=== PATIENT | female | born 1950 | race Caucasian/White ===

== ENCOUNTER 2020-08-29 13:30 | Outpatient (REF) | payer MEDICARE, OTHER, SELFPAY | END 2020-08-29 13:31 | disposition home or self-care (01) | LOC: HO.LNP 13:30 | PROVIDERS: PCP Internal Medicine; Referring Provider Internal Medicine; Visit Provider Internal Medicine Endocrinology, Diabetes & Metabolism | DX: E11.65 Type 2 diabetes mellitus with hyperglycemia (principal); E03.9 Hypothyroidism, unspecified; E78.5 Hyperlipidemia, unspecified; Z79.4 Long term (current) use of insulin | CPT/HCPCS: 99214 ==

== ENCOUNTER 2020-12-02 14:30 | Outpatient (REF) | payer MEDICARE, OTHER, SELFPAY | END 2020-12-02 14:31 | disposition home or self-care (01) | LOC: HO.HOSX 14:30 | PROVIDERS: Visit Provider Orthopaedic Surgery | DX: Z13.89 Encounter for screening for other disorder (principal) ==

== ENCOUNTER 2020-12-03 13:03 | Outpatient (REF) | payer MEDICARE, OTHER, SELFPAY ==
--- NOTE | 2020-12-03 13:09 | XR_ITS ---
EXAMINATION: BILATERAL KNEE X-RAY CLINICAL INFORMATION: Bilateral knee pain COMPARISON: Previous x-rays from 2011 TECHNIQUE: 3 views of each knee FINDINGS: Right: There is mild medial subluxation of the distal femur with respect to the proximal tibia. Bone alignment is normal. There is arthritis at the patellofemoral and femoral tibial joints with joint space narrowing and osteophyte formation. There is a moderate to large joint effusion. There may be ossified intra-articular loose bodies or complex joint effusion. Left: Bone alignment is normal. No fracture or dislocation is seen. There is mild arthritis at the patellofemoral and femoral tibial joints with joint space narrowing and osteophyte formation. There is a moderate to large joint effusion. XR/XR knee LT 2V IMPRESSION: Bilateral arthritis, right greater than left and large joint effusions. The right joint effusion appears heterogeneous in attenuation questionable for complex joint effusion versus possible ossified intra-articular loose bodies.
--- NOTE | 2020-12-03 13:09 | XR_ITS ---
EXAMINATION: BILATERAL KNEE X-RAY CLINICAL INFORMATION: Bilateral knee pain COMPARISON: Previous x-rays from 2011 TECHNIQUE: 3 views of each knee FINDINGS: Right: There is mild medial subluxation of the distal femur with respect to the proximal tibia. Bone alignment is normal. There is arthritis at the patellofemoral and femoral tibial joints with joint space narrowing and osteophyte formation. There is a moderate to large joint effusion. There may be ossified intra-articular loose bodies or complex joint effusion. Left: Bone alignment is normal. No fracture or dislocation is seen. There is mild arthritis at the patellofemoral and femoral tibial joints with joint space narrowing and osteophyte formation. There is a moderate to large joint effusion. XR/XR knee standing BI IMPRESSION: Bilateral arthritis, right greater than left and large joint effusions. The right joint effusion appears heterogeneous in attenuation questionable for complex joint effusion versus possible ossified intra-articular loose bodies.
--- NOTE | 2020-12-03 13:09 | XR_ITS ---
EXAMINATION: BILATERAL KNEE X-RAY CLINICAL INFORMATION: Bilateral knee pain COMPARISON: Previous x-rays from 2011 TECHNIQUE: 3 views of each knee FINDINGS: Right: There is mild medial subluxation of the distal femur with respect to the proximal tibia. Bone alignment is normal. There is arthritis at the patellofemoral and femoral tibial joints with joint space narrowing and osteophyte formation. There is a moderate to large joint effusion. There may be ossified intra-articular loose bodies or complex joint effusion. Left: Bone alignment is normal. No fracture or dislocation is seen. There is mild arthritis at the patellofemoral and femoral tibial joints with joint space narrowing and osteophyte formation. There is a moderate to large joint effusion. XR/XR knee RT 2V IMPRESSION: Bilateral arthritis, right greater than left and large joint effusions. The right joint effusion appears heterogeneous in attenuation questionable for complex joint effusion versus possible ossified intra-articular loose bodies.
== END 2020-12-03 13:04 | disposition home or self-care (01) ==
LOC: HO.HOSX 13:03
PROVIDERS: Visit Provider Orthopaedic Surgery
DX: M25.562 Pain in left knee (principal); M25.561 Pain in right knee
CPT/HCPCS: 73560; 73565; 99202

== ENCOUNTER 2020-12-29 10:13 | Outpatient (REF) | payer MEDICARE, OTHER, SELFPAY ==
[2020-12-29 11:50] LABS: Hematocrit 46.4 % (37-47); Hemoglobin 14.8 g/dl (12.0-16.0); Mean Corpuscular HGB Conc 31.9 g/dl (31.0-35.0); Mean Corpuscular Volume 90.8 fL (80-98); Mean Platelet Volume 10.4 fL (9.4-12.3); Platelet Count 215 X10*3/uL (160-400); Red Blood Count 5.11 X10*6/uL (4.20-5.50); Red Cell Distribution Width 12.1 % (11.0-16.0); White Blood Count 6.6 X10*3/uL (4.8-10.8)
[2020-12-29 12:18] LABS: Alanine Aminotransferase 19 U/L (0-31); Albumin Level 4.2 g/dL (3.5-5.0); Alkaline Phosphatase 49 U/L (39-117); Anion Gap 14 (12-20); Aspartate Amino Transferase 24 U/L (5-31); Bilirubin Total 0.7 mg/dL (0.0-1.0); Blood Urea Nitrogen 16 mg/dL (9-16); Calcium 9.4 mg/dL (8.4-10.2); Carbon Dioxide 32 mmol/L (22-29); Chloride 99 mmol/L (96-108); Cholesterol 149 mg/dL; Estimated Glomerular Filt Rate 52; Glucose Random 117 mg/dL (60-115); HDL Cholesterol 51 mg/dL; LDL Cholesterol Calculated 62 mg/dl; Potassium 4.8 mmol/L (3.3-5.1); Sodium 140 mmol/L (135-145); Total Protein 7.2 g/dL (6.5-8.0); Triglycerides 183 mg/dL
[2020-12-29 12:26] LABS: Thyroid Stimulating Hormone 3.27 uIU/mL (0.32-4.0)
[2020-12-29 12:33] LABS: Creatinine Urine 154.46 mg/dL; Microalbum/Creatinine Ratio Ur 18.7 ug/mg cr
[2020-12-29 18:45] LABS: Vitamin B12 497 pg/mL (200-900)
[2020-12-30 12:02] LABS: LDL Cholesterol Direct 75 mg/dL (<100)
== END 2020-12-29 10:14 | disposition home or self-care (01) ==
LOC: HO.LAB 10:13
PROVIDERS: Absent Provider Internal Medicine Endocrinology, Diabetes & Metabolism; PCP Internal Medicine; Visit Provider Internal Medicine
DX: Z01.810 Encounter for preprocedural cardiovascular examination (principal); I10 Essential (primary) hypertension; E78.5 Hyperlipidemia, unspecified; E11.65 Type 2 diabetes mellitus with hyperglycemia
CPT/HCPCS: 36415; 80053; 80061; 82043; 82607; 83721; 84439; 84443; 85027; 93005; 99202

== ENCOUNTER → 2020-12-30 08:22 | Outpatient (BNVA) | payer MEDICARE, OTHER, SELFPAY | PROVIDERS: PCP Internal Medicine; Visit Provider Internal Medicine Endocrinology, Diabetes & Metabolism | DX: E11.65 Type 2 diabetes mellitus with hyperglycemia (principal); E03.9 Hypothyroidism, unspecified; E66.9 Obesity, unspecified; E11.42 Type 2 diabetes mellitus with diabetic polyneuropathy; Z79.4 Long term (current) use of insulin | CPT/HCPCS: Q3014 ==

== ENCOUNTER → 2021-01-20 13:43 | Outpatient (BNVA) | payer MEDICARE, OTHER, SELFPAY | PROVIDERS: PCP Internal Medicine; Visit Provider Internal Medicine | DX: Z01.810 Encounter for preprocedural cardiovascular examination (principal); E11.8 Type 2 diabetes mellitus with unspecified complications; I10 Essential (primary) hypertension; E78.5 Hyperlipidemia, unspecified | CPT/HCPCS: 99212 ==

== ENCOUNTER → 2021-01-29 07:27 | Outpatient (REF) | payer MEDICARE, OTHER, SELFPAY ==
--- NOTE | 2021-01-29 07:33 | CA_ITS ---
Transthoracic Echocardiogram Patient (Last, First, Middle): Miriam Nogueira J Gender: Female Date of : 1950 Age: 70 Procedure Date: 01/29/2021 Procedure Type: Transthoracic Echocardiogram Location: OP Height: 162.56 cm Weight: 97.98 kg BSA: 2.02 m2 Heart Rate: bpm BP: 145 / 65 mmHg Rotary Cutter Operator: BETH Referring MD: Carson Bender MD Symptoms: Z01.810 - Encounter for preprocedural cardiovascular examination Study Quality: Fair ECG Rhythm: Sinus Conclusions: - The left ventricular systolic function is normal. The visually estimated ejection fraction is between 65-70%. - No obvious valvular pathology seen on this study. Findings Left Ventricle Normal left ventricular cavity size. There is normal left ventricular wall thickness. The left ventricular systolic function is normal. The visually estimated ejection fraction is between 65-70%. E/E prime ratio is >15, consistent with elevated filling pressures. Evidence suggests grade I (mild) diastolic dysfunction. Right Ventricle Normal right ventricular cavity size and systolic function. Atria The left atrium is normal in size. The right atrium is normal in size. Aortic Valve The aortic valve was not well visualized. There is no aortic valve stenosis. There is no aortic valve regurgitation. Mitral Valve The mitral valve appears normal. There is trace mitral valve regurgitation. There is no mitral valve stenosis. Pulmonic Valve The pulmonic valve was not well visualized. Tricuspid Valve The tricuspid valve was not well visualized. There is trace tricuspid valve regurgitation. The pulmonary artery systolic pressure is normal. Great Vessels The aortic annulus, sinuses of valsalva, and asc aorta are normal in size. Venous The inferior vena cava is normal in size and collapses greater than 50% with inspiration. Pericardium/Pleural There is no evidence of pericardial effusion. Prior Study Comparison No prior study available for comparison. Recommendations, Care & Conclusions No obvious valvular pathology seen on this study. Measurements M-Mode Liner Measurements Normals - Women/Men AOV Cusps: 2.10 1.5-2.6 cm/m2 2D Linear Measurements IVSd: 0.75 0.6-0.9/0.6-1.0 cm LVIDd: 3.52 3.9-5.3/4.2-5.9 cm LVIDd Index: 1.74 2.4-3.2/2.2-3.1 cm/m2 LVIDs: 2.32 2.0-3.6 cm LVPWd: 0.86 0.7-1.1 cm Ao Root: 2.40 2.1-3.5 cm LA Diam: 2.40 2.7-3.8/3.0-4.0 cm LAIDs Index: 1.19 1.5-2.3 cm/m2 LV Mass: 95.21 67-162/88-224 g LV Mass Index: 47.13 43-95/49-115 g/m2 LVOT Diam: 1.80 3.0+(-)1.3 cm 2D Systolic Function EF 4C: 75.00 >55% EF 2C: 76.10 >55% EF BiP: 75.20 >55% Mitral Valve MV Pk E: 1.16 MV PK A: 1.08 MV Decel Time: 239.00 E/A: 1.10 E'Lateral: 5.66 E'Medial: 7.83 E/E' Med: 14.80 E/E' Lat: 20.50 PHT: 70.00 MVA PHT: 3.14 Decel Childress: 4.84 Aortic Valve AoV Pk Jose: 1.36 AoV Pk Grad: 7.00 LVOT LVOT Pk Jose: 0.76 LVOT Mn Jose: 0.55 LVOT VTI: 0.18 LVOT Pk Grad: 2.00 LVOT Mn Grad: 1.00 LVOT Diam: 1.80 LVOT Area: 2.54 Diastolic Function MV Pk E: 1.16 MV Pk A: 1.08 E/A: 1.10 E'Medial: 7.83 E/E' Med: 14.80 E' Laterial: 5.66 E/E' Lat: 20.50 Tricuspid Valve RA Press: 3.00 Great Vessels Aorta Ao Root-2D: 2.40 2.0-3.7 cm Ao Asc: 2.90 2.1-3.4 cm Pulmonary Valve PV Pk Jose: 1.17 Peak PV Grad: 5.00 Updated in Other Vendor System with Status of Final Carson Bender MD electronically signed on 01/31/2021 12:17:06 PM with status of Final
== END ==
LOC: HO.CARD 07:27
PROVIDERS: Visit Provider Internal Medicine
DX: Z01.810 Encounter for preprocedural cardiovascular examination (principal); R06.02 Shortness of breath
CPT/HCPCS: 93306

== ENCOUNTER → 2021-02-26 12:50 | Outpatient (BNVA) | payer MEDICARE, OTHER, SELFPAY | PROVIDERS: PCP Internal Medicine; Visit Provider Orthopaedic Surgery ==

== ENCOUNTER 2021-02-27 07:47 | Inpatient (IN) | payer MEDICARE, OTHER, SELFPAY ==
[2021-02-27] VITALS (9 sets, daily range): BP systolic 115–170; BP diastolic 41–117; PULSE 78–95; RESP 16–20; TEMP 36.4–37.1; O2SAT 92–97; BMI 37.8
--- NOTE | ~2021-02-27 | CT_ITS ---
EXAMINATION: CT CHEST WITH CONTRAST CLINICAL INFORMATION: Abnormal chest x-ray COMPARISON: Previous chest x-rays most recent from earlier the same day and chest MRI December 2008 TECHNIQUE: Multidetector volumetric CT imaging of the chest was obtained after the administration of 60 mL of Omnipaque 350 intravenous contrast without immediate adverse reactions. Axial MIP volume rendering provided. Sagittal and coronal reformatted images were obtained. This CT examination was performed using dose optimization techniques as appropriate, variously including the following: *Automated exposure control *Adjustment of mA and/or kV according to patient size (this includes techniques or standardized protocols for targeted exams where dose is matched to indication/reason for exam; i.e. extremities or head) *Use of iterative reconstruction technique DLP: 444 mGy-cm FINDINGS: LUNGS: There is a subsegmental atelectasis in both lower lobes adjacent to the stomach. MEDIASTINUM: There is a large esophageal hernia or intrathoracic stomach. The stomach is dilated and filled with air and small amount of fluid. It does not appear to be evidence of a gastric volvulus. No gastric wall thickening or air in the wall of the stomach or surrounding fluid is seen. The heart does not appear enlarged. There is mild coronary artery calcification. There is no pericardial effusion. The thoracic aorta is normal in caliber. There are small mediastinal lymph nodes. PLEURA: There is no pleural effusion. No pleural mass or thickening. AXILLA: There are small bilateral axillary lymph nodes. UPPER ABDOMEN: There is diverticulosis of the colon. OSSEOUS STRUCTURES: There are degenerative changes of the spine. CT/CT chest w con IMPRESSION: Large esophageal hernia or intrathoracic stomach. The stomach is dilated and filled with air and small amount of fluid. There is no evidence of a gastric volvulus.
--- NOTE | ~2021-02-27 | XR_ITS ---
EXAMINATION: XR CHEST CLINICAL INFORMATION: Shortness of breath COMPARISON: Previous chest x-ray most recent October 2018 and MR of the chest December 2008 TECHNIQUE: Frontal view of the chest was obtained. FINDINGS: There is a large air-fluid level over the heart and lower bilateral chest suggestive of a large esophageal hernia or intrathoracic stomach. Clinical correlation to exclude gastric outlet obstruction/gastric volvulus is recommended. Hilar and mediastinal contours are otherwise normal. The lungs are clear. There is no pleural effusion or pneumothorax. There are degenerative changes of the spine. XR/XR chest 1V IMPRESSION: Large air-containing structure over the lower chest and mediastinum are suggestive of a large esophageal hernia or intrathoracic stomach. Clinical correlation to exclude left gastric outlet obstruction/volvulus recommended.
--- NOTE | 2021-02-27 07:58 | ED.GENADULT ---
HPI - General Adult General Chief complaint: General Medical Stated complaint: diff breathing Time Seen by Provider: 02/27/21 07:58 History of Present Illness HPI narrative: This is a 70 years old female brought here by ambulance with chief complaint of shortness of breath. Also complaining of nausea. The: Denies any chest pain, fever. She has history of diabetes, high blood pressure, she was catheterization December 15 within noncritical coronary artery disease, she had a recent normal echo Onset (ago): hour(s) (3) Severity: moderate Relieving factors: none Exacerbating factors: none Related Data Home Medications Medication Instructions Recorded Confirmed aspirin 81 mg tablet,delayed 81 mg PO DAILY 08/29/20 02/26/21 release cholecalciferol (vitamin D3) 25 25 mcg PO DAILY 08/29/20 02/26/21 mcg (1,000 unit) capsule cinnamon bark 500 mg capsule 1,000 mg PO DAILY 08/29/20 02/26/21 multivitamin 1 tab PO DAILY 08/29/20 02/26/21 omega-3 fatty acids 1,000 mg 1,000 mg PO DAILY 08/29/20 02/26/21 capsule niacin 500 mg tablet 500 mg PO DAILY 12/29/20 02/26/21 acetaminophen 650 mg 650 mg PO Q12H PRN 01/20/21 02/26/21 tablet,extended release Previous Rx's Medication Instructions Recorded blood sugar diagnostic #200 ea 12/05/20 exenatide microspheres 2 mg/0.85 2 mg SUBCUT QWEEK 90 Days #11.05 ml 12/05/20 mL subcutaneous auto-injector insulin glargine 100 unit/mL 20 unit SUBCUT QPM 90 Days #30 ml 12/30/20 subcutaneous solution levothyroxine 137 mcg tablet 137 mcg PO DAILY 90 Days #90 tab 12/30/20 lisinopril 20 mg tablet 20 mg PO DAILY 90 Days #90 tab 12/30/20 metformin 500 mg tablet,extended 2,000 mg PO DAILY 90 Days #360 tab 12/30/20 release 24 hr simvastatin 40 mg tablet 40 mg PO DAILY 90 Days #90 tab 12/30/20 amitriptyline 25 mg tablet 25 mg PO DAILY #90 tab 01/15/21 gabapentin 600 mg tablet 600 mg PO TID #270 tab 01/15/21 metoprolol succinate 100 mg 100 mg PO DAILY 90 Days #90 tab 02/18/21 tablet,extended release 24 hr lorazepam [Ativan] 0.5 mg PO DAILY PRN #5 tab 02/27/21 ondansetron HCl [Zofran] 4 mg PO Q8H PRN #14 tab 02/27/21 Allergies Allergy/AdvReac Type Severity Reaction Status Date / Time hydrocodone [From VICODIN] Allergy Unknown HEADACHE Verified 01/20/21 14:10 oxycodone [OXYCODONE] Allergy Unknown HIVES Verified 01/20/21 14:10 procaine [From NOVOCAIN] Allergy Unknown FAINTED Verified 01/20/21 14:10 Review of Systems Review of Systems: Yes all other systems are reviewed and are negative Cardiovascular: Cardiovascular: Reports dyspnea Respiratory: Respiratory: Reports dyspnea Gastrointestinal: Gastrointestinal: Reports no additional gastrointestinal complaints and Denies abdominal pain Psychiatric: Psychiatric: Reports no additional psychiatric complaints PMFSH Past Medical History Medical History Diabetes type 2, uncontrolled Diabetic polyneuropathy associated with type 2 diabetes mellitus 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 Hypertension Hypothyroidism 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 (insulin dependent diabetes mellitus) 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 Obesity (BMI 30-39.9) Surgical History History of cardiac catheterization Hx laparoscopic cholecystectomy Hx of appendectomy Hx of hammer toe correction Hx of shoulder surgery Hx of tonsillectomy Family History Family History Brother Diabetes Father Lung cancer Mother HTN (hypertension) Social History Social History Household Members: Children Smoking Status: Former smoker Tobacco Type: Cigarette Years Smoked: 20 Advance Directives: No Advance Directives Information Provided: No Physical Exam Vital Signs: Vital Signs: Last Vital Signs Temp 98 F 02/27/21 07:50 Pulse 86 02/27/21 11:46 Resp 18 02/27/21 11:46 BP 155/80 H 02/27/21 11:46 Pulse Ox 97 02/27/21 11:46 Body Mass Index 37.8 Const: General: cooperative, no acute distress and alert Orientation/consciousness: patient oriented x3 Limitations: no limitations HENMT: Head: Yes normal to inspection and Yes No palpable skull fracture present Eyes: General: appearance normal, both eyes and all related structures Neck: Neck: Yes normal visual inspection, Yes full ROM and Yes no lymphadenopathy Chest: Chest palpation & inspection: normal inspection of the chest Resp: Auscultation: clear to auscultation bilaterally Cardio: Jugular venous distension: no JVD Rate: regular rate Rhythm: regular rhythm GI: Inspection: Yes normal to inspection Palpation (GI): Soft to palpation, nontender and no guarding Skin: General skin exam: no rashes or lesions noted and elasticity normal Neuro: General: patient oriented x3 Course Reevaluation(s) Reevaluation #1: She is feeling better d-dimer is negative, no PE, non obsytructive coronary artery by cath, CT chest shows large esophageal hernia. I think part of the symptoms are related to the hernia. At this point I think the patient can be discharged home clinically improved Time: 12:37 Reevaluation #2: I spoke with the thoracic surgery service JESSE Kat after consulting with the thoracic attending Dr Brown , she recommend admission to the hospital with the NG tube. Time: 13:01 Reevaluation #3: I spoke with Medicine Dr Pelletier he will do consult in the pt Medical Decision Making MDM Narrative Medical decision making narrative: We are going to get an EKG, chest x-ray, labs. I do not think this patient has congestive heart failure she has a normal echo , I do think his anginal equivalent she had a noncritical coronary artery disease by cardiac catheterization Lab Data Result diagrams: 02/27/21 08:30 02/27/21 08:30 Labs: Lab Results 02/27/21 02/27/21 02/27/21 Range/Units 08:30 08:30 08:30 WBC 10.9 H (4.8-10.8) X10*3/uL RBC 5.22 (4.20-5.50) X10*6/uL Hgb 15.2 (12.0-16.0) g/dl Hct 47.7 H (37-47) % MCV 91.4 (80-98) fL MCH 29.1 (27.0-33.0) pg MCHC 31.9 (31.0-35.0) g/dl RDW 12.4 (11.0-16.0) % Plt Count 256 (160-400) X10*3/uL MPV 10.4 (9.4-12.3) fL Immature Gran % (Auto) 0.3 (0.0-0.4) % Neut % (Auto) 81.7 H (45-73) % Lymph % (Auto) 13.1 L (20-40) % Hinds % (Auto) 4.3 (2-11) % Eos % (Auto) 0.2 (0-4) % Baso % (Auto) 0.4 (0-2) % Lymph # (Auto) 1.4 (1.2-4.9) X10*3/uL Hinds # (Auto) 0.5 (0.1-1.2) X10*3/uL Eos # (Auto) 0.0 (0.0-0.4) X10*3/uL Baso # (Auto) 0.0 (0.0-0.2) X10*3/uL Abs Immat Gran (auto) 0.03 (0.00-0.03) X10*3/uL Absolute Neuts (auto) 8.9 H (2.0-8.3) X10*3/uL Absolute Nucleated RBC 0.000 (0.0-0.012) X10*3/uL Nucleated RBC % (auto) 0.0 (0.0-0.2) /100WBC PT (10.8-13.0) SEC INR (0.9-1.1) D-Dimer NG/ML Sodium 144 (135-145) mmol/L Potassium 4.2 (3.3-5.1) mmol/L Chloride 108 (96-108) mmol/L Carbon Dioxide 26 (22-29) mmol/L Anion Gap 14 (12-20) BUN 8 L (9-16) mg/dL Creatinine 0.80 (0.5-1.4) mg/dL Estim Creat Clear Calc 73.0 Estimated GFR > 60 Random Glucose 202 H D (60-115) mg/dL Calcium 8.4 D (8.4-10.2) mg/dL Total Bilirubin 0.4 (0.0-1.0) mg/dL AST 28 (5-31) U/L ALT 32 H (0-31) U/L Alkaline Phosphatase 51 (39-117) U/L Troponin I High Sens < 3.5 (<3.5-17.0) ng/L B-Natriuretic Peptide (<100) pg/mL Total Protein 7.0 (6.5-8.0) g/dL Albumin 3.9 (3.5-5.0) g/dL Coronavirus (PCR) (Negative) Influenza Type A (PCR) (Negative) Influenza Type B (PCR) (Negative) RSV RNA Qual (PCR) (Negative) 02/27/21 02/27/21 02/27/21 Range/Units 08:30 08:30 08:33 WBC (4.8-10.8) X10*3/uL RBC (4.20-5.50) X10*6/uL Hgb (12.0-16.0) g/dl Hct (37-47) % MCV (80-98) fL MCH (27.0-33.0) pg MCHC (31.0-35.0) g/dl RDW (11.0-16.0) % Plt Count (160-400) X10*3/uL MPV (9.4-12.3) fL Immature Gran % (Auto) (0.0-0.4) % Neut % (Auto) (45-73) % Lymph % (Auto) (20-40) % Hinds % (Auto) (2-11) % Eos % (Auto) (0-4) % Baso % (Auto) (0-2) % Lymph # (Auto) (1.2-4.9) X10*3/uL Hinds # (Auto) (0.1-1.2) X10*3/uL Eos # (Auto) (0.0-0.4) X10*3/uL Baso # (Auto) (0.0-0.2) X10*3/uL Abs Immat Gran (auto) (0.00-0.03) X10*3/uL Absolute Neuts (auto) (2.0-8.3) X10*3/uL Absolute Nucleated RBC (0.0-0.012) X10*3/uL Nucleated RBC % (auto) (0.0-0.2) /100WBC PT 12.1 (10.8-13.0) SEC INR 1.0 (0.9-1.1) D-Dimer < 200 NG/ML Sodium (135-145) mmol/L Potassium (3.3-5.1) mmol/L Chloride (96-108) mmol/L Carbon Dioxide (22-29) mmol/L Anion Gap (12-20) BUN (9-16) mg/dL Creatinine (0.5-1.4) mg/dL Estim Creat Clear Calc Estimated GFR Random Glucose (60-115) mg/dL Calcium (8.4-10.2) mg/dL Total Bilirubin (0.0-1.0) mg/dL AST (5-31) U/L ALT (0-31) U/L Alkaline Phosphatase (39-117) U/L Troponin I High Sens (<3.5-17.0) ng/L B-Natriuretic Peptide 61 (<100) pg/mL Total Protein (6.5-8.0) g/dL Albumin (3.5-5.0) g/dL Coronavirus (PCR) NEGATIVE (Negative) Influenza Type A (PCR) NEGATIVE (Negative) Influenza Type B (PCR) NEGATIVE (Negative) RSV RNA Qual (PCR) NEGATIVE (Negative) ECG Data Attestation: I personally reviewed and interpreted this ECG as follows: Pacemaker model: Normal sinus rhythm rate 86 poor R-wave progression V2 to V3 Discharge Plan Discharge Clinical Impression: Esophageal hiatal hernia Patient Disposition: Admitted As Inpatient
--- NOTE | 2021-02-27 08:06 | ECG_ITS ---
Test Reason : SOB Blood Pressure : / mmHG Vent. Rate : 086 BPM Atrial Rate : 086 BPM P-R Int : 218 ms QRS Dur : 076 ms QT Int : 368 ms P-R-T Axes : 069 062 074 degrees QTc Int : 440 ms Sinus rhythm with 1st degree A-V block Possible \ Anterior infarct , age undetermined Abnormal ECG When compared with ECG of 26-APR-2019 07:10, No significant change was found Referred By: James Zapata Electronically Signed By:MIKHAIL AGOSTO MD
[2021-02-27] MEDS: ondansetron HCL 4 MG/2 ML VIAL IVPUSH (08:25)
[2021-02-27] MEDS: LORazepam 2 MG/ML VIAL 0.5 MG IVPUSH (08:26)
[2021-02-27 08:41] LABS: MANUAL DIFF FLAG NO
[2021-02-27 08:44] LABS: Basophils Percent Auto 0.4 % (0-2); Eosinophils Percent Auto 0.2 % (0-4); Hematocrit 47.7 % (37-47); Hemoglobin 15.2 g/dl (12.0-16.0); Imm Gran Abs Auto 0.03 X10*3/uL (0.00-0.03); Imm Gran Pct Auto 0.3 % (0.0-0.4); Lymphocytes Absolute Auto 1.4 X10*3/uL (1.2-4.9); Lymphocytes Percent Auto 13.1 % (20-40); Mean Corpuscular HGB Conc 31.9 g/dl (31.0-35.0); Mean Corpuscular Hemoglobin 29.1 pg (27.0-33.0); Mean Corpuscular Volume 91.4 fL (80-98); Mean Platelet Volume 10.4 fL (9.4-12.3); Monocytes Absolute Auto 0.5 X10*3/uL (0.1-1.2); Monocytes Percent Auto 4.3 % (2-11); Neutrophils Absolute Auto 8.9 X10*3/uL (2.0-8.3); Neutrophils Percent Auto 81.7 % (45-73); Platelet Count 256 X10*3/uL (160-400); Red Blood Count 5.22 X10*6/uL (4.20-5.50); Red Cell Distribution Width 12.4 % (11.0-16.0); White Blood Count 10.9 X10*3/uL (4.8-10.8)
[2021-02-27 08:50] LABS: Prothrombin Time 12.1 SEC (10.8-13.0)
[2021-02-27 09:10] LABS: Alanine Aminotransferase 32 U/L (0-31); Albumin Level 3.9 g/dL (3.5-5.0); Alkaline Phosphatase 51 U/L (39-117); Anion Gap 14 (12-20); Aspartate Amino Transferase 28 U/L (5-31); Bilirubin Total 0.4 mg/dL (0.0-1.0); Blood Urea Nitrogen 8 mg/dL (9-16); Calcium 8.4 mg/dL (8.4-10.2); Carbon Dioxide 26 mmol/L (22-29); Chloride 108 mmol/L (96-108); Estimated Glomerular Filt Rate > 60; Glucose Random 202 mg/dL (60-115); Potassium 4.2 mmol/L (3.3-5.1); Sodium 144 mmol/L (135-145)
[2021-02-27 09:14] LABS: B Type Natriuretic Peptide 61 pg/mL (<100); Troponin-I High Sensitivity < 3.5 ng/L (<3.5-17.0)
[2021-02-27 09:15] LABS: D Dimer < 200 NG/ML
[2021-02-27 09:40] LABS: Influenza A PCR NEGATIVE (Negative); Influenza B PCR NEGATIVE (Negative); Resp Syncy Virus RNA Qual PCR NEGATIVE (Negative); SARS COV2 PCR INHOUSE NEGATIVE (Negative)
[2021-02-27] MEDS: iohexoL 350 MG/ML 75 ML INFUS..BTL IV (10:42)
[2021-02-27] MEDS: diphenhydrAMINE HCL 50 MG/ML VIAL 25 MG IVPUSH (14:27)
[2021-02-27] MEDS: Metoclopramide HCl 10 MG/2 ML VIAL IVPUSH (14:27)
--- NOTE | 2021-02-27 14:32 | PC.NURSE ---
medicated for nausea
--- NOTE | 2021-02-27 16:20 | P.HPGS_ITS ---
History of Present Illness History of Present Illness Date of Service: 02/27/21 Chief complaint: Hiatal Hernia Narrative: Miriam Nogueira is a 70 year old female with a past medical history of diabetes for which she takes metforminLantus and Bydureon, hypertension, hyperlipidemia, hypothyroidism, CHF cardiovascular disease with recent normal echocardiogram, neuropathy as well as a 50 year plus history of hiatal hernia. Patient presented today to the emergency department with com plaints of nausea, shortness of breath and some fullness in her chest. A chest CT was performed which shows a very large hiatal hernia. The stomach is dilated and filled with air and small amount of fluid. There does not appear to be evidence of gastric volvulus. No gastric wall thickening or air in the wall of the stomach or surrounding fluid is seen. Patient informs me that she has been dealing with symptoms of her hiatal hernia for many years. She states the last time she presented to the emergency department was 2 years ago at [facility] at which point in time she was discharged with recommendations to seek out a thoracic surgeon for possible surgical intervention. She states she never bothered following through because she only become symptomatic when she ?excessively eats which happens probably once a year?. Patient informs me that she had many large meals yesterday and woke up with her shortness of breath and chest fullness. Patient states she has not eaten anything today and that her shortness of breath has improved since coming to the hospital. While in the ED she is currently hemodynamically stable, hematocrit 48 with mild leukocytosis of 10.8 BP 120/58, heart rate 81, oxygen saturations 97% on room air and does not appear to be in any distress. She denies any chest pain, vomiting, fever, chills, abdominal pain, difficulty urinating. She does admit to some nausea which has improved with Zofran. Patient was made NPO with plans for placement of NG tube set to wall suction for decompression of stomach. 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 Functional capacity: independent ambulation Patient : No Family History Family History Brother Diabetes Father Lung cancer Mother HTN (hypertension) Family history: reviewed and not pertinent Surgical History Surgical History History of cardiac catheterization Hx laparoscopic cholecystectomy Hx of appendectomy Hx of hammer toe correction Hx of shoulder surgery Hx of tonsillectomy Social History Social History Household Members: Children Smoking Status: Former smoker Tobacco Type: Cigarette Years Smoked: 20 Advance Directives: No Advance Directives Information Provided: No Meds Allergies Allergy/AdvReac Type Severity Reaction Status Date / Time hydrocodone [From VICODIN] Allergy Unknown HEADACHE Verified 01/20/21 14:10 oxycodone [OXYCODONE] Allergy Unknown HIVES Verified 01/20/21 14:10 procaine [From NOVOCAIN] Allergy Unknown FAINTED Verified 01/20/21 14:10 Active Medications: Current Medications Generic Name Dose Route Start Last Admin Trade Name Freq PRN Reason Stop Dose Admin Sodium Chloride 1,000 mls @ 100 mls/hr 02/27/21 16:09 Ns IVCONT .Q10H [facility] Consult 1 each 02/27/21 15:49 Consult Rx Perform Med Rec MISCELLANE ONCE PRN Consult order Home Medications Medication Instructions Recorded Confirmed Last Taken Type amitriptyline 25 mg PO DAILY 02/27/21 02/27/21 Unknown History aspirin 81 mg PO DAILY 02/27/21 02/27/21 Unknown History cholecalciferol (vitamin D3) 25 mcg PO DAILY 02/27/21 02/27/21 Unknown History exenatide microspheres 2 mg SUBCUT Q7D 02/27/21 02/27/21 Unknown History gabapentin 600 mg PO TID 02/27/21 02/27/21 Unknown History insulin glargine [Lantus Solostar 20 unit SUBCUT QPM 02/27/21 02/27/21 Unknown History U-100 Insulin] levothyroxine 137 mcg PO DAILY 02/27/21 02/27/21 Unknown History lisinopril 20 mg PO DAILY 02/27/21 02/27/21 Unknown History metformin 2,000 mg PO DAILY 02/27/21 02/27/21 Unknown History metoprolol succinate 100 mg PO DAILY 02/27/21 02/27/21 Unknown History multivitamin 1 tab PO DAILY 02/27/21 02/27/21 Unknown History simvastatin 40 mg PO BEDTIME 02/27/21 02/27/21 Unknown History Physical Exam Vital Signs: Vital Signs: Last Vital Signs Temp 98 F 02/27/21 07:50 Pulse 81 02/27/21 14:20 Resp 16 02/27/21 14:20 BP 120/58 L 02/27/21 14:20 Pulse Ox 97 02/27/21 11:46 Body Mass Index 37.8 Const: General: cooperative, comfortable and no acute distress Nutritional Appearance: obese Orientation/consciousness: patient oriented x3 HENMT: Head: Yes normal to inspection, Yes normocephalic and Yes atraumatic Mouth: Normal oral and palatal mucosa present Eyes: General: appearance normal, both eyes and all related structures Sclerae: sclerae normal Pupils: Equal, round and reactive pupils present EOM: EOMs intact bilaterally Neck: Neck: Yes normal visual inspection, Yes trachea midline and Yes supple Chest: Chest palpation & inspection: normal inspection of the chest Resp: Other: Breath sounds are clear to auscultation bilaterally in upper lung peter with diminished breath sounds bilaterally in lower posterior lung peter. Effort & Inspection: normal respiratory effort and able to speak in complete sentences Cardio: Jugular venous distension: no JVD Rate: regular rate Rhythm: regular rhythm Heart sounds: S1 normal heart sound present, S2 normal heart sound present, no gallops and no murmurs GI: Inspection: Yes obesity Palpation (GI): Soft to palpation and nontender Auscultation: Hyperactive bowel sounds present Skin: General skin exam: turgor normal, no jaundice and no mottling Neuro: General: patient oriented x3 Cranial nerves: Yes Equal, round and reactive pupils present Results Results Labs: Short CBC 02/27/21 Range/Units 08:30 WBC 10.9 H (4.8-10.8) X10*3/uL Hgb 15.2 (12.0-16.0) g/dl Hct 47.7 H (37-47) % Plt Count 256 (160-400) X10*3/uL [facility] 02/27/21 08:30 Sodium 144 Potassium 4.2 Chloride 108 Carbon Dioxide 26 BUN 8 L Creatinine 0.80 Calcium 8.4 D Liver Function 02/27/21 Range/Units 08:30 Total Bilirubin 0.4 (0.0-1.0) mg/dL AST 28 (5-31) U/L ALT 32 H (0-31) U/L Alkaline Phosphatase 51 (39-117) U/L Albumin 3.9 (3.5-5.0) g/dL Assessment and Plan (1) Hiatal hernia: Status: Acute Patient is a 70-year-old female with past medical history of diabetes for which she takes metformin, Lantus and Bydureon, hypertension, hyperlipidemia, hypothyroidism, CHF, cardiovascular disease with recent normal echocardiogram November 2020, neuropathy as well as a 50+ year history of hiatal hernia. Presents to the emergency department with complaints of nausea and shortness of breath with some fullness in her chest found to have a very large hiatal hernia. -admitted to [facility] [place] for overnight observation and stomach decompression -patient made NPO with NG tube set to wall suction for decompression of stomach. -DVT prophylaxis with sequentials and subcu heparin 5000 units sc q12 -medicine Team consulted who informed me that they will be managing patient's diabetes and other medical issues while admitted. -patient will be reassessed tomorrow to determine if surgical intervention is required.
[2021-02-27] MEDS: 0.9 % Sodium Chloride 1,000 ML 100 ML IVCONT (17:05)
--- NOTE | 2021-02-27 17:08 | ED.GENADULT ---
HPI - General Adult General Chief complaint: General Medical Stated complaint: diff breathing Time Seen by Provider: 02/27/21 07:58 History of Present Illness Relieving factors: none Exacerbating factors: none Related Data Home Medications Medication Instructions Recorded Confirmed amitriptyline 25 mg PO DAILY 02/27/21 03/31/21 aspirin 81 mg PO DAILY 02/27/21 03/31/21 cholecalciferol (vitamin D3) 25 mcg PO DAILY 02/27/21 03/31/21 exenatide microspheres 2 mg SUBCUT Q7D 02/27/21 03/31/21 gabapentin 600 mg PO TID 02/27/21 03/31/21 levothyroxine 137 mcg PO DAILY 02/27/21 03/31/21 lisinopril 20 mg PO DAILY 02/27/21 03/31/21 metformin 2,000 mg PO DAILY 02/27/21 03/31/21 metoprolol succinate 100 mg PO DAILY 02/27/21 03/31/21 multivitamin 1 tab PO DAILY 02/27/21 03/31/21 simvastatin 40 mg PO BEDTIME 02/27/21 03/31/21 Previous Rx's Medication Instructions Recorded Lantus Solostar U-100 Insulin 10 unit SUBCUT QPM #0 ml 03/01/21 Allergies Allergy/AdvReac Type Severity Reaction Status Date / Time hydrocodone [From VICODIN] Allergy Unknown HEADACHE Verified 03/31/21 14:31 oxycodone [OXYCODONE] Allergy Unknown HIVES Verified 03/31/21 14:31 procaine [From NOVOCAIN] Allergy Unknown FAINTED Verified 03/31/21 14:31 [facility] Past Medical History Medical History Diabetes type 2, uncontrolled Diabetic polyneuropathy associated with type 2 diabetes mellitus 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 Hypertension Hypothyroidism IDDM (insulin dependent diabetes mellitus) USP (current) use of insulin Obesity (BMI 30-39.9) Surgical History History of cardiac catheterization Hx laparoscopic cholecystectomy Hx of appendectomy Hx of hammer toe correction Hx of shoulder surgery Hx of tonsillectomy Family History Family History Brother Diabetes Father Lung cancer Mother HTN (hypertension) Social History Social History Household Members: Family Housing: Condominium Smoking Status: Never smoker Tobacco Type: Cigarette Years Smoked: 20 Second Hand Smoke Exposure: No service: No Current occupational status: retired Physical Exam Vital Signs: Vital Signs: Last Vital Signs Temp 97.6 F 03/01/21 08:00 Pulse 60 03/01/21 11:37 Resp 20 03/01/21 11:37 BP 135/58 L 03/01/21 11:37 Pulse Ox 93 03/01/21 11:37 Body Mass Index 37.8 Medical Decision Making Lab Data Result diagrams: 02/28/21 05:44 03/01/21 05:59 Labs: Lab Results 02/27/21 02/27/21 02/27/21 Range/Units 08:30 08:30 08:30 WBC 10.9 H (4.8-10.8) X10*3/uL RBC 5.22 (4.20-5.50) X10*6/uL Hgb 15.2 (12.0-16.0) g/dl Hct 47.7 H (37-47) % MCV 91.4 (80-98) fL MCH 29.1 (27.0-33.0) pg MCHC 31.9 (31.0-35.0) g/dl RDW 12.4 (11.0-16.0) % Plt Count 256 (160-400) X10*3/uL MPV 10.4 (9.4-12.3) fL Immature Gran % (Auto) 0.3 (0.0-0.4) % Neut % (Auto) 81.7 H (45-73) % Lymph % (Auto) 13.1 L (20-40) % [place] % (Auto) 4.3 (2-11) % Eos % (Auto) 0.2 (0-4) % Baso % (Auto) 0.4 (0-2) % Lymph # (Auto) 1.4 (1.2-4.9) X10*3/uL [place] # (Auto) 0.5 (0.1-1.2) X10*3/uL Eos # (Auto) 0.0 (0.0-0.4) X10*3/uL Baso # (Auto) 0.0 (0.0-0.2) X10*3/uL Abs Immat Gran (auto) 0.03 (0.00-0.03) X10*3/uL Absolute Neuts (auto) 8.9 H (2.0-8.3) X10*3/uL Absolute Nucleated RBC 0.000 (0.0-0.012) X10*3/uL Nucleated RBC % (auto) 0.0 (0.0-0.2) /100WBC PT (10.8-13.0) SEC INR (0.9-1.1) D-Dimer NG/ML Sodium 144 (135-145) mmol/L Potassium 4.2 (3.3-5.1) mmol/L Chloride 108 (96-108) mmol/L Carbon Dioxide 26 (22-29) mmol/L Anion Gap 14 (12-20) BUN 8 L (9-16) mg/dL Creatinine 0.80 (0.5-1.4) mg/dL Estim Creat Clear Calc 73.0 Estimated GFR > 60 Random Glucose 202 H D (60-115) mg/dL Calcium 8.4 D (8.4-10.2) mg/dL Total Bilirubin 0.4 (0.0-1.0) mg/dL AST 28 (5-31) U/L ALT 32 H (0-31) U/L Alkaline Phosphatase 51 (39-117) U/L Troponin I High Sens < 3.5 (<3.5-17.0) ng/L B-Natriuretic Peptide (<100) pg/mL Total Protein 7.0 (6.5-8.0) g/dL Albumin 3.9 (3.5-5.0) g/dL Coronavirus (PCR) (Negative) Influenza Type A (PCR) (Negative) Influenza Type B (PCR) (Negative) RSV RNA Qual (PCR) (Negative) 02/27/21 02/27/21 02/27/21 Range/Units 08:30 08:30 08:33 WBC (4.8-10.8) X10*3/uL RBC (4.20-5.50) X10*6/uL Hgb (12.0-16.0) g/dl Hct (37-47) % MCV (80-98) fL MCH (27.0-33.0) pg MCHC (31.0-35.0) g/dl RDW (11.0-16.0) % Plt Count (160-400) X10*3/uL MPV (9.4-12.3) fL Immature Gran % (Auto) (0.0-0.4) % Neut % (Auto) (45-73) % Lymph % (Auto) (20-40) % [place] % (Auto) (2-11) % Eos % (Auto) (0-4) % Baso % (Auto) (0-2) % Lymph # (Auto) (1.2-4.9) X10*3/uL [place] # (Auto) (0.1-1.2) X10*3/uL Eos # (Auto) (0.0-0.4) X10*3/uL Baso # (Auto) (0.0-0.2) X10*3/uL Abs Immat Gran (auto) (0.00-0.03) X10*3/uL Absolute Neuts (auto) (2.0-8.3) X10*3/uL Absolute Nucleated RBC (0.0-0.012) X10*3/uL Nucleated RBC % (auto) (0.0-0.2) /100WBC PT 12.1 (10.8-13.0) SEC INR 1.0 (0.9-1.1) D-Dimer < 200 NG/ML Sodium (135-145) mmol/L Potassium (3.3-5.1) mmol/L Chloride (96-108) mmol/L Carbon Dioxide (22-29) mmol/L Anion Gap (12-20) BUN (9-16) mg/dL Creatinine (0.5-1.4) mg/dL Estim Creat Clear Calc Estimated GFR Random Glucose (60-115) mg/dL Calcium (8.4-10.2) mg/dL Total Bilirubin (0.0-1.0) mg/dL AST (5-31) U/L ALT (0-31) U/L Alkaline Phosphatase (39-117) U/L Troponin I High Sens (<3.5-17.0) ng/L B-Natriuretic Peptide 61 (<100) pg/mL Total Protein (6.5-8.0) g/dL Albumin (3.5-5.0) g/dL Coronavirus (PCR) NEGATIVE (Negative) Influenza Type A (PCR) NEGATIVE (Negative) Influenza Type B (PCR) NEGATIVE (Negative) RSV RNA Qual (PCR) NEGATIVE (Negative) Discharge Plan Discharge Clinical Impression: Esophageal hiatal hernia Patient Disposition: Admitted As Inpatient Interventions: Admission Worksheet (ED) Last Done: 02/28/21 01:02 Discharge Date/Time: 02/27/21 23:30
[2021-02-27] MEDS: Lidocaine HCl 4 % Laryng-O-Jet 4 ML 1 APPL TOPICAL (18:00)
--- NOTE | 2021-02-27 18:04 | PC.NURSE ---
NUMEROUS FAILED ATTEMPTS WITH MULTIPLE RNS TO PLACE NGT. ATTEMPTED WITH LIDOJET WELL, WITH NO RESULT. JESSE GONZALEZ AWARE, PT TO BE GIVEN ATIVAN PRIOR TO NEXT ATTEMPT BY HER.
[2021-02-27 18:19] LABS: Glucose, Whole Blood 137 mg/dL (60-115)
[2021-02-27] MEDS: Heparin Sodium,Porcine 5,000 UNIT/ML VIAL 5000 UNIT SUBCUT (18:31)
[2021-02-27] MEDS: LORazepam 2 MG/ML VIAL 1 MG IVPUSH (18:31)
[2021-02-27] MEDS: 0.9 % Sodium Chloride Flush 3 ML SYRINGE IVFLUSH (18:32)
--- NOTE | 2021-02-27 19:35 | PC.NURSE ---
DAUGHTER KALIN UPDATED WITH CONSENT [phone]
--- NOTE | 2021-02-27 20:28 | PC.NURSE ---
CALLED UP TO [facility] TO GIVE REPORT, EXPECTING CALL BACK. CONTACTED MD ZUNIGA AND JESSE POLLACK RE: INABILITY TO PLACE NGT. PT IS CURRENTLY NOT NAUSEOUS, OR ACTIVELY VOMITING. SHE MAINTAINED NPO STATUS SINCE HER ARRIVAL TO THE ED. PER MD ZUNIGA, SHOULD THERE BE ISSUES TOMORROW WITH PLACEMENT, IR COULD BE CALLED UP TO PLACE TUBE.
--- NOTE | 2021-02-27 21:57 | PC.NURSE ---
REPORT GIVEN TO RN
[2021-02-27 23:44] LABS: Glucose, Whole Blood 133 mg/dL (60-115)
[2021-02-28] VITALS (7 sets, daily range): BP systolic 130–150; BP diastolic 60–70; PULSE 74–82; RESP 18–20; TEMP 36.2–37.1; O2SAT 90–94
--- NOTE | 2021-02-28 03:03 | CONS_ITS ---
DATE OF SERVICE: 02/27/2021 CHIEF COMPLAINT: Shortness of breath and nausea. HISTORY OF PRESENTING ILLNESS: This is a 70-year-old female patient with known history of esophageal hernia as well as history of diabetes mellitus with polyneuropathy, history of hypertension, hyperlipidemia, who presented to [facility] due to symptoms of dry heaving associated with shortness of breath and mid chest pressure and discomfort. As per patient, she ate a lot yesterday. She went crazy with food and around 10:30 p.m., her above symptoms started. Therefore, she came to the emergency room. In the ER, a chest CT was obtained that showed the patient has large esophageal hernia/intrathoracic stomach. The stomach was dilated and filled with air and a small amount of fluid. There was no evidence of gastric volvulus. An EKG shows first-degree AV block with no acute ischemic changes. Laboratory data showed near normal WBC count, stable hematocrit, platelets and electrolytes. Normal renal function. Blood sugar of 202 and a troponin of less than 3.5. The patient in the emergency room was treated with IV Ativan, IV Zofran, Reglan, and subsequently, Thoracic Surgery was consulted and they recommend the patient to be admitted to the service and they obtained a medical consult for management of the patient's blood sugar, hypothyroidism and as well as hypertension. The patient will be kept n.p.o. today and will be reassessed by Thoracic Surgery. She will have an NG tube placed for decompression. PAST MEDICAL HISTORY: Significant for: 1. Type 2 diabetes mellitus on insulin for last several years. 2. History of diabetic neuropathy. 3. History of hypertension. 4. History of hyperlipidemia. 5. History of hypothyroidism. 6. History of osteoarthritis of both knees. 7. History of known esophageal hiatal hernia. SOCIAL HISTORY: The patient's son lives with her. She is a former smoker. She rarely drinks alcohol. She ambulates without assistive device and rarely uses a cane. FAMILY HISTORY: 1. Mother of cancer, the patient is not aware of source. 2. Father of metastatic lung cancer. REVIEW OF SYSTEMS: EDUCATION GENERAL MANAGER: The patient denies any headache, lightheadedness, or dizziness. CVS: No chest pain other than chest pressure mid chest associated with dry heaving and nausea. : No urinary symptoms of urgency or frequency. SKIN: She denies any rashes. MUSCULOSKELETAL: She denies any flare of her osteoarthritis. Rest of all other systems are reviewed and are negative. ALLERGIES: THE PATIENT IS ALLERGIC TO OXYCODONE, HYDROCODONE, AND PROCAINE THAT CAUSES FAINTING. MEDICATIONS ON ADMISSION: Metoprolol 100 mg by mouth daily, lisinopril 20 mg daily, levothyroxine 137 mcg daily, Lantus insulin 20 units at bedtime, vitamin D3 25 mcg daily, gabapentin 600 t.i.d., metformin 2000 mg daily, multivitamin 1 p.o. daily, and Zocor 40 mg at bedtime, PHYSICAL EXAMINATION: GENERAL: The patient is awake, alert. Does not appear to be in acute distress, resting comfortably. VITAL SIGNS: Blood pressure 123/62, pulse of 91, respiratory rate 20, temp 98.7, and room air finger oximetry of 93%. HEENT: Pupils equal, round, and reactive to light and accommodation. Extraocular muscles intact. Anicteric sclerae. NECK: Supple. LUNGS: Clear to auscultation. Diminished breath sound at bases. HEART: Regular rate and rhythm. ABDOMEN: Soft, nontender. Bowel sounds are audible. No rebound, rigidity, or palpable masses. EXTREMITIES: Without clubbing, cyanosis, or edema. NEURO: Nonfocal. Speech is clear. SKIN: Without any rashes. LABORATORY DATA: WBC 10.9, hemoglobin 15.2, hematocrit 47, and platelet of 256. Sodium 144, potassium 4.2, chloride 108, BUN 8, and a creatinine of 0.8, blood sugar 202, albumin 3.9. ASSESSMENT AND PLAN: This is a 70-year-old female patient with multiple medical issues including history of diabetes mellitus, diabetic neuropathy. Osteoarthritis, hypertension, hyperlipidemia, known history of esophageal hernia for last several years, presented to [facility] due to symptoms of shortness of breath, nausea, and dry heaving after eating food yesterday. The patient has been admitted under thoracic surgery and being followed by medical team for management of diabetes, hypertension and other medical issues. PROBLEM LIST: 1. Large hiatal hernia with intrathoracic stomach. The patient will be kept n.p.o. Will have an NG tube for decompression. 2. Diabetes mellitus, on insulin. We will hold Lantus and metformin. The patient will be placed on insulin sliding scale and point of care blood sugar monitoring every 6 hours. 3. History of hypertension. The patient will be placed on lisinopril and metoprolol. We will follow blood pressure closely. If the patient develops any nausea, vomiting, or diarrhea, we will give intravenous medications. 4. History of hypothyroidism. We will give intravenous levothyroxine. 5. History of hyperlipidemia. We will hold statins. 6. History of question coronary artery disease. We will hold aspirin. We will hold anticoagulation. Continue patient on beta-blockers. 7. Deep vein thrombosis prophylaxis with compression boots. 8. Code status. The patient wishes to be a full code. Thank you for allowing us to participate in the care of this patient. MD SHAYNA Woodall/CATALINA / [phone]
[2021-02-28 05:52] LABS: Glucose, Whole Blood 122 mg/dL (60-115)
[2021-02-28 06:12] LABS: MANUAL DIFF FLAG NO
[2021-02-28 06:18] LABS: Basophils Percent Auto 0.4 % (0-2); Eosinophils Absolute Auto 0.2 X10*3/uL (0.0-0.4); Eosinophils Percent Auto 2.1 % (0-4); Hematocrit 38.1 % (37-47); Hemoglobin 12.1 g/dl (12.0-16.0); Imm Gran Abs Auto 0.02 X10*3/uL (0.00-0.03); Imm Gran Pct Auto 0.3 % (0.0-0.4); Lymphocytes Percent Auto 28.9 % (20-40); Mean Corpuscular HGB Conc 31.8 g/dl (31.0-35.0); Mean Corpuscular Hemoglobin 29.4 pg (27.0-33.0); Mean Corpuscular Volume 92.5 fL (80-98); Mean Platelet Volume 10.2 fL (9.4-12.3); Monocytes Absolute Auto 0.7 X10*3/uL (0.1-1.2); Monocytes Percent Auto 9.9 % (2-11); Neutrophils Absolute Auto 4.1 X10*3/uL (2.0-8.3); Neutrophils Percent Auto 58.4 % (45-73); Platelet Count 207 X10*3/uL (160-400); Red Blood Count 4.12 X10*6/uL (4.20-5.50); Red Cell Distribution Width 12.6 % (11.0-16.0); White Blood Count 7.1 X10*3/uL (4.8-10.8)
[2021-02-28] MEDS: 0.9 % Sodium Chloride 1,000 ML 100 ML IVCONT (06:34)
[2021-02-28] MEDS: Heparin Sodium,Porcine 5,000 UNIT/ML VIAL 5000 UNIT SUBCUT ×2 (06:34→16:59)
[2021-02-28 06:38] LABS: Anion Gap 11 (12-20); Blood Urea Nitrogen 9 mg/dL (9-16); Calcium 8.5 mg/dL (8.4-10.2); Carbon Dioxide 31 mmol/L (22-29); Chloride 107 mmol/L (96-108); Creatinine Clr Calc Pharmacy 70.4; Estimated Glomerular Filt Rate > 60; Glucose Random 126 mg/dL (60-115); Potassium 3.9 mmol/L (3.3-5.1); Sodium 145 mmol/L (135-145)
[2021-02-28 07:03] LABS: Glucose, Whole Blood 126 mg/dL (60-115)
[2021-02-28 11:17] LABS: Glucose, Whole Blood 134 mg/dL (60-115)
[2021-02-28] MEDS: Levothyroxine Sodium 100 MCG VIAL 75 MCG IVPUSH (11:25)
--- NOTE | 2021-02-28 13:27 | P.PNIM_ITS ---
Subjective Subjective Date of Service: 02/28/21 Interval History: Patient resting comfortably had a stable night no nausea no vomiting no chest discomfort remains NPO NG tube was not placed due to difficulty in insertion. ROS General no headache, no dizziness ,no fever chills. CVS no chest pain, no palpitation. Respiratory no cough, no sob Gastrointestinal no nausea, no vomiting, no abdominal pain Physical Exam Vital Signs: Vital Signs: Last Vital Signs Temp 97.4 F 02/28/21 11:19 Pulse 81 02/28/21 11:19 Resp 20 02/28/21 11:19 BP 150/68 H 02/28/21 11:19 Pulse Ox 91 L 02/28/21 11:19 Body Mass Index 37.8 General patient resting comfortably,no acute distress. Neck supple no JVD. CVS regular rate rhythm, Respiratory lungs clear to auscultation, diminished at bases, no respiratory distress. Gastrointestinal abdomen soft, nontender, bowel sounds audible, no guarding , no rigidity. Extremities no edema. Neuro nonfocal , speech clear. Skin no rash Objective Data Current Medications Generic Name Dose Route Start Last Admin Trade Name Freq PRN Reason Stop Dose Admin Heparin Sodium (Porcine) 5,000 unit 02/27/21 18:00 02/28/21 06:34 Heparin Sodium,Porcine 5,000 Unit/Ml Vial SUBCUT 5,000 unit Q12H KAYLA Administration Sodium Chloride 1,000 mls @ 100 mls/hr 02/27/21 16:09 02/28/21 12:57 Ns IVCONT Not Given .Q10H [facility] Insulin Human Lispro 0 unit 02/27/21 17:00 02/28/21 11:26 Insulin Lispro 100 Unit/Ml 3 Ml Vial SUBCUT Not Given Q6H [facility] Protocol Levothyroxine Sodium 112 mcg 02/28/21 06:00 Levothyroxine Sodium 112 Mcg Tablet PO DAILY@0600 [facility] Levothyroxine Sodium 25 mcg 02/28/21 06:00 Levothyroxine Sodium 25 Mcg Tablet PO DAILY@0600 [facility] Levothyroxine Sodium 75 mcg 02/28/21 10:00 02/28/21 11:25 Levothyroxine Sodium 100 Mcg Vial IVPUSH 75 mcg DAILY@0600 KAYLA Administration Ondansetron HCl 4 mg 02/27/21 17:19 Ondansetron Hcl 4 Mg/2 Ml Vial IVPUSH Q8H PRN Nausea and Vomiting Pharmacy Consult 1 each 02/27/21 15:49 Consult Rx Perform Med Rec MISCELLANE ONCE PRN Consult order Sodium Chloride 3 ml 02/27/21 17:19 02/28/21 10:01 0.9 % Sodium Chloride Flush 3 Ml Syringe IVFLUSH Not Given QSHIFT KAYLA Labs CBC & Chem 7: 02/28/21 05:44 02/28/21 05:44 Assessment and Plan (1) Nausea: Status: Acute (2) Esophageal hiatal hernia: Status: Acute (3) Essential hypertension: Status: Acute (4) Diabetes type 2, uncontrolled: Status: Acute (5) Obesity (BMI 30-39.9): Status: Acute (6) Hypertension: Status: Acute (7) Hypothyroidism: Status: Acute (8) 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: Status: Acute (9) roasterman (current) use of insulin: Status: Acute Assessment and Plan: 1. nausea/Large hiatal hernia with intrathoracic stomach, no acute issues overnight, no nausea , no vomiting, is n.p.o. unable to place NG tube despite multiple attempts, await thoracic surgery input Will place on IV Pepcid for GI prophylaxis. Stable electrolytes and renal function. Continue IV fluid and follow clinical course. 2. Diabetes mellitus, on insulin. Since NPO will continue to hold Lantus and metformin and continue insulin sliding scale q.i.d. and check point of care insulin 3. History of hypertension. Home medications lisinopril and metoprolol on hold since patient is NPO will place patient on IV Lopressor to avoid reflex tachycardia 4. History of hypothyroidism. Placed on intravenous levothyroxine. 5. History of hyperlipidemia. hold statins. 6. History of question coronary artery disease. No chest pain, no shortness of breath will hold aspirin on iv beta-blockers. 7. Deep vein thrombosis prophylaxis with compression boots. 8. Code status. full code.
--- NOTE | 2021-02-28 14:08 | P.PNTS_ITS ---
Subjective Subjective Date of Service: 02/28/21 Interval history: NGT unable to placed yesterday after multiple attempts. Patient feeling well this morning. No issues overnight. States her breathing has returned to normal and denies any specific complaints currently. Denies any chest pain, SOB, abdominal pain/distention, constipation/diarrhea, belching, hiccups, reflux, nausea, or vomiting. Physical Exam Vital Signs: Vital Signs: Last Vital Signs Temp 97.4 F 02/28/21 11:19 Pulse 81 02/28/21 11:19 Resp 20 02/28/21 11:19 BP 150/68 H 02/28/21 11:19 Pulse Ox 91 L 02/28/21 11:19 Body Mass Index 37.8 General: No acute distress, resting comfortably in recliner, well developed Head: Normocephalic, atraumatic, symmetric Eyes: Sclera anicteric, eyelids *without edema or erythema, +EOMS intact ENT: Oral mucosa and tongue are moist without lesions or exudates Neck: Soft, supple, symmetric, trachea midline, no crepitus, no mass visualized or palpated Cardiovascular: Regular rate and rhythm, no murmur/rubs/gallops, BUE and BLE without edema, no calf tenderness bilaterally Respiratory: Lungs CTA B, breathing nonlabored, speaking in full sentences, on room air. No use of accessory muscles. Gastrointestinal: Soft, non-tender, non-distended, +normoactive bowel sounds. Skin: Warm and dry throughout, no rashes Lymphatic: no cervical, supraclavicular, infraclavicular lymphadenopathy noted Neurological: Alert and oriented x 3, no focal neurological deficit noted Psychiatric: No agitation, appropriate affect Progress Note: A&P Assessment and plan (1) Hiatal hernia: Status: Acute Assessment and Plan: 70 year old female with known giant hiatal hernia who presented with complaints of shortness of breath and nausea. No events overnight despite inability to place NGT. Asymptomatic currently. * Will trial patient on clear liquid diet today. No carbonation or straws. * If tolerates this will likely advance to fulls tomorrow and plan for discharge on fulls for another couple days. * No s/sx strangulation at this time. * No indication for urgent surgical intervention, however patient would likely benefit from elective hernia repair as outpatient. * IVF d/c'd. * Monitor for any s/sx obstruction with clears trial. Fall Risk Details Current Medications: Current Medications Generic Name Dose Route Start Last Admin Trade Name Freq PRN Reason Stop Dose Admin Famotidine 20 mg 02/28/21 13:40 Famotidine/Pf 20 Mg/2 Ml Vial IVPUSH DAILY [facility] Heparin Sodium (Porcine) 5,000 unit 02/27/21 18:00 02/28/21 06:34 Heparin Sodium,Porcine 5,000 Unit/Ml Vial SUBCUT 5,000 unit Q12H [facility]AYLA Administration Sodium Chloride 1,000 mls @ 100 mls/hr 02/27/21 16:09 02/28/21 12:57 Ns IVCONT Not Given .Q10H [facility] Insulin Human Lispro 0 unit 02/27/21 17:00 02/28/21 11:26 Insulin Lispro 100 Unit/Ml 3 Ml Vial SUBCUT Not Given Q6H [facility] Protocol Levothyroxine Sodium 112 mcg 02/28/21 06:00 Levothyroxine Sodium 112 Mcg Tablet PO DAILY@0600 [facility] Levothyroxine Sodium 25 mcg 02/28/21 06:00 Levothyroxine Sodium 25 Mcg Tablet PO DAILY@0600 [facility] Levothyroxine Sodium 75 mcg 02/28/21 10:00 02/28/21 11:25 Levothyroxine Sodium 100 Mcg Vial IVPUSH 75 mcg DAILY@0600 [facility] Administration Metoprolol Tartrate 2.5 mg 02/28/21 14:00 Metoprolol Tartrate 5 Mg/5 Ml Vial IVPUSH Q6H [facility] Ondansetron HCl 4 mg 02/27/21 17:19 Ondansetron Hcl 4 Mg/2 Ml Vial IVPUSH Q8H PRN Nausea and Vomiting Pharmacy Consult 1 each 02/27/21 15:49 Consult Rx Perform Med Rec MISCELLANE ONCE PRN Consult order Sodium Chloride 3 ml 02/27/21 17:19 02/28/21 10:01 0.9 % Sodium Chloride Flush 3 Ml Syringe IVFLUSH Not Given QSHIFT [facility] Time Spent With Patient Time: Total time spent is greater than 50% in coordination of care (as documented) at patient's floor/unit and/or counseling patient: Time with patient: 15 - 24 minutes
[2021-02-28] MEDS: Famotidine/PF 20 MG/2 ML VIAL IVPUSH (14:22)
[2021-02-28] MEDS: Metoprolol Tartrate 5 MG/5 ML VIAL 2.5 MG IVPUSH ×2 (14:24→20:58)
--- NOTE | 2021-02-28 15:38 | MHC.CM.PN ---
CM MET WITH PT WHO REPORTS SHE LIVES AT HOME WITH HER ADULT SON. PT REPORTS SHE IS INDEPENDENT WITH CARE AND USES A CANE FOR MOBILITY. PT DOES NOT HAVE A HCP BUT IS INTERESTED IN COMPLETING ONE DURING HER ADMISSION. SHE REPORTS SHE WILL NAME HER DAUGHTER, KALIN PALACIOS ([phone]) HER AGENT. PT CONFIRMS HER PCP IS STILL ANIL HERNANDEZ. IMM REVIEWED, PT INDICATES UNDERSTANDING CURRENT DC PLAN IS HOME WITH NO SERVICES FAMILY TO TRANSPORT
[2021-02-28 16:33] LABS: Glucose, Whole Blood 110 mg/dL (60-115)
[2021-02-28] MEDS: 0.9 % Sodium Chloride Flush 3 ML SYRINGE IVFLUSH (16:37)
[2021-02-28] MEDS: Acetaminophen 325 MG TABLET 650 MG PO (16:59)
[2021-03-01] VITALS (7 sets, daily range): BP systolic 117–141; BP diastolic 57–63; PULSE 60–71; RESP 18–20; TEMP 36.4–36.6; O2SAT 91–94
[2021-03-01 00:09] LABS: Glucose, Whole Blood 138 mg/dL (60-115)
[2021-03-01] MEDS: 0.9 % Sodium Chloride Flush 3 ML SYRINGE IVFLUSH ×2 (00:15→08:41)
[2021-03-01] MEDS: Metoprolol Tartrate 5 MG/5 ML VIAL 2.5 MG IVPUSH ×2 (01:27→08:43)
[2021-03-01 06:01] LABS: Glucose, Whole Blood 116 mg/dL (60-115)
[2021-03-01] MEDS: Levothyroxine Sodium 100 MCG VIAL 75 MCG IVPUSH (06:03)
[2021-03-01] MEDS: Heparin Sodium,Porcine 5,000 UNIT/ML VIAL 5000 UNIT SUBCUT (06:04)
[2021-03-01 06:54] LABS: Anion Gap 10 (12-20); Blood Urea Nitrogen 8 mg/dL (9-16); Calcium 8.4 mg/dL (8.4-10.2); Carbon Dioxide 32 mmol/L (22-29); Chloride 104 mmol/L (96-108); Estimated Glomerular Filt Rate > 60; Glucose Random 106 mg/dL (60-115); Potassium 3.9 mmol/L (3.3-5.1); Sodium 142 mmol/L (135-145)
[2021-03-01] MEDS: Famotidine/PF 20 MG/2 ML VIAL IVPUSH (08:41)
[2021-03-01 12:30] LABS: Glucose, Whole Blood 132 mg/dL (60-115)
--- NOTE | 2021-03-01 12:49 | HO.PM.IMPN ---
Subjective Subjective Date of Service: 03/01/21 Interval History: Patient resting comfortably in bed offers no acute complaints of chest pain shortness of breath nausea vomiting had an uneventful night, tolerating clears. ROS General no headache, no dizziness ,no fever chills. CVS no chest pain, no palpitation. Respiratory no cough, no sob Gastrointestinal no nausea, no vomiting, no abdominal pain Physical Exam Vital Signs: Vital Signs: Last Vital Signs Temp 97.6 F 03/01/21 08:00 Pulse 60 03/01/21 11:37 Resp 20 03/01/21 11:37 BP 135/58 L 03/01/21 11:37 Pulse Ox 93 03/01/21 11:37 Body Mass Index 37.8 General patient resting comfortably,no acute distress. Neck supple no JVD. CVS regular rate rhythm, Respiratory lungs clear to auscultation, diminished at bases, no respiratory distress. Gastrointestinal abdomen soft, nontender, bowel sounds audible, no guarding , no rigidity. Extremities no edema. Neuro nonfocal , speech clear. Skin no rash Objective Data Current Medications Generic Name Dose Route Start Last Admin Trade Name Freq PRN Reason Stop Dose Admin Acetaminophen 650 mg 02/28/21 16:52 02/28/21 16:59 Acetaminophen 325 Mg Tablet PO 650 mg Q6H PRN Administration Pain, Mild (Pain Scale 1-3) Famotidine 20 mg 02/28/21 13:40 03/01/21 08:41 Famotidine/Pf 20 Mg/2 Ml Vial IVPUSH 20 mg DAILY KAYLA Administration Heparin Sodium (Porcine) 5,000 unit 02/27/21 18:00 03/01/21 06:04 Heparin Sodium,Porcine 5,000 Unit/Ml Vial SUBCUT 5,000 unit Q12H KAYLA Administration Insulin Human Lispro 0 unit 02/27/21 17:00 03/01/21 12:31 Insulin Lispro 100 Unit/Ml 3 Ml Vial SUBCUT Not Given Q6H [facility] Protocol Levothyroxine Sodium 112 mcg 02/28/21 06:00 Levothyroxine Sodium 112 Mcg Tablet PO DAILY@0600 [facility] Levothyroxine Sodium 25 mcg 02/28/21 06:00 Levothyroxine Sodium 25 Mcg Tablet PO DAILY@0600 [facility] Levothyroxine Sodium 75 mcg 02/28/21 10:00 03/01/21 06:03 Levothyroxine Sodium 100 Mcg Vial IVPUSH 75 mcg DAILY@0600 KAYLA Administration Metoprolol Tartrate 2.5 mg 02/28/21 14:00 03/01/21 08:43 Metoprolol Tartrate 5 Mg/5 Ml Vial IVPUSH 2.5 mg Q6H KAYLA Administration Ondansetron HCl 4 mg 02/27/21 17:19 Ondansetron Hcl 4 Mg/2 Ml Vial IVPUSH Q8H PRN Nausea and Vomiting Pharmacy Consult 1 each 02/27/21 15:49 Consult Rx Perform Med Rec MISCELLANE ONCE PRN Consult order Sodium Chloride 3 ml 02/27/21 17:19 03/01/21 08:41 0.9 % Sodium Chloride Flush 3 Ml Syringe IVFLUSH 3 ml QSHIFT KAYLA Administration Labs CBC & Chem 7: 02/28/21 05:44 03/01/21 05:59 Assessment and Plan (1) Nausea: Status: Acute (2) Hiatal hernia: Status: Acute (3) Essential hypertension: Status: Acute (4) Type 2 diabetes mellitus with unspecified complications: Status: Acute (5) Obesity (BMI 30-39.9): Status: Acute (6) Hypothyroidism: Status: Acute (7) 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: Status: Acute Assessment and Plan: 1. nausea/Large hiatal hernia with intrathoracic stomach, patient asymptomatic with no acute issues overnight, further bouts of nausea , no vomiting, tolerating clear patient being followed by thoracic surgery they recommended full liquid diet for 3 days followed by mechanical soft for 3 days and outpatient follow-up with for possible surgery Stable electrolytes and renal function, recommend to resume all home medications as before except to discontinue metformin and to reduce dose of Lantus by 50% from Lantus 20 units at bedtime to 10 units at bedtime. 2. Diabetes mellitus, continue diabetic diet hold metformin and resume Lantus 10 units at bedtime 3. History of hypertension. Start lisinopril and metoprolol as before 4. History of hypothyroidism. Resume levothyroxine. 5. History of hyperlipidemia. Resume statins. 6. History of question coronary artery disease. No chest pain, no shortness of breath resume beta-shannon and aspirin if okay with surgery. 7. Deep vein thrombosis prophylaxis with compression boots. 8. Code status. full code.
--- NOTE | 2021-03-01 13:09 | P.DS_ITS ---
DS: Providers Provider Date of Service: 03/01/21 Date of admission: 02/27/21 16:09 Primary care physician: Unknown Physician Consults: 02/27/21 17:19 Consult to Hospitalist Routine Consulting Provider: Joselyn Hernandez Reason For Exam: medicine management DS: Diagnosis Discharge Diagnosis (1) Nausea: Status: Acute (2) Hiatal hernia: Status: Acute (3) Essential hypertension: Status: Acute (4) Type 2 diabetes mellitus with unspecified complications: Status: Acute (5) Obesity (BMI 30-39.9): Status: Acute (6) Hypothyroidism: Status: Acute (7) 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: Status: Acute DS: Medications Discharge Medications Home Medications: Home Medications Medication Instructions Recorded Confirmed amitriptyline 25 mg PO DAILY 02/27/21 02/27/21 aspirin 81 mg PO DAILY 02/27/21 02/27/21 cholecalciferol (vitamin D3) 25 mcg PO DAILY 02/27/21 02/27/21 exenatide microspheres 2 mg SUBCUT Q7D 02/27/21 02/27/21 gabapentin 600 mg PO TID 02/27/21 02/27/21 levothyroxine 137 mcg PO DAILY 02/27/21 02/27/21 lisinopril 20 mg PO DAILY 02/27/21 02/27/21 metformin 2,000 mg PO DAILY 02/27/21 02/27/21 metoprolol succinate 100 mg PO DAILY 02/27/21 02/27/21 multivitamin 1 tab PO DAILY 02/27/21 02/27/21 simvastatin 40 mg PO BEDTIME 02/27/21 02/27/21 Previous Rx's Medication Instructions Recorded Lantus Solostar U-100 Insulin 10 unit SUBCUT QPM #0 ml 03/01/21 DS: Summary Hospital Course Hospital Course: Per H&P: Miriam Nogueira is a 70 year old female with a past medical history of diabetes for which she takes metforminLantus and Bydureon, hypertension, hyperlipidemia, hypothyroidism, CHF cardiovascular disease with recent normal echocardiogram, neuropathy as well as a 50 year plus history of hiatal hernia. Patient presented today to the emergency department with complaints of nausea, shortness of breath and some fullness in her chest. A chest CT was performed which shows a very large hiatal hernia. The stomach is dilated and filled with air and small amount of fluid. There does not appear to be evidence of gastric volvulus. No gastric wall thickening or air in the wall of the stomach or surrounding fluid is seen. Patient informs me that she has been dealing with symptoms of her hiatal hernia for many years. She states the last time she presented to the emergency department was 2 years ago at [facility] at which point in time she was discharged with recommendations to seek out a thoracic surgeon for possible surgical intervention. She states she never bothered following through because she only become symptomatic when she ?excessively eats which happens probably once a year?. Patient informs me that she had many large meals yesterday and woke up with her shortness of breath and chest fullness. Patient states she has not eaten anything today and that her shortness of breath has improved since coming to the hospital. While in the ED she is currently hemodynamically stable, hematocrit 48 with mild leukocytosis of 10.8 BP 120/58, heart rate 81, oxygen saturations 97% on room air and does not appear to be in any distress. She denies any chest pain, vomiting, fever, chills, abdominal pain, difficulty urinating. She does admit to some nausea which has improved with Zofran. Patient was made NPO with plans for placement of NG tube set to wall suction for decompression of stomach. The patient was admitted to the hospital under the Thoracic Surgery service for ongoing monitoring and management of her giant hiatal hernia. She was kept NPO and NGT was attempted without success by several RNs and providers. Ultimately, the patient's symptoms resolved without need for invasive procedure or surgery. She was trialed on clear liquid diet which she tolerated well without issue. However, the patient was educated that given the size of her hernia and the likelihood of it causing significant problems in the future we recommend she followup with us an outpatient to further discuss surgical correction of this issue. For now, given that the patient has no symptoms and is tolerating a liquid diet we will discharge her home with close outpatient followup. During her admission there were no significant issues and she remained hemodynamically stable. She has been voiding without difficulty and ambulating independently. Given that her diet with be modified until she is at least seen by Dr. Lopez as an outpatient we will decrease her Lantus dose to 10units daily and hold her metformin for now. Status at Discharge Functional status at discharge: independent ambulation Overall status at discharge: patient is back to baseline Time Spent with Patient Time attestation: Total time spent providing and/or coordinating discharge services: Discharge coordination time: Greater than 30 minutes Physical Exam Vital Signs: Vital Signs: Last Vital Signs Temp 97.6 F 03/01/21 08:00 Pulse 60 03/01/21 11:37 Resp 20 03/01/21 11:37 BP 135/58 L 03/01/21 11:37 Pulse Ox 93 03/01/21 11:37 Body Mass Index 37.8 General: No acute distress, resting comfortably in bed, * developed Head: Normocephalic, atraumatic, symmetric Eyes: Sclera anicteric, eyelids without edema or erythema, +EOMS intact ENT: Oral mucosa and tongue are moist without lesions or exudates Neck: Soft, supple, *symmetric, trachea midline, no crepitus, no mass visualized or palpated Cardiovascular: Regular rate and rhythm, no murmur/rubs/gallops, BUE and BLE without edema, no calf tenderness bilaterally Respiratory: Lungs CTA B, breathing nonlabored, speaking in full sentences, on room air. No use of accessory muscles. Gastrointestinal: Soft, non-tender, non-distended, +normoactive bowel sounds. Skin: Warm and dry throughout, no rashes Lymphatic: no cervical, supraclavicular, infraclavicular, or axillary lymphadenopathy noted Neurological: Alert and oriented x 3, no focal neurological deficit noted Psychiatric: no agitation, appropriate affect DS: Data Data Completed and Pending Labs on day of discharge: Laboratory Results - last 24 hr 02/28/21 03/01/21 03/01/21 16:21 00:02 05:56 Sodium Potassium Chloride Carbon Dioxide Anion Gap BUN Creatinine Estim Creat Clear Calc Estimated GFR POC Glucose 110 138 H 116 H Random Glucose Calcium 03/01/21 03/01/21 05:59 12:26 Sodium 142 Potassium 3.9 Chloride 104 Carbon Dioxide 32 H Anion Gap 10 L BUN 8 L Creatinine 0.80 Estim Creat Clear Calc 73.0 Estimated GFR > 60 POC Glucose 132 H Random Glucose 106 Calcium 8.4 EXAMINATION: CT CHEST WITH CONTRAST 02/27/2021 CLINICAL INFORMATION: Abnormal chest x-ray COMPARISON: Previous chest x-rays most recent from earlier the same day and chest MRI December 2008 TECHNIQUE: Multidetector volumetric CT imaging of the chest was obtained after the administration of 60 mL of Omnipaque 350 intravenous contrast without immediate adverse reactions. Axial MIP volume rendering provided. Sagittal and coronal reformatted images were obtained. This CT examination was performed using dose optimization techniques as appropriate, variously including the following: *Automated exposure control *Adjustment of mA and/or kV according to patient size (this includes techniques or standardized protocols for targeted exams where dose is matched to indication/reason for exam; i.e. extremities or head) *Use of iterative reconstruction technique DLP: 444 mGy-cm FINDINGS: LUNGS: There is a subsegmental atelectasis in both lower lobes adjacent to the stomach. MEDIASTINUM: There is a large esophageal hernia or intrathoracic stomach. The stomach is dilated and filled with air and small amount of fluid. It does not appear to be evidence of a gastric volvulus. No gastric wall thickening or air in the wall of the stomach or surrounding fluid is seen. The heart does not appear enlarged. There is mild coronary artery calcification. There is no pericardial effusion. The thoracic aorta is normal in caliber. There are small mediastinal lymph nodes. PLEURA: There is no pleural effusion. No pleural mass or thickening. AXILLA: There are small bilateral axillary lymph nodes. UPPER ABDOMEN: There is diverticulosis of the colon. OSSEOUS STRUCTURES: There are degenerative changes of the spine. CT/CT chest w con IMPRESSION: Large esophageal hernia or intrathoracic stomach. The stomach is dilated and filled with air and small amount of fluid. There is no evidence of a gastric volvulus. Discharge Plan Discharge Anticipated Discharge Date/Time: 03/01/21 12:56 Patient Disposition: Home, Self-Care Referrals: Nancy Lopez MD [Physician] - 1 Week Physician,Unknown [Primary Care Provider] - 2 Weeks Discharge Medications: Continued multivitamin Tablet 1 tab PO DAILY RF: 0 levothyroxine 137 mcg Tablet 137 mcg PO DAILY RF: 0 gabapentin 600 mg Tablet 600 mg PO TID RF: 0 lisinopril 20 mg Tablet 20 mg PO DAILY RF: 0 metoprolol succinate 100 mg Tablet Extended Release 24 Hr 100 mg PO DAILY RF: 0 aspirin 81 mg Tablet,Delayed Release (Dr/Ec) 81 mg PO DAILY RF: 0 simvastatin 40 mg Tablet 40 mg PO BEDTIME RF: 0 amitriptyline 25 mg Tablet 25 mg PO DAILY RF: 0 cholecalciferol (vitamin D3) 25 mcg (1,000 unit) Capsule 25 mcg PO DAILY RF: 0 exenatide microspheres 2 mg/0.85 mL Auto-Injector 2 mg SUBCUT Q7D RF: 0 Changed Lantus Solostar U-100 Insulin 100 unit/mL (3 mL) Insulin Pen 10 unit SUBCUT QPM Qty: 0 RF: 0 Held metformin 500 mg Tablet Extended Release 24 Hr 2,000 mg PO DAILY RF: 0 Hold Instructions: Resume on 03/20/21. hold metformin until seen in followup with Dr. Lopez, thoracic surgeon, due to possible need for surgical procedure as well as being on a modified diet Discharge Orders: Discharge Order (Routine); Ordered 03/01/21 Ordered By: lAejandra Kat Diet: other Activity on Discharge: As tolerated Stand Alone Forms: Patient Portal Discharge page Print Language: Wolof Activity Restrictions/Additional Instructions: You were admitted to the hospital due to complications from a giant hiatal hernia (where your stomach is now in the chest cavity instead of in the abdominal cavity). DIET: * You will be on a FULL LIQUID diet for the next 3 days, then you may advance to a mechanical soft diet. DO NOT advance your diet further until you are seen by Dr. Lopez, Thoracic Surgeon. * Eat frequent small meals throughout the day. Avoid large meals. * No straws or carbonated beverages. * You should avoid laying flat for 2-3 hours after eating. ACTIVITY: * You should be out of bed and walking at least 3x per day. MEDICATION: * You may resume your home medications and take pills whole or crushed (your choosing). * Because you are not going to be on a normal diet you should only take 10units of Lantus each night and do not take your metformin to avoid dangerously low blood sugar levels. * Make sure you are checking your blood sugar levels 3-4 times a day. Write down your numbers with the date/time to keep track. WHAT TO WATCH FOR: * Monitor for any severe abdominal or chest pain, significant nausea or vomiting, fevers, chills. SMOKING CESSATION: * Smoking is hazardous to your health and those around you. * Continuing to smoke or use tobacco products can increase your chance of postoperative complications, including delayed wound healing, wound infection, stroke, and heart attack. * If you currently use tobacco products (cigarettes, dip, cigars, electronic/vapor cigarettes, etc) talk with your provider about options that are available to help you quit. * You can call the [facility] Smokers' Helpline at 9-880-QUIT NOW ( ). For Citizen Of [place], call 3-511-8-MARIN ( ). You can also visit the website at [email or web address]. FOLLOWUP APPOINTMENTS: * You will be contacted by Dr. Lopez's office to set up a followup appointment for either this coming week or the next week to further discuss your condition and potential surgery. [facility], 1st floor * Call the thoracic surgery office @ if you have any questions or concerns. Care Plan Goals: Modified diet until followup with Thoracic Surgery Health Concerns: Giant hiatal hernia Plan of Treatment: Modified diet until followup with Thoracic Surgery as outpatient to further discuss treatment/surgical options Patient Instructions: Hiatal Hernia (ED), Full Liquid Diet (DC), GI (Gastroi ntestinal) Soft Diet (DC)
--- NOTE | 2021-03-01 13:32 | MHC.CM.PN ---
PT BEING DISCHARGED HOME WITH NO SERVICES. PT WILL SELF ARRANGE TRANSPORT.
== END 2021-03-01 14:15 | disposition home or self-care (01) | DRG 392 ==
LOC: HO.ED 13:08 → HO.EDOVER 16:19 → HO.IMC 19:32
PROVIDERS: Hospitalist; Physician Assistant; Admitting Provider Surgery; Emergency Provider Emergency Medicine; Visit Provider Surgery
DX: K44.9 Diaphragmatic hernia without obstruction or gangrene (principal); E03.9 Hypothyroidism, unspecified; I25.10 Atherosclerotic heart disease of native coronary artery without angina pectoris; E78.5 Hyperlipidemia, unspecified; E11.42 Type 2 diabetes mellitus with diabetic polyneuropathy; Z20.822 Contact with and (suspected) exposure to COVID-19; Z87.891 Personal history of nicotine dependence; Z79.4 Long term (current) use of insulin; Z79.82 Long term (current) use of aspirin; Z79.890 Hormone replacement therapy; Z79.899 Other long term (current) drug therapy
CPT/HCPCS: 0241U; 36415; 71045; 71260; 80048; 80053; 82947; 83880; 84484; 85025; 85379; 85610; 93005; 96374; 96375; 99284; 99285; J1200; J2060; J2405; J2765; Q9967

== ENCOUNTER → 2021-03-06 10:40 | Outpatient (BNVA) | payer MEDICARE, OTHER, SELFPAY | PROVIDERS: PCP Internal Medicine; Visit Provider Surgery | DX: K44.0 Diaphragmatic hernia with obstruction, without gangrene (principal); Z79.899 Other long term (current) drug therapy; Z79.82 Long term (current) use of aspirin; Z79.84 Long term (current) use of oral hypoglycemic drugs | CPT/HCPCS: 99212 ==

== ENCOUNTER 2021-03-31 13:16 | Outpatient (REF) | payer MEDICARE, OTHER, SELFPAY ==
[2021-03-31 13:45] LABS: MANUAL DIFF FLAG NO
[2021-03-31 13:54] LABS: Basophils Absolute Auto 0.1 X10*3/uL (0.0-0.2); Basophils Percent Auto 0.8 % (0-2); Eosinophils Absolute Auto 0.1 X10*3/uL (0.0-0.4); Eosinophils Percent Auto 2.1 % (0-4); Hematocrit 45.5 % (37-47); Hemoglobin 14.6 g/dl (12.0-16.0); Imm Gran Abs Auto 0.02 X10*3/uL (0.00-0.03); Imm Gran Pct Auto 0.3 % (0.0-0.4); Lymphocytes Percent Auto 29.5 % (20-40); Mean Corpuscular HGB Conc 32.1 g/dl (31.0-35.0); Mean Corpuscular Hemoglobin 29.1 pg (27.0-33.0); Mean Corpuscular Volume 90.8 fL (80-98); Mean Platelet Volume 10.1 fL (9.4-12.3); Monocytes Absolute Auto 0.5 X10*3/uL (0.1-1.2); Monocytes Percent Auto 8.2 % (2-11); Neutrophils Absolute Auto 3.9 X10*3/uL (2.0-8.3); Neutrophils Percent Auto 59.1 % (45-73); Platelet Count 244 X10*3/uL (160-400); Red Blood Count 5.01 X10*6/uL (4.20-5.50); Red Cell Distribution Width 12.1 % (11.0-16.0); White Blood Count 6.6 X10*3/uL (4.8-10.8)
[2021-03-31 14:06] LABS: Estimated Average Glucose 128 mg/dL; Hemoglobin A1c % 6.1 %
[2021-03-31 14:24] LABS: Anion Gap 18 (12-20); Blood Urea Nitrogen 7 mg/dL (9-16); Calcium 9.5 mg/dL (8.4-10.2); Carbon Dioxide 23 mmol/L (22-29); Chloride 105 mmol/L (96-108); Estimated Glomerular Filt Rate > 60; Glucose Random 99 mg/dL (60-115); Potassium 4.4 mmol/L (3.3-5.1); Sodium 142 mmol/L (135-145)
== END 2021-03-31 13:17 | disposition home or self-care (01) ==
LOC: HO.LAB 13:16
PROVIDERS: PCP Internal Medicine; Visit Provider Internal Medicine
DX: Z00.00 Encounter for general adult medical examination without abnormal findings (principal); R51.9 Headache, unspecified; E11.9 Type 2 diabetes mellitus without complications
CPT/HCPCS: 36415; 80048; 83036; 85025

== ENCOUNTER → 2021-05-13 10:21 | Outpatient (BNVA) | payer MEDICARE, OTHER, SELFPAY | PROVIDERS: PCP Internal Medicine; Visit Provider Internal Medicine Endocrinology, Diabetes & Metabolism | DX: E11.65 Type 2 diabetes mellitus with hyperglycemia (principal); E11.42 Type 2 diabetes mellitus with diabetic polyneuropathy; E03.9 Hypothyroidism, unspecified; E78.5 Hyperlipidemia, unspecified; E66.9 Obesity, unspecified; I10 Essential (primary) hypertension; Z79.4 Long term (current) use of insulin | CPT/HCPCS: 82947; 99212 ==

== ENCOUNTER → 2021-08-13 14:00 | Outpatient (BNVA) | payer MEDICARE, OTHER, SELFPAY | PROVIDERS: PCP Internal Medicine; Visit Provider Internal Medicine | DX: I25.10 Atherosclerotic heart disease of native coronary artery without angina pectoris (principal); I44.0 Atrioventricular block, first degree; I10 Essential (primary) hypertension; E78.5 Hyperlipidemia, unspecified; E11.8 Type 2 diabetes mellitus with unspecified complications | CPT/HCPCS: Q3014 ==

== ENCOUNTER 2021-08-24 10:33 | Outpatient (REF) | payer MEDICARE, OTHER, SELFPAY ==
[2021-08-24 12:50] LABS: Cholesterol 118 mg/dL; HDL Cholesterol 43 mg/dL; LDL Cholesterol Calculated 52 mg/dl; Triglycerides 117 mg/dL
[2021-08-24 12:55] LABS: Thyroid Stimulating Hormone 0.03 uIU/mL (0.32-4.0)
== END 2021-08-24 10:34 | disposition home or self-care (01) ==
LOC: HO.LAB 10:33
PROVIDERS: PCP Internal Medicine; Visit Provider Internal Medicine Endocrinology, Diabetes & Metabolism
DX: E11.9 Type 2 diabetes mellitus without complications (principal); E03.9 Hypothyroidism, unspecified
CPT/HCPCS: 36415; 80061; 84439; 84443

== ENCOUNTER → 2021-08-25 13:02 | Outpatient (BNVA) | payer MEDICARE, OTHER, SELFPAY | PROVIDERS: PCP Internal Medicine; Visit Provider Nurse Practitioner Gerontology | DX: E11.65 Type 2 diabetes mellitus with hyperglycemia (principal); E11.42 Type 2 diabetes mellitus with diabetic polyneuropathy; E03.9 Hypothyroidism, unspecified; E78.5 Hyperlipidemia, unspecified; E66.9 Obesity, unspecified; I10 Essential (primary) hypertension; Z79.4 Long term (current) use of insulin | CPT/HCPCS: 82947; 99212 ==

== ENCOUNTER 2021-08-26 10:07 | Outpatient (REF) | payer MEDICARE, OTHER, SELFPAY ==
--- NOTE | ~2021-08-26 | MM_ITS ---
EXAMINATION: BONE DENSITOMETRY CLINICAL INDICATION: Asymptomatic menopausal state. COMPARISON: Baseline BD dated 03/14/2018. TECHNIQUE: Using a [employer] DXA System (software version: 13.1) manufactured by [employer], dual-energy x-ray absorptiometry was performed of the spine and left hip. The images are of good technical quality. Summary results are attached. FINDINGS: AP SPINE L1-L4: Current: BMD 1.302 g/cm2, Z-score 2.0, T-score 1.0, normal, 2.4% increase from baseline (<5% change is not significant). Baseline: BMD 1.271 g/cm2. LEFT FEMUR, NECK: Current: BMD 1.001 g/cm2, Z-score 1.1, T-score -0.3, normal. Baseline: BMD 1.031 g/cm2. LEFT FEMUR, TOTAL: Current: BMD 1.067 g/cm2, Z-score 1.5, T-score 0.5, normal, 3.0% decrease from baseline (<5% change is not significant). Baseline: BMD 1.100 g/cm2. IDENTIFIED RISK FACTORS: Height loss, low calcium intake, menopause. HISTORY OF FRACTURE: None listed. MEDICATIONS: Calcium supplements or multivitamin, vitamin D. MM/XR DEXA axial skeleton IMPRESSION: 1. DIAGNOSIS: Normal bone density based on the lowest T-score value of -0.3 in the femoral neck applying World Health Organization criteria. 2. 10-YEAR FRACTURE RISK PREDICTION, FRAX: Major osteoporotic fracture (clinical spine, forearm, hip or shoulder) 7.5%. Hip fracture 0.6%. 3. Treatment Recommendations: NOF guidelines recommend consideration for treatment in postmenopausal women and men age 50 and older presenting with the following: -A hip or vertebral (clinical or morphometric) fracture. -T-score less than or equal to -2.5 at the femoral neck or spine after appropriate evaluation to exclude secondary causes. -Low bone mass at the hip or spine and a 10-year fracture probability by FRAX of greater than or equal to 3% for hip fracture or greater than or equal to 20% for major osteoporotic fracture based on the [place] adapted WHO algorithm. 4. Other Recommendations: All treatment decisions require clinical judgment and consideration of individual patient factors, including patient preferences, comorbidities, previous drug use, risk factors not captured in the FRAX model (e.g. frailty, falls, vitamin D deficiency, increased bone turnover, interval significant decline in bone density) and possible under or overestimation of fracture risk by FRAX. FUTURE SCAN RECOMMENDATION: People with diagnosed cases of osteoporosis or at high risk for fracture should have regular bone mineral density tests. For patients eligible for Medicare, routine testing is allowed once every 2 years. The testing frequency can be increased to one year for patients who have rapidly progressing disease, those who are receiving or discontinuing medical therapy to restore bone mass, or have additional risk factors.
--- NOTE | ~2021-08-26 | MM_ITS ---
EXAMINATION: MM SCREENING DIGITAL BREAST TOMOSYNTHESIS, BILATERAL CLINICAL INFORMATION: Screening. Asymptomatic. The lifetime risk of breast cancer based on the Tyrer-Cuzick Model is 3%. COMPARISON: Mammography: 07/17/2018, 04/18/2017, 04/14/2016 TECHNIQUE: Digital breast tomosynthesis is performed in both the craniocaudal and mediolateral oblique views along with computer-aided detection (CAD). Synthesized 2D images are generated from the tomosynthesis. Additional left MLO view is provided. FINDINGS: There are scattered areas of fibroglandular density (ACR BI-RADS breast composition Category b). There are no significant masses, abnormal calcifications, or other abnormalities. Parenchymal pattern is similar to prior exams. No significant changes. MM/MM tomosynthesis screening BI IMPRESSION: No mammographic evidence of malignancy. ASSESSMENT: BI-RADS 1: Negative RECOMMENDATION: Routine annual mammography screening. This patient's information was entered into a reminder system with a target due date for their next mammogram.
== END 2021-08-26 10:08 | disposition home or self-care (01) ==
LOC: HO.MAMMO 10:07
PROVIDERS: Visit Provider Nurse Practitioner Family
DX: Z13.820 Encounter for screening for osteoporosis (principal); Z78.0 Asymptomatic menopausal state; Z12.31 Encounter for screening mammogram for malignant neoplasm of breast
CPT/HCPCS: 77063; 77067; 77080

== ENCOUNTER → 2021-09-09 08:38 | Outpatient (BNVA) | payer MEDICARE, OTHER, SELFPAY | PROVIDERS: PCP Internal Medicine; Visit Provider Nurse Practitioner Gerontology | DX: E11.65 Type 2 diabetes mellitus with hyperglycemia (principal); E11.649 Type 2 diabetes mellitus with hypoglycemia without coma; E11.42 Type 2 diabetes mellitus with diabetic polyneuropathy; E03.9 Hypothyroidism, unspecified; E78.5 Hyperlipidemia, unspecified; E66.9 Obesity, unspecified; I10 Essential (primary) hypertension | CPT/HCPCS: 82947; 99212 ==

== ENCOUNTER 2021-10-07 10:21 | Outpatient (REF) | payer MEDICARE, OTHER, SELFPAY ==
[2021-10-07 12:04] LABS: Estimated Average Glucose 123 mg/dL; Hemoglobin A1c % 5.9 %
[2021-10-07 12:31] LABS: Alanine Aminotransferase 27 U/L (0-31); Albumin Level 3.7 g/dL (3.5-5.0); Alkaline Phosphatase 50 U/L (39-117); Anion Gap 14 (12-20); Aspartate Amino Transferase 32 U/L (5-31); Bilirubin Total 0.5 mg/dL (0.0-1.0); Blood Urea Nitrogen 8 mg/dL (9-16); Calcium 9.4 mg/dL (8.4-10.2); Carbon Dioxide 30 mmol/L (22-29); Chloride 101 mmol/L (96-108); Estimated Glomerular Filt Rate > 60; Glucose Fasting 123 mg/dL (60-99); Potassium 4.4 mmol/L (3.3-5.1); Sodium 141 mmol/L (135-145); Total Protein 6.7 g/dL (6.5-8.0)
[2021-10-07 12:36] LABS: Creatinine Urine 91.53 mg/dL
[2021-10-07 12:43] LABS: Microalbum/Creatinine Ratio Ur 13.1 ug/mg cr
[2021-10-07 12:43] LABS: Free T4 (Free Thyroxine) 0.99 ng/dL (0.71-1.85); Thyroid Stimulating Hormone 1.03 uIU/mL (0.32-4.0)
== END 2021-10-07 10:22 | disposition home or self-care (01) ==
LOC: HO.LAB 10:21
PROVIDERS: Internal Medicine Endocrinology, Diabetes & Metabolism; Visit Provider Nurse Practitioner Gerontology
DX: E11.42 Type 2 diabetes mellitus with diabetic polyneuropathy (principal); E11.65 Type 2 diabetes mellitus with hyperglycemia; E03.9 Hypothyroidism, unspecified
CPT/HCPCS: 36415; 80053; 82043; 83036; 84439; 84443

== ENCOUNTER → 2021-12-29 13:56 | Outpatient (BNVA) | payer MEDICARE, OTHER, SELFPAY | PROVIDERS: PCP Internal Medicine; Visit Provider Nurse Practitioner Gerontology | DX: E11.65 Type 2 diabetes mellitus with hyperglycemia (principal); E11.649 Type 2 diabetes mellitus with hypoglycemia without coma; E11.42 Type 2 diabetes mellitus with diabetic polyneuropathy; I10 Essential (primary) hypertension; E03.9 Hypothyroidism, unspecified; E78.5 Hyperlipidemia, unspecified; E66.9 Obesity, unspecified; Z68.28 Body mass index [BMI] 28.0-28.9, adult | CPT/HCPCS: 82947; 83036; 99212 ==

== ENCOUNTER 2022-08-06 10:16 | Outpatient (REF) | payer MEDICARE, OTHER, SELFPAY ==
[2022-08-06 10:30] LABS: MANUAL DIFF FLAG NO
[2022-08-06 11:47] LABS: Basophils Absolute Auto 0.1 X10*3/uL (0.0-0.2); Basophils Percent Auto 0.8 % (0-2); Eosinophils Absolute Auto 0.2 X10*3/uL (0.0-0.4); Eosinophils Percent Auto 2.9 % (0-4); Hematocrit 41.3 % (37.0-47.0); Hemoglobin 13.7 g/dl (12.0-16.0); Imm Gran Abs Auto 0.02 X10*3/uL (0.00-0.03); Imm Gran Pct Auto 0.3 % (0.0-0.4); Lymphocytes Absolute Auto 2.5 X10*3/uL (1.2-4.9); Lymphocytes Percent Auto 37.2 % (20-40); Mean Corpuscular HGB Conc 33.2 g/dl (31.0-35.0); Mean Corpuscular Hemoglobin 28.8 pg (27.0-33.0); Mean Corpuscular Volume 86.8 fL (80.0-98.0); Mean Platelet Volume 10.7 fL (9.4-12.3); Monocytes Absolute Auto 0.5 X10*3/uL (0.1-1.2); Monocytes Percent Auto 7.1 % (2-11); Neutrophils Absolute Auto 3.4 x10*3/uL (2.0-8.3); Neutrophils Percent Auto 51.7 % (45-73); Platelet Count 230 X10*3/uL (160-400); Red Blood Count 4.76 X10*6/uL (4.20-5.50); Red Cell Distribution Width 12.2 % (11.0-16.0); White Blood Count 6.6 X10*3/uL (4.8-10.8)
[2022-08-06 12:18] LABS: Alanine Aminotransferase 23 U/L (0-31); Albumin Level 3.8 g/dL (3.5-5.0); Alkaline Phosphatase 58 U/L (39-117); Anion Gap 16 (12-20); Aspartate Amino Transferase 28 U/L (5-31); Bilirubin Total 0.7 mg/dL (0.0-1.0); Blood Urea Nitrogen 8 mg/dL (9-16); Calcium 9.2 mg/dL (8.4-10.2); Carbon Dioxide 27 mmol/L (22-29); Chloride 104 mmol/L (96-108); Cholesterol 152 mg/dL; Estimated Glomerular Filt Rate > 60; Glucose Fasting 122 mg/dL (60-99); HDL Cholesterol 45 mg/dL; LDL Cholesterol Calculated 72 mg/dl; Potassium 4.1 mmol/L (3.3-5.1); Sodium 143 mmol/L (135-145); Total Protein 6.9 g/dL (6.5-8.0); Triglycerides 178 mg/dL
[2022-08-06 12:20] LABS: Thyroid Stimulating Hormone 1.27 uIU/mL (0.32-4.0)
[2022-08-06 13:16] LABS: Estimated Average Glucose 140 mg/dL; Hemoglobin A1C 168.8183 umol/L; Hemoglobin A1c % 6.5 %
== END 2022-08-06 10:17 | disposition home or self-care (01) ==
LOC: HO.LAB 10:16
PROVIDERS: PCP Internal Medicine; Visit Provider Internal Medicine
DX: Z00.00 Encounter for general adult medical examination without abnormal findings (principal); Z13.0 Encounter for screening for diseases of the blood and blood-forming organs and certain disorders involving the immune mechanism; E11.9 Type 2 diabetes mellitus without complications
CPT/HCPCS: 36415; 80053; 80061; 83036; 84443; 85025

== ENCOUNTER → 2022-08-17 13:23 | Outpatient (BNVA) | payer MEDICARE, OTHER, SELFPAY | PROVIDERS: PCP Internal Medicine; Referring Provider Internal Medicine; Visit Provider Internal Medicine | DX: I25.10 Atherosclerotic heart disease of native coronary artery without angina pectoris (principal); I10 Essential (primary) hypertension; E11.8 Type 2 diabetes mellitus with unspecified complications; E78.5 Hyperlipidemia, unspecified; I44.0 Atrioventricular block, first degree; Z79.82 Long term (current) use of aspirin; Z79.84 Long term (current) use of oral hypoglycemic drugs; Z79.899 Other long term (current) drug therapy | CPT/HCPCS: 93005; 99212 ==

== ENCOUNTER 2022-09-04 10:21 | Outpatient (REF) | payer MEDICARE, OTHER, SELFPAY ==
--- NOTE | ~2022-09-04 | MM_ITS ---
EXAMINATION: MM SCREENING DIGITAL BREAST TOMOSYNTHESIS, BILATERAL CLINICAL INFORMATION: Screening. Asymptomatic. The lifetime risk of breast cancer based on the Tyrer-Cuzick Model is 3%. COMPARISON: Mammography: 08/26/2021, 07/17/2018, 04/18/2017 TECHNIQUE: Digital breast tomosynthesis is performed in both the craniocaudal and mediolateral oblique views along with computer-aided detection (CAD). Synthesized 2D images are generated from the tomosynthesis. FINDINGS: There are scattered areas of fibroglandular density (ACR BI-RADS breast composition Category b). There are no significant masses, abnormal calcifications, or other abnormalities. Parenchymal pattern is similar to prior studies. There is no developing density or architectural abnormality. The axilla and skin contours are unremarkable. No significant changes. MM/MM tomosynthesis screening BI IMPRESSION: No mammographic evidence of malignancy. ASSESSMENT: BI-RADS 1: Negative RECOMMENDATION: Routine annual mammography screening. This patient's information was entered into a reminder system with a target due date for their next mammogram.
== END 2022-09-04 10:22 | disposition home or self-care (01) ==
LOC: HO.MAMMO 10:21
PROVIDERS: Visit Provider Internal Medicine
DX: Z12.31 Encounter for screening mammogram for malignant neoplasm of breast (principal)
CPT/HCPCS: 77063; 77067

== ENCOUNTER 2023-02-07 10:22 | Outpatient (REF) | payer MEDICARE, OTHER, SELFPAY ==
[2023-02-07 11:21] LABS: Estimated Average Glucose 157 mg/dL; Hemoglobin A1c % 7.1 %
[2023-02-07 11:37] LABS: Cholesterol 131 mg/dL; Glucose Fasting 112 mg/dL (60-99); HDL Cholesterol 43 mg/dL; LDL Cholesterol Calculated 63 mg/dl; Triglycerides 125 mg/dL
== END 2023-02-07 10:23 | disposition home or self-care (01) ==
LOC: HO.LAB 10:22
PROVIDERS: PCP Internal Medicine; Visit Provider Internal Medicine
DX: E78.5 Hyperlipidemia, unspecified (principal); E11.65 Type 2 diabetes mellitus with hyperglycemia
CPT/HCPCS: 36415; 80061; 82947; 83036

== ENCOUNTER 2023-04-12 10:03 | Outpatient (REF) | payer MEDICARE, OTHER, SELFPAY ==
--- NOTE | ~2023-04-12 | XR_ITS ---
EXAMINATION: XR WRIST, LEFT CLINICAL INFORMATION: Pain COMPARISON: None available. TECHNIQUE: PA, lateral, and oblique views of the left wrist. FINDINGS: No fracture or dislocation. Arthritis of the first SKILLED NURSING joint with joint space narrowing, osteophyte formation and periarticular soft tissue ossification. Joint spaces are otherwise normal. Soft tissues are otherwise normal. 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
== END 2023-04-12 10:04 | disposition home or self-care (01) ==
LOC: HO.HOSX 10:03
PROVIDERS: PCP Internal Medicine; Visit Provider Physician Assistant
DX: M18.12 Unilateral primary osteoarthritis of first carpometacarpal joint, left hand (principal)
CPT/HCPCS: 73110; 99202

== ENCOUNTER 2023-05-10 10:19 | Outpatient (REF) | payer MEDICARE, OTHER, SELFPAY ==
[2023-05-10 10:56] LABS: Estimated Average Glucose 143 mg/dL; Hemoglobin A1c % 6.6 %
[2023-05-10 11:47] LABS: Cholesterol 111 mg/dL; Glucose Fasting 115 mg/dL (60-99); HDL Cholesterol 40 mg/dL; LDL Cholesterol Calculated 47 mg/dl; Triglycerides 123 mg/dL
[2023-05-10 11:49] LABS: Thyroid Stimulating Hormone 0.31 uIU/mL (0.32-4.0)
== END 2023-05-10 10:20 | disposition home or self-care (01) ==
LOC: HO.LAB 10:19
PROVIDERS: PCP Internal Medicine; Visit Provider Internal Medicine
DX: E78.5 Hyperlipidemia, unspecified (principal); R73.9 Hyperglycemia, unspecified; E03.9 Hypothyroidism, unspecified
CPT/HCPCS: 36415; 80061; 82947; 83036; 84443

== ENCOUNTER 2023-08-12 15:49 | Outpatient (AMB) | payer MEDICARE, OTHER, SELFPAY ==
[2023-08-12 15:51] VITALS: BP 132/80; PULSE 59; O2SAT 98; BMI 32.1
--- NOTE | 2023-08-12 15:51 | A.OFFVIS_ITS ---
Intake Vital Signs 08/12/23 15:51 Height 5 ft 4 in Weight 187 lb BMI 32.1 BP 132/80 Blood Pressure Location Rt brachial Position Sitting Pulse 59 Pulse Source Pulse Oximeter Temp Source Skin Pulse Oximetry (%) 98 Oxygen Delivery Method Room Air Intake Visit Reasons: SAWV Intake Note: Patient is here for an Annual Wellness Visit. 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 Required: No Allergies hydrocodone [From VICODIN] Allergy (Unknown, Verified 08/18/23 13:42) HEADACHE oxycodone [OXYCODONE] Allergy (Unknown, Verified 08/18/23 13:42) HIVES procaine [From NOVOCAIN] Allergy (Unknown, Verified 08/18/23 13:42) FAINTED Medication List - Last Reconciled 08/12/23 by AZALIA Dunlap amitriptyline 25 mg PO DAILY aspirin 81 mg PO DAILY blood sugar diagnostic (Accu-Chek SmartView Test Strips) As directed blood sugar diagnostic (FreeStyle Precision Hilton Strips) As directed blood sugar diagnostic (Accu-Chek Francoise Plus test strips) As directed twice a day cholecalciferol (vitamin D3) 25 mcg PO DAILY exenatide microspheres ER 2 mg (0.85 mL) subcut QWEEK 90 days gabapentin 600 mg PO TID levothyroxine 125 mcg PO DAILY metformin 1,000 mg (2 x 500 mg) PO DAILY metoprolol succinate ER (Toprol XL) 50 mg PO DAILY multivitamin 1 tab PO DAILY omeprazole 20 mg PO DAILY simvastatin 40 mg PO BEDTIME 90 days HPI SAWV HPI Details Patient is a 72-year-old female presents today for subsequent wellness visit. Patient of Dr. Morrow. Today we discussed patient's need for colon cancer screening, bone density screening, and tetanus vaccine. Patient has declined tetanus vaccine. Mammogram normal 08/2022. [place] of care was reviewed with the patient and she was provided with a screening schedule. Patient has a healthcare proxy in place and she was provided with a MOLST form. 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 Diabetes type 2, uncontrolled Surgical History History of colonoscopy History of repair of hiatal hernia History of cardiac catheterization Hx of hammer toe correction Hx of shoulder surgery Hx of tonsillectomy Hx laparoscopic cholecystectomy Hx of appendectomy Family History Brother Diabetes Father Lung cancer Mother HTN (hypertension) Social History Household Members: Family Housing: House Do you presently have visiting nurse or other home services: No Alcohol intake: current Alcohol intake frequency: holidays/special occasions only Patient Tobacco Use Status: Former Tobacco user Tobacco use type: Cigarette Years Smoked: 20 e-Cigarette/Vaping Use: Never Used Second Hand Smoke Exposure: No service: No Current occupational status: retired Cognitive needs: No Hearing needs: No Vision needs: Yes (Glasses) Questionnaire Medicare Wellness Checkup [age] What gender do you identify with?: female During the past 4 weeks, how much have you been bothered by emotional problems such as feeling anxious, depressed, irritable, sad or downhearted, and blue?: not at all During the past 4 weeks, has your physical & emotional health limited your social activities with family, friends, neighbors, or groups?: not at all During the past 4 weeks, how much bodily pain have you generally had?: no pain During the past 4 weeks, was someone available to help you if you needed & wanted help?: yes, as much as I wanted During the past 4 weeks, what was the hardest physical activity you could do for at least 2 minutes?: moderate Can you get to places out of walking distance without help? (For eg., can you travel alone on buses, taxis or drive your car?): Yes Can you go shopping for groceries or clothes without someone's help?: Yes Can you prepare your own meals?: Yes Can you do your housework without help?: Yes Because of any health problems, do you need the help of another person with your personal care needs such as eating, bathing, dressing or getting around the house?: No Can you handle your own money without help?: Yes During the past 4 weeks, how would you rate your health in general?: very good During the past 4 weeks how have things been going for you?: pretty well Are you having difficulties driving your car?: not applicable, I don't use a car Do you always fasten your seat belt when you are in a car?: yes, usually During past 4 weeks, have you been bothered by the following: never: Problems using the telephone?, seldom: Falling or dizzy when standing up and Trouble eating well?, sometimes: Tiredness or fatigue? and always: Teeth or denture problems? Have you fallen 2 or more times in the past year?: No Are you afraid of falling?: No Are you a smoker?: no During the past 4 weeks, how many drinks of wine, beer, or other alcoholic beverages did you have?: no alcohol at all Do you exercise for about 20 minutes 3 or more times a week?: yes, most of the time Have you been given information to help with the following?: no: Hazards in your house that might hurt you? and no: Keeping track of your medications? How often do you have trouble taking medicines the way you have been told to take them?: sometimes I take medicine as prescribed How confident are you that you can control & manage most of your health problems?: very confident What is your race?: White Mini Mental State Exam (MMSE) Orientation What is the (year) (season) (date) (day) (month)?: year, season, date, day and month Score Score: 5 Activity of Daily Living Bathing - sponge bath, tub bath or shower: receives no assistance (gets in/out by self, if usual bathing means Dressing - getting clothes from closets & drawers, including inner/outer garments & fasteners.: gets clothes & gets completely dressed without help Toileting - going to the 'toilet room' for urine/bowel elimination & cleaning self/arranging clothes: goes to toilet room, cleans self, arranges clothes without help Transfer: moves in & out of bed and chair without help (may use support object) Continence: controls urination/bowel movements completely by self Feeding: feeds self without help Total Score: 0 Information obtained from: patient Using telephone: independent Traveling: dependent Shopping: independent Preparing meals: independent Housework: independent Taking medicine: independent Managing money: independent PHQ-9 Over the last 2 weeks, how often have you been bothered by any of the following problems? 1. Little interest or pleasure in doing things: several days 2. Feeling down, depressed, or hopeless: not at all 3. Trouble falling or staying asleep, or sleeping too much: more than half the d ays 4. Feeling tired or having little energy: several days 5. Poor appetite or overeating: more than half the days 6. Feeling bad about yourself - or that you are a failure or have let yourself or your family down: not at all 7. Trouble concentrating on things, such as reading the newspaper or watching television: not at all 8. Moving or speaking so slowly that other people could have noticed. Or the opposite - being so fidgety or restless that you have been moving around a lot more than usual: not at all 9. Thoughts that you would be better off or of hurting yourself in some way: not at all Total score: 6 Depression Screening Interpretation: Negative [id number] - PHQ-9 Billing: Yes Source: Developed by Drs. Hugh Sanon, Kajal Fuentes, Sam mcmanus nd colleagues, with an educational melissa from [employer]. Physical Exam Vital Signs: Last Vital Signs Pulse 59 08/12/23 15:51 BP 132/80 08/12/23 15:51 Pulse Ox 98 08/12/23 15:51 Oxygen Delivery Method Room Air 08/12/23 15:51 BMI result Body Mass Index 32.1 Const General: cooperative and no acute distress Orientation/consciousness: patient oriented x3 HEENT Other: Whisper test: pass Neuro Other: Balance: Normal Get up and walk: able to Romberg: negative Tandem gait: unable to General: patient oriented x3 Results AMB Hemoglobin A1c AMB Hemoglobin A1c 7.1 % Last Edit by CHULA Lucia on 08/12/23 16:13 Results Reviewed Results Reviewed: Laboratory Last Values Hgb A1c (Clinic) 7.1 % (4.0-6.0) H 08/12/23 16:01 Assessment & Plan Assessment & Plan (1) Adult general medical exam: Code(s): Z00.00 - Encounter for general adult medical examination without abnormal findings (2) Type 2 diabetes mellitus with unspecified complications: Code(s): E11.8 - Type 2 diabetes mellitus with unspecified complications Plan: A1c 7.1 today Continue current treatment Low-carbohydrate diet (3) Essential hypertension: Code(s): I10 - Essential (primary) hypertension Plan: Continue current treatment. Reinforced low-sodium diet and exercise as tolerated. (4) Hypothyroidism: Code(s): E03.9 - Hypothyroidism, unspecified Qualifiers: Hypothyroidism type: acquired Qualified Code(s): E03.9 - Hypothyroidism, unspecified Plan: Continue current treatment (5) Atherosclerotic cardiovascular disease: Code(s): I25.10 - Atherosclerotic heart disease of [place] coronary artery without angina pectoris Plan: Continue current treatment Continue to follow-up with cardiology (6) Hyperlipidemia associated with type 2 diabetes mellitus: Code(s): E11.69 - Type 2 diabetes mellitus with other specified complication; E78.5 - Hyperlipidemia, unspecified Plan: Continue current treatment Low-cholesterol diet (7) Screening for colon cancer: Code(s): Z12.11 - Encounter for screening for malignant neoplasm of colon (8) Post-menopausal: Code(s): Z78.0 - Asymptomatic menopausal state Orders: Orders AMB Hemoglobin A1c 08/12/23 E11.8 - Type 2 diabetes mellitus with unspecified complications XR DEXA axial skeleton 08/12/23 Z78.0 - Asymptomatic menopausal state Referrals Gastroenterology Referral Z12.11 - Encounter for screening for malignant neoplasm of colon Quality Reporting (2019) Depression/Bipolar (159/160/161/177) PHQ-9: Total score: 6 Coding Level of Care Code Medicare Subsequent (G0439) Diagnoses Adult general medical exam Z00.00 Type 2 diabetes mellitus with unspecified complications E11.8 Essential hypertension I10 Acquired hypothyroidism E03.9 Hypothyroidism type: acquired Atherosclerotic cardiovascular disease I25.10 Hyperlipidemia associated with type 2 diabetes mellitus E11.69; E78.5 Screening for colon cancer Z12.11 Post-menopausal Z78.0 CPT Codes Advance Care Planning - Advance Care Planning discussion: On file, no changes ([id number]) Advance Care Planning - Time spent: 1-15 minutes, on File ([id number]) Advance Care Planning Advance Care Planning discussion: On file, no changes Date of discussion: 08/12/23 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
== END 2023-08-12 16:25 | disposition home or self-care (01) ==
PROVIDERS: Visit Provider Nurse Practitioner Family
DX: Z00.00 Encounter for general adult medical examination without abnormal findings (principal); E11.8 Type 2 diabetes mellitus with unspecified complications; E11.69 Type 2 diabetes mellitus with other specified complication; I10 Essential (primary) hypertension; E03.9 Hypothyroidism, unspecified; I25.10 Atherosclerotic heart disease of native coronary artery without angina pectoris; E78.5 Hyperlipidemia, unspecified; Z12.11 Encounter for screening for malignant neoplasm of colon; Z78.0 Asymptomatic menopausal state
CPT/HCPCS: 1123F; 83036; G0439

== ENCOUNTER 2023-08-18 13:29 | Outpatient (AMB) | payer MEDICARE, OTHER, SELFPAY ==
[2023-08-18 13:39] VITALS: BP 102/70; PULSE 81; BMI 31.3
--- NOTE | 2023-08-18 13:39 | A.OFFVIS_ITS ---
Intake Vital Signs 08/18/23 13:39 Height 5 ft 4 in Weight 182 lb 8.684 oz BMI 31.3 BP 102/70 Blood Pressure Location Lt brachial Position Sitting Pulse 81 Intake Visit Reasons: 1 year follow up Intake Note: 1 year follow up w/ EKG Ux Research Associate Required: No Accompanied by: Self / Same As Patient Allergies hydrocodone [From VICODIN] Allergy (Unknown, Verified 08/18/23 13:42) HEADACHE oxycodone [OXYCODONE] Allergy (Unknown, Verified 08/18/23 13:42) HIVES procaine [From NOVOCAIN] Allergy (Unknown, Verified 08/18/23 13:42) FAINTED Medication List - Last Reconciled 08/18/23 by Carson Bender MD amitriptyline 25 mg PO DAILY aspirin 81 mg PO DAILY blood sugar diagnostic (Accu-Chek SmartView Test Strips) As directed blood sugar diagnostic (FreeStyle Precision Hilton Strips) As directed blood sugar diagnostic (Accu-Chek Francoise Plus test strips) As directed twice a day cholecalciferol (vitamin D3) 25 mcg PO DAILY exenatide microspheres ER 2 mg (0.85 mL) subcut QWEEK 90 days gabapentin 600 mg PO TID levothyroxine 125 mcg PO DAILY metformin 1,000 mg (2 x 500 mg) PO DAILY metoprolol succinate ER (Toprol XL) 50 mg PO DAILY multivitamin 1 tab PO DAILY omeprazole 20 mg PO DAILY simvastatin 40 mg PO BEDTIME 90 days HPI HPI Comments History of Present Illness Details Miriam returns for follow-up regarding coronary disease. She used to see [facility] in the past. She has been having symptoms of shortness of breath and apparently that led to cardiac workup. She has had cardiac catheterization few years ago. Overall, she states she generally doing fine. No symptoms like chest pains or shortness of breath. Sometimes she can get dizzy. [facility] Medical History Hypoglycemia unawareness associated with type 2 diabetes mellitus Hyperlipidemia associated with type 2 diabetes mellitus Obesity Post-menopausal Screening for breast cancer Dizziness Pre-op exam IDDM (insulin dependent diabetes mellitus) Pre-op exam Diabetic polyneuropathy associated with type 2 diabetes mellitus Obesity (BMI 30-39.9) Hypertension Hypothyroidism 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 half-way (current) use of insulin Diabetes type 2, uncontrolled Surgical History History of colonoscopy History of repair of hiatal hernia History of cardiac catheterization Hx of hammer toe correction Hx of shoulder surgery Hx of tonsillectomy Hx laparoscopic cholecystectomy Hx of appendectomy Family History Brother Diabetes Father Lung cancer Mother HTN (hypertension) Social History Household Members: Family Housing: House Do you presently have visiting nurse or other home services: No Alcohol intake: current Alcohol intake frequency: holidays/special occasions only Patient Tobacco Use Status: Former Tobacco user Tobacco use type: Cigarette Years Smoked: 20 e-Cigarette/Vaping Use: Never Used Second Hand Smoke Exposure: No service: No Current occupational status: retired Cognitive needs: No Hearing needs: No Vision needs: Yes (Glasses) Review of Systems Const Denies weakness ENT Denies dizziness Card Denies chest pain, Denies chest pain with activity, Denies syncope, Denies rapid heart rate, Denies pedal edema, Denies edema, Denies leg edema, Denies lightheadedness, Denies palpitations, Denies dyspnea, Denies dyspnea on exertion and Denies orthopnea Resp Denies cough, Denies dyspnea and Denies dyspnea on exertion GI Denies hematochezia and Denies change in stool character Musc Denies abnormal gait, Denies muscle cramps, Denies muscle weakness, Denies numbness, Denies radiating pain into limb and Denies tingling Neuro Denies abnormal gait, Denies dizziness, Denies syncope, Denies numbness, Denies tingling and Denies weakness Endo Denies palpitations Physical Exam Vital Signs: Last Vital Signs Pulse 81 08/18/23 13:39 BP 102/70 08/18/23 13:39 BMI result Body Mass Index 31.3 Const General: comfortable and no acute distress Orientation/consciousness: patient oriented x3 HEENT Other: Unremarkable Head: Yes normal to inspection Neck Neck: Yes normal visual inspection Chest Chest palpation & inspection: normal inspection of the chest Resp Auscultation: clear to auscultation bilaterally Cardio Palpation: normal PMI Heart sounds: S1 normal heart sound present, S2 normal heart sound present, no gallops, no murmurs and no rubs GI Palpation (GI): Soft to palpation Back/Spine/Pelvis Other: unremarkable Skin General skin exam: no rashes or lesions noted Neuro General: patient oriented x3 Extrem General: Yes normal to inspection Psych Mental Status: mental status grossly normal Office Procedures EKG Details: EKG with sinus rhythm at 81/Min; cannot exclude old anterior infarct; slight DC prolongation to 220 milliseconds; [place]. [id number], Complete Assessment & Plan Assessment & Plan (1) Atherosclerotic cardiovascular disease: Code(s): I25.10 - Atherosclerotic heart disease of [place] coronary artery without angina pectoris Plan: Cardiac catheterization from 2018 with 60% stenosis in the ostial PLV branch, but otherwise unremarkable. Echocardiogram with LVEF of 65-70% with mild diastolic dysfunction. Clinically, no angina. Continue aspirin, beta-blockers and statins. Due to dizzy episodes, can decrease metoprolol dose from 50 mg to 25 mg daily. (2) Type 2 diabetes mellitus with unspecified complications: Code(s): E11.8 - Type 2 diabetes mellitus with unspecified complications Plan: On metformin. Hemoglobin A1c is 7.1%. Reasonable. (3) Essential hypertension: Code(s): I10 - Essential (primary) hypertension Plan: Stable. No changes. (4) Other and unspecified hyperlipidemia: Code(s): E78.5 - Hyperlipidemia, unspecified Plan: On statins. Last LDL 47 mg/dL. (5) First degree heart block: Code(s): I44.0 - Atrioventricular block, first degree Plan: Decrease beta-shannon dosing as above. Medications: New metoprolol succinate ER (Toprol XL) 25 mg PO DAILY 90 tabs 3RF Discontinued metoprolol succinate ER (Toprol XL) Discontinued Reason: Doctor's Order 50 mg PO DAILY 90 tabs 3RF Coding Level of Care Code Est Pt Level 4 (04125) Diagnoses Atherosclerotic cardiovascular disease I25.10 Type 2 diabetes mellitus with unspecified complications E11.8 Essential hypertension I10 Other and unspecified hyperlipidemia E78.5 First degree heart block I44.0 CPT Codes EKG - CPT: 26987-[id number], Complete ([id number])
== END 2023-08-18 14:10 | disposition home or self-care (01) ==
PROVIDERS: PCP Internal Medicine; Visit Provider Internal Medicine
DX: I25.10 Atherosclerotic heart disease of native coronary artery without angina pectoris (principal); E11.8 Type 2 diabetes mellitus with unspecified complications; I10 Essential (primary) hypertension; E78.5 Hyperlipidemia, unspecified; I44.0 Atrioventricular block, first degree
CPT/HCPCS: 93010; 99214

== ENCOUNTER → 2023-08-18 13:29 | Outpatient (BNVA) | payer MEDICARE, OTHER, SELFPAY | PROVIDERS: PCP Internal Medicine; Visit Provider Internal Medicine | DX: I25.10 Atherosclerotic heart disease of native coronary artery without angina pectoris (principal); I10 Essential (primary) hypertension; I44.0 Atrioventricular block, first degree; E78.5 Hyperlipidemia, unspecified; E11.8 Type 2 diabetes mellitus with unspecified complications | CPT/HCPCS: 93005; 99212 ==

== ENCOUNTER 2023-09-16 13:01 | Outpatient (REF) | payer MEDICARE, OTHER, SELFPAY ==
--- NOTE | ~2023-09-16 | MM_ITS ---
EXAMINATION: MM SCREENING DIGITAL BREAST TOMOSYNTHESIS, BILATERAL CLINICAL INFORMATION: Screening. Asymptomatic. COMPARISON: Mammography: This study is compared with prior exams dating back to 2017. TECHNIQUE: Digital breast tomosynthesis is performed in both the craniocaudal and mediolateral oblique views along with computer-aided detection (CAD). Synthesized 2D images are generated from the tomosynthesis. FINDINGS: The breasts are almost entirely fatty (ACR BI-RADS breast composition Category a). There are no significant masses, abnormal calcifications, or other abnormalities. MM/MM tomosynthesis screening BI IMPRESSION: No mammographic evidence of malignancy. ASSESSMENT: BI-RADS BI-RADS 1 - Negative RECOMMENDATION: Routine annual mammography screening. 1 year F/U This examination should not preclude the clinical evaluation of a suspicious palpable abnormality. This patient's information was entered into a reminder system with a target due date for their next mammogram.
--- NOTE | ~2023-09-16 | MM_ITS ---
EXAMINATION: BONE DENSITOMETRY CLINICAL INDICATION: Asymptomatic menopausal state. COMPARISON: Previous BD dated 08/26/2021 and baseline BD dated 03/14/2018. TECHNIQUE: Using a [employer] DXA System (software version: 13.1) manufactured by [employer], dual-energy x-ray absorptiometry was performed of the lumbar spine and left hip. The images are of good technical quality. Summary results are attached. FINDINGS: LEFT FEMUR, NECK: Current: BMD 0.924 g/cm2, Z-score 0.6, T-score -0.8, normal. Prior: BMD 1.001 g/cm2. Baseline: BMD 1.031 g/cm2. LEFT FEMUR, TOTAL: Current: BMD 1.026 g/cm2, Z-score 1.3, T-score 0.1, normal, 3.8% decrease from previous, 6.7% decrease from baseline (<5% change is not significant). Prior: BMD 1.067 g/cm2. Baseline: BMD 1.100 g/cm2. AP SPINE L1-L4: Current: BMD 1.242 g/cm2, Z-score 1.5, T-score 0.5, normal, 4.6% decrease from previous, 2.3% decrease from baseline (<5% change is not significant). Prior: BMD 1.302 g/cm2. Baseline: BMD 1.271 g/cm2. IDENTIFIED RISK FACTORS: Height loss, menopause. HISTORY OF FRACTURE: None listed. MEDICATIONS: Calcium supplements or multivitamin, vitamin D. MM/XR DEXA axial skeleton IMPRESSION: 1. DIAGNOSIS: Normal bone density based on the lowest T-score value of -0.8 in the femoral neck applying World Health Organization criteria. 2. 10-YEAR FRACTURE RISK PREDICTION, FRAX: According to the guidelines, FRAX calculation should only be performed on patients in the osteopenia bone density category. Therefore, FRAX was not performed on this patient. 3. Treatment Recommendations: NOF guidelines recommend consideration for treatment in postmenopausal women and men age 50 and older presenting with the following: -A hip or vertebral (clinical or morphometric) fracture. -T-score less than or equal to -2.5 at the femoral neck or spine after appropriate evaluation to exclude secondary causes. -Low bone mass at the hip or spine and a 10-year fracture probability by FRAX of greater than or equal to 3% for hip fracture or greater than or equal to 20% for major osteoporotic fracture based on the [place] adapted WHO algorithm. 4. Other Recommendations: All treatment decisions require clinical judgment and consideration of individual patient factors, including patient preferences, comorbidities, previous drug use, risk factors not captured in the FRAX model (e.g. frailty, falls, vitamin D deficiency, increased bone turnover, interval significant decline in bone density) and possible under or overestimation of fracture risk by FRAX. FUTURE SCAN RECOMMENDATION: People with diagnosed cases of osteoporosis or at high risk for fracture should have regular bone mineral density tests. For patients eligible for Medicare, routine testing is allowed once every 2 years. The testing frequency can be increased to one year for patients who have rapidly progressing disease, those who are receiving or discontinuing medical therapy to restore bone mass, or have additional risk factors.
== END 2023-09-16 13:02 | disposition home or self-care (01) ==
LOC: HO.MAMMO 13:01
PROVIDERS: PCP Internal Medicine; Visit Provider Nurse Practitioner Family
DX: Z12.31 Encounter for screening mammogram for malignant neoplasm of breast (principal); Z13.820 Encounter for screening for osteoporosis; Z78.0 Asymptomatic menopausal state
CPT/HCPCS: 77063; 77067; 77080

== ENCOUNTER → 2023-09-16 13:15 | Outpatient (BNV) | payer MEDICARE, OTHER, SELFPAY | PROVIDERS: PCP Internal Medicine; Visit Provider Radiology Diagnostic Radiology | DX: Z12.31 Encounter for screening mammogram for malignant neoplasm of breast (principal) | CPT/HCPCS: 77063; 77067 ==

== ENCOUNTER 2023-09-19 14:03 | Outpatient (REF) | payer MEDICARE, OTHER, SELFPAY ==
[2023-09-19 14:56] LABS: Estimated Average Glucose 151 mg/dL; Hemoglobin A1c % 6.9 % (<6.0)
[2023-09-19 15:06] LABS: Glucose Fasting 141 mg/dL (60-99)
== END 2023-09-19 14:04 | disposition home or self-care (01) ==
LOC: HO.LAB 14:03
PROVIDERS: PCP Internal Medicine; Visit Provider Internal Medicine
DX: Z01.818 Encounter for other preprocedural examination (principal); R10.13 Epigastric pain; K21.9 Gastro-esophageal reflux disease without esophagitis; K58.1 Irritable bowel syndrome with constipation; R73.9 Hyperglycemia, unspecified
CPT/HCPCS: 36415; 82947; 83036; 99202

== ENCOUNTER 2023-09-20 13:09 | Outpatient (AMB) | payer MEDICARE, OTHER, SELFPAY ==
--- NOTE | 2023-09-20 13:14 | MHC.PC.OV ---
Vital Signs 09/20/23 13:15 Height 5 ft 4 in Weight 186 lb BMI 31.9 BP 124/68 Blood Pressure Location Lt brachial Position Sitting Pulse 67 Pulse Source Pulse Oximeter Pulse Oximetry (%) 98 Oxygen Delivery Method Room Air Intake Visit Reasons: 4mth f/u Allergies hydrocodone [From VICODIN] Allergy (Unknown, Verified 09/20/23 13:15) HEADACHE oxycodone [OXYCODONE] Allergy (Unknown, Verified 09/20/23 13:15) HIVES procaine [From NOVOCAIN] Allergy (Unknown, Verified 09/20/23 13:15) FAINTED Medication List - Last Reconciled 09/20/23 by Buddy Morrow MD amitriptyline 25 mg PO DAILY aspirin 81 mg PO DAILY blood sugar diagnostic (Accu-Chek SmartView Test Strips) As directed blood sugar diagnostic (FreeStyle Precision [place] Strips) As directed blood sugar diagnostic (Accu-Chek Francoise Plus test strips) As directed twice a day cholecalciferol (vitamin D3) 25 mcg PO DAILY exenatide microspheres ER 2 mg (0.85 mL) subcut QWEEK 90 days gabapentin 600 mg PO TID levothyroxine 125 mcg PO DAILY metformin 1,000 mg (2 x 500 mg) PO DAILY metformin 1,000 mg PO DAILY metoprolol succinate ER (Toprol XL) 25 mg PO DAILY metoprolol tartrate 25 mg PO DAILY multivitamin 1 tab PO DAILY pantoprazole 40 mg PO DAILY sennosides (Natural Senna Laxative) 17.2 mg (2 x 8.6 mg) PO BEDTIME simvastatin 40 mg PO BEDTIME 90 days Tobacco use date assessed: 02/07/23 Fall risk assessment: 1 Fall in past year Last assessed Fall Risk: 09/20/23 Dental Screening Dental Screen Date: 09/20/23 Did you have a dental visit in the last 12 months?: No Did you have a dental problem in the last 6 months where you did not have access to dental care?: No Was dental information given to patient?: Patient has dentist HPI 4mth f/u HPI Details DM on Rx; doing well and compliant [facility] Medical History Hypoglycemia unawareness associated with type 2 diabetes mellitus Hyperlipidemia associated with type 2 diabetes mellitus Obesity Post-menopausal Screening for breast cancer Dizziness Pre-op exam IDDM (insulin dependent diabetes mellitus) Pre-op exam Diabetic polyneuropathy associated with type 2 diabetes mellitus Obesity (BMI 30-39.9) Hypertension Hypothyroidism 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 assisted (current) use of insulin Diabetes type 2, uncontrolled Surgical History History of colonoscopy History of repair of hiatal hernia History of cardiac catheterization Hx of hammer toe correction Hx of shoulder surgery Hx of tonsillectomy Hx laparoscopic cholecystectomy Hx of appendectomy Family History Brother Diabetes Father Lung cancer Mother HTN (hypertension) Social History Household Members: Family Housing: House Do you presently have visiting nurse or other home services: No Alcohol intake: current Alcohol intake frequency: holidays/special occasions only Patient Tobacco Use Status: Former Tobacco user Tobacco use type: Cigarette Years Smoked: 20 e-Cigarette/Vaping Use: Never Used Second Hand Smoke Exposure: No service: No Current occupational status: retired Cognitive needs: No Hearing needs: No Vision needs: Yes (Glasses) Questionnaire PHQ-9 Over the last 2 weeks, how often have you been bothered by any of the following problems? 1. Little interest or pleasure in doing things: several days 2. Feeling down, depressed, or hopeless: not at all 3. Trouble falling or staying asleep, or sleeping too much: more than half the days 4. Feeling tired or having little energy: several days 5. Poor appetite or overeating: more than half the days 6. Feeling bad about yourself - or that you are a failure or have let yourself or your family down: not at all 7. Trouble concentrating on things, such as reading the newspaper or watching television: not at all 8. Moving or speaking so slowly that other people could have noticed. Or the opposite - being so fidgety or restless that you have been moving around a lot more than usual: not at all 9. Thoughts that you would be better off or of hurting yourself in some way: not at all Total score: 6 Depression Screening Interpretation: Negative Depression Screening Done: Yes 81210 - PHQ-9 Billing: Yes Source: Developed by Drs. Hugh Sanon, Sam Mckeon and colleagues, with an educational melissa from [employer]. Thrive Questionnaire Date Thrive assessed: 02/07/23 AUDIT C Alcohol Use Questionnaire (AUDIT-C) 1. How often do you have a drink containing alcohol?: Monthly or less 2. How many drinks containing alcohol do you have on a typical day when you are drinking?: 1 or 2 3. How often do you have six or more drinks on one occasion?: Never Total Score: 1 Score Reviewed/Action Taken: No GHAZAL-7 AMB Questionnaire GHAZAL-7 Date GHAZAL - 7 assessed: 02/07/23 Source: Developed by Drs. Hugh Sanon, Kajal Fuentes, Sam Padgett and colleagues, with an educational melissa from [employer]. Review of Systems Const Denies chills, Denies headache(s) and Denies weight loss ENT Denies headache(s) Card Denies chest pain, Denies syncope, Denies irregular heart rhythm and Denies dyspnea Resp Denies chest congestion, Denies cough and Denies dyspnea GI Denies abdominal pain, Denies change in stool character, Denies nausea and Denies vomiting Musc Denies deformity and Denies joint swelling Neuro Denies syncope and Denies headache(s) Physical exam (Primary Care) Vital Signs: Last Vital Signs Pulse 67 09/20/23 13:15 BP 124/68 09/20/23 13:15 Pulse Ox 98 09/20/23 13:15 Oxygen Delivery Method Room Air 09/20/23 13:15 BMI result Body Mass Index 31.9 Tobacco/Smoking Status: Tobacco use Status Tobacco use date assessed 02/07/23 09/20/23 13:20 Patient Tobacco Use Status Former Tobacco user 09/20/23 13:20 Tobacco use type Cigarette 09/20/23 13:20 e-Cigarette/Vaping Use Never Used 09/20/23 13:20 PHQ-9: PHQ-9 Score PHQ-9: Total score 6 09/20/23 13:40 Depression Screening Interpretation: Negative Thrive Assessment: Date of Thrive Assessment Date Thrive assessed 02/07/23 09/20/23 13:20 Const General: cooperative, comfortable, no acute distress and alert Neck Neck: Yes no lymphadenopathy Thyroid: Thyroid normal Resp Effort & Inspection: normal respiratory effort Auscultation: clear to auscultation bilaterally Percussion: percussion normal Cardio Jugular venous distension: no JVD Palpation: normal PMI Rate: regular rate Rhythm: regular rhythm Heart sounds: S1 normal heart sound present and S2 normal heart sound present GI Inspection: Yes normal to inspection Palpation (GI): No hepatosplenomegaly present Skin General skin exam: no rashes or lesions noted Extrem General: Yes no clubbing, cyanosis or edema Office Procedures Flu Questionnaire Does the patient have a severe egg allergy?: No Does the patient have severe life threatening allergies?: No Does the patient have a fever or illness today?: No Has the patient ever had Guillain-[place] Syndrome?: No Has the patient ever had any past reaction to a flu shot?: No Immunizations flu vacc [id number] 6mos up(PF) 60 mcg(15 mcgx4)/0.5 mL IM syringe Performing Provider: Buddy Morrow MD Performing Location: [facility] Administered by: CHULA Rey on 09/20/23 13:40 Dose Route Admin Location Dispensed Lot Number Expiration Date [employer] 0.5 mL IM Left Deltoid 0.5 mL [id number] 05/27/24 69112-102-41 Campus Sponsorship VIS Given Date VIS Provided VIS Publication Date 09/20/23 Single Vaccine 21 Eligibility Eligibility Date Funding Source Not [facility] Eligible 09/20/23 Private Assessment and Plan Assessment & Plan (1) Type 2 diabetes mellitus with unspecified complications: Code(s): E11.8 - Type 2 diabetes mellitus with unspecified complications Plan: stable; same rx Orders: Orders Thyroid Stimulating Hormone Today E03.9 - Hypothyroidism, unspecified Complete Blood Count Auto Diff Today D64.9 - Anemia, unspecified Comprehensive [place]. Panel Fast Today N28.9 - Disorder of kidney and ureter, unspecified Influenza [id number] Immunization Today Z23 - Encounter for immunization Lipid Panel Today E78.5 - Hyperlipidemia, unspecified Hemoglobin A1c Today R73.9 - Hyperglycemia, unspecified Medications: New metformin 1,000 mg PO DAILY 90 tabs 8RF metoprolol tartrate 25 mg PO DAILY 90 tabs 0RF Refilled levothyroxine 125 mcg PO DAILY 90 tabs 11RF E03.9 - Hypothyroidism, unspecified Coding Level of Care Code Est Pt Level 3 (22025) Diagnoses Type 2 diabetes mellitus with unspecified complications E11.8
[2023-09-20 13:15] VITALS: BP 124/68; PULSE 67; O2SAT 98; BMI 31.9
== END 2023-09-20 13:41 | disposition home or self-care (01) ==
PROVIDERS: PCP Internal Medicine; Visit Provider Internal Medicine
DX: Z23 Encounter for immunization (principal); E11.8 Type 2 diabetes mellitus with unspecified complications
CPT/HCPCS: 90471; 90686; 99213

== ENCOUNTER 2023-10-24 11:30 | Outpatient (REF) | payer MEDICARE, OTHER, SELFPAY ==
[2023-10-24 12:23] LABS: Alanine Aminotransferase 25 U/L (0-31); Albumin Level 3.9 g/dL (3.5-5.0); Alkaline Phosphatase 59 U/L (39-117); Aspartate Amino Transferase 27 U/L (5-31); Bilirubin Direct 0.2 mg/dL (0.0-0.5); Bilirubin Total 0.6 mg/dL (0.0-1.0); Lipase 39 U/L (8-78)
[2023-10-24 12:54] LABS: Folate 14.5 ng/mL (> or = 4.0); Vitamin B12 869 pg/mL (200-900)
[2023-10-25 13:19] LABS: Transglutaminase Ab IgG <1.0 U/mL; Transglutaminase IgA <1.0 U/mL
[2023-10-28 15:54] LABS: Vitamin D 25-OH, D2 <4 ng/mL; Vitamin D 25-OH, D3 84 ng/mL; Vitamin D 25-OH, Total 84 ng/mL (30-100)
== END 2023-10-24 11:31 | disposition home or self-care (01) ==
LOC: HO.LAB 11:30
PROVIDERS: PCP Internal Medicine; Visit Provider Nurse Practitioner Family
DX: R10.9 Unspecified abdominal pain (principal); R19.7 Diarrhea, unspecified; E55.9 Vitamin D deficiency, unspecified
CPT/HCPCS: 36415; 80076; 82306; 82607; 82746; 83690; 86364

== ENCOUNTER 2023-10-26 13:24 | Outpatient (REF) | payer MEDICARE, OTHER, SELFPAY | END 2023-10-26 13:25 | disposition home or self-care (01) | LOC: CF 13:24 | PROVIDERS: PCP Internal Medicine; Visit Provider Nurse Practitioner Family | DX: R10.13 Epigastric pain (principal); K21.9 Gastro-esophageal reflux disease without esophagitis; K58.1 Irritable bowel syndrome with constipation; R13.19 Other dysphagia | CPT/HCPCS: 87338; 99212 ==

== ENCOUNTER 2023-10-26 13:24 | Outpatient (AMB) | payer MEDICARE, OTHER, SELFPAY ==
--- NOTE | 2023-10-26 13:26 | MHC.OFFVIS ---
Intake Vital Signs 10/26/23 13:33 Height 5 ft 4 in Weight 185 lb 3.013 oz BMI 31.8 BP 131/68 Blood Pressure Location Lt brachial Position Sitting Pulse 69 Pulse Oximetry (%) 97 Oxygen Delivery Method Room Air Intake Visit Reasons: discuss EGD and Colonoscopy. Intake Note: Sarah presents in the office to discuss having procedures. CC: No concerns today she did have blood work that she would like results to that. [employer] Required: No Allergies hydrocodone [From VICODIN] Allergy (Unknown, Verified 10/26/23 13:33) HEADACHE oxycodone [OXYCODONE] Allergy (Unknown, Verified 10/26/23 13:33) HIVES procaine [From NOVOCAIN] Allergy (Unknown, Verified 10/26/23 13:33) FAINTED HPI discuss EGD and Colonoscopy. HPI Details LAST VISIT: Screening for colon cancer Postprandial epigastric pain GERD (gastroesophageal reflux disease) IBS (irritable bowel syndrome) Plan Patient denies any cardiac or respiratory symptoms.? Denies any issues with anesthesia in the past.? Denies any history of sleep apnea.? Patient had colonoscopy in November of 2018. Tubular adenoma found in sigmoid colon. Recommendation was made to repeat in 3-5 years. No history infectious diseases in the past or present.? Not on any anticoagulation therapy.? Patient reports to have epigastric discomfort, dyspepsia and dysphagia without odynophagia. I will send patient for barium swallow. Will check for H pylori and treat empirically if positive. Will also check transglutaminase, vitamin B12, folate, vitamin-D level. Will check lipase and liver panel. Patient does have epigastric discomfort. Patient should also go for upper endoscopy. She is going to start pantoprazole is a in the morning half an hour before breakfast. Patient will be started on Senokot to have her move her bowels better. She was also encouraged to increase fluid intake and activity to promote better bowel motility. I will see her in 5 weeks, sooner on as needed basis. Patient is agreeable to this plan and verbalizes understanding of instructions. She was given the opportunity to ask questions and all questions answered. ? Thank you for allowing me to participate in her care Orders Orders FL barium swallow 09/19/23 R13.10 H pylori Ag Stool 09/19/23 K21.9 Transglutaminase Ab IgG 09/19/23 R10.9 Transglutaminase IgA 09/19/23 R10.9 Vitamin B12 and Folate 09/19/23 R19.7 Vitamin D 25-OH (D2 and D3) 09/19/23 E55.9 Lipase 09/19/23 R10.9 Liver Panel 09/19/23 R10.9 Medications New pantoprazole take one tablet half an hour before breakfast 40 mg PO DAILY 30 tabs 2RF K21.9 sennosides (Natural Senna Laxative) 17.2 mg (2 x 8.6 mg) PO BEDTIME 60 tabs 3RF constipation K59.00 Discontinued omeprazole Discontinued Reason: Duplicate 20 mg PO DAILY 90 caps 8RF TODAY'S VISIT Patient is here today for follow-up and to discuss lab results. Patient reports that she continues to have globus like sensation when she eats. As mentioned above patient had history of incarcerated paraesophageal hernia repair few years ago. Patient denies any nausea or vomiting. Denies any choking episodes. Patient admits that she does not feel like her symptoms are related to acid reflux. Patient has barium swallow study on December 02. Currently she is taking pantoprazole in the morning and does not see any difference. Patient states that she is moving her bowels, however she does not feel like she empties them completely. Patient reports occasional postprandial abdominal bloating and loose stools. Patient does admit to be eating yogurt and drinking milk. Patient is also eating bread that makes her bloated. Patient denies any melena, hematochezia, unintentional weight loss or ribbon like stools. Patient reports that her blood sugars have been under control [facility] Medical History Hypoglycemia unawareness associated with type 2 diabetes mellitus Hyperlipidemia associated with type 2 diabetes mellitus Obesity Post-menopausal Screening for breast cancer Dizziness Pre-op exam IDDM (insulin dependent diabetes mellitus) Pre-op exam Diabetic polyneuropathy associated with type 2 diabetes mellitus Obesity (BMI 30-39.9) Hypertension Hypothyroidism 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 snf (current) use of insulin Diabetes type 2, uncontrolled Surgical History History of colonoscopy History of repair of hiatal hernia History of cardiac catheterization Hx of hammer toe correction Hx of shoulder surgery Hx of tonsillectomy Hx laparoscopic cholecystectomy Hx of appendectomy Family History Brother Diabetes Father Lung cancer Mother HTN (hypertension) Social History Household Members: Family Housing: House Do you presently have visiting nurse or other home services: No Alcohol intake: current Alcohol intake frequency: holidays/special occasions only Patient Tobacco Use Status: Former Tobacco user Tobacco use type: Cigarette Years Smoked: 20 e-Cigarette/Vaping Use: Never Used Second Hand Smoke Exposure: No service: No Current occupational status: retired Cognitive needs: No Hearing needs: No Vision needs: Yes (Glasses) Review of Systems Const Denies weight gain and Denies weight loss ENT Reports no additional complaints, Reports dysphagia and Denies odynophagia Card Reports no additional complaints Resp Reports no additional complaints GI Denies abdominal pain, Denies belching, Denies melena, Denies bloating, Denies change in bowel habits, Reports constipation, Reports dysphagia, Denies excessive flatus, Denies dyspepsia, Denies heartburn, Denies diarrhea, Denies loose stools, Denies nausea, Denies odynophagia and Denies vomiting Reports no additional complaints Musc Reports no additional complaints Neuro Reports no additional complaints Psych Reports no additional complaints Endo Reports no additional complaints Physical Exam Vital Signs: Last Vital Signs Pulse 69 10/26/23 13:33 BP 131/68 10/26/23 13:33 Pulse Ox 97 10/26/23 13:33 Oxygen Delivery Method Room Air 10/26/23 13:33 BMI result Body Mass Index 31.8 Const General: healthy appearing, no acute distress and well developed Nutritional Appearance: well nourished Orientation/consciousness: patient oriented x3 HEENT Head: Yes normal to inspection, Yes normocephalic and Yes atraumatic Face and sinus: Yes normal facial exam Mouth: Normal oral and palatal mucosa present Throat: Yes posterior oropharynx normal, Yes tonsils normal and Yes uvula midline Eyes General: appearance normal, both eyes and all related structures Neck Neck: Yes normal visual inspection, Yes full ROM and Yes trachea midline Thyroid: Thyroid normal Resp Effort & Inspection: normal respiratory effort, able to speak in complete sentences, no tracheal deviation and symmetric chest movement Auscultation: clear to auscultation bilaterally Cardio Rate: regular rate Heart sounds: S1 normal heart sound present and S2 normal heart sound present GI Inspection: Yes normal to inspection and No distended Palpation (GI): Soft to palpation, not firm, nontender and No hepatosplenomegaly present Auscultation: normal bowel sounds General: Yes no CVA tenderness Back/Spine/Pelvis Back: no CVA tenderness Skin General skin exam: elasticity normal, turgor normal and dry skin Neuro General: patient oriented x3 Psych Appearance: grossly normal Mental Status: mental status grossly normal Affect: normal affect Results Reviewed Results Reviewed: Laboratory Tests 10/24/23 11:47 Lipase 39 Vitamin B12 869 Folate 14.5 Tiss Transglutamin IgG <1.0 Tiss Transglutamin IgA <1.0 Assessment & Plan Assessment & Plan (1) Postprandial epigastric pain: Code(s): R10.13 - Epigastric pain (2) GERD (gastroesophageal reflux disease): Code(s): K21.9 - Gastro-esophageal reflux disease without esophagitis Qualifiers: Esophagitis presence: esophagitis presence not specified Qualified Code(s): K21.9 - Gastro-esophageal reflux disease without esophagitis (3) IBS (irritable bowel syndrome): Code(s): K58.9 - Irritable bowel syndrome without diarrhea Qualifiers: Irritable bowel syndrome type: with constipation Qualified Code(s): K58.1 - Irritable bowel syndrome with constipation (4) Dysphagia: Code(s): R13.10 - Dysphagia, unspecified Qualifiers: Dysphagia type: esophageal phase Qualified Code(s): R13.19 - Other dysphagia Plan Patient will stop pantoprazole and start Nexium. I will give her script for sucralfate and she can continue taking senna in the evening. Discussed with patient all FODMAP diet. List of food recommended as well as list of food to avoid given to patient. Patient will follow-up in the office after barium swallow. Currently patient is unable to drink fluids as she reports that everything feels like it is coming back up. Unable to do prep for colonoscopy right now. Patient might have to go for upper endoscopy 1st to rule out achalasia, Schatzki ring, sliding hiatal hernia, esophagitis, gastritis, Puga's. Patient will follow-up in the office week to 2 after her barium swallow, sooner on as needed basis. Patient is agreeable to this plan and verbalizes understanding of instructions. She was given the opportunity to ask questions and all questions answered. Thank you for allowing me to participate in her care Medications: New methylcellulose (laxative) (Citrucel) 500 mg PO DAILY 30 tabs 2RF K59.00 - Constipation, unspecified esomeprazole magnesium (Nexium) 40 mg PO DAILY 30 caps 5RF K21.9 - Gastro-esophageal reflux disease without esophagitis Discontinued pantoprazole take one tablet half an hour before breakfast Discontinued Reason: Doctor's Order 40 mg PO DAILY 30 tabs 2RF K21.9 - Gastro-esophageal reflux disease without esophagitis Coding Level of Care Code Est Pt Level 4 (29151) Diagnoses Postprandial epigastric pain R10.13 Gastroesophageal reflux disease, unspecified whether esophagitis present K21.9 Esophagitis presence: esophagitis presence not specified Irritable bowel syndrome with constipation K58.1 Irritable bowel syndrome type: with constipation Esophageal dysphagia R13.19 Dysphagia type: esophageal phase Time Spent (min) 35 Comment 20 minutes spent with patient and additional 15 minutes spent reviewing her records
[2023-10-26 13:33] VITALS: BP 131/68; PULSE 69; O2SAT 97; BMI 31.8
== END 2023-10-26 14:02 | disposition home or self-care (01) ==
PROVIDERS: PCP Internal Medicine; Visit Provider Nurse Practitioner Family
DX: R10.13 Epigastric pain (principal); K21.9 Gastro-esophageal reflux disease without esophagitis; K58.1 Irritable bowel syndrome with constipation; R13.19 Other dysphagia
CPT/HCPCS: 99214

== ENCOUNTER 2023-12-02 09:05 | Outpatient (REF) | payer MEDICARE, OTHER, SELFPAY | END 2023-12-02 09:06 | disposition home or self-care (01) | LOC: HO.XRAY 09:05 | PROVIDERS: PCP Internal Medicine; Visit Provider Nurse Practitioner Family | DX: R13.10 Dysphagia, unspecified (principal) | CPT/HCPCS: 74220 ==

== ENCOUNTER → 2023-12-02 09:06 | Outpatient (BNV) | payer MEDICARE, SELFPAY | PROVIDERS: PCP Internal Medicine; Visit Provider Radiology Diagnostic Radiology | DX: R13.10 Dysphagia, unspecified (principal) | CPT/HCPCS: 74221 ==

== ENCOUNTER 2023-12-14 13:30 | Outpatient (AMB) | payer MEDICARE, OTHER, SELFPAY ==
--- NOTE | 2023-12-14 13:32 | MHC.OFFVIS ---
Intake Vital Signs 12/14/23 13:34 Height 5 ft 4 in Weight 180 lb 12.465 oz BMI 31.0 BP 162/79 H Blood Pressure Location Lt brachial Position Sitting Pulse 62 Pulse Oximetry (%) 99 Intake Visit Reasons: 2 month follow up Intake Note: Miriam presents in the office as a 2 month follow up. CC: No concerns just anxious of the Ba swallow results. 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 I will give her script for sucralfate and she can continue taking senna in the evening. Discussed with patient all FODMAP diet. List of food recommended as well as list of food to avoid given to patient. Patient will follow-up in the office after barium swallow. Currently patient is unable to drink fluids as she reports that everything feels like it is coming back up. Unable to do prep for colonoscopy right now. Patient might have to go for upper endoscopy 1st to rule out achalasia, Schatzki ring, sliding hiatal hernia, esophagitis, gastritis, Puga's. Patient will follow-up in the office week to 2 after her barium swallow, sooner on as needed basis. Patient is agreeable to this plan and verbalizes understanding of instructions. She was given the opportunity to ask questions and all questions answered. ? Thank you for allowing me to participate in her care Medications New methylcellulose (laxative) (Citrucel) 500 mg PO DAILY 30 tabs 2RF K59.00 esomeprazole magnesium (Nexium) 40 mg PO DAILY 30 caps 5RF K21.9 Discontinued pantoprazole take one tablet half an hour before breakfast Discontinued Reason: Doctor's Order 40 mg PO DAILY 30 tabs 2RF K21.9 TODAY'S VISIT Patient is here today for follow-up and to discuss barium swallow results. Patient is started and when she does remember taking it states that she is feeling better, however she continues to have postprandial epigastric discomfort. Patient reports that she has feeling in her throat like there is something there and she is having trouble swallowing. Barium swallow results discussed with patient. There was a trace laryngeal penetration with thin barium, no gross aspiration to glottis. 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 Patulous esophagus with mild irregular mucosal appearance which may represent ulcerative/erosive esophagitis. Disordered motility of the esophagus. Moderate sized sliding type hiatal hernia. Stricture of the gastric found this found likely causing patient's regurgitation and recurrent hernia. Gastric mucosa in the mid and distal body/antrum retaining contrast, suspicion for grouped superficial ulcerations. Patient denies any nausea or vomiting. Reports occasional dyspepsia with dysphagia without odynophagia. Patient denies any abdominal pain or discomfort. Reports that she is moving her bowels well without any issues. Denies melena, hematochezia, unintentional weight loss or ribbon like stools. [facility] Medical History (Updated 12/14/23 @ 16:42 by Linda Melgar [facility]) Dysphagia Hypoglycemia unawareness associated with type 2 diabetes mellitus Hyperlipidemia associated with type 2 diabetes mellitus Obesity Post-menopausal Screening for breast cancer Dizziness Pre-op exam IDDM (insulin dependent diabetes mellitus) Pre-op exam Diabetic polyneuropathy associated with type 2 diabetes mellitus Obesity (BMI 30-39.9) Hypertension Hypothyroidism 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 snf (current) use of insulin Diabetes type 2, uncontrolled Surgical History History of colonoscopy History of repair of hiatal hernia History of cardiac catheterization Hx of hammer toe correction Hx of shoulder surgery Hx of tonsillectomy Hx laparoscopic cholecystectomy Hx of appendectomy Family History Brother Diabetes Father Lung cancer Mother HTN (hypertension) Social History Household Members: Family Housing: House Do you presently have visiting nurse or other home services: No Alcohol intake: current Alcohol intake frequency: holidays/special occasions only Patient Tobacco Use Status: Former Tobacco user Tobacco use type: Cigarette Years Smoked: 20 e-Cigarette/Vaping Use: Never Used Second Hand Smoke Exposure: No service: No Current occupational status: retired Cognitive needs: No Hearing needs: No Vision needs: Yes (Glasses) Review of Systems Const Denies weight gain and Denies weight loss ENT Reports no additional complaints, Reports dysphagia and Denies odynophagia Card Reports no additional complaints Resp Reports no additional complaints GI Reports abdominal pain (Epigastric), Denies belching, Denies melena, Denies bloating, Denies change in bowel habits, Reports dysphagia, Denies excessive flatus, Reports early satiety, Reports dyspepsia, Reports heartburn, Denies diarrhea, Denies loose stools, Denies nausea, Denies odynophagia and Denies vomiting Reports no additional complaints Musc Reports no additional complaints Neuro Reports no additional complaints Psych Reports no additional complaints Endo Reports no additional complaints Physical Exam Vital Signs: Last Vital Signs Pulse 62 12/14/23 13:34 BP 162/79 H 12/14/23 13:34 Pulse Ox 99 12/14/23 13:34 BMI result Body Mass Index 31.0 Const General: healthy appearing, no acute distress and well developed Nutritional Appearance: obese Orientation/consciousness: patient oriented x3 Resp Effort & Inspection: normal respiratory effort, able to speak in complete sentences, no tracheal deviation and symmetric chest movement Auscultation: clear to auscultation bilaterally Cardio Rate: regular rate GI Inspection: Yes normal to inspection, No distended and Yes obesity Palpation (GI): Soft to palpation, not firm, nontender and No hepatosplenomegaly present Auscultation: normal bowel sounds General: Yes no CVA tenderness Back/Spine/Pelvis Back: no CVA tenderness Skin General skin exam: elasticity normal, turgor normal and dry skin Neuro General: patient oriented x3 Psych Appearance: grossly normal Mental Status: mental status grossly normal Results Reviewed Results Reviewed: BARIUM SWALLOW 12/02/2023 FL/FL barium swallow IMPRESSION: 1. Trace laryngeal penetration with thick barium. No gross aspiration to the glottis. 2. Moderate cricopharyngeal achalasia. 3. Patulous esophagus with subtle irregular mucosal appearance which may represent ulcerative/erosive esophagitis. Disordered motility. 4. Moderate-sized sliding type hiatal hernia. 5. A stricture of the gastric fundus, distal to the hiatal hernia is present resulting in air-fluid level within the hiatal hernia and slow passage of barium into the distal stomach. This likely represents a benign/postsurgical stricture and is the likely cause the patient's regurgitation and recurrent hernia. 6. Unusual appearance of the gastric mucosa in the mid and distal body/antrum that retains contrast. This may represent multiple areas of grouped superficial ulcerations, however, early neoplasm in this area cannot be excluded. Correlation with EGD is highly recommended. Assessment & Plan Assessment & Plan (1) Cricopharyngeal achalasia: Code(s): K22.0 - Achalasia of cardia (2) Sliding hiatal hernia: Code(s): K44.9 - Diaphragmatic hernia without obstruction or gangrene (3) Dysphagia: Code(s): R13.10 - Dysphagia, unspecified Qualifiers: Dysphagia type: oropharyngeal phase Qualified Code(s): R13.12 - Dysphagia, oropharyngeal phase (4) Dyspepsia: Code(s): R10.13 - Epigastric pain (5) GERD (gastroesophageal reflux disease): Code(s): K21.9 - Gastro-esophageal reflux disease without esophagitis Qualifiers: Esophagitis presence: esophagitis presence not specified Qualified Code(s): K21.9 - Gastro-esophageal reflux disease without esophagitis (6) Postprandial epigastric pain: Code(s): R10.13 - Epigastric pain Plan As above mentioned in HPI patient has recurrent sliding hiatal hernia, cricopharyngeal achalasia. Patient will be sent for upper endoscopy I will see her after the procedure for possible stretching of the esophagus, biopsies to rule out gastritis, duodenitis, esophagitis, H pylori, Puga's. Referral to thoracic surgeon sent. Spoke with Dr. Mccarty. CT of the chest ordered. Aspiration precautions discussed with patient. Eating slowly and chewing all her food discussed with patient. Patient will take Nexium daily half an hour before breakfast. Staying upright for minimum 3 hours after meals discussed with patient. Eating small meals, avoiding dietary triggers. Patient is agreeable to this plan and verbalizes understanding of instructions. She was given the opportunity to ask questions and all questions answered. Thank you for allowing me to participate in her care Orders: Orders CT chest wo IV con Today K22.0 - Achalasia of cardia, K44.9 - Diaphragmatic hernia without obstruction or gangrene Referrals Thoracic Surgery Referral K22.0 - Achalasia of cardia, K44.9 - Diaphragmatic hernia without obstruction or gangrene Coding Level of Care Code Est Pt Level 5 (71509) Diagnoses Cricopharyngeal achalasia K22.0 Sliding hiatal hernia K44.9 Oropharyngeal dysphagia R13.12 Dysphagia type: oropharyngeal phase Dyspepsia R10.13 Gastroesophageal reflux disease, unspecified whether esophagitis present K21.9 Esophagitis presence: esophagitis presence not specified Postprandial epigastric pain R10.13 Time Spent (min) 50 Comment 30 minutes spent with patient and additional 20 minutes spent reviewing her records
[2023-12-14 13:34] VITALS: BP 162/79; PULSE 62; O2SAT 99; BMI 31.0
== END 2023-12-14 14:50 | disposition home or self-care (01) ==
PROVIDERS: PCP Internal Medicine; Visit Provider Nurse Practitioner Family
DX: K22.0 Achalasia of cardia (principal); R13.12 Dysphagia, oropharyngeal phase; K21.9 Gastro-esophageal reflux disease without esophagitis
CPT/HCPCS: 99214

== ENCOUNTER → 2023-12-14 13:30 | Outpatient (BNVA) | payer MEDICARE, OTHER, SELFPAY | PROVIDERS: PCP Internal Medicine; Visit Provider Nurse Practitioner Family | DX: K22.0 Achalasia of cardia (principal); K44.9 Diaphragmatic hernia without obstruction or gangrene; R13.12 Dysphagia, oropharyngeal phase; R10.13 Epigastric pain; K21.9 Gastro-esophageal reflux disease without esophagitis | CPT/HCPCS: 99212 ==

== ENCOUNTER 2023-12-27 11:14 | Outpatient (REF) | payer MEDICARE, OTHER, SELFPAY ==
[2023-12-27 11:41] LABS: MANUAL DIFF FLAG NO
[2023-12-27 11:51] LABS: Basophils Absolute Auto 0.1 X10*3/uL (0.0-0.2); Basophils Percent Auto 0.8 % (0-2); Eosinophils Absolute Auto 0.2 X10*3/uL (0.0-0.4); Eosinophils Percent Auto 2.7 % (0-4); Hematocrit 39.6 % (37.0-47.0); Hemoglobin 13.3 g/dl (12.0-16.0); Imm Gran Abs Auto 0.02 X10*3/uL (0.00-0.03); Imm Gran Pct Auto 0.3 % (0.0-0.4); Lymphocytes Percent Auto 31.2 % (20-40); Mean Corpuscular HGB Conc 33.6 g/dl (31.0-35.0); Mean Corpuscular Hemoglobin 29.2 pg (27.0-33.0); Mean Platelet Volume 10.1 fL (9.4-12.3); Monocytes Absolute Auto 0.5 X10*3/uL (0.1-1.2); Monocytes Percent Auto 7.7 % (2-11); Neutrophils Absolute Auto 3.7 x10*3/uL (2.0-8.3); Neutrophils Percent Auto 57.3 % (45-73); Platelet Count 222 X10*3/uL (160-400); Red Blood Count 4.55 X10*6/uL (4.20-5.50); Red Cell Distribution Width 11.9 % (11.0-16.0); White Blood Count 6.4 X10*3/uL (4.8-10.8)
[2023-12-27 12:04] LABS: Estimated Average Glucose 143 mg/dL; Hemoglobin A1c % 6.6 % (<6.0)
[2023-12-27 12:58] LABS: Alanine Aminotransferase 21 U/L (0-31); Albumin Level 3.7 g/dL (3.5-5.0); Alkaline Phosphatase 51 U/L (39-117); Anion Gap 11 (12-20); Aspartate Amino Transferase 24 U/L (5-31); Bilirubin Total 0.5 mg/dL (0.0-1.0); Blood Urea Nitrogen 10 mg/dL (9-16); Calcium 9.3 mg/dL (8.4-10.2); Carbon Dioxide 27 mmol/L (22-29); Chloride 107 mmol/L (96-108); Cholesterol 106 mg/dL (<200); Estimated Glomerular Filt Rate > 60; Glucose Fasting 146 mg/dL (60-99); HDL Cholesterol 43 mg/dL (>40); LDL Cholesterol Calculated 36 mg/dL (<100); Potassium 3.8 mmol/L (3.3-5.1); Sodium 141 mmol/L (135-145); Total Protein 6.7 g/dL (6.5-8.0); Triglycerides 138 mg/dL (<150)
[2023-12-27 13:15] LABS: Thyroid Stimulating Hormone 0.07 uIU/mL (0.32-4.0)
== END 2023-12-27 11:15 | disposition home or self-care (01) ==
LOC: HO.LAB 11:14
PROVIDERS: PCP Internal Medicine; Visit Provider Internal Medicine
DX: E03.9 Hypothyroidism, unspecified (principal); E78.5 Hyperlipidemia, unspecified; R73.9 Hyperglycemia, unspecified; N28.9 Disorder of kidney and ureter, unspecified; D64.9 Anemia, unspecified
CPT/HCPCS: 36415; 80053; 80061; 83036; 84443; 85025

== ENCOUNTER → 2023-12-28 13:13 | Day surgery (SDC) | payer MEDICARE, OTHER, SELFPAY ==
--- NOTE | 2023-12-27 13:33 | HO.ANESPROP2 ---
HPI - Anesthesia Eval Consult details Narrative: 73yo F for Upper Endoscopy [facility] for [place]. Stable at last office visit 07/2023 Anesthesia Pre-Procedure Meds Is the patient on any of the following meds?: Any other SGL-1 drugs or drugs that delay gastric emptying (Exenatide ) [facility] Active Problems Active Problems: All Active Problems (Updated 12/14/23 @ 16:42 by Linda Melgar [facility]) Dysphagia (Acute) Screening for colon cancer (Acute) Diabetes mellitus with coincident hypertension (Acute) Osteoarthritis of carpometacarpal joint of left thumb (Acute) Hypoglycemia unawareness associated with type 2 diabetes mellitus (Acute) Hyperlipidemia associated with type 2 diabetes mellitus (Acute) First degree heart block (Acute) Atherosclerotic cardiovascular disease (Acute) Obesity (Acute) Ankle edema (Acute) Adult general medical exam (Acute) Post-menopausal (Acute) Screening for breast cancer (Acute) Incarcerated paraesophageal hernia (Acute) Hiatal hernia (Acute) Primary osteoarthritis of right knee (Acute) Primary osteoarthritis of left knee (Acute) Preoperative cardiovascular examination (Acute) Type 2 diabetes mellitus with unspecified complications (Acute) Essential hypertension (Acute) Other and unspecified hyperlipidemia (Acute) Diabetic polyneuropathy associated with type 2 diabetes mellitus (Acute) Diabetes type 2, uncontrolled (Acute) Obesity (BMI 30-39.9) (Acute) Hypertension (Acute) Hypothyroidism (Acute) 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 (Acute) 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 (Acute) Past Medical History Medical History (Updated 12/14/23 @ 16:42 by Linda Melgar [facility]) Dysphagia Hypoglycemia unawareness associated with type 2 diabetes mellitus Hyperlipidemia associated with type 2 diabetes mellitus Obesity Post-menopausal Screening for breast cancer Dizziness Pre-op exam IDDM (insulin dependent diabetes mellitus) Pre-op exam Diabetic polyneuropathy associated with type 2 diabetes mellitus Obesity (BMI 30-39.9) Hypertension Hypothyroidism 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 Diabetes type 2, uncontrolled Family History Family History Brother Diabetes Father Lung cancer Mother HTN (hypertension) Surgical History Surgical History History of colonoscopy History of repair of hiatal hernia History of cardiac catheterization Hx of hammer toe correction Hx of shoulder surgery Hx of tonsillectomy Hx laparoscopic cholecystectomy Hx of appendectomy Social History Social History Household Members: Family Housing: House Do you presently have visiting nurse or other home services: No Alcohol intake: current Alcohol intake frequency: holidays/special occasions only Patient Tobacco Use Status: Former Tobacco user Tobacco use type: Cigarette Years Smoked: 20 e-Cigarette/Vaping Use: Never Used Second Hand Smoke Exposure: No service: No Current occupational status: retired Cognitive needs: No Hearing needs: No Vision needs: Yes (Glasses) Meds Allergies Allergy/AdvReac Type Severity Reaction Status Date / Time hydrocodone [From VICODIN] Allergy Unknown HEADACHE Verified 12/14/23 13:34 oxycodone [OXYCODONE] Allergy Unknown HIVES Verified 12/14/23 13:34 procaine [From NOVOCAIN] Allergy Unknown FAINTED Verified 12/14/23 13:34 Home Medications Medication Instructions Recorded Confirmed Last Taken Type aspirin 81 mg tablet,delayed 81 mg PO DAILY 02/27/21 09/20/23 Unknown History release cholecalciferol (vitamin D3) 25 25 mcg PO DAILY 02/27/21 09/20/23 Unknown History mcg (1,000 unit) capsule multivitamin 1 tab PO DAILY 02/27/21 09/20/23 Unknown History fish, borage, flaxseed oils-omega 1 cap PO DAILY 10/26/23 Unknown History 3,6,9 cb #1 400 mg-400 mg-400 mg cap niacin 50 mg tablet 50 mg PO BEDTIME 10/26/23 Unknown History Exam Pertinent Lab Results Pertinent Lab Results: Laboratory Tests 12/27/23 11:39 WBC 6.4 Hgb 13.3 Hct 39.6 Plt Count 222 Sodium 141 Potassium 3.8 Chloride 107 Carbon Dioxide 27 BUN 10 Creatinine 0.84 Narrative Narrative: EKG 07/2023 sinus rhythm at 81/Min; cannot exclude old anterior infarct; slight WA prolongation to 220 milliseconds; normal corrected QT. Per 07/2023 cardiology office visit note: Cardiac catheterization from 2018 with 60% stenosis in the ostial PLV branch, but otherwise unremarkable. Echocardiogram with LVEF of 65-70% with mild diastolic dysfunction. [place] barium swallow 11/2023 IMPRESSION: 1. Trace laryngeal penetration with thick barium. No gross aspiration to the glottis. 2. Moderate cricopharyngeal achalasia. 3. Patulous esophagus with subtle irregular mucosal appearance which may represent ulcerative/erosive esophagitis. Disordered motility. 4. Moderate-sized sliding type hiatal hernia. 5. A stricture of the gastric fundus, distal to the hiatal hernia is present resulting in air-fluid level within the hiatal hernia and slow passage of barium into the distal stomach. This likely represents a benign/postsurgical stricture and is the likely cause the patient's regurgitation and recurrent hernia. 6. Unusual appearance of the gastric mucosa in the mid and distal body/antrum that retains contrast. This may represent multiple areas of grouped superficial ulcerations, however, early neoplasm in this area cannot be excluded. Correlation with EGD is highly recommended. Assessment and Plan Assessment Anesthesia Assessment: Chart Reviewed
--- NOTE | 2023-12-28 13:40 | PC.NURSE ---
Pt last had Byetta injection on Tuesday. Dr. Villalba and Inez at bedside explaining to pt she will need to be rescheduled.
== END ==
PROVIDERS: PCP Internal Medicine; Visit Provider Internal Medicine Gastroenterology
DX: R13.10 Dysphagia, unspecified (principal); Z53.8 Procedure and treatment not carried out for other reasons

== ENCOUNTER 2024-01-02 14:09 | Outpatient (AMB) | payer MEDICARE, OTHER, SELFPAY ==
[2024-01-02 14:12] VITALS: BP 124/64; PULSE 65; O2SAT 99; BMI 31.6
--- NOTE | 2024-01-02 14:12 | A.OFFPC_ITS ---
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 Mechanic: Not Required per policy Accompanied by: Self / Same As Patient Allergies hydrocodone [From VICODIN] Allergy (Unknown, Verified 01/02/24 14:13) HEADACHE oxycodone [OXYCODONE] Allergy (Unknown, Verified 01/02/24 14:13) HIVES procaine [From NOVOCAIN] Allergy (Unknown, Verified 01/02/24 14:13) FAINTED Medication List - Last Reconciled 01/03/24 by Buddy Morrow MD amitriptyline 25 mg PO DAILY aspirin 81 mg PO DAILY blood sugar diagnostic (Accu-Chek SmartView Test Strips) As directed blood sugar diagnostic (FreeStyle Precision Hilton Strips) As directed blood sugar diagnostic (Accu-Chek Francoise Plus test strips) As directed twice a day cholecalciferol (vitamin D3) 25 mcg PO DAILY esomeprazole magnesium (Nexium) 40 mg PO DAILY exenatide microspheres ER 2 mg (0.85 mL) subcut QWEEK 90 days fish,bora,flax oils-om3,6,9no1 400-400-400 mg 1 cap PO DAILY gabapentin 600 mg PO TID levothyroxine 112 mcg PO DAILY metformin 1,000 mg PO DAILY methylcellulose (laxative) (Citrucel) 500 mg PO DAILY metoprolol tartrate 25 mg PO DAILY multivitamin 1 tab PO DAILY niacin 50 mg PO BEDTIME sennosides (Natural Senna Laxative) 17.2 mg (2 x 8.6 mg) PO BEDTIME simvastatin 40 mg PO BEDTIME 90 days Tobacco use date assessed: 01/02/24 Fall risk assessment: 1 Fall in past year Last assessed Fall Risk: 02/01/24 Dental Screening Dental Screen Date: 01/02/24 Did you have a dental visit in the last 12 months?: Yes Did you have a dental problem in the last 6 months where you did not have access to dental care?: No Was dental information given to patient?: Patient has dentist HPI 3 mth f/u HPI Details DM hypothyroidism and hyperlipidemia; stable; TSH low and rx to be adjusted [facility] Medical History (Updated 12/14/23 @ 16:42 by Linda Melgar, [facility]-) Dysphagia Hypoglycemia unawareness associated with type 2 diabetes mellitus Hyperlipidemia associated with type 2 diabetes mellitus Obesity Post-menopausal Screening for breast cancer Dizziness Pre-op exam IDDM (insulin dependent diabetes mellitus) Pre-op exam Diabetic polyneuropathy associated with type 2 diabetes mellitus Obesity (BMI 30-39.9) Hypertension Hypothyroidism 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 [facility] (current) use of insulin Diabetes type 2, uncontrolled Surgical History History of colonoscopy History of repair of hiatal hernia History of cardiac catheterization Hx of hammer toe correction Hx of shoulder surgery Hx of tonsillectomy Hx laparoscopic cholecystectomy Hx of appendectomy Family History Brother Diabetes Father Lung cancer Mother HTN (hypertension) Social History Household Members: Family Housing: House Do you presently have visiting nurse or other home services: No Alcohol intake: current Alcohol intake frequency: holidays/special occasions only Patient Tobacco Use Status: Former Tobacco user Tobacco use type: Cigarette Years Smoked: 20 e-Cigarette/Vaping Use: Never Used Second Hand Smoke Exposure: No service: No Current occupational status: retired Cognitive needs: No Hearing needs: No Vision needs: Yes (Glasses) Questionnaire PHQ-9 Over the last 2 weeks, how often have you been bothered by any of the following problems? 1. Little interest or pleasure in doing things: several days 2. Feeling down, depressed, or hopeless: not at all 3. Trouble falling or staying asleep, or sleeping too much: more than half the days 4. Feeling tired or having little energy: several days 5. Poor appetite or overeating: more than half the days 6. Feeling bad about yourself - or that you are a failure or have let yourself or your family down: not at all 7. Trouble concentrating on things, such as reading the newspaper or watching television: not at all 8. Moving or speaking so slowly that other people could have noticed. Or the opposite - being so fidgety or restless that you have been moving around a lot more than usual: not at all 9. Thoughts that you would be better off or of hurting yourself in some way: not at all Total score: 6 Depression Screening Interpretation: Negative Depression Screening Done: Yes 64850 - PHQ-9 Billing: Yes Source: Developed by Drs. Hugh Sanon, Kajal Fuentes, Sam Padgett and colleagues, with an educational melissa from [employer]. Thrive Questionnaire Date Thrive assessed: 01/02/24 I am a: Patient What is your living situation today?: I have a steady place to live Within the past 12 months, did the food you bought not last and you didn't have the money to get more?: Never true Within the past 12 months, did you worry whether your food would run out before you got money to buy more?: Never true Do you have trouble paying for medicines?: No Do you have trouble getting transportation to medical appointments?: No Do you have trouble paying your heating and electricity bill?: No Do you have trouble taking care of your child, family member or friend?: No Do you have trouble with day-to-day activities such as bathing, preparing meals, shopping, managing finances, etc.?: No Are you currently unemployed and looking for a job?: No Are you interested in more education?: No Please select the resources that you would like help with: None THRIVE Score: 0 AUDIT C Alcohol Use Questionnaire (AUDIT-C) 1. How often do you have a drink containing alcohol?: Monthly or less 2. How many drinks containing alcohol do you have on a typical day when you are drinking?: 1 or 2 3. How often do you have six or more drinks on one occasion?: Never Total Score: 1 Score Reviewed/Action Taken: No GHAZAL-7 AMB Questionnaire GHAZAL-7 Date GHAZAL - 7 assessed: 01/02/24 Feeling nervous, anxious, or on edge: 0 = Not at all Not being able to stop or control worryin = Not at all Worrying too much about different things: 0 = Not at all Trouble relaxin = Not at all Being so restless that it is hard to sit still: 0 = Not at all Becoming easily annoyed or irritable: 0 = Not at all Feeling afraid as if something awful might happen: 0 = Not at all Total GHAZAL-7 score (0-4 normal; 5-9 mild; 10-14 moderate; 15-21 severe): 0 Source: Developed by Drs. Hugh Sanon, Kajal Fuentes, Sam Padgett and colleagues, with an educational melissa from [employer]. GHAZAL-7 Assessment Billing GHAZAL-7 Assessment Tool: GHAZAL-7 Assessment 99103 Review of Systems Const Denies chills, Denies headache(s) and Denies weight loss ENT Denies headache(s) Card Denies chest pain, Denies syncope, Denies irregular heart rhythm and Denies dyspnea Resp Denies chest congestion, Denies cough and Denies dyspnea GI Denies abdominal pain, Denies change in stool character, Denies nausea and Denies vomiting Musc Denies deformity and Denies joint swelling Neuro Denies syncope and Denies headache(s) Physical exam (Primary Care) Vital Signs: Last Vital Signs Pulse 65 01/02/24 14:12 BP 124/64 01/02/24 14:12 Pulse Ox 99 01/02/24 14:12 Oxygen Delivery Method Room Air 01/02/24 14:12 BMI result Body Mass Index 31.6 Tobacco/Smoking Status: Tobacco use Status Tobacco use date assessed 01/02/24 01/02/24 14:13 Patient Tobacco Use Status Former Tobacco user 01/02/24 14:12 Tobacco use type Cigarette 01/02/24 14:12 e-Cigarette/Vaping Use Never Used 01/02/24 14:12 PHQ-9: PHQ-9 Score PHQ-9: Total score 6 01/02/24 14:19 Depression Screening Interpretation: Negative Thrive Assessment: Date of Thrive Assessment Date Thrive assessed 01/02/24 01/02/24 14:19 Const General: cooperative, comfortable, no acute distress and alert Neck Neck: Yes no lymphadenopathy Thyroid: Thyroid normal Resp Effort & Inspection: normal respiratory effort Auscultation: clear to auscultation bilaterally Percussion: percussion normal Cardio Jugular venous distension: no JVD Palpation: normal PMI Rate: regular rate Rhythm: regular rhythm Heart sounds: S1 normal heart sound present and S2 normal heart sound present GI Inspection: Yes normal to inspection Palpation (GI): No hepatosplenomegaly present Skin General skin exam: no rashes or lesions noted Extrem General: Yes no clubbing, cyanosis or edema Assessment and Plan Assessment & Plan (1) Diabetes mellitus with coincident hypertension: Code(s): E11.9 - Type 2 diabetes mellitus without complications; I10 - Essential (primary) hypertension Plan: stable; same rx (2) Hyperlipidemia associated with type 2 diabetes mellitus: Code(s): E11.69 - Type 2 diabetes mellitus with other specified complication; E78.5 - Hyperlipidemia, unspecified Plan: stable; same rx (3) Hypothyroidism: Code(s): E03.9 - Hypothyroidism, unspecified Qualifiers: Hypothyroidism type: acquired Qualified Code(s): E03.9 - Hypothyroidism, unspecified Plan: dose decreased Orders: Orders Lipid Panel Today E78.5 - Hyperlipidemia, unspecified Complete Blood Count Auto Diff Today D64.9 - Anemia, unspecified Comprehensive [place]. Panel Fast Today N28.9 - Disorder of kidney and ureter, unspecified Microalbumin, Random (w Creat) Today E11.69 - Type 2 diabetes mellitus with other specified complication, E66.01 - Morbid (severe) obesity due to excess calories Thyroid Stimulating Hormone Today E03.9 - Hypothyroidism, unspecified Thyroid Stimulating Hormone 02/ E03.9 - Hypothyroidism, unspecified Hemoglobin A1c Today R73.9 - Hyperglycemia, unspecified Medications: New levothyroxine 112 mcg PO DAILY 90 caps 3RF Discontinued levothyroxine Discontinued Reason: None 125 mcg PO DAILY 90 tabs 11RF E03.9 - Hypothyroidism, unspecified Coding Level of Care Code Est Pt Level 4 (91288) Diagnoses Diabetes mellitus with coincident hypertension E11.9; I10 Hyperlipidemia associated with type 2 diabetes mellitus E11.69; E78.5 Acquired hypothyroidism E03.9 Hypothyroidism type: acquired Additional Codes GHAZAL-7 Assessment Billing - GHAZAL-7 Assessment Tool: GHAZAL-7 Assessment [id number] ([id number])
== END 2024-01-02 14:38 | disposition home or self-care (01) ==
PROVIDERS: PCP Internal Medicine; Visit Provider Internal Medicine
DX: E11.9 Type 2 diabetes mellitus without complications (principal); I10 Essential (primary) hypertension; E11.69 Type 2 diabetes mellitus with other specified complication; E78.5 Hyperlipidemia, unspecified; E03.9 Hypothyroidism, unspecified
CPT/HCPCS: 99214

== ENCOUNTER 2024-01-04 12:38 | Day surgery (SDC) | payer MEDICARE, OTHER, SELFPAY ==
--- NOTE | 2024-01-03 11:54 | HO.ANESPROP2 ---
Documented by User: Nickie Zurita NP 01/03/24 11:56 HPI - Anesthesia Eval Consult details Narrative: 73yo F for Upper Endoscopy Previously cx'd d/t GLP1 Follows [facility] [place] cardiology for CAD. Stable at last office visit 07/2023 Anesthesia Pre-Procedure Meds Is the patient on any of the following meds?: Any other SGL-1 drugs or drugs that delay gastric emptying (Exenatide ) [facility] Active Problems Active Problems: All Active Problems (Updated 12/14/23 @ 16:42 [facility]) Dysphagia (Acute) Screening for colon cancer (Acute) Diabetes mellitus with coincident hypertension (Acute) Osteoarthritis of carpometacarpal joint of left thumb (Acute) Hypoglycemia unawareness associated with type 2 diabetes mellitus (Acute) Hyperlipidemia associated with type 2 diabetes mellitus (Acute) First degree heart block (Acute) Atherosclerotic cardiovascular disease (Acute) Obesity (Acute) Ankle edema (Acute) Adult general medical exam (Acute) Post-menopausal (Acute) Screening for breast cancer (Acute) Incarcerated paraesophageal hernia (Acute) Hiatal hernia (Acute) Primary osteoarthritis of right knee (Acute) Primary osteoarthritis of left knee (Acute) Preoperative cardiovascular examination (Acute) Type 2 diabetes mellitus with unspecified complications (Acute) Essential hypertension (Acute) Other and unspecified hyperlipidemia (Acute) Diabetic polyneuropathy associated with type 2 diabetes mellitus (Acute) Diabetes type 2, uncontrolled (Acute) Obesity (BMI 30-39.9) (Acute) Hypertension (Acute) Hypothyroidism (Acute) 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 (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 (Acute) Past Medical History Medical History (Updated 12/14/23 @ 16:42 by CLAIRE Ellis) Dysphagia Hypoglycemia unawareness associated with type 2 diabetes mellitus Hyperlipidemia associated with type 2 diabetes mellitus Obesity Post-menopausal Screening for breast cancer Dizziness Pre-op exam IDDM (insulin dependent diabetes mellitus) Pre-op exam Diabetic polyneuropathy associated with type 2 diabetes mellitus Obesity (BMI 30-39.9) Hypertension Hypothyroidism 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 Diabetes type 2, uncontrolled Family History Family History Brother Diabetes Father Lung cancer Mother HTN (hypertension) Surgical History Surgical History History of colonoscopy History of repair of hiatal hernia History of cardiac catheterization Hx of hammer toe correction Hx of shoulder surgery Hx of tonsillectomy Hx laparoscopic cholecystectomy Hx of appendectomy Social History Social History Household Members: Family Housing: House Do you presently have visiting nurse or other home services: No Alcohol intake: current Alcohol intake frequency: does not drink Patient Tobacco Use Status: Former Tobacco user Tobacco use type: Cigarette Years Smoked: 20 e-Cigarette/Vaping Use: Never Used Second Hand Smoke Exposure: No Are you DNR?: No Advance Directives: No Advance Directives Information Provided: Yes service: No Current occupational status: retired Cognitive needs: No Hearing needs: No Vision needs: Yes (Glasses) Meds Allergies Allergy/AdvReac Type Severity Reaction Status Date / Time hydrocodone [From VICODIN] Allergy Unknown HEADACHE Verified 01/02/24 14:13 oxycodone [OXYCODONE] Allergy Unknown HIVES Verified 01/02/24 14:13 procaine [From NOVOCAIN] Allergy Unknown FAINTED Verified 01/02/24 14:13 Home Medications Medication Instructions Recorded Confirmed Last Taken Type aspirin 81 mg tablet,delayed 81 mg PO DAILY 02/27/21 01/03/24 12/29/23 History release cholecalciferol (vitamin D3) 25 25 mcg PO DAILY 02/27/21 01/03/24 12/29/23 History mcg (1,000 unit) capsule multivitamin 1 tab PO DAILY 02/27/21 01/03/24 Unknown History fish, borage, flaxseed oils-omega 1 cap PO DAILY 10/26/23 01/03/24 12/29/23 History 3,6,9 cb #1 400 mg-400 mg-400 mg cap niacin 50 mg tablet 50 mg PO BEDTIME 10/26/23 01/03/24 Unknown History Exam Pertinent Lab Results Pertinent Lab Results: Laboratory Tests 12/27/23 11:39 WBC 6.4 Hgb 13.3 Hct 39.6 Plt Count 222 Sodium 141 Potassium 3.8 Chloride 107 Carbon Dioxide 27 BUN 10 Creatinine 0.84 Narrative Narrative: EKG 07/2023 sinus rhythm at 81/Min; cannot exclude old anterior infarct; slight AL prolongation to 220 milliseconds; normal corrected QT. Per 07/2023 cardiology office visit note: Cardiac catheterization from 2018 with 60% stenosis in the ostial PLV branch, but otherwise unremarkable. Echocardiogram with LVEF of 65-70% with mild diastolic dysfunction. FL barium swallow 11/2023 IMPRESSION: 1. Trace laryngeal penetration with thick barium. No gross aspiration to the glottis. 2. Moderate cricopharyngeal achalasia. 3. Patulous esophagus with subtle irregular mucosal appearance which may represent ulcerative/erosive esophagitis. Disordered motility. 4. Moderate-sized sliding type hiatal hernia. 5. A stricture of the gastric fundus, distal to the hiatal hernia is present resulting in air-fluid level within the hiatal hernia and slow passage of barium into the distal stomach. This likely represents a benign/postsurgical stricture and is the likely cause the patient's regurgitation and recurrent hernia. 6. Unusual appearance of the gastric mucosa in the mid and distal body/antrum that retains contrast. This may represent multiple areas of grouped superficial ulcerations, however, early neoplasm in this area cannot be excluded. Correlation with EGD is highly recommended. 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-) Dysphagia Hypoglycemia unawareness associated with type 2 diabetes mellitus Hyperlipidemia associated with type 2 diabetes mellitus Obesity Post-menopausal Screening for breast cancer Dizziness Pre-op exam IDDM (insulin dependent diabetes mellitus) Pre-op exam Diabetic polyneuropathy associated with type 2 diabetes mellitus Obesity (BMI 30-39.9) Hypertension Hypothyroidism 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 [facility] (current) use of insulin Diabetes type 2, uncontrolled Family History Family History Brother Diabetes Father Lung cancer Mother HTN (hypertension) Family history of problems with anesthesia: No Surgical History Surgical History History of colonoscopy History of repair of hiatal hernia History of cardiac catheterization Hx of hammer toe correction Hx of shoulder surgery Hx of tonsillectomy Hx laparoscopic cholecystectomy Hx of appendectomy History of Problems with Anesthesia: No Social History Social History Household Members: Family Housing: House Do you presently have visiting nurse or other home services: No Alcohol intake: current Alcohol intake frequency: does not drink Patient Tobacco Use Status: Former Tobacco user Tobacco use type: Cigarette Years Smoked: 20 e-Cigarette/Vaping Use: Never Used Second Hand Smoke Exposure: No Are you DNR?: No Advance Directives: No Advance Directives Information Provided: Yes service: No Current occupational status: retired Cognitive needs: No Hearing needs: No Vision needs: Yes (Glasses) Meds Allergies Allergy/AdvReac Type Severity Reaction Status Date / Time hydrocodone [From VICODIN] Allergy Unknown HEADACHE Verified 01/02/24 14:13 oxycodone [OXYCODONE] Allergy Unknown HIVES Verified 01/02/24 14:13 procaine [From NOVOCAIN] Allergy Unknown FAINTED Verified 01/02/24 14:13 Home Medications Medication Instructions Recorded Confirmed Last Taken Type aspirin 81 mg tablet,delayed 81 mg PO DAILY 02/27/21 01/03/24 12/29/23 History release cholecalciferol (vitamin D3) 25 25 mcg PO DAILY 02/27/21 01/03/24 12/29/23 History mcg (1,000 unit) capsule multivitamin 1 tab PO DAILY 02/27/21 01/03/24 Unknown History fish, borage, flaxseed oils-omega 1 cap PO DAILY 10/26/23 01/03/24 12/29/23 History 3,6,9 cb #1 400 mg-400 mg-400 mg cap niacin 50 mg tablet 50 mg PO BEDTIME 10/26/23 01/03/24 Unknown History Exam Airway Mallampati Class: III TM Dist: >3cm Neck ROM: Full Assessment and Plan Assessment Anesthesia Assessment: Anesthesia Plan Discussed Final Anesthetic Review Family History of Problems with Anesthesia: No History of Problems with Anesthesia: No NPO: Yes ASA Class: III Final Preanesthetic Review: No Changes in Pt Med Stat, Meds/Allgs Chart Reviewed, Consent Obtained/Reviewed and Anes Risks/Benef Reviewed Patient Risk: Intermediate Procedure Risk: Low Anesthetic Plan Anesthetic Plan: TIVA Disposition: Standard PACU
[2024-01-04 12:53] VITALS: BP 110/56; PULSE 82; RESP 18; O2SAT 98; BMI 31.6
--- NOTE | 2024-01-04 13:00 | MHC.SHP ---
Pre-Procedural Eval Section A - 24 Hr Update-Section A only Date of Service: 01/04/24 Section B - Complete if H&P > 30 days Chief Complaint: Achalasia of cardia,Epigastric pain Relevant Family History (Specify if Yes): No Relevant Social History: None Present Medications: see Short Stay Collaborative assessment Medical History: Significant History (Dysphagia Hypoglycemia unawareness associated with type 2 diabetes mellitus Hyperlipidemia associated with type 2 diabetes mellitus Obesity Post-menopausal Screening for breast cancer Dizziness Pre-op exam IDDM (insulin dependent diabetes mellitus) Pre-op exam Diabetic polyneuropathy associated with) History of Previous Operations: Relevant previous surgery/procedure and date(s) (History of colonoscopy History of repair of hiatal hernia History of cardiac catheterization Hx of hammer toe correction Hx of shoulder surgery Hx of tonsillectomy Hx laparoscopic cholecystectomy Hx of appendectomy) Allergies: Allergies Allergy/AdvReac Type Severity Reaction Status Date / Time hydrocodone [From VICODIN] Allergy Unknown HEADACHE Verified 01/02/24 14:13 oxycodone [OXYCODONE] Allergy Unknown HIVES Verified 01/02/24 14:13 procaine [From NOVOCAIN] Allergy Unknown FAINTED Verified 01/02/24 14:13 Review of Systems Sugical H&P ROS: Negative: Constitution, Cardiovascular, Respiratory, Neurological, Psychiatric, Hem-Onc, Allergic/Immunologic, Gastrointestinal, Genitourinary, Musculoskeletal, Integumentary, Endocrine and Eyes/Ears/Nose/Throat Exam Surgical H&P Exam: Normal: HEENT, Normal: Heart, Normal: Lungs, Normal: Extremities, Normal: Abdomen, Normal: Skin and Normal: Neurological Plan Diagnosis/Plan: Unchanged I have reviewed the history and physical and performed a pertinent physical examination on my patient. No changes have occurred unless specified. Time Spent With Patient Time: Total time managing care of this patient today ____ minutes.
[2024-01-04 13:09] LABS: Glucose, Whole Blood 145 mg/dL (60-115)
[2024-01-04] MEDS: Lactated Ringers 1,000 ML 100 ML IVCONT (13:23)
--- NOTE | 2024-01-04 14:24 | W.PM.OPN ---
Operative Note Operative Note Date of Service: 01/04/24 Narrative: Procedure Description: EGD Indication: dysphagia and abnormal imaging Anesthesia: MAC FLEXIBLE TRANSORAL UPPER GASTROINTESTINAL ENDOSCOPY UPPER ENDOSCOPY Consent: Indications for the procedure and potential complications of bleeding, perforation, reaction to medications and missed diagnosis were discussed with the patient and informed consent was obtained. Instrument: Olympus GIF H 190 J mid size upper endoscope Monitoring: Vital signs and clinical assessment, continuous EKG monitoring, Pulse oximetry, Carbon Dioxide monitoring and blood pressure monitoring were done throughout the procedure. Procedure: The patient was placed in the left lateral decubitis position and pre-procedure medications were administered and a bite block was placed. The endoscope was inserted into the mouth and advanced under direct vision to the third part of duodenum. A careful inspection was made as the upper endoscope was withdrawn including a retroflexed examination of the proximal stomach; Findings and interventions are described below. Findings: Larynx:normal Esophagus: GE junction at 38 cm, diaphragm hiatus at 40 cm, consistent with small sliding hernia--small amount of food noted at the GEJ with patulous appearance and sigmoid appearance, balloon dilation done to 19 mm with tear noted, UES also dilated to 19 mm, no tear seen. There appeared to be lack of motility. Bx taken from esophagus Stomach: Patchy gastric erythema. Biopsies were obtained. Grade 2 flap valve on retroflexed examination of the cardia. Few fundic gland polyps seen Duodenum: Normal bulb and descending duodenum, bx taken Intervention: Biopsies as noted above, balloon dilation Impression/Findings: esophageal stricture gastritis hiatal hernia PLAN: regular diet as tolerated can take tylenol if needed for post op discomfort or magic mouthwash if ongoing sx then refer manometry
[2024-01-04 14:29] VITALS: BP 97/38; PULSE 63; RESP 16; TEMP 36.3; O2SAT 98
[2024-01-04 14:44] VITALS: BP 113/52; PULSE 63; RESP 18; O2SAT 98
[2024-01-04 14:59] VITALS: BP 155/79; PULSE 64; RESP 18; O2SAT 98
== END 2024-01-04 16:17 | disposition home or self-care (01) ==
PROVIDERS: PCP Internal Medicine; Visit Provider Internal Medicine Gastroenterology
PROC: 0DJ08ZZ Inspection of Upper Intestinal Tract, Via Natural or Artificial Opening Endoscopic (ICD-10-PCS; CPT 43235; principal; 2024-01-04 14:00)
DX: K22.4 Dyskinesia of esophagus (principal); K22.2 Esophageal obstruction; K29.60 Other gastritis without bleeding; K44.9 Diaphragmatic hernia without obstruction or gangrene; E11.9 Type 2 diabetes mellitus without complications; E78.5 Hyperlipidemia, unspecified; I10 Essential (primary) hypertension; Z79.82 Long term (current) use of aspirin; Z79.02 Long term (current) use of antithrombotics/antiplatelets; Z79.84 Long term (current) use of oral hypoglycemic drugs
CPT/HCPCS: 43249; 43239; 82947; 88305; 88312; 88313; 88342; C1726; J2704

== ENCOUNTER → 2024-01-04 12:38 | Outpatient (BNV) | payer MEDICARE, OTHER, SELFPAY | PROVIDERS: PCP Internal Medicine; Visit Provider Internal Medicine Gastroenterology | DX: K22.2 Esophageal obstruction (principal); K20.90 Esophagitis, unspecified without bleeding; R93.3 Abnormal findings on diagnostic imaging of other parts of digestive tract | CPT/HCPCS: 43239; 43249 ==

== ENCOUNTER 2024-01-13 14:15 | Outpatient (REF) | payer MEDICARE, OTHER, SELFPAY ==
--- NOTE | ~2024-01-13 | CT_ITS ---
EXAMINATION: CT CHEST WITHOUT CONTRAST CLINICAL INFORMATION: Achalasia COMPARISON: 02/27/2021 TECHNIQUE: Multidetector volumetric CT imaging of the chest was done. Axial MIP volume rendering provided. Sagittal and coronal reformatted images were obtained. This CT examination was performed using dose optimization techniques as appropriate, variously including the following: *Automated exposure control *Adjustment of mA and/or kV according to patient size (this includes techniques or standardized protocols for targeted exams where dose is matched to indication/reason for exam; i.e. extremities or head) *Use of iterative reconstruction technique DLP: 146 mGy-cm FINDINGS: EXHIBIT CARPENTER: Dilated esophagus noted. LUNGS: Multiple thin-walled cysts are noted. No emphysema. Densities left base. The right base favoring scarring or discoid atelectasis or scarring particularly at the left base involving the inferior segment lingula as well as the lower lobe. No discrete nodule or mass. Appearance overall is very similar to the 2020 baseline study. MEDIASTINUM: Previously noted large hernia has notably improved status post bladder repair. The esophagus however remains patulous and dilated with a air-fluid level with a residual or recurrent moderate axial type hiatus hernia evident. CORONARY ARTERY CALCIFICATION: Present PLEURA: There is no pleural effusion. No pleural mass or thickening. AXILLA: No lymphadenopathy. UPPER ABDOMEN: Unremarkable. OSSEOUS STRUCTURES: Unremarkable. CT/CT chest wo IV con IMPRESSION: 1. Chronic lung changes as above. No new discrete nodule or mass. 2. Improved hiatal hernia status post repair. Residual or recurrent moderate-sized axial type hiatus hernia. 3. Patulous esophagus with air-fluid level as above. This can be seen with achalasia. 4. Coronary artery calcifications. Correlation with cardiac risk factors recommended. Fleischner guidelines were followed.
== END 2024-01-13 14:16 | disposition home or self-care (01) ==
LOC: HO.CT 14:15
PROVIDERS: PCP Internal Medicine; Visit Provider Nurse Practitioner Family
DX: K22.0 Achalasia of cardia (principal); K44.9 Diaphragmatic hernia without obstruction or gangrene
CPT/HCPCS: 71250

== ENCOUNTER 2024-01-17 14:26 | Outpatient (AMB) | payer MEDICARE, OTHER, SELFPAY ==
[2024-01-17 14:28] VITALS: BMI 31.6
--- NOTE | 2024-01-17 14:28 | A.OFFVIS_ITS ---
Intake Vital Signs 01/17/24 14:28 Height 5 ft 4 in Weight 184 lb BMI 31.6 Blood Pressure Location Lt brachial Position Sitting Intake Visit Reasons: EGD results Intake Note: Patient states she is still experiencing regurgitation and is here to follow up on EDG results. Patient Care Secretary Required: No Accompanied by: Self / Same As Patient Allergies hydrocodone [From VICODIN] Allergy (Unknown, Verified 01/17/24 14:33) HEADACHE oxycodone [OXYCODONE] Allergy (Unknown, Verified 01/17/24 14:33) HIVES procaine [From NOVOCAIN] Allergy (Unknown, Verified 01/17/24 14:33) FAINTED HPI EGD results HPI Details LAST VISIT Cricopharyngeal achalasia Sliding hiatal hernia Dysphagia Dyspepsia GERD (gastroesophageal reflux disease) Postprandial epigastric pain Plan As above mentioned in HPI patient has recurrent sliding hiatal hernia, cricopharyngeal achalasia. Patient will be sent for upper endoscopy I will see her after the procedure for possible stretching of the esophagus, biopsies to rule out gastritis, duodenitis, esophagitis, H pylori, Puga's. Referral to thoracic surgeon sent. Spoke with Dr. Mccarty. CT of the chest ordered. Aspiration precautions discussed with patient. Eating slowly and chewing all her food discussed with patient. Patient will take Nexium daily half an hour before breakfast. Staying upright for minimum 3 hours after meals discussed with patient. Eating small meals, avoiding dietary triggers. Patient is agreeable to this plan and verbalizes understanding of instructions. She was given the opportunity to ask questions and all questions answered. ? Thank you for allowing me to participate in her care Orders Orders CT chest wo IV con Today K22.0, K44.9 Referrals Thoracic Surgery Referral K22.0, K44.9 [facility] ENDOSCOPY: Findings: Larynx:normal Esophagus: GE junction at 38 cm, diaphragm hiatus at 40 cm, consistent with small sliding hernia--small amount of food noted at the GEJ with patulous appearance and sigmoid appearance, balloon dilation done to 19 mm with tear noted, UES also dilated to 19 mm, no tear seen. There appeared to be lack of motility. Bx taken from esophagus Stomach: Patchy gastric erythema. Biopsies were obtained. Grade 2 flap valve on retroflexed examination of the cardia. Few fundic gland polyps seen Duodenum: Normal bulb and descending duodenum, bx taken Intervention: Biopsies as noted above, balloon dilation Impression/Findings: esophageal stricture gastritis hiatal hernia PLAN: regular diet as tolerated can take tylenol if needed for post op discomfort or magic mouthwash if ongoing sx then refer manometry TODAY'S VISIT Patient is here today for follow-up and to discuss upper endoscopy results. Patient reports that since she was seen and since the procedure she has been feeling little better. Patient states that when she eats smaller amounts she is feeling fine, however only if she eats large meals she feels like she is soft and feels like sometimes she can regurgitate all the food. Patient states that her symptoms of acid reflux are managed well with as omeprazole. She is taking exenatide subcu that could be contributing to slowing down her gastric motility. Patient was sent to see thoracic surgeon and is awaiting for call to repair paraesophageal achalasia. Patient reports that she had dilation done during upper endoscopy and her symptoms of dysphagia have improved. Patient denies any nausea or vomiting. Reports that she has been moving her bowels without any issues. FORMERLY [facility] Medical History (Updated 12/14/23 @ 16:42 by Linda Melgar, [facility]-) Dysphagia Hypoglycemia unawareness associated with type 2 diabetes mellitus Hyperlipidemia associated with type 2 diabetes mellitus Obesity Post-menopausal Screening for breast cancer Dizziness Pre-op exam IDDM (insulin dependent diabetes mellitus) Pre-op exam Diabetic polyneuropathy associated with type 2 diabetes mellitus Obesity (BMI 30-39.9) Hypertension Hypothyroidism 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 emt intermediate (current) use of insulin Diabetes type 2, uncontrolled Surgical History History of colonoscopy History of repair of hiatal hernia History of cardiac catheterization Hx of hammer toe correction Hx of shoulder surgery Hx of tonsillectomy Hx laparoscopic cholecystectomy Hx of appendectomy Family History Brother Diabetes Father Lung cancer Mother HTN (hypertension) Social History Household Members: Family Housing: House Do you presently have visiting nurse or other home services: No Alcohol intake: current Alcohol intake frequency: does not drink Patient Tobacco Use Status: Former Tobacco user Tobacco use type: Cigarette Years Smoked: 20 e-Cigarette/Vaping Use: Never Used Second Hand Smoke Exposure: No service: No Current occupational status: retired Cognitive needs: No Hearing needs: No Vision needs: Yes (Glasses) Review of Systems Const Denies weight gain and Denies weight loss ENT Reports no additional complaints, Reports dysphagia (Occasional) and Denies odynophagia Card Reports no additional complaints Resp Reports no additional complaints GI Denies abdominal pain, Denies belching, Denies melena, Denies bloating, Denies change in bowel habits, Reports dysphagia (Occasional), Denies excessive flatus, Denies dyspepsia, Denies heartburn, Denies diarrhea, Denies loose stools, Denies nausea, Denies odynophagia and Denies vomiting Reports no additional complaints Musc Reports no additional complaints Neuro Reports no additional complaints Psych Reports no additional complaints Endo Reports no additional complaints Physical Exam Vital Signs: BMI result Body Mass Index 31.6 Const General: healthy appearing, no acute distress and well developed Nutritional Appearance: well nourished Orientation/consciousness: patient oriented x3 Resp Effort & Inspection: normal respiratory effort, able to speak in complete sentences, no tracheal deviation and symmetric chest movement Auscultation: clear to auscultation bilaterally Cardio Rate: regular rate GI Inspection: Yes normal to inspection, No distended and Yes obesity Palpation (GI): Soft to palpation, not firm, nontender and No hepatosplenomegaly present Auscultation: normal bowel sounds General: Yes no CVA tenderness Back/Spine/Pelvis Back: no CVA tenderness Skin General skin exam: elasticity normal, turgor normal and dry skin Neuro General: patient oriented x3 Psych Appearance: grossly normal Mental Status: mental status grossly normal Results Reviewed Results Reviewed: CT OF THE CHEST: IMPRESSION: 1. Chronic lung changes as above. No new discrete nodule or mass. 2. Improved hiatal hernia status post repair. Residual or recurrent moderate-sized axial type hiatus hernia. 3. Patulous esophagus with air-fluid level as above. This can be seen with achalasia. 4. Coronary artery calcifications. Correlation with cardiac risk factors recommended. Assessment & Plan Assessment & Plan (1) Dysphagia: Code(s): R13.10 - Dysphagia, unspecified Qualifiers: Dysphagia type: oropharyngeal phase Qualified Code(s): R13.12 - Dysphagia, oropharyngeal phase (2) Cricopharyngeal achalasia: Code(s): K22.0 - Achalasia of cardia (3) Sliding hiatal hernia: Code(s): K44.9 - Diaphragmatic hernia without obstruction or gangrene (4) Dyspepsia: Code(s): R10.13 - Epigastric pain (5) GERD (gastroesophageal reflux disease): Code(s): K21.9 - Gastro-esophageal reflux disease without esophagitis Qualifiers: Esophagitis presence: esophagitis presence not specified Qualified Code(s): K21.9 - Gastro-esophageal reflux disease without esophagitis (6) Postprandial epigastric pain: Code(s): R10.13 - Epigastric pain Plan Continue Nexium. Will start patient nystatin swish and swallow she can do the for 7 to 10 days. Roxie was found on upper endoscopy biopsy. Patient reports that she was not on any antibiotics recently. Will hold off on sending her for GES until patient sees thoracic surgeon. Patient will speak to her PCP about changing medications for diabetes. Suspicion of her symptoms could be caused by exenatide. Patient was encouraged all meals and more often. I will see patient in 3 months, sooner on as needed basis. Patient is agreeable to this plan and verbalizes understanding of instructions. She was given the opportunity to ask questions and all questions answered. Thank you for allowing me to participate in her care Medications: New nystatin swish and swallow 1 mL PO BID 60 mL 0RF Discontinued Magic Mouthwash Diphen/Lido/Antacid 1:1:1 Lidocaine Viscous 2 % 80mL; diphenhydramine 12.5 mg/5 mL 80mL; aluminum-mag hydrox-simeth [id number]/5mL 80mL Discontinued Reason: Doctor's Order 10 mL PO QID 240 mL 0RF Coding Level of Care Code Est Pt Level 4 (37525) Diagnoses Oropharyngeal dysphagia R13.12 Dysphagia type: oropharyngeal phase Cricopharyngeal achalasia K22.0 Sliding hiatal hernia K44.9 Dyspepsia R10.13 Gastroesophageal reflux disease, unspecified whether esophagitis present K21.9 Esophagitis presence: esophagitis presence not specified Postprandial epigastric pain R10.13 Time Spent (min) 35 Comment 20 minutes spent with patient and additional 15 minutes spent reviewing her records
== END 2024-01-17 15:36 | disposition home or self-care (01) ==
PROVIDERS: PCP Internal Medicine; Visit Provider Nurse Practitioner Family
DX: R13.12 Dysphagia, oropharyngeal phase (principal); K22.0 Achalasia of cardia; K44.9 Diaphragmatic hernia without obstruction or gangrene; R10.13 Epigastric pain; K21.9 Gastro-esophageal reflux disease without esophagitis
CPT/HCPCS: 99214

== ENCOUNTER → 2024-01-17 14:26 | Outpatient (BNVA) | payer MEDICARE, OTHER, SELFPAY | PROVIDERS: PCP Internal Medicine; Visit Provider Nurse Practitioner Family | DX: R13.12 Dysphagia, oropharyngeal phase (principal); K22.0 Achalasia of cardia; K44.9 Diaphragmatic hernia without obstruction or gangrene; K21.9 Gastro-esophageal reflux disease without esophagitis; R10.13 Epigastric pain | CPT/HCPCS: 99212 ==

== ENCOUNTER 2024-04-02 09:05 | Outpatient (REF) | payer OTHER, MEDICARE, SELFPAY ==
[2024-04-02 10:24] LABS: MANUAL DIFF FLAG NO
[2024-04-02 10:37] LABS: Basophils Absolute Auto 0.1 X10*3/uL (0.0-0.2); Eosinophils Absolute Auto 0.3 X10*3/uL (0.0-0.4); Eosinophils Percent Auto 4.2 % (0-4); Hematocrit 41.3 % (37.0-47.0); Hemoglobin 13.7 g/dl (12.0-16.0); Imm Gran Abs Auto 0.02 X10*3/uL (0.00-0.03); Imm Gran Pct Auto 0.3 % (0.0-0.4); Lymphocytes Absolute Auto 2.1 X10*3/uL (1.2-4.9); Lymphocytes Percent Auto 35.2 % (20-40); Mean Corpuscular HGB Conc 33.2 g/dl (31.0-35.0); Mean Corpuscular Hemoglobin 29.7 pg (27.0-33.0); Mean Corpuscular Volume 89.4 fL (80.0-98.0); Mean Platelet Volume 10.4 fL (9.4-12.3); Monocytes Absolute Auto 0.5 X10*3/uL (0.1-1.2); Monocytes Percent Auto 8.6 % (2-11); Neutrophils Percent Auto 50.7 % (45-73); Platelet Count 243 X10*3/uL (160-400); Red Blood Count 4.62 X10*6/uL (4.20-5.50); Red Cell Distribution Width 12.5 % (11.0-16.0)
[2024-04-02 10:50] LABS: Estimated Average Glucose 151 mg/dL; Hemoglobin A1c % 6.9 % (<6.0)
[2024-04-02 11:31] LABS: Alanine Aminotransferase 25 U/L (0-31); Albumin Level 3.8 g/dL (3.5-5.0); Alkaline Phosphatase 63 U/L (39-117); Anion Gap 16 (12-20); Aspartate Amino Transferase 27 U/L (5-31); Bilirubin Total 0.4 mg/dL (0.0-1.0); Blood Urea Nitrogen 10 mg/dL (9-16); Carbon Dioxide 28 mmol/L (22-29); Chloride 104 mmol/L (96-108); Cholesterol 157 mg/dL (<200); Estimated Glomerular Filt Rate > 60; Glucose Fasting 166 mg/dL (60-99); HDL Cholesterol 39 mg/dL (>40); LDL Cholesterol Calculated 73 mg/dL (<100); Potassium 4.4 mmol/L (3.3-5.1); Sodium 144 mmol/L (135-145); Thyroid Stimulating Hormone 0.24 uIU/mL (0.32-4.0); Triglycerides 225 mg/dL (<150)
[2024-04-02 11:34] LABS: Creatinine Urine 88.87 mg/dL; Microalbum/Creatinine Ratio Ur 11.2 ug/mg cr (<30)
== END 2024-04-02 09:06 | disposition home or self-care (01) ==
LOC: HO.HMGCLDS 09:05
PROVIDERS: PCP Internal Medicine; Visit Provider Internal Medicine
DX: E11.69 Type 2 diabetes mellitus with other specified complication (principal); E66.01 Morbid (severe) obesity due to excess calories; E03.9 Hypothyroidism, unspecified; R73.9 Hyperglycemia, unspecified; E78.5 Hyperlipidemia, unspecified; D64.9 Anemia, unspecified; N28.9 Disorder of kidney and ureter, unspecified
CPT/HCPCS: 36415; 80053; 80061; 82043; 82570; 83036; 84443; 85025

== ENCOUNTER 2024-04-03 14:05 | Outpatient (AMB) | payer MEDICARE, OTHER, SELFPAY ==
[2024-04-03 14:09] VITALS: BP 154/80; PULSE 71; O2SAT 98; BMI 32.3
--- NOTE | 2024-04-03 14:09 | MHC.PC.OV ---
Vital Signs 04/03/24 14:09 Height 5 ft 4 in Weight 188 lb BMI 32.3 BP 154/80 H Blood Pressure Location Lt brachial Position Sitting Pulse 71 Pulse Source Pulse Oximeter Pulse Oximetry (%) 98 Oxygen Delivery Method Room Air Intake Visit Reasons: 3mth f/u Improvement Intern Required: No [employer] Teacher: Not Required per policy Accompanied by: Self / Same As Patient Allergies hydrocodone [From VICODIN] Allergy (Unknown, Verified 04/03/24 14:09) HEADACHE oxycodone [OXYCODONE] Allergy (Unknown, Verified 04/03/24 14:09) HIVES procaine [From NOVOCAIN] Allergy (Unknown, Verified 04/03/24 14:09) FAINTED Medication List - Last Reconciled 04/04/24 by Buddy Morrow MD amitriptyline 25 mg PO DAILY aspirin 81 mg PO DAILY blood sugar diagnostic (Accu-Chek SmartView Test Strips) As directed blood sugar diagnostic (FreeStyle Precision Hilton Strips) As directed blood sugar diagnostic (Accu-Chek Francoise Plus test strips) As directed twice a day cholecalciferol (vitamin D3) 25 mcg PO DAILY esomeprazole magnesium (Nexium) 40 mg PO DAILY exenatide microspheres ER 2 mg (0.85 mL) subcut QWEEK 90 days fish,bora,flax oils-[id number] 400-400-400 mg 1 cap PO DAILY gabapentin 600 mg PO DAILY levothyroxine 112 mcg PO DAILY metformin 1,000 mg PO DAILY methylcellulose (laxative) (Citrucel) 500 mg PO DAILY metoprolol tartrate 25 mg PO DAILY multivitamin 1 tab PO DAILY niacin 50 mg PO BEDTIME nystatin 1 mL PO BID sennosides (Natural Senna Laxative) 17.2 mg (2 x 8.6 mg) PO BEDTIME simvastatin 40 mg PO BEDTIME 90 days Tobacco use date assessed: 01/02/24 Fall risk assessment: No Falls in past year Last assessed Fall Risk: 04/03/24 Dental Screening Dental Screen Date: 01/02/24 HPI 3mth f/u HPI Details Pre-op cataract surgery; has diabetes, hypertension' hyperlipidemia and hypothyroidism. No recent history of CAD [facility] Medical History (Updated 04/04/24 @ 12:25 by Buddy Morrow MD) Dysphagia Hypoglycemia unawareness associated with type 2 diabetes mellitus Hyperlipidemia associated with type 2 diabetes mellitus Obesity Post-menopausal Screening for breast cancer Dizziness Pre-op exam IDDM (insulin dependent diabetes mellitus) Pre-op exam Diabetic polyneuropathy associated with type 2 diabetes mellitus Obesity (BMI 30-39.9) Hypertension Hypothyroidism 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 Diabetes type 2, uncontrolled Surgical History History of colonoscopy History of repair of hiatal hernia History of cardiac catheterization Hx of hammer toe correction Hx of shoulder surgery Hx of tonsillectomy Hx laparoscopic cholecystectomy Hx of appendectomy Family History Brother Diabetes Father Lung cancer Mother HTN (hypertension) Social History Household Members: Family Housing: House Do you presently have visiting nurse or other home services: No Alcohol intake: current Alcohol intake frequency: does not drink Patient Tobacco Use Status: Former Tobacco user Tobacco use type: Cigarette Years Smoked: 20 e-Cigarette/Vaping Use: Never Used Second Hand Smoke Exposure: No service: No Current occupational status: retired Cognitive needs: No Hearing needs: No Vision needs: Yes (Glasses) Questionnaire Thrive Questionnaire Date Thrive assessed: 01/02/24 GHAZAL-7 AMB Questionnaire GHAZAL-7 Date GHAZAL - 7 assessed: 01/02/24 Source: Developed by Drs. Hugh Sanon, Kajal Fuentes, Sam Padgett and colleagues, with an educational melissa from [employer]. Review of Systems Const Denies chills, Denies fatigue, Denies headache(s) and Denies weight loss Eyes Denies change in vision, Denies diplopia and Denies eye pain ENT Denies vertigo, Denies dizziness, Denies headache(s) and Denies nasal discharge Card Denies chest pain, Denies rapid heart rate and Denies dyspnea on exertion Resp Denies chest congestion, Denies cough, Denies pain with cough and Denies dyspnea on exertion GI Denies abdominal pain, Denies hematochezia and Denies change in bowel habits Musc Denies myalgias, Denies arthralgias and Denies joint swelling Skin/Breast Denies lesions and Denies unusual bruising Neuro Denies vertigo, Denies dizziness, Denies headache(s) and Denies focal weakness Endo Denies fatigue Physical exam (Primary Care) Vital Signs: Last Vital Signs Pulse 71 04/03/24 14:09 BP 154/80 H 04/03/24 14:09 Pulse Ox 98 04/03/24 14:09 Oxygen Delivery Method Room Air 04/03/24 14:09 BMI result Body Mass Index 32.3 Tobacco/Smoking Status: Tobacco use Status Tobacco use date assessed 01/02/24 04/03/24 14:10 Patient Tobacco Use Status Former Tobacco user 04/03/24 14:10 Tobacco use type Cigarette 04/03/24 14:10 e-Cigarette/Vaping Use Never Used 04/03/24 14:10 Thrive Assessment: Date of Thrive Assessment Date Thrive assessed 01/02/24 04/03/24 14:10 Const General: cooperative, healthy appearing and no acute distress Orientation/consciousness: oriented to person, oriented to place and oriented to time HENMT Head: Yes normal to inspection, Yes normocephalic and Yes atraumatic Mouth: Normal oral and palatal mucosa present and tongue normal Throat: Yes posterior oropharynx normal and Yes uvula midline Eyes General: appearance normal, both eyes and all related structures Neck Neck: Yes normal visual inspection, Yes full ROM and Yes no lymphadenopathy Thyroid: Thyroid normal Carotids: normal carotid upstroke Chest Chest palpation & inspection: normal inspection of the chest Resp Effort & Inspection: normal respiratory effort and able to speak in complete sentences Auscultation: clear to auscultation bilaterally Cardio Jugular venous distension: no JVD Palpation: normal PMI Rate: regular rate Rhythm: regular rhythm Heart sounds: S1 normal heart sound present and S2 normal heart sound present GI Inspection: Yes normal to inspection Palpation (GI): Soft to palpation and No hepatosplenomegaly present Auscultation: normal bowel sounds General: Yes no CVA tenderness Back/Spine/Pelvis Back: no CVA tenderness Skin General skin exam: no rashes or lesions noted Neuro General: oriented to person, oriented to place and oriented to time Extrem General: Yes normal to inspection and Yes full ROM Assessment and Plan Assessment & Plan (1) Preop exam for internal medicine: Code(s): Z01.818 - Encounter for other preprocedural examination Plan: low risk of cardiovascular complications; cleared for surgery (2) Diabetes mellitus with coincident hypertension: Code(s): E11.9 - Type 2 diabetes mellitus without complications; I10 - Essential (primary) hypertension Plan: stable; same meds (3) Hyperlipidemia associated with type 2 diabetes mellitus: Code(s): E11.69 - Type 2 diabetes mellitus with other specified complication; E78.5 - Hyperlipidemia, unspecified Plan: stable; same meds (4) Essential hypertension: Code(s): I10 - Essential (primary) hypertension Plan: stable; same meds (5) Hypothyroidism: Code(s): E03.9 - Hypothyroidism, unspecified Qualifiers: Hypothyroidism type: acquired Qualified Code(s): E03.9 - Hypothyroidism, unspecified Plan: stable; same meds Coding Level of Care Code Est Pt Level 4 (46328) Diagnoses Preop exam for internal medicine Z01.818 Diabetes mellitus with coincident hypertension E11.9; I10 Hyperlipidemia associated with type 2 diabetes mellitus E11.69; E78.5 Essential hypertension I10 Acquired hypothyroidism E03.9 Hypothyroidism type: acquired
== END 2024-04-03 14:30 | disposition home or self-care (01) ==
PROVIDERS: PCP Internal Medicine; Visit Provider Internal Medicine
DX: Z01.818 Encounter for other preprocedural examination (principal); E11.9 Type 2 diabetes mellitus without complications; I10 Essential (primary) hypertension; E11.69 Type 2 diabetes mellitus with other specified complication; E78.5 Hyperlipidemia, unspecified; E03.9 Hypothyroidism, unspecified
CPT/HCPCS: 99214

== ENCOUNTER 2024-04-17 14:35 | Outpatient (AMB) | payer MEDICARE, OTHER, SELFPAY ==
--- NOTE | 2024-04-17 14:36 | MHC.OFFVIS ---
Vital Signs 04/17/24 15:00 Height 5 ft 4 in Weight 189 lb 9.561 oz BMI 32.5 BP 136/66 Blood Pressure Location Lt brachial Position Sitting Pulse 70 Pulse Oximetry (%) 94 Intake Visit Reasons: Follow up 3 months Intake Note: Miriam presents in the office as a follow up 3 month follow up. CC: She states that she recently had a motility test but not sure if you would have results yet. 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 Will start patient nystatin swish and swallow she can do the for 7 to 10 days. Roxie was found on upper endoscopy biopsy. Patient reports that she was not on any antibiotics recently. Will hold off on sending her for GES until patient sees thoracic surgeon. Patient will speak to her PCP about changing medications for diabetes. Suspicion of her symptoms could be caused by exenatide. Patient was encouraged all meals and more often. I will see patient in 3 months, sooner on as needed basis. Patient is agreeable to this plan and verbalizes understanding of instructions. She was given the opportunity to ask questions and all questions answered. ? Thank you for allowing me to participate in her care Medications New nystatin swish and swallow 1 mL PO BID 60 mL 0RF Discontinued Magic Mouthwash Diphen/Lido/Antacid 1:1:1 Lidocaine Viscous 2 % 80mL; diphenhydramine 12.5 mg/5 mL 80mL; aluminum-mag hydrox-simeth [id number]/5mL 80mL Discontinued Reason: Doctor's Order 10 mL PO QID 240 mL 0RF TODAY'S VISIT Patient is here today for follow-up. Patient states that she never received nystatin swish and swallow from the pharmacy. Patient reports that she has been feeling much better. Takes Nexium in the morning and states that her symptoms are improving. Patient also reports that depending on what she eats. Certain food aggravate her symptoms, patient is eating smaller portion and taking smaller bites. Patient was seen by thoracic surgeon motility testing was ordered and done in [place] on April 10. We do not have the results yet. Pending results patient will go for surgery for hiatal hernia. Patient denies any nausea or vomiting. Patient reports that she is moving her bowels every couple days. Feels like she empties her bowels well when she does go to the bathroom. 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 Diabetes type 2, uncontrolled Surgical History History of colonoscopy History of repair of hiatal hernia History of cardiac catheterization Hx of hammer toe correction Hx of shoulder surgery Hx of tonsillectomy Hx laparoscopic cholecystectomy Hx of appendectomy Family History Brother Diabetes Father Lung cancer Mother HTN (hypertension) Social History Household Members: Family Housing: House Do you presently have visiting nurse or other home services: No Alcohol intake: current Alcohol intake frequency: does not drink Patient Tobacco Use Status: Former Tobacco user Tobacco use type: Cigarette Years Smoked: 20 e-Cigarette/Vaping Use: Never Used Second Hand Smoke Exposure: No service: No Current occupational status: retired Cognitive needs: No Hearing needs: No Vision needs: Yes (Glasses) Review of Systems Const Denies weight gain and Denies weight loss ENT Reports no additional complaints, Reports dysphagia (Occasional) and Denies odynophagia Card Reports no additional complaints Resp Reports no additional complaints GI Denies abdominal pain, Denies belching, Denies melena, Denies bloating, Denies change in bowel habits, Reports dysphagia (Occasional), Denies excessive flatus, Denies dyspepsia, Denies heartburn, Denies diarrhea, Denies loose stools, Denies nausea, Denies odynophagia and Denies vomiting Reports no additional complaints Musc Reports no additional complaints Neuro Reports no additional complaints Psych Reports no additional complaints Endo Reports no additional complaints Physical Exam Vital Signs: Last Vital Signs Pulse 70 04/17/24 15:00 BP 136/66 04/17/24 15:00 Pulse Ox 94 04/17/24 15:00 BMI result Body Mass Index 32.5 Const General: healthy appearing and no acute distress Nutritional Appearance: obese Orientation/consciousness: patient oriented x3 Resp Effort & Inspection: normal respiratory effort, able to speak in complete sentences, no tracheal deviation and symmetric chest movement Auscultation: clear to auscultation bilaterally Cardio Rate: regular rate GI Inspection: Yes normal to inspection, No distended and Yes obesity Palpation (GI): Soft to palpation, not firm, nontender and No hepatosplenomegaly present Auscultation: normal bowel sounds General: Yes no CVA tenderness Back/Spine/Pelvis Back: no CVA tenderness Skin General skin exam: elasticity normal, turgor normal and dry skin Neuro General: patient oriented x3 Psych Appearance: grossly normal Mental Status: mental status grossly normal Assessment & Plan Assessment & Plan (1) Dysphagia: Code(s): R13.10 - Dysphagia, unspecified Category: Medical Qualifiers: Dysphagia type: oropharyngeal phase Qualified Code(s): R13.12 - Dysphagia, oropharyngeal phase (2) Cricopharyngeal achalasia: Code(s): K22.0 - Achalasia of cardia (3) Sliding hiatal hernia: Code(s): K44.9 - Diaphragmatic hernia without obstruction or gangrene (4) Dyspepsia: Code(s): R10.13 - Epigastric pain (5) GERD (gastroesophageal reflux disease): Code(s): K21.9 - Gastro-esophageal reflux disease without esophagitis Qualifiers: Esophagitis presence: esophagitis presence not specified Qualified Code(s): K21.9 - Gastro-esophageal reflux disease without esophagitis (6) Postprandial epigastric pain: Code(s): R10.13 - Epigastric pain Plan Continue Nexium. Avoid dietary triggers in late night snacking. Staying upright for minimum 3 hours after meals discussed with patient. Patient will follow-up in our office in 3 months, sooner on as needed basis. Patient will call our office when she will find date for her surgery for hiatal hernia repair. Patient is agreeable to this plan and verbalizes understanding of instructions. She was given the opportunity to ask questions and all questions answered. Thank you for allowing me to participate in her care Medications: Discontinued sennosides (Natural Senna Laxative) Discontinued Reason: Doctor's Order 17.2 mg (2 x 8.6 mg) PO BEDTIME 60 tabs 3RF constipation K59.00 - Constipation, unspecified methylcellulose (laxative) (Citrucel) Discontinued Reason: Doctor's Order 500 mg PO DAILY 30 tabs 2RF K59.00 - Constipation, unspecified Coding Level of Care Code Est Pt Level 3 (29882) Diagnoses Oropharyngeal dysphagia R13.12 Dysphagia type: oropharyngeal phase Cricopharyngeal achalasia K22.0 Sliding hiatal hernia K44.9 Dyspepsia R10.13 Gastroesophageal reflux disease, unspecified whether esophagitis present K21.9 Esophagitis presence: esophagitis presence not specified Postprandial epigastric pain R10.13 Time Spent (min) 25 Comment 15 minutes spent with patient and additional 10 minutes spent reviewing her records
[2024-04-17 15:00] VITALS: BP 136/66; PULSE 70; O2SAT 94; BMI 32.5
== END 2024-04-17 15:20 | disposition home or self-care (01) ==
PROVIDERS: PCP Internal Medicine; Visit Provider Nurse Practitioner Family
DX: R13.12 Dysphagia, oropharyngeal phase (principal); K22.0 Achalasia of cardia; K44.9 Diaphragmatic hernia without obstruction or gangrene; R10.13 Epigastric pain; K21.9 Gastro-esophageal reflux disease without esophagitis
CPT/HCPCS: 99213

== ENCOUNTER → 2024-04-17 14:35 | Outpatient (BNVA) | payer MEDICARE, OTHER, SELFPAY | PROVIDERS: PCP Internal Medicine; Visit Provider Nurse Practitioner Family | DX: K21.9 Gastro-esophageal reflux disease without esophagitis (principal); K22.0 Achalasia of cardia; K44.9 Diaphragmatic hernia without obstruction or gangrene; R10.13 Epigastric pain; R13.12 Dysphagia, oropharyngeal phase | CPT/HCPCS: 99212 ==

== ENCOUNTER 2024-06-15 14:15 | Outpatient (AMB) | payer MEDICARE, OTHER, SELFPAY ==
--- NOTE | 2024-06-15 14:28 | MHC.PC.OV ---
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 Accompanied by: Self / Same As Patient Allergies hydrocodone [From VICODIN] Allergy (Unknown, Verified 06/15/24 14:29) HEADACHE oxycodone [OXYCODONE] Allergy (Unknown, Verified 06/15/24 14:29) HIVES procaine [From NOVOCAIN] Allergy (Unknown, Verified 06/15/24 14:29) FAINTED Medication List - Last Reconciled 06/18/24 by Buddy Morrow MD amitriptyline 25 mg PO DAILY aspirin 81 mg PO DAILY blood sugar diagnostic (Accu-Chek SmartView Test Strips) As directed blood sugar diagnostic (FreeStyle Precision Hilton Strips) As directed blood sugar diagnostic (Accu-Chek Francoise Plus test strips) As directed twice a day cholecalciferol (vitamin D3) 25 mcg PO DAILY esomeprazole magnesium (Nexium) 40 mg PO DAILY exenatide microspheres ER 2 mg (0.85 mL) subcut QWEEK 90 days fish,bora,flax oils-om3,6,9no1 400-400-400 mg 1 cap PO DAILY furosemide 20 mg PO DAILY gabapentin 600 mg PO DAILY levothyroxine 112 mcg PO DAILY metformin 1,000 mg PO DAILY metoprolol tartrate 25 mg PO DAILY multivitamin 1 tab PO DAILY niacin 50 mg PO BEDTIME nystatin 1 mL PO BID simvastatin 40 mg PO BEDTIME 90 days Tobacco use date assessed: 01/02/24 Fall risk assessment: No Falls in past year Last assessed Fall Risk: 06/15/24 Dental Screening Dental Screen Date: 01/02/24 HPI [facility] 05/20 HPI Details DM; doing well and compliant; labs fine [facility] Medical History Dysphagia Hypoglycemia unawareness associated with type 2 diabetes mellitus Hyperlipidemia associated with type 2 diabetes mellitus Obesity Post-menopausal Screening for breast cancer Dizziness Pre-op exam IDDM (insulin dependent diabetes mellitus) Pre-op exam Diabetic polyneuropathy associated with type 2 diabetes mellitus Obesity (BMI 30-39.9) Hypertension Hypothyroidism 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 Diabetes type 2, uncontrolled Surgical History History of colonoscopy History of repair of hiatal hernia History of cardiac catheterization Hx of hammer toe correction Hx of shoulder surgery Hx of tonsillectomy Hx laparoscopic cholecystectomy Hx of appendectomy Family History Brother Diabetes Father Lung cancer Mother HTN (hypertension) Social History Household Members: Family Housing: House Do you presently have visiting nurse or other home services: No Alcohol intake: current Alcohol intake frequency: does not drink Patient Tobacco Use Status: Former Tobacco user Tobacco use type: Cigarette Years Smoked: 20 e-Cigarette/Vaping Use: Never Used Second Hand Smoke Exposure: No service: No Current occupational status: retired Cognitive needs: No Hearing needs: No Vision needs: Yes (Glasses) Questionnaire Thrive Questionnaire Date Thrive assessed: 01/02/24 GHAZAL-7 AMB Questionnaire GHAZAL-7 Date GHAZAL - 7 assessed: 01/02/24 Source: Developed by Drs. Hugh Sanon, Kajal Fuentes, Sam Padgett and colleagues, with an educational melissa from [email or web address]. Review of Systems Const Denies chills, Denies headache(s) and Denies weight loss ENT Denies headache(s) Card Denies chest pain, Denies syncope, Denies irregular heart rhythm and Denies dyspnea Resp Denies chest congestion, Denies cough and Denies dyspnea GI Denies abdominal pain, Denies change in stool character, Denies nausea and Denies vomiting Musc Denies deformity and Denies joint swelling Neuro Denies syncope and Denies headache(s) Physical exam (Primary Care) Vital Signs: Last Vital Signs Pulse 72 06/15/24 14:29 BP 128/68 06/15/24 14:29 Pulse Ox 99 06/15/24 14:29 Oxygen Delivery Method Room Air 06/15/24 14:29 BMI result Body Mass Index 31.0 Tobacco/Smoking Status: Tobacco use Status Tobacco use date assessed 01/02/24 06/15/24 14:30 Patient Tobacco Use Status Former Tobacco user 06/15/24 14:30 Tobacco use type Cigarette 06/15/24 14:30 e-Cigarette/Vaping Use Never Used 06/15/24 14:30 Thrive Assessment: Date of Thrive Assessment Date Thrive assessed 01/02/24 06/15/24 14:30 Const General: cooperative, comfortable, no acute distress and alert Neck Neck: Yes no lymphadenopathy Thyroid: Thyroid normal Resp Effort & Inspection: normal respiratory effort Auscultation: clear to auscultation bilaterally Percussion: percussion normal Cardio Jugular venous distension: no JVD Palpation: normal PMI Rate: regular rate Rhythm: regular rhythm Heart sounds: S1 normal heart sound present and S2 normal heart sound present GI Inspection: Yes normal to inspection Palpation (GI): No hepatosplenomegaly present Skin General skin exam: no rashes or lesions noted Extrem General: Yes no clubbing, cyanosis or edema Assessment and Plan Assessment & Plan (1) Diabetes mellitus with coincident hypertension: Code(s): E11.9 - Type 2 diabetes mellitus without complications; I10 - Essential (primary) hypertension Plan: stable; same rx Orders: Orders Lipid Panel Today Z13.220 - Encounter for screening for lipoid disorders Thyroid Stimulating Hormone Today Z13.29 - Encounter for screening for other suspected endocrine disorder Hemoglobin A1c Today R73.9 - Hyperglycemia, unspecified Glucose Fasting Today R73.9 - Hyperglycemia, unspecified Medications: New furosemide 20 mg PO DAILY 30 tabs 0RF Coding Level of Care Code Est Pt Level 3 (05259) Diagnoses Diabetes mellitus with coincident hypertension E11.9; I10
[2024-06-15 14:29] VITALS: BP 128/68; PULSE 72; O2SAT 99; BMI 31.0
== END 2024-06-15 14:43 | disposition home or self-care (01) ==
PROVIDERS: PCP Internal Medicine; Visit Provider Internal Medicine
DX: E11.9 Type 2 diabetes mellitus without complications (principal); I10 Essential (primary) hypertension
CPT/HCPCS: 99213

== ENCOUNTER 2024-07-17 13:21 | Outpatient (AMB) | payer MEDICARE, OTHER, SELFPAY ==
--- NOTE | 2024-07-17 13:30 | MHC.OFFVIS ---
Vital Signs 07/17/24 13:37 Height 5 ft 4 in Weight 182 lb 15.739 oz BMI 31.4 BP 142/74 H Blood Pressure Location Rt brachial Position Sitting Pulse 64 Pulse Source Pulse Oximeter Pulse Oximetry (%) 97 Oxygen Delivery Method Room Air Intake Visit Reasons: 3 month f.u Intake Note: Miriam presents in office today for a scheduled 3 mos FUV. CC; Pt reports that their condition has greatly improved since their last visit. Pt denies any complications post op and states that they are doing much better. Pt denies any new concerns or sx at this time. 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 Avoid dietary triggers in late night snacking. Staying upright for minimum 3 hours after meals discussed with patient. Patient will follow-up in our office in 3 months, sooner on as needed basis. Patient will call our office when she will find date for her surgery for hiatal hernia repair. Patient is agreeable to this plan and verbalizes understanding of instructions. She was given the opportunity to ask questions and all questions answered. ? Thank you for allowing me to participate in her care Medications Discontinued sennosides (Natural Senna Laxative) Discontinued Reason: Doctor's Order 17.2 mg (2 x 8.6 mg) PO BEDTIME 60 tabs 3RF constipation K59.00 methylcellulose (laxative) (Citrucel) Discontinued Reason: Doctor's Order 500 mg PO DAILY 30 tabs 2RF K59.00 TODAY'S VISIT Patient is here today for follow-up. Patient had developed achalasia type 2. Patient had Botox injections in the past, however opted for surgery. Patient had robotic laparoscopic Heller myotomy, paraesophageal hernia repair with mesh and toupee fundoplication as well as an EGD with savory dilation up to 41 [place]. Since the procedure patient has been doing very well. Denies any GI concerning symptoms. Denies any dysphagia, dyspepsia or odynophagia.. Patient continues to take Nexium and has no issues. Patient is due to go for colonoscopy. 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 Diabetes type 2, uncontrolled Surgical History History of colonoscopy History of repair of hiatal hernia History of cardiac catheterization Hx of hammer toe correction Hx of shoulder surgery Hx of tonsillectomy Hx laparoscopic cholecystectomy Hx of appendectomy Family History Brother Diabetes Father Lung cancer Mother HTN (hypertension) Social History Household Members: Family Housing: House Do you presently have visiting nurse or other home services: No Alcohol intake: current Alcohol intake frequency: does not drink Patient Tobacco Use Status: Former Tobacco user Tobacco use type: Cigarette Years Smoked: 20 e-Cigarette/Vaping Use: Never Used Second Hand Smoke Exposure: No service: No Current occupational status: retired Cognitive needs: No Hearing needs: No Vision needs: Yes (Glasses) Review of Systems Const Denies weight gain and Denies weight loss ENT Reports no additional complaints, Denies dysphagia and Denies odynophagia Card Reports no additional complaints Resp Reports no additional complaints GI Denies abdominal pain, Denies belching, Denies melena, Denies bloating, Denies change in bowel habits, Denies dysphagia, Denies excessive flatus, Denies dyspepsia, Denies heartburn, Denies diarrhea, Denies loose stools, Denies nausea, Denies odynophagia and Denies vomiting Reports no additional complaints Musc Reports no additional complaints Neuro Reports no additional complaints Psych Reports no additional complaints Endo Reports no additional complaints Physical Exam Vital Signs: Last Vital Signs Pulse 64 07/17/24 13:37 BP 142/74 H 07/17/24 13:37 Pulse Ox 97 07/17/24 13:37 Oxygen Delivery Method Room Air 07/17/24 13:37 BMI result Body Mass Index 31.4 Const General: healthy appearing and no acute distress Nutritional Appearance: obese Orientation/consciousness: patient oriented x3 Resp Effort & Inspection: normal respiratory effort, able to speak in complete sentences, no tracheal deviation and symmetric chest movement Auscultation: clear to auscultation bilaterally Cardio Rate: regular rate GI Inspection: Yes normal to inspection, No distended and Yes obesity Palpation (GI): Soft to palpation, not firm, nontender and No hepatosplenomegaly present Auscultation: normal bowel sounds General: Yes no CVA tenderness Back/Spine/Pelvis Back: no CVA tenderness Skin General skin exam: elasticity normal, turgor normal and dry skin Neuro General: patient oriented x3 Psych Appearance: grossly normal Mental Status: mental status grossly normal Assessment & Plan Assessment & Plan (1) Dysphagia: Code(s): R13.10 - Dysphagia, unspecified Category: Medical Qualifiers: Dysphagia type: oropharyngeal phase Qualified Code(s): R13.12 - Dysphagia, oropharyngeal phase (2) Cricopharyngeal achalasia: Code(s): K22.0 - Achalasia of cardia (3) Sliding hiatal hernia: Code(s): K44.9 - Diaphragmatic hernia without obstruction or gangrene (4) Dyspepsia: Code(s): R10.13 - Epigastric pain (5) GERD (gastroesophageal reflux disease): Code(s): K21.9 - Gastro-esophageal reflux disease without esophagitis Qualifiers: Esophagitis presence: esophagitis presence not specified Qualified Code(s): K21.9 - Gastro-esophageal reflux disease without esophagitis (6) Postprandial epigastric pain: Code(s): R10.13 - Epigastric pain Plan Patient will continue Nexium daily. Avoid dietary triggers and late night snacking. Avoid laying down for minimum 3 hours after meals. Follow-up in 3 months to discuss going for colonoscopy. Referral to Urology as patient is reporting urinary incontinence almost every time she gets up from the sitting position. Patient is agreeable to plan of care and verbalizes understanding of instructions. She was given the opportunity to ask questions and all questions answered. Thank you for allowing me to participate in her care Orders: Referrals Urology Referral R32 - Unspecified urinary incontinence, Z87.898 - Personal history of other specified conditions Medications: Refilled esomeprazole magnesium (Nexium) 40 mg PO DAILY 90 caps 2RF K21.9 - Gastro-esophageal reflux disease without esophagitis Coding Level of Care Code Est Pt Level 3 (48461) Diagnoses Oropharyngeal dysphagia R13.12 Dysphagia type: oropharyngeal phase Cricopharyngeal achalasia K22.0 Sliding hiatal hernia K44.9 Dyspepsia R10.13 Gastroesophageal reflux disease, unspecified whether esophagitis present K21.9 Esophagitis presence: esophagitis presence not specified Postprandial epigastric pain R10.13 Time Spent (min) 30 Comment 20 minutes spent with patient and additional 10 minutes spent reviewing her records
[2024-07-17 13:37] VITALS: BP 142/74; PULSE 64; O2SAT 97; BMI 31.4
== END 2024-07-17 13:59 | disposition home or self-care (01) ==
PROVIDERS: PCP Internal Medicine; Visit Provider Nurse Practitioner Family
DX: R13.12 Dysphagia, oropharyngeal phase (principal); K22.0 Achalasia of cardia; K44.9 Diaphragmatic hernia without obstruction or gangrene; R10.13 Epigastric pain; K21.9 Gastro-esophageal reflux disease without esophagitis
CPT/HCPCS: 99213

== ENCOUNTER → 2024-07-17 13:21 | Outpatient (BNVA) | payer MEDICARE, OTHER, SELFPAY | PROVIDERS: PCP Internal Medicine; Visit Provider Nurse Practitioner Family | DX: K44.9 Diaphragmatic hernia without obstruction or gangrene (principal); K21.9 Gastro-esophageal reflux disease without esophagitis; K22.0 Achalasia of cardia; R13.12 Dysphagia, oropharyngeal phase; R10.13 Epigastric pain | CPT/HCPCS: 99212 ==

== ENCOUNTER 2024-08-10 11:45 | Outpatient (REF) | payer MEDICARE, OTHER, SELFPAY ==
[2024-08-10 12:24] LABS: Estimated Average Glucose 146 mg/dL; Hemoglobin A1C 171.5978 umol/L; Hemoglobin A1c % 6.7 % (<6.0); Total Hemoglobin (HGBA1C) 3460.1805 umol/L
[2024-08-10 13:05] LABS: Cholesterol 168 mg/dL (<200); Glucose Fasting 155 mg/dL (60-99); HDL Cholesterol 46 mg/dL (>40); LDL Cholesterol Calculated 77 mg/dL (<100); Triglycerides 229 mg/dL (<150)
[2024-08-10 13:23] LABS: Thyroid Stimulating Hormone 2.35 uIU/mL (0.32-4.0)
== END 2024-08-10 11:46 | disposition home or self-care (01) ==
LOC: HO.LAB 11:45
PROVIDERS: PCP Internal Medicine; Visit Provider Internal Medicine
DX: R73.9 Hyperglycemia, unspecified (principal); Z13.29 Encounter for screening for other suspected endocrine disorder; Z13.220 Encounter for screening for lipoid disorders
CPT/HCPCS: 36415; 80061; 82947; 83036; 84443

== ENCOUNTER 2024-08-10 14:10 | Outpatient (AMB) | payer MEDICARE, OTHER, SELFPAY ==
--- NOTE | 2024-08-10 14:17 | A.OFFVIS_ITS ---
Intake Vital Signs 08/10/24 14:18 Height 5 ft 4 in Weight 186 lb BMI 31.9 BP 136/80 Blood Pressure Location Lt brachial Position Sitting Pulse 67 Pulse Source Pulse Oximeter Pulse Oximetry (%) 96 Oxygen Delivery Method Room Air Intake Visit Reasons: [facility] [id number] Configuration Manager Required: No Accompanied by: Self / Same As Patient Allergies hydrocodone [From VICODIN] Allergy (Unknown, Verified 08/10/24 14:23) HEADACHE oxycodone [OXYCODONE] Allergy (Unknown, Verified 08/10/24 14:23) HIVES procaine [From NOVOCAIN] Allergy (Unknown, Verified 08/10/24 14:23) FAINTED Medication List - Last Reconciled 08/10/24 by Buddy Morrow MD amitriptyline 25 mg PO DAILY aspirin 81 mg PO DAILY blood sugar diagnostic (Accu-Chek SmartView Test Strips) As directed blood sugar diagnostic (FreeStyle Precision Hilton Strips) As directed blood sugar diagnostic (Accu-Chek Francoise Plus test strips) As directed twice a day cholecalciferol (vitamin D3) 25 mcg PO DAILY esomeprazole magnesium (Nexium) 40 mg PO DAILY exenatide microspheres ER 2 mg (0.85 mL) subcut QWEEK 90 days fish,bora,flax oils-om3,6,9no1 400-400-400 mg 1 cap PO DAILY furosemide 20 mg PO DAILY gabapentin 600 mg PO DAILY levothyroxine 112 mcg PO DAILY metformin 1,000 mg PO DAILY metoprolol tartrate 25 mg PO DAILY multivitamin 1 tab PO DAILY niacin 50 mg PO BEDTIME nystatin 1 mL PO BID simvastatin 40 mg PO BEDTIME 90 days HPI [facility] [id number] HPI Details diabetes hypothyroidism hyperlipidemia and hypertension; doing well and compliant [facility] Medical History (Reviewed 07/17/24 @ 13:37 by Aristides Borden [facility] [place]) Hx of esophageal ulcer (~04/2024) Hiatal hernia (~04/2024) Dysphagia Hypoglycemia unawareness associated with type 2 diabetes mellitus Hyperlipidemia associated with type 2 diabetes mellitus Obesity Post-menopausal Screening for breast cancer Dizziness Pre-op exam IDDM (insulin dependent diabetes mellitus) Pre-op exam Diabetic polyneuropathy associated with type 2 diabetes mellitus Obesity (BMI 30-39.9) Hypertension Hypothyroidism 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 Diabetes type 2, uncontrolled Surgical History History of colonoscopy History of repair of hiatal hernia History of cardiac catheterization Hx of hammer toe correction Hx of shoulder surgery Hx of tonsillectomy Hx laparoscopic cholecystectomy Hx of appendectomy Family History Brother Diabetes Father Lung cancer Mother HTN (hypertension) Social History Household Members: Family Housing: House Do you presently have visiting nurse or other home services: No Alcohol intake: current Alcohol intake frequency: does not drink Patient Tobacco Use Status: Former Tobacco user Tobacco use type: Cigarette Years Smoked: 20 e-Cigarette/Vaping Use: Never Used Second Hand Smoke Exposure: No service: No Current occupational status: retired Cognitive needs: No Hearing needs: No Vision needs: Yes (Glasses) Questionnaire Medicare Wellness Checkup [age] What gender do you identify with?: female During the past 4 weeks, how much have you been bothered by emotional problems such as feeling anxious, depressed, irritable, sad or downhearted, and blue?: not at all During the past 4 weeks, has your physical & emotional health limited your social activities with family, friends, neighbors, or groups?: not at all During the past 4 weeks, how much bodily pain have you generally had?: very mild pain During the past 4 weeks, was someone available to help you if you needed & wanted help?: yes, as much as I wanted Can you get to places out of walking distance without help? (For eg., can you travel alone on buses, taxis or drive your car?): Yes Can you go shopping for groceries or clothes without someone's help?: Yes Can you prepare your own meals?: Yes Can you do your housework without help?: Yes Because of any health problems, do you need the help of another person with your personal care needs such as eating, bathing, dressing or getting around the house?: No Can you handle your own money without help?: Yes During the past 4 weeks, how would you rate your health in general?: good During the past 4 weeks how have things been going for you?: pretty well Are you having difficulties driving your car?: not applicable, I don't use a car Do you always fasten your seat belt when you are in a car?: yes, usually During past 4 weeks, have you been bothered by the following: never: Problems using the telephone? and seldom: Falling or dizzy when standing up and Trouble eating well? Have you fallen 2 or more times in the past year?: No Are you afraid of falling?: No Are you a smoker?: no During the past 4 weeks, how many drinks of wine, beer, or other alcoholic beverages did you have?: no alcohol at all Do you exercise for about 20 minutes 3 or more times a week?: yes, some of the time Have you been given information to help with the following?: yes: Hazards in your house that might hurt you? and yes: Keeping track of your medications? How often do you have trouble taking medicines the way you have been told to take them?: I always take medicine as prescribed How confident are you that you can control & manage most of your health problems?: very confident What is your race?: White PHQ-9 Over the last 2 weeks, how often have you been bothered by any of the following problems? 1. Little interest or pleasure in doing things: several days 2. Feeling down, depressed, or hopeless: not at all 3. Trouble falling or staying asleep, or sleeping too much: nearly every day 4. Feeling tired or having little energy: not at all 5. Poor appetite or overeating: more than half the days 6. Feeling bad about yourself - or that you are a failure or have let yourself or your family down: not at all 7. Trouble concentrating on things, such as reading the newspaper or watching television: not at all 8. Moving or speaking so slowly that other people could have noticed. Or the opposite - being so fidgety or restless that you have been moving around a lot more than usual: not at all 9. Thoughts that you would be better off or of hurting yourself in some way: not at all Total score: 6 Depression Screening Interpretation: Positive Depression Screening Done: Yes 80117 - PHQ-9 Billing: Yes Source: Developed by Drs. Hugh Sanon, Kajal B.W. Sam Fuentes and colleagues, with an educational melissa from [employer]. Review of Systems Const Denies chills, Denies headache(s) and Denies weight loss ENT Denies headache(s) Card Denies chest pain, Denies syncope, Denies irregular heart rhythm and Denies dyspnea Resp Denies chest congestion, Denies cough and Denies dyspnea GI Denies abdominal pain, Denies change in stool character, Denies nausea and Denies vomiting Musc Denies deformity and Denies joint swelling Neuro Denies syncope and Denies headache(s) Physical Exam Vital Signs: Last Vital Signs Pulse 67 08/10/24 14:18 BP 136/80 08/10/24 14:18 Pulse Ox 96 08/10/24 14:18 Oxygen Delivery Method Room Air 08/10/24 14:18 BMI result Body Mass Index 31.9 Const General: cooperative, comfortable, no acute distress and alert Neck Neck: Yes no lymphadenopathy Thyroid: Thyroid normal Resp Effort & Inspection: normal respiratory effort Auscultation: clear to auscultation bilaterally Percussion: percussion normal Cardio Jugular venous distension: no JVD Palpation: normal PMI Rate: regular rate Rhythm: regular rhythm Heart sounds: S1 normal heart sound present and S2 normal heart sound present GI Inspection: Yes normal to inspection Palpation (GI): No hepatosplenomegaly present Skin General skin exam: no rashes or lesions noted Extrem General: Yes no clubbing, cyanosis or edema Results AMB Hemoglobin A1c AMB Hemoglobin A1c 6.9 % Last Edit by Danisha Jones CMA on 08/10/24 14:33 Results Reviewed Results Reviewed: Laboratory Last Values Hgb A1c (Clinic) 6.9 % (4.0-6.0) H 08/10/24 14:20 Assessment & Plan Assessment & Plan (1) Diabetes mellitus with coincident hypertension: Code(s): E11.9 - Type 2 diabetes mellitus without complications; I10 - Essential (primary) hypertension Plan: stable; same rx (2) Hyperlipidemia associated with type 2 diabetes mellitus: Code(s): E11.69 - Type 2 diabetes mellitus with other specified complication; E78.5 - Hyperlipidemia, unspecified Plan: stable; same rx (3) Essential hypertension: Code(s): I10 - Essential (primary) hypertension Plan: stable; same rx (4) Hypothyroidism: Code(s): E03.9 - Hypothyroidism, unspecified Qualifiers: Hypothyroidism type: acquired Qualified Code(s): E03.9 - Hypothyroidism, unspecified Plan same rx Orders: Orders AMB Hemoglobin A1c Today E11.8 - Type 2 diabetes mellitus with unspecified complications Quality Reporting (2019) Depression/Bipolar (159/160/161/177) PHQ-9: Total score: 6 Coding Level of Care Code Medicare Subsequent (G0439) Diagnoses Diabetes mellitus with coincident hypertension E11.9; I10 Hyperlipidemia associated with type 2 diabetes mellitus E11.69; E78.5 Essential hypertension I10 Acquired hypothyroidism E03.9 Hypothyroidism type: acquired
[2024-08-10 14:18] VITALS: BP 136/80; PULSE 67; O2SAT 96; BMI 31.9
== END 2024-08-10 14:30 | disposition home or self-care (01) ==
PROVIDERS: PCP Internal Medicine; Visit Provider Internal Medicine
DX: I10 Essential (primary) hypertension (principal); E11.69 Type 2 diabetes mellitus with other specified complication; E78.5 Hyperlipidemia, unspecified; E03.9 Hypothyroidism, unspecified
CPT/HCPCS: 83036; 99214

== ENCOUNTER 2024-08-15 13:08 | Outpatient (AMB) | payer MEDICARE, OTHER, SELFPAY ==
[2024-08-15 13:10] VITALS: BP 170/86; PULSE 67; BMI 32.2
--- NOTE | 2024-08-15 13:10 | A.OFFVIS_ITS ---
Vital Signs 08/15/24 13:10 Height 5 ft 4 in Weight 187 lb 6.287 oz BMI 32.2 BP 170/86 H Blood Pressure Location Lt brachial Position Sitting Pulse 67 Intake Visit Reasons: 1 year follow-up Intake Note: 1 year follow-up with ekg feeling good Plaster Form Maker Required: No Allergies hydrocodone [From VICODIN] Allergy (Unknown, Verified 08/10/24 14:23) HEADACHE oxycodone [OXYCODONE] Allergy (Unknown, Verified 08/10/24 14:23) HIVES procaine [From NOVOCAIN] Allergy (Unknown, Verified 08/10/24 14:23) FAINTED Medication List - Last Reconciled 08/15/24 by Carson Bender MD amitriptyline 25 mg PO DAILY aspirin 81 mg PO DAILY blood sugar diagnostic (Accu-Chek SmartView Test Strips) As directed blood sugar diagnostic (FreeStyle Precision [place] Strips) As directed blood sugar diagnostic (Accu-Chek Francoise Plus test strips) As directed twice a day cholecalciferol (vitamin D3) 25 mcg PO DAILY esomeprazole magnesium (Nexium) 40 mg PO DAILY exenatide microspheres ER 2 mg (0.85 mL) subcut QWEEK 90 days fish,bora,flax oils-om3,6,9no1 400-400-400 mg 1 cap PO DAILY furosemide 20 mg PO DAILY PRN gabapentin 600 mg PO DAILY levothyroxine 112 mcg PO DAILY metformin 1,000 mg PO DAILY metoprolol tartrate 12.5 mg PO BID multivitamin 1 tab PO DAILY niacin 50 mg PO BEDTIME nystatin 1 mL PO BID simvastatin 40 mg PO BEDTIME 90 days HPI Comments Details: Miriam returns for follow-up regarding coronary disease. She used to see [facility] in the past. She has had cardiac catheterization few years ago. Otherwise, today's blood pressure seems high, but she states it is very labile and can be up or down. Some of the recorded blood pressures are on the lower side but today it is high. Variable numbers. Overall, she states she feels fine. No angina or shortness of breath. She has had dizziness in the past. 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 Diabetes type 2, uncontrolled Surgical History History of colonoscopy History of repair of hiatal hernia History of cardiac catheterization Hx of hammer toe correction Hx of shoulder surgery Hx of tonsillectomy Hx laparoscopic cholecystectomy Hx of appendectomy Family History Brother Diabetes Father Lung cancer Mother HTN (hypertension) Social History Household Members: Family Housing: House Do you presently have visiting nurse or other home services: No Alcohol intake: current Alcohol intake frequency: does not drink Patient Tobacco Use Status: Former Tobacco user Tobacco use type: Cigarette Years Smoked: 20 e-Cigarette/Vaping Use: Never Used Second Hand Smoke Exposure: No service: No Current occupational status: retired Cognitive needs: No Hearing needs: No Vision needs: Yes (Glasses) Review of Systems Const Denies chills, Denies fatigue, Denies fever(s), Denies frequent falls, Denies weakness, Denies weight gain and Denies weight loss ENT Denies dizziness Card Denies chest pain, Denies leg edema, Denies lightheadedness, Denies palpitations, Denies dyspnea, Denies dyspnea on exertion, Denies orthopnea and Denies other (loss of consciousness) Resp Denies cough, Denies dyspnea and Denies dyspnea on exertion GI Denies hematochezia and Denies change in stool character Musc Denies abnormal gait, Denies muscle weakness, Denies numbness, Denies radiating pain into limb and Denies tingling Neuro Denies abnormal gait, Denies dizziness, Denies frequent falls, Denies numbness, Denies tingling and Denies weakness Endo Denies fatigue and Denies palpitations Physical Exam Vital Signs: Last Vital Signs Pulse 67 08/15/24 13:10 BP 170/86 H 08/15/24 13:10 BMI result Body Mass Index 32.2 Const General: comfortable and no acute distress Orientation/consciousness: patient oriented x3 HEENT Other: Unremarkable Head: Yes normal to inspection Neck Neck: Yes normal visual inspection Chest Chest palpation & inspection: normal inspection of the chest Resp Auscultation: clear to auscultation bilaterally Cardio Palpation: normal PMI Heart sounds: S1 normal heart sound present, S2 normal heart sound present, no gallops, no murmurs and no rubs GI Palpation (GI): Soft to palpation Back/Spine/Pelvis Other: unremarkable Skin General skin exam: no rashes or lesions noted Neuro General: patient oriented x3 Extrem General: Yes normal to inspection Psych Mental Status: mental status grossly normal Office Procedures EKG Details: EKG with underlying sinus rhythm at 67/Min; IA prolongation to 236 millisecond; voltage criteria for LVH; [place]. [id number], Complete Assessment & Plan Assessment & Plan (1) Atherosclerotic cardiovascular disease: Code(s): I25.10 - Atherosclerotic heart disease of [place] coronary artery without angina pectoris Category: Medical Plan: Cardiac catheterization from 2018 with 60% stenosis in the ostial PLV branch, but otherwise unremarkable. Echocardiogram with LVEF of 65-70% with mild diastolic dysfunction. Clinically, no angina. Continue aspirin, beta-blockers and statins. In the past, beta-shannon dosing was decreased. (2) Type 2 diabetes mellitus with unspecified complications: Code(s): E11.8 - Type 2 diabetes mellitus with unspecified complications Category: Medical Plan: On metformin. Hemoglobin A1c is 6.9%. Reasonable. (3) Essential hypertension: Code(s): I10 - Essential (primary) hypertension Category: Medical Plan: Blood pressure is high today and I rechecked it myself. She states home blood pressures are in the 140s. We can try Losartan 25 mg daily. Advised her to contact us in a few days after taking the medication. Based on readings, make further changes. BNP 1-2 weeks after starting Losartan. Discussed. (4) Other and unspecified hyperlipidemia: Code(s): E78.5 - Hyperlipidemia, unspecified Category: Medical Plan: On statins. LDL levels controlled. (5) First degree heart block: Code(s): I44.0 - Atrioventricular block, first degree Category: Medical Plan: In the past, beta-shannon dose was decreased. May follow on EKGs. Orders: Orders Basic Metabolic Panel 2 Weeks Carson Bender MD I10 - Essential (primary) hypertension Medications: New losartan 25 mg PO DAILY 90 tabs 3RF Carson Bender MD Changed From furosemide 20 mg PO DAILY 30 tabs 0RF To furosemide 20 mg PO DAILY PRN Buddy Morrow MD From metoprolol tartrate 25 mg PO DAILY 90 tabs 3RF To metoprolol tartrate 12.5 mg PO BID Carson Bender MD Coding Level of Care Code Est Pt Level 4 (74933) Diagnoses Atherosclerotic cardiovascular disease I25.10 Type 2 diabetes mellitus with unspecified complications E11.8 Essential hypertension I10 Other and unspecified hyperlipidemia E78.5 First degree heart block I44.0 CPT Codes EKG - CPT: [id number], Complete ([id number])
== END 2024-08-15 13:38 | disposition home or self-care (01) ==
PROVIDERS: PCP Internal Medicine; Visit Provider Internal Medicine
DX: I25.10 Atherosclerotic heart disease of native coronary artery without angina pectoris (principal); E11.8 Type 2 diabetes mellitus with unspecified complications; I10 Essential (primary) hypertension; E78.5 Hyperlipidemia, unspecified; I44.0 Atrioventricular block, first degree
CPT/HCPCS: 93010; 99214

== ENCOUNTER → 2024-08-15 13:08 | Outpatient (BNVA) | payer MEDICARE, OTHER, SELFPAY | PROVIDERS: PCP Internal Medicine; Visit Provider Internal Medicine | DX: I25.10 Atherosclerotic heart disease of native coronary artery without angina pectoris (principal); I10 Essential (primary) hypertension; I44.0 Atrioventricular block, first degree; E11.8 Type 2 diabetes mellitus with unspecified complications; E78.5 Hyperlipidemia, unspecified | CPT/HCPCS: 93005; 99212 ==

== ENCOUNTER 2024-10-17 14:11 | Outpatient (AMB) | payer MEDICARE, OTHER, SELFPAY ==
[2024-10-17 14:25] VITALS: BP 128/62; PULSE 70; O2SAT 97; BMI 32.8
--- NOTE | 2024-10-17 14:25 | A.OFFVIS_ITS ---
Vital Signs 10/17/24 14:25 Height 5 ft 4 in Weight 190 lb 14.725 oz BMI 32.8 BP 128/62 Blood Pressure Location Rt brachial Position Sitting Pulse 70 Pulse Source Pulse Oximeter Pulse Oximetry (%) 97 Oxygen Delivery Method Room Air Intake Visit Reasons: 3 month follow up Intake Note: PRESCRIPTIONS LAST GENERATED esomeprazole magnesium 40 mg capsule,delayed release?(Nexium)?40 mg PO DAILY 90 caps 2RF RamónJenisea D 07/17/24 13:49 (Transmitted) Pt has upcoming urology appt for 11/07/24 per Tamara's referral. Pt is still taking the medication without difficulty Relevant Flags or Indicators ? Requires Creative Services Designer? N Miriam presents in office today for a scheduled 3 mos FUV. CC; No recent labs, diagnostics Relevant GI Sx as reported per pt? Nausea ? Vomiting (pt believes to be related to either viruses or eating too fast. ? Reflux (intermittently, sometimes severe but not often) ? Fecal abnormalities o?? Constipation ? Hx of any recent surgeries? None Creative Services Designer Required: No Allergies hydrocodone [From VICODIN] Allergy (Unknown, Verified 10/17/24 14:26) HEADACHE oxycodone [OXYCODONE] Allergy (Unknown, Verified 10/17/24 14:26) HIVES procaine [From NOVOCAIN] Allergy (Unknown, Verified 10/17/24 14:26) FAINTED HPI HPI 3 month follow up: Details: LAST VISIT: Dysphagia Cricopharyngeal achalasia Sliding hiatal hernia Dyspepsia GERD (gastroesophageal reflux disease) Postprandial epigastric pain Plan Patient will continue Nexium daily. Avoid dietary triggers and late night snacking. Avoid laying down for minimum 3 hours after meals. Follow-up in 3 months to discuss going for colonoscopy. Referral to Urology as patient is reporting urinary incontinence almost every time she gets up from the sitting position. Patient is agreeable to plan of care and verbalizes understanding of instructions. She was given the opportunity to ask questions and all questions answered. ? Thank you for allowing me to participate in her care Orders Referrals Urology Referral R32, [id number] Medications Refilled esomeprazole magnesium (Nexium) 40 mg PO DAILY 90 caps 2RF K21.9 TODAY'S VISIT: Patient is here today for follow-up. Patient reports that overall she has been feeling much better. Takes Nexium in the morning and for the most part patient reports that her symptoms are suppressed. Patient is eating smaller amounts and more often. Patient is trying to avoid certain dietary triggers. However she does admit that if she eats something that she shouldn't she knows she will have epigastric pain and bloating. Patient reports that for the most part she is going to the bathroom however occasionally she will be constipated. Patient denies any melena, hematochezia, unintentional weight loss or ribbon like stools. Patient is scheduled to go for colonoscopy and here today to discuss the prep. Patient denies any dyspepsia, dysphagia or odynophagia. Has appointment with urologist day after her colonoscopy. Patient continues to have urinary urgency. Denies fever or chills. Denies abdominal pain or discomfort. 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 Diabetes type 2, uncontrolled Surgical History History of colonoscopy History of repair of hiatal hernia History of cardiac catheterization Hx of hammer toe correction Hx of shoulder surgery Hx of tonsillectomy Hx laparoscopic cholecystectomy Hx of appendectomy Family History Brother Diabetes Father Lung cancer Mother HTN (hypertension) Social History Household Members: Family Housing: House Do you presently have visiting nurse or other home services: No Alcohol intake: current Alcohol intake frequency: does not drink Patient Tobacco Use Status: Former Tobacco user Tobacco use type: Cigarette Years Smoked: 20 e-Cigarette/Vaping Use: Never Used Second Hand Smoke Exposure: No service: No Current occupational status: retired Cognitive needs: No Hearing needs: No Vision needs: Yes (Glasses) Review of Systems Const Denies weight gain and Denies weight loss ENT Reports no additional complaints, Reports dysphagia (Occasional) and Denies odynophagia Card Reports no additional complaints Resp Reports no additional complaints GI Denies abdominal pain, Denies belching, Denies melena, Denies bloating, Denies change in bowel habits, Reports constipation (Occasional), Reports dysphagia (Occasional), Denies excessive flatus, Denies dyspepsia, Reports heartburn (Occasional), Denies diarrhea, Denies loose stools, Denies nausea, Denies odynophagia and Denies vomiting Musc Reports no additional complaints Neuro Reports no additional complaints Psych Reports no additional complaints Endo Reports no additional complaints Physical Exam Vital Signs: Last Vital Signs Pulse 70 10/17/24 14:25 BP 128/62 10/17/24 14:25 Pulse Ox 97 10/17/24 14:25 Oxygen Delivery Method Room Air 10/17/24 14:25 BMI result Body Mass Index 32.8 Const General: healthy appearing and no acute distress Nutritional Appearance: obese Orientation/consciousness: patient oriented x3 Resp Effort & Inspection: normal respiratory effort, able to speak in complete sentences, no tracheal deviation and symmetric chest movement Auscultation: clear to auscultation bilaterally Cardio Rate: regular rate GI Inspection: Yes normal to inspection, No distended and Yes obesity Palpation (GI): Soft to palpation, not firm, nontender and No hepatosplenomegaly present Auscultation: normal bowel sounds General: Yes no CVA tenderness Back/Spine/Pelvis Back: no CVA tenderness Skin General skin exam: elasticity normal, turgor normal and dry skin Neuro General: patient oriented x3 Psych Appearance: grossly normal Mental Status: mental status grossly normal Assessment & Plan Assessment & Plan (1) Dysphagia: Code(s): R13.10 - Dysphagia, unspecified Category: Medical Qualifiers: Dysphagia type: oropharyngeal phase Qualified Code(s): R13.12 - Dysphagia, oropharyngeal phase (2) Cricopharyngeal achalasia: Code(s): K22.0 - Achalasia of cardia (3) Sliding hiatal hernia: Code(s): K44.9 - Diaphragmatic hernia without obstruction or gangrene (4) Dyspepsia: Code(s): R10.13 - Epigastric pain (5) GERD (gastroesophageal reflux disease): Code(s): K21.9 - Gastro-esophageal reflux disease without esophagitis Qualifiers: Esophagitis presence: esophagitis presence not specified Qualified Code(s): K21.9 - Gastro-esophageal reflux disease without esophagitis (6) Postprandial epigastric pain: Code(s): R10.13 - Epigastric pain Plan What to expect before during and after procedure discussed with patient. Patien t denies any cardiac or respiratory symptoms on low-dose aspirin. Patient had procedures with anesthesia in December and did well. Denies any history of sleep apnea. Patient reports history of constipation at times. She will start taking Dulcolax 1 week before procedure every evening with 4 tablets day before procedure. Split MiraLax prep ordered as well. What to expect before during and after procedure discussed with patient. Stressed the importance of good bowel prep and clear liquid diet day before procedure. Patient will follow-up with me after the procedure. She will call our office if she will have any GI concerning symptoms. She is agreeable to this plan and verbalizes understanding of instructions. She was given the opportunity to ask questions and all questions answered. Thank you for allowing me to participate in her care Medications: New bisacodyl (Dulcolax (bisacodyl)) Start taking 2 tablet every night 7 days before the procedure and 1 day before procedure take 4 tablets at noon time followed by MiraLax prep 10 mg (2 x 5 mg) PO BEDTIME 16 tabs 0RF Z12.11 - Encounter for screening for malignant neoplasm of colon polyethylene glycol 3350 (Miralax) As directed by gastroenterology department at [facility] 238 grams PO ONCE 238 grams 0RF Z12.11 - Encounter for screening for malignant neoplasm of colon Coding Level of Care Code Est Pt Level 4 (03764) Diagnoses Oropharyngeal dysphagia R13.12 Dysphagia type: oropharyngeal phase Cricopharyngeal achalasia K22.0 Sliding hiatal hernia K44.9 Dyspepsia R10.13 Gastroesophageal reflux disease, unspecified whether esophagitis present K21.9 Esophagitis presence: esophagitis presence not specified Postprandial epigastric pain R10.13 Time Spent (min) 35 Comment 20 minutes spent with patient and additional 15 minutes spent reviewing her records
== END 2024-10-17 14:56 | disposition home or self-care (01) ==
PROVIDERS: PCP Internal Medicine; Visit Provider Nurse Practitioner Family
DX: R13.12 Dysphagia, oropharyngeal phase (principal); K22.0 Achalasia of cardia; K44.9 Diaphragmatic hernia without obstruction or gangrene; R10.13 Epigastric pain; K21.9 Gastro-esophageal reflux disease without esophagitis
CPT/HCPCS: 99214

== ENCOUNTER → 2024-10-17 14:11 | Outpatient (BNVA) | payer MEDICARE, OTHER, SELFPAY | PROVIDERS: PCP Internal Medicine; Visit Provider Nurse Practitioner Family | DX: K22.0 Achalasia of cardia (principal); K44.9 Diaphragmatic hernia without obstruction or gangrene; K21.9 Gastro-esophageal reflux disease without esophagitis; R13.12 Dysphagia, oropharyngeal phase; R10.13 Epigastric pain | CPT/HCPCS: 99212 ==

== ENCOUNTER 2024-11-07 14:51 | Outpatient (AMB) | payer MEDICARE, OTHER, SELFPAY ==
--- NOTE | 2024-11-07 14:58 | MHC.OFFVIS ---
Intake Visit Reasons: urinary incontinence Intake Note: New patient is present to establish care for Any Urology Medications: None Antibiotic Allergy: None Blood Thinner: Aspirin PVR: 0ml Family History: Bladder Cancer? No Prostate Cancer? No Patient Symptoms: Frequency urinating, difficulty holding urine Investigation Division Captain Required: No Allergies hydrocodone [From VICODIN] Allergy (Unknown, Verified 12/18/24 13:53) HEADACHE oxycodone [OXYCODONE] Allergy (Unknown, Verified 12/18/24 13:53) HIVES procaine [From NOVOCAIN] Allergy (Unknown, Verified 12/18/24 13:53) FAINTED HPI Comments Details: Miriam is a 74 year old female who is here for evaluation for urinary incontinence. Past Medical history significant for CAD, DM on diuretics prn. The patient complains of daytime urinary frequency, urinary incontinence, wears a pad, nocturia denies hematuria, dysuria, feeling of incomplete bladder emptying, history of kidney stones, I have discussed avoiding dietary bladder irritants, including to cut back on caffeine usage. The patient is unable to provide a urine sample. Bladder scan PVR minimal. She will leave urine sample at the lab later this week, trial of Myrbetriq. 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 Diabetes type 2, uncontrolled Surgical History History of colonoscopy History of repair of hiatal hernia History of cardiac catheterization Hx of hammer toe correction Hx of shoulder surgery Hx of tonsillectomy Hx laparoscopic cholecystectomy Hx of appendectomy Family History Brother Diabetes Father Lung cancer Mother HTN (hypertension) Social History Household Members: Family Housing: House Do you presently have visiting nurse or other home services: No Alcohol intake: current Alcohol intake frequency: does not drink Patient Tobacco Use Status: Former Tobacco user Tobacco use type: Cigarette Years Smoked: 20 e-Cigarette/Vaping Use: Never Used Second Hand Smoke Exposure: Yes service: No Current occupational status: retired Cognitive needs: No Hearing needs: No Vision needs: Yes (Glasses) Review of Systems Const All systems reviewed & are unremarkable except as noted in HPI and below Reports no additional complaints Eyes Reports no additional complaints ENT Reports no additional complaints Card Reports no additional complaints Resp Reports no additional complaints GI Reports no additional complaints Reports as per HPI Musc Reports no additional complaints Skin/Breast Reports system reviewed and no additional complaints, except as documented Neuro Reports no additional complaints Psych Reports no additional complaints Endo Reports no additional complaints Mark/Lymph Reports no additional complaints Aller/Immun Reports no additional complaints Physical Exam Const General: cooperative, healthy appearing and no acute distress Orientation/consciousness: patient oriented x3 HEENT Head: Yes normal to inspection, Yes normocephalic and Yes atraumatic Eyes Conjunctivae: conjunctivae normal Neck Neck: Yes normal visual inspection and Yes trachea midline Chest Chest palpation & inspection: normal inspection of the chest Resp Effort & Inspection: normal respiratory effort GI Inspection: Yes normal to inspection Palpation (GI): Soft to palpation Neuro General: patient oriented x3 Psych Appearance: grossly normal Office Procedures Post Void Residual Post Residual Void Post Void Residual (PVR): 0 [id number] Void Residual by ultrasound Assessment & Plan Assessment & Plan (1) Urinary incontinence: Code(s): R32 - Unspecified urinary incontinence Category: Medical (2) Urinary frequency: Code(s): R35.0 - Frequency of micturition Category: Medical Plan Trial of myrbetriq UA with reflex Orders: Orders AMB Urinalysis Automated 11/07/24 Z13.9 - Encounter for screening, unspecified AMB Post Void Residual by ultrasound 11/07/24 R32 - Unspecified urinary incontinence UA and rflx microscopic 11/07/24 R39.9 - Unspecified symptoms and signs involving the genitourinary system Medications: New mirabegron ER (Myrbetriq) 25 mg PO DAILY 30 tabs 2RF urine leakage Patient Instructions: The patient had an opportunity to ask questions regarding treatment plan. The patient expressed understanding and agreement with the above treatment plan. The patient is aware they should contact our office by phone for worsening of their current condition or the appearance of new symptoms. Compliance is encouraged with any medications and followup testing that is ordered. It is a privilege to be allowed the opportunity to participate in the urologic care of your patient. If you have any questions or concerns regarding treatment for the above conditions please do not hesitate to contact me. The office telephone contact is [phone]. This note is constructed in part using voice recognition software. While every effort has been made to ensure accuracy glue bone crusher errors may have been included. Yours sincerely, Emily Overton MD Coding Level of Care Code New Pt Level 4 (46532) Diagnoses Urinary incontinence R32 Urinary frequency R35.0 CPT Codes Post Residual Void - PVR CPT Code: 66575-[id number] Void Residual by ultrasound ([id number])
--- OUTSIDE RECORDS SUMMARY | 2024-11-08 02:54 | XMS_ITS ---
Author Organization [facility] Address [address] [facility] [place] [address] Care Team Providers Care Program Management Manager Name Role Phone Buddy Morrow MD Primary Care Provider Benjamin Skelton Unavailable [phone] Allergies Allergen (clinical drug ingredient) Drug/Non Drug Allergy documented on EMR Reaction Allergy Type Onset Date Status Novocain pass out Drug Allergy Active oxycodone Oxycodone HCl hives Drug Allergy Act gila Vicodin headache Drug Allergy Active REASON FOR VISIT At Risk Footcare Medications Medication SIG (Take, Route, Frequency, Duration) Notes Start Date End Date Status Vitamin D3 Active Lantus 25 units Subcutaneous Not-Taking Omeprazole Not-Takin g Jardiance Not-Taking Lisinopril 10 MG 1 tablet Orally Once a day for 30 day(s) Not-Taking Simvastatin 40mg daily Act gila Turmeric Curcumin Ac tive Metoprolol Tartrate 50mg 1x a day Active Niacin Active Naproxen 500mg prn PRN Activ e Levothyroxine Sodium 150 MCG 0.5 tablet every morning on an empty stomach Orally Once a day Active Lasix PRN Active Metoclopramide HCl PRN A ctive Lopressor Active metFORMIN HCl Active Cinnamon Active Gabapentin Active Fish Oil Active Bydureon Active Aspirin 81mg Active Pantoprazole Sodium 40 MG 1 tablet Orally Once a day Active Amitriptyline HCl 25mg daily Active Senokot Active Social History Tobacco Use: Social History Observation Description Date Details (start date - stop date) Former Smoker NA - NA Tobacco Use/Smoking Question Answer Notes Are you a: former smoker Additional Findings: Tobacco Non-User Current no n-smoker Alcohol Screen Question Answer Notes Did you have a drink containing alcohol in the p ast year? No Points 0 Interpretation Negative Tobacco use other than smoking: Question Answer Notes Are you an other tobacco user? No Vital Signs Height 5ft 4in in 03/27/2024 Weight 185 lbs 03/27/2024 BMI 31.75 kg/m2 03/27/2024 Blood pressure systolic 122 mm Hg 03/27/20 24 Blood pressure diastolic 74 mm Hg 024 Procedures Procedure Date Ordered Date Performed Result Body Sit e 16668-PPETUWC NAIL, 6 OR MORE 03/27/2024 N/A 51282-URBL SKIN LESIONS, OVER 4 03/27/2024 N/A Encounters Encounter Location Date Provider Diagnosis [facility] [address] [address] 03/27/2024 Benjamin Landeros Type 1 diabetes mellitus with diabetic polyneuropathy E10.42 and Tinea unguium B35.1 Assessments Encounter Date Diagnosis (ICD Code) Assessment Notes Treatment Notes Treatment Clinical Notes Section Notes 03/27/2024 Type 1 diabetes mellitus with diabetic polyneuropathy (ICD-10 - E10.42) 03/27/2024 Tinea unguium (ICD-10 - B35.1) Plan Of Treatment Pending Test Test Name Order Date 73849-KPFEYQM NAIL, 6 OR MORE 03/27/2024 44087-OEYT SKIN LESIONS, OVER 4 03/27/20 24 Next Appt Details Follow Up: prn, Reason: Provider Name:Benjamin Landeros , 01/15/2025 01:30:00 PM, [address] [place] [address], [phone], Procedure Notes * Category Sub-Category Detail Notes Debride Nail 6-10 Nail debridement Nail debridem ent performed extensively to reduce/remove overall nail length, girth, thickness, subungual debris, and necrotic tissue, by manual and electrical means through the use of a nail nipper and/or dremel, to more viable healthy nail plate or bed tissue 1-5. Silver nitrate used for any petechial bleeding as necessary. Patient chooses, no pharmaceutical tx (74416) Keratoma Treatment Parring or Cutting o f Benign Hyperkeratotic Lesion(s) 08474 ( >4 Lesions) - The Benign hyperkeratotic lesions, as described above were pared, and/or cut utilizing a sterile #15 blade, tissue nippers, and/or dremel Progress Notes * Miriam NOGUEIRA JDOB: (73 yo F)Acc No.[id number]:03/27/2024 Progress Note Patient:Tammie Martinez Provider:?Benjamin Landeros DPM :1950???Age:73 Y???Sex:Female D ate:03/27/2024 Address:[facility] [address] , [place], [id number] Pcp:Buddy Morrow MD Subjective: * Chief Complaints: * ???At Risk Footcare * HPI: ???At Risk footcare:?Pt States Last PCP Visit:?Date?12/27/2023 * ROS:?General/Constitutional:?Nausea?denies.?Vomiting?denies.?Hunger Thirst?denies.?Loss appetite?denies.?Chills?denies.?Fatigue?denies.?Fever?denies.?Night Sweats?denies.?Unexplained weight loss?denies.?Ophthalmologic:?Blurred vision?denies.?Red eye?denies.?HEENTM:?Dentures?denies.?Dizziness?denies.?Glasses/contacts? admits.?Retinopathy?denies.?Blurred/double vision?denies.?TMJ?denies.?Discharge/drainage?denies.?Implants?denies.?Hard of hearing denies.?Difficulty chewing/swallowing/speaking?denies.?Nose bleeds?denies.?Sore mouth?denies.?Swollen glands?denies.?Respiratory:?On Oxygen?denies.?Pneumonia/pleurisy?denies.?Bronchitis?denies.?Emphysema?denies.?C oughing?denies.?Cough blood?denies.?Shortness of breath?denies.?Wheezing?denies.?Cardiovascular:?Pacemaker?denies.?MVP?denies.?WPW?denies.?CHF?denies.?Heart attack?denies.?Septal defect?denies.?Rapid beat?denies.?Chest pain ?denies.?Atrial Fib.?denies.?Murmur/Palpitations?denies.?Gastrointestinal:?Hemorrhoids?denies.?Stomach/Abdominal pain?denies.?Dark blood stool?denies.?Irritable bowel ?denies.?Constipation?denies.?Diarrhea?denies.?Vomiting?denies.?Hematology:?Swelling?admits.?Bruising??admits, on aspirin.?Bleeding problem??admits, on anticoagulants.?Genitourinary:?Blood urine?denies.?Frequent/Painfu/urination/bladder control?denies.?Kidney stones?denies.?Infection (UTI)?denies.?Nephropathy?denies.?Musculoskeletal:?Hammertoes?admits.?Bunions?denies.?Scoliosis/kyphosis?denies.?Muscle cramps / walking?denies.?Generalized aches and pains?denies.?Weakness?denies.?Integ.:?Logan?denies.?Scars?denies.?Corns/calluses?admits.?Ingrown nails?admits.?Painful nails?denies.?Rashes?denies.?Neurologic:?Difficulty sleeping?denies.?Bipolar?denies.?Brain disorder?denies.?Balance trouble?denies.?Confusion?denies.?Fainting/blackouts?denies.?Headache?denies.?Tr emors?denies.? * Medical History:? * Surgical History:?appendecto my 1976cholecystectomy 1970foot surgery hammertoes bilateral feet 1990tonsillectomy 1993cataract surgery OD 06/18/2013retinal surgery OD 07/04/2013rotator cuff tear repair 04/26/2019hiatal hernia repair * Hospitalization/Major Diagno stic Procedure:?[facility]2017[facility] 02/27/2021 * Family History:?Mother: dece ased, diagnosed with Family history of arthritis, Unspecified essential hypertension.?Father: , diagnosed with Other malignant neoplasm of unspecified site.?Daughter(s): unknown.?Son(s): unknown.?Paternal Grand Mother: diagnosed with Diabetic - NIDDM, Unspecified cerebral artery occlusion with cerebral infarction.?2 son(s) , 1 daughter(s) . .? * Social History:?Tobacco Use:?Tobacco Use/Smoking?Are you a:?former smoker ?Additional Findings: Tobacco Non-User?Current non-smoker ?Tobacco use other than smoking?Are you an other tobacco user??No ???Drugs/Alcohol:?Drugs?Have you used drugs other than those for medical reasons in the past 12 months??No ?Alcohol Screen?Did you have a drink containing alcohol in the past year??No ?Points?0 ?Interpretation?Negative ???Miscellaneous:?no Caffeine. ?Children: yes. ?Exercise: yes, walking, 2-3 times per week. ?Marital status: . 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 * Medications:?TakingPantopraz ole Sodium 40 MG Tablet Delayed Release 1 tablet Orally Once a daySenokot Amitriptyline HCl 25mg dailyAspirin 81mg Bydureon Cinnamon Fish Oil Gabapentin Lasix , Notes: PRNLevothyroxine Sodium 150 MCG Tablet 0.5 tablet every morning on an empty stomach Orally Once a dayLopressor Metoclopramide HCl , Notes: PRNmetFORMIN HCl Metoprolol Tartrate , Notes: 50mg 1x a dayNaproxen 500mg prn, Notes: PRNNiacin Simvastatin 40mg dailyTurmeric Curcumin Vitamin D3 Taking Pantoprazole Sodium 40 MG Tablet Delayed Release 1 tablet Orally Once a dayTaking Senokot Taking Amitriptyline HCl 25mg dailyTaking Aspirin 81mg Taking Bydureon Taking Cinnamon Taking Fish Oil Taking Gabapentin Taking Lasix , Notes: PRNTaking Levothyroxine Sodium 150 MCG Tablet 0.5 tablet every morning on an empty stomach Orally Once a dayTaking Lopressor Taking Metoclopramide HCl , Notes: PRNTaking metFORMIN HCl Taking Metoprolol Tartrate , Notes: 50mg 1x a dayTaking Naproxen 500mg prn, Notes: PRNTaking Niacin Taking Simvastatin 40mg dailyTaking Turmeric Curcumin Taking Vitamin D3 Not-Taking/PRNOmeprazole Lantus Solution 25 units Subcutaneous Lisinopril 10 MG Tablet 1 tablet Orally Once a dayJardiance Medication List reviewed and reconciled with the patientNot-Taking/PRN Omeprazole Not-Taking/PRN Lantus Solution 25 units Subcutaneous Not-Taking/PRN Lisinopril 10 MG Tablet 1 tablet Orally Once a dayNot-Taking/PRN Jardiance Medication List reviewed and reconciled with the patient * Allergies:?Oxycodone HCl: hi vesVicodin: headacheNovocain: pass outyes[Allergies Verified] Objective: * Vitals:?Ht: 5ft 4in, Wt:185, BMI:31.75, Shoe size:9.5W, BP:122/74 mm Hg, BS:115. * ???Past Orders: ???Lab:HEMOGLOBIN A1C (GLYCO HEMOGLOBIN) (Order Date - 09/19/2023) (Collection Date - 09/19/2023) ? Value Reference Range ?HEMOGLOBIN A1C % (HH) 6.9 * Examination: ???Neurological: ?SENSORY:?Neurological exam demonstrates, reduced light touch sensation, reduced sharp/dull discrimination , B/L, 5.07 monofilament test performed at plantar aspects of 5 varied sites per foot shows sensation, reduced, B/L, Pt relates, paresthesia, shooting sensation, burning, especially in the evening, Forefoot, B/L.?Nails: ?NAILS are:?Elongated, overgrown, dystrophic, lytic, greater than 3mm thick,discolored and friable with crumbly malodorous subungual debris, TA, T1, T3, T4, T5, T6, T8, T9.?Dermatologic: ?SKIN FINDINGS:?Skin exam reveals Keratotic lesion(s) located at, Medial, IPJ, TA, Medial, IPJ, T5, SUB MTH (s), 1, Left , SUB MET (s), 2, B/L , SUB MTH (s), 3, B/L , SUB MTH (s), 5, Right , Heel, Left .? Assessment: * Assessment: 1.?Type 1 diabetes mellitus with diabetic polyneuropathy - E10.42?2.?Tinea unguium - B35.1? Plan: * Treatment: * Procedures:?Debride Nail 6-10:?Nail debridement?Nail debridement performed extensively to reduce/remove overall nail length, girth, thickness, subungual debris, and necrotic tissue, by manual and electrical means through the use of a nail nipper and/or dremel, to more viable healthy nail plate or bed tissue 1-5. Silver nitrate used for any petechial bleeding as necessary. Patient chooses, no pharmaceutical tx (77532).?Keratoma Treatment:?Parring or Cutting of Benign Hyperkeratotic Lesion(s)?29537 ( >4 Lesions) - The Benign hyperkeratotic lesions, as described above were pared, and/or cut utilizing a sterile #15 blade, tissue nippers, and/or dremel.? * Procedure Codes:?99376 DEBRI DE NAIL, 6 OR MORE, Modifiers: XS 78533 TRIM SKIN LESIONS, OVER 4, Modifiers: XS * Follow Up:?prn * Images: * Sign off status: Completed Addendum: * ? true * Provider:?Benjamin Landeros DPM Date:?2023 Generated for Stephanie smith/Jareth/Ania on:?11/08/2024 02:54 AM EST History and Physical Notes * HPI (History of Present Illness) Category Sub-Category Detail Notes Category Not es At Risk footcare Pt States Last PCP Visit: Date: 4 Examination Category Sub-Category Detail Notes Category Not es Neurological SENSORY: Neurological exa m demonstrates, reduced light touch sensation, reduced sharp/dull discrimination , B/L, 5.07 monofilament test performed at plantar aspects of 5 varied sites per foot shows sensation, reduced, B/L, Pt relates, paresthesia, shooting sensation, burning, especially in the evening, Forefoot, B/L Dermatologic SKIN FINDINGS: Skin exam reveal s Keratotic lesion(s) located at, Medial, IPJ, TA, Medial, IPJ, T5, SUB MTH (s), 1, Left , SUB MET (s), 2, B/L , SUB MTH (s), 3, B/L , SUB MTH (s), 5, Right , Heel, Left Nails NAILS are: Elongated, overg rown, dystrophic, lytic, greater than 3mm thick,discolored and friable with crumbly malodorous subungual debris, TA, T1, T3, T4, T5, T6, T8, T9
--- OUTSIDE RECORDS SUMMARY | 2024-11-08 02:54 | XMS_ITS | Patient Health Record ---
Author Organization [facility] Address [address] [facility] [address] [place] [address] Care Team Providers Care Lard Bleacher Name Role Phone Buddy Morrow MD Primary Care Provider Benjamin Skelton Unavailable [phone] Allergies Allergen (clinical drug ingredient) Drug/Non Drug Allergy documented on EMR Reaction Allergy Type Onset Date Status Novocain pass out Drug Allergy Active oxycodone Oxycodone HCl hives Drug Allergy Act gila Vicodin headache Drug Allergy Active Results Component Value Reference Range Notes HEMOGLOBIN A1C (GLYCOHEMOGLO BIN) Reviewed date:06/26/2024 01:45:50 PM Interpretation: Performing Lab: Notes/Report: HEMOGLOBIN A1C % (HH) 6.9 Reason For Referral No Information Medications Medication SIG (Take, Route, Frequency, Duration) Notes Start Date End Date Status Lantus 25 units Subcutaneous Not-Taking Metoclopramide HCl PRN A ctive Lisinopril 10 MG 1 tablet Orally Once a day for 30 day(s) Not-Taking Senokot Active metFORMIN HCl Active Jardiance Not-Taking Amitriptyline HCl 25mg daily Active Metoprolol Tartrate 50mg 1x a day Active Aspirin 81mg Active Naproxen 500mg prn PRN Activ e Bydureon Active Niacin Active Cinnamon Active Simvastatin 40mg daily Act gila Fish Oil Active Turmeric Curcumin Ac tive Gabapentin Active Vitamin D3 Active Lasix PRN Active Extra Depth Orthopedic Shoes (1 Pair) with Customized Heat Molded Multidensity Innersoles (3 Pair) as directed Dx: IDDM/Polyneuropathy (E10.42), Hammertoe Foot Deformity (M20.41,M20.42), Preulcerative Skin Lesion(s) (L85.1) 06/26/2024 Active Levothyroxine Sodium 150 MCG 0.5 tablet every morning on an empty stomach Orally Once a day Active Omeprazole Not-Takin g Lopressor Active Pantoprazole Sodium 40 MG 1 tablet Orally Once a day Active Immunizations Vaccine Route Administration Date Status Comme nts COVID-19 Moderna Vaccine Unknown 09/03/2022 Administere d 1st 02/15/21,03/15/21 10/12/21 Influenza Unknown 11/15/2017 Administered Influenza Unknown 11/03/2018 Administered Influenza Unknown 09/03/2022 Administered Influenza Unknown 09/20/2023 Administered Pneumococcal Unknown 10/13/2015 Administered Social History Tobacco Use: Social History Observation [...] Are you an other tobacco user? No Problems Problem Type SNOMED Code ICD Code Onset Dates Problem Status W/U Status Risk Notes Problem Acquired hammer toe of right foot (2708199450236483 ) Other hammer toe(s) (acquired), right foot (M20.41) Active confirmed Response to treatment, Improvemen t Problem Acquired hammer toe of left foot (4356848708697189 ) Other hammer toe(s) (acquired), left foot (M20.42) Active confirmed Response to treatment, Improvemen t Problem Polyneuropathy due to diabetes mellitus type I (775948520) 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 confirmed Vital Signs Blood pressure diastolic 74 mm Hg 10/09/2024 Height 5ft4in in 10/09/2024 Blood pressure systolic 103 mm Hg 10/09/2024 Weight 181 lbs 10/09/2024 BMI 31.07 kg/m2 10/09/2024 Procedures Procedure Date Ordered Date Performed Result Body Sit e 68723-SJVMFGW NAIL, 6 OR MORE 12/27/2023 N/A 85294-JBRO SKIN LESIONS, OVER 4 12/27/2023 N/A 05152-WLJYWHU NAIL, 6 OR MORE 03/27/2024 N/A 01440-THXT SKIN LESIONS, OVER 4 03/27/2024 N/A 78978-SIMSIYE NAIL, 6 OR MORE 06/26/2024 N/A 78121-NNAW SKIN LESIONS, OVER 4 06/26/2024 N/A 94257-KYBGXCL NAIL, 6 OR MORE 10/09/2024 N/A 82538-FRYT SKIN LESIONS, OVER 4 10/09/2024 N/A Encounters Encounter Location Date Provider Diagnosis [address] [address] 12/27/2023 Benjaminabram CrandallLeti Type 1 diabetes mellitus with diabetic polyneuropathy E10.42 and Tinea unguium B35.[address] [address] 03/27/2024 Benjaminabram CrandallLeti Type 1 diabetes mellitus with diabetic polyneuropathy E10.42 and Tinea unguium B35.[address] [address] 06/26/2024 Benjamin Leti Type 1 diabetes mellitus with diabetic polyneuropathy E10.42 ; Tinea unguium B35.1 ; Other hammer toe(s) (acquired), right foot M20.41 and Other hammer toe(s) (acquired), left foot M20.[address] [address] 10/09/2024 Benjaminabram CrandallLeti Type 1 diabetes mellitus with diabetic polyneuropathy E10.42 and Tinea unguium B35.1 Assessments Encounter Date Diagnosis (ICD Code) Assessment Notes Treatment Notes Treatment Clinical Notes Section Notes 12/27/2023 Type 1 diabetes mellitus with diabetic polyneuropathy (ICD-10 - E10.42) 12/27/2023 Tinea unguium (ICD-10 - B35.1) 03/27/2024 Type 1 diabetes mellitus with diabetic polyneuropathy (ICD-10 - E10.42) 03/27/2024 Tinea unguium (ICD-10 - B35.1) 06/26/2024 Type 1 diabetes mellitus with diabetic polyneuropathy (ICD-10 - E10.42) 10/09/2024 Type 1 diabetes mellitus with diabetic polyneuropathy (ICD-10 - E10.42) 10/09/2024 Tinea unguium (ICD-10 - B35.1) 06/26/2024 Tinea unguium (ICD-10 - B35.1) 06/26/2024 Other hammer toe(s) (acquired), right foot (ICD-10 - M20.41) Patient Educated with: DIABETIC FOOT CARE INSTRUCTIONS. pdf (DIABETIC FOOT CARE INSTRUCTIONS. pdf) 06/26/2024 Other hammer toe(s) (acquired), left foot (ICD-10 - M20.42) 10/09/2024 Other Plan Of Treatment Pending Test Test Name Order Date Hemoglobin A1c 02/11/2015 Hemoglobin A1c 12/02/2015 Hemoglobin A1c 06/03/2017 64920-SHPBITD NAIL, 6 OR MORE 10/09/2024 71941-CAYWVTZ NAIL, 6 OR MORE 09/12/2020 02325-PQDDGFD NAIL, 6 OR MORE 12/12/2020 66202-WWGJIAV NAIL, 6 OR MORE 03/13/2021 35013-YHYEKLT NAIL, 6 OR MORE 06/12/2021 27392-IZIEQSS NAIL, 6 OR MORE 09/18/2021 27983-MYWHDPC NAIL, 6 OR MORE 12/18/2021 39800-GYHTYVC NAIL, 6 OR MORE 03/23/2022 30740-FMFNQLC NAIL, 6 OR MORE 06/25/2022 90435-LTFSBIE NAIL, 6 OR MORE 09/24/2022 00409-QSLGCWF NAIL, 6 OR MORE 12/24/2022 09047-MLLIXYW NAIL, 6 OR MORE 03/25/2023 82952-LNVRWLV NAIL, 6 OR MORE 06/24/2023 93527-GEFUJFB NAIL, 6 OR MORE 09/27/2023 63270-OUWEGCY NAIL, 6 OR MORE 12/27/2023 38829-JXGMTSD NAIL, 6 OR MORE 03/27/2024 89036-OGCHLFJ NAIL, 6 OR MORE 06/26/2024 32058-WHTYHSE NAIL, 6 OR MORE 08/22/2015 00726-OORSEQM NAIL, 6 OR MORE 05/16/2015 77391-QSHETVR NAIL, 6 OR MORE 02/11/2015 17713-FAIDGIT NAIL, 6 OR MORE 11/02/2013 92707-WPBZYTM NAIL, 6 OR MORE 02/01/2014 72334-DDCGINY NAIL, 6 OR MORE 05/10/2014 97390-NPSERQV NAIL, 6 OR MORE 08/13/2014 50816-CAGFKBL NAIL, 6 OR MORE 11/12/2014 89998-LGGXGDS NAIL, 6 OR MORE 07/27/2011 61957-PPBLHFY NAIL, 6 OR MORE 10/15/2011 78750-ZVRMICT NAIL, 6 OR MORE 01/14/2012 05636-CSDUOVX NAIL, 6 OR MORE 04/11/2012 51016-MEZHEWV NAIL, 6 OR MORE 07/28/2012 31897-QAWVKSU NAIL, 6 OR MORE 10/13/2012 25049-OEZPSOK NAIL, 6 OR MORE 01/12/2013 38913-KJOSLGY NAIL, 6 OR MORE 04/13/2013 92750-NHCLGUM NAIL, 6 OR MORE 08/03/2013 07343-TUDUMOM NAIL, 6 OR MORE 12/02/2015 39351-GZTTFWM NAIL, 6 OR MORE 03/02/2016 72990-QNZNFKZ NAIL, 6 OR MORE 06/11/2016 14004-SUMHRYT NAIL, 6 OR MORE 09/10/2016 06089-QNSHHQE NAIL, 6 OR MORE 12/10/2016 58111-VIRTGFM NAIL, 6 OR MORE 03/04/2017 05823-ENVNCYC NAIL, 6 OR MORE 06/07/2017 66838-JNAGNZQ NAIL, 6 OR MORE 09/06/2017 01882-QTUGXBW NAIL, 6 OR MORE 12/09/2017 69225-NZGEPXR NAIL, 6 OR MORE 03/10/2018 74466-LGZIEBB NAIL, 6 OR MORE 06/13/2018 29044-SWYINHJ NAIL, 6 OR MORE 09/12/2018 55073-IFZCUAF NAIL, 6 OR MORE 12/26/2018 66183-GTCPOXO NAIL, 6 OR MORE 03/27/2019 73904-HPBLARE NAIL, 6 OR MORE 06/26/2019 31554-YECECTO NAIL, 6 OR MORE 09/25/2019 39887-BSINCHG NAIL, 6 OR MORE 12/25/2019 06789-PEIYVWM NAIL, 6 OR MORE 06/13/2020 17281- Debride <25 sq cm 08/03/2013 68992-UIQB SKIN LESIONS, OVER 4 11/02/20 13 57862-BVIE SKIN LESIONS, OVER 4 11/12/20 14 09211-AKWG SKIN LESIONS, OVER 4 08/13/20 14 73982-XPCA SKIN LESIONS, OVER 4 05/10/20 14 10802-YBBM SKIN LESIONS, OVER 4 02/02/20 14 66271-MRBG SKIN LESIONS, OVER 4 02/12/20 15 79939-FXOG SKIN LESIONS, OVER 4 05/16/20 15 41548-MJIE SKIN LESIONS, OVER 4 08/22/20 15 42364-IRQF SKIN LESIONS, OVER 4 12/02/19 16 84851-DKAG SKIN LESIONS, OVER 4 06/13/20 20 84362-VIWD SKIN LESIONS, OVER 4 12/25/19 20 39355-WFLM SKIN LESIONS, OVER 4 09/25/20 19 67559-NJKD SKIN LESIONS, OVER 4 06/26/20 19 70735-SFLZ SKIN LESIONS, OVER 4 03/27/20 19 00458-NVLK SKIN LESIONS, OVER 4 12/26/19 19 36930-LYSR SKIN LESIONS, OVER 4 09/12/20 18 56751-DGPO SKIN LESIONS, OVER 4 06/13/20 18 38745-GOUV SKIN LESIONS, OVER 4 03/10/20 18 76290-GWEV SKIN LESIONS, OVER 4 12/09/19 18 81868-BYLL SKIN LESIONS, OVER 4 09/06/20 17 47770-DCDH SKIN LESIONS, OVER 4 03/04/20 17 20949-FLVP SKIN LESIONS, OVER 4 06/07/20 17 26676-RTVU SKIN LESIONS, OVER 4 12/10/19 17 84277-XULD SKIN LESIONS, OVER 4 09/10/20 16 60909-RMUB SKIN LESIONS, OVER 4 06/11/20 16 87913-UQBT SKIN LESIONS, OVER 4 03/02/20 16 12625-MCKB SKIN LESIONS, OVER 4 06/26/20 24 02513-IDHL SKIN LESIONS, OVER 4 03/27/20 24 72869-PLDU SKIN LESIONS, OVER 4 12/27/19 24 82394-YGFE SKIN LESIONS, OVER 4 09/27/20 98955-ZGVF SKIN LESIONS, OVER 4 06/24/20 23 78336-DNMN SKIN LESIONS, OVER 4 03/25/20 23 46204-PGQU SKIN LESIONS, OVER 4 12/24/19 23 46016-YSNZ SKIN LESIONS, OVER 4 09/24/20 38462-TGJM SKIN LESIONS, OVER 4 07/29/20 22 03947-STLK SKIN LESIONS, OVER 4 03/23/20 22 39723-GEUV SKIN LESIONS, OVER 4 12/18/19 22 89091-BKWL SKIN LESIONS, OVER 4 09/18/20 80401-MMUP SKIN LESIONS, OVER 4 06/12/20 21 55918-VIKY SKIN LESIONS, OVER 4 03/13/20 71976-ZGFL SKIN LESIONS, OVER 4 12/12/19 21 01434-UFZG SKIN LESIONS, OVER 4 09/12/20 17413-XUVP SKIN LESIONS, OVER 4 10/09/20 24 35481-RMWM SKIN LESIONS, 2 TO 4 07/27/20 11 41064-EQHH SKIN LESIONS, 2 TO 4 04/13/20 13 45321-OIRJ SKIN LESIONS, 2 TO 4 01/12/20 13 12756-LKYX SKIN LESIONS, 2 TO 4 10/13/20 12 97572-BHRI SKIN LESIONS, 2 TO 4 07/28/20 12 99930-SAXI SKIN LESIONS, 2 TO 4 04/11/20 12 34368-QPDB SKIN LESIONS, 2 TO 4 01/14/20 12 45405-WQVQ SKIN LESIONS, 2 TO 4 10/15/20 11 HEMOGLOBIN A1C (GLYCOHEMOGLOBIN) 020 Next Appt Details Provider Name:Benjamin Landeros , 01/15/2025 01:30:00 PM, [address] [facility], [place], [address], Insurance Providers Payer Name Payer Address Payer Phone Subscriber Number Group Number Insured Name Patient Relationship to Insured Coverage Start Date Coverage End Date [employer] Medicare Adv-74936 [address] [address] [place] [address] [id number] Miriam Henry Self - patient is the insured [facility] Claims [facility] Office of Community Care [address] [address] [place] [address] [id number] Miriam Henry Self - patient is the insured Medical (General) History Medical History History ICD Code hyperlipidemia thyroid disorder mumps measles hypertension headaches/migraines chicken pox cataracts Hiatal hernia Knee Pain type II diabetes Surgical History Surgery Date(Month/Year) appendectomy 1975 cholecystectomy 1970 foot surgery hammertoes bilateral feet 1 990 tonsillectomy 1992 cataract surgery OD 06/18/2013 retinal surgery OD 07/04/2013 rotator cuff tear repair 04/26/2019 hiatal hernia repair Cataract surgery 04/30/24 Esophageal recon 2023 Hospitalization History Reason Date(Month/Year) [facility] virus 11/21/2017 [facility]- hiatal hernia surgery, esophagus surgery 05/17/24 [facility] [place] 02/27/2021 [facility] [place]- Hiatal hernia flare up 05/21/19
--- OUTSIDE RECORDS SUMMARY | 2024-11-08 02:54 | XMS_ITS ---
[facility] Address [address] [place], [place] [address] Care Team Providers Care Tail Puller Name Role Phone Buddy Morrow MD Primary Care Provider Benjamin Skelton Unavailable [phone] Allergies Allergen (clinical drug ingredient) Drug/Non Drug Allergy documented on EMR Reaction Allergy Type Onset Date Status Novocain pass out Drug Allergy Active oxycodone Oxycodone HCl hives Drug Allergy Act gila Vicodin headache Drug Allergy Active REASON FOR VISIT At Risk Footcare Medications Medication SIG (Take, Route, Frequency, Duration) Notes Start Date End Date Status Amitriptyline HCl 25mg daily Active Aspirin 81mg Active Bydureon Active Cinnamon Active Fish Oil Active Senokot Active Jardiance Not-Taking Pantoprazole Sodium 40 MG 1 tablet Orally Once a day Active Lantus 25 units Subcutaneous Not-Taking Lisinopril 10 MG 1 tablet Orally Once a day for 30 day(s) Not-Taking Simvastatin 40mg daily Act gila Turmeric Curcumin Ac tive Vitamin D3 Active Extra Depth Orthopedic Shoes (1 Pair) with Customized Heat Molded Multidensity Innersoles (3 Pair) as directed Dx: IDDM/Polyneuropathy (E10.42), Hammertoe Foot Deformity (M20.41,M20.42), Preulcerative Skin Lesion(s) (L85.1) 06/26/2024 Active Omeprazole Not-Takin g metFORMIN HCl Active Metoprolol Tartrate 50mg 1x a day Active Naproxen 500mg prn PRN Activ e Niacin Active Metoclopramide HCl PRN A ctive Gabapentin Active Lasix PRN Active Levothyroxine Sodium 150 MCG 0.5 tablet every morning on an empty stomach Orally Once a day Active Lopressor Active Social History Tobacco Use: Social History [...] other tobacco user? No Vital Signs Height 5ft4in in 10/09/2024 Weight 181 lbs 10/09/2024 BMI 31.07 kg/m2 10/09/2024 Blood pressure systolic 103 mm Hg 10/09/20 Blood pressure diastolic 74 mm Hg 024 Procedures Procedure Date Ordered Date Performed Result Body Sit e 08586-HXQIOEE NAIL, 6 OR MORE 10/09/2024 N/A 76654-[id number] SKIN LESIONS, OVER 4 10/09/2024 N/A Encounters Encounter Location Date Provider Diagnosis [facility] [address] [address] 10/09/2024 Benjamin Landeros Type 1 diabetes mellitus with diabetic polyneuropathy E10.42 and Tinea unguium B35.1 Assessments Encounter Date Diagnosis (ICD Code) Assessment Notes Treatment Notes Treatment Clinical Notes Section Notes 10/09/2024 Type 1 diabetes mellitus with diabetic polyneuropathy (ICD-10 - E10.42) 10/09/2024 Tinea unguium (ICD-10 - B35.1) 10/09/2024 Other Plan Of Treatment Pending Test Test Name Order Date [id number]-[id number] NAIL, 6 OR MORE 10/09/2024 01816-UZXP SKIN LESIONS, OVER 4 10/09/20 24 Next Appt Details Follow Up: prn, Reason: Provider Name:Benjamin Landeros , 01/15/2025 01:30:00 PM, [address] [place] [address], [phone], Procedure Notes * Category Sub-Category Detail Notes Debride Nail 6-10 Nail debridement Performance o f this nail treatment by a nonprofessional would put this patients foot and overall health at risk. Therefore, debridement to affected nail(s), as described in exam, was performed extensively to reduce/remove overall nail length, girth, thickness, subungual debris, and necrotic tissue, by manual and/or electrical means through the use of a nail nipper and/or dremel-type precision jig grinder, to a more viable healthy nail plate or bed tissue 6-10. Silver nitrate used for any petechial bleeding as necessary. Definitive antifungal treatment options have been reviewed and discussed with the patient. The patient chooses, no pharmaceutical tx - 05596 Keratoma Treatment Parring or Cutting o f Benign Hyperkeratotic Lesion(s) (-57) More than 4 Lesions - The Benign hyperkeratotic lesions, as described in exam, were pared, and/or cut utilizing a sterile 15 blade, tissue nippers, and/or dremel - 22712 Progress Notes * Miriam NOGUEIRA JDOB: (74 yo F)Acc No.[id number]:10/09/2024 Progress Note Patient:?ROLANDOODILIA Tammie yonathan Ward Provider:?Benjamin Landeros DPM :1950???Age:74 Y???Sex:Female D ate:10/09/2024 Address:[facility] [address], [facility] Pcp:Buddy Morrow MD Subjective: * Chief Complaints: * ???At Risk Footcare * HPI: ???At Risk footcare:?Pt States Last PCP Visit:?Date?08/15/2024 * ROS:?General/Constitutional:?Nausea?denies.?Vomiting?denies.?Hunger Thirst?denies.?Loss appetite?denies.?Chills?denies.?Fatigue?denies.?Fever?denies.?Night Sweats?denies.?Unexplained weight loss?denies.?Ophthalmologic:?Blurred [...] 07/04/2013rotator cuff tear repair 04/26/2019hiatal hernia repair Cataract surgery 04/30/24Esophageal recon 2023 * Hospitalization/Major Diagno stic Procedure:?[facility] virus 11/21/2017[facility]- Hiatal [facility]nia flare up 05/21/19[facility]-Hiatal Hernia flare up 02/27/2021[facility]- hiatal hernia surgery, esophagus surgery 05/17/24 * Family History:?Mother: dece ased, diagnosed with Unspecified essential hypertension, Family history of arthritis.?Father: , diagnosed with Other malignant neoplasm of [...] alcohol in the past year??No ?Points?0 ?Interpretation?Negative ???Miscellaneous:?Caffeine: no. ?Children: yes. ?Exercise: yes, walking, 2-3 times per week. ?Marital status: . 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 * Medications:?TakingPantopraz ole Sodium 40 MG Tablet Delayed Release 1 tablet Orally Once a day Senokot Amitriptyline HCl 25mg daily Aspirin 81mg Bydureon Cinnamon Fish Oil Gabapentin Lasix , Notes to Pharmacist: PRNLevothyroxine Sodium 150 MCG Tablet 0.5 tablet every morning on an empty stomach Orally Once a day Lopressor Metoclopramide HCl , Notes to Pharmacist: PRNmetFORMIN HCl Metoprolol Tartrate , Notes to Pharmacist: 50mg 1x a dayNaproxen 500mg prn , Notes to Pharmacist: PRNNiacin Simvastatin 40mg daily Turmeric Curcumin Vitamin D3 Extra Depth Orthopedic Shoes (1 Pair) with Customized Heat Molded Multidensity Innersoles (3 Pair) as directed Dx: IDDM/Polyneuropathy (E10.42), Hammertoe Foot Deformity (M20.41,M20.42), Preulcerative Skin Lesion(s) (L85.1) Taking Pantoprazole Sodium 40 MG Tablet Delayed Release 1 tablet Orally Once a day Taking Senokot Taking Amitriptyline HCl 25mg daily Taking Aspirin 81mg Taking Bydureon Taking Cinnamon Taking Fish Oil Taking Gabapentin Taking Lasix , Notes to Pharmacist: PRNTaking Levothyroxine Sodium 150 MCG Tablet 0.5 tablet every morning on an empty stomach Orally Once a day Taking Lopressor Taking Metoclopramide HCl , Notes to Pharmacist: PRNTaking metFORMIN HCl Taking Metoprolol Tartrate , Notes to Pharmacist: 50mg 1x a dayTaking Naproxen 500mg prn , Notes to Pharmacist: PRNTaking Niacin Taking Simvastatin 40mg daily Taking Turmeric Curcumin Taking Vitamin D3 Taking Extra Depth Orthopedic Shoes (1 Pair) with Customized Heat Molded Multidensity Innersoles (3 Pair) as directed Dx: IDDM/Polyneuropathy (E10.42), Hammertoe Foot Deformity (M20.41,M20.42), Preulcerative Skin Lesion(s) (L85.1) Not-Taking/PRNOmeprazole Lantus Solution 25 units Subcutaneous Lisinopril 10 MG Tablet 1 tablet Orally Once a day Jardiance Medication List reviewed and reconciled with the patientNot-Taking/PRN Omeprazole Not-Taking/PRN Lantus Solution 25 units Subcutaneous Not-Taking/PRN Lisinopril 10 MG Tablet 1 tablet Orally Once a day Not-Taking/PRN Jardiance Medication List reviewed and reconciled with the patient * Allergies:?Oxycodone HCl: hi vesVicodin: headacheNovocain: pass outyes[Allergies Verified] Objective: * Vitals:?Ht: 5ft4in, Wt:181, BMI: 31.07, Shoe size:9.5W, BP:103/74mm Hg, BS:105, Ht-cm: 162.56 cm, Wt-k.1 kg. * Examination: ???Neurological: ?SENSORY:?Neurological exam demonstrates, reduced light touch sensation, reduced sharp/dull discrimination , B/L, 5.07 monofilament test performed at plantar aspects of 5 varied sites per foot shows sensation, reduced, B/L, Pt relates, paresthesia, shooting sensation, burning, especially in the evening, Forefoot, B/L.?Nails: ?NAILS are:?Elongated, overgrown, dystrophic, lytic, greater than 3mm thick, discolored and friable with crumbly malodorous subungual debris, TA, T1, T3, T4, T5, T6, T8, T9, remaining nails are elongated, overgrown, dystrophic.?Dermatologic: ?SKIN FINDINGS:?Skin exam reveals Keratotic lesion(s) located at, Medial, IPJ, TA, Medial, IPJ, T5, SUB MTH (s), 1, Left , SUB MET (s), 2, B/L , SUB MTH (s), 3, B/L , SUB MTH (s), 5, Right , Heel, Left .? Assessment: * Assessment: 1.?Type 1 diabetes mellitus with diabetic polyneuropathy - E10.42 (Primary)???2.?Tinea unguium - B35.1??? Plan: * Treatment: * Procedures:?Debride Nail 6-10:?Nail debridement?Performance of this nail treatment by a nonprofessional would put this patients foot and overall health at risk. Therefore, debridement to affected nail(s), as described in exam, was performed extensively to reduce/remove overall nail length, girth, thickness, subungual debris, and necrotic tissue, by manual and/or electrical means through the use of a nail nipper and/or dremel-type precision jig grinder, to a more viable healthy nail plate or bed tissue 6-10. Silver nitrate used for any petechial bleeding as necessary. Definitive antifungal treatment options have been reviewed and discussed with the patient. The patient chooses, no pharmaceutical tx - 60122.?Keratoma Treatment:?Parring or Cutting of Benign Hyperkeratotic Lesion(s)?(-57) More than 4 Lesions - The Benign hyperkeratotic lesions, as described in exam, were pared, and/or cut utilizing a sterile 15 blade, tissue nippers, and/or dremel - 89548.? * Procedure Codes:?16714 DEBRI DE NAIL, 6 OR MORE, Modifiers: XS 23040 TRIM SKIN LESIONS, OVER 4, Modifiers: XS * Follow Up:?prn * Images: * Sign off status: Completed true * Provider:?Benjamin Landeros DPM Date:?2023 Generated for Stephanie smith/Jareth/Ania on:?11/08/2024 02:53 AM EST History and Physical Notes * [...] overg rown, dystrophic, lytic, greater than 3mm thick, discolored and friable with crumbly malodorous subungual debris, TA, T1, T3, T4, T5, T6, T8, T9, remaining nails are elongated, overgrown, dystrophic
--- OUTSIDE RECORDS SUMMARY | 2024-11-08 02:54 | XMS_ITS ---
Author Organization [facility] Address [address] [facility] [place] [address] Care Team Providers Care Catering Coordinator Name Role Phone Buddy Morrow MD Primary Care Provider Benjamin Skelton Unavailable [phone] Allergies Allergen (clinical drug ingredient) Drug/Non Drug Allergy documented on EMR Reaction Allergy Type Onset Date Status Novocain pass out Drug Allergy Active oxycodone Oxycodone HCl hives Drug Allergy Act gila Vicodin headache Drug Allergy Active REASON FOR VISIT At Risk Footcare, Toe Irritation Medications Medication SIG (Take, Route, Frequency, Duration) Notes Start Date End Date Status Omeprazole Not-Takin g Vitamin D3 Active Lisinopril 10 MG 1 tablet Orally Once a day for 30 day(s) Not-Taking Lantus 25 units Subcutaneous Not-Taking Jardiance Not-Taking Turmeric Curcumin Ac tive Naproxen 500mg prn PRN Activ e Metoprolol Tartrate 50mg 1x a day Active Simvastatin 40mg daily Act gila Niacin Active Lasix PRN Active Lopressor Active Levothyroxine Sodium 150 MCG 0.5 tablet every morning on an empty stomach Orally Once a day Active metFORMIN HCl Active Metoclopramide HCl PRN A ctive Gabapentin Active Fish Oil Active Extra Depth Orthopedic Shoes (1 Pair) with Customized Heat Molded Multidensity Innersoles (3 Pair) as directed Dx: IDDM/Polyneuropathy (E10.42), Hammertoe Foot Deformity (M20.41,M20.42), Preulcerative Skin Lesion(s) (L85.1) 06/26/2024 Active Cinnamon Active Bydureon Active Aspirin 81mg Active Amitriptyline HCl 25mg daily Active Senokot Active Pantoprazole Sodium 40 MG 1 tablet Orally Once a day Active Social History Tobacco Use: Social History Observation Description Date Details (start date - stop date) Former Smoker NA - NA Tobacco Use/Smoking Question Answer Notes Are you a: former smoker Additional Findings: Tobacco Non-User Current no n-smoker Tobacco use other than smoking: Question Answer Notes Are you an other tobacco user? No Vital Signs Height 5ft4in in 06/26/2024 Weight 181 lbs 06/26/2024 BMI 31.07 kg/m2 06/26/2024 Blood pressure systolic 134 mm Hg 06/26/20 24 Blood pressure diastolic 79 mm Hg 024 Procedures Procedure Date Ordered Date Performed Result Body Sit e 56342-NZTTRFQ NAIL, 6 OR MORE 06/26/2024 N/A 17274-MAWF SKIN LESIONS, OVER 4 06/26/2024 N/A Encounters Encounter Location Date Provider Diagnosis [facility] [place] [address] [place] [address] 06/26/2024 Benjamin Landeros Type 1 diabetes mellitus with diabetic polyneuropathy E10.42 ; Tinea unguium B35.1 ; Other hammer toe(s) (acquired), right foot M20.41 and Other hammer toe(s) (acquired), left foot M20.42 Assessments Encounter Date Diagnosis (ICD Code) Assessment Notes Treatment Notes Treatment Clinical Notes Section Notes 06/26/2024 Type 1 diabetes mellitus with diabetic polyneuropathy (ICD-10 - E10.42) 06/26/2024 Tinea unguium (ICD-10 - B35.1) 06/26/2024 Other hammer toe(s) (acquired), right foot (ICD-10 - M20.41) Patient Educated with: DIABETIC FOOT CARE INSTRUCTIONS. pdf (DIABETIC FOOT CARE INSTRUCTIONS. pdf) 06/26/2024 Other hammer toe(s) (acquired), left foot (ICD-10 - M20.42) Plan Of Treatment Medication Medication Name Sig Start Date Stop Date Notes Extra Depth Orthopedic Shoes (1 Pair) with Customized Heat Molded Multidensity Innersoles (3 Pair) as directed Dx: IDDM/Polyneuropathy (E10.42), Hammertoe Foot Deformity (M20.41,M20.42), Preulcerative Skin Lesion(s) (L85.1) 06/26/2024 Treatment Notes Assessment Notes Other hammer toe(s) (acquired), right fo ot Patient Educated with: DIABETIC FOOT CARE INSTRUCTIONS.pdf (DIABETIC FOOT CARE INSTRUCTIONS.pdf) Pending Test Test Name Order Date 33938-XKVKGHH NAIL, 6 OR MORE 06/26/2024 01964-HGVS SKIN LESIONS, OVER 4 06/26/20 24 Next Appt Details Follow Up: prn, Reason: Provider Name:Benjamin Landeros , 01/15/2025 01:30:00 PM, [address] [place] [address], [phone], Procedure Notes * Category Sub-Category Detail Notes [...] as necessary. Patient chooses, no pharmaceutical tx (47205) Keratoma Treatment Parring or Cutting o f Benign Hyperkeratotic Lesion(s) 60390 ( >4 Lesions) - The Benign hyperkeratotic lesions, as described above were pared, and/or cut utilizing a sterile #15 blade, tissue nippers, and/or dremel Progress Notes * Miriam NOGUEIRA JDOB: (73 yo F)Acc No.[id number]:06/26/2024 Progress Note Patient:?Tammie Nogueira Provider:?Benjamin Landeros DPM :1950???Age:73 Y???Sex:Female D ate:06/26/2024 Address[address], [id number] Pcp:Buddy Morrow MD Subjective: * Chief Complaints: * ???At Risk FootcareToe Irrit ation * HPI: ???At Risk footcare:?Pt States Last PCP Visit:?Date?06/18/2024 ???Toe pain:?Location:?B/L feet.?Duration:?several years.?Course:?worse.?Aggravated by:?shoes, any pressure.?Treatments:?change in shoes.? * ROS:?General/Constitutional:?Nausea?denies.?Vomiting?denies.?Hunger Thirst?denies.?Loss appetite?denies.?Chills?denies.?Fatigue?denies.?Fever?denies.?Night Sweats?denies.?Unexplained weight loss?denies.?Ophthalmologic:?Blurred [...] than smoking?Are you an other tobacco user??No ???Miscellaneous:?no Caffeine. ?Children: yes. ?Exercise: yes, walking, 2-3 times per week. ?Marital status: . 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 * Medications:?TakingPantopraz ole Sodium 40 MG Tablet [...] outyes[Allergies Verified] Objective: * Vitals:?Ht: 5ft4in, Wt:181, BMI:31.07, Shoe size: 9.5W, BP:134/79 mm Hg, BS: 139, Ht-cm: 162.56 cm, Wt-k.1 kg. * ???Past Orders: ???Lab:HEMOGLOBIN A1C (GLYCO HEMOGLOBIN) (Order Date - 03/28/2024) (Collection Date - 03/28/2024) ? Value Reference Range ?HEMOGLOBIN A1C % [...] MTH (s), 5, Right , Heel, Left .?Orthopedic: ?MUSCLE STRENGTH:?5/5 all groups in a symmetrical fashion , B/L.?FOOT MORPHOLOGY:?Pes Planus structure, No Charcot collapse/destruction noted at MTJ.?DIGITAL DEFORMITIES:?Digital contracture, PIPJ, 2-5 B/L, incompl-reducible to push-up test, no over, nor underlapping , with evidence of shoe producing skin irritation.?FOOTWEAR:?worn, OT were inspected and noted to be severely worn , in poor condition not giving proper support at the present time , shoe gear properties exacerbate patients foot/toe deformity.?Ophthalmology Referral: ?DIABETES EYE EXAM?General Examination: ?GENERAL APPEARANCE:?Reveals a pleasant, alert, well nourished, well developed, well hydrated individual, who demonstrates proper attention to hygiene/body habitus, and is in no acute distress , Pt serves as own historian for office visit today.?ORIENTED:?person, place, and time.?FOOT EXAM:?Footwear Evaluation? Assessment: * Assessment: 1.?Type 1 diabetes mellitus with diabetic polyneuropathy - E10.42?2.?Tinea unguium - B35.1?3.?Other hammer toe(s) (acquired), right foot - M20.41 (Primary), Chronic problem, Worse (4),Rx Management (4)?4.?Other hammer toe(s) (acquired), left foot - M20.42, Chronic problem, Worse (4),Rx Management (4)? Plan: * Treatment: 2.?Type 1 diabetes mellitus with diabetic polyneuropathy?Procedure: 25033-CZYAZAK NAIL, 6 OR MORE ?Procedure: 82438-UTOW SKIN LESIONS, OVER 4 * Procedures:?Debride Nail 6-10:?Nail debridement?Nail debridement performed extensively to reduce/remove overall nail length, girth, thickness, subungual debris, and necrotic tissue, by manual and electrical means through the use of a nail nipper and/or dremel, to more viable healthy nail plate or bed tissue 1-5. Silver nitrate used for any petechial bleeding as necessary. Patient chooses, no pharmaceutical tx (65000).?Keratoma Treatment:?Parring or Cutting of Benign Hyperkeratotic Lesion(s)?00343 ( >4 Lesions) - The Benign hyperkeratotic lesions, as described above were pared, and/or cut utilizing a sterile #15 blade, tissue nippers, and/or dremel.? * Procedure Codes:?78102 DEBRI DE NAIL, 6 OR MORE, Modifiers: XS 76313 TRIM SKIN LESIONS, OVER 4, Modifiers: XS * Preventive Medicine:? ??Counseling:?Discussion:?-14: Office or other outpatient visit for the evaluation and management of an established patient, which required a medically appropriate history and/or examination and MODERATE level of DECISION MAKING for: 1 OR MORE CHRONIC PROBLEM(S) THATS WORSENING, 2 STABLE CHRONIC PROBLEMS, A NEWLY DIAGNOSED PROBLEM WITH UNCERTAIN PROGNOSIS, AN ACUTE COMPLICATED INJURY WITH MULTIPLE TREATMENT OPTIONS, OR AN ACUTE PROBLEM WITH ACCOMPANYING SYSTEMIC SYMPTOMS, THAT POSE(S) A MODERATE RISK OF MORBIDITY. THIS CONDITION MAY ALSO INCLUDE RX DRUG MANAGEMENT, OR A DECISON FOR MINOR SURGERY. The visit on the day of the encounter encompassed interpreting the data and educating the patient as to the nature of their condition, treatment options available according to their individual PMH, meds, allergies, and overall health/living conditions, as well as any potential risks or complications that may occur from a failure to adhere to, and participate in, the recommended course of therapy. The discussion included a complete verbal, and/or written explanation of the examination results, any x-rays taken, the proposed diagnosis, and outline of the treatment plan. A schedule for future care needs was also explained. The patient verbalized an understanding of the instructions at this time and agreed to be an active participant in their treatment. If the patient should think of any questions or concerns after the visit, I have encouraged the patient to call the office.?Digital Surgery:?Digital surgery was discussed with the patient, We elected to try conservative treatment at the present time, due to the patients medical history and increased asssociated post-operative risks.?Digital Treatment:?HT- I explained to the patient the possible etiologies of Hammertoes, including genetics/foot type/shoegear/activity level/exercise routine and the risks/benefits of all the different treatment options for their pain including: No treatment at all, Rest, Ice, New/supportive/wider/deeper Shoegear, Digital Padding/Strapping/Taping/Bracing/Gel protective sleeves, Foot/Ankle AFO Bracing, Stretching exercises, Deep Tissue Massage, Arch support/shoe inserts with splay metatarsal padding, and Custom orthoses. I insisted that any digital devices be removed daily and not worn overnight for safety. The patient is to carefully examine the toes daily for any skin irritation while using any splinting or padding device. The advantages and disadvantages of each option were discussed and the patients questions re: shoegear, padding, custom vs prefabricated inserts, activity level, and consistency in home treatment regimens for optimal success were answered to their verbally confirmed satisfaction.?Shoe Gear Counseling:?SHOE Rx - The patient was counseled in great detail on their muscoloskeletal foot and toe deformities which coincided with the dermatological presentations visualized on exam. We discussed how their deformities put the integrity of their feet at risk for potential pedal complications which makes the accomidative diabetic shoes and cutomizable inserts medically necessary. We discussed the different shoe and insert treatment types and options, as well as the important advantages for adhering to regularly wearing these accomidative devices daily. The patient was made aware of the fact that a failure to abide by these recommedations may be deleterious to their foot health as they are able to prevent many pedal complications such as skin irritation, skin ulceration, infection, and even loss of toe/foot/leg/or life. Time was also spent with the patient dispensing and discussing proper diabetic footcare techniques including daily skin moisturization, daily foot inspection for any interruption in skin integrity including open lesions, or sign of infection such as redness/malodor/drainage/swelling. Also discussed and recommended were procedures regarding daily shoe inspection for the presence of internal foreign bodies as well as any visualized irregular shoe or insert wear. Patient questions re: shoes, inserts, and self foot inspections were answered to their satisfaction as the patient verbally confirmed a full understanding of the above information. A Rx for Extra Depth Orthopedic Shoes with 3 pair of custom heat-molded inserts was dispensed.? ??Screening/Special Tests:?Fall Risk?Assessment:?Performed ?Plan of Care:?Documented ?Screening:?One fall without injury in the past year ?FALLS: Screening for Future Fall Risk?Have you had two or more falls in the past year??No ?Have you had any falls with injury in the past year??Yes * Follow Up:?prn * Images: * Sign off status: Completed Addendum: * ? true * Provider:?Benjamin Landeros DPM Date:?2023 Generated for Stephanie smith/Jareth/Ania on:?11/08/2024 02:54 AM EST History and Physical Notes * HPI (History of Present Illness) Category Sub-Category Detail Notes Category Not es Toe pain Location: B/L feet Duration: several years Course: worse Aggravated by: shoes, any pressure Treatments: change in shoes At Risk footcare Pt States Last PCP [...] MTH (s), 5, Right , Heel, Left Orthopedic FOOT MORPHOLOGY: Pes Planus stru cture, No Charcot collapse/destruction noted at MTJ FOOTWEAR: worn, OT were inspec olga and noted to be severely worn , in poor condition not giving proper support at the present time , shoe gear properties exacerbate patients foot/toe deformity DIGITAL DEFORMITIES: Digital contracture , PIPJ, 2-5 B/L, incompl-reducible to push-up test, no over, nor underlapping , with evidence of shoe producing skin irritation MUSCLE STRENGTH: 5/5 all groups in a symmetrical fashion , B/L General Examination GENERAL APPEARANCE: Reveals a pleasant, alert, well nourished, well developed, well hydrated individual, who demonstrates proper attention to hygiene/body habitus, and is in no acute distress , Pt serves as own historian for office visit today FOOT EXAM: Lower Extremity Neurological Exa m performed:: Yes ORIENTED: person, place, and t rani Footwear Evaluation Footwear Evaluation performe d:: Yes Ophthalmology Referral DIABETES EYE EXAM Diabetic Retinopa thy Screening:: Yes Findings of Diabetic Eye Exam:: no retin opathy Nails NAILS are: Elongated, overg rown, dystrophic, lytic, greater than 3mm thick,discolored and friable with crumbly malodorous subungual debris, TA, T1, T3, T4, T5, T6, T8, T9
== END 2024-11-07 16:06 | disposition home or self-care (01) ==
PROVIDERS: PCP Internal Medicine; Visit Provider Urology
DX: R32 Unspecified urinary incontinence (principal); R35.0 Frequency of micturition
CPT/HCPCS: 99204

== ENCOUNTER → 2024-11-07 14:51 | Outpatient (BNVA) | payer MEDICARE, OTHER, SELFPAY | PROVIDERS: PCP Internal Medicine; Visit Provider Urology | DX: Z76.89 Persons encountering health services in other specified circumstances (principal); R32 Unspecified urinary incontinence | CPT/HCPCS: 51798 ==

== ENCOUNTER 2024-12-05 11:08 | Outpatient (REF) | payer MEDICARE, OTHER, SELFPAY ==
--- OUTSIDE RECORDS SUMMARY | 2024-12-05 11:31 | XMS_ITS ---
Author Organization [facility] Address [address] [facility] [place], [place] [address] Care Team Providers Care Travel Administrator Name Role Phone Buddy Morrow MD Primary Care Provider Benjamin Skelton Unavailable [phone] Allergies Allergen (clinical drug ingredient) Drug/Non Drug [...] Ordered Date Performed Result Body Sit e 37316-ZFIESZD NAIL, 6 OR MORE 10/09/2024 N/A 05842-VFLI SKIN LESIONS, OVER 4 10/09/2024 N/A Encounters Encounter Location Date Provider Diagnosis [facility] [address] [address] 10/09/2024 Benjamin Landeros Type 1 diabetes mellitus with diabetic polyneuropathy E10.42 and Tinea unguium B35.1 Assessments Encounter Date Diagnosis (ICD Code) Assessment Notes Treatment Notes Treatment Clinical Notes Section Notes 10/09/2024 Type 1 diabetes mellitus with diabetic polyneuropathy (ICD-10 - E10.42) 10/09/2024 Tinea unguium (ICD-10 - B35.1) 10/09/2024 Other Plan Of Treatment Pending Test Test Name Order Date 60168-HPWKCZQ NAIL, 6 OR MORE 10/09/2024 31805-ATMU SKIN LESIONS, OVER 4 10/09/20 24 Next Appt Details Follow Up: prn, Reason: Provider Name:Benjamin Landeros , 01/15/2025 01:30:00 PM, [address] [place] [address], [phone], Procedure Notes * Category Sub-Category Detail Notes [...] use of a nail nipper and/or dremel-type cutter grinder operator, to a more viable healthy nail plate or bed tissue 6-10. Silver nitrate used for any petechial bleeding as necessary. Definitive antifungal treatment options have been reviewed and discussed with the patient. The patient chooses, no pharmaceutical tx - 61195 Keratoma Treatment Parring or Cutting o f Benign Hyperkeratotic Lesion(s) (-57) More than 4 Lesions - The Benign hyperkeratotic lesions, as described in exam, were pared, and/or cut utilizing a sterile 15 blade, tissue nippers, and/or dremel - 78461 Progress Notes * Miriam NOGUEIRA JDOB: (74 yo F)Acc No.[id number]:10/09/2024 Progress Note Patient:?ROLANDOODILIA Tammie yonathan Ward Provider:?Benjamin Landeros DPM :1950???Age:74 Y???Sex:Female D ate:10/09/2024 Address:[facility] [address] Pcp:Buddy Morrow MD Subjective: * Chief Complaints: [...] ?Marital status: . 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 * Medications:?TakingPantopraz ole Sodium 40 MG Tablet [...] use of a nail nipper and/or dremel-type cutter grinder operator, to a more viable healthy nail plate or bed tissue 6-10. Silver nitrate used for any petechial bleeding as necessary. Definitive antifungal treatment options have been reviewed and discussed with the patient. The patient chooses, no pharmaceutical tx - 26206.?Keratoma Treatment:?Parring or Cutting of Benign Hyperkeratotic Lesion(s)?(-57) More than 4 Lesions - The Benign hyperkeratotic lesions, as described in exam, were pared, and/or cut utilizing a sterile 15 blade, tissue nippers, and/or dremel - 60574.? * Procedure Codes:?26281 DEBRI DE NAIL, 6 OR MORE, Modifiers: XS 70039 TRIM SKIN LESIONS, OVER 4, Modifiers: XS * Follow Up:?prn * Images: * Sign off status: Completed true * Provider:?Benjamin Landeros DPM Date:?2023 Generated for Stephanie smith/Jareth/Ania on:?12/05/2024 11:31 AM EST History and Physical Notes * [...]
--- OUTSIDE RECORDS SUMMARY | 2024-12-05 11:31 | XMS_ITS ---
Author Organization [facility] Address [address] [facility] [place] [address] Care Team Providers Care Donor Specialist Name Role Phone Buddy Morrow MD Primary Care Provider Benjamin Skelton Unavailable [phone] Allergies Allergen (clinical drug ingredient) Drug/Non Drug [...] Ordered Date Performed Result Body Sit e 39202-BBUVMVG NAIL, 6 OR MORE 03/27/2024 N/A 28240-LVLY SKIN LESIONS, OVER 4 03/27/2024 N/A Encounters Encounter Location Date Provider Diagnosis [facility] [address] [address] 03/27/2024 Benjamin Landeros Type 1 diabetes mellitus with diabetic polyneuropathy E10.42 and Tinea unguium B35.1 Assessments Encounter Date Diagnosis (ICD Code) Assessment Notes Treatment Notes Treatment Clinical Notes Section Notes 03/27/2024 Type 1 diabetes mellitus with diabetic polyneuropathy (ICD-10 - E10.42) 03/27/2024 Tinea unguium (ICD-10 - B35.1) Plan Of Treatment Pending Test Test Name Order Date 67889-VOTHJBV NAIL, 6 OR MORE 03/27/2024 52852-PFDY SKIN LESIONS, OVER 4 03/27/20 24 Next Appt Details Follow Up: prn, Reason: Provider Name:Benjamin Landeros , 01/15/2025 01:30:00 PM, [address] [place] [address], [address], Procedure Notes * Category Sub-Category Detail Notes [...] as necessary. Patient chooses, no pharmaceutical tx (69874) Keratoma Treatment Parring or Cutting o f Benign Hyperkeratotic Lesion(s) 94193 ( >4 Lesions) - The Benign hyperkeratotic lesions, as described above were pared, and/or cut utilizing a sterile #15 blade, tissue nippers, and/or dremel Progress Notes * Miriam NOGUEIRA JDOB: (73 yo F)Acc No.[id number]:03/27/2024 Progress Note Patient:Tammie Martinez Provider:?Benjamin Landeros DPM :1950???Age:73 Y???Sex:Female D ate:03/27/2024 Address:[facility] , [place], [place] Pcp:Buddy Morrow MD Subjective: * Chief Complaints: [...] ?Marital status: . 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 * Medications:?TakingPantopraz ole Sodium 40 MG Tablet [...] as necessary. Patient chooses, no pharmaceutical tx (02902).?Keratoma Treatment:?Parring or Cutting of Benign Hyperkeratotic Lesion(s)?05027 ( >4 Lesions) - The Benign hyperkeratotic lesions, as described above were pared, and/or cut utilizing a sterile #15 blade, tissue nippers, and/or dremel.? * Procedure Codes:?63247 DEBRI DE NAIL, 6 OR MORE, Modifiers: XS 25043 TRIM SKIN LESIONS, OVER 4, Modifiers: XS [...]
--- OUTSIDE RECORDS SUMMARY | 2024-12-05 11:31 | XMS_ITS ---
Author Organization [facility] Address [address] [facility] [place] [address] Care Team Providers Care Spring Former Name Role Phone Buddy Morrow MD Primary Care Provider Benjamin Skelton Unavailable [phone] Allergies Allergen (clinical drug ingredient) Drug/Non Drug [...] Ordered Date Performed Result Body Sit e 03813-FWNPSAX NAIL, 6 OR MORE 06/26/2024 N/A 18587-BKPR SKIN LESIONS, OVER 4 06/26/2024 N/A Encounters Encounter Location Date Provider Diagnosis [facility] [place] [address] [place] [address] 06/26/2024 Benjamin Landeros Type 1 diabetes mellitus [...] INSTRUCTIONS.pdf) Pending Test Test Name Order Date 07659-YJQDFWN NAIL, 6 OR MORE 06/26/2024 40642-IJBK SKIN LESIONS, OVER 4 06/26/20 24 Next Appt Details Follow Up: prn, Reason: Provider Name:Benjamin Landeros , 01/15/2025 01:30:00 PM, [address] [place] [address], [phone], Procedure Notes * Category Sub-Category Detail Notes [...] as necessary. Patient chooses, no pharmaceutical tx (47591) Keratoma Treatment Parring or Cutting o f Benign Hyperkeratotic Lesion(s) 13085 ( >4 Lesions) - The Benign hyperkeratotic lesions, as described above were pared, and/or cut utilizing a sterile #15 blade, tissue nippers, and/or dremel Progress Notes * Miriam NOGUEIRA JDOB: (73 yo F)Acc No.[id number]:06/26/2024 Progress Note Patient:?Tammie Nogueira Provider:?Benjamin Landeros DPM :1950???Age:73 Y???Sex:Female D ate:06/26/2024 Address:[address], [place] Pcp:Buddy Morrow MD Subjective: * Chief Complaints: [...] ?Marital status: . 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 * Medications:?TakingPantopraz ole Sodium 40 MG Tablet [...] 2.?Type 1 diabetes mellitus with diabetic polyneuropathy?Procedure: 10152-WSKZDLT NAIL, 6 OR MORE ?Procedure: 67384-MKTS SKIN LESIONS, OVER 4 * Procedures:?Debride Nail 6-10:?Nail debridement?Nail debridement performed extensively to reduce/remove overall nail length, girth, thickness, subungual debris, and necrotic tissue, by manual and electrical means through the use of a nail nipper and/or dremel, to more viable healthy nail plate or bed tissue 1-5. Silver nitrate used for any petechial bleeding as necessary. Patient chooses, no pharmaceutical tx (51426).?Keratoma Treatment:?Parring or Cutting of Benign Hyperkeratotic Lesion(s)?26810 ( >4 Lesions) - The Benign hyperkeratotic lesions, as described above were pared, and/or cut utilizing a sterile #15 blade, tissue nippers, and/or dremel.? * Procedure Codes:?74081 DEBRI DE NAIL, 6 OR MORE, Modifiers: XS 87474 TRIM SKIN LESIONS, OVER 4, Modifiers: XS [...]
--- OUTSIDE RECORDS SUMMARY | 2024-12-05 11:32 | XMS_ITS | Patient Health Record ---
[facility] Address [address] [facility] [place] [address] Care Team Providers Care Process Excellence Manager Name Role Phone Buddy Morrow MD Primary Care Provider Benjamin Skelton Unavailable [phone] Allergies Allergen (clinical drug ingredient) Drug/Non Drug [...] Vaccine Route Administration Date Status Comme nts Pneumococcal Unknown 10/13/2015 Administered Influenza Unknown 11/15/2017 Administered Influenza Unknown 11/03/2018 Administered Influenza Unknown 09/03/2022 Administered Influenza Unknown 09/20/2023 Administered COVID-19 Moderna Vaccine Unknown 09/03/2022 Administere d 1st 02/15/21,03/15/21 10/12/21 Social History Tobacco Use: Social History Observation [...] Problem Acquired hammer toe of right foot (0849850990086113 ) Other hammer toe(s) (acquired), right foot (M20.41) Active confirmed Response to treatment, Improvemen t Problem Acquired hammer toe of left foot (3904022760584495 ) Other hammer toe(s) (acquired), left foot (M20.42) Active confirmed Response to treatment, Improvemen t Problem Polyneuropathy due to diabetes mellitus type I (149018962) 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 confirmed Vital Signs Blood pressure diastolic 74 mm Hg 10/09/2024 Height 5ft4in in 10/09/2024 Blood pressure systolic 103 mm Hg 10/09/2024 Weight 181 lbs 10/09/2024 BMI 31.07 kg/m2 10/09/2024 Procedures Procedure Date Ordered Date Performed Result Body Sit e 03439-TLJDIDR NAIL, 6 OR MORE 12/27/2023 N/A 00231-LBIG SKIN LESIONS, OVER 4 12/27/2023 N/A 04132-ZEXZTMN NAIL, 6 OR MORE 03/27/2024 N/A 14580-MJMW SKIN LESIONS, OVER 4 03/27/2024 N/A 33671-YHTCNTH NAIL, 6 OR MORE 06/26/2024 N/A 88037-BVFS SKIN LESIONS, OVER 4 06/26/2024 N/A 42449-GNIRADZ NAIL, 6 OR MORE 10/09/2024 N/A 97700-RPMD SKIN LESIONS, OVER 4 10/09/2024 N/A Encounters Encounter Location Date Provider Diagnosis [address] [address] 12/27/2023 Benjaminabram CrandallLeti Type 1 diabetes mellitus with diabetic polyneuropathy E10.42 and Tinea unguium B35.[address] [address] 03/27/2024 Benjaminabram CrandallLeti Type 1 diabetes mellitus with diabetic polyneuropathy E10.42 and Tinea unguium B35.[address] [address] 06/26/2024 Benjamin Leti Type 1 diabetes mellitus with diabetic polyneuropathy E10.42 ; Tinea unguium B35.1 ; Other hammer toe(s) (acquired), right foot M20.41 and Other hammer toe(s) (acquired), left foot M20.[address] [address] 10/09/2024 Benjaminabram CrandallLeti Type 1 diabetes mellitus [...] Order Date Hemoglobin A1c 02/11/2015 Hemoglobin A1c 06/03/2017 Hemoglobin A1c 12/02/2015 18656-NJJYJEF NAIL, 6 OR MORE 03/02/2016 74508-SSWRJHT NAIL, 6 OR MORE 12/02/2015 61437-WRYENZF NAIL, 6 OR MORE 05/16/2015 86520-KHJWBMA NAIL, 6 OR MORE 08/13/2014 28482-CEHJOLG NAIL, 6 OR MORE 02/01/2014 32794-ZCRGSAK NAIL, 6 OR MORE 04/13/2013 86768-EJTJYVU NAIL, 6 OR MORE 07/28/2012 66433-IEDBFOW NAIL, 6 OR MORE 01/14/2012 42235-ETCQCTY NAIL, 6 OR MORE 10/09/2024 59872-HWNCIQU NAIL, 6 OR MORE 03/27/2024 35358-GPNLWPT NAIL, 6 OR MORE 06/26/2024 44734-YYTJXOE NAIL, 6 OR MORE 12/24/2022 81694-QCPQVVJ NAIL, 6 OR MORE 03/25/2023 80004-GNVISQC NAIL, 6 OR MORE 09/27/2023 78023-BDGGXOW NAIL, 6 OR MORE 12/27/2023 46377-BUUTLKR NAIL, 6 OR MORE 06/24/2023 28364-DDFMHPY NAIL, 6 OR MORE 09/25/2019 11428-DGWEOAT NAIL, 6 OR MORE 08/22/2015 30737-DRIOUGJ NAIL, 6 OR MORE 06/11/2016 15632-YHJALYE NAIL, 6 OR MORE 09/10/2016 56441-OOPIMVL NAIL, 6 OR MORE 12/10/2016 35025-FKESOCN NAIL, 6 OR MORE 03/04/2017 39785-NJOMQIJ NAIL, 6 OR MORE 06/07/2017 14699-ZMANAYX NAIL, 6 OR MORE 09/06/2017 96330-UOGXNXM NAIL, 6 OR MORE 12/09/2017 65889-RCUOUVD NAIL, 6 OR MORE 07/27/2011 05180-MNOHYAK NAIL, 6 OR MORE 10/15/2011 44676-CTQJKEU NAIL, 6 OR MORE 04/11/2012 11411-YEEJQYZ NAIL, 6 OR MORE 10/13/2012 46987-QSUENNN NAIL, 6 OR MORE 01/12/2013 43171-FWGMLTE NAIL, 6 OR MORE 08/03/2013 10935-YLEFSBX NAIL, 6 OR MORE 11/02/2013 56159-BVCKLYO NAIL, 6 OR MORE 05/10/2014 43053-FDPIHVD NAIL, 6 OR MORE 11/12/2014 23994-NSVRFFL NAIL, 6 OR MORE 02/11/2015 36190-PEBXYHJ NAIL, 6 OR MORE 03/10/2018 66770-JYIWDHQ NAIL, 6 OR MORE 06/13/2018 53592-XQLSPXU NAIL, 6 OR MORE 09/12/2018 73986-ZHOEGAT NAIL, 6 OR MORE 12/26/2018 15481-DIZWWAB NAIL, 6 OR MORE 03/27/2019 44158-NVARHOV NAIL, 6 OR MORE 06/26/2019 67553-XUOKJZW NAIL, 6 OR MORE 12/25/2019 68690-INBSLUT NAIL, 6 OR MORE 06/13/2020 68090-NHDREMJ NAIL, 6 OR MORE 09/12/2020 61506-NWOWQCQ NAIL, 6 OR MORE 12/12/2020 40036-ODFBVCA NAIL, 6 OR MORE 03/13/2021 32937-DYDEVGA NAIL, 6 OR MORE 06/12/2021 28337-OEOMZZE NAIL, 6 OR MORE 09/18/2021 32002-VHUEGZD NAIL, 6 OR MORE 12/18/2021 06320-QDXULDQ NAIL, 6 OR MORE 03/23/2022 66787-EKURRYA NAIL, 6 OR MORE 06/25/2022 77718-USVYMSD NAIL, 6 OR MORE 09/24/2022 97020- Debride <25 sq cm 08/03/2013 13066-DYHP SKIN LESIONS, OVER 4 11/02/20 13 53740-AAJW SKIN LESIONS, OVER 4 05/10/20 14 95349-MUYX SKIN LESIONS, OVER 4 02/12/20 15 27795-NQGK SKIN LESIONS, OVER 4 11/12/20 14 69136-BHVH SKIN LESIONS, OVER 4 03/10/20 18 81207-OXRU SKIN LESIONS, OVER 4 12/09/19 18 92247-QJPT SKIN LESIONS, OVER 4 09/06/20 17 59352-GKWB SKIN LESIONS, OVER 4 03/04/20 17 01419-ROOP SKIN LESIONS, OVER 4 06/07/20 17 45042-KSCC SKIN LESIONS, OVER 4 12/10/19 17 20267-RGQY SKIN LESIONS, OVER 4 09/10/20 16 53006-UAVQ SKIN LESIONS, OVER 4 06/11/20 16 98626-HFTQ SKIN LESIONS, OVER 4 08/22/20 15 75020-BSHM SKIN LESIONS, OVER 4 09/24/20 35878-BRAG SKIN LESIONS, OVER 4 06/25/20 05371-IUOO SKIN LESIONS, OVER 4 03/23/20 68089-TSXI SKIN LESIONS, OVER 4 12/18/19 38960-LJOE SKIN LESIONS, OVER 4 09/18/20 86463-YYSV SKIN LESIONS, OVER 4 06/12/20 78152-BFGY SKIN LESIONS, OVER 4 03/13/20 50396-OVXA SKIN LESIONS, OVER 4 12/12/19 44297-WZIB SKIN LESIONS, OVER 4 09/12/20 37864-GQPY SKIN LESIONS, OVER 4 06/13/20 20 70746-NVAT SKIN LESIONS, OVER 4 12/25/19 20 81646-DKXY SKIN LESIONS, OVER 4 06/26/20 19 63603-UPSF SKIN LESIONS, OVER 4 03/27/20 19 13468-NMDJ SKIN LESIONS, OVER 4 12/26/19 19 32863-KNXG SKIN LESIONS, OVER 4 09/12/20 18 56732-EREW SKIN LESIONS, OVER 4 06/13/20 18 26412-PEOB SKIN LESIONS, OVER 4 09/25/20 88551-RQRU SKIN LESIONS, OVER 4 06/24/20 23 77034-AAZS SKIN LESIONS, OVER 4 12/27/19 24 69716-OCJM SKIN LESIONS, OVER 4 09/27/20 27976-EWVM SKIN LESIONS, OVER 4 03/25/20 53894-RDGB SKIN LESIONS, OVER 4 01/27/20 23 02855-WVCC SKIN LESIONS, OVER 4 06/26/20 24 81618-QCBM SKIN LESIONS, OVER 4 03/27/20 24 91869-VJKM SKIN LESIONS, OVER 4 10/09/20 24 70284-VCPU SKIN LESIONS, OVER 4 02/02/20 14 44041-MLBE SKIN LESIONS, OVER 4 08/13/20 14 00662-ODYC SKIN LESIONS, OVER 4 05/16/20 15 08124-URKC SKIN LESIONS, OVER 4 03/02/20 16 06133-IPSP SKIN LESIONS, OVER 4 12/02/19 16 07453-AEKO SKIN LESIONS, 2 TO 4 04/13/20 13 91953-EULG SKIN LESIONS, 2 TO 4 01/14/20 12 28023-JSRT SKIN LESIONS, 2 TO 4 07/28/20 12 79784-RZZE SKIN LESIONS, 2 TO 4 07/27/20 11 11973-LXUG SKIN LESIONS, 2 TO 4 01/12/20 13 28455-VGJY SKIN LESIONS, 2 TO 4 10/13/20 12 46255-ZFOR SKIN LESIONS, 2 TO 4 04/11/20 12 92984-SBMP SKIN LESIONS, 2 TO 4 10/15/20 11 HEMOGLOBIN A1C (GLYCOHEMOGLOBIN) 020 Next Appt Details Provider Name:Benjamin Landeros , 01/15/2025 01:30:00 PM, [address] [facility], [place], [address], Insurance Providers Payer Name Payer Address Payer Phone Subscriber Number Group Number Insured Name Patient Relationship to Insured Coverage Start Date Coverage End Date [employer] Medicare Adv-[id number] [address] [address] [place] [address] [id number] Miriam Henry Self - patient is the insured [facility] Claims [facility] Office of Community Care [address] [address] [place] [address] [id number] Miriam Henry Self - patient is the [...] Hospitalization History Reason Date(Month/Year) [facility] virus 11/21/2017 [facility]- hiatal hernia surgery, esophagus surgery 05[place]17/[place] [facility] [place] 02/27/2021 [facility] [place] flare up 05/21/19
[2024-12-05 11:54] LABS: Appearance Urine Clear; Color Urine Yellow; Glucose Urine UA Negative (Negative); Leukocyte Esterase Urine Trace (Negative); Nitrite Urine Negative (Negative); PH 5.5 (5.0-9.0); Specific Gravity - Urine 1.025 (1.005-1.025); UMIC TRIGGER UA YES; Urine Blood Negative (Negative); Urine Ketones Negative (Negative); Urine Protein Negative (Neg-Trace)
[2024-12-05 12:04] LABS: Anion Gap 13 (12-20); Blood Urea Nitrogen 11 mg/dL (9-16); Calcium 9.3 mg/dL (8.4-10.2); Carbon Dioxide 25 mmol/L (22-29); Chloride 106 mmol/L (96-108); Estimated Glomerular Filt Rate 58; Glucose Random 184 mg/dL (60-115); Potassium 3.9 mmol/L (3.3-5.1); Sodium 140 mmol/L (135-145)
[2024-12-05 12:05] LABS: Bacteria Urine None Seen (None Seen); Hyaline Casts Urine 0-2 /LPF (0-2); RBC Urine 0-2 /HPF (0-2); Squamous Epithelial Cell Urine 0-2 /HPF (0-2); WBC Urine 0-5 /HPF (0-5)
== END 2024-12-05 11:09 | disposition home or self-care (01) ==
LOC: HO.LAB 11:08
PROVIDERS: Internal Medicine; PCP Internal Medicine; Visit Provider Urology
DX: I10 Essential (primary) hypertension (principal); N39.0 Urinary tract infection, site not specified
CPT/HCPCS: 36415; 80048; 81001

== ENCOUNTER 2024-12-18 13:38 | Outpatient (AMB) | payer MEDICARE, OTHER, SELFPAY ==
--- NOTE | 2024-12-18 13:51 | MHC.PC.OV ---
Vital Signs 12/18/24 13:53 Height 5 ft 4 in Weight 199 lb 4 oz BMI 34.2 BP 114/72 Blood Pressure Location Lt brachial Position Sitting Pulse 67 Pulse Source Pulse Oximeter Temp 96.9 F Temp Source Skin Pulse Oximetry (%) 98 Oxygen Delivery Method Room Air Intake Visit Reasons: 4mth f/u Intake Note: Patient is here to follow up on DM, HTN. 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 per policy Accompanied by: Self / Same As Patient Allergies hydrocodone [From VICODIN] Allergy (Unknown, Verified 12/18/24 13:53) HEADACHE oxycodone [OXYCODONE] Allergy (Unknown, Verified 12/18/24 13:53) HIVES procaine [From NOVOCAIN] Allergy (Unknown, Verified 12/18/24 13:53) FAINTED Tobacco use date assessed: 12/18/24 Fall risk assessment: No Falls in past year Last assessed Fall Risk: 12/18/24 Dental Screening Dental Screen Date: 12/18/24 Did you have a dental visit in the last 12 months?: No Did you have a dental problem in the last 6 months where you did not have access to dental care?: No Was dental information given to patient?: No HPI 4mth f/u HPI Details DM in good control PFSH Medical History Incontinence Hx of esophageal ulcer (~04/2024) Hiatal hernia (~04/2024) Dysphagia Hypoglycemia unawareness associated with type 2 diabetes mellitus Hyperlipidemia associated with type 2 diabetes mellitus Obesity Post-menopausal Screening for breast cancer Dizziness Pre-op exam IDDM (insulin dependent diabetes mellitus) Pre-op exam Diabetic polyneuropathy associated with type 2 diabetes mellitus Obesity (BMI 30-39.9) Hypertension Hypothyroidism 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 Diabetes type 2, uncontrolled Surgical History History of colonoscopy History of repair of hiatal hernia History of cardiac catheterization Hx of hammer toe correction Hx of shoulder surgery Hx of tonsillectomy Hx laparoscopic cholecystectomy Hx of appendectomy Family History Brother Diabetes Father Lung cancer Mother HTN (hypertension) Social History Household Members: Family Housing: House Do you presently have visiting nurse or other home services: No Alcohol intake: current Alcohol intake frequency: does not drink Patient Tobacco Use Status: Former Tobacco user Tobacco use type: Cigarette Years Smoked: 20 e-Cigarette/Vaping Use: Never Used Second Hand Smoke Exposure: Yes service: No Current occupational status: retired Cognitive needs: No Hearing needs: No Vision needs: Yes (Glasses) Questionnaire PHQ-9 Over the last 2 weeks, how often have you been bothered by any of the following problems? 1. Little interest or pleasure in doing things: not at all 2. Feeling down, depressed, or hopeless: not at all 3. Trouble falling or staying asleep, or sleeping too much: not at all 4. Feeling tired or having little energy: not at all 5. Poor appetite or overeating: not at all 6. Feeling bad about yourself - or that you are a failure or have let yourself or your family down: not at all 7. Trouble concentrating on things, such as reading the newspaper or watching television: not at all 8. Moving or speaking so slowly that other people could have noticed. Or the opposite - being so fidgety or restless that you have been moving around a lot more than usual: not at all 9. Thoughts that you would be better off or of hurting yourself in some way: not at all Total score: 0 Depression Screening Interpretation: Negative Depression Screening Done: Yes Source: Developed by Drs. Hugh Sanon, Kajal Fuentes, Sam Padgett and colleagues, with an educational melissa from [employer]. Thrive Questionnaire Date Thrive assessed: 12/18/24 I am a: Patient What is your living situation today?: I have a steady place to live Within the past 12 months, did the food you bought not last and you didn't have the money to get more?: Never true Within the past 12 months, did you worry whether your food would run out before you got money to buy more?: Never true Do you have trouble paying for medicines?: No Do you have trouble getting transportation to medical appointments?: No Do you have trouble paying your heating and electricity bill?: No Do you have trouble taking care of your child, family member or friend?: No Do you have trouble with day-to-day activities such as bathing, preparing meals, shopping, managing finances, etc.?: No Are you currently unemployed and looking for a job?: No Are you interested in more education?: No Please select the resources that you would like help with: None Currently or been in a relationship where the following occur: No concerns reported THRIVE Score: 0 AUDIT C Alcohol Use Questionnaire (AUDIT-C) 1. How often do you have a drink containing alcohol?: Monthly or less 2. How many drinks containing alcohol do you have on a typical day when you are drinking?: 1 or 2 Total Score: 1 GHAZAL-7 AMB Questionnaire GHAZAL-7 Date GHAZAL - 7 assessed: 12/18/24 Feeling nervous, anxious, or on edge: 0 = Not at all Not being able to stop or control worryin = Not at all Worrying too much about different things: 0 = Not at all Trouble relaxin = Not at all Being so restless that it is hard to sit still: 0 = Not at all Becoming easily annoyed or irritable: 0 = Not at all Feeling afraid as if something awful might happen: 0 = Not at all Total GHAZAL-7 score (0-4 normal; 5-9 mild; 10-14 moderate; 15-21 severe): 0 Source: Developed by Drs. Hugh Sanon, Kajal Fuentes, Sam Padgett and colleagues, with an educational melissa from [employer]. Review of Systems Const Denies chills, Denies headache(s) and Denies weight loss ENT Denies headache(s) Card Denies chest pain, Denies syncope, Denies irregular heart rhythm and Denies dyspnea Resp Denies chest congestion, Denies cough and Denies dyspnea GI Denies abdominal pain, Denies change in stool character, Denies nausea and Denies vomiting Musc Denies deformity and Denies joint swelling Neuro Denies syncope and Denies headache(s) Physical exam (Primary Care) Vital Signs: Last Vital Signs Temp 96.9 F 12/18/24 13:53 Pulse 67 12/18/24 13:53 BP 114/72 12/18/24 13:53 Pulse Ox 98 12/18/24 13:53 Oxygen Delivery Method Room Air 12/18/24 13:53 BMI result Body Mass Index 34.2 Tobacco/Smoking Status: Tobacco use Status Tobacco use date assessed 12/18/24 12/18/24 13:54 Patient Tobacco Use Status Former Tobacco user 12/18/24 13:52 Tobacco use type Cigarette 12/18/24 13:52 e-Cigarette/Vaping Use Never Used 12/18/24 13:52 PHQ-9: PHQ-9 Score PHQ-9: Total score 0 12/18/24 14:29 Depression Screening Interpretation: Negative Thrive Assessment: Date of Thrive Assessment Date Thrive assessed 12/18/24 12/18/24 13:54 Currently or been in a relationship where the following occur: No concerns reported Const General: cooperative, comfortable, no acute distress and alert Neck Neck: Yes no lymphadenopathy Thyroid: Thyroid normal Resp Effort & Inspection: normal respiratory effort Auscultation: clear to auscultation bilaterally Percussion: percussion normal Cardio Jugular venous distension: no JVD Palpation: normal PMI Rate: regular rate Rhythm: regular rhythm Heart sounds: S1 normal heart sound present and S2 normal heart sound present GI Inspection: Yes normal to inspection Palpation (GI): No hepatosplenomegaly present Skin General skin exam: no rashes or lesions noted Extrem General: Yes no clubbing, cyanosis or edema Office Procedures Flu Questionnaire Does the patient have a severe egg allergy?: No Does the patient have severe life threatening allergies?: No Does the patient have a fever or illness today?: No Has the patient ever had Guillain-Fenwick Syndrome?: No Has the patient ever had any past reaction to a flu shot?: No Results AMB Hemoglobin A1c AMB Hemoglobin A1c 7.9 % Last Edit by CHULA Fonseca on 12/18/24 14:06 Immunizations Fluarix Triv 1169-0277 (PF) 45 mcg (15 mcg x 3)/0.5 mL IM syringe Performing Provider: Buddy Morrow MD [place] Administered by: Nena Bowman LPN on 12/18/24 14:28 Dose Route Admin Location Dispensed Lot Number Expiration Date [facility] 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 0.5 mL IM Left Deltoid 0.5 mL [id number] 05/27/25 [id number] [employer] VIS Given Date VIS Provided VIS Publication Date 12/18/24 Single Vaccine 21 Eligibility Eligibility Date Funding Source Not VF Eligible 12/18/24 Private Results Reviewed Results Reviewed: Laboratory Last Values Hgb A1c (Clinic) 7.9 % (4.0-6.0) H 12/18/24 13:54 Coding Level of Care Code Est Pt Level 3 (90478) Diagnoses Diabetes mellitus with coincident hypertension E11.9; I10 Assessment & Plan Assessment & Plan (1) Diabetes mellitus with coincident hypertension: Code(s): E11.9 - Type 2 diabetes mellitus without complications; I10 - Essential (primary) hypertension Category: Medical Plan: stable; same rx Orders: Orders Thyroid Stimulating Hormone 12/18/24 Z13.29 - Encounter for screening for other suspected endocrine disorder AMB Hemoglobin A1c 12/18/24 E11.8 - Type 2 diabetes mellitus with unspecified complications Influenza 0670-8105 Immunization 12/18/24 Z23 - Encounter for immunization Referrals [facility]ERIFFS DETECTIVE Referral N93.9 - Abnormal uterine and vaginal bleeding, unspecified
[2024-12-18 13:53] VITALS: BP 114/72; PULSE 67; TEMP 36.1; O2SAT 98; BMI 34.2
== END 2024-12-18 14:32 | disposition home or self-care (01) ==
PROVIDERS: PCP Internal Medicine; Visit Provider Internal Medicine
DX: Z23 Encounter for immunization (principal); E11.8 Type 2 diabetes mellitus with unspecified complications

== ENCOUNTER → 2024-12-18 13:38 | Outpatient (BNVA) | payer MEDICARE, OTHER, SELFPAY | PROVIDERS: PCP Internal Medicine; Visit Provider Internal Medicine | DX: Z23 Encounter for immunization (principal); E11.9 Type 2 diabetes mellitus without complications; I10 Essential (primary) hypertension | CPT/HCPCS: 83036; 90471; 90656; 99212 ==

== ENCOUNTER 2024-12-24 13:42 | Outpatient (REF) | payer MEDICARE, OTHER, SELFPAY ==
--- OUTSIDE RECORDS SUMMARY | 2024-12-24 18:25 | XMS_ITS | Patient Health Record ---
Author Organization [facility] Address [address] [facility] [place] [address] Care Team Providers Care Curing Supervisor Name Role Phone Buddy Morrow MD Primary Care Provider Benjamin Skelton Unavailable [phone] Allergies Allergen (clinical drug ingredient) Drug/Non Drug [...] Problem Acquired hammer toe of right foot ([id number] ) Other hammer toe(s) (acquired), right foot (M20.41) Active confirmed Response to treatment, Improvemen t Problem Acquired hammer toe of left foot ([id number] ) Other hammer toe(s) (acquired), left foot (M20.42) Active confirmed Response to treatment, Improvemen t Problem Polyneuropathy due to diabetes mellitus type I ([id number]) 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 confirmed Vital Signs Blood pressure diastolic 74 mm Hg 10/09/2024 Height 5ft4in in 10/09/2024 Blood pressure systolic 103 mm Hg 10/09/2024 Weight 181 lbs 10/09/2024 BMI 31.07 kg/m2 10/09/2024 Procedures Procedure Date Ordered Date Performed Result Body Sit e 55035-PWDRQSY NAIL, 6 OR MORE 12/27/2023 N/A 71785-TGIQ SKIN LESIONS, OVER 4 12/27/2023 N/A 83408-KFDCYPD NAIL, 6 OR MORE 03/27/2024 N/A 13507-DZUF SKIN LESIONS, OVER 4 03/27/2024 N/A 29969-BQDZQZB NAIL, 6 OR MORE 06/26/2024 N/A 25324-GOWT SKIN LESIONS, OVER 4 06/26/2024 N/A 30181-DCVDEXU NAIL, 6 OR MORE 10/09/2024 N/A 22405-MBLA SKIN LESIONS, OVER 4 10/09/2024 N/A Encounters Encounter Location Date Provider Diagnosis [address] [address] 12/27/2023 Benjaminabram CrandallLeti Type 1 diabetes mellitus with diabetic polyneuropathy E10.42 and Tinea unguium B35.[address] [address] 03/27/2024 Benjaminabram CrandallLeti Type 1 diabetes mellitus with diabetic polyneuropathy E10.42 and Tinea unguium B35.[address] [address] 06/26/2024 Benjamin Leti Type 1 diabetes mellitus with diabetic polyneuropathy E10.42 ; Tinea unguium B35.1 ; Other hammer toe(s) (acquired), right foot M20.41 and Other hammer toe(s) (acquired), left foot M20.[address] [address] 10/09/2024 Benjaminabram CrandallLeti Type 1 diabetes mellitus [...] 02/11/2015 Hemoglobin A1c 12/02/2015 Hemoglobin A1c 06/03/2017 65489-PJLXVGI NAIL, 6 OR MORE 10/09/2024 43473-WLJGXCK NAIL, 6 OR MORE 09/12/2020 47940-KTLQXOU NAIL, 6 OR MORE 12/12/2020 24616-ARLDPWZ NAIL, 6 OR MORE 03/13/2021 90705-PEEAGBE NAIL, 6 OR MORE 06/12/2021 99463-HHMNZDN NAIL, 6 OR MORE 09/18/2021 51743-BVRTJWX NAIL, 6 OR MORE 12/18/2021 79161-BBCDAGU NAIL, 6 OR MORE 03/23/2022 47731-NGFCSTH NAIL, 6 OR MORE 06/25/2022 83562-BGUVSFJ NAIL, 6 OR MORE 09/24/2022 31663-WHMTUZE NAIL, 6 OR MORE 12/24/2022 21049-JPHEMOM NAIL, 6 OR MORE 03/25/2023 10910-KFKKSTF NAIL, 6 OR MORE 06/24/2023 72063-TLFJOLN NAIL, 6 OR MORE 09/27/2023 70001-ZJXSBAH NAIL, 6 OR MORE 12/27/2023 50237-YPUHHYR NAIL, 6 OR MORE 03/27/2024 35390-YTWFPEN NAIL, 6 OR MORE 06/26/2024 15580-ZQUHLAQ NAIL, 6 OR MORE 08/22/2015 69121-QPCYIKX NAIL, 6 OR MORE 05/16/2015 16785-GNOURCU NAIL, 6 OR MORE 02/11/2015 57897-NJAWCJP NAIL, 6 OR MORE 11/02/2013 40946-LROEHFI NAIL, 6 OR MORE 02/01/2014 07355-PQPZPNG NAIL, 6 OR MORE 05/10/2014 30199-IUUYKZE NAIL, 6 OR MORE 08/13/2014 14309-YEKVICN NAIL, 6 OR MORE 11/12/2014 76093-HNWQCIF NAIL, 6 OR MORE 07/27/2011 97817-PEELSPQ NAIL, 6 OR MORE 10/15/2011 23289-AOBTTAV NAIL, 6 OR MORE 01/14/2012 87115-HBFCITP NAIL, 6 OR MORE 04/11/2012 74396-MVQTGRG NAIL, 6 OR MORE 07/28/2012 30003-YLGEDWR NAIL, 6 OR MORE 10/13/2012 49802-PANWUHM NAIL, 6 OR MORE 01/12/2013 45213-EPMLDYJ NAIL, 6 OR MORE 04/13/2013 60604-LSMWWTL NAIL, 6 OR MORE 08/03/2013 59729-BRTEBTO NAIL, 6 OR MORE 12/02/2015 92966-VKGIRTP NAIL, 6 OR MORE 03/02/2016 45501-QRCKXEP NAIL, 6 OR MORE 06/11/2016 38314-YNMPBBP NAIL, 6 OR MORE 09/10/2016 09974-WCHKZMQ NAIL, 6 OR MORE 12/10/2016 76239-SMRINCI NAIL, 6 OR MORE 03/04/2017 01615-PTPIBRP NAIL, 6 OR MORE 06/07/2017 89417-HAMIEVT NAIL, 6 OR MORE 09/06/2017 61010-YIBBJYN NAIL, 6 OR MORE 12/09/2017 73922-WNJNCMZ NAIL, 6 OR MORE 03/10/2018 05619-HUYTJJX NAIL, 6 OR MORE 06/13/2018 03729-MRFHWEE NAIL, 6 OR MORE 09/12/2018 12840-IXWVUTV NAIL, 6 OR MORE 12/26/2018 84125-TSBBYQY NAIL, 6 OR MORE 03/27/2019 16752-WJVPNRF NAIL, 6 OR MORE 06/26/2019 14719-QQGKJOF NAIL, 6 OR MORE 09/25/2019 25866-QTMLAAR NAIL, 6 OR MORE 12/25/2019 67139-HHMXSOI NAIL, 6 OR MORE 06/13/2020 28813- Debride <25 sq cm 08/03/2013 43771-NXMS SKIN LESIONS, OVER 4 11/02/20 13 35384-DMNI SKIN LESIONS, OVER 4 11/12/20 14 64226-EUMD SKIN LESIONS, OVER 4 08/13/20 14 78914-JSOW SKIN LESIONS, OVER 4 05/10/20 14 62677-BEBX SKIN LESIONS, OVER 4 02/02/20 14 61424-PYOH SKIN LESIONS, OVER 4 02/12/20 15 75163-RXDF SKIN LESIONS, OVER 4 05/16/20 15 22640-QSCL SKIN LESIONS, OVER 4 08/22/20 15 58099-QQOT SKIN LESIONS, OVER 4 12/02/19 16 65550-PEJL SKIN LESIONS, OVER 4 06/13/20 20 10326-MVIF SKIN LESIONS, OVER 4 12/25/19 20 58212-NBRM SKIN LESIONS, OVER 4 09/25/20 19 48920-ZDPW SKIN LESIONS, OVER 4 06/26/20 19 68065-GDZQ SKIN LESIONS, OVER 4 03/27/20 19 57375-PNGB SKIN LESIONS, OVER 4 12/26/19 19 64242-BWYP SKIN LESIONS, OVER 4 09/12/20 18 46208-OSGC SKIN LESIONS, OVER 4 06/13/20 18 00105-NDSY SKIN LESIONS, OVER 4 03/10/20 18 43200-CAYK SKIN LESIONS, OVER 4 12/09/19 18 87682-CMKN SKIN LESIONS, OVER 4 09/06/20 17 68401-AFBB SKIN LESIONS, OVER 4 03/04/20 17 91603-JQTG SKIN LESIONS, OVER 4 06/07/20 17 65065-IHZF SKIN LESIONS, OVER 4 12/10/19 17 88931-CEJY SKIN LESIONS, OVER 4 09/10/20 16 07145-TAYD SKIN LESIONS, OVER 4 06/11/20 16 81596-HVIE SKIN LESIONS, OVER 4 03/02/20 16 43042-LJBW SKIN LESIONS, OVER 4 06/26/20 24 27307-MPKN SKIN LESIONS, OVER 4 03/27/20 24 76328-RPHZ SKIN LESIONS, OVER 4 12/27/19 24 02075-KHGH SKIN LESIONS, OVER 4 09/27/20 12284-WACE SKIN LESIONS, OVER 4 06/24/20 23 80444-TTNK SKIN LESIONS, OVER 4 03/25/20 23 36968-NEKT SKIN LESIONS, OVER 4 12/24/19 23 13165-YRXO SKIN LESIONS, OVER 4 09/24/20 73886-SOCD SKIN LESIONS, OVER 4 07/29/20 22 15384-NCDN SKIN LESIONS, OVER 4 03/23/20 22 95841-OWJM SKIN LESIONS, OVER 4 12/18/19 22 23272-RRIJ SKIN LESIONS, OVER 4 09/18/20 75197-YEVS SKIN LESIONS, OVER 4 06/12/20 21 20841-CBJB SKIN LESIONS, OVER 4 03/13/20 27518-AQOO SKIN LESIONS, OVER 4 12/12/19 21 94429-AENU SKIN LESIONS, OVER 4 09/12/20 69251-SKJE SKIN LESIONS, OVER 4 10/09/20 24 35334-KEYY SKIN LESIONS, 2 TO 4 07/27/20 11 81753-EYUZ SKIN LESIONS, 2 TO 4 04/13/20 13 92105-QSUS SKIN LESIONS, 2 TO 4 01/12/20 13 40616-XGUR SKIN LESIONS, 2 TO 4 10/13/20 12 64186-LZTZ SKIN LESIONS, 2 TO 4 07/28/20 12 64548-FTUE SKIN LESIONS, 2 TO 4 04/11/20 12 72136-EATG SKIN LESIONS, 2 TO 4 01/14/20 12 27754-FJFC SKIN LESIONS, 2 TO 4 10/15/20 11 HEMOGLOBIN A1C (GLYCOHEMOGLOBIN) 020 Next Appt Details Provider Name:Benjamin Landeros , 01/15/2025 01:30:00 PM, [address] [facility], [place], [address], Insurance Providers Payer Name Payer Address Payer Phone Subscriber Number Group Number Insured Name Patient Relationship to Insured Coverage Start Date Coverage End Date [employer] Medicare Adv-[id number] [address] [address] [place] [address] [id number] Miriam Henry Self - patient is the insured [facility] Office of Community Care [address] [address] [place] [address] [id number] Miriam Henry Self - patient is the [...] Hospitalization History Reason Date(Month/Year) [facility] virus 11/21/2017 [facility] surgery, esophagus [place]17[place] [facility] [place] [facility] [place]19
--- OUTSIDE RECORDS SUMMARY | 2024-12-24 18:25 | XMS_ITS ---
Author Organization [facility] Address [address] [facility] [place] [address] Care Team Providers Care Cullet Crusher And Washer Name Role Phone Buddy Morrow MD Primary Care Provider Benjamin Skelton Unavailable [phone] Allergies Allergen (clinical drug ingredient) Drug/Non Drug [...] an other tobacco user? No Vital Signs Blood pressure systolic 134 mm Hg 06/26/20 24 Blood pressure diastolic 79 mm Hg 024 Height 5ft4in in 06/26/2024 Weight 181 lbs 06/26/2024 BMI 31.07 kg/m2 06/26/2024 Procedures Procedure Date Ordered Date Performed Result Body Sit e 01078-LZEGLAW NAIL, 6 OR MORE 06/26/2024 N/A 31733-HCVD SKIN LESIONS, OVER 4 06/26/2024 N/A Encounters Encounter Location Date Provider Diagnosis [facility] [address] [place] [address] 06/26/2024 Benjamin Landeros Type 1 diabetes mellitus [...] INSTRUCTIONS.pdf) Pending Test Test Name Order Date 32500-QJVEPOC NAIL, 6 OR MORE 06/26/2024 19809-MZPV SKIN LESIONS, OVER 4 06/26/20 24 Next Appt Details Follow Up: prn, Reason: Provider Name:Benjamin Landeros , 01/15/2025 01:30:00 PM, [address] [place] [address], [phone], Procedure Notes * Category Sub-Category Detail Notes [...] as necessary. Patient chooses, no pharmaceutical tx (00490) Keratoma Treatment Parring or Cutting o f Benign Hyperkeratotic Lesion(s) 01991 ( >4 Lesions) - The Benign hyperkeratotic lesions, as described above were pared, and/or cut utilizing a sterile #15 blade, tissue nippers, and/or dremel Progress Notes * Miriam NOGUEIRA JDOB: (73 yo F)Acc No.[id number]:06/26/2024 Progress Note Patient:?Tammie Nogueira Provider:?Benjamin Landeros DPM :1950???Age:73 Y???Sex:Female D ate:06/26/2024 Address:[address], [place] Pcp:Buddy Morrow MD Subjective: * Chief Complaints: [...] ?Marital status: . 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 * Medications:?TakingPantopraz ole Sodium 40 MG Tablet [...] 2.?Type 1 diabetes mellitus with diabetic polyneuropathy?Procedure: 28666-UMJFKDQ NAIL, 6 OR MORE ?Procedure: 11333-HIGD SKIN LESIONS, OVER 4 * Procedures:?Debride Nail 6-10:?Nail debridement?Nail debridement performed extensively to reduce/remove overall nail length, girth, thickness, subungual debris, and necrotic tissue, by manual and electrical means through the use of a nail nipper and/or dremel, to more viable healthy nail plate or bed tissue 1-5. Silver nitrate used for any petechial bleeding as necessary. Patient chooses, no pharmaceutical tx (56921).?Keratoma Treatment:?Parring or Cutting of Benign Hyperkeratotic Lesion(s)?61628 ( >4 Lesions) - The Benign hyperkeratotic lesions, as described above were pared, and/or cut utilizing a sterile #15 blade, tissue nippers, and/or dremel.? * Procedure Codes:?44081 DEBRI DE NAIL, 6 OR MORE, Modifiers: XS 40612 TRIM SKIN LESIONS, OVER 4, Modifiers: XS [...] Landeros DPM Date:?2023 Generated for Stephanie smith/Jareth/Ania on:?12/24/2024 06:25 PM EST History and Physical Notes * HPI [...]
--- OUTSIDE RECORDS SUMMARY | 2024-12-24 18:25 | XMS_ITS | Clinical Summary ---
Author Organization [facility] [place] [facility] Address [address] [place] [address] Care Team Providers Care Electric Power Machine Operator Name Role Phone Buddy Morrow MD Primary Care Provider [phone] Surgical History Surgery Date Site/Laterality Comments CHOLECYSTECTOMY 1970 PROCEDURE: HISTORICAL CHOLECYSTECTOMY APPENDECTOMY 1973 PROCEDURE: HISTORICAL APPENDECTOMY TONSILLECTOMY PROCEDURE: HISTORICAL TONSILLECTOMY OTHER SURGICAL HISTORY 05/17/2024 N/A PROCEDURE: AK LAPS RPR PARAESPHGL HRNA INCL FUNDPLSTY W/MESH Medical History Medical History Date Comments Coronary atherosclerosis of unspecified type of vessel, [place] or graft 07/25/2012 DX:Coronary atherosclerosis of unspecified type of vessel, [place] or graft HTN (hypertension) 07/25/2012 DX:HTN (hyper tension) Historical Medical DX 07/25/2012 DX:Hyperli pidemia LDL goal < 70 DM2 (diabetes mellitus, type 2) ([facility]) 07/25/2012 DX:DM2 (diabetes mellitus, t ype 2) ([facility]) Hypothyroid 07/25/2012 DX:Hypothyroid Social History Tobacco Use Types Packs/Day Years Used Date Smoking Tobacco: Former Alcohol Use Standard Drinks/Week Comments Not Asked 0 (1 standard drink = 0.6 oz pur e alcohol) Sex and Gender Information Value Date Recorded Sex Assigned at Not on file Gender Identity Not on file Sexual Orientation Not on file Obstetrics History Last Filed Vital Signs Vital Sign Reading Time Taken Comments Blood Pressure 155/82 06/13/2024 10:19 AM EDT Si tting L Arm Pulse 91 06/13/2024 10:19 AM EDT Temperature - - Respiratory Rate - - Oxygen Saturation - - Inhaled Oxygen Concentration - - Weight 80.3 kg (177 lb) 06/13/2024 10:19 AM EDT Height 162.6 cm (5' 4 ) 06/13/2024 10:19 AM EDT Body Mass Index 30.38 06/13/2024 10:19 AM EDT Plan of Treatment Health Maintenance Due Date Last Done Comments Diabetes: Annual GFR (Glomer ular Filtration Rate) 1948 Diabetes: Annual Foot Exam 1958 Diabetes: Annual Retina Eye Exam 1958 DTaP,Tdap,and Td Vaccines (1 - Tdap) 1967 Zoster Vaccines (1 of 2) 1998 Pneumococcal Vaccine: 65+ Ye ars (1 of 1 - PCV) 2013 RSV Immunization Patients 60 + Years Old (1 - 1-dose 75+ series) 2023 Cholesterol Screening (Lipid Panel) 06/26/2024 Depression Screening 06/26/2024 Diabetes: Annual Urine Albumin-Creatinine Ratio (uACR) 06/26/2024 Diabetes: Blood Sugar Contro l Test (HGBA1C) 06/26/2024 Falls Risk Assessment 06/26/2024 Hepatitis C Screening 06/26/2024 Hypertension/CHF/CAD Annual BMP Blood Test 06/26/2024 Osteoporosis Screening (Bone Density Screening) 06/26/2024 Social Influencers of Health Screening 06/26/2024 COVID-19 Vaccine ( - 2023-2 5 season) 2024 Influenza Vaccine (#1) 2024 HIB Vaccines Aged Out No longer eligi ble based on patient's age to complete this topic HPV Vaccines Aged Out No longer eligi ble based on patient's age to complete this topic Hepatitis A Vaccines Aged Out No long er eligible based on patient's age to complete this topic Hepatitis B Vaccines Aged Out No long er eligible based on patient's age to complete this topic IPV Vaccines Aged Out No longer eligi ble based on patient's age to complete this topic MMR Vaccines Aged Out No longer eligi ble based on patient's age to complete this topic Meningococcal ACWY Vaccine Aged Out N o longer eligible based on patient's age to complete this topic RSV Immunization Patients Un huma 20 months Aged Out No longer eligible b ased on patient's age to complete this topic Varicella Vaccines Aged Out No longer eligible based on patient's age to complete this topic Care Teams Electric Power Machine Operator Relationship Specialty Start Date End Date Buddy Morrow MD [address] [place] [address] PCP - General Internal Medicine 07/25/12
--- OUTSIDE RECORDS SUMMARY | 2024-12-24 18:25 | XMS_ITS ---
Author Organization [facility] Address [address] [facility] [place] [address] Care Team Providers Care Mill Operator Head Name Role Phone Buddy Morrow MD Primary Care Provider Benjamin Skelton Unavailable [phone] Allergies Allergen (clinical drug ingredient) Drug/Non Drug [...] user? No Vital Signs Blood pressure systolic 122 mm Hg 03/27/20 Blood pressure diastolic 74 mm Hg 024 Height 5ft 4in in 03/27/2024 Weight 185 lbs 03/27/2024 BMI 31.75 kg/m2 03/27/2024 Procedures Procedure Date Ordered Date Performed Result Body Sit e 64832-ZZUBSVJ NAIL, 6 OR MORE 03/27/2024 N/A 47082-ARXT SKIN LESIONS, OVER 4 03/27/2024 N/A Encounters Encounter Location Date Provider Diagnosis [facility] [address] [address] 03/27/2024 Benjamin Landeros Type 1 diabetes mellitus with diabetic polyneuropathy E10.42 and Tinea unguium B35.1 Assessments Encounter Date Diagnosis (ICD Code) Assessment Notes Treatment Notes Treatment Clinical Notes Section Notes 03/27/2024 Type 1 diabetes mellitus with diabetic polyneuropathy (ICD-10 - E10.42) 03/27/2024 Tinea unguium (ICD-10 - B35.1) Plan Of Treatment Pending Test Test Name Order Date 99883-YCEUGUS NAIL, 6 OR MORE 03/27/2024 32270-LCAE SKIN LESIONS, OVER 4 03/27/20 24 Next Appt Details Follow Up: prn, Reason: Provider Name:Benjamin Landeros , 01/15/2025 01:30:00 PM, [address] [place] [address], [phone], Procedure Notes * Category Sub-Category Detail Notes [...] as necessary. Patient chooses, no pharmaceutical tx (07644) Keratoma Treatment Parring or Cutting o f Benign Hyperkeratotic Lesion(s) 60905 ( >4 Lesions) - The Benign hyperkeratotic lesions, as described above were pared, and/or cut utilizing a sterile #15 blade, tissue nippers, and/or dremel Progress Notes * Miriam NOGUEIRA JDOB: (73 yo F)Acc No.[id number]:03/27/2024 Progress Note Patient:Tammie Martinez Provider:?Benjamin Landeros DPM :1950???Age:73 Y???Sex:Female D ate:03/27/2024 Address:[facility] [address] , [place], [place] Pcp:Buddy Morrow MD Subjective: * Chief Complaints: [...] ?Marital status: . 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 * Medications:?TakingPantopraz ole Sodium 40 MG Tablet [...] as necessary. Patient chooses, no pharmaceutical tx (75313).?Keratoma Treatment:?Parring or Cutting of Benign Hyperkeratotic Lesion(s)?85936 ( >4 Lesions) - The Benign hyperkeratotic lesions, as described above were pared, and/or cut utilizing a sterile #15 blade, tissue nippers, and/or dremel.? * Procedure Codes:?67931 DEBRI DE NAIL, 6 OR MORE, Modifiers: XS 11393 TRIM SKIN LESIONS, OVER 4, Modifiers: XS [...]
--- OUTSIDE RECORDS SUMMARY | 2024-12-24 18:25 | XMS_ITS ---
Author Organization [facility] Address [address] [facility] [place], [place] [address] Care Team Providers Care Choirmaster Name Role Phone Buddy Morrow MD Primary Care Provider Benjamin Skelton Unavailable [phone] Allergies Allergen (clinical drug ingredient) Drug/Non Drug [...] user? No Vital Signs Blood pressure systolic 103 mm Hg 10/09/20 24 Blood pressure diastolic 74 mm Hg 024 Height 5ft4in in 10/09/2024 Weight 181 lbs 10/09/2024 BMI 31.07 kg/m2 10/09/2024 Procedures Procedure Date Ordered Date Performed Result Body Sit e 55059-BAJIHLY NAIL, 6 OR MORE 10/09/2024 N/A 72109-EBTP SKIN LESIONS, OVER 4 10/09/2024 N/A Encounters Encounter Location Date Provider Diagnosis [facility] [address] [address] 10/09/2024 Benjamin Landeros Type 1 diabetes mellitus with diabetic polyneuropathy E10.42 and Tinea unguium B35.1 Assessments Encounter Date Diagnosis (ICD Code) Assessment Notes Treatment Notes Treatment Clinical Notes Section Notes 10/09/2024 Type 1 diabetes mellitus with diabetic polyneuropathy (ICD-10 - E10.42) 10/09/2024 Tinea unguium (ICD-10 - B35.1) 10/09/2024 Other Plan Of Treatment Pending Test Test Name Order Date 77199-LSGVMDJ NAIL, 6 OR MORE 10/09/2024 22361-FUGR SKIN LESIONS, OVER 4 10/09/20 24 Next Appt Details Follow Up: prn, Reason: Provider Name:Benjamin Landeros , 01/15/2025 01:30:00 PM, [address] [place] [address], [phone], Procedure Notes * Category Sub-Category Detail Notes [...] use of a nail nipper and/or dremel-type convex grinder, to a more viable healthy nail plate or bed tissue 6-10. Silver nitrate used for any petechial bleeding as necessary. Definitive antifungal treatment options have been reviewed and discussed with the patient. The patient chooses, no pharmaceutical tx - 63998 Keratoma Treatment Parring or Cutting o f Benign Hyperkeratotic Lesion(s) (-57) More than 4 Lesions - The Benign hyperkeratotic lesions, as described in exam, were pared, and/or cut utilizing a sterile 15 blade, tissue nippers, and/or dremel - 31799 Progress Notes * Miriam NOGUEIRA JDOB: (74 yo F)Acc No.[id number]:10/09/2024 Progress Note Patient:?ROLANDOODILIA Tammie yonathan Ward Provider:?Benjamin Landeros DPM :1950???Age:74 Y???Sex:Female D ate:10/09/2024 Address:[facility] [address], [facility] Pcp:Buddy Morrow MD Subjective: * Chief Complaints: [...] ?Marital status: . 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 * Medications:?TakingPantopraz ole Sodium 40 MG Tablet [...] use of a nail nipper and/or dremel-type convex grinder, to a more viable healthy nail plate or bed tissue 6-10. Silver nitrate used for any petechial bleeding as necessary. Definitive antifungal treatment options have been reviewed and discussed with the patient. The patient chooses, no pharmaceutical tx - 79791.?Keratoma Treatment:?Parring or Cutting of Benign Hyperkeratotic Lesion(s)?(-57) More than 4 Lesions - The Benign hyperkeratotic lesions, as described in exam, were pared, and/or cut utilizing a sterile 15 blade, tissue nippers, and/or dremel - 41952.? * Procedure Codes:?08522 DEBRI DE NAIL, 6 OR MORE, Modifiers: XS 72539 TRIM SKIN LESIONS, OVER 4, Modifiers: XS * Follow Up:?prn * Images: * Sign off status: Completed true * Provider:?Benjamin Landeros DPM Date:?2023 Generated for Stephanie smith/Jareth/Ania on:?12/24/2024 06:24 PM EST History and Physical Notes * [...]
== END 2024-12-24 13:43 | disposition home or self-care (01) ==
LOC: HO.MAMMO 13:42
PROVIDERS: PCP Internal Medicine; Visit Provider Internal Medicine
DX: Z12.31 Encounter for screening mammogram for malignant neoplasm of breast (principal)
CPT/HCPCS: 77063; 77067

== ENCOUNTER → 2024-12-24 13:45 | Outpatient (BNV) | payer MEDICARE, OTHER, SELFPAY | PROVIDERS: PCP Internal Medicine; Visit Provider Internal Medicine | DX: Z12.31 Encounter for screening mammogram for malignant neoplasm of breast (principal) | CPT/HCPCS: 77063; 77067 ==

== ENCOUNTER 2025-01-23 07:59 | Day surgery (SDC) | payer MEDICARE, OTHER, SELFPAY ==
--- OUTSIDE RECORDS SUMMARY | 2024-11-13 06:52 | XMS_ITS ---
Author Organization [facility] Address [address] [facility] [place], [place] [address] Care Team Providers Care Pressure Sealer And Tester Name Role Phone Buddy Morrow MD Primary Care Provider Benjamin Skelton Unavailable [phone] Allergies Allergen (clinical drug ingredient) Drug/Non Drug [...] Ordered Date Performed Result Body Sit e 74762-FRVGCUQ NAIL, 6 OR MORE 10/09/2024 N/A 58105-DVOY SKIN LESIONS, OVER 4 10/09/2024 N/A Encounters Encounter Location Date Provider Diagnosis [facility] [address] [address] 10/09/2024 Benjamin Landeros Type 1 diabetes mellitus with diabetic polyneuropathy E10.42 and Tinea unguium B35.1 Assessments Encounter Date Diagnosis (ICD Code) Assessment Notes Treatment Notes Treatment Clinical Notes Section Notes 10/09/2024 Type 1 diabetes mellitus with diabetic polyneuropathy (ICD-10 - E10.42) 10/09/2024 Tinea unguium (ICD-10 - B35.1) 10/09/2024 Other Plan Of Treatment Pending Test Test Name Order Date 08411-RGBWGYQ NAIL, 6 OR MORE 10/09/2024 28074-UGZJ SKIN LESIONS, OVER 4 10/09/20 24 Next Appt Details Follow Up: prn, Reason: Provider Name:Benjamin Landeros , 01/15/2025 01:30:00 PM, [address] [place] [address], [phone], Procedure Notes * Category Sub-Category Detail Notes [...] use of a nail nipper and/or dremel-type od grinder operator, to a more viable healthy nail plate or bed tissue 6-10. Silver nitrate used for any petechial bleeding as necessary. Definitive antifungal treatment options have been reviewed and discussed with the patient. The patient chooses, no pharmaceutical tx - [address]16 Keratoma Treatment Parring or Cutting o f Benign Hyperkeratotic Lesion(s) (-57) More than 4 Lesions - The Benign hyperkeratotic lesions, as described in exam, were pared, and/or cut utilizing a sterile 15 blade, tissue nippers, and/or dremel - 20175 Progress Notes * Miriam NOGUEIRA JDOB: (74 yo F)Acc No.[id number]:10/09/2024 Progress Note Patient:?ROLANDOODILIA Tammie yonathan Ward Provider:?Benjamin Landeros DPM :1950???Age:74 Y???Sex:Female D ate:10/09/2024 Address:[address] [facility] Pcp:Buddy Morrow MD Subjective: * Chief Complaints: [...] ?Marital status: . 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 * Medications:?TakingPantopraz ole Sodium 40 MG Tablet [...] use of a nail nipper and/or dremel-type od grinder operator, to a more viable healthy nail plate or bed tissue 6-10. Silver nitrate used for any petechial bleeding as necessary. Definitive antifungal treatment options have been reviewed and discussed with the patient. The patient chooses, no pharmaceutical tx - 11099.?Keratoma Treatment:?Parring or Cutting of Benign Hyperkeratotic Lesion(s)?(-57) More than 4 Lesions - The Benign hyperkeratotic lesions, as described in exam, were pared, and/or cut utilizing a sterile 15 blade, tissue nippers, and/or dremel - 64441.? * Procedure Codes:?64625 DEBRI DE NAIL, 6 OR MORE, Modifiers: XS 15857 TRIM SKIN LESIONS, OVER 4, Modifiers: XS * Follow Up:?prn * Images: * Sign off status: Completed true * Provider:?Benjamin Landeros DPM Date:?2023 Generated for Stephanie smith/Jareth/Ania on:?11/13/2024 06:52 AM EST History and Physical Notes * [...]
--- OUTSIDE RECORDS SUMMARY | 2024-11-13 06:52 | XMS_ITS ---
Author Organization [facility] Address [address] [facility] [place] [address] Care Team Providers Care Cell Feed Department Supervisor Name Role Phone Buddy Morrow MD Primary Care Provider Benjamin Skelton Unavailable [phone] Allergies Allergen (clinical drug ingredient) Drug/Non Drug [...] Ordered Date Performed Result Body Sit e 02777-RQVKMDW NAIL, 6 OR MORE 06/26/2024 N/A 13200-HBDW SKIN LESIONS, OVER 4 06/26/2024 N/A Encounters Encounter Location Date Provider Diagnosis [facility] [place] [address] [place] [address] 06/26/2024 Benjamin Landeros Type 1 diabetes mellitus [...] INSTRUCTIONS.pdf) Pending Test Test Name Order Date 36067-IFKUOQZ NAIL, 6 OR MORE 06/26/2024 71725-STYZ SKIN LESIONS, OVER 4 06/26/20 24 Next Appt Details Follow Up: prn, Reason: Provider Name:Benjamin Landeros , 01/15/2025 01:30:00 PM, [address] [place] [address], [phone], Procedure Notes * Category Sub-Category Detail Notes [...] as necessary. Patient chooses, no pharmaceutical tx (41101) Keratoma Treatment Parring or Cutting o f Benign Hyperkeratotic Lesion(s) 92731 ( >4 Lesions) - The Benign hyperkeratotic lesions, as described above were pared, and/or cut utilizing a sterile #15 blade, tissue nippers, and/or dremel Progress Notes * Miriam NOGUEIRA JDOB: (73 yo F)Acc No.[id number]:06/26/2024 Progress Note Patient:?Tammie Nogueira Provider:?Benjamin Landeros DPM :1950???Age:73 Y???Sex:Female D ate:06/26/2024 Address:[address], [id number] Pcp:Buddy Morrow MD Subjective: * Chief Complaints: [...] ?Marital status: . 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 * Medications:?TakingPantopraz ole Sodium 40 MG Tablet [...] 2.?Type 1 diabetes mellitus with diabetic polyneuropathy?Procedure: 07748-AKNTUCA NAIL, 6 OR MORE ?Procedure: 45795-IVJB SKIN LESIONS, OVER 4 * Procedures:?Debride Nail 6-10:?Nail debridement?Nail debridement performed extensively to reduce/remove overall nail length, girth, thickness, subungual debris, and necrotic tissue, by manual and electrical means through the use of a nail nipper and/or dremel, to more viable healthy nail plate or bed tissue 1-5. Silver nitrate used for any petechial bleeding as necessary. Patient chooses, no pharmaceutical tx (87065).?Keratoma Treatment:?Parring or Cutting of Benign Hyperkeratotic Lesion(s)?63807 ( >4 Lesions) - The Benign hyperkeratotic lesions, as described above were pared, and/or cut utilizing a sterile #15 blade, tissue nippers, and/or dremel.? * Procedure Codes:?24948 DEBRI DE NAIL, 6 OR MORE, Modifiers: XS 32768 TRIM SKIN LESIONS, OVER 4, Modifiers: XS [...] Provider:?Benjamin Landeros DPM Date:?2023 Generated for Stephanie simth/Jareth/Ania on:?11/13/2024 06:52 AM EST History and Physical [...]
--- OUTSIDE RECORDS SUMMARY | 2024-11-13 06:52 | XMS_ITS | Patient Health Record ---
Author Organization [facility] Address [address] [facility] [place] [address] Care Team Providers Care Tours Hostess Name Role Phone Buddy Morrow MD Primary Care Provider Benjamin Skelton Unavailable [phone] Allergies Allergen (clinical drug ingredient) Drug/Non Drug [...] Problem Acquired hammer toe of right foot (5293912119103097 ) Other hammer toe(s) (acquired), right foot (M20.41) Active confirmed Response to treatment, Improvemen t Problem Acquired hammer toe of left foot (8868444137002566 ) Other hammer toe(s) (acquired), left foot (M20.42) Active confirmed Response to treatment, Improvemen t Problem Polyneuropathy due to diabetes mellitus type I (065041818) 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 confirmed Vital Signs Blood pressure diastolic 74 mm Hg 10/09/2024 Height 5ft4in in 10/09/2024 Blood pressure systolic 103 mm Hg 10/09/2024 Weight 181 lbs 10/09/2024 BMI 31.07 kg/m2 10/09/2024 Procedures Procedure Date Ordered Date Performed Result Body Sit e 45776-BHIOYNP NAIL, 6 OR MORE 12/27/2023 N/A 53662-RTCG SKIN LESIONS, OVER 4 12/27/2023 N/A 16719-UPOEMLD NAIL, 6 OR MORE 03/27/2024 N/A 11019-JBII SKIN LESIONS, OVER 4 03/27/2024 N/A 69136-LVZVSTT NAIL, 6 OR MORE 06/26/2024 N/A 32128-OFPL SKIN LESIONS, OVER 4 06/26/2024 N/A 92751-GCSPDYI NAIL, 6 OR MORE 10/09/2024 N/A 24346-LPBV SKIN LESIONS, OVER 4 10/09/2024 N/A Encounters Encounter Location Date Provider Diagnosis [address] [address] 12/27/2023 Benjaminabram CrandallLeti Type 1 diabetes mellitus with diabetic polyneuropathy E10.42 and Tinea unguium B35.[address] [address] 03/27/2024 Benjaminabram CrandallLeti Type 1 diabetes mellitus with diabetic polyneuropathy E10.42 and Tinea unguium B35.[address] [address] 06/26/2024 Benjamin Leti Type 1 diabetes mellitus with diabetic polyneuropathy E10.42 ; Tinea unguium B35.1 ; Other hammer toe(s) (acquired), right foot M20.41 and Other hammer toe(s) (acquired), left foot M20.[address] [address] 10/09/2024 Benjaminabram CrandallLeti Type 1 diabetes mellitus [...] 02/11/2015 Hemoglobin A1c 12/02/2015 Hemoglobin A1c 06/03/2017 38749-JCMYCPY NAIL, 6 OR MORE 10/09/2024 84752-DAUZVPO NAIL, 6 OR MORE 09/12/2020 99897-USNLLXZ NAIL, 6 OR MORE 12/12/2020 31657-EEEVQEU NAIL, 6 OR MORE 03/13/2021 61112-BQELWGR NAIL, 6 OR MORE 06/12/2021 79004-HPELPGR NAIL, 6 OR MORE 09/18/2021 87719-QLFZKQN NAIL, 6 OR MORE 12/18/2021 50412-IJCNJIN NAIL, 6 OR MORE 03/23/2022 11076-GBIFJTF NAIL, 6 OR MORE 06/25/2022 70485-PHNKNON NAIL, 6 OR MORE 09/24/2022 25497-NFVPYGI NAIL, 6 OR MORE 12/24/2022 42835-IIVZIST NAIL, 6 OR MORE 03/25/2023 93078-XBMAOJV NAIL, 6 OR MORE 06/24/2023 14576-BUUAYOP NAIL, 6 OR MORE 09/27/2023 00890-TRFDCPE NAIL, 6 OR MORE 12/27/2023 28044-SYYXBER NAIL, 6 OR MORE 03/27/2024 83002-TCOLFIR NAIL, 6 OR MORE 06/26/2024 05809-LGVIDWO NAIL, 6 OR MORE 08/22/2015 32261-KEBFWZM NAIL, 6 OR MORE 05/16/2015 76563-QXXUQYN NAIL, 6 OR MORE 02/11/2015 31484-VJVFJLC NAIL, 6 OR MORE 11/02/2013 77159-DFWRGKX NAIL, 6 OR MORE 02/01/2014 00044-VIGYMVM NAIL, 6 OR MORE 05/10/2014 85978-XKVBXAZ NAIL, 6 OR MORE 08/13/2014 33190-KRPXPZV NAIL, 6 OR MORE 11/12/2014 95973-FYALIIG NAIL, 6 OR MORE 07/27/2011 36905-AEROWUS NAIL, 6 OR MORE 10/15/2011 83017-SVJIAJM NAIL, 6 OR MORE 01/14/2012 32674-IPMFQYV NAIL, 6 OR MORE 04/11/2012 73552-RAAHFJT NAIL, 6 OR MORE 07/28/2012 30928-CYEDMKA NAIL, 6 OR MORE 10/13/2012 15631-UYGRTLQ NAIL, 6 OR MORE 01/12/2013 00214-IJUJGWV NAIL, 6 OR MORE 04/13/2013 03790-KEVMDVW NAIL, 6 OR MORE 08/03/2013 15146-VQONQOC NAIL, 6 OR MORE 12/02/2015 96057-KWAAUSW NAIL, 6 OR MORE 03/02/2016 85403-NRZJAMN NAIL, 6 OR MORE 06/11/2016 64496-VDMKFUN NAIL, 6 OR MORE 09/10/2016 08466-KBFUGCB NAIL, 6 OR MORE 12/10/2016 43433-ERMUEFR NAIL, 6 OR MORE 03/04/2017 93010-YSVNJQK NAIL, 6 OR MORE 06/07/2017 81653-AUITYZM NAIL, 6 OR MORE 09/06/2017 02009-HBRCDJL NAIL, 6 OR MORE 12/09/2017 83672-EVBIKAM NAIL, 6 OR MORE 03/10/2018 25989-LNGKFIT NAIL, 6 OR MORE 06/13/2018 91237-VNCUKIO NAIL, 6 OR MORE 09/12/2018 58549-XTVCMEA NAIL, 6 OR MORE 12/26/2018 05225-HDMKFWQ NAIL, 6 OR MORE 03/27/2019 69812-LDBKLJA NAIL, 6 OR MORE 06/26/2019 63299-RNVZNIC NAIL, 6 OR MORE 09/25/2019 92027-BDNFAHM NAIL, 6 OR MORE 12/25/2019 53343-BZJWOXJ NAIL, 6 OR MORE 06/13/2020 72827- Debride <25 sq cm 08/03/2013 42446-UOIZ SKIN LESIONS, OVER 4 11/02/20 13 07884-LFBE SKIN LESIONS, OVER 4 11/12/20 14 74358-TUNP SKIN LESIONS, OVER 4 08/13/20 14 69973-XDZK SKIN LESIONS, OVER 4 05/10/20 14 62679-ZRRL SKIN LESIONS, OVER 4 02/02/20 14 11281-QYLE SKIN LESIONS, OVER 4 02/12/20 15 82427-VZIH SKIN LESIONS, OVER 4 05/16/20 15 23096-SYJK SKIN LESIONS, OVER 4 08/22/20 15 53280-MIMM SKIN LESIONS, OVER 4 12/02/19 16 55476-KEPR SKIN LESIONS, OVER 4 06/13/20 20 76406-UZZJ SKIN LESIONS, OVER 4 12/25/19 20 72659-ITLJ SKIN LESIONS, OVER 4 09/25/20 19 80622-NPDH SKIN LESIONS, OVER 4 06/26/20 19 76849-UQUE SKIN LESIONS, OVER 4 03/27/20 19 07447-CKTU SKIN LESIONS, OVER 4 12/26/19 19 88009-OAXB SKIN LESIONS, OVER 4 09/12/20 18 21116-ASDK SKIN LESIONS, OVER 4 06/13/20 18 76262-ZSET SKIN LESIONS, OVER 4 03/10/20 18 08429-YODC SKIN LESIONS, OVER 4 12/09/19 18 92556-QNZL SKIN LESIONS, OVER 4 09/06/20 17 07541-ZHNJ SKIN LESIONS, OVER 4 03/04/20 17 40658-GUFP SKIN LESIONS, OVER 4 06/07/20 17 74338-KEHK SKIN LESIONS, OVER 4 12/10/19 17 25492-YCGW SKIN LESIONS, OVER 4 09/10/20 16 72845-RYYD SKIN LESIONS, OVER 4 06/11/20 16 00170-VPVQ SKIN LESIONS, OVER 4 03/02/20 16 21096-KZEV SKIN LESIONS, OVER 4 06/26/20 24 32218-BQIK SKIN LESIONS, OVER 4 03/27/20 24 96163-WCXK SKIN LESIONS, OVER 4 12/27/19 24 26743-OVLC SKIN LESIONS, OVER 4 09/27/20 32728-TPWI SKIN LESIONS, OVER 4 06/24/20 23 74642-WGHF SKIN LESIONS, OVER 4 03/25/20 23 51281-TLWN SKIN LESIONS, OVER 4 12/24/19 23 00038-QQWF SKIN LESIONS, OVER 4 09/24/20 40658-LLSE SKIN LESIONS, OVER 4 07/29/20 22 79585-LSJX SKIN LESIONS, OVER 4 03/23/20 22 55344-RZFR SKIN LESIONS, OVER 4 12/18/19 22 48282-EKJJ SKIN LESIONS, OVER 4 09/18/20 85429-TVNK SKIN LESIONS, OVER 4 06/12/20 21 11012-EHQN SKIN LESIONS, OVER 4 03/13/20 18171-WNRU SKIN LESIONS, OVER 4 12/12/19 21 26739-LDZS SKIN LESIONS, OVER 4 09/12/20 16418-SOCX SKIN LESIONS, OVER 4 10/09/20 24 07104-NCKM SKIN LESIONS, 2 TO 4 07/27/20 11 96543-TDJK SKIN LESIONS, 2 TO 4 04/13/20 13 17339-XFRE SKIN LESIONS, 2 TO 4 01/12/20 13 54950-GKMB SKIN LESIONS, 2 TO 4 10/13/20 12 23217-GGKQ SKIN LESIONS, 2 TO 4 07/28/20 12 17513-SEGO SKIN LESIONS, 2 TO 4 04/11/20 12 61235-ALDR SKIN LESIONS, 2 TO 4 01/14/20 12 70388-TUIZ SKIN LESIONS, 2 TO 4 10/15/20 11 HEMOGLOBIN A1C (GLYCOHEMOGLOBIN) 020 Next Appt Details Provider Name:Benjamin Landeros , 01/15/2025 01:30:00 PM, [address], [place], [address], Insurance Providers Payer Name Payer Address Payer Phone Subscriber Number Group Number Insured Name Patient Relationship to Insured Coverage Start Date Coverage End Date [employer] Medicare Adv-[id number] [address] [address] [place] [address] [id number] Miriam Henry Self - patient is the insured [facility] Claims [facility] Office of Community Care [address] [address] [place] [address] [id number] Miriam Henry Self - patient is the [...] Hospitalization History Reason Date(Month/Year) [facility] virus 11/21/2017 [facility]- hiatal hernia surgery, esophagus surgery 05/17/24 [facility]Hiatal Hernia flare up 02/27/2021 [facility]- Hiatal hernia flare up 05/21/19
--- OUTSIDE RECORDS SUMMARY | 2024-11-13 06:52 | XMS_ITS ---
Author Organization [facility] Address [address] [facility] [address] [place] [address] Care Team Providers Care Aoc Director Intelligence Officer Name Role Phone Buddy Morrow MD Primary Care Provider Benjamin Skelton Unavailable [phone] Allergies Allergen (clinical drug ingredient) Drug/Non Drug [...] Ordered Date Performed Result Body Sit e 73352-IIGKWIW NAIL, 6 OR MORE 03/27/2024 N/A 73366-TGQS SKIN LESIONS, OVER 4 03/27/2024 N/A Encounters Encounter Location Date Provider Diagnosis [facility] [address] [address] 03/27/2024 Benjamin Landeros Type 1 diabetes mellitus with diabetic polyneuropathy E10.42 and Tinea unguium B35.1 Assessments Encounter Date Diagnosis (ICD Code) Assessment Notes Treatment Notes Treatment Clinical Notes Section Notes 03/27/2024 Type 1 diabetes mellitus with diabetic polyneuropathy (ICD-10 - E10.42) 03/27/2024 Tinea unguium (ICD-10 - B35.1) Plan Of Treatment Pending Test Test Name Order Date 46764-VCUAPNJ NAIL, 6 OR MORE 03/27/2024 54733-YSIC SKIN LESIONS, OVER 4 03/27/20 24 Next Appt Details Follow Up: prn, Reason: Provider Name:Benjamin Landeros , 01/15/2025 01:30:00 PM, [address] [place] [address], [phone], Procedure Notes * Category Sub-Category Detail Notes [...] as necessary. Patient chooses, no pharmaceutical tx (23650) Keratoma Treatment Parring or Cutting o f Benign Hyperkeratotic Lesion(s) 59550 ( >4 Lesions) - The Benign hyperkeratotic lesions, as described above were pared, and/or cut utilizing a sterile #15 blade, tissue nippers, and/or dremel Progress Notes * Miriam NOGUEIRA JDOB: (73 yo F)Acc No.[id number]:03/27/2024 Progress Note Patient:Tammie Martinez Provider:?Benjamin Landeros DPM :1950???Age:73 Y???Sex:Female D ate:03/27/2024 Address:[facility] , [place], [place] Pcp:Buddy Morrwo MD Subjective: * Chief Complaints: * ???At [...] ?Marital status: . 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 * Medications:?TakingPantopraz ole Sodium 40 MG Tablet [...] as necessary. Patient chooses, no pharmaceutical tx (44418).?Keratoma Treatment:?Parring or Cutting of Benign Hyperkeratotic Lesion(s)?37116 ( >4 Lesions) - The Benign hyperkeratotic lesions, as described above were pared, and/or cut utilizing a sterile #15 blade, tissue nippers, and/or dremel.? * Procedure Codes:?26656 DEBRI DE NAIL, 6 OR MORE, Modifiers: XS 23358 TRIM SKIN LESIONS, OVER 4, Modifiers: XS [...]
[2025-01-21 13:43] VITALS: BMI 34.2
--- NOTE | 2025-01-22 09:11 | HO.ANESPROP2 ---
Documented by User: Nickie Zurita NP 01/22/25 09:14 HPI - Anesthesia Eval Consult details Narrative: 74yo F for Colonoscopy Anesthesia Pre-Procedure Meds Is the patient on any of the following meds?: GLP1/DPP4 PMFSH Active Problems Active Problems: All Active Problems Urinary frequency (Acute) Vaginal bleeding (Acute) UTI symptoms (Acute) Urinary incontinence (Acute) Preop exam for internal medicine (Acute) Screening for colon cancer (Acute) Diabetes mellitus with coincident hypertension (Acute) Osteoarthritis of carpometacarpal joint of left thumb (Acute) First degree heart block (Acute) Atherosclerotic cardiovascular disease (Acute) Ankle edema (Acute) Adult general medical exam (Acute) Incarcerated paraesophageal hernia (Acute) Other and unspecified hyperlipidemia (Acute) Essential hypertension (Acute) Type 2 diabetes mellitus with unspecified complications (Acute) Preoperative cardiovascular examination (Acute) Primary osteoarthritis of left knee (Acute) Primary osteoarthritis of right knee (Acute) Dysphagia (Acute) Hypoglycemia unawareness associated with type 2 diabetes mellitus (Acute) Hyperlipidemia associated with type 2 diabetes mellitus (Acute) Obesity (Acute) Post-menopausal (Acute) Screening for breast cancer (Acute) Hiatal hernia (Acute ~04/2024) Diabetic polyneuropathy associated with type 2 diabetes mellitus (Acute) Diabetes type 2, uncontrolled (Acute) Obesity (BMI 30-39.9) (Acute) Hypertension (Acute) Hypothyroidism (Acute) 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 (Acute) USP (current) use of insulin (Acute) Past Medical History Medical History (Updated 01/06/25 @ 12:05 by Emily Overton MD) Incontinence Hx of esophageal ulcer (~04/2024) Dysphagia Hypoglycemia unawareness associated with type 2 diabetes mellitus Hyperlipidemia associated with type 2 diabetes mellitus Obesity Post-menopausal Screening for breast cancer Dizziness Pre-op exam Hiatal hernia (~04/2024) IDDM (insulin dependent diabetes mellitus) Pre-op exam Diabetic polyneuropathy associated with type 2 diabetes mellitus Obesity (BMI 30-39.9) Hypertension Hypothyroidism 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 Diabetes type 2, uncontrolled Family History Family History Brother Diabetes Father Lung cancer Mother HTN (hypertension) Family history of problems with anesthesia: No Surgical History Surgical History (Updated 01/21/25 @ 13:37 by Mariana Dang RN) History of abdominal paracentesis History of esophagogastroduodenoscopy (EGD) History of colonoscopy History of repair of hiatal hernia History of cardiac catheterization Hx of hammer toe correction Hx of shoulder surgery Hx of tonsillectomy Hx laparoscopic cholecystectomy Hx of appendectomy History of Problems with Anesthesia: No Social History Social History Household Members: Family Housing: House Are you a primary patient care secretary to a significant other at home: No Do you presently have visiting nurse or other home services: No Alcohol intake: current Alcohol intake frequency: holidays/special occasions only Patient Tobacco Use Status: Former Tobacco user Tobacco use type: Cigarette Years Smoked: 20 e-Cigarette/Vaping Use: Never Used Second Hand Smoke Exposure: Yes Use of substances other than those prescribed or required for medical reasons: No Have you been hit, kicked, punched, or otherwise hurt by someone within the past year? If so, by whom?: No Are you DNR?: No Advance Directives: No Advance Directives Information Provided: Yes Recently lost weight without trying: No Nutrition Risks: No Nutritional Risk Patient : No service: No Current occupational status: retired Cognitive needs: No Hearing needs: No Vision needs: Yes (Glasses) Meds Allergies Allergy/AdvReac Type Severity Reaction Status Date / Time hydrocodone [From VICODIN] Allergy Unknown HEADACHE Verified 01/23/25 08:28 oxycodone [OXYCODONE] Allergy Unknown HIVES Verified 01/23/25 08:28 procaine [From NOVOCAIN] Allergy Unknown FAINTED Verified 01/23/25 08:28 Home Medications ?Medication ?Instructions ?Recorded ?Confirmed ?Last Taken ?Type aspirin 81 mg tablet,delayed 81 mg PO DAILY 02/27/21 01/21/25 01/16/25 History release cholecalciferol (vitamin D3) 25 25 mcg PO DAILY 02/27/21 01/21/25 12/29/23 History mcg (1,000 unit) capsule multivitamin 1 tab PO DAILY 02/27/21 01/21/25 Unknown History niacin 50 mg tablet 50 mg PO BEDTIME 10/26/23 01/21/25 Unknown History gabapentin 600 mg tablet 600 mg PO DAILY 01/17/24 01/21/25 Unknown History furosemide 20 mg tablet 20 mg PO DAILY PRN swelling 08/15/24 01/21/25 Unknown History Exam Height,Weight and Vital Signs: Height 5 ft 4 in Weight 90.265 kg Assessment and Plan Assessment Anesthesia Assessment: Chart Reviewed Final Anesthetic Review Family History of Problems with Anesthesia: No History of Problems with Anesthesia: No Documented by User: Berenice Rojas MD 01/23/25 09:52 [facility] Past Medical History Medical History (Updated 01/06/25 @ 12:05 by Emily Overton MD) Incontinence Hx of esophageal ulcer (~04/2024) Dysphagia Hypoglycemia unawareness associated with type 2 diabetes mellitus Hyperlipidemia associated with type 2 diabetes mellitus Obesity Post-menopausal Screening for breast cancer Dizziness Pre-op exam Hiatal hernia (~04/2024) IDDM (insulin dependent diabetes mellitus) Pre-op exam Diabetic polyneuropathy associated with type 2 diabetes mellitus Obesity (BMI 30-39.9) Hypertension Hypothyroidism 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 USP (current) use of insulin Diabetes type 2, uncontrolled Family History Family History Brother Diabetes Father Lung cancer Mother HTN (hypertension) Surgical History Surgical History (Updated 01/21/25 @ 13:37 by Mariana Dang RN) History of abdominal paracentesis History of esophagogastroduodenoscopy (EGD) History of colonoscopy History of repair of hiatal hernia History of cardiac catheterization Hx of hammer toe correction Hx of shoulder surgery Hx of tonsillectomy Hx laparoscopic cholecystectomy Hx of appendectomy Social History Social History Household Members: Family Housing: House Are you a primary patient care secretary to a significant other at home: No Do you presently have visiting nurse or other home services: No Alcohol intake: current Alcohol intake frequency: holidays/special occasions only Patient Tobacco Use Status: Former Tobacco user Tobacco use type: Cigarette Years Smoked: 20 e-Cigarette/Vaping Use: Never Used Second Hand Smoke Exposure: Yes Use of substances other than those prescribed or required for medical reasons: No Have you been hit, kicked, punched, or otherwise hurt by someone within the past year? If so, by whom?: No Are you DNR?: No Advance Directives: No Advance Directives Information Provided: Yes Recently lost weight without trying: No Nutrition Risks: No Nutritional Risk Patient : No service: No Current occupational status: retired Cognitive needs: No Hearing needs: No Vision needs: Yes (Glasses) Meds Allergies Allergy/AdvReac Type Severity Reaction Status Date / Time hydrocodone [From VICODIN] Allergy Unknown HEADACHE Verified 01/23/25 08:28 oxycodone [OXYCODONE] Allergy Unknown HIVES Verified 01/23/25 08:28 procaine [From NOVOCAIN] Allergy Unknown FAINTED Verified 01/23/25 08:28 Home Medications ?Medication ?Instructions ?Recorded ?Confirmed ?Last Taken ?Type aspirin 81 mg tablet,delayed 81 mg PO DAILY 02/27/21 01/21/25 01/16/25 History release cholecalciferol (vitamin D3) 25 25 mcg PO DAILY 02/27/21 01/21/25 12/29/23 History mcg (1,000 unit) capsule multivitamin 1 tab PO DAILY 02/27/21 01/21/25 Unknown History niacin 50 mg tablet 50 mg PO BEDTIME 10/26/23 01/21/25 Unknown History gabapentin 600 mg tablet 600 mg PO DAILY 01/17/24 01/21/25 Unknown History furosemide 20 mg tablet 20 mg PO DAILY PRN swelling 08/15/24 01/21/25 Unknown History Exam Airway Mallampati Class: III TM Dist: >3cm Neck ROM: Full Denture: Upper and Lower Assessment and Plan Assessment Anesthesia Assessment: Anesthesia Plan Discussed Final Anesthetic Review NPO: Yes ASA Class: III Final Preanesthetic Review: No Changes in Pt Med Stat, Meds/Allgs Chart Reviewed, Consent Obtained/Reviewed, Anes Risks/Benef Reviewed and DNR Form (If Appl.) Patient Risk: Intermediate Procedure Risk: Low Anesthetic Plan Anesthetic Plan: TIVA Disposition: Standard PACU
[2025-01-23 08:28] VITALS: BP 139/81; PULSE 83; RESP 16; TEMP 36.8; O2SAT 97; BMI 32.8
[2025-01-23 08:29] LABS: Glucose, Whole Blood 155 mg/dL (60-115)
[2025-01-23] MEDS: Lactated Ringers 1,000 ML 100 ML IVCONT (08:50)
--- NOTE | 2025-01-23 09:20 | P.HPSUR_ITS ---
Pre-Procedural Eval Section A - 24 Hr Update-Section A only Date of Service: 01/23/25 Section B - Complete if H&P > 30 days Chief Complaint: Epigastric pain Relevant Family History (Specify if Yes): No Relevant Social History: None Present Medications: see Short Stay Collaborative assessment Medical History: Significant History (Hx of esophageal ulcer (~04/2024) Hiatal hernia (~04/2024) Dysphagia Hypoglycemia unawareness associated with type 2 diabetes mellitus Hyperlipidemia associated with type 2 diabetes mellitus Obesity Post-menopausal Screening for breast cancer Dizziness Pre-op exam IDDM (insulin dependent diabetes me) History of Previous Operations: Relevant previous surgery/procedure and date(s) (History of colonoscopy History of repair of hiatal hernia History of cardiac catheterization Hx of hammer toe correction Hx of shoulder surgery Hx of tonsillectomy Hx laparoscopic cholecystectomy Hx of appendectomy) Allergies: Allergies Allergy/AdvReac Type Severity Reaction Status Date / Time hydrocodone [From VICODIN] Allergy Unknown HEADACHE Verified 01/23/25 08:28 oxycodone [OXYCODONE] Allergy Unknown HIVES Verified 01/23/25 08:28 procaine [From NOVOCAIN] Allergy Unknown FAINTED Verified 01/23/25 08:28 Review of Systems Sugical H&P ROS: Negative: Constitution, Cardiovascular, Respiratory, Neurological, Psychiatric, Hem-Onc, Allergic/Immunologic, Gastrointestinal, Genitourinary, Musculoskeletal, Integumentary, Endocrine and Eye s/Ears/Nose/Throat Exam Surgical H&P Exam: Normal: HEENT, Normal: Heart, Normal: Lungs, Normal: Extremities, Normal: Abdomen, Normal: Skin and Normal: Neurological Plan Diagnosis/Plan: Unchanged I have reviewed the history and physical and performed a pertinent physical examination on my patient. No changes have occurred unless specified. Time Spent With Patient Time: Total time managing care of this patient today ____ minutes.
--- NOTE | 2025-01-23 09:54 | P.OPN-COLO_ITS ---
Colonoscopy Operative Note Operative Note Date of Service: 01/23/25 Narrative: Operative Information Procedure Description: Colonoscopy Indication: colon screening Anesthesia: MAC COLONOSCOPY Instrument: Olympus variable stiffness pediatric scope 190L Colonoscopy Monitoring: Vital signs and clinical assessment, continuous EKG monitoring, Pulse oximetry, Carbon Dioxide monitoring and blood pressure monitoring were done throughout the procedure. Colon withdrawal time was 14 minutes. Procedure: The patient was placed in the left lateral decubitis position and pre-procedure medications were administered. After a digital rectal examination of the ano-rectum, the video colonoscope was inserted into the rectum and advanced through the colon to the cecum/TI. The colonoscope was slowly withdrawn in a retrograde panoramic fashion and the colon mucosa was carefully examined including a retroflexed view of the rectum. Findings and interventions are described below. Procedure Difficulty: difficult, pressure applied, poor prep Findings: Terminal Ileum-not intubated Cecum:normal Ascending Colon: normal Transverse Colon - 7-8 mm sessile polyp removed with cold snare Descending Colon:normal Sigmoid Colon: moderate severe diverticulosis, 6-8 mm sessile polyp removed with cold snare Rectum: Retroflexion with small internal hemorrhoids seen, grade I Anorectum - normal Intervention: cold snare Colon preparation: [place] Bowel Preparation Scale Right colon; 1 Transverse colon: 1 Left colon; 1 (0 = Unprepared colon segment with mucosa not seen due to solid stool that cannot be cleared. 1 = Portion of mucosa of the colon segment seen, but other areas of the colon segment not well seen due to staining, residual stool and/or opaque liquid. 2 = Minor amount of residual staining, small fragments of stool and/or opaque liquid, but mucosa of colon segment seen well. 3 = Entire mucosa of colon segment seen well with no residual staining, small fragments of stool or opaque liquid) Impression and Post Procedure Diagnosis: diverticulosis colon polyps internal hemorrhoids Plan: High fiber diet leaflet Avoid straining at stool, epsom salts and sitz bath, anusol supps or cream Repeat Colonoscopy in 3-6 months or earlier if clinically indicated Above findings were reviewed with the patient and relevant handouts were provided if indicated.
[2025-01-23 10:05] VITALS: BP 123/61; PULSE 70; RESP 14; TEMP 36.1; O2SAT 97
[2025-01-23 10:22] VITALS: BP 160/78; PULSE 65; RESP 18; TEMP 36.2; O2SAT 97
== END 2025-01-23 11:09 | disposition home or self-care (01) ==
PROVIDERS: PCP Internal Medicine; Visit Provider Internal Medicine Gastroenterology
PROC: 0DJD8ZZ Inspection of Lower Intestinal Tract, Via Natural or Artificial Opening Endoscopic (ICD-10-PCS; CPT 45378; principal; 2025-01-23 09:30)
DX: Z12.11 Encounter for screening for malignant neoplasm of colon (principal); D12.3 Benign neoplasm of transverse colon; K57.30 Diverticulosis of large intestine without perforation or abscess without bleeding; K64.0 First degree hemorrhoids; E11.9 Type 2 diabetes mellitus without complications; I10 Essential (primary) hypertension; E78.5 Hyperlipidemia, unspecified; E03.9 Hypothyroidism, unspecified; K21.9 Gastro-esophageal reflux disease without esophagitis; Z79.4 Long term (current) use of insulin; Z87.891 Personal history of nicotine dependence; Z79.82 Long term (current) use of aspirin; Z79.02 Long term (current) use of antithrombotics/antiplatelets; Z79.84 Long term (current) use of oral hypoglycemic drugs; Z79.899 Other long term (current) drug therapy
CPT/HCPCS: 45385; 82947; 88305; J2003; J2704

== ENCOUNTER → 2025-01-23 07:59 | Outpatient (BNV) | payer MEDICARE, OTHER, SELFPAY | PROVIDERS: PCP Internal Medicine; Visit Provider Internal Medicine Gastroenterology | DX: Z12.11 Encounter for screening for malignant neoplasm of colon (principal); D12.3 Benign neoplasm of transverse colon; K57.30 Diverticulosis of large intestine without perforation or abscess without bleeding; K64.0 First degree hemorrhoids | CPT/HCPCS: 45385 ==

== ENCOUNTER 2025-02-01 08:02 | Outpatient (AMB) | payer MEDICARE, OTHER, SELFPAY ==
--- NOTE | 2025-02-01 08:02 | A.OFFVIS_ITS ---
Vital Signs 02/01/25 08:03 Height 5 ft 4 in Weight 200 lb BMI 34.3 BP 162/90 H Intake Visit Reasons: PMB Gift Basket Packer Required: No Information Interpreted: non-clinical & clinical Director Child Abuse Therapy: Director Child Abuse Therapy Present (Melania QUIROS) Accompanied by: Self / Same As Patient Allergies hydrocodone [From VICODIN] Allergy (Unknown, Verified 02/01/25 08:03) HEADACHE oxycodone [OXYCODONE] Allergy (Unknown, Verified 02/01/25 08:03) HIVES procaine [From NOVOCAIN] Allergy (Unknown, Verified 02/01/25 08:03) FAINTED Post menopausal: Yes HPI Comments Details: Presenting with few months' history of vaginal spotting daily PFSH Medical History Incontinence Hx of esophageal ulcer (~04/2024) Dysphagia Hypoglycemia unawareness associated with type 2 diabetes mellitus Hyperlipidemia associated with type 2 diabetes mellitus Obesity Post-menopausal Screening for breast cancer Dizziness Pre-op exam Hiatal hernia (~04/2024) IDDM (insulin dependent diabetes mellitus) Pre-op exam Diabetic polyneuropathy associated with type 2 diabetes mellitus Obesity (BMI 30-39.9) Hypertension Hypothyroidism 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 Diabetes type 2, uncontrolled Surgical History History of abdominal paracentesis History of esophagogastroduodenoscopy (EGD) History of colonoscopy History of repair of hiatal hernia History of cardiac catheterization Hx of hammer toe correction Hx of shoulder surgery Hx of tonsillectomy Hx laparoscopic cholecystectomy Hx of appendectomy Family History Brother Diabetes Father Lung cancer Mother HTN (hypertension) Social History Household Members: Family Housing: House Are you a primary clinical care leader to a significant other at home: No Do you presently have visiting nurse or other home services: No Alcohol intake: current Alcohol intake frequency: holidays/special occasions only Patient Tobacco Use Status: Former Tobacco user Tobacco use type: Cigarette Years Smoked: 20 e-Cigarette/Vaping Use: Never Used Second Hand Smoke Exposure: Yes service: No Current occupational status: retired Cognitive needs: No Hearing needs: No Vision needs: Yes (Glasses) Review of Systems Const All systems reviewed & are unremarkable except as noted in HPI and below Physical Exam Vital Signs: Last Vital Signs BP 162/90 H 02/01/25 08:03 BMI result Body Mass Index 34.3 General: Yes no CVA tenderness External Female Exam: normal external appearance and normal appearance of the urethra Speculum Exam - Vagina: normal appearance of the vagina, normal palpation, no lesions and no masses Speculum Exam - Cervix: normal appearance of the cervix, normal palpation, no lesions, no masses and nontender Bimanual exam- vagina & uterus: normal bimanual exam, normal palpation, uterine size normal, normal palpation, uterine shape normal, No Cervical tenderness present and non-tender Bimanual Exam- Adnexa, other: normal adnexae Back/Spine/Pelvis Back: no CVA tenderness Assessment & Plan Assessment & Plan (1) Postmenopausal bleeding: Code(s): N95.0 - Postmenopausal bleeding Category: Medical Plan: Discussed with the patient the differential diagnosis of post menopausal bleeding with normal pelvic exam including but not limited to, endometrial hyperplasia, cancer, polyps and other causes; co testing done, recommended ultrasound to measure the endometrial stripe; discussed with the patient that if the endometrial thickness is 4 mm or less the negative predictive value of endometrial pathology is 99%, otherwise If endometrial thickness is more than 4 mm will proceed with endometrial sampling versus hysteroscopy D&C polypectomy depending on the ultrasound findings. Instructed the patient to schedule an ultrasound with a follow-up appointment in 2 weeks. All questions answered, the patient verbalized understanding and agreed with the plan. This note was generated with a voice recognition program. Some errors may have been overlooked during the review of this note. Sometimes these errors may affect the content or meaning of a given sentence. Orders: Orders US pelvic and transvaginal Today N95.0 - Postmenopausal bleeding Coding Level of Care Code New Pt Level 3 (88979) Diagnoses Postmenopausal bleeding N95.0
[2025-02-01 08:03] VITALS: BP 162/90; BMI 34.3
--- OUTSIDE RECORDS SUMMARY | 2025-02-01 08:06 | XMS_ITS ---
[facility] Address [address] [place], [place] [address] Care Team Providers Care Finish Repairer Name Role Phone Buddy Morrow MD Primary Care Provider Benjamin Skelton Unavailable [phone] Allergies Allergen (clinical drug ingredient) Drug/Non Drug Allergy documented on EMR Reaction Allergy Type Onset Date Status Novocain pass out Drug Allergy Active Oxycodone HCl hives Drug Allergy Act gila [...] Ordered Date Performed Result Body Sit e 73090-IAOMJBV NAIL, 6 OR MORE 06/26/2024 N/A 25791-IWFR SKIN LESIONS, OVER 4 06/26/2024 N/A Encounters Encounter Location Date Provider Diagnosis [facility] [place] [address] [place] [address] 06/26/2024 Benjamin Landeros Type 1 diabetes mellitus [...] INSTRUCTIONS.pdf) Pending Test Test Name Order Date [id number] NAIL, 6 OR MORE 06/26/2024 54084-MFZI SKIN LESIONS, OVER 4 06/26/20 Next Appt Details Follow Up: prn, Reason: Provider Name:Benjamin Landeros , 04/23/2025 01:30:00 PM, [address] [place], [address], Procedure Notes * Category Sub-Category Detail Notes [...] as necessary. Patient chooses, no pharmaceutical tx (12270) Keratoma Treatment Parring or Cutting o f Benign Hyperkeratotic Lesion(s) 22412 ( >4 Lesions) - The Benign hyperkeratotic lesions, as described above were pared, and/or cut utilizing a sterile #15 blade, tissue nippers, and/or dremel Progress Notes * Miriam NOGUEIRA JDOB: (73 yo F)Acc No.[id number]:06/26/2024 Progress Note Patient:?Taotonysanjuanita Tammie yonathan Ed Provider:?Benjamin Landeros DPM :1950???Age:73 Y???Sex:Female D ate:06/26/2024 Address:[facility] [address], [id number] Pcp:Buddy Morrow MD Subjective: * Chief Complaints: [...] ?Marital status: . 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 * Medications:?TakingPantopraz ole Sodium 40 MG Tablet [...] exacerbate patients foot/toe deformity.?Ophthalmology Referral: ?DIABETES EYE EXAM?Diabetic Retinopathy Screening:?Yes ?Findings of Diabetic Eye Exam:?no retinopathy?General Examination: ?GENERAL APPEARANCE:?Reveals a pleasant, alert, well nourished, well developed, well hydrated individual, who demonstrates proper attention to hygiene/body habitus, and is in no acute distress , Pt serves as own historian for office visit today.?ORIENTED:?person, place, and time.?FOOT EXAM:?Lower Extremity Neurological Exam performed:?Yes ?Footwear Evaluation?Footwear Evaluation performed:?Yes??? Assessment: * Assessment: 1.?Type 1 diabetes mellitus with diabetic polyneuropathy - E10.42?2.?Tinea unguium - B35.1?3.?Other hammer toe(s) (acquired), right foot - M20.41 (Primary), Chronic problem, Worse (4),Rx Management (4)?4.?Other hammer toe(s) (acquired), left foot - M20.42, Chronic problem, Worse (4),Rx Management (4)? Plan: * Treatment: 2.?Type 1 diabetes mellitus with diabetic polyneuropathy?Procedure: 49346-MVWDCKV NAIL, 6 OR MORE ?Procedure: 69501-UUWN SKIN LESIONS, OVER 4 * Procedures:?Debride Nail 6-10:?Nail debridement?Nail debridement performed extensively to reduce/remove overall nail length, girth, thickness, subungual debris, and necrotic tissue, by manual and electrical means through the use of a nail nipper and/or dremel, to more viable healthy nail plate or bed tissue 1-5. Silver nitrate used for any petechial bleeding as necessary. Patient chooses, no pharmaceutical tx (41518).?Keratoma Treatment:?Parring or Cutting of Benign Hyperkeratotic Lesion(s)?27702 ( >4 Lesions) - The Benign hyperkeratotic lesions, as described above were pared, and/or cut utilizing a sterile #15 blade, tissue nippers, and/or dremel.? * Procedure Codes:?54936 DEBRI DE NAIL, 6 OR MORE, Modifiers: XS 26718 TRIM SKIN LESIONS, OVER 4, Modifiers: XS [...] Provider:?Benjamin Landeros DPM Date:?2023 Generated for Stephanie smith/Jareth/Elitting on:?02/01/2025 08:06 AM EST History and Physical Notes * [...]
--- OUTSIDE RECORDS SUMMARY | 2025-02-01 08:06 | XMS_ITS ---
Author Organization [facility] Address [address] [facility] [place], [place] [address] Care Team Providers Care Tunnel Kiln Firer Name Role Phone Buddy Morrow MD Primary Care Provider Benjamin Skelton Unavailable [phone] Allergies Allergen (clinical drug ingredient) Drug/Non Drug [...] Ordered Date Performed Result Body Sit e 17334-[id number] NAIL, 6 OR MORE 10/09/2024 N/A 35410-MUZC SKIN LESIONS, OVER 4 10/09/2024 N/A Encounters Encounter Location Date Provider Diagnosis [facility] [address] [address] 10/09/2024 Benjamin Landeros Type 1 diabetes mellitus with diabetic polyneuropathy E10.42 and Tinea unguium B35.1 Assessments Encounter Date Diagnosis (ICD Code) Assessment Notes Treatment Notes Treatment Clinical Notes Section Notes 10/09/2024 Type 1 diabetes mellitus with diabetic polyneuropathy (ICD-10 - E10.42) 10/09/2024 Tinea unguium (ICD-10 - B35.1) 10/09/2024 Other Plan Of Treatment Pending Test Test Name Order Date [id number] NAIL, 6 OR MORE 10/09/2024 92277-VQRM SKIN LESIONS, OVER 4 10/09/20 24 Next Appt Details Follow Up: prn, Reason: Provider Name:Benjamin Landeros , 04/23/2025 01:30:00 PM, [address] [place] [address], [phone], Procedure Notes * Category Sub-Category Detail Notes [...] use of a nail nipper and/or dremel-type metal grinder, to a more viable healthy nail plate or bed tissue 6-10. Silver nitrate used for any petechial bleeding as necessary. Definitive antifungal treatment options have been reviewed and discussed with the patient. The patient chooses, no pharmaceutical tx - 27785 Keratoma Treatment Parring or Cutting o f Benign Hyperkeratotic Lesion(s) (-57) More than 4 Lesions - The Benign hyperkeratotic lesions, as described in exam, were pared, and/or cut utilizing a sterile 15 blade, tissue nippers, and/or dremel - 81896 Progress Notes * Miriam NOGUEIRA JDOB: (74 yo F)Acc No.[id number]:10/09/2024 Progress Note Patient:?ROLANDOODILIA Tammie yonathan Ward Provider:?Benjamin Landeros DPM :1950???Age:74 Y???Sex:Female D ate:10/09/2024 Address:[facility] [address], [facility] Pcp:Buddy Morrow MD Subjective: * Chief Complaints: [...] ?Marital status: . 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 * Medications:?TakingPantopraz ole Sodium 40 MG Tablet [...] use of a nail nipper and/or dremel-type metal grinder, to a more viable healthy nail plate or bed tissue 6-10. Silver nitrate used for any petechial bleeding as necessary. Definitive antifungal treatment options have been reviewed and discussed with the patient. The patient chooses, no pharmaceutical tx - 79324.?Keratoma Treatment:?Parring or Cutting of Benign Hyperkeratotic Lesion(s)?(-57) More than 4 Lesions - The Benign hyperkeratotic lesions, as described in exam, were pared, and/or cut utilizing a sterile 15 blade, tissue nippers, and/or dremel - 39835.? * Procedure Codes:?93820 DEBRI DE NAIL, 6 OR MORE, Modifiers: XS 41011 TRIM SKIN LESIONS, OVER 4, Modifiers: XS * Follow Up:?prn * Images: * Sign off status: Completed true * Provider:?Benjamin Landeros DPM Date:?2023 Generated for Stephanie smith/Jareth/Ania on:?02/01/2025 08:06 AM EST History and Physical [...]
--- OUTSIDE RECORDS SUMMARY | 2025-02-01 08:06 | XMS_ITS | Clinical Summary ---
[facility] Organization [facility] Address [address] [place] [address] Care Team Providers Care Civil Division Commander Deputy Sheriff Name Role Phone Buddy Morrow MD Primary Care Provider [phone] Surgical History Surgery Date Site/Laterality Comments CHOLECYSTECTOMY 1970 PROCEDURE: HISTORICAL CHOLECYSTECTOMY APPENDECTOMY 1973 PROCEDURE: HISTORICAL APPENDECTOMY TONSILLECTOMY PROCEDURE: HISTORICAL TONSILLECTOMY OTHER SURGICAL HISTORY 05/17/2024 N/A PROCEDURE: TN LAPS RPR PARAESPHGL HRNA INCL FUNDPLSTY W/MESH Medical History Medical History Date Comments Coronary atherosclerosis of unspecified type of vessel, siletz tribe or graft 07/25/2012 DX:Coronary atherosclerosis of unspecified type of vessel, siletz tribe or graft HTN (hypertension) 07/25/2012 DX:HTN (hyper tension) Historical Medical DX 07/25/2012 DX:Hyperli pidemia LDL goal < 70 DM2 (diabetes mellitus, type 2) ([facility] 07/25/2012 DX:DM2 (diabetes mellitus, t ype 2) ([facility]) Hypothyroid 07/25/2012 DX:Hypothyroid Social History Tobacco Use Types Packs/Day Years Used Date Smoking Tobacco: Former Alcohol Use Standard Drinks/Week Comments Not Asked 0 (1 standard drink = 0.6 oz pur e alcohol) Comments Unknown Sex and Gender Information Value Date Recorded Sex Assigned at Not on file Legal Sex Female 1:20 PM EST Gender Identity Not on file Sexual Orientation [...] DTaP,Tdap,and Td Vaccines (1 - Tdap) 1967 Pneumococcal Vaccine: 50+ Ye ars (1 of 1 - PCV) 1998 Zoster Vaccines (1 of 2) 1998 RSV Immunization Patients 60 + Years Old [...] patient's age to complete this topic Meningococcal B Vacine Aged Out No lo nger eligible based on patient's age to complete this topic RSV Immunization Patients Un huma 20 months Aged Out No longer eligible b ased on patient's age to complete this topic Varicella Vaccines Aged Out No longer eligible based on patient's age to complete this topic Care Teams Civil Division Commander Deputy Sheriff Relationship Specialty Start Date End Date Buddy Morrow MD [address] [place] [address] [address] [place] [address] PCP - General Internal Medicine 07/25/12
--- OUTSIDE RECORDS SUMMARY | 2025-02-01 08:06 | XMS_ITS | Encounter Summary ---
Author Organization [facility] Address [address] [place] [address] Care Team Providers Care Cylinder Machine Operator Pulp Drier Name Role Phone Buddy Morrow Primary Care Provider Unavailabl e Linda Melgar SHAREMILKER Unavailable Unavailable Nancy Lopez MD Unavailable Slava Hernández PA-C Unavailable [phone] Encounter Details Date Type Department Care Team Description 02/16/2018 Release of Information Medical Records [address] [place] [id number] Abstract, Provider Social History Tobacco Use Types Packs/Day Years Used Date Smoking Tobacco: Former Alcohol Use Standard Drinks/Week Comments Not Asked 0 (1 standard drink = 0.6 oz pur e alcohol) Sex Assigned at Date Recorded Not on file documented as of this encounter Plan of Treatment Not on file documented as of this encounter Visit Diagnoses Not on filedocumented in this encounter Care Teams Cylinder Machine Operator Pulp Drier Relationship Specialty Start Date End Date Buddy Morrow PCP - General Internal Medicine 07/25/12 Linda Melgar, SHAREMILKER Specialist Gastroenterology 04/18/24 Nancy Lopez MD Specialist Thoracic Surgery 04/18/24 Slava Hernández PA-C [address] [place] [phone] Specialist Thoracic Surgery 05/30/24 documented as of this encounter
--- OUTSIDE RECORDS SUMMARY | 2025-02-01 08:06 | XMS_ITS | Encounter Summary ---
Author Organization [facility] Address [address] [place] [address] Care Team Providers Care Production Repairer Name Role Phone Buddy Morrow Primary Care Provider Unavailabl e Linda Melgar A OPERATOR Unavailable Unavailable Nancy Lopez MD Unavailable Slava Hernández PA-C Unavailable [phone] Encounter Details Date Type Department Care Team Description 04/16/2022 Transfer Records Medical Records [address] [place] [id number] Abstract, Provider Social History Tobacco Use Types [...] on filedocumented in this encounter Care Teams Production Repairer Relationship Specialty Start Date End Date Buddy Morrow PCP - General Internal Medicine 07/25/12 Linda Melgar, A OPERATOR Specialist Gastroenterology 04/18/24 Nancy Lopez MD Specialist Thoracic Surgery 04/18/24 Slava Hernández PA-C [address] [place] [phone] Specialist Thoracic Surgery 05/30/24 documented as of this encounter
--- OUTSIDE RECORDS SUMMARY | 2025-02-01 08:06 | XMS_ITS | Encounter Summary ---
Author Organization [facility] Address [address] [place] [address] Care Team Providers Care Resident Surgeon Name Role Phone Buddy Morrow Primary Care Provider Unavailabl e Linda Melgar WAYBILL CLERK Unavailable Unavailable Nancy Lopez MD Unavailable Slava Hernández PA-C Unavailable [phone] Encounter Details Date Type Department Care Team Description 01/04/2024 Hospital Medical Records [address] [place] [id number] Destin Villalba MD Social History Tobacco Use Types Packs/Day Years Used Date Smoking Tobacco: Former Alcohol Use Standard Drinks/Week Comments Not Asked 0 (1 standard drink = 0.6 oz pur e alcohol) Sex Assigned at Date Recorded Not on file documented as of this encounter Plan of Treatment Not on file documented as of this encounter Visit Diagnoses Not on filedocumented in this encounter Care Teams Resident Surgeon Relationship Specialty Start Date End Date Buddy Morrow PCP - General Internal Medicine 07/25/12 Linda Melgar WAYBILL CLERK Specialist Gastroenterology 04/18/24 Nancy Lopez MD Specialist Thoracic Surgery 04/18/24 Slava Hernández PA-C [address] [place] [phone] Specialist Thoracic Surgery 05/30/24 documented as of this encounter
--- OUTSIDE RECORDS SUMMARY | 2025-02-01 08:06 | XMS_ITS | Encounter Summary ---
Author Organization [facility] Address [address] [place] [address] Care Team Providers Care Marketing Director Name Role Phone Buddy Morrow Primary Care Provider Unavailabl e Linda Melgar PROPERTY INSPECTOR Unavailable Unavailable Nancy Lopez MD Unavailable Slava Hernández PA-C Unavailable [phone] Encounter Details Date Type Department Care Team Description 04/13/2024 [facility] Thoracic Surgery [address] [phone] Nancy Lopez MD [address] [id number] Social History Tobacco Use Types Packs/Day Years Used Date Smoking Tobacco: Former Alcohol Use Standard Drinks/Week Comments Not Asked 0 (1 standard drink = 0.6 oz pur e alcohol) Sex Assigned at Date Recorded Not on file documented as of this encounter Plan of Treatment Not on file documented as of this encounter Visit Diagnoses Not on filedocumented in this encounter Care Teams Marketing Director Relationship Specialty Start Date End Date Buddy Morrow PCP - General Internal Medicine 07/25/12 Linda Melgar, PROPERTY INSPECTOR Specialist Gastroenterology 04/18/24 Nancy Lopez MD Specialist Thoracic Surgery 04/18/24 Slava Hernández PA-C [address] [phone] Specialist Thoracic Surgery 05/30/24 documented as of this encounter
--- OUTSIDE RECORDS SUMMARY | 2025-02-01 08:06 | XMS_ITS ---
Author Organization [facility] Address [address] [place], [place] [address] Care Team Providers Care Library Director Name Role Phone Buddy Morrow MD Primary Care Provider Benjamin Skelton Unavailable [phone] Allergies Allergen (clinical drug ingredient) Drug/Non Drug Allergy documented on EMR Reaction Allergy Type Onset Date Status Novocain pass out Drug Allergy Active oxycodone Oxycodone HCl hives Drug Allergy Act gila Vicodin headache Drug Allergy Active REASON FOR VISIT At Risk Footcare, Toe Irritation Medications Medication SIG (Take, Route, Frequency, Duration) Notes Start Date End Date Status Lantus 25 units Subcutaneous Not-Taking Lisinopril 10 MG 1 tablet Orally Once a day for 30 day(s) Not-Taking Extra Depth Orthopedic Shoes (1 Pair) with Customized Heat Molded Multidensity Innersoles (3 Pair) as directed Dx: IDDM/Polyneuropathy (E10.42), Hammertoe Foot Deformity (M20.41,M20.42), Preulcerative Skin Lesion(s) (L85.1) 06/26/2024 Active Omeprazole Not-Takin g Jardiance Not-Taking Naproxen 500mg prn PRN Activ e Turmeric Curcumin Ac tive Vitamin D3 Active Niacin Active Simvastatin 40mg daily Act gila Levothyroxine Sodium 150 MCG 0.5 tablet every morning on an empty stomach Orally Once a day Active Lopressor Active Metoprolol Tartrate 50mg 1x a day Active Metoclopramide HCl PRN A ctive metFORMIN HCl Active Cinnamon Active Fish Oil Active Gabapentin Active Lasix PRN Active Bydureon Active Amitriptyline HCl 25mg daily Active Aspirin 81mg Active Pantoprazole Sodium 40 MG 1 tablet Orally Once a day Active Senokot Active Social History Tobacco Use: Social History Observation Description Date Details (start date - stop date) Never Smoker NA - NA Tobacco use other than smoking: Question Answer Notes Are you an other tobacco user? No Tobacco Control (Standard) Question Answer Notes Tobacco use: Nonsmoker Additional Findings: Tobacco non-user Current no nsmoker AUDIT-C (Standard) Question Answer Notes Did you have a drink containing alcohol in the p ast year? No Points 0 Interpretation Negative Vital Signs Height 5ft4in in 01/15/2025 Weight 200 lbs 01/15/2025 BMI 34.33 kg/m2 01/15/2025 Blood pressure systolic 103 mm Hg 01/15/20 25 Blood pressure diastolic 70 mm Hg 025 Procedures Procedure Date Ordered Date Performed Result Body Sit e 18229-GDETIRB NAIL, 6 OR MORE 01/15/2025 N/A 41051-OVVZ SKIN LESIONS, OVER 4 01/15/2025 N/A Encounters Encounter Location Date Provider Diagnosis [facility] [address] [address] 01/15/2025 Benjamin Landeros Type 1 diabetes mellitus with diabetic polyneuropathy E10.42 ; Other hammer toe(s) (acquired), right foot M20.41 ; Tinea unguium B35.1 and Other hammer toe(s) (acquired), left foot M20.42 Assessments Encounter Date Diagnosis (ICD Code) Assessment Notes Treatment Notes Treatment Clinical Notes Section Notes 01/15/2025 Type 1 diabetes mellitus with diabetic polyneuropathy (ICD-10 - E10.42) 01/15/2025 Other hammer toe(s) (acquired), right foot (ICD-10 - M20.41) Patient Educated with: DIABETIC FOOT CARE INSTRUCTIONS. pdf (DIABETIC FOOT CARE INSTRUCTIONS. pdf) 01/15/2025 Tinea unguium (ICD-10 - B35.1) 01/15/2025 Other hammer toe(s) (acquired), left foot (ICD-10 - M20.42) Plan Of Treatment Treatment Notes Assessment Notes Other hammer toe(s) (acquired), right fo ot Patient Educated with: DIABETIC FOOT CARE INSTRUCTIONS.pdf (DIABETIC FOOT CARE INSTRUCTIONS.pdf) Pending Test Test Name Order Date [id number]-[id number] NAIL, 6 OR MORE 01/15/2025 59031-SUBN SKIN LESIONS, OVER 4 01/15/20 25 Next Appt Details Follow Up: prn, Reason: Provider Name:Benjamin Landeros , 04/23/2025 01:30:00 PM, [address] [place], [address], Procedure Notes * Category Sub-Category Detail Notes Debride Nail 6-10 Nail debridement Due to the cl inical pathology outlined in the exam findings, performance of this nail treatment is medically necessary as its management by an unskilled/untrained nonprofessional would put this patients foot and overall health at risk. Therefore, debridement to affected nail(s), as described in exam ( TA, T1, T3, T4, T5, T6, T8, T9 ), was performed exclusively by the physician of record to reduce/remove overall nail length, girth, thickness, subungual debris, and necrotic tissue, by manual and/or electrical means through the use of a nail nipper and/or dremel-type internal grinder, to a more viable healthy nail plate or bed tissue 6-10 nails in total. Silver nitrate was used for any petechial bleeding as necessary. Definitive antifungal treatment options, both pharmaceutical and surgical, have been reviewed and discussed with the patient. The patient solely prefers the use of intermittent/as needed professional debridement services for their nail condition and understands the need for additional periodic treatments to maintain effectiveness in symptomatic relief - 07506 Keratoma Treatment Parring or Cutting o f Benign Hyperkeratotic Lesion(s) (-57) More than 4 Lesions - Due to the at risk nature of the patients medical condition as documented in the exam findings, performance of this keratoderma treatment is medically necessary as its management by an unskilled/untrained nonprofessional would put this patients foot and overall health at risk. Therefore, the benign hyperkeratotic lesions, ( 10 ) in total, locations as stated and described in the exam ( Medial, IPJ, TA, Medial, IPJ, T5, SUB MTH (s), 1, Left , SUB MET (s), 2, B/L , SUB MTH (s), 3, B/L , SUB MTH (s), 5, Right , Plantar, Heel, Left ), were pared, and/or cut utilizing a sterile 15 blade, tissue nippers, and/or power dremel instrumentation by the physician of record - 42067 Progress Notes * Miriam NOGUEIRA JDOB: (74 yo F)Acc No.[id number]:01/15/2025 Progress Note Patient:Tammie GREEN Provider:?Benjamin Landeros DPM :1950???Age:74 Y???Sex:Female D ate:01/15/2025 Address:[facility] [address], [facility] Pcp:Buddy Morrow MD Subjective: * Chief Complaints: * ???At Risk FootcareToe Irrit ation * HPI: ???At Risk footcare:?Pt States Last PCP Visit:?Date?12/18/2024 ???Toe pain:?Location:?B/L feet.?Duration:?several years.?Course:?worse.?Aggravated by:?shoes, any pressure.?Treatments:?change in shoes.? * ROS:?General/Constitutional:?Nausea?denies.?Vomiting?denies.?Hunger Thirst?denies.?Loss appetite?denies.?Chills?denies.?Fatigue?denies.?Fever?denies.?Night Sweats?denies.?Unexplained weight loss?denies.?Ophthalmologic:?Blurred vision?denies.?Red eye?denies.?HEENTM:?Dentures?denies.?Dizziness?denies.?Glasses/contacts? admits.?Retinopathy?denies.?Blurred/double vision?denies.?TMJ?denies.?Discharge/drainage?denies.?Implants?denies.?Hard of hearing denies.?Difficulty chewing/swallowing/speaking?denies.?Nose bleeds?denies.?Sore mouth?denies.?Swollen glands?denies.?Respiratory:?On O xygen?denies.?Pneumonia/pleurisy?denies.?Bronchitis?denies.?Emphysema?denies.?Co ughing?denies.?Cough blood?denies.?Shortness of breath?denies.?Wheezing?denies.?Cardiovascular:?Pacemaker?denies.?MVP?denies.?WPW?denies.?CHF?denies.?Heart attack?denies.?Septal defect?denies.?Rapid beat?denies.?Chest pain ?denies.?Atrial Fib.?denies.?Murmur/Palpitations?denies.?Gastrointestinal:?Hemorrhoids?denies.?Stomach/Abdominal pain?denies.?Dark blood stool?denies.?Irritable bowel ?denies.?Constipation?denies.?Diarrhea?denies.?Vomiting?denies.?Hematology:?Swelling?admits.?Bruising??admits, on aspirin.?Bleeding problem??admits, on anticoagulants.?Genitourinary:?Blood urine?denies.?Frequent/Painfu/urination/bladder control?denies.?Kidney stones?denies.?Infection (UTI)?denies.?Nephropathy?denies.?Musculoskeletal:?Hammertoes?admits.?Bunions?denies.?Scoliosis/kyphosis?denies.?Muscle cramps / walking?denies.?Generalized aches and pains?denies.?Weakness?denies.?Integ.:?Logan?denies.?Scars?denies.?Corns/calluses?admits.?Ingrown nails?admits.?Painful nails?denies.?Rashes?denies.?Neurologic:?Difficulty sleeping?denies.?Bipolar?denies.?Brain disorder?denies.?Balance t rouble?denies.?Confusion?denies.?Fainting/blackouts?denies.?Headache?denies.?Jeremiah mors?denies.? * Medical History:? * Surgical History:?appendecto my 1976cholecystectomy 1970foot surgery hammertoes bilateral feet 1990tonsillectomy 1993cataract surgery OD 06/18/2013retinal surgery OD 07/04/2013rotator cuff tear repair 04/26/2019hiatal hernia repair 5Cataract surgery 04/30/24Esophageal recon 2023 * Hospitalization/Major Diagno [...] daughter(s) . .? * Social History:?Tobacco Use:?Tobacco use other than smoking?Are you an other tobacco user??No ?Tobacco Control (Standard)?Tobacco use:?Nonsmoker ?Additional Findings: Tobacco non-user?Current nonsmoker ???Drugs/Alcohol:?Drugs?Have you used drugs other than those for medical reasons in the past 12 months??No ???Miscellaneous:?Caffeine: no. ?Children: yes. ?Exercise: yes, walking, 2-3 times per week. ?Marital status: . 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 ???Drug/Alcohol:?AUDIT-C (Standard)?Did you have a drink containing alcohol in the past year??No ?Points?0 ?Interpretation?Negative * Medications:?TakingPantopraz ole Sodium 40 MG Tablet [...] pass outyes[Allergies Verified] Objective: * Vitals:?Ht: 5ft4in, Wt:200, BMI: 34.33, Shoe size:9.5W, BP:103/70mm Hg, BS:180, Ht-cm: 162.56 cm, Wt-k.72 kg. * ???Past Orders: ???Lab:HEMOGLOBIN A1C (GLYCO HEMOGLOBIN) (Order Date - 12/18/2024) (Collection Date & Time - 01/15/2025 01:48 PM) ? Value Reference Range ?HEMOGLOBIN A1C % (HH) 7.2 * Examination: ???Ophthalmology Referral: ?DIABETES EYE EXAM?Procedure Performed:?Yes ?Date of Exam Performed?04/30/2024 ?Diabetic Retinopathy Screening:?Yes ?Retinal Screening Performed:?Yes ?Findings of Diabetic Eye Exam:?no retinopathy?Neurological: ?SENSORY:?Neurological exam demonstrates, reduced light touch sensation, [...] T1, T3, T4, T5, T6, T8, T9, all other nails not described with characteristics as possessing mycosis are elongated, overgrown, and dystrophic.?Dermatologic: ?SKIN FINDINGS:?Skin exam reveals Keratotic lesion(s) located at, Medial, IPJ, TA, Medial, IPJ, T5, SUB MTH (s), 1, Left , SUB MET (s), 2, B/L , SUB MTH (s), 3, B/L , SUB MTH (s), 5, Right , Plantar, Heel, Left .?Vascular: ?DP PULSES (B):?01/01, B/L.?PT PULSES (B):?01/01, B/L.?CAPILLARY FILL TIME:?3 secs. per digit, B/L.?TROPHIC CONDITION-TEXTURE/ELASTICITY/TURGOR/HAIR GROWTH (B):?normal, B/L.?TEMPERTURE GRADIENT (C):?warm to cool, proximal to distal, B/L.?PIGMENTATION:?normal, B/L.?EDEMA (C):?/, B/L, non-pitting, without aching pain, Ankle(s).?VARICOSITIES:?present, moderate, nonpainful, B/L.?Orthopedic: ?MUSCLE STRENGTH:?5/5 all groups in a symmetrical [...] , shoe gear properties exacerbate patients foot/toe deformity.?General Examination: ?GENERAL APPEARANCE:?Reveals a pleasant, alert, well nourished, well developed, well hydrated individual, who demonstrates proper attention to hygiene/body habitus, and is in no acute distress , Pt serves as own historian for office visit today.?ORIENTED:?person, place, and time.?FOOT EXAM:?Lower Extremity Neurological Exam performed:?Yes ?Visual exam of foot performed:?Yes ?Date?01/15/2025 ?Footwear Evaluation?Footwear Evaluation performed:?Yes??? Assessment: * Assessment: 1.?Other hammer toe(s) (acqu ired), right foot - M20.41 (Primary)???Specify :Chronic problem, Worse (4)???2.?Type 1 diabetes mellitus with diabetic polyneuropathy - E10.42???3.?Tinea unguium - B35.1???4.?Other hammer toe(s) (acquired), left foot - M20.42???Specify :Chronic problem, Worse (4)??? Plan: * Treatment: 2.?Type 1 diabetes mellitus with diabetic polyneuropathy?Procedure: 29048-ABGVWBX NAIL, 6 OR MORE ?Procedure: 20372-XDON SKIN LESIONS, OVER 4 * Procedures:?Debride Nail 6-10:?Nail debridement?Due to the clinical pathology outlined in the exam findings, performance of this nail treatment is medically necessary as its management by an unskilled/untrained nonprofessional would put this patients foot and overall health at risk. Therefore, debridement to affected nail(s), as described in exam (?TA,?T1,?T3,?T4,?T5,?T6,?T8,?T9?), was performed exclusively by the physician of record to reduce/remove overall nail length, girth, thickness, subungual debris, and necrotic tissue, by manual and/or electrical means through the use of a nail nipper and/or dremel-type internal grinder, to a more viable healthy nail plate or bed tissue 6- 10 nails in total. Silver nitrate was used for any petechial bleeding as necessary. Definitive antifungal treatment options, both pharmaceutical and surgical, have been reviewed and discussed with the patient. The patient solely prefers the use of intermittent/as needed professional debridement services for their nail condition and understands the need for additional periodic treatments to maintain effectiveness in symptomatic relief - 73506.?Keratoma Treatment:?Parring or Cutting of Benign Hyperkeratotic Lesion(s)?(-57) More than 4 Lesions - Due to the at risk nature of the patients medical condition as documented in the exam findings, performance of this keratoderma treatment is medically necessary as its management by an unskilled/untrained nonprofessional would put this patients foot and overall health at risk. Therefore, the benign hyperkeratotic lesions, ( 10 ) in total, locations as stated and described in the exam (?Medial,?IPJ,?TA,?Medial,?IPJ,?T5,?SUB MTH (s),?1,?Left?,?SUB MET (s),?2,?B/L?,?SUB MTH (s),?3,?B/L?,?SUB MTH (s),?5,?Right?,?Plantar,?Heel,?Left?), were pared, and/or cut utilizing a sterile 15 blade, tissue nippers, and/or power dremel instrumentation by the physician of record - [id number].? * Procedure Codes:?22111 DEBRI DE NAIL, 6 OR MORE, Modifiers: XS [id number] TRIM SKIN LESIONS, OVER 4, Modifiers: XS * Preventive Medicine:? ??Counseling:?Discussion:?-13: Office or other outpatient visit for the evaluation and management of an established patient, which required a medically appropriate history and/or examination and LOW level of DECISION MAKING for: 1 STABLE ACUTE UNCOMPLICATED PROBLEM, 2 OR MORE MINOR PROBLEMS, OR 1 STABLE CHRONIC PROBLEM, THAT POSE(S) A LOW RISK FOR MORBIDITY/MORTALITY. The visit on the day of the [...] confirmed a full understanding of the above information, Patient DEFERS recommended Extra Depth Orthopedic pressure-accommodative shoes against medical advice.? ??Screening/Special Tests:?Fall Risk?Screening:?No falls in the past year ?FALLS: Screening for Future Fall Risk?Have you had any falls with injury in the past year??No * Follow Up:?prn * Images: * Sign off status: Completed true * Provider:?Benjamin Landeros DPM Date:?2024 Generated for Stephanie smith/Jareth/Ania on:?02/01/2025 08:05 AM EST History and Physical Notes * HPI (History of Present Illness) Category Sub-Category Detail Notes Category Not es Toe pain Location: B/L feet Duration: several years Course: worse Aggravated by: shoes, any pressure Treatments: change in shoes At Risk footcare Pt States Last PCP Visit: Date: Examination Category Sub-Category Detail Notes Category Not [...] , SUB MTH (s), 5, Right , Plantar, Heel, Left Orthopedic FOOT MORPHOLOGY: Pes Planus [...] Lower Extremity Neurological Exa m performed:: Yes Visual exam of foot performed:: Yes Date: 01/15/2025 ORIENTED: person, place, and t rani Footwear Evaluation Footwear Evaluation performe d:: Yes Ophthalmology Referral DIABETES EYE EXAM Procedure Perform ed:: Yes ?Date of Exam Performed: 04/30/2024 Diabetic Retinopathy Screening:: Yes Retinal Screening Performed:: Yes Findings of Diabetic Eye Exam:: no retin opathy Vascular DP PULSES (B): 2/4, B/L PT PULSES (B): 2/4, B/L CAPILLARY FILL TIME: 3 secs. per digit, B/L TEMPERTURE GRADIENT (C): warm to cool, p roximal to distal, B/L TROPHIC CONDITION-TEXTURE/ELASTICITY/TURGOR/HAIR GROWTH (B): normal, B/L EDEMA (C): 1/4, B/L, non-pittin g, without aching pain, Ankle(s) VARICOSITIES: present, moderate, n onpainful, B/L PIGMENTATION: normal, B/L Nails NAILS are: Elongated, overg rown, dystrophic, lytic, greater than 3mm thick, discolored and friable with crumbly malodorous subungual debris, TA, T1, T3, T4, T5, T6, T8, T9, all other nails not described with characteristics as possessing mycosis are elongated, overgrown, and dystrophic
--- OUTSIDE RECORDS SUMMARY | 2025-02-01 08:06 | XMS_ITS | Patient Health Record ---
[facility] Address [address] [place] [address] Care Team Providers Care Junior Brand Manager Name Role Phone Buddy Morrow MD Primary Care Provider Benjamin Skelton Unavailable [phone] Allergies Allergen (clinical drug ingredient) Drug/Non Drug Allergy documented on EMR Reaction Allergy Type Onset Date Status Novocain pass out Drug Allergy Active oxycodone Oxycodone HCl hives Drug Allergy Act gila Vicodin headache Drug Allergy Active Results Component Value Reference Range Notes HEMOGLOBIN A1C (GLYCOHEMOGLO BIN) Reviewed date:01/15/2025 01:49:30 PM Interpretation: Performing Lab: Notes/Report: HEMOGLOBIN A1C % (HH) 7.2 HEMOGLOBIN A1C (GLYCOHEMOGLO BIN) Reviewed date:06/26/2024 01:45:50 PM Interpretation: Performing Lab: Notes/Report: HEMOGLOBIN A1C % (HH) 6.9 Reason For Referral No Information Medications Medication SIG (Take, Route, Frequency, Duration) Notes Start Date End Date Status Cinnamon Active Fish Oil Active Levothyroxine Sodium 150 MCG 0.5 tablet every morning on an empty stomach Orally Once a day Active Lopressor Active Gabapentin Active Lasix PRN Active Lantus 25 units Subcutaneous Not-Taking Lisinopril 10 MG 1 tablet Orally Once a day for 30 day(s) Not-Taking Extra Depth Orthopedic Shoes (1 Pair) with Customized Heat Molded Multidensity Innersoles (3 Pair) as directed Dx: IDDM/Polyneuropathy (E10.42), Hammertoe Foot Deformity (M20.41,M20.42), Preulcerative Skin Lesion(s) (L85.1) 06/26/2024 Active Omeprazole Not-Takin g Jardiance Not-Taking Amitriptyline HCl 25mg daily Active Metoprolol Tartrate 50mg 1x a day Active Aspirin 81mg Active Naproxen 500mg prn PRN Activ e Pantoprazole Sodium 40 MG 1 tablet Orally Once a day Active Metoclopramide HCl PRN A ctive Senokot Active metFORMIN HCl Active Turmeric Curcumin Ac tive Vitamin D3 Active Bydureon Active Niacin Active Simvastatin 40mg daily Act gila Immunizations Vaccine Route Administration Date Status Comme [...] ast year? No Points 0 Interpretation Negative Problems Problem Type SNOMED Code ICD Code Onset Dates Problem Status W/U Status Risk Notes Problem Acquired hammer toe of right foot (5480509739142643 ) Other hammer toe(s) (acquired), right foot (M20.41) Active confirmed Response to treatment, Improvemen t Problem Acquired hammer toe of left foot (2854438248661221 ) Other hammer toe(s) (acquired), left foot (M20.42) Active confirmed Response to treatment, Improvemen t Problem Polyneuropathy due to diabetes mellitus type I (340688029) 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 confirmed Vital Signs Blood pressure diastolic 70 mm Hg 01/15/2025 Height 5ft4in in 01/15/2025 Blood pressure systolic 103 mm Hg 01/15/2025 Weight 200 lbs 01/15/2025 BMI 34.33 kg/m2 01/15/2025 Procedures Procedure Date Ordered Date Performed Result Body Sit e 76490-WYHLPQX NAIL, 6 OR MORE 03/27/2024 N/A 08934-MOLR SKIN LESIONS, OVER 4 03/27/2024 N/A 13418-LZXDLPY NAIL, 6 OR MORE 06/26/2024 N/A 40086-XOME SKIN LESIONS, OVER 4 06/26/2024 N/A 74114-ZBSVYVJ NAIL, 6 OR MORE 10/09/2024 N/A 65473-XVQA SKIN LESIONS, OVER 4 10/09/2024 N/A 38674-XBKJCMX NAIL, 6 OR MORE 01/15/2025 N/A 78776-FJLM SKIN LESIONS, OVER 4 01/15/2025 N/A Encounters Encounter Location Date Provider Diagnosis [address] [address] 03/27/2024 Benjamin Leti Type 1 diabetes mellitus with diabetic polyneuropathy E10.42 and Tinea unguium B35.[address] [address] 06/26/2024 Benjamin Leti Type 1 diabetes mellitus with diabetic polyneuropathy E10.42 ; Tinea unguium B35.1 ; Other hammer toe(s) (acquired), right foot M20.41 and Other hammer toe(s) (acquired), left foot M20.[address] [address] 10/09/2024 Benjamin Leti Type 1 diabetes mellitus with diabetic polyneuropathy E10.42 and Tinea unguium B35.[address] [address] 01/15/2025 Benjamin Leti Type 1 diabetes mellitus with diabetic polyneuropathy E10.42 ; Other hammer toe(s) (acquired), right foot M20.41 ; Tinea unguium B35.1 and Other hammer toe(s) (acquired), left foot M20.42 Assessments Encounter Date Diagnosis (ICD Code) Assessment Notes Treatment Notes Treatment Clinical Notes Section Notes 03/27/2024 Type 1 diabetes mellitus with diabetic polyneuropathy (ICD-10 - E10.42) 03/27/2024 Tinea unguium (ICD-10 - B35.1) 10/09/2024 Type 1 diabetes mellitus with diabetic polyneuropathy (ICD-10 - E10.42) 10/09/2024 Tinea unguium (ICD-10 - B35.1) 01/15/2025 Other hammer toe(s) (acquired), right foot (ICD-10 - M20.41) Patient Educated with: DIABETIC FOOT CARE INSTRUCTIONS. pdf (DIABETIC FOOT CARE INSTRUCTIONS. pdf) 06/26/2024 Type 1 diabetes mellitus with diabetic polyneuropathy (ICD-10 - E10.42) 01/15/2025 Type 1 diabetes mellitus with diabetic polyneuropathy (ICD-10 - E10.42) 01/15/2025 Tinea unguium (ICD-10 - B35.1) 06/26/2024 Tinea unguium (ICD-10 - B35.1) 01/15/2025 Other hammer toe(s) (acquired), left foot (ICD-10 - M20.42) 06/26/2024 Other hammer toe(s) (acquired), right foot (ICD-10 - M20.41) Patient Educated with: DIABETIC FOOT CARE INSTRUCTIONS. pdf (DIABETIC FOOT CARE INSTRUCTIONS. pdf) 06/26/2024 Other hammer toe(s) (acquired), left foot (ICD-10 - M20.42) 10/09/2024 Other Plan Of Treatment Pending Test Test Name Order Date Hemoglobin A1c 02/11/2015 Hemoglobin A1c 12/02/2015 Hemoglobin A1c 06/03/2017 26779-RBROMSK NAIL, 6 OR MORE 10/09/2024 38320-PFUVCTD NAIL, 6 OR MORE 01/15/2025 85388-YPIVJTQ NAIL, 6 OR MORE 09/12/2020 39161-VEZLJFE NAIL, 6 OR MORE 12/12/2020 83193-JIEHWAF NAIL, 6 OR MORE 03/13/2021 42575-LWOZRFL NAIL, 6 OR MORE 06/12/2021 26392-DZIKUBG NAIL, 6 OR MORE 09/18/2021 96674-MOYYFYE NAIL, 6 OR MORE 12/18/2021 14397-CHWTCKB NAIL, 6 OR MORE 03/23/2022 45465-XFOJPNE NAIL, 6 OR MORE 06/25/2022 86095-WXQIOYJ NAIL, 6 OR MORE 09/24/2022 13631-XZRPUUX NAIL, 6 OR MORE 12/24/2022 37390-ZLPIQEO NAIL, 6 OR MORE 03/25/2023 65818-CYUCDJU NAIL, 6 OR MORE 06/24/2023 47981-HSBKGUK NAIL, 6 OR MORE 09/27/2023 20440-RVTJXCS NAIL, 6 OR MORE 12/27/2023 86227-GLJBQGZ NAIL, 6 OR MORE 03/27/2024 67859-XVWWKDV NAIL, 6 OR MORE 06/26/2024 17228-NULCTHP NAIL, 6 OR MORE 08/22/2015 28980-MXBJPWC NAIL, 6 OR MORE 05/16/2015 95427-UKWDQOE NAIL, 6 OR MORE 02/11/2015 00146-BBIILVP NAIL, 6 OR MORE 11/02/2013 21200-ZXYZKKZ NAIL, 6 OR MORE 02/01/2014 18289-GDAZBUF NAIL, 6 OR MORE 05/10/2014 89335-HANNUPY NAIL, 6 OR MORE 08/13/2014 54185-SHBFAWZ NAIL, 6 OR MORE 11/12/2014 29885-IYWBRHE NAIL, 6 OR MORE 07/27/2011 76822-SAUUOZD NAIL, 6 OR MORE 10/15/2011 98162-PWLMUOY NAIL, 6 OR MORE 01/14/2012 09366-BUPREZQ NAIL, 6 OR MORE 04/11/2012 90770-CGOFISM NAIL, 6 OR MORE 07/28/2012 91205-URPYNHQ NAIL, 6 OR MORE 10/13/2012 80283-DGUPGEF NAIL, 6 OR MORE 01/12/2013 73659-GEFDLGO NAIL, 6 OR MORE 04/13/2013 77006-WLVOUEX NAIL, 6 OR MORE 08/03/2013 86748-ZANRZEG NAIL, 6 OR MORE 12/02/2015 48437-YEKHMGU NAIL, 6 OR MORE 03/02/2016 43762-PREGSHQ NAIL, 6 OR MORE 06/11/2016 76686-JIMLAAO NAIL, 6 OR MORE 09/10/2016 03989-YZYHKHB NAIL, 6 OR MORE 12/10/2016 95316-HJNXJSW NAIL, 6 OR MORE 03/04/2017 25622-CCPAIIY NAIL, 6 OR MORE 06/07/2017 32299-IZQYOJP NAIL, 6 OR MORE 09/06/2017 01776-WTIDBOD NAIL, 6 OR MORE 12/09/2017 63934-QPCMLNA NAIL, 6 OR MORE 03/10/2018 89109-VPTKVGY NAIL, 6 OR MORE 06/13/2018 63442-FRLRAQQ NAIL, 6 OR MORE 09/12/2018 63803-DBQBJNR NAIL, 6 OR MORE 12/26/2018 96707-RCBVUGM NAIL, 6 OR MORE 03/27/2019 87113-BEEIQME NAIL, 6 OR MORE 06/26/2019 51638-TMABDXA NAIL, 6 OR MORE 09/25/2019 02787-IZXOSCK NAIL, 6 OR MORE 12/25/2019 99464-RVRXBSY NAIL, 6 OR MORE 06/13/2020 91210- Debride <25 sq cm 08/03/2013 53041-PGCY SKIN LESIONS, OVER 4 11/02/20 13 60461-VXLL SKIN LESIONS, OVER 4 11/12/20 14 42636-XGRB SKIN LESIONS, OVER 4 08/13/20 14 43619-AIGG SKIN LESIONS, OVER 4 05/10/20 14 63095-ROZI SKIN LESIONS, OVER 4 02/02/20 14 16906-STGW SKIN LESIONS, OVER 4 02/12/20 15 37364-GLTB SKIN LESIONS, OVER 4 05/16/20 15 46872-XTWG SKIN LESIONS, OVER 4 08/22/20 15 77179-DHTY SKIN LESIONS, OVER 4 12/02/19 16 01670-OAHX SKIN LESIONS, OVER 4 06/13/20 20 26758-BRWH SKIN LESIONS, OVER 4 12/25/19 20 73637-LIBN SKIN LESIONS, OVER 4 09/25/20 19 89512-SUEY SKIN LESIONS, OVER 4 06/26/20 19 14166-BDTR SKIN LESIONS, OVER 4 03/27/20 19 25438-HCMX SKIN LESIONS, OVER 4 12/26/19 19 13715-RGOL SKIN LESIONS, OVER 4 09/12/20 18 04886-DBYG SKIN LESIONS, OVER 4 06/13/20 18 91360-EBXH SKIN LESIONS, OVER 4 03/10/20 18 98130-JYDZ SKIN LESIONS, OVER 4 12/09/19 18 23149-DOGV SKIN LESIONS, OVER 4 09/06/20 17 40499-CRIM SKIN LESIONS, OVER 4 03/04/20 17 01238-BJJU SKIN LESIONS, OVER 4 06/07/20 17 10166-HKED SKIN LESIONS, OVER 4 12/10/19 17 59877-UWDK SKIN LESIONS, OVER 4 09/10/20 16 63221-KQUF SKIN LESIONS, OVER 4 06/11/20 16 06336-JFGN SKIN LESIONS, OVER 4 03/02/20 16 48098-XQCE SKIN LESIONS, OVER 4 06/26/20 24 51695-MOFF SKIN LESIONS, OVER 4 03/27/20 24 86734-PXTL SKIN LESIONS, OVER 4 12/27/19 24 46717-WWMF SKIN LESIONS, OVER 4 09/27/20 23 49704-VXFB SKIN LESIONS, OVER 4 06/24/20 12966-MBMS SKIN LESIONS, OVER 4 03/25/20 79129-KIVC SKIN LESIONS, OVER 4 12/24/19 23 69947-PLOQ SKIN LESIONS, OVER 4 09/24/20 09627-RPZB SKIN LESIONS, OVER 4 06/25/20 22250-UJSA SKIN LESIONS, OVER 4 03/23/20 46983-YOXQ SKIN LESIONS, OVER 4 12/18/19 28091-EIUI SKIN LESIONS, OVER 4 09/18/20 30333-VQSR SKIN LESIONS, OVER 4 06/12/20 94837-BCOP SKIN LESIONS, OVER 4 03/13/20 54123-QWYD SKIN LESIONS, OVER 4 12/12/19 21 89697-XNQL SKIN LESIONS, OVER 4 09/12/20 65936-INHQ SKIN LESIONS, OVER 4 01/15/20 25 22442-ODFV SKIN LESIONS, OVER 4 10/09/20 24 52297-YEHZ SKIN LESIONS, 2 TO 4 07/27/20 11 21051-HKJN SKIN LESIONS, 2 TO 4 04/13/20 13 59138-TIIV SKIN LESIONS, 2 TO 4 01/12/20 13 90886-CDMS SKIN LESIONS, 2 TO 4 10/13/20 12 50045-WJBL SKIN LESIONS, 2 TO 4 07/28/20 12 28528-RXLX SKIN LESIONS, 2 TO 4 04/11/20 12 35153-DBDU SKIN LESIONS, 2 TO 4 01/14/20 12 81017-ABDQ SKIN LESIONS, 2 TO 4 10/15/20 11 HEMOGLOBIN A1C (GLYCOHEMOGLOBIN) 020 Next Appt Details Provider Name:Benjamin Andersen Leti , 04/23/2025 01:30:00 PM, [address] [place] [address], [place], [address], Insurance Providers Payer Name Payer Address Payer Phone Subscriber Number Group Number Insured Name Patient Relationship to Insured Coverage Start Date Coverage End Date [employer] Medicare Adv-[id number] [address] [address] [place] [address] [id number] Miriam Henry Self - patient is the insured [facility] Claims [employer] [address] [address] [place] [address] [id number] Miriam Henry Self - patient is the insured Medical (General) History Medical History History ICD Code hyperlipidemia thyroid disorder mumps measles hypertension headaches/migraines chicken pox cataracts Hiatal hernia Knee Pain type II diabetes Surgical History Surgery Date(Month/Year) appendectomy 1975 cholecystectomy 1970 foot surgery hammertoes bilateral feet 1 990 tonsillectomy 1993 cataract surgery OD 06/18/2013 retinal surgery OD 07/04/2013 rotator cuff tear repair 04/26/2019 hiatal hernia repair Cataract surgery 04/30/24 Esophageal recon 2023 Hospitalization History Reason Date(Month/Year) [facility] virus 11/21/2017 [facility], es[facility] [place] [facility] [place]21 [facility]- Hiatal hernia flare up 05/21/19
== END 2025-02-01 08:24 | disposition home or self-care (01) ==
LOC: HO.HWS 08:02
PROVIDERS: PCP Internal Medicine; Visit Provider Obstetrics & Gynecology
DX: N95.0 Postmenopausal bleeding (principal)
CPT/HCPCS: 99203

== ENCOUNTER 2025-02-01 08:02 | Outpatient (REF) | payer MEDICARE, OTHER, SELFPAY ==
--- OUTSIDE RECORDS SUMMARY | 2025-02-01 09:21 | XMS_ITS | Clinical Summary ---
[facility] Address [address] [place] [address] Care Team Providers Care Office Runner Name Role Phone Buddy Morrow MD Primary Care Provider [phone] Surgical History Surgery Date Site/Laterality Comments CHOLECYSTECTOMY 1970 PROCEDURE: HISTORICAL CHOLECYSTECTOMY APPENDECTOMY 1973 PROCEDURE: HISTORICAL APPENDECTOMY TONSILLECTOMY PROCEDURE: HISTORICAL TONSILLECTOMY OTHER SURGICAL HISTORY 05/17/2024 N/A PROCEDURE: MO LAPS RPR PARAESPHGL HRNA INCL FUNDPLSTY W/MESH Medical History Medical History Date Comments Coronary atherosclerosis of unspecified type of vessel, southern ute or graft 07/25/2012 DX:Coronary atherosclerosis of unspecified type of vessel, southern ute or graft HTN (hypertension) 07/25/2012 DX:HTN (hyper tension) Historical Medical DX 07/25/2012 DX:Hyperli pidemia LDL goal < 70 DM2 (diabetes mellitus, type 2) ([facility]) 07/25/2012 DX:DM2 (diabetes mellitus, t ype 2) ([facility]) Hypothyroid 07/25/2012 DX:Hypothyroid Social History [...] age to complete this topic Care Teams Office Runner Relationship Specialty Start Date End Date Buddy Morrow MD [address] [place] [address] Drive [address] [place] [address] PCP - General Internal Medicine 07/25/12
[2025-02-05 15:07] LABS: HPV Genotype 16 Negative (Negative); HPV Genotype 18 Negative (Negative); HPV High Risk Negative (Negative)
== END 2025-02-01 08:03 | disposition home or self-care (01) ==
LOC: HO.LNP 08:02
PROVIDERS: PCP Internal Medicine; Visit Provider Obstetrics & Gynecology
DX: N95.0 Postmenopausal bleeding (principal)
CPT/HCPCS: 87626; 88175; 99202

== ENCOUNTER 2025-02-05 09:52 | Outpatient (AMB) | payer MEDICARE, OTHER, SELFPAY ==
--- NOTE | 2025-02-05 09:53 | MHC.OFFVIS ---
Vital Signs 02/05/25 09:54 Height 5 ft 4 in Weight 202 lb 6.15 oz BMI 34.7 BP 148/74 H Blood Pressure Location Rt brachial Position Sitting Pulse 78 Pulse Source Pulse Oximeter Pulse Oximetry (%) 98 Oxygen Delivery Method Room Air Intake Visit Reasons: S/P Sayre; Dr. Villalba Intake Note: ESTABLISHED PATIENT for s/p colo FUV. Poor prep (11/30) Chief Complaint; C.O worsening reflux w/o difficulty swallowing. No additional concerns reported at this time. Pt states that her prep worked well for her the day after her colonoscopy and that she will likely have to start prep a day earlier with her next colo. Yardage Estimator Required: No Accompanied by: Self / Same As Patient Allergies hydrocodone [From VICODIN] Allergy (Unknown, Verified 02/05/25 09:54) HEADACHE oxycodone [OXYCODONE] Allergy (Unknown, Verified 02/05/25 09:54) HIVES procaine [From NOVOCAIN] Allergy (Unknown, Verified 02/05/25 09:54) FAINTED HPI HPI S/P Sayre; Dr. Villalba: Details: LAST VISIT Dysphagia Cricopharyngeal achalasia Sliding hiatal hernia Dyspepsia GERD (gastroesophageal reflux disease) Postprandial epigastric pain Plan What to expect before during and after procedure discussed with patient. Patient denies any cardiac or respiratory symptoms on low-dose aspirin. Patient had procedures with anesthesia in December and did well. Denies any history of sleep apnea. Patient reports history of constipation at times. She will start taking Dulcolax 1 week before procedure every evening with 4 tablets day before procedure. Split MiraLax prep ordered as well. What to expect before during and after procedure discussed with patient. Stressed the importance of good bowel prep and clear liquid diet day before procedure. Patient will follow-up with me after the procedure. She will call our office if she will have any GI concerning symptoms. She is agreeable to this plan and verbalizes understanding of instructions. She was given the opportunity to ask questions and all questions answered. ? Thank you for allowing me to participate in her care Medications New bisacodyl (Dulcolax (bisacodyl)) Start taking 2 tablet every night 7 days before the procedure and 1 day before procedure take 4 tablets at noon time followed by MiraLax prep 10 mg (2 x 5 mg) PO BEDTIME 16 tabs 0RF Z12.11 polyethylene glycol 3350 (Miralax) As directed by gastroenterology department at [facility] 238 grams PO ONCE 238 grams 0RF Z12.11 COLONOSCOPY Findings: Terminal Ileum-not intubated Cecum:normal Ascending Colon: normal Transverse Colon - 7-8 mm sessile polyp removed with cold snare Descending Colon:normal Sigmoid Colon: moderate severe diverticulosis, 6-8 mm sessile polyp removed with cold snare Rectum: Retroflexion with small internal hemorrhoids seen, grade I Anorectum - normal Intervention: cold snare Colon preparation: [place] Bowel Preparation Scale Right colon; 1 Transverse colon: 1 Left colon; 1 (0 = Unprepared colon segment with mucosa not seen due to solid stool that cannot be cleared. 1 = Portion of mucosa of the colon segment seen, but other areas of the colon segment not well seen due to staining, residual stool and/or opaque liquid. 2 = Minor amount of residual staining, small fragments of stool and/or opaque liquid, but mucosa of colon segment seen well. 3 = Entire mucosa of colon segment seen well with no residual staining, small fragments of stool or opaque liquid) Impression and Post Procedure Diagnosis: diverticulosis colon polyps internal hemorrhoids Plan: High fiber diet leaflet Avoid straining at stool, epsom salts and sitz bath, anusol supps or cream Repeat Colonoscopy in 3-6 months or earlier if clinically indicated PATHOLOGY RESULTS Diagnosis A. Colon, transverse, polyp: Tubular adenoma; negative for high-grade dysplasia and carcinoma. B. Colon, sigmoid, polyp: Polypoid colonic mucosa with minor crypt distortion and prominent lymphoid aggregate; no adenomatous dysplasia seen TODAY'S VISIT Patient is here today for follow-up and to discuss colonoscopy results. Patient denies any ill effects from the prep, anesthesia or procedure itself. Patient was found to have 1 tubular adenoma. Suboptimal prep and colonoscopy needs to be repeated in 3-6 months. Patient does admit to be constipated. Patient did not follow instructions as discussed before procedure. Patient was supposed to take Dulcolax 1 week before procedure to help her empty better. Patient forgot and did regular prep with Dulcolax since split MiraLax. Patient admits to have been constipated. Bowel movements every couple days. Patient does not feel like she empties completely if either. Occasional acid reflux depending on what she eats. This morning patient reports acid reflux despite taking Nexium. Patient does admit to be eating shrimp cocktail late at night. Patient denies dyspepsia, dysphagia or odynophagia. Denies melena, hematochezia, unintentional weight loss or ribbon like stools. [facility] Medical History (Updated 02/05/25 @ 10:[address] 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 Diabetes type 2, uncontrolled Surgical History History of abdominal paracentesis History of esophagogastroduodenoscopy (EGD) History of colonoscopy History of repair of hiatal hernia History of cardiac catheterization Hx of hammer toe correction Hx of shoulder surgery Hx of tonsillectomy Hx laparoscopic cholecystectomy Hx of appendectomy Family History Brother Diabetes Father Lung cancer Mother HTN (hypertension) Social History Household Members: Family Housing: House Are you a primary personal care attendant to a significant other at home: No Do you presently have visiting nurse or other home services: No Alcohol intake: current Alcohol intake frequency: holidays/special occasions only Patient Tobacco Use Status: Former Tobacco user Tobacco use type: Cigarette Years Smoked: 20 e-Cigarette/Vaping Use: Never Used Second Hand Smoke Exposure: Yes service: No Current occupational status: retired Cognitive needs: No Hearing needs: No Vision needs: Yes (Glasses) Review of Systems Const Denies weight gain and Denies weight loss ENT Reports no additional complaints, Denies dysphagia and Denies odynophagia Card Reports no additional complaints Resp Reports no additional complaints GI Denies abdominal pain, Denies belching, Denies melena, Denies bloating, Denies change in bowel habits, Reports constipation, Denies dysphagia, Denies excessive flatus, Denies dyspepsia, Reports heartburn (Occasional), Denies diarrhea, Denies loose stools, Denies nausea, Denies odynophagia and Denies vomiting Reports no additional complaints Musc Reports no additional complaints Neuro Reports no additional complaints Psych Reports no additional complaints Endo Reports no additional complaints Physical Exam Vital Signs: Last Vital Signs Pulse 78 02/05/25 09:54 BP 148/74 H 02/05/25 09:54 Pulse Ox 98 02/05/25 09:54 Oxygen Delivery Method Room Air 02/05/25 09:54 BMI result Body Mass Index 34.7 Const General: healthy appearing and no acute distress Nutritional Appearance: obese Orientation/consciousness: patient oriented x3 Resp Effort & Inspection: normal respiratory effort, able to speak in complete sentences, no tracheal deviation and symmetric chest movement Auscultation: clear to auscultation bilaterally Cardio Rate: regular rate GI Inspection: Yes normal to inspection, No distended and Yes obesity Palpation (GI): Soft to palpation, not firm, nontender and No hepatosplenomegaly present Auscultation: normal bowel sounds General: Yes no CVA tenderness Back/Spine/Pelvis Back: no CVA tenderness Skin General skin exam: elasticity normal, turgor normal and dry skin Neuro General: patient oriented x3 Psych Appearance: grossly normal Mental Status: mental status grossly normal Assessment & Plan Assessment & Plan (1) Dysphagia: Code(s): R13.10 - Dysphagia, unspecified Category: Medical Qualifiers: Dysphagia type: oropharyngeal phase Qualified Code(s): R13.12 - Dysphagia, oropharyngeal phase (2) Cricopharyngeal achalasia: Code(s): K22.0 - Achalasia of cardia (3) Sliding hiatal hernia: Code(s): K44.9 - Diaphragmatic hernia without obstruction or gangrene (4) Dyspepsia: Code(s): R10.13 - Epigastric pain (5) GERD (gastroesophageal reflux disease): Code(s): K21.9 - Gastro-esophageal reflux disease without esophagitis Qualifiers: Esophagitis presence: esophagitis presence not specified Qualified Code(s): K21.9 - Gastro-esophageal reflux disease without esophagitis (6) Postprandial epigastric pain: Code(s): R10.13 - Epigastric pain (7) Constipation: Code(s): K59.00 - Constipation, unspecified Qualifiers: Constipation type: slow transit constipation Qualified Code(s): K59.01 - Slow transit constipation (8) Tubular adenoma of colon: Code(s): D12.6 - Benign neoplasm of colon, unspecified Category: Medical Plan Patient will continue Nexium daily. Avoid dietary triggers and late night snacking. Staying upright for minimum 3 hours after meals discussed with patient. Suboptimal prep and patient will need to repeat colonoscopy in 3-6 months. Patient will start taking Dulcolax daily, split MiraLax prep and Dulcolax discussed with patient. Patient will try magnesium citrate 2 nights before with taking half of the bottle at 17:00 followed by the rest of the bottle 2 hours later. What to expect before during and after procedure discussed with patient. Patient denies any issues with anesthesia. Patient is on low-dose aspirin. What to expect before during and after procedure discussed with patient. Stressed the importance of good bowel prep and clear liquid diet day before procedure. I will see her after the procedure. Patient is agreeable to current plan of care and verbalizes understanding of instructions. She was given the opportunity to ask questions and all questions answered. Thank you for allowing me to participate in her care Medications: New bisacodyl (Dulcolax (bisacodyl)) 10 mg (2 x 5 mg) PO BEDTIME 180 tabs 4RF polyethylene glycol 3350 (Miralax) As directed by gastroenterology department at [facility] 238 grams PO ONCE 238 grams 0RF Z12.11 - Encounter for screening for malignant neoplasm of colon magnesium citrate (Citrate of Magnesia oral) 2 nights before colonoscopy drink half a bottle at 17:00 and then rest of the bottle 2 hours later 150 mL PO ONCE 296 mL 0RF constipation Refilled esomeprazole magnesium (Nexium) 40 mg PO DAILY 90 caps 2RF K21.9 - Gastro-esophageal reflux disease without esophagitis Coding Level of Care Code Est Pt Level 4 (77480) Complex EM visit Add On G2211 Diagnoses Oropharyngeal dysphagia R13.12 Dysphagia type: oropharyngeal phase Cricopharyngeal achalasia K22.0 Sliding hiatal hernia K44.9 Dyspepsia R10.13 Gastroesophageal reflux disease, unspecified whether esophagitis present K21.9 Esophagitis presence: esophagitis presence not specified Postprandial epigastric pain R10.13 Slow transit constipation K59.01 Constipation type: slow transit constipation Tubular adenoma of colon D12.6 Time Spent (min) 35 Comment 25 minutes spent with patient and additional 10 minutes spent reviewing her records
[2025-02-05 09:54] VITALS: BP 148/74; PULSE 78; O2SAT 98; BMI 34.7
--- OUTSIDE RECORDS SUMMARY | 2025-02-05 11:15 | XMS_ITS ---
Author Organization [facility] Address [address] [place], [place] [address] Care Team Providers Care Batch Still Operator Name Role Phone Buddy Morrow MD Primary Care Provider Benjamin Skelton Unavailable [phone] Allergies Allergen (clinical drug ingredient) Drug/Non Drug [...] Ordered Date Performed Result Body Sit e 22716-TAKIRQG NAIL, 6 OR MORE 10/09/2024 N/A 74649-ZTLS SKIN LESIONS, OVER 4 10/09/2024 N/A Encounters Encounter Location Date Provider Diagnosis [facility] [address] [address] 10/09/2024 Benjamin Landeros Type 1 diabetes mellitus with diabetic polyneuropathy E10.42 and Tinea unguium B35.1 Assessments Encounter Date Diagnosis (ICD Code) Assessment Notes Treatment Notes Treatment Clinical Notes Section Notes 10/09/2024 Type 1 diabetes mellitus with diabetic polyneuropathy (ICD-10 - E10.42) 10/09/2024 Tinea unguium (ICD-10 - B35.1) 10/09/2024 Other Plan Of Treatment Pending Test Test Name Order Date 72077-DSZBROJ NAIL, 6 OR MORE 10/09/2024 08484-DUOU SKIN LESIONS, OVER 4 10/09/20 24 Next Appt Details Follow Up: prn, Reason: Provider Name:Benjamin Landeros , 04/23/2025 01:30:00 PM, [address] [place] [address], [id number], Procedure Notes * Category Sub-Category Detail Notes [...] use of a nail nipper and/or dremel-type crystal grinder, to a more viable healthy nail plate or bed tissue 6-10. Silver nitrate used for any petechial bleeding as necessary. Definitive antifungal treatment options have been reviewed and discussed with the patient. The patient chooses, no pharmaceutical tx - 95079 Keratoma Treatment Parring or Cutting o f Benign Hyperkeratotic Lesion(s) (-57) More than 4 Lesions - The Benign hyperkeratotic lesions, as described in exam, were pared, and/or cut utilizing a sterile 15 blade, tissue nippers, and/or dremel - 64448 Progress Notes * Miriam NOGUEIRA JDOB: (74 yo F)Acc No.[id number]:10/09/2024 Progress Note Patient:?ROLANDOODILIA Tammie yonathan Ward Provider:?Benjamin Landeros DPM :1950???Age:74 Y???Sex:Female D ate:10/09/2024 Address:[facility] [address], [facility] Pcp:Buddy Morrow MD Subjective: * Chief Complaints: [...] ?Marital status: . 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 * Medications:?TakingPantopraz ole Sodium 40 MG Tablet [...] use of a nail nipper and/or dremel-type crystal grinder, to a more viable healthy nail plate or bed tissue 6-10. Silver nitrate used for any petechial bleeding as necessary. Definitive antifungal treatment options have been reviewed and discussed with the patient. The patient chooses, no pharmaceutical tx - 46047.?Keratoma Treatment:?Parring or Cutting of Benign Hyperkeratotic Lesion(s)?(-57) More than 4 Lesions - The Benign hyperkeratotic lesions, as described in exam, were pared, and/or cut utilizing a sterile 15 blade, tissue nippers, and/or dremel - 89747.? * Procedure Codes:?23853 DEBRI DE NAIL, 6 OR MORE, Modifiers: XS 75031 TRIM SKIN LESIONS, OVER 4, Modifiers: XS * Follow Up:?prn * Images: * Sign off status: Completed true * Provider:?Benjamin Landeros DPM Date:?2023 Generated for Stephanie smith/Jareth/Ania on:?02/05/2025 11:14 AM EDT History and Physical Notes * HPI (History [...]
--- OUTSIDE RECORDS SUMMARY | 2025-02-05 11:15 | XMS_ITS | Clinical Summary ---
Author Organization [facility] Address [address] [place] [address] Care Team Providers Care Anesthesiologist Assistant Name Role Phone Buddy Morrow MD Primary Care Provider [phone] Surgical History Surgery Date Site/Laterality Comments CHOLECYSTECTOMY 1970 PROCEDURE: HISTORICAL CHOLECYSTECTOMY APPENDECTOMY 1973 PROCEDURE: HISTORICAL APPENDECTOMY TONSILLECTOMY PROCEDURE: HISTORICAL TONSILLECTOMY OTHER SURGICAL HISTORY 05/17/2024 N/A PROCEDURE: MO LAPS RPR PARAESPHGL HRNA INCL FUNDPLSTY W/MESH Medical History Medical History Date Comments Coronary atherosclerosis of unspecified type of vessel, yuhaaviatam or graft 07/25/2012 DX:Coronary atherosclerosis of unspecified type of vessel, yuhaaviatam or graft HTN (hypertension) 07/25/2012 DX:HTN (hyper tension) Historical Medical DX 07/25/2012 DX:Hyperli pidemia LDL goal < 70 DM2 (diabetes mellitus, type 2) ([facility]) 07/25/2012 DX:DM2 (diabetes mellitus, t ype 2) ([facility]) Hypothyroid 07/25/2012 DX:Hypothyroid Social History Tobacco Use [...] age to complete this topic Care Teams Anesthesiologist Assistant Relationship Specialty Start Date End Date Buddy Morrow MD [address] [place] [address] Drive [address] [place] [address] PCP - General Internal Medicine 07/25/12
--- OUTSIDE RECORDS SUMMARY | 2025-02-05 11:15 | XMS_ITS ---
Author Organization [facility] Address [address] [place], [place] [address] Care Team Providers Care Ski Edge Painter Name Role Phone Buddy Morrow MD Primary Care Provider Benjamin Skelton Unavailable [phone] Allergies Allergen (clinical drug ingredient) Drug/Non Drug [...] Ordered Date Performed Result Body Sit e 70172-FHOZGIX NAIL, 6 OR MORE 01/15/2025 N/A 98536-NOTR SKIN LESIONS, OVER 4 01/15/2025 N/A Encounters Encounter Location Date Provider Diagnosis [facility] [address] [address] 01/15/2025 Benjamin Landeros Type 1 diabetes mellitus [...] INSTRUCTIONS.pdf) Pending Test Test Name Order Date 98830-XUZVQEE NAIL, 6 OR MORE 01/15/2025 84404-JTCQ SKIN LESIONS, OVER 4 01/15/20 25 Next Appt Details Follow Up: prn, Reason: Provider Name:Benjamin Landeros , 04/23/2025 01:30:00 PM, [address] [place], [address], Procedure Notes * Category Sub-Category Detail Notes [...] use of a nail nipper and/or dremel-type snuff grinder and screener, to a more viable healthy nail plate [...] to maintain effectiveness in symptomatic relief - 81952 Keratoma Treatment Parring or Cutting o f [...] instrumentation by the physician of record - 19901 Progress Notes * Miriam NOGUEIRA JDOB: (74 yo F)Acc No.[id number]:01/15/2025 Progress Note Patient:Tammie GREEN Provider:?Benjamin Landeros DPM :1950???Age:74 Y???Sex:Female D ate:01/15/2025 Address:[facility] [address], [facility] Pcp:Buddy Morrow MD Subjective: * Chief Complaints: [...] ?Marital status: . 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 ???Drug/Alcohol:?AUDIT-C (Standard)?Did you have a drink containing [...] 2.?Type 1 diabetes mellitus with diabetic polyneuropathy?Procedure: 69653-GELTIKC NAIL, 6 OR MORE ?Procedure: 78105-SVYN SKIN LESIONS, OVER 4 * Procedures:?Debride Nail [...] use of a nail nipper and/or dremel-type snuff grinder and screener, to a more viable healthy nail plate [...] to maintain effectiveness in symptomatic relief - 53694.?Keratoma Treatment:?Parring or Cutting of Benign Hyperkeratotic Lesion(s)?(-57) [...] instrumentation by the physician of record - 00833.? * Procedure Codes:?76769 DEBRI DE NAIL, 6 OR MORE, Modifiers: XS 92536 TRIM SKIN LESIONS, OVER 4, Modifiers: XS [...] Provider:?Benjamin Landeros DPM Date:?2024 Generated for Stephanie smith/Jareth/Elitting on:?02/05/2025 11:15 AM EDT History and Physical Notes * [...]
--- OUTSIDE RECORDS SUMMARY | 2025-02-05 11:15 | XMS_ITS | Patient Health Record ---
Author Organization [facility] Address [address] [facility] [place] [address] Care Team Providers Care Special Population Paraprofessional Name Role Phone Buddy Morrow MD Primary Care Provider Benjamin Skelton Unavailable [phone] Allergies Allergen (clinical drug ingredient) Drug/Non Drug Allergy documented on EMR Reaction Allergy Type Onset Date Status Novocain pass out Drug Allergy Active oxycodone Oxycodone HCl hives Drug Allergy Act gila Vicodin headache Drug Allergy Active Results Component Value Reference Range Notes HEMOGLOBIN A1C (GLYCOHEMOGLO BIN) Reviewed date:06/26/2024 01:45:50 PM Interpretation: Performing Lab: Notes/Report: HEMOGLOBIN A1C % (HH) 6.9 HEMOGLOBIN A1C (GLYCOHEMOGLO BIN) Reviewed date:01/15/2025 01:49:30 PM Interpretation: Performing Lab: Notes/Report: HEMOGLOBIN A1C % (HH) 7.2 Reason For Referral No Information Medications Medication [...] Problem Acquired hammer toe of right foot (0502393144935556 ) Other hammer toe(s) (acquired), right foot (M20.41) Active confirmed Response to treatment, Improvemen t Problem Acquired hammer toe of left foot ([id number] ) Other hammer toe(s) (acquired), left foot (M20.42) Active confirmed Response to treatment, Improvemen t Problem Polyneuropathy due to diabetes mellitus type I (739042364) 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 confirmed Vital Signs Blood pressure diastolic 70 mm Hg 01/15/2025 Height 5ft4in in 01/15/2025 Blood pressure systolic 103 mm Hg 01/15/2025 Weight 200 lbs 01/15/2025 BMI 34.33 kg/m2 01/15/2025 Procedures Procedure Date Ordered Date Performed Result Body Sit e 84608-FJJBOHT NAIL, 6 OR MORE 03/27/2024 N/A 84160-QVON SKIN LESIONS, OVER 4 03/27/2024 N/A 84689-ZYBNXOD NAIL, 6 OR MORE 06/26/2024 N/A 74882-CSDJ SKIN LESIONS, OVER 4 06/26/2024 N/A 36220-KSFKHII NAIL, 6 OR MORE 10/09/2024 N/A 75719-TLVP SKIN LESIONS, OVER 4 10/09/2024 N/A 34134-BFWWGLM NAIL, 6 OR MORE 01/15/2025 N/A 07548-AJEH SKIN LESIONS, OVER 4 01/15/2025 N/A Encounters Encounter Location Date Provider Diagnosis [address] [address] 03/27/2024 Benjamin Leti Type 1 diabetes mellitus with diabetic polyneuropathy E10.42 and Tinea unguium B35.[address] [address] 06/26/2024 Benjamin Leti Type 1 diabetes mellitus with diabetic polyneuropathy E10.42 ; Tinea unguium B35.1 ; Other hammer toe(s) (acquired), right foot M20.41 and Other hammer toe(s) (acquired), left foot M20.[address] [address] 10/09/2024 Benjamin Leti Type 1 diabetes mellitus with diabetic polyneuropathy E10.42 and Tinea unguium B35.[address] [address] 01/15/2025 Benjamin Leti Type 1 diabetes mellitus [...] 02/11/2015 Hemoglobin A1c 12/02/2015 Hemoglobin A1c 06/03/2017 27094-QTRRXVU NAIL, 6 OR MORE 10/09/2024 84696-RAPHWXF NAIL, 6 OR MORE 01/15/2025 34402-OKYQIJQ NAIL, 6 OR MORE 09/12/2020 01880-PJTUYZC NAIL, 6 OR MORE 12/12/2020 40185-ZTSLHTK NAIL, 6 OR MORE 03/13/2021 04821-DLXLNVJ NAIL, 6 OR MORE 06/12/2021 10170-VORGLMU NAIL, 6 OR MORE 09/18/2021 24252-JQYAQZN NAIL, 6 OR MORE 12/18/2021 57948-YVFTDYD NAIL, 6 OR MORE 03/23/2022 75682-JWUGMUC NAIL, 6 OR MORE 06/25/2022 78829-GAHHNNM NAIL, 6 OR MORE 09/24/2022 39484-BFVUANN NAIL, 6 OR MORE 12/24/2022 19904-OYMGYCG NAIL, 6 OR MORE 03/25/2023 73833-WPTUWVH NAIL, 6 OR MORE 06/24/2023 19263-FQWUCJG NAIL, 6 OR MORE 09/27/2023 88504-KNCHVWS NAIL, 6 OR MORE 12/27/2023 94025-DCLFIHS NAIL, 6 OR MORE 03/27/2024 09620-PMHHHEX NAIL, 6 OR MORE 06/26/2024 26957-TYBXRJS NAIL, 6 OR MORE 08/22/2015 46000-YYVTWEA NAIL, 6 OR MORE 05/16/2015 21560-IOXBCKT NAIL, 6 OR MORE 02/11/2015 89710-NDHBMXE NAIL, 6 OR MORE 11/02/2013 29449-RROTFOG NAIL, 6 OR MORE 02/01/2014 71574-EUIBBPO NAIL, 6 OR MORE 05/10/2014 16692-LGSPNJM NAIL, 6 OR MORE 08/13/2014 12222-FUZETOX NAIL, 6 OR MORE 11/12/2014 69732-AHVFGBA NAIL, 6 OR MORE 07/27/2011 63727-BDFOCCV NAIL, 6 OR MORE 10/15/2011 53529-TRGJHRS NAIL, 6 OR MORE 01/14/2012 93675-VPUDKKG NAIL, 6 OR MORE 04/11/2012 58008-OQWXMYZ NAIL, 6 OR MORE 07/28/2012 91475-JSEQUBC NAIL, 6 OR MORE 10/13/2012 95258-ORMCGPC NAIL, 6 OR MORE 01/12/2013 52137-YMZGYKN NAIL, 6 OR MORE 04/13/2013 09822-DYGLHIC NAIL, 6 OR MORE 08/03/2013 71839-VFXUCRO NAIL, 6 OR MORE 12/02/2015 59370-MZPNLKB NAIL, 6 OR MORE 03/02/2016 88078-MSJESRP NAIL, 6 OR MORE 06/11/2016 07651-DKJCKLO NAIL, 6 OR MORE 09/10/2016 32015-DXJNYJC NAIL, 6 OR MORE 12/10/2016 55545-HFKCRBQ NAIL, 6 OR MORE 03/04/2017 73932-PKHQWIV NAIL, 6 OR MORE 06/07/2017 03975-WQQFZNQ NAIL, 6 OR MORE 09/06/2017 26896-PLGCSMZ NAIL, 6 OR MORE 12/09/2017 08710-HPRSODI NAIL, 6 OR MORE 03/10/2018 60440-GREOFLJ NAIL, 6 OR MORE 06/13/2018 61284-BIZTSVP NAIL, 6 OR MORE 09/12/2018 32933-KMBAIOZ NAIL, 6 OR MORE 12/26/2018 85587-OEQOQAJ NAIL, 6 OR MORE 03/27/2019 76766-RDGMCCY NAIL, 6 OR MORE 06/26/2019 61438-EQJWQQN NAIL, 6 OR MORE 09/25/2019 56448-DIQEYII NAIL, 6 OR MORE 12/25/2019 74385-YTMUKKP NAIL, 6 OR MORE 06/13/2020 44733- Debride <25 sq cm 08/03/2013 59342-FCXW SKIN LESIONS, OVER 4 11/02/20 13 44234-PUNP SKIN LESIONS, OVER 4 11/12/20 14 71329-DMIM SKIN LESIONS, OVER 4 08/13/20 14 76393-ZYSC SKIN LESIONS, OVER 4 05/10/20 14 49770-HFMV SKIN LESIONS, OVER 4 02/02/20 14 57037-FZZO SKIN LESIONS, OVER 4 02/12/20 15 08132-SWCN SKIN LESIONS, OVER 4 05/16/20 15 31524-WRHS SKIN LESIONS, OVER 4 08/22/20 15 04617-STDJ SKIN LESIONS, OVER 4 12/02/19 16 27689-PFQC SKIN LESIONS, OVER 4 06/13/20 20 34836-IJXA SKIN LESIONS, OVER 4 12/25/19 20 52034-WTVK SKIN LESIONS, OVER 4 09/25/20 19 34664-IIET SKIN LESIONS, OVER 4 06/26/20 19 14016-DRGX SKIN LESIONS, OVER 4 03/27/20 19 41141-JCZT SKIN LESIONS, OVER 4 12/26/19 19 50572-LXLI SKIN LESIONS, OVER 4 09/12/20 18 02384-OZWA SKIN LESIONS, OVER 4 06/13/20 18 08377-KOEA SKIN LESIONS, OVER 4 03/10/20 18 12518-HLKP SKIN LESIONS, OVER 4 12/09/19 18 86811-XBTN SKIN LESIONS, OVER 4 09/06/20 17 55617-TSJW SKIN LESIONS, OVER 4 03/04/20 17 36630-MOOL SKIN LESIONS, OVER 4 06/07/20 17 58539-YERN SKIN LESIONS, OVER 4 12/10/19 17 33259-MDAZ SKIN LESIONS, OVER 4 09/10/20 16 00401-CQMP SKIN LESIONS, OVER 4 06/11/20 16 33303-OUXB SKIN LESIONS, OVER 4 03/02/20 16 77169-PNFM SKIN LESIONS, OVER 4 06/26/20 24 19965-HQZD SKIN LESIONS, OVER 4 03/27/20 24 87720-SBDN SKIN LESIONS, OVER 4 12/27/19 24 36265-XQVJ SKIN LESIONS, OVER 4 09/27/20 23 48664-MZLX SKIN LESIONS, OVER 4 06/24/20 34650-RROX SKIN LESIONS, OVER 4 03/25/20 61686-MWYJ SKIN LESIONS, OVER 4 12/24/19 23 17273-JSXL SKIN LESIONS, OVER 4 09/24/20 04731-ZJXX SKIN LESIONS, OVER 4 06/25/20 97303-PGQS SKIN LESIONS, OVER 4 03/23/20 81518-BDVC SKIN LESIONS, OVER 4 12/18/19 96700-YDQF SKIN LESIONS, OVER 4 09/18/20 67773-BEOK SKIN LESIONS, OVER 4 06/12/20 70330-LYQL SKIN LESIONS, OVER 4 03/13/20 11727-JPRH SKIN LESIONS, OVER 4 12/12/19 21 90690-HZYS SKIN LESIONS, OVER 4 09/12/20 88846-DTRY SKIN LESIONS, OVER 4 01/15/20 25 27647-NLVW SKIN LESIONS, OVER 4 10/09/20 24 42874-XSHJ SKIN LESIONS, 2 TO 4 07/27/20 11 03492-DCCA SKIN LESIONS, 2 TO 4 04/13/20 13 39792-HHLF SKIN LESIONS, 2 TO 4 01/12/20 13 71124-JYIS SKIN LESIONS, 2 TO 4 10/13/20 12 94041-WFOO SKIN LESIONS, 2 TO 4 07/28/20 12 68276-HSRF SKIN LESIONS, 2 TO 4 04/11/20 12 29668-BUMT SKIN LESIONS, 2 TO 4 01/14/20 12 92062-VOMW SKIN LESIONS, 2 TO 4 10/15/20 11 HEMOGLOBIN A1C (GLYCOHEMOGLOBIN) 020 Next Appt Details Provider Name:Benjamin Andersen Leti , 04/23/2025 01:30:00 PM, [address] [place] [address], [place], [address], Insurance Providers Payer Name Payer Address Payer Phone Subscriber Number Group Number Insured Name Patient Relationship to Insured Coverage Start Date Coverage End Date [employer] Medicare Adv-26968 [address] [address] [place] [address] [id number] Miriam Henry Self - patient is the insured [facility] Claims [facility] Office of Community Care [address] [address] [place] [address] [id number] Miriam Henry Self - patient is the [...] surgery, esophagus surgery 05/17[facility]24 [facility] 02/27/2021 [facility]- Hiatal hernia flare up 05/21/19
--- OUTSIDE RECORDS SUMMARY | 2025-02-05 11:15 | XMS_ITS ---
Author Organization [facility] Address [address] [facility] [place] [place] [address] Care Team Providers Care Steward/Stewardess Name Role Phone Buddy Morrow MD Primary Care Provider Benjamin Skelton Unavailable [phone] Allergies Allergen (clinical drug ingredient) Drug/Non Drug [...] Ordered Date Performed Result Body Sit e 04765-OJCBUIL NAIL, 6 OR MORE 06/26/2024 N/A 41110-LNHP SKIN LESIONS, OVER 4 06/26/2024 N/A Encounters Encounter Location Date Provider Diagnosis [facility] [place] [address] [place] [address] 06/26/2024 Benjamin Landeros Type 1 diabetes mellitus [...] INSTRUCTIONS.pdf) Pending Test Test Name Order Date 03005-GDXGLRO NAIL, 6 OR MORE 06/26/2024 26587-COKV SKIN LESIONS, OVER 4 06/26/20 24 Next Appt Details Follow Up: prn, Reason: Provider Name:Benjamin Landeros , 04/23/2025 01:30:00 PM, [address] [place], [address], Procedure Notes * Category Sub-Category Detail Notes [...] as necessary. Patient chooses, no pharmaceutical tx (70094) Keratoma Treatment Parring or Cutting o f Benign Hyperkeratotic Lesion(s) 45177 ( >4 Lesions) - The Benign hyperkeratotic lesions, as described above were pared, and/or cut utilizing a sterile #15 blade, tissue nippers, and/or dremel Progress Notes * Miriam NOGUEIRA JDOB: (73 yo F)Acc No.[id number]:06/26/2024 Progress Note Patient:?Tammie Nogueira Provider:?Benjamin Landeros DPM :1950???Age:73 Y???Sex:Female D ate:06/26/2024 Address:[address], [place] Pcp:Buddy Morrow MD Subjective: * Chief Complaints: [...] ?Marital status: . 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 * Medications:?TakingPantopraz ole Sodium 40 MG Tablet [...] 2.?Type 1 diabetes mellitus with diabetic polyneuropathy?Procedure: 68764-FSJIDMX NAIL, 6 OR MORE ?Procedure: 02360-WISH SKIN LESIONS, OVER 4 * Procedures:?Debride Nail 6-10:?Nail debridement?Nail debridement performed extensively to reduce/remove overall nail length, girth, thickness, subungual debris, and necrotic tissue, by manual and electrical means through the use of a nail nipper and/or dremel, to more viable healthy nail plate or bed tissue 1-5. Silver nitrate used for any petechial bleeding as necessary. Patient chooses, no pharmaceutical tx (44832).?Keratoma Treatment:?Parring or Cutting of Benign Hyperkeratotic Lesion(s)?45814 ( >4 Lesions) - The Benign hyperkeratotic lesions, as described above were pared, and/or cut utilizing a sterile #15 blade, tissue nippers, and/or dremel.? * Procedure Codes:?23580 DEBRI DE NAIL, 6 OR MORE, Modifiers: XS 94179 TRIM SKIN LESIONS, OVER 4, Modifiers: XS [...] Landeros DPM Date:?2023 Generated for Stephanie smith/Jareth/Elitting on:?02/05/2025 11:15 AM [...]
== END 2025-02-05 10:50 | disposition home or self-care (01) ==
LOC: HO.HGI 09:52
PROVIDERS: PCP Internal Medicine; Visit Provider Nurse Practitioner Family
DX: R13.12 Dysphagia, oropharyngeal phase (principal); K22.0 Achalasia of cardia; K44.9 Diaphragmatic hernia without obstruction or gangrene; R10.13 Epigastric pain; K21.9 Gastro-esophageal reflux disease without esophagitis; K59.01 Slow transit constipation; D12.6 Benign neoplasm of colon, unspecified
CPT/HCPCS: 99214; G2211

== ENCOUNTER → 2025-02-05 09:52 | Outpatient (BNVA) | payer MEDICARE, OTHER, SELFPAY | PROVIDERS: PCP Internal Medicine; Visit Provider Nurse Practitioner Family | DX: R13.12 Dysphagia, oropharyngeal phase (principal); K22.0 Achalasia of cardia; K44.9 Diaphragmatic hernia without obstruction or gangrene; K21.9 Gastro-esophageal reflux disease without esophagitis; K59.01 Slow transit constipation; R10.13 Epigastric pain; D12.6 Benign neoplasm of colon, unspecified | CPT/HCPCS: 99212 ==

== ENCOUNTER 2025-02-12 12:36 | Outpatient (REF) | payer MEDICARE, OTHER, SELFPAY ==
--- NOTE | ~2025-02-12 | US_ITS ---
CLINICAL HISTORY: N95.0 - Postmenopausal bleeding US pelvis transvaginal Comparison: None Findings: Transvaginal scanning performed. The uterus is 7.9 cm in length and is mildly anteverted. 14 mm calcified fibroid, otherwise normal myometrium. Abnormally thickened endometrium at 25 mm thickness. Right ovary 2.0 x 1.5 x 1.7 cm. Left ovary 2.5 x 1.6 x 1.4 cm. Normal color Doppler of both ovaries. No free fluid. IMPRESSION: The endometrium is significantly, abnormally thickened. Direct visualization and possible sampling would be warranted. This document has been electronically signed by: Andrea Mauricio MD on 02/13/2025 18:27:39
--- OUTSIDE RECORDS SUMMARY | 2025-02-12 14:49 | XMS_ITS | Encounter Summary ---
Author Organization [facility] Address [address] [place] [address] Care Team Providers Care Produce Manager Name Role Phone Buddy Morrow Primary Care Provider Unavailabl e Linda Melgar SENIOR MEDICAL BILLING SPECIALIST Unavailable Unavailable Nancy Lopez MD Unavailable Slava Hernández PA-C Unavailable [phone] Encounter Details Date Type Department Care Team Description 02/16/2018 Release of Information Medical Records [address] [place] [address] Abstract, Provider Social History Tobacco Use Types [...] on filedocumented in this encounter Care Teams Produce Manager Relationship Specialty Start Date End Date Buddy Morrow PCP - General Internal Medicine 07/25/12 Linda Melgar, SENIOR MEDICAL BILLING SPECIALIST Specialist Gastroenterology 04/18/24 Nancy Lopez MD Specialist Thoracic Surgery 04/18/24 Slava Hernández PA-C [address] [place] [phone] Specialist Thoracic Surgery 05/30/24 documented as of this encounter
--- OUTSIDE RECORDS SUMMARY | 2025-02-12 14:49 | XMS_ITS | Clinical Summary ---
Author Organization [facility] Address [address] [place] [address] Care Team Providers Care Mangle Press Catcher Name Role Phone Buddy Morrow MD Primary Care Provider [phone] Surgical History Surgery Date Site/Laterality Comments CHOLECYSTECTOMY 1970 PROCEDURE: HISTORICAL CHOLECYSTECTOMY APPENDECTOMY 1973 PROCEDURE: HISTORICAL APPENDECTOMY TONSILLECTOMY PROCEDURE: HISTORICAL TONSILLECTOMY OTHER SURGICAL HISTORY 05/17/2024 N/A PROCEDURE: [place] LAPS RPR PARAESPHGL HRNA INCL FUNDPLSTY W/MESH Medical History Medical History Date Comments Coronary atherosclerosis of unspecified type of vessel, hoh or graft 07/25/2012 DX:Coronary atherosclerosis of unspecified type of vessel, hoh or graft HTN (hypertension) 07/25/2012 DX:HTN (hyper tension) Historical Medical DX 07/25/2012 DX:Hyperli pidemia LDL goal < 70 DM2 (diabetes mellitus, type 2) ([facility]) 07/25/2012 DX:DM2 (diabetes mellitus, t ype 2) ([facility]) Hypothyroid 07/25/2012 DX:Hypothyroid Social History Tobacco Use [...] age to complete this topic Care Teams Mangle Press Catcher Relationship Specialty Start Date End Date Buddy Morrow MD [address] [place] [address] Drive [address] [place] [address] PCP - General Internal Medicine 07/25/12
--- OUTSIDE RECORDS SUMMARY | 2025-02-12 14:49 | XMS_ITS | Encounter Summary ---
Author Organization [facility] Address [address] [place] [address] Care Team Providers Care Sales Receptionist Name Role Phone Buddy Morrow Primary Care Provider Unavailabl e Linda Melgar TIME STUDY TECHNICIAN Unavailable Unavailable Nancy Lopez MD Unavailable Slava Hernández PA-C Unavailable [phone] Encounter Details Date Type Department Care Team Description 04/16/2022 Transfer Records Medical Records [address] [place] [address] Abstract, Provider Social History Tobacco Use Types [...] on filedocumented in this encounter Care Teams Sales Receptionist Relationship Specialty Start Date End Date Buddy Morrow PCP - General Internal Medicine 07/25/12 Linda Melgar, TIME STUDY TECHNICIAN Specialist Gastroenterology 04/18/24 Nancy Lopez MD Specialist Thoracic Surgery 04/18/24 Slava Hernández PA-C [address] [place] [phone] Specialist Thoracic Surgery 05/30/24 documented as of this encounter
--- OUTSIDE RECORDS SUMMARY | 2025-02-12 14:49 | XMS_ITS ---
Author Organization [facility] Address [address] [facility] [place], [place] [address] Care Team Providers Care Molded Goods Controls Operator Name Role Phone Buddy Morrow MD Primary Care Provider Benjamin Skelton Unavailable [phone] Allergies Allergen (clinical drug ingredient) Drug/Non Drug [...] No Points 0 Interpretation Negative Vital Signs Blood pressure systolic 103 mm Hg 01/15/20 25 Blood pressure diastolic 70 mm Hg 025 Height 5ft4in in 01/15/2025 Weight 200 lbs 01/15/2025 BMI 34.33 kg/m2 01/15/2025 Procedures Procedure Date Ordered Date Performed Result Body Sit e 33620-ZKUJRVJ NAIL, 6 OR MORE 01/15/2025 N/A 86936-FHJY SKIN LESIONS, OVER 4 01/15/2025 N/A Encounters Encounter Location Date Provider Diagnosis [facility] [address] [address] 01/15/2025 Benjamin Landeros Type 1 diabetes mellitus [...] INSTRUCTIONS.pdf) Pending Test Test Name Order Date 97958-DVQLZAQ NAIL, 6 OR MORE 01/15/2025 38891-NYOP SKIN LESIONS, OVER 4 01/15/20 25 Next Appt Details Follow Up: prn, Reason: Provider Name:Benjamin Landeros , 04/23/2025 01:30:00 PM, [address] [place], [address], Procedure Notes * Category Sub-Category Detail Notes [...] use of a nail nipper and/or dremel-type jewel grinder, to a more viable healthy nail [...] to maintain effectiveness in symptomatic relief - 90059 Keratoma Treatment Parring or Cutting o f [...] instrumentation by the physician of record - 49741 Progress Notes * Miriam NOGUEIRA JDOB: (74 yo F)Acc No.[id number]:01/15/2025 Progress Note Patient:Tammie GREEN Provider:?Benjamin Landerso DPM :1950???Age:74 Y???Sex:Female D ate:01/15/2025 Address:[facility] [address], [facility] Pcp:Buddy Morrow MD Subjective: * Chief Complaints: [...] ?Marital status: . 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 ???Drug/Alcohol:?AUDIT-C (Standard)?Did you have a drink containing [...] 2.?Type 1 diabetes mellitus with diabetic polyneuropathy?Procedure: 48286-SZRWPWC NAIL, 6 OR MORE ?Procedure: 43114-ITTC SKIN LESIONS, OVER 4 * Procedures:?Debride Nail [...] use of a nail nipper and/or dremel-type jewel grinder, to a more viable healthy nail [...] to maintain effectiveness in symptomatic relief - 47563.?Keratoma Treatment:?Parring or Cutting of Benign Hyperkeratotic Lesion(s)?(-57) [...] instrumentation by the physician of record - 01453.? * Procedure Codes:?24417 DEBRI DE NAIL, 6 OR MORE, Modifiers: XS 05107 TRIM SKIN LESIONS, OVER 4, Modifiers: XS [...] Landeros DPM Date:?2024 Generated for Stephanie smith/Jareth/Elitting on:?02/12/2025 02:49 PM EDT History and Physical Notes * HPI (History of Present Illness) Category Sub-Category Detail Notes Category Not es Toe pain Location: B/L feet Duration: several years Course: worse Aggravated by: shoes, any pressure Treatments: change in shoes At Risk footcare Pt States Last PCP Visit: Date: 5 Examination Category Sub-Category Detail Notes Category Not [...]
--- OUTSIDE RECORDS SUMMARY | 2025-02-12 14:49 | XMS_ITS | Encounter Summary ---
Author Organization [facility] Address [address] [place] [address] Care Team Providers Care Guest History Clerk Name Role Phone Buddy Morrow Primary Care Provider Unavailabl e Linda Melgar SHARK BIOLOGIST Unavailable Unavailable Nancy Lopez MD Unavailable Slava Hernández PA-C Unavailable [phone] Encounter Details Date Type Department Care Team Description 02/14/2024 Orders Only Medical Records [address] [place] [address] Linda Melgar, SHARK BIOLOGIST Social History Tobacco Use Types Packs/Day Years Used Date Smoking Tobacco: Former Alcohol Use Standard Drinks/Week Comments Not Asked 0 (1 standard drink = 0.6 oz pur e alcohol) Sex Assigned at Date Recorded Not on file documented as of this encounter Plan of Treatment Not on file documented as of this encounter Procedures Procedure Name Priority Date/Time Associated Diagnosis Comments OUTSIDE CT Routine 01/13/2024 documented in this encounter Results * OUTSIDE CT (01/13/2024) Linda Melgar SHARK BIOLOGIST RADIOLOGY documented in this encounter Visit Diagnoses Not on filedocumented in this encounter Care Teams Guest History Clerk Relationship Specialty Start Date End Date Buddy Morrow PCP - General Internal Medicine 07/25/12 Linda Melgar, SHARK BIOLOGIST Specialist Gastroenterology 04/18/24 Nancy Lopez MD Specialist Thoracic Surgery 04/18/24 Slava Hernández PA-C [address] [place] [phone] Specialist Thoracic Surgery 05/30/24 documented as of this encounter
--- OUTSIDE RECORDS SUMMARY | 2025-02-12 14:49 | XMS_ITS | Encounter Summary ---
Author Organization [facility] Address [address] [place] [address] Care Team Providers Care Gauge And Weigh Machine Operator Name Role Phone Buddy Morrow Primary Care Provider Unavailabl e Linda Melgar FINANCE OFFICER Unavailable Unavailable Nancy Lopez MD Unavailable Slava Hernández PA-C Unavailable [phone] Encounter Details Date Type Department Care Team Description 01/04/2024 Hospital Medical Records [address] [place] [address] Destin Villalba MD Social History Tobacco Use [...] on filedocumented in this encounter Care Teams Gauge And Weigh Machine Operator Relationship Specialty Start Date End Date Buddy Morrow PCP - General Internal Medicine 07/25/12 Linda Melgar FINANCE OFFICER Specialist Gastroenterology 04/18/24 Nancy Lopez MD Specialist Thoracic Surgery 04/18/24 Slava Hernández PA-C [address] [place] [phone] Specialist Thoracic Surgery 05/30/24 documented as of this encounter
--- OUTSIDE RECORDS SUMMARY | 2025-02-12 14:50 | XMS_ITS | Encounter Summary ---
Author Organization [facility] Address [address] [place] [address] Care Team Providers Care Tennis Ball Cover Cementer Name Role Phone Buddy Morrow Primary Care Provider Unavailabl e Linda Melgar SENIOR SALES MANAGER Unavailable Unavailable Nancy Lopez MD Unavailable Slava Hernández PA-C Unavailable [phone] Encounter Details Date Type Department Care Team Description 04/13/2024 [facility] Thoracic Surgery [address] [phone] Nancy Lopez MD [address] [id number] Social History Tobacco Use Types Packs/Day Years Used Date Smoking Tobacco: Former Alcohol Use Standard Drinks/Week Comments Not Asked 0 (1 standard drink = 0.6 oz pur e alcohol) Sex Assigned at Date Recorded Not on file documented as of this encounter Plan of Treatment Not on file documented as of this encounter Visit Diagnoses Not on filedocumented in this encounter Care Teams Tennis Ball Cover Cementer Relationship Specialty Start Date End Date Buddy Morrow PCP - General Internal Medicine 07/25/12 Linda Melgar, SENIOR SALES MANAGER Specialist Gastroenterology 04/18/24 Nancy Lopez MD Specialist Thoracic Surgery 04/18/24 Slava Hernández PA-C [address] [phone] Specialist Thoracic Surgery 05/30/24 documented as of this encounter
--- OUTSIDE RECORDS SUMMARY | 2025-02-12 14:50 | XMS_ITS | Patient Health Record ---
[facility] Address [address] [facility] [place] [address] Care Team Providers Care Material Controller Name Role Phone Buddy Morrow MD Primary Care Provider Benjamin Skelton Unavailable [phone] Allergies Allergen (clinical drug ingredient) Drug/Non Drug [...] Problem Acquired hammer toe of right foot (8706477879648051 ) Other hammer toe(s) (acquired), right foot (M20.41) Active confirmed Response to treatment, Improvemen t Problem Acquired hammer toe of left foot (3051306310992967 ) Other hammer toe(s) (acquired), left foot (M20.42) Active confirmed Response to treatment, Improvemen t Problem Polyneuropathy due to diabetes mellitus type I (564076938) 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 confirmed Vital Signs Blood pressure diastolic 70 mm Hg 01/15/2025 Height 5ft4in in 01/15/2025 Blood pressure systolic 103 mm Hg 01/15/2025 Weight 200 lbs 01/15/2025 BMI 34.33 kg/m2 01/15/2025 Procedures Procedure Date Ordered Date Performed Result Body Sit e 39732-GYLGVJF NAIL, 6 OR MORE 03/27/2024 N/A 06512-FFCR SKIN LESIONS, OVER 4 03/27/2024 N/A 25803-MZDGAYC NAIL, 6 OR MORE 06/26/2024 N/A 21510-KCEW SKIN LESIONS, OVER 4 06/26/2024 N/A 41938-RPWPYPE NAIL, 6 OR MORE 10/09/2024 N/A 13865-FMGO SKIN LESIONS, OVER 4 10/09/2024 N/A 22936-ZDEJXWX NAIL, 6 OR MORE 01/15/2025 N/A 51473-JELJ SKIN LESIONS, OVER 4 01/15/2025 N/A Encounters Encounter Location Date Provider Diagnosis [address] [address] 03/27/2024 Benjamin Leti Type 1 diabetes mellitus with diabetic polyneuropathy E10.42 and Tinea unguium B35.[address] [address] 06/26/2024 Benjamin Leti Type 1 diabetes mellitus with diabetic polyneuropathy E10.42 ; Tinea unguium B35.1 ; Other hammer toe(s) (acquired), right foot M20.41 and Other hammer toe(s) (acquired), left foot M20.[address] [address] 10/09/2024 Benjamin Leti Type 1 diabetes mellitus with diabetic polyneuropathy E10.42 and Tinea unguium B35.[address] [address] 01/15/2025 Benjamin Leti Type 1 diabetes mellitus [...] 02/11/2015 Hemoglobin A1c 12/02/2015 Hemoglobin A1c 06/03/2017 36861-WPQPITJ NAIL, 6 OR MORE 10/09/2024 75501-MSHFRFM NAIL, 6 OR MORE 01/15/2025 71598-ONTEOAW NAIL, 6 OR MORE 09/12/2020 24023-BVRRJRW NAIL, 6 OR MORE 12/12/2020 23981-JOEWBZH NAIL, 6 OR MORE 03/13/2021 71854-NHOEUIR NAIL, 6 OR MORE 06/12/2021 88082-OLEBMCZ NAIL, 6 OR MORE 09/18/2021 79199-MKUWXSJ NAIL, 6 OR MORE 12/18/2021 76192-POUHUCQ NAIL, 6 OR MORE 03/23/2022 27187-FQIEQQK NAIL, 6 OR MORE 06/25/2022 71103-JSPMFNA NAIL, 6 OR MORE 09/24/2022 41667-YFAXTDH NAIL, 6 OR MORE 12/24/2022 98027-CIMUKWC NAIL, 6 OR MORE 03/25/2023 21732-TLUMOQF NAIL, 6 OR MORE 06/24/2023 14014-ORQNMCV NAIL, 6 OR MORE 09/27/2023 15179-UNCXGHP NAIL, 6 OR MORE 12/27/2023 33574-SKVWBKI NAIL, 6 OR MORE 03/27/2024 27837-KOQOWNL NAIL, 6 OR MORE 06/26/2024 08167-HZGMSBG NAIL, 6 OR MORE 08/22/2015 15871-QYUXMRO NAIL, 6 OR MORE 05/16/2015 89497-TMJGMKN NAIL, 6 OR MORE 02/11/2015 78878-TOVJGUG NAIL, 6 OR MORE 11/02/2013 26705-PXRYPJF NAIL, 6 OR MORE 02/01/2014 27618-PNWKOET NAIL, 6 OR MORE 05/10/2014 07217-HPZMIYK NAIL, 6 OR MORE 08/13/2014 14324-MCNADZL NAIL, 6 OR MORE 11/12/2014 39164-EZNANAN NAIL, 6 OR MORE 07/27/2011 49458-CKCAUVE NAIL, 6 OR MORE 10/15/2011 87921-GZLYPZF NAIL, 6 OR MORE 01/14/2012 47893-TBLINMM NAIL, 6 OR MORE 04/11/2012 24491-BOYZITO NAIL, 6 OR MORE 07/28/2012 89824-CXLYBBP NAIL, 6 OR MORE 10/13/2012 84313-JZBTBRI NAIL, 6 OR MORE 01/12/2013 46237-UOTLHZJ NAIL, 6 OR MORE 04/13/2013 19684-TQKKUEA NAIL, 6 OR MORE 08/03/2013 40518-GAXXDPU NAIL, 6 OR MORE 12/02/2015 00317-HOULSBW NAIL, 6 OR MORE 03/02/2016 46851-QTPDAWI NAIL, 6 OR MORE 06/11/2016 03371-BYZFMND NAIL, 6 OR MORE 09/10/2016 14867-ZEPJBCB NAIL, 6 OR MORE 12/10/2016 69674-KUVTBLQ NAIL, 6 OR MORE 03/04/2017 17917-DSMTYDD NAIL, 6 OR MORE 06/07/2017 65151-SVERSHE NAIL, 6 OR MORE 09/06/2017 61879-NTGFIMC NAIL, 6 OR MORE 12/09/2017 29530-KKWRYNS NAIL, 6 OR MORE 03/10/2018 42408-MGNSUOE NAIL, 6 OR MORE 06/13/2018 46502-AJUCFEU NAIL, 6 OR MORE 09/12/2018 70581-URSGISR NAIL, 6 OR MORE 12/26/2018 44846-MZYIZYC NAIL, 6 OR MORE 03/27/2019 39511-DNWTSSE NAIL, 6 OR MORE 06/26/2019 47637-GMWWWRD NAIL, 6 OR MORE 09/25/2019 87894-SBQCBHT NAIL, 6 OR MORE 12/25/2019 97044-MKSHXRS NAIL, 6 OR MORE 06/13/2020 96256- Debride <25 sq cm 08/03/2013 29119-YWLN SKIN LESIONS, OVER 4 11/02/20 13 65160-CKDZ SKIN LESIONS, OVER 4 11/12/20 14 23461-RACK SKIN LESIONS, OVER 4 08/13/20 14 80011-GBTQ SKIN LESIONS, OVER 4 05/10/20 14 86976-AEVH SKIN LESIONS, OVER 4 02/02/20 14 71547-TMKO SKIN LESIONS, OVER 4 02/12/20 15 99589-QRNB SKIN LESIONS, OVER 4 05/16/20 15 69913-DTPP SKIN LESIONS, OVER 4 08/22/20 15 39681-HRZF SKIN LESIONS, OVER 4 12/02/19 16 67598-BLHY SKIN LESIONS, OVER 4 06/13/20 20 35411-XEXA SKIN LESIONS, OVER 4 12/25/19 20 80863-WJJZ SKIN LESIONS, OVER 4 09/25/20 19 96897-OCBS SKIN LESIONS, OVER 4 06/26/20 19 58632-TEMU SKIN LESIONS, OVER 4 03/27/20 19 32655-KMAN SKIN LESIONS, OVER 4 12/26/19 19 60762-CIWZ SKIN LESIONS, OVER 4 09/12/20 18 89348-RBJQ SKIN LESIONS, OVER 4 06/13/20 18 18592-TXIG SKIN LESIONS, OVER 4 03/10/20 18 24919-TPOA SKIN LESIONS, OVER 4 12/09/19 18 18793-MVNT SKIN LESIONS, OVER 4 09/06/20 17 16886-JETN SKIN LESIONS, OVER 4 03/04/20 17 98187-AYDH SKIN LESIONS, OVER 4 06/07/20 17 21392-FZFA SKIN LESIONS, OVER 4 12/10/19 17 24471-CFVO SKIN LESIONS, OVER 4 09/10/20 16 10391-HRPP SKIN LESIONS, OVER 4 06/11/20 16 77566-GQZE SKIN LESIONS, OVER 4 03/02/20 16 00196-FWZZ SKIN LESIONS, OVER 4 06/26/20 24 44382-LYKR SKIN LESIONS, OVER 4 03/27/20 24 43259-HOEZ SKIN LESIONS, OVER 4 12/27/19 24 24679-OUAC SKIN LESIONS, OVER 4 09/27/20 23 76910-MTIB SKIN LESIONS, OVER 4 06/24/20 12625-BJAA SKIN LESIONS, OVER 4 03/25/20 94383-ZLMV SKIN LESIONS, OVER 4 12/24/19 23 60532-UOVX SKIN LESIONS, OVER 4 09/24/20 71833-CFVP SKIN LESIONS, OVER 4 06/25/20 46469-ZWKN SKIN LESIONS, OVER 4 03/23/20 99258-EVQT SKIN LESIONS, OVER 4 12/18/19 66601-TWQC SKIN LESIONS, OVER 4 09/18/20 94486-WKMV SKIN LESIONS, OVER 4 06/12/20 68568-WZMC SKIN LESIONS, OVER 4 03/13/20 82762-QOCQ SKIN LESIONS, OVER 4 12/12/19 21 05717-EXRS SKIN LESIONS, OVER 4 09/12/20 07605-WEAH SKIN LESIONS, OVER 4 01/15/20 25 60429-FBSE SKIN LESIONS, OVER 4 10/09/20 24 49223-XHWY SKIN LESIONS, 2 TO 4 07/27/20 11 27847-EQWW SKIN LESIONS, 2 TO 4 04/13/20 13 95345-BTHP SKIN LESIONS, 2 TO 4 01/12/20 13 11466-BBVN SKIN LESIONS, 2 TO 4 10/13/20 12 27816-ZPEL SKIN LESIONS, 2 TO 4 07/28/20 12 49451-CEWS SKIN LESIONS, 2 TO 4 04/11/20 12 70846-QBHG SKIN LESIONS, 2 TO 4 01/14/20 12 81088-KZGK SKIN LESIONS, 2 TO 4 10/15/20 11 HEMOGLOBIN A1C (GLYCOHEMOGLOBIN) 020 Next Appt Details Provider Name:Benjamin Andersen Leti , 04/23/2025 01:30:00 PM, [address] [place] [address], [place], [address], Insurance Providers Payer Name Payer Address Payer Phone Subscriber Number Group Number Insured Name Patient Relationship to Insured Coverage Start Date Coverage End Date [employer] Medicare Adv-19737 [address] [address] [place] [address] [id number] Miriam Henry Self - patient is the insured [facility] Claims [facility] Office of Community Care [address] [address] [place] [address] [id number] Miriam Henry Self - patient is the [...] [facility], [facility]17[facility]24 [facility] Hern[facility] flare up 02/27/2021 [facility]- Hiatal hernia flare up 05/21/19
--- OUTSIDE RECORDS SUMMARY | 2025-02-12 14:50 | XMS_ITS | Encounter Summary ---
Author Organization [facility] Address [address] [place] [address] Care Team Providers Care Polymer Specialist Name Role Phone Buddy Morrow Primary Care Provider Unavailabl e Linda Melgar TNT LINE SUPERVISOR Unavailable Unavailable Nancy Lopez MD Unavailable Slava Hernández PA-C Unavailable [phone] Encounter Details Date Type Department Care Team Description 05/18/2024 Orders Only Medical Records [address] [place] [address] Slava Hernández PA-C [address] [phone] Social History Tobacco Use Types Packs/Day Years Used Date Smoking Tobacco: Former Alcohol Use Standard Drinks/Week Comments Not Asked 0 (1 standard drink = 0.6 oz pur e alcohol) Sex Assigned at Date Recorded Not on file documented as of this encounter Plan of Treatment Not on file documented as of this encounter Procedures Procedure Name Priority Date/Time Associated Diagnosis Comments OUTSIDE BARIUM SWALLOW Routine 05/18/2024 documented in this encounter Results * OUTSIDE BARIUM SWALLOW (05/18/2024) Slava Hernández PA-C RADIOLOGY documented in this encounter Visit Diagnoses Not on filedocumented in this encounter Care Teams Polymer Specialist Relationship Specialty Start Date End Date Buddy Morrow PCP - General Internal Medicine 07/25/12 Linda Melgar, TNT LINE SUPERVISOR Specialist Gastroenterology 04/18/24 Nancy Lopez MD Specialist Thoracic Surgery 04/18/24 Slava Hernández PA-C [address] [place] [phone] Specialist Thoracic Surgery 05/30/24 documented as of this encounter
--- OUTSIDE RECORDS SUMMARY | 2025-02-12 14:50 | XMS_ITS ---
Author [facility] Address [address] [facility] [place], [place] [address] Care Team Providers Care Roller Varnisher Name Role Phone Buddy Morrow MD Primary Care Provider Benjamin Skelton Unavailable [phone] Allergies Allergen (clinical drug ingredient) Drug/Non Drug [...] Ordered Date Performed Result Body Sit e 80515-AUCRJXL NAIL, 6 OR MORE 10/09/2024 N/A 76327-YXJE SKIN LESIONS, OVER 4 10/09/2024 N/A Encounters Encounter Location Date Provider Diagnosis [facility] [address] [address] 10/09/2024 Benjamin Landeros Type 1 diabetes mellitus with diabetic polyneuropathy E10.42 and Tinea unguium B35.1 Assessments Encounter Date Diagnosis (ICD Code) Assessment Notes Treatment Notes Treatment Clinical Notes Section Notes 10/09/2024 Type 1 diabetes mellitus with diabetic polyneuropathy (ICD-10 - E10.42) 10/09/2024 Tinea unguium (ICD-10 - B35.1) 10/09/2024 Other Plan Of Treatment Pending Test Test Name Order Date 85514-KTLIJUY NAIL, 6 OR MORE 10/09/2024 70894-UGVM SKIN LESIONS, OVER 4 10/09/20 24 Next Appt Details Follow Up: prn, Reason: Provider Name:Benjamin Landeros , 04/23/2025 01:30:00 PM, [address] [place] [address], [phone], Procedure Notes * Category Sub-Category Detail Notes [...] use of a nail nipper and/or dremel-type grinder dresser, to a more viable healthy nail plate or bed tissue 6-10. Silver nitrate used for any petechial bleeding as necessary. Definitive antifungal treatment options have been reviewed and discussed with the patient. The patient chooses, no pharmaceutical tx - 97226 Keratoma Treatment Parring or Cutting o f Benign Hyperkeratotic Lesion(s) (-57) More than 4 Lesions - The Benign hyperkeratotic lesions, as described in exam, were pared, and/or cut utilizing a sterile 15 blade, tissue nippers, and/or dremel - 24517 Progress Notes * Miriam NOGUEIRA JDOB: (74 yo F)Acc No.[id number]:10/09/2024 Progress Note Patient:?ROLANDOODILIA Tammie yonathan Ward Provider:?Benjamin Landeros DPM :1950???Age:74 Y???Sex:Female D ate:10/09/2024 Address:[facility] [address], [facility] Pcp:Buddy Morrow MD Subjective: * Chief Complaints: [...] ?Marital status: . 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 * Medications:?TakingPantopraz ole Sodium 40 MG Tablet [...] use of a nail nipper and/or dremel-type grinder dresser, to a more viable healthy nail plate or bed tissue 6-10. Silver nitrate used for any petechial bleeding as necessary. Definitive antifungal treatment options have been reviewed and discussed with the patient. The patient chooses, no pharmaceutical tx - 64058.?Keratoma Treatment:?Parring or Cutting of Benign Hyperkeratotic Lesion(s)?(-57) More than 4 Lesions - The Benign hyperkeratotic lesions, as described in exam, were pared, and/or cut utilizing a sterile 15 blade, tissue nippers, and/or dremel - 66442.? * Procedure Codes:?82065 DEBRI DE NAIL, 6 OR MORE, Modifiers: XS 33474 TRIM SKIN LESIONS, OVER 4, Modifiers: XS * Follow Up:?prn * Images: * Sign off status: Completed true * Provider:?Benjamin Landeros DPM Date:?2023 Generated for Stephanie smith/Jareth/Ania on:?02/12/2025 02:49 PM EDT History and Physical [...]
--- OUTSIDE RECORDS SUMMARY | 2025-02-12 14:50 | XMS_ITS | Encounter Summary ---
Author Organization [facility] Address [address] [place] [address] Care Team Providers Care Supervisor Elementary Education Name Role Phone Buddy Morrow Primary Care Provider Unavailabl e Linda Melgar TOLL PATROLMAN Unavailable Unavailable Nancy Lopez MD Unavailable Slava Hernández PA-C Unavailable [phone] Encounter Details Date Type Department Care Team Description 05/17/2024 Hospital Medical Records [address] [place], [place] [phone] [place] [address] Social History Tobacco Use Types Packs/Day Years Used Date Smoking Tobacco: Former Alcohol Use Standard Drinks/Week Comments Not Asked 0 (1 standard drink = 0.6 oz pur e alcohol) Sex Assigned at Date Recorded Not on file documented as of this encounter Plan of Treatment Not on file documented as of this encounter Visit Diagnoses Not on filedocumented in this encounter Care Teams Supervisor Elementary Education Relationship Specialty Start Date End Date Buddy Morrow PCP - General Internal Medicine 07/25/12 Linda Melgar, TOLL PATROLMAN Specialist Gastroenterology 04/18/24 Nancy Lopez MD Specialist Thoracic Surgery 04/18/24 Slava Hernández PA-C [address] [place] [phone] Specialist Thoracic Surgery 05/30/24 documented as of this encounter
--- OUTSIDE RECORDS SUMMARY | 2025-02-12 14:50 | XMS_ITS ---
Author Organization [facility] Address [address] [facility] [place] [address] Care Team Providers Care Aged Or Disabled Carer Name Role Phone Buddy Morrow MD Primary Care Provider Benjamin Skelton Unavailable [phone] Allergies Allergen (clinical drug ingredient) Drug/Non Drug [...] Ordered Date Performed Result Body Sit e 50463-MCLDJET NAIL, 6 OR MORE 06/26/2024 N/A 61257-LMZM SKIN LESIONS, OVER 4 06/26/2024 N/A Encounters Encounter Location Date Provider Diagnosis [facility] [place] [address] [place] [address] 06/26/2024 Benjamin Landeros Type 1 diabetes mellitus [...] INSTRUCTIONS.pdf) Pending Test Test Name Order Date 38551-TZECCQT NAIL, 6 OR MORE 06/26/2024 93933-PVWI SKIN LESIONS, OVER 4 06/26/20 24 Next Appt Details Follow Up: prn, Reason: Provider Name:Benjamin Landeros , 04/23/2025 01:30:00 PM, [address] [place], [address], Procedure Notes * Category Sub-Category Detail Notes [...] as necessary. Patient chooses, no pharmaceutical tx (70538) Keratoma Treatment Parring or Cutting o f Benign Hyperkeratotic Lesion(s) 88910 ( >4 Lesions) - The Benign hyperkeratotic lesions, as described above were pared, and/or cut utilizing a sterile #15 blade, tissue nippers, and/or dremel Progress Notes * iMriam NOGUEIRA JDOB: (73 yo F)Acc No.[id number]:06/26/2024 Progress Note Patient:?Tammie Nogueira Provider:?Benjamin Landeros DPM :1950???Age:73 Y???Sex:Female D ate:06/26/2024 Address[address], [place] Pcp:Buddy Morrow MD Subjective: * Chief Complaints: [...] ?Marital status: . 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 * Medications:?TakingPantopraz ole Sodium 40 MG Tablet [...] 2.?Type 1 diabetes mellitus with diabetic polyneuropathy?Procedure: 23195-MOXJUMQ NAIL, 6 OR MORE ?Procedure: 71358-CRSH SKIN LESIONS, OVER 4 * Procedures:?Debride Nail 6-10:?Nail debridement?Nail debridement performed extensively to reduce/remove overall nail length, girth, thickness, subungual debris, and necrotic tissue, by manual and electrical means through the use of a nail nipper and/or dremel, to more viable healthy nail plate or bed tissue 1-5. Silver nitrate used for any petechial bleeding as necessary. Patient chooses, no pharmaceutical tx (81982).?Keratoma Treatment:?Parring or Cutting of Benign Hyperkeratotic Lesion(s)?67185 ( >4 Lesions) - The Benign hyperkeratotic lesions, as described above were pared, and/or cut utilizing a sterile #15 blade, tissue nippers, and/or dremel.? * Procedure Codes:?83842 DEBRI DE NAIL, 6 OR MORE, Modifiers: XS 96776 TRIM SKIN LESIONS, OVER 4, Modifiers: XS [...] Landeros DPM Date:?2023 Generated for Stephanie smith/Jareth/Elitting on:?02/12/2025 02:50 PM EDT History and Physical Notes * [...]
== END 2025-02-12 12:37 | disposition home or self-care (01) ==
LOC: HO.HMGCX 12:36
PROVIDERS: PCP Internal Medicine; Visit Provider Obstetrics & Gynecology
DX: N95.0 Postmenopausal bleeding (principal)
CPT/HCPCS: 76830; 76856

== ENCOUNTER → 2025-02-12 12:43 | Outpatient (BNV) | payer MEDICARE, OTHER, SELFPAY | PROVIDERS: PCP Internal Medicine; Visit Provider Radiology Vascular & Interventional Radiology | DX: N85.00 Endometrial hyperplasia, unspecified (principal); D25.1 Intramural leiomyoma of uterus | CPT/HCPCS: 76830; 76856 ==

== ENCOUNTER 2025-02-19 10:45 | Outpatient (REF) | payer MEDICARE, OTHER, SELFPAY | END 2025-02-19 10:46 | disposition home or self-care (01) | LOC: HO.LNP 10:45 | PROVIDERS: PCP Internal Medicine; Visit Provider Obstetrics & Gynecology | DX: N95.0 Postmenopausal bleeding (principal) | CPT/HCPCS: 58100; 88305; 88341; 88342; 99212 ==

== ENCOUNTER 2025-02-19 10:45 | Outpatient (AMB) | payer MEDICARE, OTHER, SELFPAY ==
--- NOTE | 2025-02-19 10:56 | MHC.OFFVIS ---
Vital Signs 02/19/25 10:59 Height 5 ft 4 in Weight 202 lb BMI 34.7 Intake Visit Reasons: ultrasound results Airplane Flight Attendant Required: No Information Interpreted: non-clinical & clinical Facial Operator: Facial Operator Present (Melania QUIROS) Accompanied by: Self / Same As Patient Allergies hydrocodone [From VICODIN] Allergy (Unknown, Verified 02/19/25 10:59) HEADACHE oxycodone [OXYCODONE] Allergy (Unknown, Verified 02/19/25 10:59) HIVES procaine [From NOVOCAIN] Allergy (Unknown, Verified 02/19/25 10:59) FAINTED Post menopausal: Yes HPI Comments Details: Presenting for ultrasound follow-up done recently which showed the following: Transvaginal scanning performed. The uterus is 7.9 cm in length and is mildly anteverted. 14 mm calcified fibroid, otherwise normal myometrium. Abnormally thickened endometrium at 25 mm thickness. Right ovary 2.0 x 1.5 x 1.7 cm. Left ovary 2.5 x 1.6 x 1.4 cm. Normal color Doppler of both ovaries. No free fluid. 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 Diabetes type 2, uncontrolled Surgical History History of abdominal paracentesis History of esophagogastroduodenoscopy (EGD) History of colonoscopy History of repair of hiatal hernia History of cardiac catheterization Hx of hammer toe correction Hx of shoulder surgery Hx of tonsillectomy Hx laparoscopic cholecystectomy Hx of appendectomy Family History Brother Diabetes Father Lung cancer Mother HTN (hypertension) Social History Household Members: Family Housing: House Are you a primary healthcare associate to a significant other at home: No Do you presently have visiting nurse or other home services: No Alcohol intake: current Alcohol intake frequency: holidays/special occasions only Patient Tobacco Use Status: Former Tobacco user Tobacco use type: Cigarette Years Smoked: 20 e-Cigarette/Vaping Use: Never Used Second Hand Smoke Exposure: Yes service: No Current occupational status: retired Cognitive needs: No Hearing needs: No Vision needs: Yes (Glasses) Review of Systems Const All systems reviewed & are unremarkable except as noted in HPI and below Reports as per HPI and Reports no additional complaints GI Reports no additional complaints Reports no additional complaints Physical Exam Vital Signs: BMI result Body Mass Index 34.7 Office Procedures Endometrial Biopsy Details: The patient was counseled regarding the indication and benefits of endometrial sampling to rule out endometrial pathology including not limited to endometrial hyperplasia or endometrial cancer and others; The alternatives (Either do nothing vs. hysteroscopy D&C) & the risks were discussed with the patient including but not limited: pain, uterine perforation, bleeding, infection, possible injury to bladder, bowel, ureter, possible need for blood transfusion with all its possible risks. The patient verbalized understanding all questions answered and signed consent. The patient was placed into the dorsal lithotomy position; a speculum was inserted in the vagina. Using aseptic technique for the procedure, the cervix was cleansed with Betadine. The anterior lip of the cervix was grasped with a single tooth tenaculum. The uterus was sounded to 7 cm with a 4 mm Pipelle was used. Tissues samples were obtained and placed in formalin, in a patient labeled container and sent to the pathology department. At the end of the procedure, there was minimal bleeding noted The patient tolerated the procedure well and was discharged in good condition with the following instructions: Nothing in the vagina until the bleeding stops. No sex until the bleeding stops, to call if any of the following occurs: fever (>100.4), flu-like symptoms, abdominal pain, heavy bleeding, four smelling vaginal discharge. The patient was instructed to schedule a Follow up appointment in 2 weeks to discuss pathology results of the biopsy and treatment options. This note was generated with a voice recognition program. Some errors may have been overlooked during the review of this note. Sometimes these errors may affect the content or meaning of a given sentence. 34870-Gsvpemtmfrk Biopsy Assessment & Plan Assessment & Plan (1) Postmenopausal bleeding: Code(s): N95.0 - Postmenopausal bleeding Category: Medical Plan: Discussed with the patient the pelvic ultrasound findings, the endometrial stripe thickenss an abnormal measured by ultrasound was more than 4mm. The negative predictive value, positive predictive value, Sensitivity, specificity of using ultrasound measurement of endometrial stripe to detecting endometrial pathology including hyperplasia , polyp or cancer were discussed with the patient. Recommended to the patient that the next step is an endometrial sampling via hysteroscopy D&C possible polypectomy versus endometrial biopsy to r/o endometrial pathology including hyperplasia or cancer. All the pros and cons risks and benefits of each approach were discussed with the patient, endometrial biopsy being less invasive, office procedure with less sensitivity and inability diagnose a polyp and removal versus hysteroscopy done under anesthesia more invasive more sensitive to endometrial cancer and possibility of diagnosing and endometrial polyp with the possibility of polypectomy. All questions were answered pt verbalized understanding and decided to proceed with endometrial biopsy. EMB done, see procedure note Orders: Orders AMB Endometrial Biopsy Today N95.0 - Postmenopausal bleeding Coding Level of Care Code Est Pt Level 3 (88671) Procedure Only Diagnoses Postmenopausal bleeding N95.0 CPT Codes Endometrial Biopsy - CPT: 36052-Ikaockljneh Biopsy ([id number])
[2025-02-19 10:59] VITALS: BMI 34.7
--- OUTSIDE RECORDS SUMMARY | 2025-02-19 13:01 | XMS_ITS | Encounter Summary ---
Author Organization [facility] Address [address] [place] [address] Care Team Providers Care Manual Lathe Machinist Name Role Phone Buddy Morrow Primary Care Provider Unavailabl e Linda Melgar INTRANET SUPPORT Unavailable Unavailable Nancy Lopez MD Unavailable Slava Hernández PA-C Unavailable [phone] Encounter Details Date Type Department Care Team Description 04/13/2024 SCAN [facility] Thoracic Surgery [address] [phone] Nancy Lopez MD [address] [id number] Social History Tobacco Use Types Packs/Day Years Used Date Smoking Tobacco: Former Alcohol Use Standard Drinks/Week Comments Not Asked 0 (1 standard drink = 0.6 oz pur e alcohol) Sex Assigned at Date Recorded Not on file documented as of this encounter Plan of Treatment Not on file documented as of this encounter Visit Diagnoses Not on filedocumented in this encounter Care Teams Manual Lathe Machinist Relationship Specialty Start Date End Date Buddy Morrow PCP - General Internal Medicine 07/25/12 Linda Melgar, INTRANET SUPPORT Specialist Gastroenterology 04/18/24 Nancy Lopez MD Specialist Thoracic Surgery 04/18/24 Slava Hernández PA-C [address] [address] Specialist Thoracic Surgery 05/30/24 documented as of this encounter
--- OUTSIDE RECORDS SUMMARY | 2025-02-19 13:01 | XMS_ITS ---
Author Organization [facility] Address [address] [facility] [place] [address] Care Team Providers Care Fishing Line Winding Machine Operator Name Role Phone Buddy Morrow MD Primary Care Provider Benjamin Skelton Unavailable [phone] Allergies Allergen (clinical drug ingredient) Drug/Non Drug [...] Ordered Date Performed Result Body Sit e 45043-NYLSPDZ NAIL, 6 OR MORE 06/26/2024 N/A 08199-YQCM SKIN LESIONS, OVER 4 06/26/2024 N/A Encounters Encounter Location Date Provider Diagnosis [facility] [place] [address] [place] [address] 06/26/2024 Benjamin Landeros Type 1 diabetes mellitus [...] INSTRUCTIONS.pdf) Pending Test Test Name Order Date 24679-BPXNZKL NAIL, 6 OR MORE 06/26/2024 54820-FWDC SKIN LESIONS, OVER 4 06/26/20 24 Next Appt Details Follow Up: prn, Reason: Provider Name:Benjamin Landeros , 04/23/2025 01:30:00 PM, [address] [place], [address], Procedure Notes * Category Sub-Category Detail Notes [...] as necessary. Patient chooses, no pharmaceutical tx (71645) Keratoma Treatment Parring or Cutting o f Benign Hyperkeratotic Lesion(s) 06349 ( >4 Lesions) - The Benign hyperkeratotic lesions, as described above were pared, and/or cut utilizing a sterile #15 blade, tissue nippers, and/or dremel Progress Notes * Miriam NOGUEIRA JDOB: (73 yo F)Acc No.[id number]:06/26/2024 Progress Note Patient:?Tammie Nogueira Provider:?Benjamin Landeros DPM :1950???Age:73 Y???Sex:Female D ate:06/26/2024 Address:[address], [id number] Pcp:Buddy Morrow MD Subjective: * Chief Complaints: [...] ?Marital status: . 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 * Medications:?TakingPantopraz ole Sodium 40 MG Tablet [...] 2.?Type 1 diabetes mellitus with diabetic polyneuropathy?Procedure: 92156-EPNIXIN NAIL, 6 OR MORE ?Procedure: 92867-UCIX SKIN LESIONS, OVER 4 * Procedures:?Debride Nail 6-10:?Nail debridement?Nail debridement performed extensively to reduce/remove overall nail length, girth, thickness, subungual debris, and necrotic tissue, by manual and electrical means through the use of a nail nipper and/or dremel, to more viable healthy nail plate or bed tissue 1-5. Silver nitrate used for any petechial bleeding as necessary. Patient chooses, no pharmaceutical tx (26908).?Keratoma Treatment:?Parring or Cutting of Benign Hyperkeratotic Lesion(s)?03132 ( >4 Lesions) - The Benign hyperkeratotic lesions, as described above were pared, and/or cut utilizing a sterile #15 blade, tissue nippers, and/or dremel.? * Procedure Codes:?78421 DEBRI DE NAIL, 6 OR MORE, Modifiers: XS 57362 TRIM SKIN LESIONS, OVER 4, Modifiers: XS [...] Landeros DPM Date:?2023 Generated for Stephanie smith/Jareth/Elitting on:?02/19/2025 01:01 PM EDT History and Physical Notes * [...]
--- OUTSIDE RECORDS SUMMARY | 2025-02-19 13:01 | XMS_ITS | Encounter Summary ---
Author Organization [facility] Address [address] [place] [address] Care Team Providers Care Hcc Coders Name Role Phone Buddy Morrow Primary Care Provider Unavailabl e Linda Melgar PROSPECT MANAGER Unavailable Unavailable Nancy Lopez MD Unavailable Slava Hernández PA-C Unavailable [phone] Encounter Details Date Type Department Care Team Description 02/14/2024 Orders Only Medical Records [address] [place] [address] Linda Melgar, PROSPECT MANAGER Social History Tobacco Use Types Packs/Day Years [...] Results * OUTSIDE CT (01/13/2024) Linda Melgar PROSPECT MANAGER RADIOLOGY documented in this encounter Visit Diagnoses Not on filedocumented in this encounter Care Teams Hcc Coders Relationship Specialty Start Date End Date Buddy Morrow PCP - General Internal Medicine 07/25/12 Linda Melgar, PROSPECT MANAGER Specialist Gastroenterology 04/18/24 Nancy Lopez MD Specialist Thoracic Surgery 04/18/24 Slava Hernández PA-C [address] [place] [phone] Specialist Thoracic Surgery 05/30/24 documented as of this encounter
--- OUTSIDE RECORDS SUMMARY | 2025-02-19 13:01 | XMS_ITS ---
Author Organization [facility] Address [address] [facility] [place], [place] [address] Care Team Providers Care Strategy Specialist Name Role Phone Buddy Morrow MD Primary Care Provider Benjamin Skelton Unavailable [phone] Allergies Allergen (clinical drug ingredient) Drug/Non Drug [...] Ordered Date Performed Result Body Sit e 18378-YRAGWAK NAIL, 6 OR MORE 10/09/2024 N/A 64771-KQBS SKIN LESIONS, OVER 4 10/09/2024 N/A Encounters Encounter Location Date Provider Diagnosis [facility] [address] [address] 10/09/2024 Benjamin Landeros Type 1 diabetes mellitus with diabetic polyneuropathy E10.42 and Tinea unguium B35.1 Assessments Encounter Date Diagnosis (ICD Code) Assessment Notes Treatment Notes Treatment Clinical Notes Section Notes 10/09/2024 Type 1 diabetes mellitus with diabetic polyneuropathy (ICD-10 - E10.42) 10/09/2024 Tinea unguium (ICD-10 - B35.1) 10/09/2024 Other Plan Of Treatment Pending Test Test Name Order Date 56946-GVGCZHN NAIL, 6 OR MORE 10/09/2024 99391-ACZZ SKIN LESIONS, OVER 4 10/09/20 24 Next Appt Details Follow Up: prn, Reason: Provider Name:Benjamin Landeros , 04/23/2025 01:30:00 PM, [address] [place] [address], [phone], Procedure Notes * Category Sub-Category Detail Notes [...] of a nail nipper and/or dremel-type grinder machine knife setter, to a more viable healthy nail plate or bed tissue 6-10. Silver nitrate used for any petechial bleeding as necessary. Definitive antifungal treatment options have been reviewed and discussed with the patient. The patient chooses, no pharmaceutical tx - [address]36 Keratoma Treatment Parring or Cutting o f Benign Hyperkeratotic Lesion(s) (-57) More than 4 Lesions - The Benign hyperkeratotic lesions, as described in exam, were pared, and/or cut utilizing a sterile 15 blade, tissue nippers, and/or dremel - 53161 Progress Notes * Miriam NOGUEIRA JDOB: (74 yo F)Acc No.[id number]:10/09/2024 Progress Note Patient:?ROLANDOODILIA Tammie yonathan Ward Provider:?Benjamin Landeros DPM :1950???Age:74 Y???Sex:Female D ate:10/09/2024 Address:[facility] [address], [facility] Pcp:Buddy Morrow MD Subjective: * Chief Complaints: [...] ?Marital status: . 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 * Medications:?TakingPantopraz ole Sodium 40 MG Tablet [...] of a nail nipper and/or dremel-type grinder machine knife setter, to a more viable healthy nail plate or bed tissue 6-10. Silver nitrate used for any petechial bleeding as necessary. Definitive antifungal treatment options have been reviewed and discussed with the patient. The patient chooses, no pharmaceutical tx - 23629.?Keratoma Treatment:?Parring or Cutting of Benign Hyperkeratotic Lesion(s)?(-57) More than 4 Lesions - The Benign hyperkeratotic lesions, as described in exam, were pared, and/or cut utilizing a sterile 15 blade, tissue nippers, and/or dremel - 89031.? * Procedure Codes:?60109 DEBRI DE NAIL, 6 OR MORE, Modifiers: XS 78451 TRIM SKIN LESIONS, OVER 4, Modifiers: XS * Follow Up:?prn * Images: * Sign off status: Completed true * Provider:?Benjamin Landeros DPM Date:?2023 Generated for Stephanie smith/Jareth/Ania on:?02/19/2025 01:01 PM EDT History and Physical [...]
--- OUTSIDE RECORDS SUMMARY | 2025-02-19 13:01 | XMS_ITS | Patient Health Record ---
Author Organization [facility] Address [address] [facility] [place] [address] Care Team Providers Care Shipping Weigher Name Role Phone Buddy Morrow MD Primary Care Provider Benjamin Skelton Unavailable [phone] Allergies Allergen (clinical drug ingredient) Drug/Non Drug [...] Problem Acquired hammer toe of right foot (8977706525510918 ) Other hammer toe(s) (acquired), right foot (M20.41) Active confirmed Response to treatment, Improvemen t Problem Acquired hammer toe of left foot (2261840567754108 ) Other hammer toe(s) (acquired), left foot (M20.42) Active confirmed Response to treatment, Improvemen t Problem Polyneuropathy due to diabetes mellitus type I (089185735) 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 confirmed Vital Signs Blood pressure diastolic 70 mm Hg 01/15/2025 Height 5ft4in in 01/15/2025 Blood pressure systolic 103 mm Hg 01/15/2025 Weight 200 lbs 01/15/2025 BMI 34.33 kg/m2 01/15/2025 Procedures Procedure Date Ordered Date Performed Result Body Sit e 93290-XLDNPEA NAIL, 6 OR MORE 03/27/2024 N/A 79076-PFCN SKIN LESIONS, OVER 4 03/27/2024 N/A 00586-GTFDJEC NAIL, 6 OR MORE 06/26/2024 N/A 64069-FPHA SKIN LESIONS, OVER 4 06/26/2024 N/A 74402-ZZFIWOL NAIL, 6 OR MORE 10/09/2024 N/A 50632-SUCH SKIN LESIONS, OVER 4 10/09/2024 N/A 87366-VBDBSSL NAIL, 6 OR MORE 01/15/2025 N/A 31442-THWZ SKIN LESIONS, OVER 4 01/15/2025 N/A Encounters Encounter Location Date Provider Diagnosis [address] [address] 03/27/2024 Benjamin Leti Type 1 diabetes mellitus with diabetic polyneuropathy E10.42 and Tinea unguium B35.[address] [address] 06/26/2024 Benjamin Leti Type 1 diabetes mellitus with diabetic polyneuropathy E10.42 ; Tinea unguium B35.1 ; Other hammer toe(s) (acquired), right foot M20.41 and Other hammer toe(s) (acquired), left foot M20.[address] [address] 10/09/2024 Benjamin Leit Type 1 diabetes mellitus with diabetic polyneuropathy E10.42 and Tinea unguium B35.[address] [address] 01/15/2025 Benjamin Leti Type 1 diabetes mellitus [...] 02/11/2015 Hemoglobin A1c 12/02/2015 Hemoglobin A1c 06/03/2017 23387-FQNUEDJ NAIL, 6 OR MORE 10/09/2024 14089-DFWNGXI NAIL, 6 OR MORE 01/15/2025 47616-YNJSFKR NAIL, 6 OR MORE 09/12/2020 09128-XJKICCH NAIL, 6 OR MORE 12/12/2020 23721-AISWJYO NAIL, 6 OR MORE 03/13/2021 57941-BODGEYG NAIL, 6 OR MORE 06/12/2021 53894-YQUHLCW NAIL, 6 OR MORE 09/18/2021 29977-CBWFLWB NAIL, 6 OR MORE 12/18/2021 41044-ECTRWRX NAIL, 6 OR MORE 03/23/2022 08704-PJKDJQX NAIL, 6 OR MORE 06/25/2022 74778-SGHXVKQ NAIL, 6 OR MORE 09/24/2022 52580-KHECWQC NAIL, 6 OR MORE 12/24/2022 97147-FVSMOOU NAIL, 6 OR MORE 03/25/2023 55490-CQVLICI NAIL, 6 OR MORE 06/24/2023 06881-JTVQFND NAIL, 6 OR MORE 09/27/2023 79176-SRDCCPP NAIL, 6 OR MORE 12/27/2023 68482-DOOVPVD NAIL, 6 OR MORE 03/27/2024 02114-FRGFRPC NAIL, 6 OR MORE 06/26/2024 29052-KEFUKTA NAIL, 6 OR MORE 08/22/2015 93548-YVYWUGS NAIL, 6 OR MORE 05/16/2015 56385-RLELVAW NAIL, 6 OR MORE 02/11/2015 35588-YUUVHQV NAIL, 6 OR MORE 11/02/2013 90725-BHXLUHJ NAIL, 6 OR MORE 02/01/2014 68226-PCLXLXW NAIL, 6 OR MORE 05/10/2014 28144-SSMAGHL NAIL, 6 OR MORE 08/13/2014 91292-KDHCNXN NAIL, 6 OR MORE 11/12/2014 37017-MQDHEDW NAIL, 6 OR MORE 07/27/2011 36486-EHWESTP NAIL, 6 OR MORE 10/15/2011 55069-ZZBLTOL NAIL, 6 OR MORE 01/14/2012 64981-DINWVEM NAIL, 6 OR MORE 04/11/2012 57994-JEYKBUV NAIL, 6 OR MORE 07/28/2012 25218-ZIZQGLD NAIL, 6 OR MORE 10/13/2012 03231-VFVAXZN NAIL, 6 OR MORE 01/12/2013 36979-NURRVEH NAIL, 6 OR MORE 04/13/2013 28049-CNJQONM NAIL, 6 OR MORE 08/03/2013 24589-XDUWZAS NAIL, 6 OR MORE 12/02/2015 92563-HKLNCEZ NAIL, 6 OR MORE 03/02/2016 91507-TNETGWJ NAIL, 6 OR MORE 06/11/2016 64724-FOTTVCI NAIL, 6 OR MORE 09/10/2016 91795-RSGEKEO NAIL, 6 OR MORE 12/10/2016 45789-HVEHJGQ NAIL, 6 OR MORE 03/04/2017 55657-PLQTXPH NAIL, 6 OR MORE 06/07/2017 30207-RGWGMUW NAIL, 6 OR MORE 09/06/2017 97931-LNPNIKT NAIL, 6 OR MORE 12/09/2017 11495-WUQYDSS NAIL, 6 OR MORE 03/10/2018 89429-PAJGXSH NAIL, 6 OR MORE 06/13/2018 59747-VUFDZUZ NAIL, 6 OR MORE 09/12/2018 83550-KVJEHEW NAIL, 6 OR MORE 12/26/2018 39412-GABMHEW NAIL, 6 OR MORE 03/27/2019 39570-NVOERRK NAIL, 6 OR MORE 06/26/2019 37087-GYPLDZX NAIL, 6 OR MORE 09/25/2019 15781-JSWASLI NAIL, 6 OR MORE 12/25/2019 48349-WSQTYWN NAIL, 6 OR MORE 06/13/2020 96681- Debride <25 sq cm 08/03/2013 58731-GLSU SKIN LESIONS, OVER 4 11/02/20 13 33774-YWDV SKIN LESIONS, OVER 4 11/12/20 14 81026-RAGW SKIN LESIONS, OVER 4 08/13/20 14 08538-HMVP SKIN LESIONS, OVER 4 05/10/20 14 46157-VSZW SKIN LESIONS, OVER 4 02/02/20 14 10230-WEKP SKIN LESIONS, OVER 4 02/12/20 15 58724-BWPB SKIN LESIONS, OVER 4 05/16/20 15 42607-SNYB SKIN LESIONS, OVER 4 08/22/20 15 13807-IQOT SKIN LESIONS, OVER 4 12/02/19 16 44538-JPJO SKIN LESIONS, OVER 4 06/13/20 20 60434-PVFS SKIN LESIONS, OVER 4 12/25/19 20 78669-FJXC SKIN LESIONS, OVER 4 09/25/20 19 14287-DKKO SKIN LESIONS, OVER 4 06/26/20 19 08789-YKJD SKIN LESIONS, OVER 4 03/27/20 19 46983-OESJ SKIN LESIONS, OVER 4 12/26/19 19 19994-WQPE SKIN LESIONS, OVER 4 09/12/20 18 72220-GKSZ SKIN LESIONS, OVER 4 06/13/20 18 68900-OCWT SKIN LESIONS, OVER 4 03/10/20 18 85157-VGUJ SKIN LESIONS, OVER 4 12/09/19 18 05669-SVRY SKIN LESIONS, OVER 4 09/06/20 17 68749-LQFR SKIN LESIONS, OVER 4 03/04/20 17 63516-BYMW SKIN LESIONS, OVER 4 06/07/20 17 29108-URZM SKIN LESIONS, OVER 4 12/10/19 17 67443-WJSO SKIN LESIONS, OVER 4 09/10/20 16 68250-GQFJ SKIN LESIONS, OVER 4 06/11/20 16 25397-OKPW SKIN LESIONS, OVER 4 03/02/20 16 50338-XCOA SKIN LESIONS, OVER 4 06/26/20 24 51608-GALT SKIN LESIONS, OVER 4 03/27/20 24 45655-ZVIA SKIN LESIONS, OVER 4 12/27/19 24 84466-CMBY SKIN LESIONS, OVER 4 09/27/20 23 63243-HNGR SKIN LESIONS, OVER 4 06/24/20 22686-WAMV SKIN LESIONS, OVER 4 03/25/20 45749-CEQW SKIN LESIONS, OVER 4 12/24/19 23 35497-XEES SKIN LESIONS, OVER 4 09/24/20 97697-MPTB SKIN LESIONS, OVER 4 06/25/20 50401-RTVJ SKIN LESIONS, OVER 4 03/23/20 32215-XXTP SKIN LESIONS, OVER 4 12/18/19 28573-YNBV SKIN LESIONS, OVER 4 09/18/20 70116-JOFJ SKIN LESIONS, OVER 4 06/12/20 50054-PEMI SKIN LESIONS, OVER 4 03/13/20 54835-RTQC SKIN LESIONS, OVER 4 12/12/19 21 07430-GRBH SKIN LESIONS, OVER 4 09/12/20 20568-SUQE SKIN LESIONS, OVER 4 01/15/20 25 33671-ZNVU SKIN LESIONS, OVER 4 10/09/20 24 10618-LAWU SKIN LESIONS, 2 TO 4 07/27/20 11 05804-JXZD SKIN LESIONS, 2 TO 4 04/13/20 13 42699-CFHW SKIN LESIONS, 2 TO 4 01/12/20 13 70105-ZFPJ SKIN LESIONS, 2 TO 4 10/13/20 12 30258-HFGG SKIN LESIONS, 2 TO 4 07/28/20 12 28778-QQNO SKIN LESIONS, 2 TO 4 04/11/20 12 81780-LYOC SKIN LESIONS, 2 TO 4 01/14/20 12 30192-VVHT SKIN LESIONS, 2 TO 4 10/15/20 11 HEMOGLOBIN A1C (GLYCOHEMOGLOBIN) 020 Next Appt Details Provider Name:Benjamin Andersen Leti , 04/23/2025 01:30:00 PM, [address] [place] [address], [place], [address], Insurance Providers Payer Name Payer Address Payer Phone Subscriber Number Group Number Insured Name Patient Relationship to Insured Coverage Start Date Coverage End Date [employer] Medicare Adv-[id number] [address] [address] [place] [address] [id number] Miriam Henry Self - patient is the insured [facility] Claims [facility] Office of Community Care [address] [address] [place] [address] [id number] Miriam Henry Self - patient is the [...] [facility], [facility] 05/17/24 [facility]-Hiatal Hernia flare up 02/27/2021 [facility]- Hiatal hernia flare up 05/21/19
--- OUTSIDE RECORDS SUMMARY | 2025-02-19 13:01 | XMS_ITS | Clinical Summary ---
Author Organization [facility] Address [address] [place] [address] Care Team Providers Care Air Chief Marshal Name Role Phone Buddy Morrow Primary Care Provider UnavailLinda Coleman NP Unavailable Unavailable Nancy Lopez MD Unavailable Slava Hernández PA-C Unavailable [phone] Allergies Active Allergy Reactions Severity Noted Date Comments Lidocaine 02/13/2024 Delete per patient, s/b novacaine Procaine 05/30/2024 Oxycodone-Acetaminophen Hives/Urticaria 012 Hydrocodone-Acetaminophen 07/25/2012 Medications Medication Sig Dispensed Refills Start Date End Date Status levothyroxine (SYNTHROID, LEVOTHROID) 200 MCG tablet Take 200 mcg by mouth daily. 0 Active metoprolol (LOPRESSOR) 50 MG tablet Take 50 mg by mouth 2 times daily. 0 Active metformin (GLUCOPHAGE) 500 MG tablet Take 500 mg by mouth 2 times daily (with meals). 0 Active amitriptyline (ELAVIL) 25 MG tablet Take 25 mg by mouth at bedtime. 0 Active aspirin (SB LOW DOSE ASA EC) 81 MG EC tablet Take 81 mg by mouth daily. 0 Active lisinopril (PRINIVIL,ZESTRIL) 10 MG tablet Take 10 mg by mouth daily. 0 Active NIACIN by Does not apply route. otc 0 Active simvastatin (ZOCOR) 40 MG tablet Take 40 mg by mouth at bedtime. 0 Active gabapentin (NEURONTIN) 300 MG capsule Take 300 mg by mouth 2 times daily. 0 Active Active Problems Problem Noted Date S/P repair of paraesophageal hernia 01/26 Hiatal hernia 02/13/2024 Last Assessment & Plan: 73-year-old female who on 05/17/2024 had a da Marli laparoscopic Heller myotomy, paraesophageal hernia repair with mesh and toupee fundoplication, EGD with savory dilation performed at [facility] by Dr.Laki Lopez. Her presurgical symptoms of dysphagia, regurgitation are no longer present and has been tolerating a soft mechanical diet well. Her barium swallow performed does show a possible small recurrence of her hiatal hernia with no obstruction or leakage. Due to her being asymptomatic and tolerating a soft mechanical diet well she was advanced to a regular diet and advised to continue to abstain from carbonated beverages and avoid lifting anything greater than 10 pounds for the next 2 weeks. She was instructed to contact the thoracic surgery department moving forward should any of her symptoms return or if she has any questions in the future. Achalasia 02/13/2024 Last Assessment & Plan: 73-year-old woman with type II achalasia demonstrated on esophageal manometry quite clearly. This has progressed over time now with a dilated esophagus, no peristaltic waves, and no relaxation of the lower esophageal sphincter. I explained how the esophagus works in the normal situation as well as how achalasia affects the esophagus motility in the body of the esophagus and at the lower esophageal sphincter. She seemed understand this well. The options for type II achalasia which she has are with balloon dilation which she has had once with some improvement but now seems to be worsening again versus botulinum toxin which durability is up to 6 months versus poem (endoscopic myotomy) versus surgical Heller myotomy. After discussing the risks and benefits of each of these options in detail, she wants to proceed with the surgical Heller myotomy which we will plan to do in 3 to 4 weeks with possible fundoplication. All questions were answered. CAD, 70% LAD FFR 0.88, tx medically 06/29 HTN (hypertension) 07/25/2012 Hyperlipidemia LDL goal < 70 07/25/2012 Overview: IMO update DM2 (diabetes mellitus, type 2) 07/25/20 12 Hypothyroid 07/25/2012 Social History Tobacco Use Types Packs/Day Years Used Date Smoking Tobacco: Former Tobacco Cessation:Counseling Given: Not Answered Alcohol Use Standard Drinks/Week Comments Not Asked 0 (1 standard drink = 0.6 oz pur e alcohol) Sex Assigned at Date Recorded Not on file Last Filed Vital Signs Vital Sign Reading Time Taken Comments Blood Pressure 155/82 06/13/2024 10:19 AM EDT Pulse 91 06/13/2024 10:19 AM EDT Temperature 36.5 ??C (97.7 ??F) 06/13/2024 10:19 AM E DT Respiratory Rate 14 06/13/2024 10:19 AM EDT Oxygen Saturation 93% 06/13/2024 10:19 AM EDT Inhaled Oxygen Concentration - - Weight 80.3 kg (177 lb) 06/13/2024 10:19 AM EDT Height 162.6 cm (5' 4 ) 06/13/2024 10:19 AM EDT Body Mass Index 30.38 06/13/2024 10:19 AM EDT Plan of Treatment Health Maintenance Due Date Last Done Comments Covid-19 Vaccine (#1) 02/18/1951 DEPRESSION SCREEN 1960 HEPATITIS C SCREENING 1966 TOBACCO CHECK/ADVISE 1966 DTAP/TDAP/TD (1 - Tdap) 1967 CHOLESTEROL SCREENING 1968 MAMMOGRAM 1988 SHINGLES VACCINE (1 of 2) 1998 BONE DENSITY SCREENING 2013 FALL RISK ASSESSMENT 2013 PNEUMOCOCCAL VACCINE (1 - PCV) 2013 INFLUENZA (#1) 2024 11/04/2019, 1205/2018, 11/15/2016, Additional history exists BMI CHECK/ADVISE 11/28/2024 Insurance Payer Benefit Plan / Group Subscriber ID Effective Dates Phone Address Type [facility] MEDICARE FFS [facility] MDCR-ADV PPO $0 [place] [id number] 2023-Pres ent [facility] MEDICARE ADVANTAGE [address] [address] [place] [address] PPO [id number] [place] $0 [place] [id number] 2000-Pres ent [address] [place] [address] PPO [id number]-zjv-Weqg [place] [id number] 2013-Pres ent [address] [place] [address] MEDICARE [id number] [place] $0 [place] [id number] 2012-08/21 [address] [place] [address] PPO Zlc-wcr-Topx ice Care Teams Air Chief Marshal Relationship Specialty Start Date End Date Buddy Morrow PCP - General Internal Medicine 07/25/12 Linda Melgar, BICYCLE COURIER Specialist Gastroenterology 04/18/24 Nancy Lopez MD Specialist Thoracic Surgery 04/18/24 Slava Hernández PA-C [address] [place] [phone] Specialist Thoracic Surgery 05/30/24
--- OUTSIDE RECORDS SUMMARY | 2025-02-19 13:01 | XMS_ITS | Encounter Summary ---
Author Organization [facility] Address [address] [place] [address] Care Team Providers Care Solid Glass Rod Dowel Machine Operator Name Role Phone Buddy Morrow Primary Care Provider Unavailabl e Linda Melgar DIETETIC INTERN Unavailable Unavailable Nancy Lopez MD Unavailable Slava Hernández PA-C Unavailable [phone] Encounter Details Date Type Department Care Team Description 01/04/2024 Hospital Medical Records [address] [place] [id number] Destin Villalba MD Social History Tobacco Use [...] on filedocumented in this encounter Care Teams Solid Glass Rod Dowel Machine Operator Relationship Specialty Start Date End Date Buddy Morrow PCP - General Internal Medicine 07/25/12 Linda Melgar DIETETIC INTERN Specialist Gastroenterology 04/18/24 Nancy Lopez MD Specialist Thoracic Surgery 04/18/24 Slava Hernández PA-C [address] [place] [phone] Specialist Thoracic Surgery 05/30/24 documented as of this encounter
--- OUTSIDE RECORDS SUMMARY | 2025-02-19 13:01 | XMS_ITS ---
Author Organization [facility] Address [address] [facility] [place], [place] [address] Care Team Providers Care Fine Grade Operator Name Role Phone Buddy Morrow MD Primary Care Provider Benjamin Skelton Unavailable [phone] Allergies Allergen (clinical drug ingredient) Drug/Non Drug [...] Ordered Date Performed Result Body Sit e 59537-EKJMVNN NAIL, 6 OR MORE 01/15/2025 N/A 16651-KIQF SKIN LESIONS, OVER 4 01/15/2025 N/A Encounters Encounter Location Date Provider Diagnosis [facility] [address] [address] 01/15/2025 Benjamin Landeros Type 1 diabetes mellitus [...] INSTRUCTIONS.pdf) Pending Test Test Name Order Date 83093-VJMPETJ NAIL, 6 OR MORE 01/15/2025 70225-PFLD SKIN LESIONS, OVER 4 01/15/20 25 Next Appt Details Follow Up: prn, Reason: Provider Name:Benjamin Landeros , 04/23/2025 01:30:00 PM, [address] [place], [address], Procedure Notes * Category Sub-Category Detail Notes [...] use of a nail nipper and/or dremel-type tankage grinder, to a more viable healthy nail [...] to maintain effectiveness in symptomatic relief - 75532 Keratoma Treatment Parring or Cutting o f [...] instrumentation by the physician of record - 10351 Progress Notes * Miriam NOGUEIRA JDOB: (74 yo F)Acc No.[id number]:01/15/2025 Progress Note Patient:Tammie GREEN Provider:?Benjamin Landeros DPM :1950???Age:74 Y???Sex:Female D ate:01/15/2025 Address:[facility] [address], [facility] Pcp:Buddy Morrow MD Subjective: * Chief Complaints: [...] ?Marital status: . 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 ???Drug/Alcohol:?AUDIT-C (Standard)?Did you have a drink containing [...] 2.?Type 1 diabetes mellitus with diabetic polyneuropathy?Procedure: 64346-PVTGAUT NAIL, 6 OR MORE ?Procedure: 22942-LZDG SKIN LESIONS, OVER 4 * Procedures:?Debride Nail [...] use of a nail nipper and/or dremel-type tankage grinder, to a more viable healthy nail [...] to maintain effectiveness in symptomatic relief - 48266.?Keratoma Treatment:?Parring or Cutting of Benign Hyperkeratotic Lesion(s)?(-57) [...] instrumentation by the physician of record - 02596.? * Procedure Codes:?43924 DEBRI DE NAIL, 6 OR MORE, Modifiers: XS 33052 TRIM SKIN LESIONS, OVER 4, Modifiers: XS [...] Landeros DPM Date:?2024 Generated for Stephanie smith/Jareth/Elitting on:?02/19/2025 01:00 PM EDT History and Physical Notes * [...]
--- OUTSIDE RECORDS SUMMARY | 2025-02-19 13:01 | XMS_ITS | Clinical Summary ---
Author Organization [facility] ity Address [address] [place] [address] Care Team Providers Care Privacy Manager Name Role Phone Buddy Morrow MD Primary Care Provider Surgical History Surgery Date Site/Laterality Comments CHOLECYSTECTOMY 1970 PROCEDURE: HISTORICAL CHOLECYSTECTOMY APPENDECTOMY 1973 PROCEDURE: HISTORICAL APPENDECTOMY TONSILLECTOMY PROCEDURE: HISTORICAL TONSILLECTOMY OTHER SURGICAL HISTORY 05/17/2024 N/A PROCEDURE: GA LAPS RPR PARAESPHGL HRNA INCL FUNDPLSTY W/MESH Medical History Medical History Date Comments Coronary atherosclerosis of unspecified type of vessel, little traverse or graft 07/25/2012 DX:Coronary atherosclerosis of unspecified type of vessel, little traverse or graft HTN (hypertension) 07/25/2012 DX:HTN (hyper tension) Historical Medical DX 07/25/2012 DX:Hyperli pidemia LDL goal < 70 DM2 (diabetes mellitus, type 2) ([facility]) 07/25/2012 DX:DM2 (diabetes mellitus, t ype 2) ([facility]) Hypothyroid 07/25/2012 DX:Hypothyroid Social History [...] age to complete this topic Care Teams Privacy Manager Relationship Specialty Start Date End Date Buddy Morrow MD [address] [place] [address] Drive [address] [place] [address] PCP - General Internal Medicine 07/25/12
--- OUTSIDE RECORDS SUMMARY | 2025-02-19 13:01 | XMS_ITS | Encounter Summary ---
Author Organization [facility] Address [address] [place] [address] Care Team Providers Care Mechanical Pencils Assembler Name Role Phone Buddy Morrow Primary Care Provider Unavailabl e Linda Melgar ADVERTISING SUPERVISOR Unavailable Unavailable Nancy Lopez MD Unavailable Slava Hernández PA-C Unavailable [phone] Encounter Details Date Type Department Care Team Description 05/18/2024 Orders Only Medical Records [address] [place] [address] Slava Hernández PA-C [address] [phone] Social History Tobacco Use Types Packs/Day Years [...] on filedocumented in this encounter Care Teams Mechanical Pencils Assembler Relationship Specialty Start Date End Date Buddy Morrow PCP - General Internal Medicine 07/25/12 Linda Melgar, ADVERTISING SUPERVISOR Specialist Gastroenterology 04/18/24 Nancy Lopez MD Specialist Thoracic Surgery 04/18/24 Slava Hernández PA-C [address] [place] [phone] Specialist Thoracic Surgery 05/30/24 documented as of this encounter
== END 2025-02-19 11:29 | disposition home or self-care (01) ==
LOC: HO.HWS 10:45
PROVIDERS: PCP Internal Medicine; Visit Provider Obstetrics & Gynecology
DX: N95.0 Postmenopausal bleeding (principal)
CPT/HCPCS: 58100; 99213

== ENCOUNTER 2025-02-21 13:02 | Outpatient (AMB) | payer MEDICARE, OTHER, SELFPAY ==
--- NOTE | 2025-02-21 13:03 | A.OFFVIS_ITS ---
Vital Signs 02/21/25 13:05 Height 5 ft 4 in Weight 202 lb BMI 34.7 Intake Visit Reasons: EMB results Professor Of Public Administration: Professor Of Public Administration Present (Melania Jones Raj) Accompanied by: Self / Same As Patient Allergies hydrocodone [From VICODIN] Allergy (Unknown, Verified 02/19/25 10:59) HEADACHE oxycodone [OXYCODONE] Allergy (Unknown, Verified 02/19/25 10:59) HIVES procaine [From NOVOCAIN] Allergy (Unknown, Verified 02/19/25 10:59) FAINTED HPI Comments Details: The patient is presenting after endometrial biopsy. The patient has no complaints, no vaginal bleeding, no feverishness chills or abdominal pain. The endometrial biopsy pathology report showed the following: Endometrium, biopsy: Endometrial adenocarcinoma, endometrioid type, FIGO grade 2, with foci of squamous metaplasia. Comment: Immunohistochemical studies to assess for a mismatch repair defect/Wallace Syndrome- related tumor are pending; addendum to follow [facility] Medical History Tubular adenoma of colon Incontinence Hx of esophageal ulcer (~04/2024) Dysphagia Hypoglycemia unawareness associated with type 2 diabetes mellitus Hyperlipidemia associated with type 2 diabetes mellitus Obesity Post-menopausal Screening for breast cancer Dizziness Pre-op exam Hiatal hernia (~04/2024) IDDM (insulin dependent diabetes mellitus) Pre-op exam Diabetic polyneuropathy associated with type 2 diabetes mellitus Obesity (BMI 30-39.9) Hypertension Hypothyroidism 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 Diabetes type 2, uncontrolled Surgical History History of abdominal paracentesis History of esophagogastroduodenoscopy (EGD) History of colonoscopy History of repair of hiatal hernia History of cardiac catheterization Hx of hammer toe correction Hx of shoulder surgery Hx of tonsillectomy Hx laparoscopic cholecystectomy Hx of appendectomy Family History Brother Diabetes Father Lung cancer Mother HTN (hypertension) Social History Household Members: Family Housing: House Are you a primary director day care center to a significant other at home: No Do you presently have visiting nurse or other home services: No Alcohol intake: current Alcohol intake frequency: holidays/special occasions only Patient Tobacco Use Status: Former Tobacco user Tobacco use type: Cigarette Years Smoked: 20 e-Cigarette/Vaping Use: Never Used Second Hand Smoke Exposure: Yes service: No Current occupational status: retired Cognitive needs: No Hearing needs: No Vision needs: Yes (Glasses) Review of Systems Const All systems reviewed & are unremarkable except as noted in HPI and below Reports as per HPI and Reports no additional complaints GI Reports no additional complaints Reports no additional complaints Physical Exam Vital Signs: BMI result Body Mass Index 34.7 Assessment & Plan Assessment & Plan (1) Endometrial cancer: Code(s): C54.1 - Malignant neoplasm of endometrium Category: Medical Plan: Discussed with the patient the pathology results, the recommended surgical staging procedure, and the prognosis. CT scan of abdomen and pelvis with IV and oral contrast, chest x-ray, and CA [address] Londono Agricultural Education Professor Onc placed. Instructed the patient to call our office back in case a referral appointment is not scheduled, missed or canceled so that we will assist on rescheduling another appointment, the patient verbalized understanding agreed with the plan. Orders: Orders Blood Urea Nitrogen Today C54.1 - Malignant neoplasm of endometrium, N95.0 - Postmenopausal bleeding CA-125 Today C54.1 - Malignant neoplasm of endometrium CT abdomen pelvis w IV con Today C54.1 - Malignant neoplasm of endometrium XR chest 2V Today C54.1 - Malignant neoplasm of endometrium Creatinine Today C54.1 - Malignant neoplasm of endometrium, N95.0 - Po stmenopausal bleeding Referrals Gynecologic Oncology Referral C54.1 - Malignant neoplasm of endometrium Coding Level of Care Code Est Pt Level 3 (42354) Diagnoses Endometrial cancer C54.1
[2025-02-21 13:05] VITALS: BMI 34.7
--- OUTSIDE RECORDS SUMMARY | 2025-02-21 16:04 | XMS_ITS | Encounter Summary ---
Author Organization [facility] Address [address] [place] [address] Care Team Providers Care Diesel Engine Erector Name Role Phone Buddy Morrow Primary Care Provider Unavailabl e Linda Melgar ORE TRIMMER Unavailable Unavailable Nancy Lopez MD Unavailable Slava Hernández PA-C Unavailable [phone] Encounter Details Date Type Department Care Team Description 01/04/2024 Hospital Medical Records [address] [place] [address] Destin Villalba MD Social History Tobacco Use [...] on filedocumented in this encounter Care Teams Diesel Engine Erector Relationship Specialty Start Date End Date Buddy Morrow PCP - General Internal Medicine 07/25/12 Linda Melgar ORE TRIMMER Specialist Gastroenterology 04/18/24 Nancy Lopez MD Specialist Thoracic Surgery 04/18/24 Slava Hernández PA-C [address] [place] [phone] Specialist Thoracic Surgery 05/30/24 documented as of this encounter
--- OUTSIDE RECORDS SUMMARY | 2025-02-21 16:04 | XMS_ITS | Encounter Summary ---
Author Organization [facility] Address [address] [place] [address] Care Team Providers Care Sales Negotiator Name Role Phone Buddy Morrow Primary Care Provider Unavailabl e Linda Melgar TUNNEL KILN FIRER Unavailable Unavailable Nancy Lopez MD Unavailable Slava Hernández PA-C Unavailable [phone] Encounter Details Date Type Department Care Team Description 05/17/2024 Hospital Medical Records [address] [place], [place] [id number] [place] [address] Social History Tobacco Use Types Packs/Day Years [...] filedocumented in this encounter Care Teams Sales Negotiator Relationship Specialty Start Date End Date Buddy Morrow PCP - General Internal Medicine 07/25/12 Linda Melgar, TUNNEL KILN FIRER Specialist Gastroenterology 04/18/24 Nancy Lopez MD Specialist Thoracic Surgery 04/18/24 Slava Hernández PA-C [address] [place] [phone] Specialist Thoracic Surgery 05/30/24 documented as of this encounter
--- OUTSIDE RECORDS SUMMARY | 2025-02-21 16:04 | XMS_ITS ---
Author Organization [facility] Address [address] [facility] [place], [place] [address] Care Team Providers Care Health Care Coach Name Role Phone Buddy Morrow MD Primary Care Provider Benjamin Skelton Unavailable [phone] Allergies Allergen (clinical drug ingredient) Drug/Non Drug [...] Ordered Date Performed Result Body Sit e 13760-CUDVFSP NAIL, 6 OR MORE 10/09/2024 N/A 44708-KRGA SKIN LESIONS, OVER 4 10/09/2024 N/A Encounters Encounter Location Date Provider Diagnosis [facility] [address] [address] 10/09/2024 Benjamin Landeros Type 1 diabetes mellitus with diabetic polyneuropathy E10.42 and Tinea unguium B35.1 Assessments Encounter Date Diagnosis (ICD Code) Assessment Notes Treatment Notes Treatment Clinical Notes Section Notes 10/09/2024 Type 1 diabetes mellitus with diabetic polyneuropathy (ICD-10 - E10.42) 10/09/2024 Tinea unguium (ICD-10 - B35.1) 10/09/2024 Other Plan Of Treatment Pending Test Test Name Order Date 58281-EAGBGPC NAIL, 6 OR MORE 10/09/2024 09440-XHXJ SKIN LESIONS, OVER 4 10/09/20 24 Next Appt Details Follow Up: prn, Reason: Provider Name:Benjamin Landeros , 04/23/2025 01:30:00 PM, [address] [place] [address], [phone], Procedure Notes * Category Sub-Category Detail Notes [...] use of a nail nipper and/or dremel-type hull grinder, to a more viable healthy nail plate or bed tissue 6-10. Silver nitrate used for any petechial bleeding as necessary. Definitive antifungal treatment options have been reviewed and discussed with the patient. The patient chooses, no pharmaceutical tx - 13659 Keratoma Treatment Parring or Cutting o f Benign Hyperkeratotic Lesion(s) (-57) More than 4 Lesions - The Benign hyperkeratotic lesions, as described in exam, were pared, and/or cut utilizing a sterile 15 blade, tissue nippers, and/or dremel - 83820 Progress Notes * Miriam NOGUEIRA JDOB: (74 yo F)Acc No.[id number]:10/09/2024 Progress Note Patient:?ROLANDOODILIA Tammie yonathan Ward Provider:?Benjamin Landeros DPM :1950???Age:74 Y???Sex:Female D ate:10/09/2024 Address:[facility] [address], [facility] Pcp:Buddy Morrow MD Subjective: * Chief Complaints: [...] ?Marital status: . 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 * Medications:?TakingPantopraz ole Sodium 40 MG Tablet [...] use of a nail nipper and/or dremel-type hull grinder, to a more viable healthy nail plate or bed tissue 6-10. Silver nitrate used for any petechial bleeding as necessary. Definitive antifungal treatment options have been reviewed and discussed with the patient. The patient chooses, no pharmaceutical tx - 04505.?Keratoma Treatment:?Parring or Cutting of Benign Hyperkeratotic Lesion(s)?(-57) More than 4 Lesions - The Benign hyperkeratotic lesions, as described in exam, were pared, and/or cut utilizing a sterile 15 blade, tissue nippers, and/or dremel - 35095.? * Procedure Codes:?88393 DEBRI DE NAIL, 6 OR MORE, Modifiers: XS 56867 TRIM SKIN LESIONS, OVER 4, Modifiers: XS * Follow Up:?prn * Images: * Sign off status: Completed true * Provider:?Benjamin Landeros DPM Date:?2023 Generated for Stephanie smith/Jareth/Ania on:?02/21/2025 04:04 PM EDT History and Physical Notes * [...]
--- OUTSIDE RECORDS SUMMARY | 2025-02-21 16:04 | XMS_ITS | Clinical Summary ---
Author Organization [facility] Address [address] [place] [address] Care Team Providers Care Veneer Cutter Name Role Phone Buddy Morrow Primary Care Provider UnavailLinda Coleman NP Unavailable Unavailable Nancy Lopez MD Unavailable Slava Hernández PA-C Unavailable [phone] Allergies Active Allergy Reactions Severity Noted Date [...] fundoplication, EGD with savory dilation performed at [facility] by Dr.Laki Lopez. Her presurgical symptoms of [...] Subscriber ID Effective Dates Phone Address Type [facility] MEDICARE FFS [facility] MDCR-ADV PPO $0 BOWDLE [id number] 2023-Pres ent [facility] MEDICARE ADVANTAGE [address] [address] [place] [address] PPO Aee-opf-[id number] ice -[place] $0 MORRILL [id number] 2000-Pres ent [address] [place] [address] PPO [id number] [place] [id number] 2013-Pres ent [address] [place] [address] MEDICARE [id number] ICE -[place] $0 MORRILL [id number] 2012-08/21 [address] [place] [address] PPO [id number]-[id number]-Xuwg ice Care Teams Veneer Cutter Relationship Specialty Start Date End Date Buddy Morrow PCP - General Internal Medicine 07/25/12 Linda Melgar, RADIO ELECTRONICS OFFICER Specialist Gastroenterology 04/18/24 Nancy Lopez MD Specialist Thoracic Surgery 04/18/24 Slava Hernández PA-C [address] [place] [phone] Specialist Thoracic Surgery 05/30/24
--- OUTSIDE RECORDS SUMMARY | 2025-02-21 16:04 | XMS_ITS | Clinical Summary ---
Author Organization [facility] Address [address] [place] [address] Care Team Providers Care Sociocultural Anthropology Professor Name Role Phone Buddy Morrow MD Primary Care Provider [phone] Surgical History Surgery Date Site/Laterality Comments CHOLECYSTECTOMY 1970 PROCEDURE: HISTORICAL CHOLECYSTECTOMY APPENDECTOMY 1973 PROCEDURE: HISTORICAL APPENDECTOMY TONSILLECTOMY PROCEDURE: HISTORICAL TONSILLECTOMY OTHER SURGICAL HISTORY 05/17/2024 N/A PROCEDURE: AR LAPS RPR PARAESPHGL HRNA INCL FUNDPLSTY W/MESH Medical History Medical History Date Comments Coronary atherosclerosis of unspecified type of vessel, [place] or graft 07/25/2012 DX:Coronary atherosclerosis of unspecified type of vessel, [place] or graft HTN (hypertension) 07/25/2012 DX:HTN (hyper tension) Historical Medical DX 07/25/2012 DX:Hyperli pidemia LDL goal < 70 DM2 (diabetes mellitus, type 2) ([facility]/HCC) 07/25/2012 DX:DM2 (diabetes mellitus, t ype 2) ([facility]) Hypothyroid 07/25/2012 DX:Hypothyroid Social History [...] age to complete this topic Care Teams Sociocultural Anthropology Professor Relationship Specialty Start Date End Date Buddy Morrow MD [address] [place] [address] Drive [address] [place] [address] PCP - General Internal Medicine 07/25/12
--- OUTSIDE RECORDS SUMMARY | 2025-02-21 16:04 | XMS_ITS | Patient Health Record ---
Author Organization [facility] Address [address] [facility] [place] [place] [address] Care Team Providers Care Forming Yardage Control Operator Name Role Phone Buddy Morrow MD Primary Care Provider Benjamin Skelton Unavailable [phone] Allergies Allergen (clinical drug ingredient) Drug/Non Drug [...] Problem Acquired hammer toe of right foot (7307067180206529 ) Other hammer toe(s) (acquired), right foot (M20.41) Active confirmed Response to treatment, Improvemen t Problem Acquired hammer toe of left foot ([id number] ) Other hammer toe(s) (acquired), left foot (M20.42) Active confirmed Response to treatment, Improvemen t Problem Polyneuropathy due to diabetes mellitus type I (155585968) 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 confirmed Vital Signs Blood pressure diastolic 70 mm Hg 01/15/2025 Height 5ft4in in 01/15/2025 Blood pressure systolic 103 mm Hg 01/15/2025 Weight 200 lbs 01/15/2025 BMI 34.33 kg/m2 01/15/2025 Procedures Procedure Date Ordered Date Performed Result Body Sit e 07799-JLHARHR NAIL, 6 OR MORE 03/27/2024 N/A 49530-CESL SKIN LESIONS, OVER 4 03/27/2024 N/A 10844-PXATUPA NAIL, 6 OR MORE 06/26/2024 N/A 70356-TBGF SKIN LESIONS, OVER 4 06/26/2024 N/A 20018-HNEKNDG NAIL, 6 OR MORE 10/09/2024 N/A 14956-WRWF SKIN LESIONS, OVER 4 10/09/2024 N/A 63218-OCWKROV NAIL, 6 OR MORE 01/15/2025 N/A 26545-FNUZ SKIN LESIONS, OVER 4 01/15/2025 N/A Encounters Encounter Location Date Provider Diagnosis [address] [address] 03/27/2024 Benjamin Leti Type 1 diabetes mellitus with diabetic polyneuropathy E10.42 and Tinea unguium B35.[address] [address] 06/26/2024 Benjamin Leti Type 1 diabetes mellitus with diabetic polyneuropathy E10.42 ; Tinea unguium B35.1 ; Other hammer toe(s) (acquired), right foot M20.41 and Other hammer toe(s) (acquired), left foot M20.[address] [address] 10/09/2024 Benjamin Leti Type 1 diabetes mellitus with diabetic polyneuropathy E10.42 and Tinea unguium B35.[address] [address] 01/15/2025 Benjamin Leti Type 1 diabetes mellitus [...] 02/11/2015 Hemoglobin A1c 12/02/2015 Hemoglobin A1c 06/03/2017 18068-DRCWYSO NAIL, 6 OR MORE 10/09/2024 42307-ADONZWO NAIL, 6 OR MORE 01/15/2025 08185-JOBKDOJ NAIL, 6 OR MORE 09/12/2020 32411-IQTARIC NAIL, 6 OR MORE 12/12/2020 70863-RNJDZXJ NAIL, 6 OR MORE 03/13/2021 50296-YFIUCQN NAIL, 6 OR MORE 06/12/2021 70200-GYYAPMV NAIL, 6 OR MORE 09/18/2021 07083-GFTQVFU NAIL, 6 OR MORE 12/18/2021 19909-SRILDQC NAIL, 6 OR MORE 03/23/2022 06665-CYFITYO NAIL, 6 OR MORE 06/25/2022 87111-NMRVJEW NAIL, 6 OR MORE 09/24/2022 06330-VSSKUIB NAIL, 6 OR MORE 12/24/2022 37016-KODRDOO NAIL, 6 OR MORE 03/25/2023 51633-QUOCVQX NAIL, 6 OR MORE 06/24/2023 55549-LZWRPYW NAIL, 6 OR MORE 09/27/2023 67273-SSQZMQF NAIL, 6 OR MORE 12/27/2023 00069-UNEZVJO NAIL, 6 OR MORE 03/27/2024 61452-UEYNCXU NAIL, 6 OR MORE 06/26/2024 08960-CXUVPYL NAIL, 6 OR MORE 08/22/2015 92281-PHENMSS NAIL, 6 OR MORE 05/16/2015 14322-LBXQFVA NAIL, 6 OR MORE 02/11/2015 66890-MLPUWZB NAIL, 6 OR MORE 11/02/2013 67464-SDWZEAJ NAIL, 6 OR MORE 02/01/2014 97168-QXGSQZG NAIL, 6 OR MORE 05/10/2014 51411-ZKDAOSB NAIL, 6 OR MORE 08/13/2014 91837-DKUILFT NAIL, 6 OR MORE 11/12/2014 70560-TZUEDEK NAIL, 6 OR MORE 07/27/2011 61029-ZPDUIEB NAIL, 6 OR MORE 10/15/2011 77534-OZAPLAX NAIL, 6 OR MORE 01/14/2012 21313-VOJQBHX NAIL, 6 OR MORE 04/11/2012 86575-QLMPTNX NAIL, 6 OR MORE 07/28/2012 37090-RVCEENP NAIL, 6 OR MORE 10/13/2012 76376-VWZFAXS NAIL, 6 OR MORE 01/12/2013 74569-EJOSXWJ NAIL, 6 OR MORE 04/13/2013 40079-WQUJGJA NAIL, 6 OR MORE 08/03/2013 08706-SSMRGQQ NAIL, 6 OR MORE 12/02/2015 92775-SJUVWTG NAIL, 6 OR MORE 03/02/2016 44276-HTBWFYB NAIL, 6 OR MORE 06/11/2016 67863-SICGNUI NAIL, 6 OR MORE 09/10/2016 46060-KKUQYLF NAIL, 6 OR MORE 12/10/2016 18576-VWHTZLP NAIL, 6 OR MORE 03/04/2017 55602-CATKKJQ NAIL, 6 OR MORE 06/07/2017 89872-ZDRSIUA NAIL, 6 OR MORE 09/06/2017 60276-CXAKESM NAIL, 6 OR MORE 12/09/2017 81242-SDKVHVR NAIL, 6 OR MORE 03/10/2018 61158-GQJDESR NAIL, 6 OR MORE 06/13/2018 51168-CRXMTPB NAIL, 6 OR MORE 09/12/2018 73241-FPGLDNO NAIL, 6 OR MORE 12/26/2018 09072-QZWOGBV NAIL, 6 OR MORE 03/27/2019 02377-DNZRUWH NAIL, 6 OR MORE 06/26/2019 18658-IFWJGXE NAIL, 6 OR MORE 09/25/2019 73648-FCUHSEZ NAIL, 6 OR MORE 12/25/2019 05267-LLDIGOR NAIL, 6 OR MORE 06/13/2020 03161- Debride <25 sq cm 08/03/2013 49934-ITRL SKIN LESIONS, OVER 4 11/02/20 13 18689-TZOE SKIN LESIONS, OVER 4 11/12/20 14 93367-FJPT SKIN LESIONS, OVER 4 08/13/20 14 35706-YHGH SKIN LESIONS, OVER 4 05/10/20 14 12211-MQRH SKIN LESIONS, OVER 4 02/02/20 14 28364-PYZN SKIN LESIONS, OVER 4 02/12/20 15 96134-GLNS SKIN LESIONS, OVER 4 05/16/20 15 52621-CWRK SKIN LESIONS, OVER 4 08/22/20 15 13508-WELO SKIN LESIONS, OVER 4 12/02/19 16 12362-HXHK SKIN LESIONS, OVER 4 06/13/20 20 72956-YHKD SKIN LESIONS, OVER 4 12/25/19 20 48668-KVUB SKIN LESIONS, OVER 4 09/25/20 19 46570-LRSX SKIN LESIONS, OVER 4 06/26/20 19 49347-CHIC SKIN LESIONS, OVER 4 03/27/20 19 51166-JCRA SKIN LESIONS, OVER 4 12/26/19 19 97791-LQJA SKIN LESIONS, OVER 4 09/12/20 18 11364-OIWU SKIN LESIONS, OVER 4 06/13/20 18 71145-CICX SKIN LESIONS, OVER 4 03/10/20 18 45120-WFRA SKIN LESIONS, OVER 4 12/09/19 18 25640-AFFO SKIN LESIONS, OVER 4 09/06/20 17 62697-EZMT SKIN LESIONS, OVER 4 03/04/20 17 04606-JHNH SKIN LESIONS, OVER 4 06/07/20 17 98585-FODX SKIN LESIONS, OVER 4 12/10/19 17 35666-SIEO SKIN LESIONS, OVER 4 09/10/20 16 69678-BJDH SKIN LESIONS, OVER 4 06/11/20 16 54715-YRDG SKIN LESIONS, OVER 4 03/02/20 16 04712-EWAQ SKIN LESIONS, OVER 4 06/26/20 24 85221-ZULV SKIN LESIONS, OVER 4 03/27/20 24 35609-SXPC SKIN LESIONS, OVER 4 12/27/19 24 26856-FFMJ SKIN LESIONS, OVER 4 09/27/20 23 51986-WHHV SKIN LESIONS, OVER 4 06/24/20 35337-RNXW SKIN LESIONS, OVER 4 03/25/20 41765-EXFI SKIN LESIONS, OVER 4 12/24/19 23 17756-IZRG SKIN LESIONS, OVER 4 09/24/20 74705-NCMQ SKIN LESIONS, OVER 4 06/25/20 93091-DBBI SKIN LESIONS, OVER 4 03/23/20 68902-BKEE SKIN LESIONS, OVER 4 12/18/19 84278-ATSZ SKIN LESIONS, OVER 4 09/18/20 93529-OTZD SKIN LESIONS, OVER 4 06/12/20 87801-KSEK SKIN LESIONS, OVER 4 03/13/20 90418-HONA SKIN LESIONS, OVER 4 12/12/19 21 25444-XRMU SKIN LESIONS, OVER 4 09/12/20 11666-KLQB SKIN LESIONS, OVER 4 01/15/20 25 14439-GAKY SKIN LESIONS, OVER 4 10/09/20 24 49080-FYPP SKIN LESIONS, 2 TO 4 07/27/20 11 74743-TWFM SKIN LESIONS, 2 TO 4 04/13/20 13 66749-IAUE SKIN LESIONS, 2 TO 4 01/12/20 13 98124-WSAP SKIN LESIONS, 2 TO 4 10/13/20 12 98140-LVEA SKIN LESIONS, 2 TO 4 07/28/20 12 83159-KFVS SKIN LESIONS, 2 TO 4 04/11/20 12 90061-GIFD SKIN LESIONS, 2 TO 4 01/14/20 12 58122-WRRJ SKIN LESIONS, 2 TO 4 10/15/20 11 HEMOGLOBIN A1C (GLYCOHEMOGLOBIN) 020 Next Appt Details Provider Name:Benjamin Andersen Leti , 04/23/2025 01:30:00 PM, [address] [place] [address], [place], [address], Insurance Providers Payer Name Payer Address Payer Phone Subscriber Number Group Number Insured Name Patient Relationship to Insured Coverage Start Date Coverage End Date [employer] Medicare Adv-56409 [address] [address] [place] [address] [id number] Miriam Henry Self - patient is the insured [facility] Claims [facility] Office of Community Care [address] [address] [place] [address] [id number] Miriam Henry Self - patient is the [...] [facility], [facility] 05/17/24 [facility]-Hiatal Hernia flare up 02/27/2021 [facility]- Hiatal hernia flare up 05/21/19
--- OUTSIDE RECORDS SUMMARY | 2025-02-21 16:04 | XMS_ITS | Encounter Summary ---
Author Organization [facility] Address [address] [place] [address] Care Team Providers Care Emissions Testing Technician Name Role Phone Buddy Morrow Primary Care Provider Unavailabl e Linda Melgar TRANSMISSION MECHANIC Unavailable Unavailable Nancy Lopez MD Unavailable Slava Hernández PA-C Unavailable [phone] Encounter Details Date Type Department Care Team Description 04/16/2022 Transfer Records Medical Records [address] [place] [address] Abstract, Provider Social History Tobacco Use Types [...] on filedocumented in this encounter Care Teams Emissions Testing Technician Relationship Specialty Start Date End Date Buddy Morrow PCP - General Internal Medicine 07/25/12 Linda Melgar, TRANSMISSION MECHANIC Specialist Gastroenterology 04/18/24 Nancy Lopez MD Specialist Thoracic Surgery 04/18/24 Slava Hernández PA-C [address] [place] [phone] Specialist Thoracic Surgery 05/30/24 documented as of this encounter
--- OUTSIDE RECORDS SUMMARY | 2025-02-21 16:04 | XMS_ITS | Encounter Summary ---
Author Organization [facility] Address [address] [place] [address] Care Team Providers Care Route Driver Coin Machines Name Role Phone Buddy Morrow Primary Care Provider Unavailabl e Linda Melgar CONFERENCE COORDINATOR Unavailable Unavailable Nancy Lopez MD Unavailable Slava Hernández PA-C Unavailable [phone] Encounter Details Date Type Department Care Team Description 02/16/2018 Release of Information Medical Records [address] [place] [address] Abstract, Provider Social History Tobacco Use Types [...] on filedocumented in this encounter Care Teams Route Driver Coin Machines Relationship Specialty Start Date End Date Buddy Morrow PCP - General Internal Medicine 07/25/12 Linda Melgar, CONFERENCE COORDINATOR Specialist Gastroenterology 04/18/24 Nancy Lopez MD Specialist Thoracic Surgery 04/18/24 Slava Hernández PA-C [address] [place] [phone] Specialist Thoracic Surgery 05/30/24 documented as of this encounter
--- OUTSIDE RECORDS SUMMARY | 2025-02-21 16:04 | XMS_ITS ---
Author [facility] Address [address] [facility] [place], [place] [address] Care Team Providers Care Bit Grinder Name Role Phone Buddy Morrow MD Primary Care Provider Benjamin Skelton Unavailable [phone] Allergies Allergen (clinical drug ingredient) Drug/Non Drug [...] Ordered Date Performed Result Body Sit e 97400-USYEJZR NAIL, 6 OR MORE 01/15/2025 N/A 49728-DAKP SKIN LESIONS, OVER 4 01/15/2025 N/A Encounters Encounter Location Date Provider Diagnosis [facility] [address] [address] 01/15/2025 Benjamin Landeros Type 1 diabetes mellitus [...] INSTRUCTIONS.pdf) Pending Test Test Name Order Date 89103-KKJEAPJ NAIL, 6 OR MORE 01/15/2025 15540-GDCY SKIN LESIONS, OVER 4 01/15/20 25 Next Appt Details Follow Up: prn, Reason: Provider Name:Benjamin Landeros , 04/23/2025 01:30:00 PM, [address] [place], [address], Procedure Notes * Category Sub-Category Detail Notes [...] use of a nail nipper and/or dremel-type chili pepper grinder, to a more viable healthy nail [...] to maintain effectiveness in symptomatic relief - 01873 Keratoma Treatment Parring or Cutting o f [...] instrumentation by the physician of record - 49015 Progress Notes * Miriam NOGUEIRA JDOB: (74 yo F)Acc No.[id number]:01/15/2025 Progress Note Patient:Tammie GREEN Provider:?Benjamin Landeros DPM :1950???Age:74 Y???Sex:Female D ate:01/15/2025 Address:[facility] [address], [facility] Pcp:Buddy Morrow MD Subjective: * Chief Complaints: [...] ?Marital status: . 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 ???Drug/Alcohol:?AUDIT-C (Standard)?Did you have a drink containing [...] 2.?Type 1 diabetes mellitus with diabetic polyneuropathy?Procedure: 96803-LNFKRAU NAIL, 6 OR MORE ?Procedure: 01244-IASU SKIN LESIONS, OVER 4 * Procedures:?Debride Nail [...] use of a nail nipper and/or dremel-type chili pepper grinder, to a more viable healthy nail [...] to maintain effectiveness in symptomatic relief - 31968.?Keratoma Treatment:?Parring or Cutting of Benign Hyperkeratotic Lesion(s)?(-57) [...] instrumentation by the physician of record - 23857.? * Procedure Codes:?78057 DEBRI DE NAIL, 6 OR MORE, Modifiers: XS 12268 TRIM SKIN LESIONS, OVER 4, Modifiers: XS [...] Landeros DPM Date:?2024 Generated for Stephanie smith/Jareth/Ania on:?02/21/2025 04:03 PM EDT History and Physical Notes * [...]
--- OUTSIDE RECORDS SUMMARY | 2025-02-21 16:04 | XMS_ITS | Encounter Summary ---
Author Organization [facility] Address [address] [place] [address] Care Team Providers Care Advanced Manufacturing Engineer Name Role Phone Buddy Morrow Primary Care Provider Unavailabl e Linda Melgar HAIR WEAVER Unavailable Unavailable Nancy Lopez MD Unavailable Slava Hernández PA-C Unavailable [phone] Encounter Details Date Type Department Care Team Description 02/14/2024 Orders Only Medical Records [address] [place] [address] Linda Melgar, HAIR WEAVER Social History Tobacco Use Types Packs/Day Years [...] Results * OUTSIDE CT (01/13/2024) Linda Melgar HAIR WEAVER RADIOLOGY documented in this encounter Visit Diagnoses Not on filedocumented in this encounter Care Teams Advanced Manufacturing Engineer Relationship Specialty Start Date End Date Buddy Morrow PCP - General Internal Medicine 07/25/12 Linda Melgar, HAIR WEAVER Specialist Gastroenterology 04/18/24 Nancy Lopez MD Specialist Thoracic Surgery 04/18/24 Slava Hernández PA-C [address] [place] [phone] Specialist Thoracic Surgery 05/30/24 documented as of this encounter
--- OUTSIDE RECORDS SUMMARY | 2025-02-21 16:04 | XMS_ITS ---
Author Organization [facility] Address [address] [facility] [place] [address] Care Team Providers Care Supervisor Assembly Name Role Phone Buddy Morrow MD Primary Care Provider Benjamin Skelton Unavailable [phone] Allergies Allergen (clinical drug ingredient) Drug/Non Drug [...] Ordered Date Performed Result Body Sit e 33033-ZIXCBXO NAIL, 6 OR MORE 06/26/2024 N/A 51056-CNYG SKIN LESIONS, OVER 4 06/26/2024 N/A Encounters Encounter Location Date Provider Diagnosis [facility] [place] [address] [place] [address] 06/26/2024 Benjamin Landeros Type 1 diabetes mellitus [...] INSTRUCTIONS.pdf) Pending Test Test Name Order Date 10290-QZASUVC NAIL, 6 OR MORE 06/26/2024 50508-XJNQ SKIN LESIONS, OVER 4 06/26/20 24 Next Appt Details Follow Up: prn, Reason: Provider Name:Benjamin Landeros , 04/23/2025 01:30:00 PM, [address] [place], [address], Procedure Notes * Category Sub-Category Detail Notes [...] as necessary. Patient chooses, no pharmaceutical tx (54325) Keratoma Treatment Parring or Cutting o f Benign Hyperkeratotic Lesion(s) 38092 ( >4 Lesions) - The Benign hyperkeratotic lesions, as described above were pared, and/or cut utilizing a sterile #15 blade, tissue nippers, and/or dremel Progress Notes * Miriam NOGUEIRA JDOB: (73 yo F)Acc No.[id number]:06/26/2024 Progress Note Patient:?Tammie Nogueira Provider:?Benjamin Landeros DPM :1950???Age:73 Y???Sex:Female D ate:06/26/2024 Address[address], [id number] Pcp:Buddy Morrow MD Subjective: * Chief Complaints: [...] ?Marital status: . 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 * Medications:?TakingPantopraz ole Sodium 40 MG Tablet [...] 2.?Type 1 diabetes mellitus with diabetic polyneuropathy?Procedure: 72557-JUOIJNF NAIL, 6 OR MORE ?Procedure: 77401-URXF SKIN LESIONS, OVER 4 * Procedures:?Debride Nail 6-10:?Nail debridement?Nail debridement performed extensively to reduce/remove overall nail length, girth, thickness, subungual debris, and necrotic tissue, by manual and electrical means through the use of a nail nipper and/or dremel, to more viable healthy nail plate or bed tissue 1-5. Silver nitrate used for any petechial bleeding as necessary. Patient chooses, no pharmaceutical tx (09810).?Keratoma Treatment:?Parring or Cutting of Benign Hyperkeratotic Lesion(s)?36937 ( >4 Lesions) - The Benign hyperkeratotic lesions, as described above were pared, and/or cut utilizing a sterile #15 blade, tissue nippers, and/or dremel.? * Procedure Codes:?70681 DEBRI DE NAIL, 6 OR MORE, Modifiers: XS 71301 TRIM SKIN LESIONS, OVER 4, Modifiers: XS [...] Landeros DPM Date:?2023 Generated for Stephanie smith/Jareth/[place] on:?02/21/2025 04:04 PM EDT History and Physical [...]
== END 2025-02-21 13:20 | disposition home or self-care (01) ==
PROVIDERS: PCP Internal Medicine; Visit Provider Obstetrics & Gynecology
DX: C54.1 Malignant neoplasm of endometrium (principal)
CPT/HCPCS: 99213

== ENCOUNTER 2025-02-21 13:02 | Outpatient (REF) | payer MEDICARE, OTHER, SELFPAY ==
--- NOTE | ~2025-02-21 | XR_ITS ---
CLINICAL HISTORY: C54.1 - Malignant neoplasm of endometrium 2 view chest x-ray Comparison: None Findings: No consolidation or effusion. Heart size is normal. There is middle mediastinal fluid level, possible hiatal hernia. No acute fracture. IMPRESSION: 1. No acute findings. This document has been electronically signed by: Tra Bui MD on 02/22/2025 09:00:11
[2025-02-21 14:38] LABS: Blood Urea Nitrogen 12 mg/dL (9-16); Estimated Glomerular Filt Rate > 60
[2025-02-23 13:03] LABS: CA-125 63 U/mL (<35)
== END 2025-02-21 13:03 | disposition home or self-care (01) ==
LOC: HO.XRAY 13:02
PROVIDERS: PCP Internal Medicine; Visit Provider Obstetrics & Gynecology
DX: C54.1 Malignant neoplasm of endometrium (principal); N95.0 Postmenopausal bleeding
CPT/HCPCS: 36415; 71046; 82565; 84520; 86304; 99212

== ENCOUNTER → 2025-02-21 13:24 | Outpatient (BNV) | payer MEDICARE, OTHER, SELFPAY | PROVIDERS: PCP Internal Medicine; Visit Provider Specialist | DX: C54.1 Malignant neoplasm of endometrium (principal) | CPT/HCPCS: 71046 ==

== ENCOUNTER 2025-02-27 13:21 | Outpatient (REF) | payer MEDICARE, OTHER, SELFPAY ==
--- NOTE | ~2025-02-27 | CT_ITS ---
EXAMINATION: CT ABDOMEN PELVIS WITH IV CONTRAST HISTORY: C54.1 - Malignant neoplasm of endometrium COMPARISON: Correlation is made with a pelvic ultrasound dated 02/12/[address] dated 01/13/2024. TECHNIQUE: CT scan of the abdomen and pelvis was performed following administration of 85 mL Omnipaque 350 using standard departmental protocol. Coronal and sagittal reformatted images were generated and reviewed. The patient received oral contrast material. This CT exam was performed with one or more of the following dose reduction techniques: automated exposure control, adjustment of the mA and/or kV according to patient size, use of iterative reconstruction technique. DLP: 520 mGy-cm FINDINGS: LOWER CHEST: There is scarring at both lung bases. There is no pleural effusion. CARDIOVASCULATURE: The heart is normal in size. There is no pericardial effusion. LIVER: The liver is normal in size and contour. No liver mass is identified. The hepatic and portal veins are patent. GALLBLADDER / BILE DUCTS: The gallbladder is unremarkable. There is no intra or extrahepatic biliary ductal dilatation. SPLEEN: The spleen is normal in size. No focal splenic lesion is identified. PANCREAS: The pancreas is unremarkable in appearance. ADRENAL GLANDS: Within normal limits. KIDNEYS/RETROPERITONEUM: No renal calculi are identified. There is no hydronephrosis. There is a probable subcentimeter cyst at the lower pole of the left kidney. LYMPH NODES: There are multiple lymph nodes in the perez hepatis measuring up to 1.3 cm in size. No para-aortic lymphadenopathy is seen. VASCULATURE: The abdominal aorta demonstrates atherosclerotic calcification, but is normal in caliber. MESENTERY/PERITONEUM: No free fluid. No masses. There is no free intraperitoneal gas. STOMACH: There is a moderate to large hiatal hernia. There is a large amount of debris in the stomach, limiting evaluation. SMALL BOWEL: The small bowel is normal in caliber. COLON: There is a very large amount of stool throughout the colon. There is possible wall thickening of the lower rectum/anal region. APPENDIX: The appendix is not seen, however no inflammatory changes are seen adjacent to the cecum. URINARY BLADDER/PELVIC ORGANS: The urinary bladder is unremarkable. There is distention of the endometrial cavity. There is a probable 2.0 cm endometrial mass in the region of the fundus of the uterus. This may represent the patient's known endometrial carcinoma. Small calcifications of the uterus may represent fibroids. The ovaries are unremarkable in appearance. BONES / SOFT TISSUES: No suspicious bony or soft tissue abnormalities. CT/CT abdomen pelvis w IV con IMPRESSION: 1. Distention of the endometrial cavity with a probable 2.0 cm mass. This may represent the patient's known endometrial carcinoma. 2. Very large amount of stool throughout the colon. Possible wall thickening of the lower rectum/anal region. Clinical correlation is recommended. 3. Nonspecific perez hepatis lymph nodes which are not enlarged by CT criteria. Electronically signed by: Hugh Quiñonez MD 02/28/2025 08:14 AM EDT
--- OUTSIDE RECORDS SUMMARY | 2025-02-27 15:58 | XMS_ITS | Clinical Summary ---
Author Organization [facility] Address [address] [place] [address] Care Team Providers Care Technical Support Associate Name Role Phone Buddy Morrow MD Primary Care Provider [phone] Encounters Date Type Department Care Team Description 02/22/2025 [facility] [address] [place] [address] Nela De La Torre, RN Appointment from Last 3 Months Surgical History Surgery Date Site/Laterality Comments CHOLECYSTECTOMY 1969 PROCEDURE: HISTORICAL CHOLECYSTECTOMY APPENDECTOMY 1973 PROCEDURE: HISTORICAL APPENDECTOMY TONSILLECTOMY PROCEDURE: HISTORICAL TONSILLECTOMY OTHER SURGICAL HISTORY 05/17/2024 N/A PROCEDURE: IL LAPS RPR PARAESPHGL HRNA INCL FUNDPLSTY W/MESH Medical History Medical History Date Comments Coronary atherosclerosis of unspecified type of vessel, [place] or graft 07/25/2012 DX:Coronary atherosclerosis of unspecified type of vessel, [place] or graft HTN (hypertension) 07/25/2012 DX:HTN (hyper tension) Historical Medical DX 07/25/2012 DX:Hyperli pidemia LDL goal < 70 DM2 (diabetes mellitus, type 2) ([facility]) 07/25/2012 DX:DM2 (diabetes mellitus, t ype 2) ([facility]) Hypothyroid 07/25/2012 DX:Hypothyroid Social History Tobacco Use [...] 06/13/2024 10:19 AM EDT Plan of Treatment Upcoming Encounters Date Type Department Care Team (Late st Contact Info) Description 03/05/2025 2:20 PM EDT [facility] [place] [address] [facility] [address] [place] [address] Bessy Londono MD [address] [facility] [address] [place] [address] Health Maintenance Due Date Last Done Comments Diabetes: Annual GFR (Glomer ular Filtration Rate) 1948 Diabetes: Annual Foot Exam 1958 Diabetes: Annual Retina Eye Exam 1958 DTaP,Tdap,and Td Vaccines (1 - Tdap) 1967 Pneumococcal Vaccine: 50+ Ye ars (1 of 1 - PCV) 1998 Zoster Vaccines (1 of 2) 1998 RSV Immunization Adult Patie nts (1 - 1-dose 75+ series) 2023 Cholesterol [...] age to complete this topic Care Teams Technical Support Associate Relationship Specialty Start Date End Date Buddy Morrow MD [address] [place] [address] [address] [place] [address] PCP - General Internal Medicine 07/25/12
--- OUTSIDE RECORDS SUMMARY | 2025-02-27 15:58 | XMS_ITS | Encounter Summary ---
Author Organization [facility] Address [address] [place] [address] Care Team Providers Care Senior Cognos Developer Name Role Phone Buddy Morrow Primary Care Provider Unavailabl e Linda Melgar BUDGET ANALYST Unavailable Unavailable Nancy Lopez MD Unavailable Slava Hernández PA-C Unavailable [phone] Encounter Details Date Type Department Care Team Description 02/16/2018 Release of Information Medical Records [address] [place] [address] Abstract, Provider Social History Tobacco Use Types [...] on filedocumented in this encounter Care Teams Senior Cognos Developer Relationship Specialty Start Date End Date Buddy Morrow PCP - General Internal Medicine 07/25/12 Linda Melgar, BUDGET ANALYST Specialist Gastroenterology 04/18/24 Nancy Lopez MD Specialist Thoracic Surgery 04/18/24 Slava Hernández PA-C [address] [place] [phone] Specialist Thoracic Surgery 05/30/24 documented as of this encounter
--- OUTSIDE RECORDS SUMMARY | 2025-02-27 15:58 | XMS_ITS | Encounter Summary ---
Author Organization [facility] Address [address] [place] [address] Care Team Providers Care Molding Supervisor Name Role Phone Buddy Morrow Primary Care Provider UnavailLinda Coleman EROSION CONTROL COORDINATOR Unavailable Unavailable Nancy Lopez MD Unavailable Slava Hernández PA-C Unavailable [phone] Encounter Details Date Type Department Care Team Description 08/17/2024 Orders Only [facility] Thoracic Surgery [place] [address] [facility] [address] [place] [phone] Slava Hernández PA-C [address] [facility] [address] [place] [phone] S/P repair of paraesophageal hernia; Hiatal hernia Social History Tobacco Use Types Packs/Day Years Used Date Smoking Tobacco: Former Alcohol Use Standard Drinks/Week Comments Not Asked 0 (1 standard drink = 0.6 oz pur e alcohol) Sex Assigned at Date Recorded Not on file documented as of this encounter Plan of Treatment Not on file documented as of this encounter Procedures Procedure Name Priority Date/Time Associated Diagnosis Comments CHG RADIOLOGIC EXAM ESOPHAGUS SINGLE CONTRAST STUDY Routine 06/13/2024 S/P repair of paraesophageal hernia Hiatal hernia documented in this encounter Results * RADIOLOGIC EXAM ESOPHAGUS SINGLE CONTRAST STUDY (06/13/2024) Slava Hernández PA-C RADIOLOGY documented in this encounter Visit Diagnoses Diagnosis S/P repair of paraesophageal hernia Other postprocedural status Hiatal hernia Diaphragmatic hernia without mention of obstruction or gangrene documented in this encounter Care Teams Molding Supervisor Relationship Specialty Start Date End Date Buddy Morrow PCP - General Internal Medicine 07/25/12 Linda Melgar, EROSION CONTROL COORDINATOR Specialist Gastroenterology 04/18/24 Nancy Lopez MD Specialist Thoracic Surgery 04/18/24 Slava Hernández PA-C [address] [place] [phone] Specialist Thoracic Surgery 05/30/24 documented as of this encounter
--- OUTSIDE RECORDS SUMMARY | 2025-02-27 15:58 | XMS_ITS | Encounter Summary ---
Author Organization [facility] Address [address] [place] [address] Care Team Providers Care Top Case Assembler Name Role Phone Buddy Morrow Primary Care Provider Unavailabl e Linda Melgar SENIOR PROCESS ENGINEER Unavailable Unavailable Nancy Lopez MD Unavailable Slava Hernández PA-C Unavailable [phone] Encounter Details Date Type Department Care Team Description 01/04/2024 Hospital Medical Records [address] [place] [address] Destin Villalba MD Social History Tobacco Use [...] on filedocumented in this encounter Care Teams Top Case Assembler Relationship Specialty Start Date End Date Buddy Morrow PCP - General Internal Medicine 07/25/12 Linda Melgar SENIOR PROCESS ENGINEER Specialist Gastroenterology 04/18/24 Nancy Lopez MD Specialist Thoracic Surgery 04/18/24 Slava Hernández PA-C [address] [place] [phone] Specialist Thoracic Surgery 05/30/24 documented as of this encounter
--- OUTSIDE RECORDS SUMMARY | 2025-02-27 15:58 | XMS_ITS | Encounter Summary ---
Author Organization [facility] Address [address] [place] [address] Care Team Providers Care Web Mobile Designer Name Role Phone Buddy Morrow Primary Care Provider Unavailabl e Linda Melgar PE MANAGER Unavailable Unavailable Nancy Lopez MD Unavailable Slava Hernández PA-C Unavailable [phone] Encounter Details Date Type Department Care Team Description 04/16/2022 Transfer Records Medical Records [address] [place] [address] Abstract, Provider Social History Tobacco Use Types [...] on filedocumented in this encounter Care Teams Web Mobile Designer Relationship Specialty Start Date End Date Buddy Morrow PCP - General Internal Medicine 07/25/12 Linda Melgar, PE MANAGER Specialist Gastroenterology 04/18/24 Nancy Lopez MD Specialist Thoracic Surgery 04/18/24 Slava Hernández PA-C [address] [place] [address] Specialist Thoracic Surgery 05/30/24 documented as of this encounter
--- OUTSIDE RECORDS SUMMARY | 2025-02-27 15:58 | XMS_ITS | Encounter Summary ---
Author Organization [facility] Address [address] [place] [address] Care Team Providers Care Broadcast Supervisor Name Role Phone Buddy Morrow Primary Care Provider Unavailabl e Linda Melgar TEACHERS' ASSISTANT Unavailable Unavailable Nancy Lopez MD Unavailable Slava Hernández PA-C Unavailable [phone] Encounter Details Date Type Department Care Team Description 01/25/2024 Transfer Records Medical Records [address] [place] [id number] [place] [address] Social History Tobacco Use Types Packs/Day Years Used Date Smoking Tobacco: Former Alcohol Use Standard Drinks/Week Comments Not Asked 0 (1 standard drink = 0.6 oz pur e alcohol) Sex Assigned at Date Recorded Not on file documented as of this encounter Plan of Treatment Not on file documented as of this encounter Visit Diagnoses Not on filedocumented in this encounter Care Teams Broadcast Supervisor Relationship Specialty Start Date End Date Buddy Morrow PCP - General Internal Medicine 07/25/12 Linda Melgar, TEACHERS' ASSISTANT Specialist Gastroenterology 04/18/24 Nancy Lopez MD Specialist Thoracic Surgery 04/18/24 Slava Hernández PA-C [address] [place] [phone] Specialist Thoracic Surgery 05/30/24 documented as of this encounter
--- OUTSIDE RECORDS SUMMARY | 2025-02-27 15:59 | XMS_ITS | Encounter Summary ---
Author Organization [facility] Address [address] [place] [address] Care Team Providers Care Gang Investigator Name Role Phone Buddy Morrow Primary Care Provider Unavailabl e Linda Melgar MEDICAID SPECIALIST Unavailable Unavailable Nancy Lopez MD Unavailable Slava Hernández PA-C Unavailable [phone] Encounter Details Date Type Department Care Team Description 05/18/2024 Orders Only Medical Records [address] [place] [address] Slava Hernández PA-C [address] [phone] Social History Tobacco Use Types Packs/Day Years [...] on filedocumented in this encounter Care Teams Gang Investigator Relationship Specialty Start Date End Date Buddy Morrow PCP - General Internal Medicine 07/25/12 Linda Melgar, MEDICAID SPECIALIST Specialist Gastroenterology 04/18/24 Nancy Lopez MD Specialist Thoracic Surgery 04/18/24 Slava Hernández PA-C [address] [place] [phone] Specialist Thoracic Surgery 05/30/24 documented as of this encounter
--- OUTSIDE RECORDS SUMMARY | 2025-02-27 15:59 | XMS_ITS | Patient Health Record ---
Author Organization [facility] Address [address] [facility] [place] [address] Care Team Providers Care Sizing Machine Tender Name Role Phone Buddy Morrow MD Primary Care Provider Benjamin Skelton Unavailable [phone] Allergies Allergen (clinical drug ingredient) Drug/Non Drug [...] Problem Acquired hammer toe of right foot (3250658015169954 ) Other hammer toe(s) (acquired), right foot (M20.41) Active confirmed Response to treatment, Improvemen t Problem Acquired hammer toe of left foot ([id number] ) Other hammer toe(s) (acquired), left foot (M20.42) Active confirmed Response to treatment, Improvemen t Problem Polyneuropathy due to diabetes mellitus type I (850143859) 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 confirmed Vital Signs Blood pressure diastolic 70 mm Hg 01/15/2025 Height 5ft4in in 01/15/2025 Blood pressure systolic 103 mm Hg 01/15/2025 Weight 200 lbs 01/15/2025 BMI 34.33 kg/m2 01/15/2025 Procedures Procedure Date Ordered Date Performed Result Body Sit e 07421-BZHHNLT NAIL, 6 OR MORE 03/27/2024 N/A 47071-KHUP SKIN LESIONS, OVER 4 03/27/2024 N/A 71992-IHMDUXD NAIL, 6 OR MORE 06/26/2024 N/A 08038-ABFH SKIN LESIONS, OVER 4 06/26/2024 N/A 23335-BZOVIHD NAIL, 6 OR MORE 10/09/2024 N/A 59534-UARI SKIN LESIONS, OVER 4 10/09/2024 N/A 04943-NYZYVHT NAIL, 6 OR MORE 01/15/2025 N/A 07162-SXQB SKIN LESIONS, OVER 4 01/15/2025 N/A Encounters Encounter Location Date Provider Diagnosis [address] [address] 03/27/2024 Benjamin Leti Type 1 diabetes mellitus with diabetic polyneuropathy E10.42 and Tinea unguium B35.[address] [address] 06/26/2024 Benjamin Leti Type 1 diabetes mellitus with diabetic polyneuropathy E10.42 ; Tinea unguium B35.1 ; Other hammer toe(s) (acquired), right foot M20.41 and Other hammer toe(s) (acquired), left foot M20.[address] [address] 10/09/2024 Benjamin Leti Type 1 diabetes mellitus with diabetic polyneuropathy E10.42 and Tinea unguium B35.[address] [address] 01/15/2025 Benjamin Leti Type 1 diabetes mellitus [...] 02/11/2015 Hemoglobin A1c 12/02/2015 Hemoglobin A1c 06/03/2017 87584-CYEDBHH NAIL, 6 OR MORE 10/09/2024 15675-MYBLQVW NAIL, 6 OR MORE 01/15/2025 52350-VVORDCK NAIL, 6 OR MORE 09/12/2020 99429-BUPSNPY NAIL, 6 OR MORE 12/12/2020 71049-FUYQKRO NAIL, 6 OR MORE 03/13/2021 13772-ZLNCLYC NAIL, 6 OR MORE 06/12/2021 57988-TEBFEBD NAIL, 6 OR MORE 09/18/2021 67070-SVMTDNF NAIL, 6 OR MORE 12/18/2021 43988-VGUKQPY NAIL, 6 OR MORE 03/23/2022 98988-XCSWPWF NAIL, 6 OR MORE 06/25/2022 38439-YIGGHQW NAIL, 6 OR MORE 09/24/2022 90409-KBFDBZA NAIL, 6 OR MORE 12/24/2022 43606-TQSLHIZ NAIL, 6 OR MORE 03/25/2023 64487-IQGKMAO NAIL, 6 OR MORE 06/24/2023 74120-QDCJXKQ NAIL, 6 OR MORE 09/27/2023 16572-GPXRDCH NAIL, 6 OR MORE 12/27/2023 36599-MVWAHQA NAIL, 6 OR MORE 03/27/2024 65322-BLZAIUA NAIL, 6 OR MORE 06/26/2024 88349-QAFCRSV NAIL, 6 OR MORE 08/22/2015 75440-RQPILDT NAIL, 6 OR MORE 05/16/2015 66990-MKUSRYA NAIL, 6 OR MORE 02/11/2015 08424-FPGFXCW NAIL, 6 OR MORE 11/02/2013 73043-CRZMXOO NAIL, 6 OR MORE 02/01/2014 26255-MKZFSKY NAIL, 6 OR MORE 05/10/2014 56083-LWEQTMS NAIL, 6 OR MORE 08/13/2014 12389-HSENANJ NAIL, 6 OR MORE 11/12/2014 64886-FLEOQUI NAIL, 6 OR MORE 07/27/2011 17727-NVCUWAJ NAIL, 6 OR MORE 10/15/2011 78670-APLXTWA NAIL, 6 OR MORE 01/14/2012 54087-HFKETXZ NAIL, 6 OR MORE 04/11/2012 08676-FZXEOQD NAIL, 6 OR MORE 07/28/2012 90706-VPOZKVX NAIL, 6 OR MORE 10/13/2012 06246-IFEDCWE NAIL, 6 OR MORE 01/12/2013 63981-XWQLZEF NAIL, 6 OR MORE 04/13/2013 87168-GOYPQWW NAIL, 6 OR MORE 08/03/2013 69069-QEYQKII NAIL, 6 OR MORE 12/02/2015 12386-RCYFMQS NAIL, 6 OR MORE 03/02/2016 61782-TATQJXT NAIL, 6 OR MORE 06/11/2016 38008-GICLGGV NAIL, 6 OR MORE 09/10/2016 12924-EBOZEPJ NAIL, 6 OR MORE 12/10/2016 07145-JIJTUVX NAIL, 6 OR MORE 03/04/2017 77206-PCMDBNX NAIL, 6 OR MORE 06/07/2017 66135-IZPRWWF NAIL, 6 OR MORE 09/06/2017 15276-RBCWHBJ NAIL, 6 OR MORE 12/09/2017 99520-GUTNYPV NAIL, 6 OR MORE 03/10/2018 09355-JNAPWHW NAIL, 6 OR MORE 06/13/2018 22206-CXXTTOU NAIL, 6 OR MORE 09/12/2018 50332-RKEYJIB NAIL, 6 OR MORE 12/26/2018 66660-XSXGXZL NAIL, 6 OR MORE 03/27/2019 48399-VPLRZHP NAIL, 6 OR MORE 06/26/2019 85924-MQMEBQL NAIL, 6 OR MORE 09/25/2019 15328-RWIRWGN NAIL, 6 OR MORE 12/25/2019 86088-IBRYQJA NAIL, 6 OR MORE 06/13/2020 07122- Debride <25 sq cm 08/03/2013 33724-NUCC SKIN LESIONS, OVER 4 11/02/20 13 61380-NNSW SKIN LESIONS, OVER 4 11/12/20 14 42456-OZKD SKIN LESIONS, OVER 4 08/13/20 14 06571-ZDSP SKIN LESIONS, OVER 4 05/10/20 14 84089-SPJT SKIN LESIONS, OVER 4 02/02/20 14 75154-UNUU SKIN LESIONS, OVER 4 02/12/20 15 65004-LVTL SKIN LESIONS, OVER 4 05/16/20 15 19760-FSPJ SKIN LESIONS, OVER 4 08/22/20 15 36148-ORGJ SKIN LESIONS, OVER 4 12/02/19 16 62502-TCWJ SKIN LESIONS, OVER 4 06/13/20 20 24649-OKRE SKIN LESIONS, OVER 4 12/25/19 20 50583-UZNG SKIN LESIONS, OVER 4 09/25/20 19 32194-RQJI SKIN LESIONS, OVER 4 06/26/20 19 20608-QIKO SKIN LESIONS, OVER 4 03/27/20 19 79268-GPIG SKIN LESIONS, OVER 4 12/26/19 19 12612-XWKY SKIN LESIONS, OVER 4 09/12/20 18 61802-KZWR SKIN LESIONS, OVER 4 06/13/20 18 35754-ZMVW SKIN LESIONS, OVER 4 03/10/20 18 74897-UPBX SKIN LESIONS, OVER 4 12/09/19 18 47282-BWMS SKIN LESIONS, OVER 4 09/06/20 17 39233-BSKI SKIN LESIONS, OVER 4 03/04/20 17 02821-TAGO SKIN LESIONS, OVER 4 06/07/20 17 95074-ERHL SKIN LESIONS, OVER 4 12/10/19 17 11190-JGDA SKIN LESIONS, OVER 4 09/10/20 16 87054-YPND SKIN LESIONS, OVER 4 06/11/20 16 53298-FDLG SKIN LESIONS, OVER 4 03/02/20 16 33710-HRUT SKIN LESIONS, OVER 4 06/26/20 24 59029-JWRX SKIN LESIONS, OVER 4 03/27/20 24 74343-QOWA SKIN LESIONS, OVER 4 12/27/19 24 67335-TPOF SKIN LESIONS, OVER 4 09/27/20 23 89246-XFKH SKIN LESIONS, OVER 4 06/24/20 04213-UNEW SKIN LESIONS, OVER 4 03/25/20 93523-EWUW SKIN LESIONS, OVER 4 12/24/19 23 82359-NMOM SKIN LESIONS, OVER 4 09/24/20 17906-DHVL SKIN LESIONS, OVER 4 06/25/20 27126-OOPS SKIN LESIONS, OVER 4 03/23/20 63134-ZRTJ SKIN LESIONS, OVER 4 12/18/19 27560-SGXQ SKIN LESIONS, OVER 4 09/18/20 96314-ADGP SKIN LESIONS, OVER 4 06/12/20 45482-VUHB SKIN LESIONS, OVER 4 03/13/20 28770-JFTS SKIN LESIONS, OVER 4 12/12/19 21 24856-OLEB SKIN LESIONS, OVER 4 09/12/20 36991-DKOQ SKIN LESIONS, OVER 4 01/15/20 25 20282-GDTW SKIN LESIONS, OVER 4 10/09/20 24 48193-FOGC SKIN LESIONS, 2 TO 4 07/27/20 11 05052-FMUD SKIN LESIONS, 2 TO 4 04/13/20 13 85205-YZMQ SKIN LESIONS, 2 TO 4 01/12/20 13 29646-OZKI SKIN LESIONS, 2 TO 4 10/13/20 12 50581-BVZW SKIN LESIONS, 2 TO 4 07/28/20 12 79669-EROZ SKIN LESIONS, 2 TO 4 04/11/20 12 71417-PJLE SKIN LESIONS, 2 TO 4 01/14/20 12 24309-UZCT SKIN LESIONS, 2 TO 4 10/15/20 11 HEMOGLOBIN A1C (GLYCOHEMOGLOBIN) 020 Next Appt Details Provider Name:Benjamin Andersen Leti , 04/23/2025 01:30:00 PM, [address] [place] [address], [place], [address], Insurance Providers Payer Name Payer Address Payer Phone Subscriber Number Group Number Insured Name Patient Relationship to Insured Coverage Start Date Coverage End Date [employer] Medicare Adv-68185 [address] [address] [place] [address] [id number] Miriam Henry Self - patient is the insured [facility] Claims [facility] Office of Community Care [address] [address] [place] [address] [id number] Miriam Henry Self - patient is the [...]
--- OUTSIDE RECORDS SUMMARY | 2025-02-27 15:59 | XMS_ITS | Encounter Summary ---
Author Organization [facility] Address [address] [place] [address] Care Team Providers Care Regulatory Affairs Assistant Name Role Phone Buddy Morrow Primary Care Provider Unavailabl e Linda Melgar SHIFT ENGINEER Unavailable Unavailable Nancy Lopez MD Unavailable Slava Hernández PA-C Unavailable [phone] Encounter Details Date Type Department Care Team Description 05/17/2024 Hospital Medical Records [address] [place], [place] [id number] [place] [address] Social History Tobacco Use Types Packs/Day Years Used Date Smoking Tobacco: Former Alcohol Use Standard Drinks/Week Comments Not Asked 0 (1 standard drink = 0.6 oz pur e alcohol) Sex Assigned at Date Recorded Not on file documented as of this encounter Plan of Treatment Not on file documented as of this encounter Visit Diagnoses Not on filedocumented in this encounter Care Teams Regulatory Affairs Assistant Relationship Specialty Start Date End Date Buddy Morrow PCP - General Internal Medicine 07/25/12 Linda Melgar, SHIFT ENGINEER Specialist Gastroenterology 04/18/24 Nancy Lopez MD Specialist Thoracic Surgery 04/18/24 Slava Hernández PA-C [address] [place] [phone] Specialist Thoracic Surgery 05/30/24 documented as of this encounter
--- OUTSIDE RECORDS SUMMARY | 2025-02-27 15:59 | XMS_ITS ---
Author Organization [facility] Address [address] [facility] [place], [place] [address] Care Team Providers Care Cash Register Operator Name Role Phone Buddy Morrow MD Primary Care Provider Benjamin Skelton Unavailable [phone] Allergies Allergen (clinical drug ingredient) Drug/Non Drug [...] Ordered Date Performed Result Body Sit e 74850-FFHMJGU NAIL, 6 OR MORE 10/09/2024 N/A 19902-BZGA SKIN LESIONS, OVER 4 10/09/2024 N/A Encounters Encounter Location Date Provider Diagnosis [facility] [address] [address] 10/09/2024 Benjamin Landeros Type 1 diabetes mellitus with diabetic polyneuropathy E10.42 and Tinea unguium B35.1 Assessments Encounter Date Diagnosis (ICD Code) Assessment Notes Treatment Notes Treatment Clinical Notes Section Notes 10/09/2024 Type 1 diabetes mellitus with diabetic polyneuropathy (ICD-10 - E10.42) 10/09/2024 Tinea unguium (ICD-10 - B35.1) 10/09/2024 Other Plan Of Treatment Pending Test Test Name Order Date 08665-ICQWKFU NAIL, 6 OR MORE 10/09/2024 28488-FFVO SKIN LESIONS, OVER 4 10/09/20 24 Next Appt Details Follow Up: prn, Reason: Provider Name:Benjamin Landeros , 04/23/2025 01:30:00 PM, [address] [place] [address], [phone], Procedure Notes * Category Sub-Category Detail Notes [...] use of a nail nipper and/or dremel-type chicle grinder feeder, to a more viable healthy nail plate or bed tissue 6-10. Silver nitrate used for any petechial bleeding as necessary. Definitive antifungal treatment options have been reviewed and discussed with the patient. The patient chooses, no pharmaceutical tx - 69329 Keratoma Treatment Parring or Cutting o f Benign Hyperkeratotic Lesion(s) (-57) More than 4 Lesions - The Benign hyperkeratotic lesions, as described in exam, were pared, and/or cut utilizing a sterile 15 blade, tissue nippers, and/or dremel - 18784 Progress Notes * Miriam NOGUEIRA JDOB: (74 yo F)Acc No.[id number]:10/09/2024 Progress Note Patient:?ROLANDOODILIA Tammie yonathan Ward Provider:?Benjamin Landeros DPM :1950???Age:74 Y???Sex:Female D ate:10/09/2024 Address:[facility] [address], [facility] Pcp:Buddy Morrow MD Subjective: * Chief Complaints: [...] ?Marital status: . 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 * Medications:?TakingPantopraz ole Sodium 40 MG Tablet [...] use of a nail nipper and/or dremel-type chicle grinder feeder, to a more viable healthy nail plate or bed tissue 6-10. Silver nitrate used for any petechial bleeding as necessary. Definitive antifungal treatment options have been reviewed and discussed with the patient. The patient chooses, no pharmaceutical tx - 08965.?Keratoma Treatment:?Parring or Cutting of Benign Hyperkeratotic Lesion(s)?(-57) More than 4 Lesions - The Benign hyperkeratotic lesions, as described in exam, were pared, and/or cut utilizing a sterile 15 blade, tissue nippers, and/or dremel - 50429.? * Procedure Codes:?32609 DEBRI DE NAIL, 6 OR MORE, Modifiers: XS 27784 TRIM SKIN LESIONS, OVER 4, Modifiers: XS * Follow Up:?prn * Images: * Sign off status: Completed true * Provider:?Benjamin Landeros DPM Date:?2023 Generated for Stephanie smith/Jareth/Ania on:?02/27/2025 03:58 PM EDT History and Physical Notes * [...]
--- OUTSIDE RECORDS SUMMARY | 2025-02-27 15:59 | XMS_ITS ---
Author Organization [facility] Address [address] [facility] [place] [address] Care Team Providers Care State Epidemiologist Name Role Phone Buddy Morrow MD Primary Care Provider Benjamin Skelton Unavailable [phone] Allergies Allergen (clinical drug ingredient) Drug/Non Drug [...] Ordered Date Performed Result Body Sit e 74354-XNHGDEQ NAIL, 6 OR MORE 06/26/2024 N/A 66637-EHPH SKIN LESIONS, OVER 4 06/26/2024 N/A Encounters Encounter Location Date Provider Diagnosis [facility] [place] [address] [place] [address] 06/26/2024 Benjamin Landeros Type 1 diabetes mellitus [...] INSTRUCTIONS.pdf) Pending Test Test Name Order Date 32897-DQTXLDP NAIL, 6 OR MORE 06/26/2024 55762-RMBC SKIN LESIONS, OVER 4 06/26/20 24 Next Appt Details Follow Up: prn, Reason: Provider Name:Benjamin Landeros , 04/23/2025 01:30:00 PM, [address] [place], [address], Procedure Notes * Category Sub-Category Detail Notes [...] as necessary. Patient chooses, no pharmaceutical tx (07100) Keratoma Treatment Parring or Cutting o f Benign Hyperkeratotic Lesion(s) 99984 ( >4 Lesions) - The Benign hyperkeratotic lesions, as described above were pared, and/or cut utilizing a sterile #15 blade, tissue nippers, and/or dremel Progress Notes * Miriam NOGUEIRA JDOB: (73 yo F)Acc No.[id number]:06/26/2024 Progress Note Patient:?Tammie Nogueira Provider:?Benjamin Landeros DPM :1950???Age:73 Y???Sex:Female D ate:06/26/2024 Address[address], [place] Pcp:Buddy Morrow MD Subjective: * Chief Complaints: [...] ?Marital status: . 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 * Medications:?TakingPantopraz ole Sodium 40 MG Tablet [...] 2.?Type 1 diabetes mellitus with diabetic polyneuropathy?Procedure: 36612-OLIMTRR NAIL, 6 OR MORE ?Procedure: 49899-FROI SKIN LESIONS, OVER 4 * Procedures:?Debride Nail 6-10:?Nail debridement?Nail debridement performed extensively to reduce/remove overall nail length, girth, thickness, subungual debris, and necrotic tissue, by manual and electrical means through the use of a nail nipper and/or dremel, to more viable healthy nail plate or bed tissue 1-5. Silver nitrate used for any petechial bleeding as necessary. Patient chooses, no pharmaceutical tx (22524).?Keratoma Treatment:?Parring or Cutting of Benign Hyperkeratotic Lesion(s)?06777 ( >4 Lesions) - The Benign hyperkeratotic lesions, as described above were pared, and/or cut utilizing a sterile #15 blade, tissue nippers, and/or dremel.? * Procedure Codes:?49407 DEBRI DE NAIL, 6 OR MORE, Modifiers: XS 68455 TRIM SKIN LESIONS, OVER 4, Modifiers: XS [...] Landeros DPM Date:?2023 Generated for Stephanie smith/Jareth/Elitting on:?02/27/2025 03:59 PM EDT History and Physical Notes * [...] cture, No Charcot collapse/destruction noted at [facility] FOOTWEAR EVALUATION: worn, OT were inspe cted and noted to be severely worn , [...]
--- OUTSIDE RECORDS SUMMARY | 2025-02-27 15:59 | XMS_ITS | Encounter Summary ---
Author Organization [facility] Address [address] [place] [address] Care Team Providers Care Singe Machine Operator Name Role Phone Buddy Morrow MD Primary Care Provider [phone] Reason for Visit * Reason Onset Date Comments Appointment 02/22/2025 Encounter Details Date Type Department Care Team (Late Contact Info) Description 02/22/[address] [address] Nela De La Torer, SWAPNIL Appointment Social History Tobacco Use Types Packs/Day Years Used Date Smoking Tobacco: Former Alcohol Use Standard Drinks/Week Comments Not Asked 0 (1 standard drink = 0.6 oz pur e alcohol) Comments Unknown Sex and Gender Information Value Date Recorded Sex Assigned at Not on file Legal Sex Female 1:20 PM EST Gender Identity Not on file Sexual Orientation Not on file documented as of this encounter Progress Notes * Nela De La Torre RN - 02/22/2025 1:49 PM EDT Pt called as she has been referred by [facility] for new Endometrial Ca diagnosis. Her CT is scheduled for 02/28. I asked her to bring that CD in with her to her appointment. She was given appointment date, time and location. She was given our contact number if she has any questions prior to appointment documented in this encounter Plan of Treatment Upcoming Encounters Date Type Department Care Team (Late Contact Info) Description 03/05/2025 2:20 PM EDT Consult Breast [facility] [address] [facility] [address] [place] [phone] Bessy Londono MD [address] [facility] [address] [place] [address] documented as of this encounter Visit Diagnoses Not on filedocumented in this encounter Care Teams Singe Machine Operator Relationship Specialty Start Date End Date Buddy Morrow MD [address] [place] [address] PCP - General Internal Medicine 07/25/12 documented as of this encounter
--- OUTSIDE RECORDS SUMMARY | 2025-02-27 15:59 | XMS_ITS ---
Author Organization [facility] Address [address] [facility] [place], [place] [address] Care Team Providers Care Transfer Driver Name Role Phone Buddy Morrow MD Primary Care Provider Benjamin Skelton Unavailable [phone] Allergies Allergen (clinical drug ingredient) Drug/Non Drug [...] Ordered Date Performed Result Body Sit e 88910-PXOEGAB NAIL, 6 OR MORE 01/15/2025 N/A 56530-JNNM SKIN LESIONS, OVER 4 01/15/2025 N/A Encounters Encounter Location Date Provider Diagnosis [facility] [address] [address] 01/15/2025 Benjamin Landeros Type 1 diabetes mellitus [...] INSTRUCTIONS.pdf) Pending Test Test Name Order Date 30845-QOSLEIU NAIL, 6 OR MORE 01/15/2025 55615-QOXT SKIN LESIONS, OVER 4 01/15/20 25 Next Appt Details Follow Up: prn, Reason: Provider Name:Benjamin Landeros , 04/23/2025 01:30:00 PM, [address] [place], [address], Procedure Notes * Category Sub-Category Detail Notes [...] use of a nail nipper and/or dremel-type blanchard grinder operator, to a more viable healthy [...] to maintain effectiveness in symptomatic relief - 52140 Keratoma Treatment Parring or Cutting o f [...] instrumentation by the physician of record - 00247 Progress Notes * Miriam NOGUERIA JDOB: (74 yo F)Acc No.[id number]:01/15/2025 Progress Note Patient:Tammie GREEN Provider:?Benjamin Landeros DPM :1950???Age:74 Y???Sex:Female D ate:01/15/2025 Address:[facility] [address], [facility] Pcp:Buddy Morrow MD Subjective: * Chief Complaints: [...] ?Marital status: . 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 ???Drug/Alcohol:?AUDIT-C (Standard)?Did you have a drink containing [...] 2.?Type 1 diabetes mellitus with diabetic polyneuropathy?Procedure: 13852-PHHJVZX NAIL, 6 OR MORE ?Procedure: 45247-WMFE SKIN LESIONS, OVER 4 * Procedures:?Debride Nail [...] use of a nail nipper and/or dremel-type blanchard grinder operator, to a more viable healthy [...] to maintain effectiveness in symptomatic relief - 44949.?Keratoma Treatment:?Parring or Cutting of Benign Hyperkeratotic Lesion(s)?(-57) [...] instrumentation by the physician of record - 90152.? * Procedure Codes:?87242 DEBRI DE NAIL, 6 OR MORE, Modifiers: XS 62855 TRIM SKIN LESIONS, OVER 4, Modifiers: XS [...] Landeros DPM Date:?2024 Generated for Stephanie smith/Jareth/Ania on:?02/27/2025 03:58 PM [...]
[2025-02-27] MEDS: Barium Sulfate Oral (Mocha) 450 ML ORAL.SUSP 900 ML PO (16:55)
[2025-02-27] MEDS: iohexoL 350 MG/ML 100 ML INFUS..BTL IV (16:55)
== END 2025-02-27 13:22 | disposition home or self-care (01) ==
LOC: HO.CT 13:21
PROVIDERS: PCP Internal Medicine; Visit Provider Obstetrics & Gynecology
DX: C54.1 Malignant neoplasm of endometrium (principal)
CPT/HCPCS: 74177; Q9967

== ENCOUNTER → 2025-02-27 13:23 | Outpatient (BNV) | payer MEDICARE, OTHER, SELFPAY | PROVIDERS: PCP Internal Medicine; Visit Provider Radiology Diagnostic Radiology | DX: N85.8 Other specified noninflammatory disorders of uterus (principal); R19.5 Other fecal abnormalities; R59.0 Localized enlarged lymph nodes | CPT/HCPCS: 74177 ==

== ENCOUNTER 2025-03-18 12:21 | Outpatient (REF) | payer MEDICARE, OTHER, SELFPAY ==
--- OUTSIDE RECORDS SUMMARY | 2025-03-18 12:24 | XMS_ITS ---
Author [facility] Address [address] [place] [address] Care Team Providers Care Mechanics Supervisor Name Role Phone Buddy Morrow MD Primary Care Provider Benjamin Skelton Unavailable [phone] Allergies Allergen (clinical drug ingredient) Drug/Non Drug [...] Ordered Date Performed Result Body Sit e 94927-WDNKLNR NAIL, 6 OR MORE 06/26/2024 N/A 87266-IAOD SKIN LESIONS, OVER 4 06/26/2024 N/A Encounters Encounter Location Date Provider Diagnosis [facility] [place] [address] [place] [address] 06/26/2024 Benjamin Landeros Type 1 diabetes mellitus [...] INSTRUCTIONS.pdf) Pending Test Test Name Order Date 89446-RFSJGEL NAIL, 6 OR MORE 06/26/2024 31092-SEUF SKIN LESIONS, OVER 4 06/26/20 24 Next Appt Details Follow Up: prn, Reason: Provider Name:Benjamin Landeros , 04/23/2025 01:30:00 PM, [address] [place], [address], Procedure Notes * Category Sub-Category Detail Notes [...] as necessary. Patient chooses, no pharmaceutical tx (23558) Keratoma Treatment Parring or Cutting o f Benign Hyperkeratotic Lesion(s) 62172 ( >4 Lesions) - The Benign hyperkeratotic lesions, as described above were pared, and/or cut utilizing a sterile #15 blade, tissue nippers, and/or dremel Progress Notes * Miriam NOGUEIRA JDOB: (73 yo F)Acc No.[id number]:06/26/2024 Progress Note Patient:?Tammie Nogueira Provider:?Benjamin Landeros DPM :1950???Age:73 Y???Sex:Female D ate:06/26/2024 Address:[address], [id number] Pcp:Buddy Morrow MD Subjective: * Chief Complaints: [...] ?Marital status: . 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 * Medications:?TakingPantopraz ole Sodium 40 MG Tablet [...] 2.?Type 1 diabetes mellitus with diabetic polyneuropathy?Procedure: 05187-FAPIKXE NAIL, 6 OR MORE ?Procedure: 79433-VKFP SKIN LESIONS, OVER 4 * Procedures:?Debride Nail 6-10:?Nail debridement?Nail debridement performed extensively to reduce/remove overall nail length, girth, thickness, subungual debris, and necrotic tissue, by manual and electrical means through the use of a nail nipper and/or dremel, to more viable healthy nail plate or bed tissue 1-5. Silver nitrate used for any petechial bleeding as necessary. Patient chooses, no pharmaceutical tx (98519).?Keratoma Treatment:?Parring or Cutting of Benign Hyperkeratotic Lesion(s)?73272 ( >4 Lesions) - The Benign hyperkeratotic lesions, as described above were pared, and/or cut utilizing a sterile #15 blade, tissue nippers, and/or dremel.? * Procedure Codes:?37485 DEBRI DE NAIL, 6 OR MORE, Modifiers: XS 53262 TRIM SKIN LESIONS, OVER 4, Modifiers: XS [...] Landeros DPM Date:?2023 Generated for Stephanie smith/Jareth/Elitting on:?03/18/2025 12:24 PM EDT History and Physical Notes * [...]
--- OUTSIDE RECORDS SUMMARY | 2025-03-18 12:24 | XMS_ITS ---
Author Organization [facility] Address [address] [place], [place] [address] Care Team Providers Care Analytical Sciences Director Name Role Phone Buddy Morrow MD Primary Care Provider Benjamin Skelton Unavailable [phone] Allergies Allergen (clinical drug ingredient) Drug/Non Drug [...] Ordered Date Performed Result Body Sit e 77906-KHRBQWW NAIL, 6 OR MORE 01/15/2025 N/A 13130-JJAN SKIN LESIONS, OVER 4 01/15/2025 N/A Encounters Encounter Location Date Provider Diagnosis [facility] [address] [address] 01/15/2025 Benjamin Landeros Type 1 diabetes mellitus [...] INSTRUCTIONS.pdf) Pending Test Test Name Order Date 11404-RYRXHKP NAIL, 6 OR MORE 01/15/2025 07683-GTZY SKIN LESIONS, OVER 4 01/15/20 25 Next Appt Details Follow Up: prn, Reason: Provider Name:Benjamin Landeros , 04/23/2025 01:30:00 PM, [address] [place], [address], Procedure Notes * Category Sub-Category Detail Notes [...] to maintain effectiveness in symptomatic relief - 51238 Keratoma Treatment Parring or Cutting o f [...] instrumentation by the physician of record - 07285 Progress Notes * Miriam NOGUEIRA JDOB: (74 yo F)Acc No.[id number]:01/15/2025 Progress Note Patient:Tammie GREEN Provider:?Benjamin Landeros DPM :1950???Age:74 Y???Sex:Female D ate:01/15/2025 Address:[facility] [address] [facility] Pcp:Buddy Morrow MD Subjective: * Chief Complaints: [...] ?Marital status: . 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 ???Drug/Alcohol:?AUDIT-C (Standard)?Did you have a drink containing [...] 2.?Type 1 diabetes mellitus with diabetic polyneuropathy?Procedure: 22446-YYVFSKL NAIL, 6 OR MORE ?Procedure: 97164-CPNO SKIN LESIONS, OVER 4 * Procedures:?Debride Nail [...] to maintain effectiveness in symptomatic relief - 24999.?Keratoma Treatment:?Parring or Cutting of Benign Hyperkeratotic Lesion(s)?(-57) [...] instrumentation by the physician of record - 97103.? * Procedure Codes:?47008 DEBRI DE NAIL, 6 OR MORE, Modifiers: XS 60542 TRIM SKIN LESIONS, OVER 4, Modifiers: XS [...] Landeros DPM Date:?2024 Generated for Stephanie smith/Jareth/Elitting on:?03/18/2025 12:23 PM EDT History and Physical Notes * [...]
--- OUTSIDE RECORDS SUMMARY | 2025-03-18 12:24 | XMS_ITS | Clinical Summary ---
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 Active gabapentin (NEURONTIN) 600 mg tablet Take 1 tablet (600 mg total) by mouth 1 (one) time each day. Active simvastatin (ZOCOR) 40 mg tablet Take 1 tablet (40 mg total) by mouth at bedtime. Active levothyroxine (SYNTHROID, LEVOTHROID) 112 mcg tablet Take 1 tablet (112 mcg total) by mouth. Active amitriptyline (ELAVIL) 25 mg tablet Take 1 tablet (25 mg total) by mouth at bedtime. Active metoprolol tartrate (LOPRESSOR) 25 mg tablet Take 0.5 tablets (12.5 mg total) by mouth 2 (two) times a day. Active metFORMIN (FORTAMET) 1,000 mg 24 hr tablet Take 1 tablet (1,000 mg total) by mouth 1 (one) time each day with dinner. Do not crush, chew, or split. Active esomeprazole (NexIUM) [address] capsule Take 1 capsule (40 mg total) by mouth 1 (one) time each day before breakfast. Do not open capsule. Active exenatide microspheres (Bydureon BCise) 2 mg/0.85 mL auto-injector injection Inject 0.85 mL (2 mg total) under the skin. Active multivitamine, geriatric, (Multivitamin 50 Plus) tablet Take 1 tablet by mouth 1 (one) time each day. Active niacin 100 mg capsule Take 500 mg by mouth 1 (one) time each day. Active senna leaf extract (Senokot) 8.7 mg tablet,chewable Chew. Acti ve fish,bora,flax oils-om3,6,9no1 1,200 mg capsule Take by mouth. Active losartan (COZAAR) 25 mg tablet Take 1 tablet (25 mg total) by mouth 1 (one) time each day. Active mirabegron (MYRBETRIQ) 25 mg 24 hr tablet Take by mouth 1 (one) time each day. Active HYDROmorphone (DILAUDID) 2 mg tablet Take 1 tablet (2 mg total) by mouth every 4 (four) hours if needed for severe pain for up to 12 doses. Max Daily Amount: 12 mg 12 tablet 5 Active docusate sodium (COLACE) 100 mg capsule Take 1 capsule (100 mg total) by mouth 2 (two) times a day for 10 days. 20 each 5 03/21/20 25 Active acetaminophen (TYLENOL) 500 mg tablet Take 2 tablets (1,000 mg total) by mouth every 8 (eight) hours if needed for mild pain for up to 10 days. 30 tablet 5 03/21/20 25 Active Active Problems Problem Noted Date Diagnosed Date DM2 (diabetes mellitus, type 2) ([facility] V24, [facility] V28) HTN (hypertension) Hypercholesterolemia Hypothyroid Resolved Problems Problem Noted Date Diagnosed Date Resolved Date Endometrial cancer ([facility] V24, [facility] V28) 03/05/20 25 03/11/2025 Encounters Date Type Department Care Team Description 03/11/2025 3:35 PM EDT Anesthesia Event [facility] Main OR [address] [place] [phone] Barak Rick MD Chang, Daniel J MD 03/11/2025 1:30 PM EDT - 03/11/2025 5:00 PM EDT Surgery [facility] OR [address] [place] [phone] Bessy Londono MD DAVINCI assisted total laparoscopic hysterectomy, bilateral salpingo-oophorectom y, sentinel lymph node biopsy. [[id number] (CPT??)] 03/11/2025 11:57 AM EDT - 03/11/2025 7:14 PM EDT Hospital Encounter [facility] OR [address] [place] [phone] Bessy Londono MD Endometrial cancer (CMS/HCC V24, CMS/HCC V28) Discharge Disposition: Home or Self Care 03/06/2025 Telephone Pulmonology [facility] [address] [facility] [address] [place] [phone] Vivian Bassett RN 03/05/2025 2:20 PM EDT Consult [facility] [address] [facility] [address] [place] [phone] Bessy Londono MD Endometrial cancer (CMS/HCC V24, CMS/HCC V28) (Primary Dx) 02/22/2025 Telephone [facility] [address] [facility] [address] [place] [phone] Nela De La Torre, RN Appointment from Last 3 Months Surgical History Surgery Date Site/Laterality Comments CHOLECYSTECTOMY 09/28/1970 - 10/27/1970 APPENDECTOMY 01/27/1976 - 02/26/1976 TONSILLECTOMY HIATAL HERNIA REPAIR 05/17/2024 N/A Da Marli/laparoscopic Heller myotomy, paraesophageal hernia repair with mesh, and toupee fundoplication; EGD with savory dilation ROTATOR CUFF REPAIR 03/28/2019 - 04/27/2019 Right HIATAL HERNIA REPAIR 04/22/2021 Repair of paraesophageal hernia with mesh and gastropexy. ESOPHAGEAL DILATION 12/29/2023 - 01/26/2024 Medical History Medical History Date Comments Coronary atherosclerosis of unspecified type of vessel, [place] or graft 07/25/2012 HTN (hypertension) 07/25/2012 Hypercholesterolemia 07/25/2012 DM2 (diabetes mellitus, type 2) ([facility] V24, CM S/HCC V28) 07/25/2012 Hypothyroid 07/25/2012 Esophageal dysmotility Paraesophageal hernia Social History Tobacco Use Types Packs/Day Years Used Date Smoking Tobacco: Former Cigarettes Q uit: 1985 Tobacco Cessation:Counseling Given: Not Answered Alcohol Use Standard Drinks/Week Comments Yes 0 (1 standard drink = 0.6 oz pur e alcohol) RARELY Interpersonal Safety Answer Date Record ed Physical Abuse 03/11/2025 Verbal Abuse 03/11/2025 Comments No Sex and Gender Information Value Date Recorded Sex Assigned at Female 03/08/2025 10:54 AM EDT Legal Sex Female 1:20 PM EST Gender Identity Female 03/08/2025 10:54 AM EDT Sexual Orientation Straight 03/11/2025 11 :53 AM EDT Obstetrics History Last Filed Vital Signs Vital Sign Reading Time Taken Comments Blood Pressure 160/58 03/11/2025 6:39 PM EDT Pulse 65 03/11/2025 6:39 PM EDT Temperature 36.1 ??C (97 ??F) 03/11/2025 6:39 PM EDT Respiratory Rate 20 03/11/2025 6:39 PM EDT Oxygen Saturation 100% 03/11/2025 6:39 PM EDT Inhaled Oxygen Concentration - - Weight 91.6 kg (202 lb) 03/05/2025 2:22 PM EDT Height 162.6 cm (5' 4 ) 03/05/2025 2:22 PM EDT Body Mass Index 34.67 03/05/2025 2:22 PM EDT Plan of Treatment Upcoming Encounters Date Type Department Care Team (Late st Contact Info) Description 03/26/2025 11:40 AM EDT Office Visit [facility] [address] [facility] [address] [place] [phone] Bessy Londono MD [address] [facility] [address] [place] [address] Health Maintenance Due Date Last Done Comments Diabetes: Annual Foot Exam 1960 Diabetes: Annual Retina Eye Exam 1960 DTaP,Tdap,and Td Vaccines (1 - Tdap) 1967 Pneumococcal Vaccine: 50+ Years (1 of 2 - PCV) 1967 Zoster Vaccines (1 of 2) 1967 RSV Immunization Adult Patients (1 - 1-dose 75+ series) 2023 Cholesterol Screening (Lipid Panel) 06/26/2024 Depression Screening 06/26/2024 Diabetes: Annual Urine Albumin-Creatinine Ratio (uACR) 06/26/2024 Diabetes: Blood Sugar Control Test (HGBA1C) 06/26/2024 Hepatitis C Screening 06/26/2024 Medicare Annual Wellness Visit 06/26/2024 Osteoporosis Screening (Bone Density Screening) 06/26/2024 Social Influencers of Health Screening 06/26/2024 COVID-19 Vaccine (7 - Moderna risk season) 2025 09/07/2024, 02/22/2024, 09/25/2022, Additional history exists Diabetes: Annual GFR (Glomerular Filtration Rate) 03/08/2026 03/08/2025 Hypertension/CHF/CAD Annual BMP Blood Test 03/08/2026 03/08/2025 Falls Risk Assessment 03/11/2026 03/11/2025 Influenza Vaccine Completed 12/18/2024, , 09/25/2022, Additional history exists HIB Vaccines Aged Out No longer eligi [...] age to complete this topic Meningococcal B Vaccine Aged Out No l onger eligible based on patient's age to complete this topic RSV Immunization Patients Under 20 months Aged Out No longer eligible based on patient's age to complete this topic Varicella Vaccines Aged Out No longer eligible based on patient's age to complete this topic Procedures Procedure Name Priority Date/Time Associated Diagnosis Comments OXYGEN THERAPY, ADULT Routine 03/11/2025 5:34 PM EDT TISSUE EXAM Routine 03/11/2025 4:36 PM EDT Endometrial cancer (CMS/HCC V24, CMS/HCC V28) NON-GYNECOLOGIC CYTOLOGY Routine 03/11/2025 4:27 PM EDT Endometrial cancer (CMS/HCC V24, CMS/HCC V28) TH AN ENDOTRACHEAL(NO CHARGE) Routine 03/11/2025 4:03 PM EDT HI LAP SURG W TOTAL HYSTERECTOMY FOR UTERUS 250G OR LESS W REM TUBE & OVARY 03/11/2025 3:34 PM EDT Endometrial cancer (CMS/HCC V24, CMS/HCC V28) Case Notes 23-HR BED Special Needs 180 min. Urgent POCT GLUCOSE BLOOD Routine 03/11/2025 12 :17 PM EDT PROCEDURAL ECG Routine 03/08/2025 11:16 AM EDT Endometrial cancer (CMS/HCC V24, CMS/HCC V28) CBC WITH AUTO DIFFERENTIAL Routine 03/08/2025 11:06 AM EDT Endometrial cancer (CMS/HCC V24, CMS/HCC V28) CBC AND DIFFERENTIAL Routine 03/08/2025 11:06 AM EDT Endometrial cancer (CMS/HCC V24, CMS/HCC V28) TYPE AND SCREEN Routine 03/08/2025 11:06 AM EDT Endometrial cancer (CMS/HCC V24, CMS/HCC V28) BASIC METABOLIC PANEL Routine 03/08/2025 11:06 AM EDT Endometrial cancer (CMS/HCC V24, CMS/HCC V28) from Last 3 Months Results * Tissue exam (03/11/2025 4:36 PM EDT) Addendum MISMATCH REPAIR PROTEIN IMMUNOHISTOCHEMISTRY: MLH1: Intact nuclear expression MSH2: Intact nuclear expression MSH6: Intact nuclear expression PMS2: Intact nuclear expression Background nonneoplastic tissue/internal control with intact nuclear expression External controls stained appropriately IHC Interpretation: No loss of nuclear expression of MMR proteins: low probability of MSI-H There are exceptions to the above IHC interpretations. These results should not be considered in isolation, and clinical correlation with genetic counseling is recommended to assess the need for germline testing. P53: Wild type. FFPE Block: C6 Cold Ischemia and Fixation Times: Meets requirements specified in the latest version of the ASCO/CAP guidelines These tests have not been validated for use on decalcified tissue, non-formalin fixed tissue, or tissue fixed outside of the ASCO/CAP guidelines. Method: Polymer HRP Monoclonal antibody for in vitro diagnostic use: MLH1: ES05, MSH2: 79H11, MSH6: EP49, PMS2: EP51, all from [employer] Staining evaluation: Positive - any nuclear staining in target cells These immunohistochemical tests were developed and their performance characteristics were determined by [facility]. They have not been cleared or approved by the U.S. Food and Drug Administration. The FDA has determined that such clearance or approval is not necessary. These tests are used for clinical purposes. They should not be regarded as investigational or for research. This laboratory is certified under the Clinical Laboratory Improvement Amendments of 1988 (CLIA) as qualified to perform high complexity clinical laboratory testing. This pattern is that of no specific molecular phenotype (NSMP). There is no change to the diagnosis. 10:[address] [facility] Addendum electronically signed by Mayra Colón MD on 03/15/2025 at 10:20 AM Final Diagnosis A. Lymph Node, #1 sentinel node, left external iliac: One benign lymph node, negative for metastatic carcinoma (0/1). B. Lymph Node, #2 sentinel node, right external iliac: Three benign lymph nodes, negative for metastatic carcinoma (0/3). C. Uterus, cervix, bilateral tubes and ovaries; hysterectomy with bilateral salpingectomy: Endometrial endometrioid adenocarcinoma, FIGO grade II. Tumor is exophytic, measuring 4.5 cm in greatest dimension, filling cavity and extending through os. Majority of the tumor is exophytic; invasion is superficial with less than 1/2 myometrium involved. Leiomyomas with calcifications. Endometrium with cystic atrophy and benign endometrial polyp. Cervix is uninvolved and negative for dysplasia. Ovaries and fallopian tubes are uninvolved. D. Pelvis, cul-de-sac nodule, biopsy: Acute inflammation and mesothelial cell proliferation. Negative for carcinoma. AJCC 8th ed. Stage pT1aN0(sn) FIGO 2018 stage IA FIGO 2022 stage IA2 10:20 AM T [facility] Comment MMR and p53 immunohistochemical tests are pending and will be reported as an addendum. 5 10:20 AM T [facility] Gross Description A. Lymph Node, #1 sentinel node, left exnternal iliac: Labeled #1 sentin lymph node ID 2 . Received in formalin is a 1.2 x 0.9 x 0.5 cm lymph node with minimal attached adipose tissue. The cut surfaces of the lymph node are soft, pandey-yellow to red and focally hemorrhagic. The attached adipose tissue is trimmed and the lymph node is submitted in entirety in one cassette, four pieces, x 2, with two unstained slides in between. B. Lymph Node, #2 sentinel node, right exnternal iliac: Labeled #2 sentin lymph node ID 3 . Received in formalin is a 4.5 x 4.0 x 0.7 cm soft, fibrovascular portion of adipose tissue which is dissected to show three lymph nodes measuring 0.45 cm, 1.2 cm and 1.8 cm in greatest diameter. The cut surfaces of the lymph nodes are pandey-pink to red with a minimal white stippling. Some of the attached adipose tissue is trimmed and the lymph nodes are submitted in entirety in four cassette, x 2, with two unstained slides in between. 1-one bisected lymph node, two pieces 2-one lymph node serially sectioned, five pieces 3-4 one lymph node serially sectioned, four and five pieces respectively C. Uterus, uterus, cervix, bilateral tubes and ovaries: Labeled uterus c . Received in formalin is a 155 gram symmetrical uterine corpus with attached cervix and bilateral adnexal structures. The uterine corpus measures 5.5 cm (lower uterine segment to fundus) x 5.5 cm (cornu to cornu) x up to 5.0 cm (anterior to posterior). The serosa is pandey-red and glistening. The lateral borders and paracervical tissues are cauterized. The attached cervix measures 3.5 cm in length and 2.5 cm in width. The ectocervical mucosa is white to red and hemorrhagic with with a minimal blue staining and a central, patent, slit-like, 0.5 cm in greatest diameter os. Pandey-white to pink friable material, in keeping with tumor mass exudes from the os. The specimen is opened. The endocervical lining is pandey to red and glistening. The cut surfaces of the cervix are white and rubbery with a blue staining and a few mucus-filled nabothian cysts. The dilated endometrial cavity measures 4.5 cm in length and 3.5 cm in width. The endometrium is completely filled/entirely replaced with a pandey-pink to red, friable, slightly polypoid mass (4.5 x 3.5 cm). The majority of the mass detaches from the underlying endometrium, upon manipulation. There is minimal loosely attached anterior mass. The endometrium on the posterior aspect is pandey-red and slightly nodular to bosselated with bosselated areas measuring up to 0.7 cm in greatest diameter. Additionally the fundus of the anterior and posterior wall contains a 2.0 cm in greatest diameter intramural nodule. The mass focally involves the anterior and posterior lower uterine segment, coming to 0.9 cm of the radial surface. Cervical stroma invasion is not identified grossly. There is no invasion of the underlying myometrium on the anterior posterior aspect. The mass has a maximal thickness of 0.15 cm on the posterior aspect, coming to 0.8 cm of the nearest serosal surface. The mass has a maximal thickness of 0.9 cm on the anterior aspect, coming to 0.25 cm of the anterior serosa. The closest serosal surface is is in the region of the thinned myometrium, contiguous with the intramural fundic nodule. The uninvolved myometrium is pandey-pink, rubbery and measures approximately 1.0-1.5 cm. There are a few additional posterior intramural nodules measuring up to 0.7 cm in greatest diameter. The nodules are all white and homogeneous with no areas of hemorrhage or necrosis. The attached right and left ovaries measure approximately 2.0 x 1.5 x 1.0 cm. Each has an intact white, cerebriform capsule. The cut surfaces show a pandey rubbery stroma. The attached fimbriated fallopian tube segments measure approximately 5.0 x 0.5 cm. Each has a purple to min serosa and sectioning shows a central, pinpoint lumen. There are bilateral tiny paratubal cysts. The right mesosalpinx has attached adipose tissue and contains markedly dilated vessels. [employer] sections are submitted in twenty-seven cassettes. 1-anterior cervix, one piece 2-posterior lower uterine segment, one piece (endometrial end inked green). 3-6 anterior endomyometrium submitted sequentially from lower uterine segment to fundus (six-contains underlying nodule), one piece each 7-8 sections of nodule with underlying serosa-myometrium, one and two pieces respectively 9-posterior cervix, one piece 10-11 posterior lower uterine segment (endometrial end inked green, one piece each 12-19 posterior endomyometrium submitted sequentially from lower uterine segment to fundus including the nodule involving the anterior and posterior wall (18) and additional nodules 20-22 charter representative sections of detached mass, multiple pieces each 23-right ovary, two pieces 24-right fallopian tube including cross-section and the longitudinally sectioned fimbriated end, four pieces 25-right mesosalpinx, one piece 26-left ovary, two pieces 27-left fallopian tube including cross-section and the longitudinally sectioned fimbriated end, four pieces D. Pelvis, cul-de-sac: Labeled cul-de-sa pelvis ID 5 . Received in formalin are three soft to rubbery white, fibromembranous portions of tissue with minimal attached brown grumous material. The specimen is submitted in toto in one space are cassette, three pieces. TS 5 10:[address] [facility] Synoptic Checklist ENDOMETRIUM ENDOMETRIUM - All Specimens AJCC 8 - Protocol posted: 11/07/2024 SPECIMEN ?? Procedure: ?Total hysterectomy ?? Procedure: ?Bilateral salpingo-oophorectomy TUMOR ?? Tumor Size: ?Greatest gross dimension (Centimeters): 4.5 cm ? Additional Dimension (Centimeters): ?3.5 cm ?? Histologic Type: ?Endometrioid carcinoma ?? Histologic Grade: ?FIGO grade 2 ?? Molecular Type: ? MMR Immunohistochemistry: ?MMR immunohistochemistry pending ? Microsatellite Instability (MSI) Testing: ?Not performed ?? Molecular Type: ? p53 Immunohistochemistry: ?p53 immunohistochemistry pending ? TP53 Mutation Testing: ?Not performed ?? Molecular Type: ? POLE Status: ?POLE testing cannot be performed / not available ?? ProMisE Classification: ?Testing pending: MMR and p53 immunohistochemistry pending. As per EMR, MMR were intact on biopsy, but has not been reviewed here. P53 result not available/ not performed on biopsy. ?? Myometrial Invasion: ?Present, inner half (less than 50%) ? Percentage: ?25 % ?? Adenomyosis: ?Not identified ?? Uterine Serosal Involvement: ?Not identified ?? Lower Uterine Segment Involvement: ?Not identified ?? Cervical Involvement: ?Not identified ?? Other Tissue / Organ Involvement: ?Not identified (other tissues / organs submitted and not involved) ?? Peritoneal / Pelvic Washings / Ascitic Fluid: ?Negative for malignant cells ?? Lymphatic and / or Vascular Invasion: ?Present ? : ?Less than or equal to 4 foci ? Number of Foci: ?1 REGIONAL LYMPH NODES ?? Regional Lymph Node Status: ? : ?All regional lymph nodes negative for tumor cells ? Lymph Nodes Examined: ? Total Number of Pelvic Nodes Examined: ?4 ? Number of Pelvic [place] Nodes Examined: ?4 ? Total Number of Para-aortic Nodes Examined: ?0 pTNM CLASSIFICATION (AJCC 8th Edition) ?? Reporting of pT, pN, and (when applicable) pM categories is based on information available to the pathologist at the time the report is issued. As per the AJCC (Chapter 1, 8th Ed.) it is the managing physician's responsibility to establish the final pathologic stage based upon all pertinent information, including but potentially not limited to this pathology report. ?? pT Category: ?pT1a ?? pN Category: ?pN0 ?? N Suffix: ?(sn) FIGO STAGE ?? FIGO Stage (FIGO 2009 Staging / 2018 FIGO Cancer Report): ?IA ?? FIGO Stage (2022 Staging for Cancer of the Endometrium): ?IA2 ADDITIONAL FINDINGS ?? Additional Findings: ?Cystic atrophy 5 10:20 AM EDT [facility] Disclaimer Unless otherwise specified, all tissue is 10% NB formalin fixed and paraffin embedded. 5 10:20 AM EDT [facility] Lymph Node Lymph node specimen / Unknown 03/11/2025 4:36 PM EDT 03/12/2025 6:08 AM EDT Lymph node tissue specimen (specimen) Lymph node specimen / Unknown 03/11/2025 4:40 PM EDT 03/12/2025 6:08 AM EDT Tissue specimen (specimen) Uterine structure / Unknown 03/11/2025 4:53 PM EDT 03/12/2025 6:08 AM EDT Tissue specimen (specimen) Pelvic region / Unknown 03/11/2025 4:57 PM EDT 03/12/2025 6:08 AM EDT us Bessy Londono MD LAB PATHOLOGY ORDERABLES Edited Result - Final [facility] [address] [place] [address], * Non-gynecologic cytology (03/11/2025 4:27 PM EDT) Final Diagnosis Peritoneal Washings, (ThinPrep, cell block): Negative for malignant cells. Mesothelial cells and scattered inflammatory cells present. 03/13/2025 4:45 PM EDT [facility] Specimen A Adequacy Satisfactory for evaluation 03/13/2025 4:45 PM EDT [facility] Gross Description A. Peritoneal Washings, pelvic washings: Received in Cytolyt 45 ml of clear fluid; 1 ThinPrep, 1 cell block Cell block in formalin @12:00-total formalin fixation time 9 hours. 03/13/2025 4:45 PM EDT [facility] Disclaimer Unless otherwise specified, all tissue is 10% NB formalin fixed and paraffin embedded. Technical cytopathology services provided by [facility], at [address] [place] [address] (CLIA # [id number]/Becki Hernandez MD, Battalion Chief.) 03/13/2025 4:45 PM EDT [facility] Wash Specimen obtained by peritoneal lavage / Unknown 03/11/2025 4:27 PM EDT 03/12/2025 12:16 PM EDT Bessy Londono MD LAB CYTOLOGY ORDERABLES Final Re sult [facility] [address] [place] [address], [place] [phone] * TH AN ENDOTRACHEAL(NO CHARGE) (03/11/2025 4:03 PM EDT) Narrative Nan Rajan CRNA - 03/11/2025 4:03 PM EDT Nan Rajan CRNA ? 03/11/2025 ??4:07 PM General Information and Staff Patient location during procedure: OR Performed by: Nan Rajan CRNA Authorized by: Barak Rick MD ?? Intubation Airway not difficult Urgency: elective Final Airway Details Successful intubation technique: direct laryngoscopy Blade: Khushi Blade size: #3 Cormack-Lehane Classification: grade I - full view of glottis Placement verified by: chest auscultation Measured from: lips Number of attempts at approach: 1Final airway type: endotracheal airway Indications and Patient Condition Indications for airway management: anesthesia Spontaneous ventilation: present Soft Tissue Damage: No Dentition Unchanged: Yes Patient position: neutral Mask difficulty assessment: 1 - vent by mask us Barak Rick MD ANESTHESIA ORDERABLES Final Re sult * (ABNORMAL) POCT Glucose, blood (03/11/2025 12:17 PM EDT) Glucose POCT 211(H) 70 - 100 mg/dL 03/11/2025 12:19 PM EDT [facility] Blood Capillary blood specimen / Unknown 03/11/2025 12:17 PM EDT 03/11/2025 12:20 PM EDT Bessy Londono MD LAB POINT OF CARE TE ST DOCKED DEVICE UNSOLICITED RESULTS Final Result [facility] [address] [place] [address], [place] [phone] * ECG 12 lead - Procedural (No Charge) (03/08/2025 11:16 AM EDT) Ventricular Rate ECG 69 BPM GEMUSE Atrial Rate 69 BPM GEMUSE P-R Interval 242 ms GEMUSE QRS Duration 88 ms GEMUSE Q-T Interval 416 ms GEMUSE QTc 445 ms GEMUSE P Wave [place] -3 degrees GEMUSE R [place] 20 degrees GEMUSE T [place] 49 degrees GEMUSE ECG Interpretation Sinus rhythm with 1st degree A-V block Otherwise normal ECG No previous ECGs available Confirmed by ROLAND RAMIREZ ([id number]) on 03/09/2025 10:26:02 AM GEMUSE 03/08/2025 11:1 6 AM EDT 03/09/2025 10:26 AM EDT us Bessy Londono MD ECG ORDERABLES Final Result GEMUSE * CBC auto differential (03/08/2025 11:06 AM EDT) WBC 7.5 4.8 - 10.8 K/mcL LAB HEMETOLOGY METHOD 03/08/2025 11:42 AM [facility] RBC 4.30 3.80 - 4.80 M/mcL LAB HEMETOLOGY METHOD 03/08/2025 11:42 AM [facility] Hemoglobin 12.7 11.5 - 16.0 g/dL LAB HEMETOLOGY METHOD 03/08/2025 11:42 AM [facility] Hematocrit 38.7 35.0 - 47.0 % LAB HEMETOLOGY METHOD 03/08/2025 11:42 AM [facility] MCV 89.6 79.0 - 98.0 FL LAB HEMETOLOGY METHOD 03/08/2025 11:42 AM [facility] MCH 29.4 27.0 - 32.0 pcg LAB HEMETOLOGY METHOD 03/08/2025 11:42 AM [facility] MCHC 32.8 32.0 - 37.0 g/dL LAB HEMETOLOGY METHOD 03/08/2025 11:42 AM [facility] RDW 12.8 11.0 - 15.0 % LAB HEMETOLOGY METHOD 03/08/2025 11:42 AM [facility] Platelets 255 130 - 400 K/mcL LAB HEMETOLOGY METHOD 03/08/2025 11:42 AM [facility] MPV 10.6 7.0 - 11.0 FL LAB HEMETOLOGY METHOD 03/08/2025 11:42 AM [facility] NRBC 0.0 <1.0 % LAB HEMETOLOGY METHOD 03/08/2025 11:42 AM [facility] NRBC Absolute 0.00 <0.10 K/mcL LAB HEMETOLOGY METHOD 03/08/2025 11:42 AM [facility] Neutrophils Relative 65.8 % LAB HEMETOLOGY METHOD 03/08/2025 11:42 AM [facility] Lymphocytes Relative 23.1 % LAB HEMETOLOGY METHOD 03/08/2025 11:42 AM [facility] Monocytes Relative 7.8 % LAB HEMETOLOGY METHOD 03/08/2025 11:42 AM [facility] Eosinophils Relative 2.1 % LAB HEMETOLOGY METHOD 03/08/2025 11:42 AM [facility] Basophils Relative 0.8 % LAB HEMETOLOGY METHOD 03/08/2025 11:42 AM [facility] Immature Granulocytes Relative 0.4 % LAB HEMETOLOGY METHOD 03/08/2025 11:42 AM [facility] Neutrophils Absolute 4.95 1.50 - 7.00 K/mcL LAB HEMETOLOGY METHOD 03/08/2025 11:42 AM [facility] Lymphocytes Absolute 1.74 1.00 - 5.00 K/mcL LAB HEMETOLOGY METHOD 03/08/2025 11:42 AM [facility] Monocytes Absolute 0.59 0.20 - 1.00 K/mcL LAB HEMETOLOGY METHOD 03/08/2025 11:42 AM [facility] Eosinophils Absolute 0.16 0.00 - 0.50 K/mcL LAB HEMETOLOGY METHOD 03/08/2025 11:42 AM [facility] Basophils Absolute 0.06 0.00 - 0.20 K/mcL LAB HEMETOLOGY METHOD 03/08/2025 11:42 AM [facility] Immature Granulocytes Absolute 0.03 0.00 - 0.03 K/mcL LAB HEMETOLOGY METHOD 03/08/2025 11:42 AM [facility] Blood Venous blood specimen / Unknown Venipuncture / Unknown 03/08/2025 11:06 AM EDT 03/08/2025 11:26 AM EDT us Bessy Londono MD LAB BLOOD ORDERABLES Final Resul t Performing Organization Address [facility]/ZIP Co de Phone Number [facility] [address] [place] [address], [place] [phone] * Type and screen (03/08/2025 11:06 AM EDT) Pathologist [facility] O 03/08/2025 12:43 PM EDT [facility] Rh Type Positive 03/08/2025 12:43 PM EDT [facility] Antibody Screen Negative 03/08/2025 12:43 PM EDT [facility] Blood Venous blood specimen / Unknown Venipuncture / Unknown 03/08/2025 11:06 AM EDT 03/08/2025 11:26 AM EDT us Bessy Londono MD LAB BLOOD BANK TEST ORDERABLES F inal Result [facility] [address] [place] [address], [place] [phone] * (ABNORMAL) Basic metabolic panel (03/08/2025 11:06 AM EDT) [facility] Sodium 139 133 - 145 mmol/L LAB CHEMISTRY METHOD 03/08/2025 11:58 AM [facility] Potassium 3.3(L) 3.5 - 5.5 mmol/L LAB CHEMISTRY METHOD 03/08/2025 11:58 AM EDT [facility] Chloride 104 96 - 110 mmol/L LAB CHEMISTRY METHOD 03/08/2025 11:58 AM T [facility] CO2 27 21 - 32 mmol/L LAB CHEMISTRY METHOD 03/08/2025 11:58 AM EDT [facility] Anion Gap 8 3 - 11 LAB CHEMISTRY METHOD 03/08/2025 11:58 AM EDT [facility] Glucose 196(H) 70 - 100 mg/dL LAB CHEMISTRY METHOD 03/08/2025 11:58 AM EDT [facility] BUN 10 5 - 25 mg/dL LAB CHEMISTRY METHOD 03/08/2025 11:58 AM EDT [facility] Creatinine 1.06 0.50 - 1.10 mg/dL LAB CHEMISTRY METHOD 03/08/2025 11:58 AM EDT [facility] eGFR 55(L) >=60 mL/min/1. 73m2 LAB CHEMISTRY METHOD 03/08/2025 11:58 AM EDT [facility] Comment:Calculation based on the??Chronic Kidney Disease Epidemiology Collaboration (CKD-EPI) equation refit??without adjustment for race. 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
--- OUTSIDE RECORDS SUMMARY | 2025-03-18 12:24 | XMS_ITS ---
Author Organization [facility] Address [address] [facility] [place], [place] [address] Care Team Providers Care Glove Sewer Name Role Phone Buddy Morrow MD Primary Care Provider Benjamin Skelton Unavailable [phone] Allergies Allergen (clinical drug ingredient) Drug/Non Drug [...] Ordered Date Performed Result Body Sit e 78366-WUYIWHE NAIL, 6 OR MORE 10/09/2024 N/A 46469-JNQH SKIN LESIONS, OVER 4 10/09/2024 N/A Encounters Encounter Location Date Provider Diagnosis [facility] [address] [address] 10/09/2024 Benjamin Landeros Type 1 diabetes mellitus with diabetic polyneuropathy E10.42 and Tinea unguium B35.1 Assessments Encounter Date Diagnosis (ICD Code) Assessment Notes Treatment Notes Treatment Clinical Notes Section Notes 10/09/2024 Type 1 diabetes mellitus with diabetic polyneuropathy (ICD-10 - E10.42) 10/09/2024 Tinea unguium (ICD-10 - B35.1) 10/09/2024 Other Plan Of Treatment Pending Test Test Name Order Date 95813-PFAZXRR NAIL, 6 OR MORE 10/09/2024 89135-JAMS SKIN LESIONS, OVER 4 10/09/20 24 Next Appt Details Follow Up: prn, Reason: Provider Name:Benjamin Landeros , 04/23/2025 01:30:00 PM, [address] [place] [address], [phone], Procedure Notes * Category Sub-Category Detail Notes [...] use of a nail nipper and/or dremel-type cutlery grinder, to a more viable healthy nail plate or bed tissue 6-10. Silver nitrate used for any petechial bleeding as necessary. Definitive antifungal treatment options have been reviewed and discussed with the patient. The patient chooses, no pharmaceutical tx - 08668 Keratoma Treatment Parring or Cutting o f Benign Hyperkeratotic Lesion(s) (-57) More than 4 Lesions - The Benign hyperkeratotic lesions, as described in exam, were pared, and/or cut utilizing a sterile 15 blade, tissue nippers, and/or dremel - 07790 Progress Notes * Miriam NOGUEIRA JDOB: (74 yo F)Acc No.[id number]:10/09/2024 Progress Note Patient:?ROLANDOOIDLIA Tammie yonathan Ward Provider:?Benjamin Lanedros DPM :1950???Age:74 Y???Sex:Female D ate:10/09/2024 Address:[facility] [address], [facility] Pcp:Buddy Morrow MD Subjective: * Chief Complaints: [...] ?Marital status: . 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 * Medications:?TakingPantopraz ole Sodium 40 MG Tablet [...] use of a nail nipper and/or dremel-type cutlery grinder, to a more viable healthy nail plate or bed tissue 6-10. Silver nitrate used for any petechial bleeding as necessary. Definitive antifungal treatment options have been reviewed and discussed with the patient. The patient chooses, no pharmaceutical tx - 94182.?Keratoma Treatment:?Parring or Cutting of Benign Hyperkeratotic Lesion(s)?(-57) More than 4 Lesions - The Benign hyperkeratotic lesions, as described in exam, were pared, and/or cut utilizing a sterile 15 blade, tissue nippers, and/or dremel - 70262.? * Procedure Codes:?72283 DEBRI DE NAIL, 6 OR MORE, Modifiers: XS 71569 TRIM SKIN LESIONS, OVER 4, Modifiers: XS * Follow Up:?prn * Images: * Sign off status: Completed true * Provider:?Benjamin Landeros DPM Date:?2023 Generated for Stephanie smith/Jareth/Ania on:?03/18/2025 12:24 PM EDT History and Physical [...]
--- OUTSIDE RECORDS SUMMARY | 2025-03-18 12:24 | XMS_ITS | Patient Health Record ---
[facility] Address [address] [place] [address] Care Team Providers Care Impersonator Character Name Role Phone Buddy Morrow MD Primary Care Provider Benjamin Skelton Unavailable [phone] Allergies Allergen (clinical drug ingredient) Drug/Non Drug [...] Problem Acquired hammer toe of right foot (2896246267284526 ) Other hammer toe(s) (acquired), right foot (M20.41) Active confirmed Response to treatment, Improvemen t Problem Acquired hammer toe of left foot (4271027183807507 ) Other hammer toe(s) (acquired), left foot (M20.42) Active confirmed Response to treatment, Improvemen t Problem Polyneuropathy due to diabetes mellitus type I (448918686) 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 confirmed Vital Signs Blood pressure diastolic 70 mm Hg 01/15/2025 Height 5ft4in in 01/15/2025 Blood pressure systolic 103 mm Hg 01/15/2025 Weight 200 lbs 01/15/2025 BMI 34.33 kg/m2 01/15/2025 Procedures Procedure Date Ordered Date Performed Result Body Sit e 54043-CUZMUCO NAIL, 6 OR MORE 03/27/2024 N/A 91891-IFQG SKIN LESIONS, OVER 4 03/27/2024 N/A 26781-FQTWXGR NAIL, 6 OR MORE 06/26/2024 N/A 48207-BQXB SKIN LESIONS, OVER 4 06/26/2024 N/A 26476-QKUDPJQ NAIL, 6 OR MORE 10/09/2024 N/A 24856-SEBK SKIN LESIONS, OVER 4 10/09/2024 N/A 27875-EGFZUQY NAIL, 6 OR MORE 01/15/2025 N/A 08890-TJDY SKIN LESIONS, OVER 4 01/15/2025 N/A Encounters Encounter Location Date Provider Diagnosis [address] [address] 03/27/2024 Benjamin Leti Type 1 diabetes mellitus with diabetic polyneuropathy E10.42 and Tinea unguium B35.[address] [address] 06/26/2024 Benjamin Leti Type 1 diabetes mellitus with diabetic polyneuropathy E10.42 ; Tinea unguium B35.1 ; Other hammer toe(s) (acquired), right foot M20.41 and Other hammer toe(s) (acquired), left foot M20.[address] [address] 10/09/2024 Benjamin Leti Type 1 diabetes mellitus with diabetic polyneuropathy E10.42 and Tinea unguium B35.[address] [address] 01/15/2025 Benjamin Leti Type 1 diabetes mellitus [...] 02/11/2015 Hemoglobin A1c 12/02/2015 Hemoglobin A1c 06/03/2017 48176-KUQVRJN NAIL, 6 OR MORE 10/09/2024 91625-SHPCOTJ NAIL, 6 OR MORE 01/15/2025 27138-LZHNJDG NAIL, 6 OR MORE 09/12/2020 71323-JXGTNNA NAIL, 6 OR MORE 12/12/2020 42907-MWUWUIJ NAIL, 6 OR MORE 03/13/2021 00947-NOXMXIV NAIL, 6 OR MORE 06/12/2021 74861-EANVKQZ NAIL, 6 OR MORE 09/18/2021 46004-YLSKCOO NAIL, 6 OR MORE 12/18/2021 46513-MSNOSFV NAIL, 6 OR MORE 03/23/2022 60900-YLAZSAM NAIL, 6 OR MORE 06/25/2022 96790-KONLDAH NAIL, 6 OR MORE 09/24/2022 89545-VAJJMKT NAIL, 6 OR MORE 12/24/2022 78807-LNXNGTZ NAIL, 6 OR MORE 03/25/2023 13585-ITLDXYL NAIL, 6 OR MORE 06/24/2023 12086-YLIWXFX NAIL, 6 OR MORE 09/27/2023 11422-DWLAUIF NAIL, 6 OR MORE 12/27/2023 68014-WAZWGGG NAIL, 6 OR MORE 03/27/2024 58558-WDMQRWX NAIL, 6 OR MORE 06/26/2024 56210-YDRKIOS NAIL, 6 OR MORE 08/22/2015 74068-DSDAHPR NAIL, 6 OR MORE 05/16/2015 54440-ECALLAV NAIL, 6 OR MORE 02/11/2015 90306-XTIVMOL NAIL, 6 OR MORE 11/02/2013 59561-OAWOVZK NAIL, 6 OR MORE 02/01/2014 97544-IBMEPMN NAIL, 6 OR MORE 05/10/2014 45083-NDEYWID NAIL, 6 OR MORE 08/13/2014 78109-LKOYPER NAIL, 6 OR MORE 11/12/2014 68748-MPEFSGA NAIL, 6 OR MORE 07/27/2011 92832-EWSHZYZ NAIL, 6 OR MORE 10/15/2011 70699-GPIUTCW NAIL, 6 OR MORE 01/14/2012 96297-DNOHKVO NAIL, 6 OR MORE 04/11/2012 85793-CRTFRGL NAIL, 6 OR MORE 07/28/2012 05216-WEVWGSU NAIL, 6 OR MORE 10/13/2012 12572-RAKPIXJ NAIL, 6 OR MORE 01/12/2013 17395-XFPXOYD NAIL, 6 OR MORE 04/13/2013 98633-CHFSQAD NAIL, 6 OR MORE 08/03/2013 01364-TLJHIQM NAIL, 6 OR MORE 12/02/2015 55732-UJFRUCI NAIL, 6 OR MORE 03/02/2016 05085-CPHAGQW NAIL, 6 OR MORE 06/11/2016 05389-SZAOYED NAIL, 6 OR MORE 09/10/2016 79117-LPAPHUL NAIL, 6 OR MORE 12/10/2016 49216-RRQDSVC NAIL, 6 OR MORE 03/04/2017 98631-JGJTJFB NAIL, 6 OR MORE 06/07/2017 49495-SJKRCDA NAIL, 6 OR MORE 09/06/2017 81577-VMWCKAP NAIL, 6 OR MORE 12/09/2017 64480-DRPAUWC NAIL, 6 OR MORE 03/10/2018 15766-VFTXTOS NAIL, 6 OR MORE 06/13/2018 86093-PTQCJKQ NAIL, 6 OR MORE 09/12/2018 34247-NETBIOK NAIL, 6 OR MORE 12/26/2018 57683-QEBMLDW NAIL, 6 OR MORE 03/27/2019 23170-LVBUYYH NAIL, 6 OR MORE 06/26/2019 96434-PDJRPNK NAIL, 6 OR MORE 09/25/2019 94210-NHYJTFL NAIL, 6 OR MORE 12/25/2019 38181-GFSDGRX NAIL, 6 OR MORE 06/13/2020 53040- Debride <25 sq cm 08/03/2013 64799-HMIN SKIN LESIONS, OVER 4 11/02/20 13 09895-GQPZ SKIN LESIONS, OVER 4 11/12/20 14 19541-NHTS SKIN LESIONS, OVER 4 08/13/20 14 72381-ZROY SKIN LESIONS, OVER 4 05/10/20 14 21976-LUUS SKIN LESIONS, OVER 4 02/02/20 14 39463-LLDI SKIN LESIONS, OVER 4 02/12/20 15 51114-QBIJ SKIN LESIONS, OVER 4 05/16/20 15 53238-GCBP SKIN LESIONS, OVER 4 08/22/20 15 45690-ZREB SKIN LESIONS, OVER 4 12/02/19 16 24496-SGTH SKIN LESIONS, OVER 4 06/13/20 20 12662-AFRB SKIN LESIONS, OVER 4 12/25/19 20 27399-XSGH SKIN LESIONS, OVER 4 09/25/20 19 20863-SKWE SKIN LESIONS, OVER 4 06/26/20 19 01685-ZNPF SKIN LESIONS, OVER 4 03/27/20 19 83960-FEGF SKIN LESIONS, OVER 4 12/26/19 19 87941-MENK SKIN LESIONS, OVER 4 09/12/20 18 99474-DLHC SKIN LESIONS, OVER 4 06/13/20 18 26725-CIVH SKIN LESIONS, OVER 4 03/10/20 18 91573-WMIO SKIN LESIONS, OVER 4 12/09/19 18 12476-WWWM SKIN LESIONS, OVER 4 09/06/20 17 13744-FORJ SKIN LESIONS, OVER 4 03/04/20 17 69016-VEPU SKIN LESIONS, OVER 4 06/07/20 17 78556-EYFN SKIN LESIONS, OVER 4 12/10/19 17 25142-YOJT SKIN LESIONS, OVER 4 09/10/20 16 80387-FRCX SKIN LESIONS, OVER 4 06/11/20 16 46452-DCWB SKIN LESIONS, OVER 4 03/02/20 16 79235-DFQY SKIN LESIONS, OVER 4 06/26/20 24 02605-TIKI SKIN LESIONS, OVER 4 03/27/20 24 88284-ASEL SKIN LESIONS, OVER 4 12/27/19 24 38294-TTCC SKIN LESIONS, OVER 4 09/27/20 23 43275-JGAM SKIN LESIONS, OVER 4 06/24/20 67738-SXUQ SKIN LESIONS, OVER 4 03/25/20 54475-OVHB SKIN LESIONS, OVER 4 12/24/19 23 27941-XJZB SKIN LESIONS, OVER 4 09/24/20 10942-MLHL SKIN LESIONS, OVER 4 06/25/20 93483-JBKL SKIN LESIONS, OVER 4 03/23/20 76621-ONEE SKIN LESIONS, OVER 4 12/18/19 30052-XLLK SKIN LESIONS, OVER 4 09/18/20 99472-FYEB SKIN LESIONS, OVER 4 06/12/20 12224-IUEC SKIN LESIONS, OVER 4 03/13/20 58440-WFYC SKIN LESIONS, OVER 4 12/12/19 21 61532-AACU SKIN LESIONS, OVER 4 09/12/20 93032-ULSS SKIN LESIONS, OVER 4 01/15/20 25 25059-YTMH SKIN LESIONS, OVER 4 10/09/20 24 64654-PHNX SKIN LESIONS, 2 TO 4 07/27/20 11 98131-JTNY SKIN LESIONS, 2 TO 4 04/13/20 13 33288-BYFU SKIN LESIONS, 2 TO 4 01/12/20 13 11496-EKVM SKIN LESIONS, 2 TO 4 10/13/20 12 50659-TVPV SKIN LESIONS, 2 TO 4 07/28/20 12 23172-OFFC SKIN LESIONS, 2 TO 4 04/11/20 12 66238-KFPX SKIN LESIONS, 2 TO 4 01/14/20 12 66068-VOGB SKIN LESIONS, 2 TO 4 10/15/20 11 HEMOGLOBIN A1C (GLYCOHEMOGLOBIN) 020 Next Appt Details Provider Name:Benjamin Andersen Leti , 04/23/2025 01:30:00 PM, [address] [place] [address], [place], [address], Insurance Providers Payer Name Payer Address Payer Phone Subscriber Number Group Number Insured Name Patient Relationship to Insured Coverage Start Date Coverage End Date [employer] Medicare Adv-90229 [address] [address] [place] [address] [id number] Miriam Henry Self - patient is the insured [facility] Claims [facility] Office of Community Care [address] [address] [place] [address] [id number] Miriam Henry Self - patient is the [...] [facility], es[facility] surgery 05/17/24 [facility]-Hiatal Hernia flare up 02/27/2021 [facility]- Hiatal hernia flare up 05/21/19
[2025-03-18 12:38] LABS: MANUAL DIFF FLAG NO
[2025-03-18 12:50] LABS: Basophils Absolute Auto 0.1 X10*3/uL (0.0-0.2); Basophils Percent Auto 0.8 % (0-2); Eosinophils Absolute Auto 0.3 X10*3/uL (0.0-0.4); Eosinophils Percent Auto 4.3 % (0-4); Hematocrit 40.5 % (37.0-47.0); Hemoglobin 13.1 g/dl (12.0-16.0); Imm Gran Abs Auto 0.03 X10*3/uL (0.00-0.03); Imm Gran Pct Auto 0.4 % (0.0-0.4); Lymphocytes Absolute Auto 1.9 X10*3/uL (1.2-4.9); Lymphocytes Percent Auto 25.9 % (20-40); Mean Corpuscular HGB Conc 32.3 g/dl (31.0-35.0); Mean Corpuscular Volume 89.6 fL (80.0-98.0); Mean Platelet Volume 10.2 fL (9.4-12.3); Monocytes Absolute Auto 0.6 X10*3/uL (0.1-1.2); Monocytes Percent Auto 7.7 % (2-11); Neutrophils Absolute Auto 4.3 x10*3/uL (2.0-8.3); Neutrophils Percent Auto 60.9 % (45-73); Platelet Count 258 X10*3/uL (160-400); Red Blood Count 4.52 X10*6/uL (4.20-5.50); Red Cell Distribution Width 13.1 % (11.0-16.0); White Blood Count 7.1 X10*3/uL (4.8-10.8)
[2025-03-18 12:59] LABS: Estimated Average Glucose 200 mg/dL; Hemoglobin A1C 240.6744 umol/L; Hemoglobin A1c % 8.6 % (<6.0); Total Hemoglobin (HGBA1C) 3411.4105 umol/L
[2025-03-18 13:27] LABS: Alanine Aminotransferase 29 U/L (0-31); Albumin Level 3.8 g/dL (3.5-5.0); Alkaline Phosphatase 62 U/L (39-117); Anion Gap 15 (12-20); Aspartate Amino Transferase 33 U/L (5-31); Bilirubin Total 0.6 mg/dL (0.0-1.0); Blood Urea Nitrogen 9 mg/dL (9-16); Calcium 9.1 mg/dL (8.4-10.2); Carbon Dioxide 29 mmol/L (22-29); Chloride 102 mmol/L (96-108); Cholesterol 143 mg/dL (<200); Estimated Glomerular Filt Rate 58; Glucose Fasting 176 mg/dL (60-99); HDL Cholesterol 43 mg/dL (>40); LDL Cholesterol Calculated 51 mg/dL (<100); Potassium 4.4 mmol/L (3.3-5.1); Sodium 142 mmol/L (135-145); Total Protein 6.9 g/dL (6.5-8.0); Triglycerides 249 mg/dL (<150)
[2025-03-18 13:44] LABS: Thyroid Stimulating Hormone 5.11 uIU/mL (0.32-4.0)
[2025-03-18 15:06] LABS: Creatinine Urine 203.25 mg/dL; Microalbum/Creatinine Ratio Ur 22.6 ug/mg cr (<30)
== END 2025-03-18 12:22 | disposition home or self-care (01) ==
LOC: HO.LAB 12:21
PROVIDERS: Urology; Visit Provider Internal Medicine
DX: C54.1 Malignant neoplasm of endometrium (principal); D12.6 Benign neoplasm of colon, unspecified; R94.6 Abnormal results of thyroid function studies; I10 Essential (primary) hypertension; I25.10 Atherosclerotic heart disease of native coronary artery without angina pectoris; E03.9 Hypothyroidism, unspecified; E11.42 Type 2 diabetes mellitus with diabetic polyneuropathy; E11.65 Type 2 diabetes mellitus with hyperglycemia; E66.9 Obesity, unspecified; E11.8 Type 2 diabetes mellitus with unspecified complications; K21.9 Gastro-esophageal reflux disease without esophagitis; E11.69 Type 2 diabetes mellitus with other specified complication; E66.01 Morbid (severe) obesity due to excess calories; Z79.84 Long term (current) use of oral hypoglycemic drugs; Z79.899 Other long term (current) drug therapy; Z13.0 Encounter for screening for diseases of the blood and blood-forming organs and certain disorders involving the immune mechanism; Z13.9 Encounter for screening, unspecified; Z13.220 Encounter for screening for lipoid disorders; Z13.29 Encounter for screening for other suspected endocrine disorder; Z90.710 Acquired absence of both cervix and uterus
CPT/HCPCS: 36415; 80053; 80061; 82043; 82570; 83036; 84443; 85025; 99212

== ENCOUNTER 2025-03-18 12:48 | Outpatient (AMB) | payer MEDICARE, OTHER, SELFPAY ==
--- NOTE | 2025-03-18 13:03 | MHC.PC.OV ---
Vital Signs 03/18/25 13:04 Height 5 ft 4 in Weight 198 lb 4 oz BMI 34.0 BP 132/68 Blood Pressure Location Lt brachial Position Sitting Pulse 63 Pulse Source Pulse Oximeter Temp 97.3 F Temp Source Temporal Artery Scan Pulse Oximetry (%) 98 Oxygen Delivery Method Room Air Intake Visit Reasons: NII from [facility]/ 3 month f/u - see comments Intake Note: Patient is here today for NII from Dr Morrow and 3m f/u for DM. Digital Computer Operator Required: No Business Analytics Director: Not Required per policy Accompanied by: Self / Same As Patient Allergies hydrocodone [From VICODIN] Allergy (Unknown, Verified 03/18/25 13:15) HEADACHE oxycodone [OXYCODONE] Allergy (Unknown, Verified 03/18/25 13:15) HIVES procaine [From NOVOCAIN] Allergy (Unknown, Verified 03/18/25 13:15) FAINTED Medication List - Last Reconciled 03/18/25 by CLARE Lovett amitriptyline 25 mg PO DAILY aspirin 81 mg PO DAILY bisacodyl (Dulcolax (bisacodyl)) 10 mg (2 x 5 mg) PO BEDTIME cholecalciferol (vitamin D3) 25 mcg PO DAILY esomeprazole magnesium (Nexium) 40 mg PO DAILY exenatide microspheres ER 2 mg (0.85 mL) subcut QWEEK 90 days furosemide 20 mg PO DAILY PRN gabapentin 600 mg PO DAILY levothyroxine 112 mcg PO DAILY losartan 25 mg PO DAILY magnesium citrate (Citrate of Magnesia oral) 150 mL PO ONCE metformin 1,000 mg PO DAILY metoprolol tartrate 12.5 mg (1/2 x 25 mg) PO BID mirabegron ER (Myrbetriq) 25 mg PO DAILY multivitamin 1 tab PO DAILY niacin 50 mg PO BEDTIME polyethylene glycol 3350 (Miralax) 238 grams PO ONCE simvastatin 40 mg PO BEDTIME 90 days Tobacco use date assessed: 03/18/25 Fall risk assessment: 1 Fall in past year (02/07/25) Last assessed Fall Risk: 03/18/25 Dental Screening Dental Screen Date: 12/18/24 HPI NII from [facility]/ 3 month f/u - see comments HPI Details The patient is a 74-year-old female presenting to transition care from Dr. Morrow, who retired. The patient is follow-up on her post-surgical status, diabetes management, and general health maintenance. She has a significant history of Type 2 Diabetes Mellitus, controlled with Metformin once daily, although her latest A1c is elevated at 8.6. She recently underwent a hysterectomy due to cancer, reporting recovery without complications. She experiences fluctuating blood sugar levels post-surgery. Longstanding hypertension remains stable without recent medication changes. The patient has undergone two previous hiatal hernia repairs, with imaging now indicating recurrence. Her GERD, managed with Exomeprazole, shows improvement; however, symptoms occasionally persist with dietary triggers. She currently maintains her diabetes-related neuropathy with Gabapentin and experiences chronic knee pain, which was secondary to a halted knee surgery plan due to prioritizing hernia repair needs. Chronic constipation post-colonoscopy has shown improvement with morning medication benefit. Her insomnia and GERD persist as prominent concerns impacting daily wellness. A recent triglyceride level tested at 249 reflects an increase, necessitating dietary advisement. The patient reports no history of smoking or alcohol use, while acknowledging decreased energy levels and sporadic sleep patterns. [facility] Medical History (Updated 03/18/25 @ 23:09 by CLARE Lovett) Tubular adenoma of colon Incontinence Hx of esophageal ulcer (~04/2024) Dysphagia Hypoglycemia unawareness associated with type 2 diabetes mellitus Hyperlipidemia associated with type 2 diabetes mellitus Obesity Post-menopausal Screening for breast cancer Dizziness Pre-op exam Hiatal hernia (~04/2024) IDDM (insulin dependent diabetes mellitus) Pre-op exam Diabetic polyneuropathy associated with type 2 diabetes mellitus Obesity (BMI 30-39.9) Hypertension Hypothyroidism 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 snf (current) use of insulin Diabetes type 2, uncontrolled Surgical History History of hysterectomy History of abdominal paracentesis History of esophagogastroduodenoscopy (EGD) History of colonoscopy History of repair of hiatal hernia History of cardiac catheterization Hx of hammer toe correction Hx of shoulder surgery Hx of tonsillectomy Hx laparoscopic cholecystectomy Hx of appendectomy Family History Brother Diabetes Father Lung cancer Mother HTN (hypertension) Social History Household Members: Family Housing: House Are you a primary primary care nurse practitioner to a significant other at home: No Do you presently have visiting nurse or other home services: No Alcohol intake: current Alcohol intake frequency: holidays/special occasions only Patient Tobacco Use Status: Former Tobacco user Tobacco use type: Cigarette Years Smoked: 20 e-Cigarette/Vaping Use: Never Used Second Hand Smoke Exposure: Yes service: No Current occupational status: retired Cognitive needs: No Hearing needs: No Vision needs: Yes (Glasses) Questionnaire Thrive Questionnaire Date Thrive assessed: 12/18/24 AUDIT C Alcohol Use Questionnaire (AUDIT-C) 3. How often do you have six or more drinks on one occasion?: Never Total Score: 0 GHAZAL-7 AMB Questionnaire GHAZAL-7 Date GHAZAL - 7 assessed: 12/18/24 Source: Developed by Drs. Hugh Sanon, Kajal Fuentes, Sam Padgett and colleagues, with an educational melissa from [employer]. Review of Systems Const Denies headache(s) Eyes Denies loss of vision ENT Denies vertigo, Denies dizziness, Denies headache(s) and Denies sore throat Card Denies chest pain, Denies leg edema, Denies lightheadedness and Reports other (Leg swelling only in his summer months) Resp Denies cough, Denies hemoptysis and Denies wheezing GI Denies abdominal pain, Denies melena, Reports constipation (Improved with meds), Reports heartburn (With Certain foods), Denies diarrhea, Denies vomiting and Reports other (History of hiatal hernia) Denies urinary frequency, Denies dysuria and Denies urinary urgency Musc Reports arthralgias (Both knees), Denies joint swelling, Denies numbness and Denies tingling Neuro Denies Abnormal speech present, Denies behavioral changes, Denies vertigo, Denies dizziness, Denies headache(s), Denies loss of vision, Denies memory loss, Denies numbness, Denies tingling and Reports other (Neuropathy due to diabetes) Psych Denies anxiety, Denies behavioral changes, Denies depression, Denies memory loss, Denies panic attacks and Reports other (Insomnia) Mark/Lymph Denies easy bleeding and Denies easy bruising Aller/Immun Denies wheezing Physical exam (Primary Care) Vital Signs: Last Vital Signs Temp 97.3 F 03/18/25 13:04 Pulse 63 03/18/25 13:04 BP 132/68 03/18/25 13:04 Pulse Ox 98 03/18/25 13:04 Oxygen Delivery Method Room Air 03/18/25 13:04 BMI result Body Mass Index 34.0 Tobacco/Smoking Status: Tobacco use Status Tobacco use date assessed 03/18/25 03/18/25 13:04 Patient Tobacco Use Status Former Tobacco user 03/18/25 13:04 Tobacco use type Cigarette 03/18/25 13:04 e-Cigarette/Vaping Use Never Used 03/18/25 13:04 Thrive Assessment: Date of Thrive Assessment Date Thrive assessed 12/18/24 03/18/25 13:04 Const General: healthy appearing, no acute distress, alert and awake Nutritional Appearance: well nourished Orientation/consciousness: oriented to person, oriented to place and oriented to time HENMT Ears: external ears normal General nose exam: Normal external nose present Eyes Conjunctivae: conjunctivae normal Sclerae: sclerae normal Pupils: Equal, round and reactive pupils present Neck Neck: Yes no lymphadenopathy and Yes no JVD Thyroid: Thyroid normal Carotids: no bruits Resp Effort & Inspection: normal respiratory effort and not tachypneic Auscultation: no crackles, no rales, no rhonchi and no wheezes Cardio Rate: regular rate Rhythm: regular rhythm Heart sounds: no murmurs and normal S1 and S2 GI Palpation (GI): Soft to palpation, nontender, no hepatomegaly and no splenomegaly Auscultation: normal bowel sounds Skin General skin exam: no rashes or lesions noted and dry skin Neuro General: oriented to person, oriented to place and oriented to time Cranial nerves: Yes Equal, round and reactive pupils present Speech: No Abnormal speech present Gait exam (Neuro): Normal gait present Motor exam (neuro): no tremor noted Extrem Right upper extremity: full ROM Left upper extremity: full ROM Right lower extremity: full ROM and knee Details: no tenderness; no edema Left lower extremity: full ROM and knee Details: no tenderness; no edema Psych Mental Status: mental status grossly normal Speech and movement: Normal speech and movement present Affect: normal affect Attitude: cooperative Thought process: Normal thought process present Coding Level of Care Code Est Pt Level 4 (33103) Diagnoses Endometrial cancer C54.1 Tubular adenoma of colon D12.6 Elevated TSH R79.89 Diabetes mellitus with coincident hypertension E11.9; I10 Atherosclerotic cardiovascular disease I25.10 Essential hypertension I10 Hypertension type: essential hypertension Acquired hypothyroidism E03.9 Hypothyroidism type: acquired Diabetic polyneuropathy associated with type 2 diabetes mellitus E11.42 Uncontrolled type 2 diabetes mellitus with hyperglycemia E11.65 Glycemic state: with hyperglycemia Obesity (BMI 30-39.9) E66.9 Type 2 diabetes mellitus with unspecified complications E11.8 Time Spent (min) 35 Assessment & Plan Assessment & Plan (1) Endometrial cancer: Code(s): C54.1 - Malignant neoplasm of endometrium Category: Medical (2) Tubular adenoma of colon: Code(s): D12.6 - Benign neoplasm of colon, unspecified Category: Medical (3) Elevated TSH: Code(s): R79.89 - Other specified abnormal findings of blood chemistry Category: Medical (4) Diabetes mellitus with coincident hypertension: Code(s): E11.9 - Type 2 diabetes mellitus without complications; I10 - Essential (primary) hypertension Category: Medical (5) Atherosclerotic cardiovascular disease: Code(s): I25.10 - Atherosclerotic heart disease of [place] coronary artery without angina pectoris Category: Medical (6) Hypertension: Code(s): I10 - Essential (primary) hypertension Category: Medical Qualifiers: Hypertension type: essential hypertension Qualified Code(s): I10 - Essential (primary) hypertension (7) Hypothyroidism: Code(s): E03.9 - Hypothyroidism, unspecified Category: Medical Qualifiers: Hypothyroidism type: acquired Qualified Code(s): E03.9 - Hypothyroidism, unspecified (8) Diabetic polyneuropathy associated with type 2 diabetes mellitus: Code(s): E11.42 - Type 2 diabetes mellitus with diabetic polyneuropathy Category: Medical (9) Diabetes type 2, uncontrolled: Code(s): E11.65 - Type 2 diabetes mellitus with hyperglycemia Category: Medical Qualifiers: Glycemic state: with hyperglycemia Qualified Code(s): E11.65 - Type 2 diabetes mellitus with hyperglycemia (10) Obesity (BMI 30-39.9): Code(s): E66.9 - Obesity, unspecified Category: Medical (11) Type 2 diabetes mellitus with unspecified complications: Code(s): E11.8 - Type 2 diabetes mellitus with unspecified complications Category: Medical Plan The patient will enhance diabetes control by adopting Metformin dosing adjustments from 1000mg once to BID aimed at reaching and maintaining target glycemic levels, limiting complications. Preventative interventions and medication counseling will manage her GERD and lifestyle-induced exacerbations. The patient was advised on cholesterol stabilization through diet to curb her elevated triglycerides. Close monitoring of her condition, notably the hiatal hernia and knee pain, remains crucial, prioritizing anti-inflammatory measures and potential interventions judged by symptom severity and frequency. We established follow-up for diabetes progression and response to the modified regimen in three months. The patient reports that her knee pain is not excruciating because she could walk long distance before feeling any soreness in her knees. The patient also does not want to depend on medication to fall a sleep and rather falling asleep naturally. Reinforced sleep hygiene. Continue cholecalciferol 25 mcg daily. Gabapentin 600 mg daily for nerve pain. Levothyroxine 112 mcg daily, TSH elevated, we repeat TSH along with T4 and advise after resulted. Furosemide 20 mg p.r.n.-reports leg swelling only in the summer months. Amitriptyline 25 mg daily ongoing for headaches. Metoprolol tartrate 12.5 mg b.i.d., losartan 25 mg daily ongoing for blood pressure management. Reinforced low-sodium diet. History of CAD continue aspirin 81 mg and simvastatin 40 mg at bedtime. Patient was informed and verbally consented to the use of an ambient scribe for clinic note documentation during this visit. Orders: Orders Lipid Panel 3 Months E03.9 - Hypothyroidism, unspecified, E11.8 - Type 2 diabetes mellitus with unspecified complications, E11.9 - Type 2 diabetes mellitus without complications, E66.9 - Obesity, unspecified, E78.5 - Hyperlipidemia, unspecified, I10 - Essential (primary) hypertension, I44.0 - Atrioventricular block, first degree, K44.9 - Diaphragmatic hernia without obstruction or gangrene, M18.12 - Unilateral primary osteoarthritis of first carpometacarpal joint, left hand, M25.473 - Effusion, unspecified ankle TSH reflex Free T4 3 Months E03.9 - Hypothyroidism, unspecified, E11.8 - Type 2 diabetes mellitus with unspecified complications, E11.9 - Type 2 diabetes mellitus without complications, E66.9 - Obesity, unspecified, E78.5 - Hyperlipidemia, unspecified, I10 - Essential (primary) hypertension, I44.0 - Atrioventricular block, first degree, K44.9 - Diaphragmatic hernia without obstruction or gangrene, M18.12 - Unilateral primary osteoarthritis of first carpometacarpal joint, left hand, M25.473 - Effusion, unspecified ankle UA CC w/rflx Micro + Cult 3 Months E03.9 - Hypothyroidism, unspecified, E11.8 - Type 2 diabetes mellitus with unspecified complications, E11.9 - Type 2 diabetes mellitus without complications, E66.9 - Obesity, unspecified, E78.5 - Hyperlipidemia, unspecified, I10 - Essential (primary) hypertension, I44.0 - Atrioventricular block, first degree, K44.9 - Diaphragmatic hernia without obstruction or gangrene, M18.12 - Unilateral primary osteoarthritis of first carpometacarpal joint, left hand, M25.473 - Effusion, unspecified ankle Glucose Fasting 3 Months E03.9 - Hypothyroidism, unspecified, E11.8 - Type 2 diabetes mellitus with unspecified complications, E11.9 - Type 2 diabetes mellitus without complications, E66.9 - Obesity, unspecified, E78.5 - Hyperlipidemia, unspecified, I10 - Essential (primary) hypertension, I44.0 - Atrioventricular block, first degree, K44.9 - Diaphragmatic hernia without obstruction or gangrene, M18.12 - Unilateral primary osteoarthritis of first carpometacarpal joint, left hand, M25.473 - Effusion, unspecified ankle TSH reflex Free T4 Today E03.9 - Hypothyroidism, unspecified, R79.89 - Other specified abnormal findings of blood chemistry Complete Blood Count Auto Diff 3 Months E03.9 - Hypothyroidism, unspecified, E11.8 - Type 2 diabetes mellitus with unspecified complications, E11.9 - Type 2 diabetes mellitus without complications, E66.9 - Obesity, unspecified, E78.5 - Hyperlipidemia, unspecified, I10 - Essential (primary) hypertension, I44.0 - Atrioventricular block, first degree, K44.9 - Diaphragmatic hernia without obstruction or gangrene, M18.12 - Unilateral primary osteoarthritis of first carpometacarpal joint, left hand, M25.473 - Effusion, unspecified ankle Comprehensive [place]. Panel Fast 3 Months E03.9 - Hypothyroidism, unspecified, E11.8 - Type 2 diabetes mellitus with unspecified complications, E11.9 - Type 2 diabetes mellitus without complications, E66.9 - Obesity, unspecified, E78.5 - Hyperlipidemia, unspecified, I10 - Essential (primary) hypertension, I44.0 - Atrioventricular block, first degree, K44.9 - Diaphragmatic hernia without obstruction or gangrene, M18.12 - Unilateral primary osteoarthritis of first carpometacarpal joint, left hand, M25.473 - Effusion, unspecified ankle Vitamin D 25-OH Total 3 Months E03.9 - Hypothyroidism, unspecified, E11.8 - Type 2 diabetes mellitus with unspecified complications, E11.9 - Type 2 diabetes mellitus without complications, E66.9 - Obesity, unspecified, E78.5 - Hyperlipidemia, unspecified, I10 - Essential (primary) hypertension, I44.0 - Atrioventricular block, first degree, K44.9 - Diaphragmatic hernia without obstruction or gangrene, M18.12 - Unilateral primary osteoarthritis of first carpometacarpal joint, left hand, M25.473 - Effusion, unspecified ankle Hemoglobin A1c 3 Months E03.9 - Hypothyroidism, unspecified, E11.8 - Type 2 diabetes mellitus with unspecified complications, E11.9 - Type 2 diabetes mellitus without complications, E66.9 - Obesity, unspecified, E78.5 - Hyperlipidemia, unspecified, I10 - Essential (primary) hypertension, I44.0 - Atrioventricular block, first degree, K44.9 - Diaphragmatic hernia without obstruction or gangrene, M18.12 - Unilateral primary osteoarthritis of first carpometacarpal joint, left hand, M25.473 - Effusion, unspecified ankle Free T4 (Free Thyroxine) 3 Months E03.9 - Hypothyroidism, unspecified Free T4 (Free Thyroxine) Today E03.9 - Hypothyroidism, unspecified, R79.89 - Other specified abnormal findings of blood chemistry Medications: Changed From metformin 1,000 mg PO DAILY 90 tabs 8RF To metformin 1,000 mg PO BID 120 tabs 3RF Patient Instructions: - Start Metformin 1000 mg twice daily, around 9 am and at bedtime. - Continue using Exomeprazole for GERD management. - Monitor and reduce intake of foods contributing to triglyceride elevation. - Maintain diet elevation strategies post-dining to alleviate reflux symptoms. - Aim for a consistent, adequate sleep routine, mindful of awake periods. - Monitor for any significant symptom changes and report promptly. - Schedule follow-up lab work and visits to review current health status. - Adhere to current prescribed medications and track any noted changes.
[2025-03-18 13:04] VITALS: BP 132/68; PULSE 63; TEMP 36.3; O2SAT 98; BMI 34.0
== END 2025-03-18 13:38 | disposition home or self-care (01) ==
LOC: HO.HMCH 12:49
PROVIDERS: PCP Internal Medicine
DX: C54.1 Malignant neoplasm of endometrium (principal); D12.6 Benign neoplasm of colon, unspecified; R79.89 Other specified abnormal findings of blood chemistry; E11.42 Type 2 diabetes mellitus with diabetic polyneuropathy; E11.65 Type 2 diabetes mellitus with hyperglycemia; I10 Essential (primary) hypertension; I25.10 Atherosclerotic heart disease of native coronary artery without angina pectoris; E03.9 Hypothyroidism, unspecified; E66.9 Obesity, unspecified

== ENCOUNTER 2025-03-19 12:40 | Outpatient (REF) | payer MEDICARE, OTHER, SELFPAY ==
[2025-03-19 14:05] LABS: Free T4 (Free Thyroxine) 1.13 ng/dL (0.71-1.85); TSH reflex Free T4 4.78 uIU/mL (0.32-4.0)
--- OUTSIDE RECORDS SUMMARY | 2025-03-19 15:03 | XMS_ITS | Patient Health Record ---
Author Organization [facility] Address [address] [facility] [place] [address] Care Team Providers Care Aquatics Manager Name Role Phone Buddy Morrow MD Primary Care Provider Benjamin Skelton Unavailable [phone] Allergies Allergen (clinical drug ingredient) Drug/Non Drug [...] Problem Acquired hammer toe of right foot (8911227542734589 ) Other hammer toe(s) (acquired), right foot (M20.41) Active confirmed Response to treatment, Improvemen t Problem Acquired hammer toe of left foot ([id number] ) Other hammer toe(s) (acquired), left foot (M20.42) Active confirmed Response to treatment, Improvemen t Problem Polyneuropathy due to diabetes mellitus type I (453837737) 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 confirmed Vital Signs Blood pressure diastolic 70 mm Hg 01/15/2025 Height 5ft4in in 01/15/2025 Blood pressure systolic 103 mm Hg 01/15/2025 Weight 200 lbs 01/15/2025 BMI 34.33 kg/m2 01/15/2025 Procedures Procedure Date Ordered Date Performed Result Body Sit e 39309-RKZCDVV NAIL, 6 OR MORE 03/27/2024 N/A 64161-URXD SKIN LESIONS, OVER 4 03/27/2024 N/A 91993-FHOIGTT NAIL, 6 OR MORE 06/26/2024 N/A 25467-TINB SKIN LESIONS, OVER 4 06/26/2024 N/A 30570-WYWIZLM NAIL, 6 OR MORE 10/09/2024 N/A 47576-ONDV SKIN LESIONS, OVER 4 10/09/2024 N/A 23393-VPFILTK NAIL, 6 OR MORE 01/15/2025 N/A 81621-ZSJR SKIN LESIONS, OVER 4 01/15/2025 N/A Encounters Encounter Location Date Provider Diagnosis [address] [address] 03/27/2024 Benjamin Leti Type 1 diabetes mellitus with diabetic polyneuropathy E10.42 and Tinea unguium B35.[address] [address] 06/26/2024 Benjamin Leti Type 1 diabetes mellitus with diabetic polyneuropathy E10.42 ; Tinea unguium B35.1 ; Other hammer toe(s) (acquired), right foot M20.41 and Other hammer toe(s) (acquired), left foot M20.[address] [address] 10/09/2024 Benjamin Leti Type 1 diabetes mellitus with diabetic polyneuropathy E10.42 and Tinea unguium B35.[address] [address] 01/15/2025 Benjamin Leti Type 1 diabetes mellitus [...] 02/11/2015 Hemoglobin A1c 12/02/2015 Hemoglobin A1c 06/03/2017 59562-EIJVFAI NAIL, 6 OR MORE 10/09/2024 16383-PYOOOWF NAIL, 6 OR MORE 01/15/2025 48198-TSMKAGI NAIL, 6 OR MORE 09/12/2020 44214-FHLTOQL NAIL, 6 OR MORE 12/12/2020 99963-WPLBOQJ NAIL, 6 OR MORE 03/13/2021 02644-NDZKWNV NAIL, 6 OR MORE 06/12/2021 27710-NSDLACG NAIL, 6 OR MORE 09/18/2021 40118-EIDSPJF NAIL, 6 OR MORE 12/18/2021 14509-LPDKSDX NAIL, 6 OR MORE 03/23/2022 46209-LKDZKCI NAIL, 6 OR MORE 06/25/2022 20299-IPNWLQU NAIL, 6 OR MORE 09/24/2022 25571-XQLPQXO NAIL, 6 OR MORE 12/24/2022 65863-NKEJRZN NAIL, 6 OR MORE 03/25/2023 15824-WEXNYMV NAIL, 6 OR MORE 06/24/2023 29066-NMCHOSX NAIL, 6 OR MORE 09/27/2023 62043-DFEFOVC NAIL, 6 OR MORE 12/27/2023 44934-KIRXEHC NAIL, 6 OR MORE 03/27/2024 75723-NPYTYZH NAIL, 6 OR MORE 06/26/2024 39484-UYTZHFM NAIL, 6 OR MORE 08/22/2015 36606-CTDXYVU NAIL, 6 OR MORE 05/16/2015 33958-QRNDLSE NAIL, 6 OR MORE 02/11/2015 10149-NTKYIAT NAIL, 6 OR MORE 11/02/2013 33397-ILUFVMI NAIL, 6 OR MORE 02/01/2014 72476-NEJQUDT NAIL, 6 OR MORE 05/10/2014 96562-IMPNLML NAIL, 6 OR MORE 08/13/2014 09051-IYJEOBS NAIL, 6 OR MORE 11/12/2014 67683-HVKBGWJ NAIL, 6 OR MORE 07/27/2011 55170-SFCAVBE NAIL, 6 OR MORE 10/15/2011 99262-YFYBYPU NAIL, 6 OR MORE 01/14/2012 96650-EZFBGJX NAIL, 6 OR MORE 04/11/2012 16914-FJDYPCK NAIL, 6 OR MORE 07/28/2012 53881-KQLFERW NAIL, 6 OR MORE 10/13/2012 53393-HYZFARO NAIL, 6 OR MORE 01/12/2013 16315-XEUPAPM NAIL, 6 OR MORE 04/13/2013 65054-RMBRETF NAIL, 6 OR MORE 08/03/2013 96384-UOWXLJA NAIL, 6 OR MORE 12/02/2015 96680-MMOUWVZ NAIL, 6 OR MORE 03/02/2016 31957-DLMZGSG NAIL, 6 OR MORE 06/11/2016 21635-NPWNMCV NAIL, 6 OR MORE 09/10/2016 35595-PZMOXLG NAIL, 6 OR MORE 12/10/2016 08179-EGZNJYL NAIL, 6 OR MORE 03/04/2017 71214-DUHLCRF NAIL, 6 OR MORE 06/07/2017 17788-QUSORMV NAIL, 6 OR MORE 09/06/2017 28546-ZXPOHZI NAIL, 6 OR MORE 12/09/2017 92822-QFBOZPN NAIL, 6 OR MORE 03/10/2018 90254-XWLMNFQ NAIL, 6 OR MORE 06/13/2018 02544-OULMYKA NAIL, 6 OR MORE 09/12/2018 18447-LRPKGYG NAIL, 6 OR MORE 12/26/2018 15404-UGIZEPT NAIL, 6 OR MORE 03/27/2019 13953-PRAWMTJ NAIL, 6 OR MORE 06/26/2019 04088-IQIHJWN NAIL, 6 OR MORE 09/25/2019 59105-LPLMUZQ NAIL, 6 OR MORE 12/25/2019 70097-LNFWVRD NAIL, 6 OR MORE 06/13/2020 34998- Debride <25 sq cm 08/03/2013 38911-CLAW SKIN LESIONS, OVER 4 11/02/20 13 20334-VTZF SKIN LESIONS, OVER 4 11/12/20 14 96104-SSLF SKIN LESIONS, OVER 4 08/13/20 14 63876-FSWD SKIN LESIONS, OVER 4 05/10/20 14 92462-LNFI SKIN LESIONS, OVER 4 02/02/20 14 54497-QYGV SKIN LESIONS, OVER 4 02/12/20 15 65807-MMNA SKIN LESIONS, OVER 4 05/16/20 15 07880-DIJH SKIN LESIONS, OVER 4 08/22/20 15 45417-ZLYJ SKIN LESIONS, OVER 4 12/02/19 16 48600-MSUY SKIN LESIONS, OVER 4 06/13/20 20 20656-NNQP SKIN LESIONS, OVER 4 12/25/19 20 52496-VAQX SKIN LESIONS, OVER 4 09/25/20 19 25738-ZIFF SKIN LESIONS, OVER 4 06/26/20 19 61412-RTCS SKIN LESIONS, OVER 4 03/27/20 19 69106-YIYH SKIN LESIONS, OVER 4 12/26/19 19 36121-KBDE SKIN LESIONS, OVER 4 09/12/20 18 36046-HMCQ SKIN LESIONS, OVER 4 06/13/20 18 77949-YYBM SKIN LESIONS, OVER 4 03/10/20 18 33383-YMCI SKIN LESIONS, OVER 4 12/09/19 18 90073-YIEQ SKIN LESIONS, OVER 4 09/06/20 17 59755-UDDK SKIN LESIONS, OVER 4 03/04/20 17 04504-USQJ SKIN LESIONS, OVER 4 06/07/20 17 63299-PUSL SKIN LESIONS, OVER 4 12/10/19 17 94357-ZCQC SKIN LESIONS, OVER 4 09/10/20 16 20746-BUQQ SKIN LESIONS, OVER 4 06/11/20 16 81358-PLXN SKIN LESIONS, OVER 4 03/02/20 16 79454-FRUG SKIN LESIONS, OVER 4 06/26/20 24 69436-UPTV SKIN LESIONS, OVER 4 03/27/20 24 45142-DYHK SKIN LESIONS, OVER 4 12/27/19 24 58005-UHJB SKIN LESIONS, OVER 4 09/27/20 23 75453-WCFX SKIN LESIONS, OVER 4 06/24/20 14361-AWHK SKIN LESIONS, OVER 4 03/25/20 45061-PLHM SKIN LESIONS, OVER 4 12/24/19 23 26098-CJEX SKIN LESIONS, OVER 4 09/24/20 58264-HPVO SKIN LESIONS, OVER 4 06/25/20 42364-BFYO SKIN LESIONS, OVER 4 03/23/20 91598-QVEB SKIN LESIONS, OVER 4 12/18/19 44872-VUND SKIN LESIONS, OVER 4 09/18/20 34470-QLDC SKIN LESIONS, OVER 4 06/12/20 73020-NJQY SKIN LESIONS, OVER 4 03/13/20 99213-RPVE SKIN LESIONS, OVER 4 12/12/19 21 79219-XGAS SKIN LESIONS, OVER 4 09/12/20 71156-NEBI SKIN LESIONS, OVER 4 01/15/20 25 83870-OHZB SKIN LESIONS, OVER 4 10/09/20 24 04793-DGNV SKIN LESIONS, 2 TO 4 07/27/20 11 62477-TMDI SKIN LESIONS, 2 TO 4 04/13/20 13 17928-HFXD SKIN LESIONS, 2 TO 4 01/12/20 13 99746-GOVN SKIN LESIONS, 2 TO 4 10/13/20 12 03901-DRNC SKIN LESIONS, 2 TO 4 07/28/20 12 96208-GOOT SKIN LESIONS, 2 TO 4 04/11/20 12 39899-ISKR SKIN LESIONS, 2 TO 4 01/14/20 12 04494-GRCS SKIN LESIONS, 2 TO 4 10/15/20 11 HEMOGLOBIN A1C (GLYCOHEMOGLOBIN) 020 Next Appt Details Provider Name:Benjamin Andersen Leti , 04/23/2025 01:30:00 PM, [address] [place] [address], [place], [address], Insurance Providers Payer Name Payer Address Payer Phone Subscriber Number Group Number Insured Name Patient Relationship to Insured Coverage Start Date Coverage End Date [employer] Medicare Adv-36599 [address] [address] [place] [address] [id number] Henry Self - patient is the insured [facility] Claims [facility] Office of Community Care [address] [address] [place] [address] [id number] Miriam Henry Self - patient is the [...] [facility]- [facility], esophagus surgery 05/17/24 [facility]-Hiatal Hernia flare up 02/27/2021 [facility]- Hiatal hernia flare up 05/21/19
--- OUTSIDE RECORDS SUMMARY | 2025-03-19 15:03 | XMS_ITS | Clinical Summary ---
Author Organization [facility] Address [address] [place] [address] Phone Care Team Providers Care Shell Grader Name Role Phone Chang Diaz Primary Care Provider [phone] Allergies Active Allergy Reactions Criticality Noted Date [...] Diagnosed Date DM2 (diabetes mellitus, type 2) ([facility] V24, [facility] V28) HTN (hypertension) Hypercholesterolemia Hypothyroid Resolved Problems Problem Noted Date Diagnosed Date Resolved Date Endometrial cancer ([facility] V24, [facility] V28) 03/05/20 25 03/11/2025 Encounters Date Type Department Care Team Description 03/11/2025 3:35 PM EDT Anesthesia Event [facility] Main OR [address] [place] [address] Barak Rick MD Chang, Daniel J MD 03/11/2025 1:30 PM EDT - 03/11/2025 5:00 PM EDT Surgery [facility] OR [address] [place] [phone] Bessy Londono MD DAVINCI assisted total laparoscopic hysterectomy, bilateral salpingo-oophorectom y, sentinel lymph node biopsy. [75010 (CPT??)] 03/11/2025 11:57 AM EDT - 03/11/2025 7:14 PM EDT Hospital Encounter [facility] OR [address] [place] [phone] Bessy Londono MD Endometrial cancer (CMS/HCC V24, CMS/HCC V28) Discharge Disposition: Home or Self Care 03/06/2025 Telephone Pulmonology [facility] [address] [facility] [address] [place] [phone] Vivian Bassett RN 03/05/2025 2:20 PM EDT Consult [facility] [address] [facility] [address] [place] [phone] Bessy Londono MD Endometrial cancer (CMS/HCC V24, CMS/HCC V28) (Primary Dx) 02/22/2025 Telephone [facility] [address] [facility] [address] [place] [phone] Nela De La Torre, RN Appointment from [...] Coronary atherosclerosis of unspecified type of vessel, [place] or graft 07/25/2012 HTN (hypertension) 07/25/2012 Hypercholesterolemia 07/25/2012 DM2 (diabetes mellitus, type 2) ([facility] V24, CM S/HCC V28) 07/25/2012 Hypothyroid 07/25/2012 [...] EDT Office Visit [facility] [address] [facility] [address] [place] [address] Bessy Londono MD [address] [facility] [address] [place] [address] Health Maintenance Due Date Last Done Comments [...] ENDOTRACHEAL(NO CHARGE) Routine 03/11/2025 4:03 PM EDT SC LAP SURG W TOTAL HYSTERECTOMY FOR UTERUS [...] their performance characteristics were determined by [facility]. They have not been cleared [...] change to the diagnosis. 10:20 AM EDT [facility] Addendum electronically signed by Mayra Colón [...] FIGO 2022 stage IA2 10:20 AM T [facility] Comment MMR and p53 immunohistochemical tests are pending and will be reported as an addendum. 5 10:20 AM T [facility] Gross Description A. Lymph Node, [...] adipose tissue and contains markedly dilated vessels. Stain Remover sections are submitted in twenty-seven cassettes. 1-anterior [...] posterior wall (18) and additional nodules 20-22 retail service representative sections of detached mass, multiple pieces [...] three pieces. TS 5 10:20 AM EDT [facility] Synoptic Checklist ENDOMETRIUM ENDOMETRIUM - All [...] Nodes Examined: ?4 ? Number of Pelvic Ingraham Nodes Examined: ?4 ? Total Number of [...] Findings: ?Cystic atrophy 5 10:20 AM EDT [facility] Disclaimer Unless otherwise specified, all tissue is 10% NB formalin fixed and paraffin embedded. 5 10:20 AM EDT [facility] Lymph Node Lymph node specimen [...] LAB PATHOLOGY ORDERABLES Edited Result - Final [facility] [address] [place] [address], * Non-gynecologic cytology (03/11/2025 4:27 PM EDT) Final Diagnosis Peritoneal Washings, (ThinPrep, cell block): Negative for malignant cells. Mesothelial cells and scattered inflammatory cells present. 03/13/2025 4:45 PM EDT [facility] Specimen A Adequacy Satisfactory for evaluation 03/13/2025 4:45 PM EDT [facility] Gross Description A. Peritoneal Washings, pelvic washings: Received in Cytolyt 45 ml of clear fluid; 1 ThinPrep, 1 cell block Cell block in formalin @12:00-total formalin fixation time 9 hours. 03/13/2025 4:45 PM EDT [facility] Disclaimer Unless otherwise specified, all tissue is 10% NB formalin fixed and paraffin embedded. Technical cytopathology services provided by [facility], at [address] [place] [address] (CLIA # [id number]/Becki Hernandez MD, Java Developer Analyst.) 03/13/2025 4:45 PM EDT [facility] Wash Specimen obtained by peritoneal lavage / Unknown 03/11/2025 4:27 PM EDT 03/12/2025 12:16 PM EDT Bessy Londono MD LAB CYTOLOGY ORDERABLES Final Re sult [facility] [address] [place] [address], [place] [phone] * TH AN ENDOTRACHEAL(NO CHARGE) (03/11/2025 4:03 [...] - 100 mg/dL 03/11/2025 12:19 PM EDT [facility] Blood Capillary blood specimen / Unknown 03/11/2025 12:17 PM EDT 03/11/2025 12:20 PM EDT Bessy Londono MD LAB POINT OF CARE TE ST DOCKED DEVICE UNSOLICITED RESULTS Final Result [facility] [address] [place] [address], [place] [phone] * ECG 12 lead - Procedural (No Charge) (03/08/2025 11:16 AM EDT) Ventricular Rate ECG 69 BPM GEMUSE Atrial Rate 69 BPM GEMUSE P-R Interval 242 ms GEMUSE QRS Duration 88 ms GEMUSE Q-T Interval 416 ms GEMUSE QTc 445 ms GEMUSE P Wave [place] -3 degrees GEMUSE R [place] 20 degrees GEMUSE T [place] 49 degrees GEMUSE ECG Interpretation Sinus rhythm [...] K/mcL LAB HEMETOLOGY METHOD 03/08/2025 11:42 AM [facility] RBC 4.30 3.80 - 4.80 M/mcL LAB HEMETOLOGY METHOD 03/08/2025 11:42 AM [facility] Hemoglobin 12.7 11.5 - 16.0 g/dL LAB HEMETOLOGY METHOD 03/08/2025 11:42 AM [facility] Hematocrit 38.7 35.0 - 47.0 % LAB HEMETOLOGY METHOD 03/08/2025 11:42 AM [facility] MCV 89.6 79.0 - 98.0 FL LAB HEMETOLOGY METHOD 03/08/2025 11:42 AM [facility] MCH 29.4 27.0 - 32.0 pcg LAB HEMETOLOGY METHOD 03/08/2025 11:42 AM [facility] MCHC 32.8 32.0 - 37.0 g/dL LAB HEMETOLOGY METHOD 03/08/2025 11:42 AM [facility] RDW 12.8 11.0 - 15.0 % LAB HEMETOLOGY METHOD 03/08/2025 11:42 AM [facility] Platelets 255 130 - 400 K/mcL LAB HEMETOLOGY METHOD 03/08/2025 11:42 AM [facility] MPV 10.6 7.0 - 11.0 FL LAB HEMETOLOGY METHOD 03/08/2025 11:42 AM [facility] NRBC 0.0 <1.0 % LAB HEMETOLOGY METHOD 03/08/2025 11:42 AM [facility] NRBC Absolute 0.00 <0.10 K/mcL LAB HEMETOLOGY METHOD 03/08/2025 11:42 AM [facility] Neutrophils Relative 65.8 % LAB HEMETOLOGY METHOD 03/08/2025 11:42 AM [facility] Lymphocytes Relative 23.1 % LAB HEMETOLOGY METHOD 03/08/2025 11:42 AM [facility] Monocytes Relative 7.8 % LAB HEMETOLOGY METHOD 03/08/2025 11:42 AM [facility] Eosinophils Relative 2.1 % LAB HEMETOLOGY METHOD 03/08/2025 11:42 AM [facility] Basophils Relative 0.8 % LAB HEMETOLOGY METHOD 03/08/2025 11:42 AM [facility] Immature Granulocytes Relative 0.4 % LAB HEMETOLOGY METHOD 03/08/2025 11:42 AM [facility] Neutrophils Absolute 4.95 1.50 - 7.00 K/mcL LAB HEMETOLOGY METHOD 03/08/2025 11:42 AM [facility] Lymphocytes Absolute 1.74 1.00 - 5.00 K/mcL LAB HEMETOLOGY METHOD 03/08/2025 11:42 AM [facility] Monocytes Absolute 0.59 0.20 - 1.00 K/mcL LAB HEMETOLOGY METHOD 03/08/2025 11:42 AM [facility] Eosinophils Absolute 0.16 0.00 - 0.50 K/mcL LAB HEMETOLOGY METHOD 03/08/2025 11:42 AM [facility] Basophils Absolute 0.06 0.00 - 0.20 K/mcL LAB HEMETOLOGY METHOD 03/08/2025 11:42 AM [facility] Immature Granulocytes Absolute 0.03 0.00 - 0.03 K/mcL LAB HEMETOLOGY METHOD 03/08/2025 11:42 AM [facility] Blood Venous blood specimen / Unknown Venipuncture / Unknown 03/08/2025 11:06 AM EDT 03/08/2025 11:26 AM EDT us Bessy Londono MD LAB BLOOD ORDERABLES Final Resul t Performing Organization Address [facility]/ZIP Co de Phone Number [facility] [address] [place] [address], [place] [phone] * Type and screen (03/08/2025 11:06 AM EDT) Pathologist [facility] O 03/08/2025 12:43 PM EDT [facility] Rh Type Positive 03/08/2025 12:43 PM EDT [facility] Antibody Screen Negative 03/08/2025 12:43 PM EDT [facility] Blood Venous blood specimen / Unknown Venipuncture / Unknown 03/08/2025 11:06 AM EDT 03/08/2025 11:26 AM EDT us Bessy Londono MD LAB BLOOD BANK TEST ORDERABLES F inal Result [facility] [address] [place] [address], [place] [phone] * (ABNORMAL) Basic metabolic panel (03/08/2025 11:06 AM EDT) [facility] Sodium 139 133 - 145 mmol/L LAB CHEMISTRY METHOD 03/08/2025 11:58 AM [facility] Potassium 3.3(L) 3.5 - 5.5 mmol/L LAB CHEMISTRY METHOD 03/08/2025 11:58 AM EDT [facility] Chloride 104 96 - 110 mmol/L LAB CHEMISTRY METHOD 03/08/2025 11:58 AM T [facility] CO2 27 21 - 32 mmol/L LAB CHEMISTRY METHOD 03/08/2025 11:58 AM EDT [facility] Anion Gap 8 3 - 11 LAB CHEMISTRY METHOD 03/08/2025 11:58 AM EDT [facility] Glucose 196(H) 70 - 100 mg/dL LAB CHEMISTRY METHOD 03/08/2025 11:58 AM EDT [facility] BUN 10 5 - 25 mg/dL LAB CHEMISTRY METHOD 03/08/2025 11:58 AM EDT [facility] Creatinine 1.06 0.50 - 1.10 mg/dL LAB CHEMISTRY METHOD 03/08/2025 11:58 AM EDT [facility] eGFR 55(L) >=60 mL/min/1. 73m2 LAB CHEMISTRY METHOD 03/08/2025 11:58 AM EDT [facility] Comment:Calculation based on the??Chronic Kidney Disease Epidemiology Collaboration (CKD-EPI) equation refit??without adjustment for race. BUN/Creatinine Ratio 9.4 LAB CHEMISTRY METHOD 03/08/2025 11:58 AM EDT [facility] Calcium 9.3 8.5 - 10.5 mg/dL LAB CHEMISTRY METHOD 03/08/2025 11:58 AM EDT [facility] Blood Venous blood specimen / Unknown Venipuncture / Unknown 03/08/2025 11:06 AM EDT 03/08/2025 11:25 AM EDT us Bessy Londono MD LAB BLOOD ORDERABLES Final Resul t [facility] [address] [place] [address], from Last 3 Months Insurance [employer] MEDICARE Advance Directives Documents on File Type Date Recorded Patient Stain Remover Expl anation Power of Safety Admin Assistant 03/11/2025 12:58 PM HCP Power of Safety Admin Assistant 03/11/2025 12:47 PM HEAL TH CARE PROXY(NOT SIGNED) Care Teams Shell Grader Relationship Specialty Start Date End Date Chang Diaz [address] [place] [address] PCP - General Family Medicine 03/11/25
--- OUTSIDE RECORDS SUMMARY | 2025-03-19 15:04 | XMS_ITS ---
Author Organization [facility] Address [address] [facility] [place] [address] Care Team Providers Care Golf Club Head Former Name Role Phone Buddy Morrow MD Primary Care Provider Benjamin Skelton Unavailable [phone] Allergies Allergen (clinical drug ingredient) Drug/Non Drug [...] Ordered Date Performed Result Body Sit e 23219-PHUAGMC NAIL, 6 OR MORE 06/26/2024 N/A 82641-QVTP SKIN LESIONS, OVER 4 06/26/2024 N/A Encounters Encounter Location Date Provider Diagnosis [facility] [address] [place] [address] 06/26/2024 Benjamin Landeros Type 1 diabetes mellitus [...] INSTRUCTIONS.pdf) Pending Test Test Name Order Date 64363-PHGGOVY NAIL, 6 OR MORE 06/26/2024 79463-RADO SKIN LESIONS, OVER 4 06/26/20 24 Next Appt Details Follow Up: prn, Reason: Provider Name:Benjamin Landeros , 04/23/2025 01:30:00 PM, [address] [place], [address], Procedure Notes * Category Sub-Category Detail Notes [...] as necessary. Patient chooses, no pharmaceutical tx (11966) Keratoma Treatment Parring or Cutting o f Benign Hyperkeratotic Lesion(s) 65536 ( >4 Lesions) - The Benign hyperkeratotic lesions, as described above were pared, and/or cut utilizing a sterile #15 blade, tissue nippers, and/or dremel Progress Notes * Miriam NOGUEIRA JDOB: (73 yo F)Acc No.[id number]:06/26/2024 Progress Note Patient:?Tammie Noguiera Provider:?Benjamin Landeros DPM :1950???Age:73 Y???Sex:Female D ate:06/26/2024 Address[address], [place] Pcp:Buddy Morrow MD Subjective: * Chief Complaints: [...] ?Marital status: . 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 * Medications:?TakingPantopraz ole Sodium 40 MG Tablet [...] 2.?Type 1 diabetes mellitus with diabetic polyneuropathy?Procedure: 69369-VQTXOBI NAIL, 6 OR MORE ?Procedure: 11509-GRXT SKIN LESIONS, OVER 4 * Procedures:?Debride Nail 6-10:?Nail debridement?Nail debridement performed extensively to reduce/remove overall nail length, girth, thickness, subungual debris, and necrotic tissue, by manual and electrical means through the use of a nail nipper and/or dremel, to more viable healthy nail plate or bed tissue 1-5. Silver nitrate used for any petechial bleeding as necessary. Patient chooses, no pharmaceutical tx (50416).?Keratoma Treatment:?Parring or Cutting of Benign Hyperkeratotic Lesion(s)?40184 ( >4 Lesions) - The Benign hyperkeratotic lesions, as described above were pared, and/or cut utilizing a sterile #15 blade, tissue nippers, and/or dremel.? * Procedure Codes:?01778 DEBRI DE NAIL, 6 OR MORE, Modifiers: XS 04664 TRIM SKIN LESIONS, OVER 4, Modifiers: XS [...] Landeros DPM Date:?2023 Generated for Stephanie smith/Jareth/Elitting on:?03/19/2025 03:04 PM EDT History and Physical Notes * [...]
== END 2025-03-19 12:41 | disposition home or self-care (01) ==
LOC: HO.LAB 12:40
DX: E03.9 Hypothyroidism, unspecified (principal); R79.89 Other specified abnormal findings of blood chemistry
CPT/HCPCS: 36415; 84439; 84443

== ENCOUNTER 2025-04-11 13:44 | Outpatient (AMB) | payer MEDICARE, OTHER, SELFPAY ==
--- NOTE | 2025-04-11 13:41 | A.OFFVIS_ITS ---
Intake Visit Reasons: 3M follow up labs Intake Note: Patient is present for 3 month follow up/Labs Urology Medications: None Antibiotic Allergy: None Blood Thinner: Aspirin PVR: 212ml Lead Fire Protection Engineer Required: No Allergies hydrocodone [From VICODIN] Allergy (Unknown, Verified 04/11/25 13:50) HEADACHE oxycodone [OXYCODONE] Allergy (Unknown, Verified 04/11/25 13:50) HIVES procaine [From NOVOCAIN] Allergy (Unknown, Verified 04/11/25 13:50) FAINTED Medication List - Last Reconciled 04/11/25 by Emily Overton MD amitriptyline 25 mg PO DAILY aspirin 81 mg PO DAILY bisacodyl (Dulcolax (bisacodyl)) 10 mg (2 x 5 mg) PO BEDTIME cholecalciferol (vitamin D3) 25 mcg PO DAILY esomeprazole magnesium (Nexium) 40 mg PO DAILY exenatide microspheres ER 2 mg (0.85 mL) subcut QWEEK 90 days gabapentin 600 mg PO DAILY levothyroxine 112 mcg PO DAILY losartan 25 mg PO DAILY metformin 2,000 mg PO BID metoprolol tartrate 12.5 mg (1/2 x 25 mg) PO BID mirabegron ER (Myrbetriq) 25 mg PO DAILY multivitamin 1 tab PO DAILY niacin 50 mg PO BEDTIME simvastatin 40 mg PO BEDTIME 90 days HPI Comments Details: 04/11/25--3 is a 74-year-old female who was initially evaluated 11/07/2024 for urinary symptoms of incontinence. She was prescribed Myrbetriq 25 mg daily. 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 She states a Hairston catheter was placed during that admission. Evaluation today she is unable to provide a urine specimen random b ladder scan PVR 212 mL. She denies UTI symptoms. She states that she has noticed over 75% improvement in her bladder control, although she does get occasional urine leakage a couple times a week. We will continue Myrbetriq 25 mg daily follow-up in 6 months. 11/07/24--Miriam is a 74 year old female who is here for evaluation for urinary incontinence. Past Medical history significant for CAD, DM on diuretics prn. The patient complains of daytime urinary frequency, urinary incontinence, wears a pad, nocturia denies hematuria, dysuria, feeling of incomplete bladder emptying, history of kidney stones, I have discussed avoiding dietary bladder irritants, including to cut back on caffeine usage. The patient is unable to provide a urine sample. Bladder scan PVR minimal. She will leave urine sample at the lab later this week, trial of Myrbetriq. 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 Diabetes type 2, uncontrolled Surgical History History of hysterectomy History of abdominal paracentesis History of esophagogastroduodenoscopy (EGD) History of colonoscopy History of repair of hiatal hernia History of cardiac catheterization Hx of hammer toe correction Hx of shoulder surgery Hx of tonsillectomy Hx laparoscopic cholecystectomy Hx of appendectomy Family History Brother Diabetes Father Lung cancer Mother HTN (hypertension) Social History Household Members: Family Housing: House Are you a primary pediatric acute care unit nurse to a significant other at home: No Do you presently have visiting nurse or other home services: No Alcohol intake: current Alcohol intake frequency: holidays/special occasions o nly Patient Tobacco Use Status: Former Tobacco user Tobacco use type: Cigarette Years Smoked: 20 e-Cigarette/Vaping Use: Never Used Second Hand Smoke Exposure: Yes service: No Current occupational status: retired Cognitive needs: No Hearing needs: No Vision needs: Yes (Glasses) Review of Systems Const All systems reviewed & are unremarkable except as noted in HPI and below Reports no additional complaints Eyes Reports no additional complaints ENT Reports no additional complaints Card Reports no additional complaints Resp Reports no additional complaints GI Reports no additional complaints Reports as per HPI Musc Reports no additional complaints Skin/Breast Reports system reviewed and no additional complaints, except as documented Neuro Reports no additional complaints Psych Reports no additional complaints Endo Reports no additional complaints Mark/Lymph Reports no additional complaints Aller/Immun Reports no additional complaints Assessment & Plan Assessment & Plan (1) Urinary incontinence: Code(s): R32 - Unspecified urinary incontinence Category: Medical (2) Urinary frequency: Code(s): R35.0 - Frequency of micturition Category: Medical (3) OAB (overactive bladder): Code(s): N32.81 - Overactive bladder Category: Medical Plan We will continue Myrbetriq 25 mg daily follow-up in 6 months. Medications: Changed From metformin 1,000 mg PO BID 120 tabs 3RF To metformin 2,000 mg PO BID CLARE Lovett Refilled mirabegron ER (Myrbetriq) 25 mg PO DAILY 90 tabs 3RF urine leakage Emily Overton MD Patient Instructions: The patient had an opportunity to ask questions regarding treatment plan. The patient expressed understanding and agreement with the above treatment plan. The patient is aware they should contact our office by phone for worsening of their current condition or the appearance of new symptoms. Compliance is encouraged with any medications and followup testing that is ordered. It is a privilege to be allowed the opportunity to participate in the urologic care of your patient. If you have any questions or concerns regarding treatment for the above conditions please do not hesitate to contact me. The office telephone contact is [phone]. This note is constructed in part using voice recognition software. While every effort has been made to ensure accuracy data management engineer errors may have been included. Yours sincerely, Emily Overton MD Coding Level of Care Code Est Pt Level 4 (23880) Diagnoses Urinary incontinence R32 Urinary frequency R35.0 OAB (overactive bladder) N32.81
--- OUTSIDE RECORDS SUMMARY | 2025-04-11 14:21 | XMS_ITS ---
[facility] Address [address] [facility] [place], [place] [address] Care Team Providers Care Leasing Representative Name Role Phone Buddy Morrow MD Primary Care Provider Benjamin Skelton Unavailable [phone] Allergies Allergen (clinical drug ingredient) Drug/Non Drug [...] Ordered Date Performed Result Body Sit e 02448-JNOAIWE NAIL, 6 OR MORE 01/15/2025 N/A 73514-CMIR SKIN LESIONS, OVER 4 01/15/2025 N/A Encounters Encounter Location Date Provider Diagnosis [facility] [address] [address] 01/15/2025 Benjamin Landeros Type 1 diabetes mellitus [...] INSTRUCTIONS.pdf) Pending Test Test Name Order Date 29589-FIEEPYE NAIL, 6 OR MORE 01/15/2025 50471-EEFM SKIN LESIONS, OVER 4 01/15/20 25 Next Appt Details Follow Up: prn, Reason: Provider Name:Benjamin Landeros , 04/23/2025 01:30:00 PM, [address] [place], [address], Procedure Notes * Category Sub-Category Detail Notes [...] of a nail nipper and/or dremel-type grinder gear, to a more viable healthy nail plate [...] to maintain effectiveness in symptomatic relief - 23966 Keratoma Treatment Parring or Cutting o f [...] instrumentation by the physician of record - 30113 Progress Notes * Miriam NOGUEIRA JDOB: (74 yo F)Acc No.[id number]:01/15/2025 Progress Note Patient:Tammie GREEN Provider:?Benjamin Landeros DPM :1950???Age:74 Y???Sex:Female D ate:01/15/2025 Address:[facility] [address], [facility] Pcp:Buddy Morrow MD Subjective: * Chief Complaints: [...] ?Marital status: . 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 ???Drug/Alcohol:?AUDIT-C (Standard)?Did you have a drink containing [...] 2.?Type 1 diabetes mellitus with diabetic polyneuropathy?Procedure: 68370-WLPIKEY NAIL, 6 OR MORE ?Procedure: 97355-IHJW SKIN LESIONS, OVER 4 * Procedures:?Debride Nail [...] of a nail nipper and/or dremel-type grinder gear, to a more viable healthy nail plate [...] to maintain effectiveness in symptomatic relief - 25945.?Keratoma Treatment:?Parring or Cutting of Benign Hyperkeratotic Lesion(s)?(-57) [...] instrumentation by the physician of record - 25257.? * Procedure Codes:?93574 DEBRI DE NAIL, 6 OR MORE, Modifiers: XS 36321 TRIM SKIN LESIONS, OVER 4, Modifiers: XS [...] Landeros DPM Date:?2024 Generated for Stephanie smith/Jareth/Ania on:?04/11/2025 02:21 PM EDT History and Physical Notes * [...]
--- OUTSIDE RECORDS SUMMARY | 2025-04-11 14:21 | XMS_ITS | Encounter Summary ---
Author Organization [facility] Address [address] [place] [address] Care Team Providers Care Communications Program Manager Name Role Phone Buddy Mororw Primary Care Provider UnavailLinda Coleman PUMP REBUILDER Unavailable Unavailable Nancy Lopez MD Unavailable Slava Hernández PA-C Unavailable [phone] Encounter Details Date Type Department Care Team Description 08/17/2024 Orders Only [facility] Thoracic Surgery [place] [address] [facility] [address] [place] [phone] lSava Hernández PA-C [address] [facility] [address] [place] [phone] S/P repair of paraesophageal hernia; Hiatal hernia [...] gangrene documented in this encounter Care Teams Communications Program Manager Relationship Specialty Start Date End Date Buddy Morrow PCP - General Internal Medicine 07/25/12 Linda Melgar, PUMP REBUILDER Specialist Gastroenterology 04/18/24 Nancy Lopez MD Specialist Thoracic Surgery 04/18/24 Slava Hernández PA-C [address] [place] [phone] Specialist Thoracic Surgery 05/30/24 documented as of this encounter
--- OUTSIDE RECORDS SUMMARY | 2025-04-11 14:21 | XMS_ITS | Clinical Summary ---
Author Organization [facility] Address [address] [place] [address] Care Team Providers Care Small Engine Trainer Name Role Phone Buddy Morrow Primary Care Provider UnavailLinda Coleman NP Unavailable Unavailable Nancy Lopez MD Unavailable Slava Hernández PA-C Unavailable [phone] Allergies Active Allergy Reactions Severity Noted Date [...] fundoplication, EGD with savory dilation performed at [facility] by Dr.Laki Lopez. Her presurgical symptoms [...] 2013 PNEUMOCOCCAL VACCINE (1 - PCV) 2013 BMI CHECK/ADVISE 11/28/2024 INFLUENZA (Season Ended) 2025 019, 11/03/2018, 11/15/2016, Additional history exists Insurance Payer Benefit Plan / Group Subscriber ID Effective Dates Phone Address Type [facility] MEDICARE FFS [facility] MDCR-[id number] PPO $0 [place] [id number] 2023-Pres ent [facility] MEDICARE ADVANTAGE [address] [address] [place] [address] PPO [id number]-[id number] [place] -[place] $0 TARZAN [id number] 2000-Pres ent [address] [place] [address] PPO [id number] [place] [id number] 2013-Pres ent [address] [place] [address] MEDICARE [id number] [place] $0 TARZAN [id number] 2012-08/21 [address] [place] [address] PPO Kid-ztg-Fnst ice Care Teams Small Engine Trainer Relationship Specialty Start Date End Date Buddy Morrow PCP - General Internal Medicine 07/25/12 Linda Melgar, ANESTHESIOLOGIST ATTENDING Specialist Gastroenterology 04/18/24 Nancy Lopez MD Specialist Thoracic Surgery 04/18/24 Slava Hernández PA-C [address] [place] [phone] Specialist Thoracic Surgery 05/30/24
--- OUTSIDE RECORDS SUMMARY | 2025-04-11 14:22 | XMS_ITS | Encounter Summary ---
Author Organization [facility] Address [address] [place] [address] Care Team Providers Care Signal System Testing Maintainer Name Role Phone Buddy Morrow Primary Care Provider Unavailabl e Linda Melgar SOCIAL PROFESSIONALS Unavailable Unavailable Nancy Lopez MD Unavailable Slava Hernández PA-C Unavailable [phone] Encounter Details Date Type Department Care Team Description 04/10/2024 Stone Carriage Operator Report Medical Records [address] [place] [address] [place] [address] Social History Tobacco Use Types Packs/Day Years Used Date Smoking Tobacco: Former Alcohol Use Standard Drinks/Week Comments Not Asked 0 (1 standard drink = 0.6 oz pur e alcohol) Sex Assigned at Date Recorded Not on file documented as of this encounter Plan of Treatment Not on file documented as of this encounter Visit Diagnoses Not on filedocumented in this encounter Care Teams Signal System Testing Maintainer Relationship Specialty Start Date End Date Buddy Morrow PCP - General Internal Medicine 07/25/12 Linda Melgar SOCIAL PROFESSIONALS Specialist Gastroenterology 04/18/24 Nancy Lopez MD Specialist Thoracic Surgery 04/18/24 Slava Hernández PA-C [address] [place] [phone] Specialist Thoracic Surgery 05/30/24 documented as of this encounter
--- OUTSIDE RECORDS SUMMARY | 2025-04-11 14:22 | XMS_ITS | Encounter Summary ---
Author Organization [facility] Address [address] [place] [address] Care Team Providers Care Vending Manager Name Role Phone Buddy Morrow Primary Care Provider Unavailabl e Linda Melgar SUPERVISOR GLUING Unavailable Unavailable Nancy Lopez MD Unavailable Slava Hernández PA-C Unavailable [phone] Encounter Details Date Type Department Care Team Description 02/14/2024 Orders Only Medical Records [address] [place] [id number] Linda Melgar, SUPERVISOR GLUING Social History Tobacco Use Types Packs/Day Years [...] Results * OUTSIDE CT (01/13/2024) Linda Melgar SUPERVISOR GLUING RADIOLOGY documented in this encounter Visit Diagnoses Not on filedocumented in this encounter Care Teams Vending Manager Relationship Specialty Start Date End Date Buddy Morrow PCP - General Internal Medicine 07/25/12 Linda Melgar, SUPERVISOR GLUING Specialist Gastroenterology 04/18/24 Nancy Lopez MD Specialist Thoracic Surgery 04/18/24 Slava Hernández PA-C [address] [place] [phone] Specialist Thoracic Surgery 05/30/24 documented as of this encounter
--- OUTSIDE RECORDS SUMMARY | 2025-04-11 14:22 | XMS_ITS | Encounter Summary ---
Author Organization [facility] Address [address] [place] [address] Care Team Providers Care Bottle Blowing Machine Tender Name Role Phone Buddy Morrow Primary Care Provider Unavailabl e Linda Melgar TELECOMMUNICATOR Unavailable Unavailable Nancy Lopez MD Unavailable Slava Hernández PA-C Unavailable [phone] Encounter Details Date Type Department Care Team Description 02/16/2018 Release of Information Medical Records [address] [place] [id number] Abstract, Provider Social History Tobacco Use Types [...] on filedocumented in this encounter Care Teams Bottle Blowing Machine Tender Relationship Specialty Start Date End Date Buddy Morrow PCP - General Internal Medicine 07/25/12 Linda Melgar, TELECOMMUNICATOR Specialist Gastroenterology 04/18/24 Nancy Lopez MD Specialist Thoracic Surgery 04/18/24 Slava Hernández PA-C [address] [place] [phone] Specialist Thoracic Surgery 05/30/24 documented as of this encounter
--- OUTSIDE RECORDS SUMMARY | 2025-04-11 14:22 | XMS_ITS | Encounter Summary ---
Author Organization [facility] Address [address] [place] [address] Care Team Providers Care Diversified Crops Supervisor Name Role Phone Buddy Morrow Primary Care Provider Unavailabl e Linda Melgar BILLING DEPARTMENT SUPERVISOR Unavailable Unavailable Nancy Lopez MD Unavailable Slava Hernández PA-C Unavailable [phone] Encounter Details Date Type Department Care Team Description 05/17/2024 Hospital Medical Records [address] [place], [place] [id number] [place] [address] Social History Tobacco Use Types Packs/Day Years Used Date Smoking Tobacco: Former Alcohol Use Standard Drinks/Week Comments Not Asked 0 (1 standard drink = 0.6 oz pur e alcohol) Sex Assigned at Date Recorded Not on file documented as of this encounter Plan of Treatment Not on file documented as of this encounter Visit Diagnoses Not on filedocumented in this encounter Care Teams Diversified Crops Supervisor Relationship Specialty Start Date End Date Buddy Morrow PCP - General Internal Medicine 07/25/12 Linda Melgar, BILLING DEPARTMENT SUPERVISOR Specialist Gastroenterology 04/18/24 Nancy Lopez MD Specialist Thoracic Surgery 04/18/24 Slava Hernández PA-C [address] [place] [phone] Specialist Thoracic Surgery 05/30/24 documented as of this encounter
--- OUTSIDE RECORDS SUMMARY | 2025-04-11 14:22 | XMS_ITS | Patient Health Record ---
[facility] Organization [facility] Address [address] [facility] [place], [place] [address] Care Team Providers Care Art Education Professor Name Role Phone Buddy Morrow MD Primary Care Provider Benjamin Skelton Unavailable [phone] Allergies Allergen (clinical drug ingredient) Drug/Non Drug [...] Problem Acquired hammer toe of right foot (5631852929846064 ) Other hammer toe(s) (acquired), right foot (M20.41) Active confirmed Response to treatment, Improvemen t Problem Acquired hammer toe of left foot (6478736176302326 ) Other hammer toe(s) (acquired), left foot (M20.42) Active confirmed Response to treatment, Improvemen t Problem Polyneuropathy due to diabetes mellitus type I (747727173) 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 confirmed Vital Signs Blood pressure diastolic 70 mm Hg 01/15/2025 Height 5ft4in in 01/15/2025 Blood pressure systolic 103 mm Hg 01/15/2025 Weight 200 lbs 01/15/2025 BMI 34.33 kg/m2 01/15/2025 Procedures Procedure Date Ordered Date Performed Result Body Sit e 23380-KOTAEBX NAIL, 6 OR MORE 06/26/2024 N/A 54014-QJDF SKIN LESIONS, OVER 4 06/26/2024 N/A 92155-QEYAVMY NAIL, 6 OR MORE 10/09/2024 N/A 39947-PXZL SKIN LESIONS, OVER 4 10/09/2024 N/A 83209-GHMHSHX NAIL, 6 OR MORE 01/15/2025 N/A 58455-OCYR SKIN LESIONS, OVER 4 01/15/2025 N/A Encounters Encounter Location Date Provider Diagnosis [address] [address] 06/26/2024 Benjamin Landeros Type 1 diabetes mellitus with diabetic polyneuropathy E10.42 ; Tinea unguium B35.1 ; Other hammer toe(s) (acquired), right foot M20.41 and Other hammer toe(s) (acquired), left foot M20.[address] [address] 10/09/2024 Benjaminabram Landeros Type 1 diabetes mellitus with diabetic polyneuropathy E10.42 and Tinea unguium B35.[address] [address] 01/15/2025 Benjaminabram Landeros Type 1 diabetes mellitus with diabetic [...] 02/11/2015 Hemoglobin A1c 12/02/2015 Hemoglobin A1c 06/03/2017 80362-JFOKNBM NAIL, 6 OR MORE 10/09/2024 15716-SITRHJI NAIL, 6 OR MORE 01/15/2025 35551-TAQOVOS NAIL, 6 OR MORE 09/12/2020 51884-NBKFBGZ NAIL, 6 OR MORE 12/12/2020 53001-EMTFZRT NAIL, 6 OR MORE 03/13/2021 88301-USWTSZF NAIL, 6 OR MORE 06/12/2021 55856-JJENHOS NAIL, 6 OR MORE 09/18/2021 27570-QLCJBYF NAIL, 6 OR MORE 12/18/2021 55123-PVOQBHH NAIL, 6 OR MORE 03/23/2022 53619-KJQZLTU NAIL, 6 OR MORE 06/25/2022 04704-GOZQHRX NAIL, 6 OR MORE 09/24/2022 62161-DNXJWFB NAIL, 6 OR MORE 12/24/2022 62820-JDEKAML NAIL, 6 OR MORE 03/25/2023 46677-CDGAHQJ NAIL, 6 OR MORE 06/24/2023 94167-HBGGRGA NAIL, 6 OR MORE 09/27/2023 50425-TKSHTDR NAIL, 6 OR MORE 12/27/2023 31528-AXKIMEQ NAIL, 6 OR MORE 03/27/2024 04532-ZNEKJUZ NAIL, 6 OR MORE 06/26/2024 24815-HJCLMAS NAIL, 6 OR MORE 08/22/2015 01254-PHIZHFT NAIL, 6 OR MORE 05/16/2015 91198-UOXDUZE NAIL, 6 OR MORE 02/11/2015 93854-RJLXCBU NAIL, 6 OR MORE 11/02/2013 52617-HUYUYYP NAIL, 6 OR MORE 02/01/2014 34819-RJATFTJ NAIL, 6 OR MORE 05/10/2014 32061-FMPOUWH NAIL, 6 OR MORE 08/13/2014 96598-LKAIYNM NAIL, 6 OR MORE 11/12/2014 26747-TUTZSZN NAIL, 6 OR MORE 07/27/2011 51833-WMYHXXS NAIL, 6 OR MORE 10/15/2011 70018-QNBFPEQ NAIL, 6 OR MORE 01/14/2012 10682-FUTMTOB NAIL, 6 OR MORE 04/11/2012 69273-GMOPCBD NAIL, 6 OR MORE 07/28/2012 86985-DTGOQQU NAIL, 6 OR MORE 10/13/2012 58033-PJDBPSZ NAIL, 6 OR MORE 01/12/2013 26863-MLUAMYG NAIL, 6 OR MORE 04/13/2013 09866-CLXERSW NAIL, 6 OR MORE 08/03/2013 40202-WTVYXOC NAIL, 6 OR MORE 12/02/2015 33285-GKANPXK NAIL, 6 OR MORE 03/02/2016 96527-BOGVJRM NAIL, 6 OR MORE 06/11/2016 69434-IYIAVEJ NAIL, 6 OR MORE 09/10/2016 63752-UMYNZYU NAIL, 6 OR MORE 12/10/2016 21632-IHLBSHR NAIL, 6 OR MORE 03/04/2017 78688-GRUEARX NAIL, 6 OR MORE 06/07/2017 72327-GCGBXUG NAIL, 6 OR MORE 09/06/2017 59839-RMLAZKQ NAIL, 6 OR MORE 12/09/2017 26282-BPBCGOU NAIL, 6 OR MORE 03/10/2018 98990-NGZOSGJ NAIL, 6 OR MORE 06/13/2018 22962-ZVIGCSC NAIL, 6 OR MORE 09/12/2018 84323-UDPGDLP NAIL, 6 OR MORE 12/26/2018 27996-YHLWSYC NAIL, 6 OR MORE 03/27/2019 62299-QMFMELJ NAIL, 6 OR MORE 06/26/2019 25343-SAPOIQV NAIL, 6 OR MORE 09/25/2019 07825-RZKOGWO NAIL, 6 OR MORE 12/25/2019 22529-MJBVNYS NAIL, 6 OR MORE 06/13/2020 28058- Debride <25 sq cm 08/03/2013 79464-WFFK SKIN LESIONS, OVER 4 11/02/20 13 30840-QVCV SKIN LESIONS, OVER 4 11/12/20 14 32069-KOJL SKIN LESIONS, OVER 4 08/13/20 14 84871-WERW SKIN LESIONS, OVER 4 05/10/20 14 24997-FXCO SKIN LESIONS, OVER 4 02/02/20 14 76081-AQLK SKIN LESIONS, OVER 4 02/12/20 15 26980-PIIS SKIN LESIONS, OVER 4 05/16/20 15 55467-SENJ SKIN LESIONS, OVER 4 08/22/20 15 58420-HXMX SKIN LESIONS, OVER 4 12/02/19 16 52187-FGFV SKIN LESIONS, OVER 4 06/13/20 20 07859-OSYL SKIN LESIONS, OVER 4 12/25/19 20 92659-NBAB SKIN LESIONS, OVER 4 09/25/20 19 37732-VNUL SKIN LESIONS, OVER 4 06/26/20 19 20620-NVXT SKIN LESIONS, OVER 4 03/27/20 19 50464-AAVQ SKIN LESIONS, OVER 4 12/26/19 19 49162-VKRC SKIN LESIONS, OVER 4 09/12/20 18 57017-UFXX SKIN LESIONS, OVER 4 06/13/20 18 06628-PYOM SKIN LESIONS, OVER 4 03/10/20 18 71179-OWRB SKIN LESIONS, OVER 4 12/09/19 18 94761-DNDI SKIN LESIONS, OVER 4 09/06/20 17 38053-FPXO SKIN LESIONS, OVER 4 03/04/20 17 06281-IJLB SKIN LESIONS, OVER 4 06/07/20 17 88822-QWNP SKIN LESIONS, OVER 4 12/10/19 17 21682-EUHP SKIN LESIONS, OVER 4 09/10/20 16 08199-LSVS SKIN LESIONS, OVER 4 06/11/20 16 44344-MKBY SKIN LESIONS, OVER 4 03/02/20 16 70901-JXRS SKIN LESIONS, OVER 4 06/26/20 24 43267-EGOF SKIN LESIONS, OVER 4 03/27/20 24 26232-QOCV SKIN LESIONS, OVER 4 12/27/19 24 39867-WYOF SKIN LESIONS, OVER 4 09/27/20 05849-XVOL SKIN LESIONS, OVER 4 06/24/20 23 68981-SQOZ SKIN LESIONS, OVER 4 03/25/20 19976-NEPR SKIN LESIONS, OVER 4 12/24/19 23 92870-BMMK SKIN LESIONS, OVER 4 09/24/20 24391-CVOM SKIN LESIONS, OVER 4 06/25/20 25579-ZCBT SKIN LESIONS, OVER 4 03/23/20 22 60521-ASVY SKIN LESIONS, OVER 4 12/18/19 22 67411-QSQU SKIN LESIONS, OVER 4 09/18/20 21 55238-DSQU SKIN LESIONS, OVER 4 06/12/20 21 65933-IPPN SKIN LESIONS, OVER 4 03/13/20 21 11234-ZHVM SKIN LESIONS, OVER 4 12/12/19 21 31007-SEWJ SKIN LESIONS, OVER 4 09/12/20 20 83657-YDXD SKIN LESIONS, OVER 4 01/15/20 25 27857-ZFHG SKIN LESIONS, OVER 4 10/09/20 24 30725-MKXK SKIN LESIONS, 2 TO 4 07/27/20 11 27735-MUVU SKIN LESIONS, 2 TO 4 04/13/20 13 62937-FSKZ SKIN LESIONS, 2 TO 4 01/12/20 13 67507-JYFN SKIN LESIONS, 2 TO 4 10/13/20 12 42695-BPKZ SKIN LESIONS, 2 TO 4 07/28/20 12 45103-JFOB SKIN LESIONS, 2 TO 4 04/11/20 12 14826-BFGO SKIN LESIONS, 2 TO 4 01/14/20 12 51428-NKGS SKIN LESIONS, 2 TO 4 10/15/20 11 HEMOGLOBIN A1C (GLYCOHEMOGLOBIN) 020 Next Appt Details Provider Name:Benjamin Landeros , 04/23/2025 01:30:00 PM, [address] [place], [address], Insurance Providers Payer Name Payer Address Payer Phone Subscriber Number Group Number Insured Name Patient Relationship to Insured Coverage Start Date Coverage End Date [employer] Medicare Adv-[id number] [address] [address] [place] [address] [id number] Miriam Henry Self - patient is the insured [facility] Claims [facility] Office of Community Care [address] [address] [place] [address] [phone] [id number] Miriam Henry Self - patient is the insured Medical (General) History Medical History History ICD Code hyperlipidemia thyroid disorder mumps measles hypertension headaches/migraines chicken pox cataracts Hiatal hernia Knee Pain type II diabetes Surgical History Surgery Date(Month/Year) appendectomy 1975 cholecystectomy 1970 foot surgery sneha bilateral feet 1 990 tonsillectomy 1993 cataract surgery OD 06/18/2013 retinal surgery OD 07/04/2013 rotator cuff tear repair 04/26/2019 hiatal hernia repair Cataract surgery 04/30/24 Esophageal recon 2023 Hospitalization History Reason Date(Month/Year) [facility] virus 11/21/2017 [facility] hi[facility]nia [facility], esophagus surgery 05/17/24 [facility] [place] Hernia flare up 02/27/2021 [facility] [place] 05/21/19
--- OUTSIDE RECORDS SUMMARY | 2025-04-11 14:22 | XMS_ITS ---
Author Organization [facility] Address [address] [facility] [place], [place] [address] Care Team Providers Care Convention Worker Name Role Phone Buddy Morrow MD Primary Care Provider Benjamin Skelton Unavailable [phone] Allergies Allergen (clinical drug ingredient) Drug/Non Drug [...] Ordered Date Performed Result Body Sit e 53823-XSJLEZG NAIL, 6 OR MORE 10/09/2024 N/A 09714-UQFF SKIN LESIONS, OVER 4 10/09/2024 N/A Encounters Encounter Location Date Provider Diagnosis [facility] [address] [address] 10/09/2024 Benjamin Landeros Type 1 diabetes mellitus with diabetic polyneuropathy E10.42 and Tinea unguium B35.1 Assessments Encounter Date Diagnosis (ICD Code) Assessment Notes Treatment Notes Treatment Clinical Notes Section Notes 10/09/2024 Type 1 diabetes mellitus with diabetic polyneuropathy (ICD-10 - E10.42) 10/09/2024 Tinea unguium (ICD-10 - B35.1) 10/09/2024 Other Plan Of Treatment Pending Test Test Name Order Date 58485-FTSVCJI NAIL, 6 OR MORE 10/09/2024 75789-DEIY SKIN LESIONS, OVER 4 10/09/20 24 Next Appt Details Follow Up: prn, Reason: Provider Name:Benjamin Landeros , 04/23/2025 01:30:00 PM, [address] [place] [address], [phone], Procedure Notes * Category Sub-Category Detail Notes [...] use of a nail nipper and/or dremel-type roll grinder operator, to a more viable healthy nail plate or bed tissue 6-10. Silver nitrate used for any petechial bleeding as necessary. Definitive antifungal treatment options have been reviewed and discussed with the patient. The patient chooses, no pharmaceutical tx - 91502 Keratoma Treatment Parring or Cutting o f Benign Hyperkeratotic Lesion(s) (-57) More than 4 Lesions - The Benign hyperkeratotic lesions, as described in exam, were pared, and/or cut utilizing a sterile 15 blade, tissue nippers, and/or dremel - 60319 Progress Notes * Miriam NOGUEIRA JDOB: (74 yo F)Acc No.[id number]:10/09/2024 Progress Note Patient:?ROLANDOODILIA Tammie yonathan Ward Provider:?Benjamin Landeros DPM :1950???Age:74 Y???Sex:Female D ate:10/09/2024 Address:[facility] [address], [facility] Pcp:Buddy Morrow MD Subjective: * Chief Complaints: [...] ?Marital status: . 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 * Medications:?TakingPantopraz ole Sodium 40 MG Tablet [...] use of a nail nipper and/or dremel-type roll grinder operator, to a more viable healthy nail plate or bed tissue 6-10. Silver nitrate used for any petechial bleeding as necessary. Definitive antifungal treatment options have been reviewed and discussed with the patient. The patient chooses, no pharmaceutical tx - 89578.?Keratoma Treatment:?Parring or Cutting of Benign Hyperkeratotic Lesion(s)?(-57) More than 4 Lesions - The Benign hyperkeratotic lesions, as described in exam, were pared, and/or cut utilizing a sterile 15 blade, tissue nippers, and/or dremel - 41095.? * Procedure Codes:?16670 DEBRI DE NAIL, 6 OR MORE, Modifiers: XS 69631 TRIM SKIN LESIONS, OVER 4, Modifiers: XS * Follow Up:?prn * Images: * Sign off status: Completed true * Provider:?Benjamin Landeros DPM Date:?2023 Generated for Stephanie smith/Jareth/Ania on:?04/11/2025 02:22 PM EDT History and Physical Notes * [...]
--- OUTSIDE RECORDS SUMMARY | 2025-04-11 14:22 | XMS_ITS ---
Author Organization [facility] Address [address] [facility] [place] [address] Care Team Providers Care Dismantler Name Role Phone Buddy Morrow MD Primary Care Provider Benjamin Skelton Unavailable [phone] Allergies Allergen (clinical drug ingredient) Drug/Non Drug [...] Ordered Date Performed Result Body Sit e 43959-JVHYYAE NAIL, 6 OR MORE 06/26/2024 N/A 64402-OXPM SKIN LESIONS, OVER 4 06/26/2024 N/A Encounters Encounter Location Date Provider Diagnosis [facility] [place] [address] [place] [address] 06/26/2024 Benjamin Landeros Type 1 diabetes mellitus [...] INSTRUCTIONS.pdf) Pending Test Test Name Order Date 84879-YWAUCYD NAIL, 6 OR MORE 06/26/2024 58639-EVDW SKIN LESIONS, OVER 4 06/26/20 24 Next Appt Details Follow Up: prn, Reason: Provider Name:Benjamin Landeros , 04/23/2025 01:30:00 PM, [address] [place], [address], Procedure Notes * Category Sub-Category Detail Notes [...] as necessary. Patient chooses, no pharmaceutical tx (97940) Keratoma Treatment Parring or Cutting o f Benign Hyperkeratotic Lesion(s) 48571 ( >4 Lesions) - The Benign hyperkeratotic lesions, as described above were pared, and/or cut utilizing a sterile #15 blade, tissue nippers, and/or dremel Progress Notes * Miriam NOGUEIRA JDOB: (73 yo F)Acc No.[id number]:06/26/2024 Progress Note Patient:?Tammie Nogueira Provider:?Benjamin Landeros DPM :1950???Age:73 Y???Sex:Female D ate:06/26/2024 Address:[address], [id number] Pcp:Buddy Morrow MD Subjective: * Chief Complaints: [...] ?Marital status: . 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 * Medications:?TakingPantopraz ole Sodium 40 MG Tablet [...] 2.?Type 1 diabetes mellitus with diabetic polyneuropathy?Procedure: 14533-KOHBLMV NAIL, 6 OR MORE ?Procedure: 08610-CBJU SKIN LESIONS, OVER 4 * Procedures:?Debride Nail 6-10:?Nail debridement?Nail debridement performed extensively to reduce/remove overall nail length, girth, thickness, subungual debris, and necrotic tissue, by manual and electrical means through the use of a nail nipper and/or dremel, to more viable healthy nail plate or bed tissue 1-5. Silver nitrate used for any petechial bleeding as necessary. Patient chooses, no pharmaceutical tx (57032).?Keratoma Treatment:?Parring or Cutting of Benign Hyperkeratotic Lesion(s)?58216 ( >4 Lesions) - The Benign hyperkeratotic lesions, as described above were pared, and/or cut utilizing a sterile #15 blade, tissue nippers, and/or dremel.? * Procedure Codes:?43909 DEBRI DE NAIL, 6 OR MORE, Modifiers: XS 26802 TRIM SKIN LESIONS, OVER 4, Modifiers: XS [...] Landeros DPM Date:?2023 Generated for Stephanie smith/Jareth/Elitting on:?04/11/2025 02:22 PM EDT History and Physical [...]
--- OUTSIDE RECORDS SUMMARY | 2025-04-11 14:22 | XMS_ITS | Encounter Summary ---
Author Organization [facility] Address [address] [place] [address] Care Team Providers Care Windows Deployment Technician Name Role Phone Buddy Morrow Primary Care Provider Unavailabl e Linda Melgar ACCESS CLINICIAN Unavailable Unavailable Nancy Lopez MD Unavailable Slava Hernández PA-C Unavailable [phone] Encounter Details Date Type Department Care Team Description 04/13/2024 [facility] Thoracic Surgery [address] [phone] Nancy Lopez MD [address] [id number] Social History Tobacco Use Types Packs/Day Years Used Date Smoking Tobacco: Former Alcohol Use Standard Drinks/Week Comments Not Asked 0 (1 standard drink = 0.6 oz pur e alcohol) Sex Assigned at Date Recorded Not on file documented as of this encounter Plan of Treatment Not on file documented as of this encounter Visit Diagnoses Not on filedocumented in this encounter Care Teams Windows Deployment Technician Relationship Specialty Start Date End Date Buddy Morrow PCP - General Internal Medicine 07/25/12 Linda Melgar, ACCESS CLINICIAN Specialist Gastroenterology 04/18/24 Nancy Lopez MD Specialist Thoracic Surgery 04/18/24 Slava Hernández PA-C [address] [address] Specialist Thoracic Surgery 05/30/24 documented as of this encounter
--- OUTSIDE RECORDS SUMMARY | 2025-04-11 14:22 | XMS_ITS | Encounter Summary ---
Author Organization [facility] Address [address] [place] [address] Care Team Providers Care Intercell Connector Placer Name Role Phone Buddy Morrow Primary Care Provider Unavailabl e Linda Melgar SENIOR GAMES TECHNICIAN Unavailable Unavailable Nancy Lopez MD Unavailable Slava Hernández PA-C Unavailable [phone] Encounter Details Date Type Department Care Team Description 01/25/2024 Transfer Records Medical Records [address] [place] [id number] [place] [address] Social History Tobacco Use Types Packs/Day Years Used Date Smoking Tobacco: Former Alcohol Use Standard Drinks/Week Comments Not Asked 0 (1 standard drink = 0.6 oz pur e alcohol) Sex Assigned at Date Recorded Not on file documented as of this encounter Plan of Treatment Not on file documented as of this encounter Visit Diagnoses Not on filedocumented in this encounter Care Teams Intercell Connector Placer Relationship Specialty Start Date End Date Buddy Morrow PCP - General Internal Medicine 07/25/12 Linda Melgar, SENIOR GAMES TECHNICIAN Specialist Gastroenterology 04/18/24 Nancy Lopez MD Specialist Thoracic Surgery 04/18/24 Slava Hernández PA-C [address] [place] [phone] Specialist Thoracic Surgery 05/30/24 documented as of this encounter
--- OUTSIDE RECORDS SUMMARY | 2025-04-11 14:22 | XMS_ITS | Clinical Summary ---
Author Organization [facility] Address [address] [place] [address] Phone Care Team Providers Care Medical Scientific Officer Name Role Phone Chang Diaz Primary Care Provider [phone] Allergies Active Allergy Reactions Criticality Noted Date [...] Max Daily Amount: 12 mg 12 tablet Active Additional Information Patient not taking.Reported on 03/26/2025 docusate sodium (COLACE) 100 mg capsule Take 1 capsule (100 mg total) by mouth 2 (two) times a day for 10 days. 20 each 5 025 acetaminophen (TYLENOL) 500 mg tablet Take 2 tablets (1,000 mg total) by mouth every 8 (eight) hours if needed for mild pain for up to 10 days. 30 tablet 5 025 Active Problems Problem Noted Date Diagnosed Date DM2 (diabetes mellitus, type 2) ([facility]/HCC V24, CM /[facility] V28) HTN (hypertension) Hypercholesterolemia Hypothyroid Resolved Problems Problem Noted Date Diagnosed Date Resolved Date Endometrial cancer (CMS/HCC V24, [facility] V28) 03/05/20 25 03/11/2025 Encounters Date Type Department Care Team Description 03/26/2025 11:58 AM EDT - 03/26/2025 11:59 PM EDT Hospital Encounter [facility] Ultrasound [address] [place] [address] Groin swelling; Localized swelling, mass and lump, left upper limb Discharge Disposition: Home or Self Care 03/26/2025 11:40 AM EDT Office Visit Breast [facility] [address] [facility] [address] [facility] [address] [place] [address] Bessy Londono MD Groin swelling (Primary Dx); Localized swelling, mass and lump, left upper limb 03/11/2025 3:35 PM EDT Anesthesia Event [facility] Main OR [address] [place] [address] Barak Rick MD Chang, Daniel J, MD 03/11/2025 1:30 PM EDT - 03/11/2025 5:00 PM EDT Surgery [facility] Main OR [address] [place] [phone] Bessy Londono MD DAVINCI assisted total laparoscopic hysterectomy, bilateral salpingo-oophorectom y, sentinel lymph node biopsy. [[id number] (CPT??)] 03/11/2025 11:57 AM EDT - 03/11/2025 7:14 PM EDT Hospital Encounter [facility] Main OR [address] [place] [address] Bessy Londono MD Endometrial cancer (CMS/HCC V24, CMS/HCC V28) Discharge Disposition: Home or Self Care 03/06/2025 Telephone Pulmonology [facility] [address] [facility] [address] [place] [phone] Vivian Bassett, RN 03/05/2025 2:20 PM EDT Consult [facility] [address] [phone] Bessy Londono MD Endometrial cancer (CMS/HCC V24, CMS/HCC V28) (Primary Dx) 02/22/2025 Telephone Breast [facility] [address] [facility] [address] [place] [address] Nela De La Torre, RN Appointment from [...] Coronary atherosclerosis of unspecified type of vessel, pit river or graft 07/25/2012 HTN (hypertension) 07/25/2012 Hypercholesterolemia 07/25/2012 DM2 (diabetes mellitus, type 2) (CMS/HCC V24, CM S/HCC V28) 07/25/2012 Hypothyroid 07/25/2012 [...] Sign Reading Time Taken Comments Blood Pressure 142/80 03/26/2025 11:33 AM EDT Pulse 69 03/26/2025 11:33 AM EDT Temperature 36.3 ??C (97.4 ??F) 03/26/2025 11:33 AM E DT Respiratory Rate 20 03/11/2025 6:39 PM EDT Oxygen Saturation 100% 03/11/2025 6:39 PM EDT Inhaled Oxygen Concentration - - Weight 91.6 kg (202 lb) 03/05/2025 2:22 PM EDT Height 162.6 cm (5' 4 ) 03/05/2025 2:22 PM EDT Body Mass Index 34.67 03/05/2025 2:22 PM EDT Plan of Treatment Upcoming Encounters Date Type Department Care Team (Late st Contact Info) Description 04/29/2025 10:20 AM EDT Office Visit [facility] [address] [facility] [address] [place] [phone] Bessy Londono MD [address] [facility] [address] [place] [address] Health Maintenance Due Date Last Done Comments [...] Procedure Name Priority Date/Time Associated Diagnosis Comments VAS US DUPLEX LOWER EXT VENOUS LEFT Routine 03/26/2025 12:25 PM EDT Groin swelling Localized swelling, mass and lump, left upper limb OXYGEN THERAPY, ADULT Routine 03/11/2025 5:34 PM EDT TISSUE EXAM Routine 03/11/2025 4:36 PM EDT Endometrial cancer (CMS/HCC V24, CMS/HCC V28) NON-GYNECOLOGIC CYTOLOGY Routine 03/11/2025 4:27 PM EDT Endometrial cancer (CMS/HCC V24, CMS/HCC V28) TH AN ENDOTRACHEAL(NO CHARGE) Routine 03/11/2025 4:03 PM EDT PA LAP SURG W TOTAL HYSTERECTOMY FOR UTERUS [...] V28) from Last 3 Months Results * Vascular US duplex lower extremity venous left (03/26/2025 12:25 PM EDT) Anatomical Region Laterality Modality Vascular, Abdomen Ultrasound 03/26/2025 12:1 9 PM EDT Impressions 03/26/2025 12:19 PM EDT NO LEFT LOWER EXTREMITY DEEP VENOUS THROMBOSIS. -------- FINAL REPORT -------- Dictated By: Kamilah Shen Dictated Date: 03/26/2025 12:19 ET Assigned Physician: Kamilah Shen Reviewed and Electronically Signed By: Kamilah Shen Signed Date: 03/26/2025 12:19 ET Workstation ID: [id number] Transcribed By: Self Edit Transcribed Date: 03/26/2025 12:19 ET Narrative 03/26/2025 12:19 PM EDT Ultrasound venous duplex left lower extremity INDICATION: edema groin swelling left TECHNIQUE: 2-D and color Doppler imaging of the left lower extremity venous vasculature with compression and augmentation maneuvers. COMPARISON: No priors available. FINDINGS: There is normal flow, compression, and augmentation from the common femoral through the popliteal vein. No focal fluid collection. Procedure Note Kamilah hSen MD - 03/26/2025 Ultrasound venous duplex left lower extremity INDICATION: edema groin swelling left TECHNIQUE: 2-D and color Doppler imaging of the left lower extremityvenous vasculature with compression and augmentation maneuvers. COMPARISON: No priors available. FINDINGS: There is normal flow, compression, and augmentation from the commonfemoral through the popliteal vein. No focal fluid collection. IMPRESSION: NO LEFT LOWER EXTREMITY DEEP VENOUS THROMBOSIS. -------- FINAL REPORT -------- Dictated By: Kamilah Shen Dictated Date: 03/26/2025 12:19 ET Assigned Physician: Kamilah Shen Reviewed and Electronically Signed By: Kamilah Shen Signed Date: 03/26/2025 12:19 ET Workstation ID: [id number] Transcribed By: Self Edit Transcribed Date: 03/26/2025 12:19 ET us Bessy Londono MD CV VASCULAR PROCEDURES Final Res ult * Tissue exam (03/11/2025 4:36 PM EDT) [...] and their performance characteristics were determined by [facility]. They have not [...] change to the diagnosis. 10:20 AM EDT [facility] Addendum electronically signed by [...] IA FIGO 2022 stage IA2 10:20 AM [facility] Comment MMR and p53 immunohistochemical tests are pending and will be reported as an addendum. 10:20 AM EDT [facility] Gross Description A. Lymph Node, #1 [...] adipose tissue and contains markedly dilated vessels. Bag Machine Tender sections are submitted in twenty-seven cassettes. 1-anterior [...] posterior wall (18) and additional nodules 20-22 merchandising representative sections of detached mass, multiple pieces [...] three pieces. TS 5 10:20 AM EDT [facility] Synoptic Checklist ENDOMETRIUM ENDOMETRIUM [...] Nodes Examined: ?4 ? Number of Pelvic [place] Nodes Examined: ?4 ? Total Number of [...] Findings: ?Cystic atrophy 5 10:20 AM EDT [facility] Disclaimer Unless otherwise specified, all tissue is 10% NB formalin fixed and paraffin embedded. 5 10:20 AM EDT [facility] Lymph Node Lymph node specimen / [...] LAB PATHOLOGY ORDERABLES Edited Result - Final Performing Organization Address [facility]/ZIP Co de Phone Number [facility] [address] [place] [address], [place] [phone] * Non-gynecologic cytology (03/11/2025 4:27 PM EDT) Final Diagnosis Peritoneal Washings, (ThinPrep, cell block): Negative for malignant cells. Mesothelial cells and scattered inflammatory cells present. 03/13/2025 4:45 PM EDT [facility] Specimen A Adequacy Satisfactory for evaluation 03/13/2025 4:45 PM EDT [facility] Gross Description A. Peritoneal Washings, pelvic washings: Received in Cytolyt 45 ml of clear fluid; 1 ThinPrep, 1 cell block Cell block in formalin @12:00-total formalin fixation time 9 hours. 03/13/2025 4:45 PM EDT [facility] Disclaimer Unless otherwise specified, all tissue is 10% NB formalin fixed and paraffin embedded. Technical cytopathology services provided by [facility], at [address] [place] [id number] (CLIA # [id number]/Becki Hernandez MD, Heating Operators Engineer.) 03/13/2025 4:45 PM EDT [facility] Wash Specimen obtained by peritoneal lavage / Unknown 03/11/2025 4:27 PM EDT 03/12/2025 12:16 PM EDT us Bessy Londono MD LAB CYTOLOGY ORDERABLES Final Re sult Performing Organization Address [facility]/ZIP Co de Phone Number [facility] [address] [place] [address], [place] [phone] * TH AN ENDOTRACHEAL(NO CHARGE) (03/11/2025 4:03 [...] difficulty assessment: 1 - vent by mask Barak Rick MD ANESTHESIA ORDERABLES Final Re sult * (ABNORMAL) POCT Glucose, blood (03/11/2025 12:17 PM EDT) Pathologist [facility] Glucose POCT 211(H) 70 - 100 mg/dL 03/11/2025 12:19 PM EDT [facility] Blood Capillary blood specimen / Unknown 03/11/2025 12:17 PM EDT 03/11/2025 12:20 PM EDT Bessy Londono MD LAB POINT OF CARE TE ST DOCKED DEVICE UNSOLICITED RESULTS Final Result [facility] [address] [place] [address], [place] [phone] * ECG 12 lead - Procedural (No Charge) (03/08/2025 11:16 AM EDT) Ventricular Rate ECG 69 BPM GEMUSE Atrial Rate 69 BPM GEMUSE P-R Interval 242 ms GEMUSE QRS Duration 88 ms GEMUSE Q-T Interval 416 ms GEMUSE QTc 445 ms GEMUSE P Wave [place] -3 degrees GEMUSE R [place] 20 degrees GEMUSE T [place] 49 degrees GEMUSE ECG Interpretation Sinus rhythm [...] K/mcL LAB HEMETOLOGY METHOD 03/08/2025 11:42 AM [facility] RBC 4.30 3.80 - 4.80 M/[facility] HEMETOLOGY METHOD 03/08/2025 11:42 AM [facility] Hemoglobin 12.7 11.5 - 16.0 g/dL LAB HEMETOLOGY METHOD 03/08/2025 11:42 AM [facility] Hematocrit 38.7 35.0 - 47.0 % LAB HEMETOLOGY METHOD 03/08/2025 11:42 AM [facility] MCV 89.6 79.0 - 98.0 FL LAB HEMETOLOGY METHOD 03/08/2025 11:42 AM [facility] MCH 29.4 27.0 - 32.0 pcg LAB HEMETOLOGY METHOD 03/08/2025 11:42 AM [facility] MCHC 32.8 32.0 - 37.0 g/dL LAB HEMETOLOGY METHOD 03/08/2025 11:42 AM [facility] RDW 12.8 11.0 - 15.0 % LAB HEMETOLOGY METHOD 03/08/2025 11:42 AM [facility] Platelets 255 130 - 400 K/mcL LAB HEMETOLOGY METHOD 03/08/2025 11:42 AM [facility] MPV 10.6 7.0 - 11.0 FL LAB HEMETOLOGY METHOD 03/08/2025 11:42 AM [facility] NRBC 0.0 <1.0 % LAB HEMETOLOGY METHOD 03/08/2025 11:42 AM [facility] NRBC Absolute 0.00 <0.10 K/mcL LAB HEMETOLOGY METHOD 03/08/2025 11:42 AM [facility] Neutrophils Relative 65.8 % LAB HEMETOLOGY METHOD 03/08/2025 11:42 AM [facility] Lymphocytes Relative 23.1 % LAB HEMETOLOGY METHOD 03/08/2025 11:42 AM [facility] Monocytes Relative 7.8 % LAB HEMETOLOGY METHOD 03/08/2025 11:42 AM [facility] Eosinophils Relative 2.1 % LAB HEMETOLOGY METHOD 03/08/2025 11:42 AM [facility] Basophils Relative 0.8 % LAB HEMETOLOGY METHOD 03/08/2025 11:42 AM [facility] Immature Granulocytes Relative 0.4 % LAB HEMETOLOGY METHOD 03/08/2025 11:42 AM [facility] Neutrophils Absolute 4.95 1.50 - 7.00 K/mcL LAB HEMETOLOGY METHOD 03/08/2025 11:42 AM [facility] Lymphocytes Absolute 1.74 1.00 - 5.00 K/mcL LAB HEMETOLOGY METHOD 03/08/2025 11:42 AM [facility] Monocytes Absolute 0.59 0.20 - 1.00 K/mcL LAB HEMETOLOGY METHOD 03/08/2025 11:42 AM EDT [facility] Eosinophils Absolute 0.16 0.00 - 0.50 K/[facility] HEMETOLOGY METHOD 03/08/2025 11:42 AM EDT [facility] Basophils Absolute 0.06 0.00 - 0.20 K/[facility] HEMETOLOGY METHOD 03/08/2025 11:42 AM EDT [facility] Immature Granulocytes Absolute 0.03 0.00 - 0.03 K/[facility] HEMETOLOGY METHOD 03/08/2025 11:42 AM EDT [facility] Blood Venous blood specimen / Unknown Venipuncture / Unknown 03/08/2025 11:06 AM EDT 03/08/2025 11:26 AM EDT us Bessy Londono MD LAB BLOOD ORDERABLES Final Resul t Performing Organization Address City/[facility]/ZIP Co de Phone Number [facility] [address] [place] [address], [place] [phone] * Type and screen (03/08/2025 11:06 AM EDT) ABO Group O 03/08/2025 12:43 PM EDT [facility] Rh Type Positive 03/08/2025 12:43 PM EDT [facility] Antibody Screen Negative 03/08/2025 12:43 PM EDT [facility] Blood Venous blood specimen / Unknown Venipuncture / Unknown 03/08/2025 11:06 AM EDT 03/08/2025 11:26 AM EDT us Bessy Londono MD LAB BLOOD BANK TEST ORDERABLES F inal Result [facility] [address] [place] [address], [place] [phone] * (ABNORMAL) Basic metabolic panel (03/08/2025 11:06 AM EDT) Sodium 139 133 - 145 mmol/L LAB CHEMISTRY METHOD 03/08/2025 11:58 AM [facility] Potassium 3.3(L) 3.5 - 5.5 mmol/L LAB CHEMISTRY METHOD 03/08/2025 11:58 AM [facility] Chloride 104 96 - 110 mmol/L LAB CHEMISTRY METHOD 03/08/2025 11:58 AM [facility] CO2 27 21 - 32 mmol/L LAB CHEMISTRY METHOD 03/08/2025 11:58 AM [facility] Anion Gap 8 3 - 11 LAB CHEMISTRY METHOD 03/08/2025 11:58 AM [facility] Glucose 196(H) 70 - 100 mg/dL LAB CHEMISTRY METHOD 03/08/2025 11:58 AM [facility] BUN 10 5 - 25 mg/dL LAB CHEMISTRY METHOD 03/08/2025 11:58 AM [facility] Creatinine 1.06 0.50 - 1.10 mg/dL LAB CHEMISTRY METHOD 03/08/2025 11:58 AM [facility] eGFR 55(L) >=60 mL/min/1. 73m2 LAB CHEMISTRY METHOD 03/08/2025 11:58 AM [facility] Comment:Calculation based on the??Chronic Kidney Disease Epidemiology Collaboration (CKD-EPI) equation refit??without adjustment for race. BUN/Creatinine Ratio 9.4 LAB CHEMISTRY METHOD 03/08/2025 11:58 AM [facility] Calcium 9.3 8.5 - 10.5 mg/dL LAB CHEMISTRY METHOD 03/08/2025 11:58 AM [facility] Blood Venous blood specimen / Unknown Venipuncture / Unknown 03/08/2025 11:06 AM EDT 03/08/2025 11:25 AM EDT us Bessy Londono MD LAB BLOOD ORDERABLES Final Resul t [facility] [address] [place] [address], [place] [phone] from Last 3 Months Insurance [employer] MEDICARE [facility] Advance Directives Documents on File Type Date Recorded Patient Bag Machine Tender Expl anation Power of Snow Plow Operator 03/11/2025 12:58 PM HCP Power of Snow Plow Operator 03/11/2025 12:47 PM HEAL TH CARE PROXY(NOT SIGNED) Care Teams Medical Scientific Officer Relationship Specialty Start Date End Date Chang Diaz [address] [place] [phone] PCP - General Family Medicine 03/11/25
== END 2025-04-11 14:11 | disposition home or self-care (01) ==
LOC: HO.HUSH 13:44
PROVIDERS: PCP Internal Medicine; Visit Provider Urology
DX: R32 Unspecified urinary incontinence (principal); R35.0 Frequency of micturition; N32.81 Overactive bladder
CPT/HCPCS: 99214

== ENCOUNTER → 2025-04-11 13:44 | Outpatient (BNVA) | payer MEDICARE, OTHER, SELFPAY | PROVIDERS: PCP Internal Medicine; Visit Provider Urology | DX: R32 Unspecified urinary incontinence (principal); R35.0 Frequency of micturition; N32.81 Overactive bladder | CPT/HCPCS: 99212 ==

== ENCOUNTER 2025-06-15 10:11 | Outpatient (REF) | payer MEDICARE, OTHER, SELFPAY ==
[2025-06-15 10:24] LABS: MANUAL DIFF FLAG NO
[2025-06-15 10:45] LABS: Appearance Urine Clear; Glucose Urine UA Negative (Negative); PH 6.0 (5.0-9.0); Specific Gravity - Urine 1.010 (1.005-1.025); UMIC TRIGGER UACC YES
[2025-06-15 10:45] LABS: Hematocrit 38.2 % (37.0-47.0); Hemoglobin 12.5 g/dl (12.0-16.0); Imm Gran Abs Auto 0.03 X10*3/uL (0.00-0.03); Imm Gran Pct Auto 0.4 % (0.0-0.4); Lymphocytes Absolute Auto 2.1 X10*3/uL (1.2-4.9); Mean Corpuscular HGB Conc 32.7 g/dl (31.0-35.0); Mean Corpuscular Hemoglobin 28.8 pg (27.0-33.0); Mean Corpuscular Volume 88.0 fL (80.0-98.0); NRBC Abs Auto 0.000 X10*3/uL (0.0-0.012); NRBC Pct Auto 0.0 /100WBC (0.0-0.2); Platelet Count 230 X10*3/uL (160-400); Red Blood Count 4.34 X10*6/uL (4.20-5.50); White Blood Count 8.6 X10*3/uL (4.8-10.8)
[2025-06-15 10:53] LABS: Hemoglobin A1C 170.4817 umol/L; Total Hemoglobin (HGBA1C) 3318.2276 umol/L
[2025-06-15 11:30] LABS: Alanine Aminotransferase 24 U/L (0-31); Albumin Level 3.8 g/dL (3.5-5.0); Alkaline Phosphatase 54 U/L (39-117); Anion Gap 15 (12-20); Aspartate Amino Transferase 21 U/L (5-31); Blood Urea Nitrogen 12 mg/dL (9-16); Calcium 9.5 mg/dL (8.4-10.2); Carbon Dioxide 29 mmol/L (22-29); Chloride 102 mmol/L (96-108); Cholesterol 117 mg/dL (<200); Estimated Glomerular Filt Rate > 60; HDL Cholesterol 47 mg/dL (>40); Potassium 4.1 mmol/L (3.3-5.1); Sodium 142 mmol/L (135-145); Total Protein 6.7 g/dL (6.5-8.0); Triglycerides 115 mg/dL (<150)
[2025-06-15 11:38] LABS: Free T4 (Free Thyroxine) 1.03 ng/dL (0.71-1.85)
== END 2025-06-15 10:12 | disposition home or self-care (01) ==
LOC: HO.LAB 10:11
DX: E11.8 Type 2 diabetes mellitus with unspecified complications (principal); I10 Essential (primary) hypertension; M18.12 Unilateral primary osteoarthritis of first carpometacarpal joint, left hand; I44.0 Atrioventricular block, first degree; M25.473 Effusion, unspecified ankle; E66.9 Obesity, unspecified; K44.9 Diaphragmatic hernia without obstruction or gangrene; E03.9 Hypothyroidism, unspecified; E78.5 Hyperlipidemia, unspecified
CPT/HCPCS: 36415; 80053; 80061; 81001; 82306; 83036; 84439; 84443; 85025

== ENCOUNTER 2025-06-17 13:28 | Outpatient (AMB) | payer MEDICARE, OTHER, SELFPAY ==
[2025-06-17 13:31] VITALS: BP 108/60; PULSE 73; TEMP 36.3; O2SAT 98; BMI 32.4
--- NOTE | 2025-06-17 13:31 | MHC.PC.OV ---
Vital Signs 06/17/25 13:31 Height 5 ft 4 in Weight 189 lb BMI 32.4 BP 108/60 Blood Pressure Location Lt brachial Position Sitting Pulse 73 Pulse Source Pulse Oximeter Temp 97.3 F Temp Source Temporal Artery Scan Pulse Oximetry (%) 98 Oxygen Delivery Method Room Air Intake Visit Reasons: hypothyroid/hld/htn Allergies hydrocodone (From VICODIN) Allergy (Unknown, Verified 06/17/25 13:40) HEADACHE oxycodone (OXYCODONE) Allergy (Unknown, Verified 06/17/25 13:40) HIVES procaine (From NOVOCAIN) Allergy (Unknown, Verified 06/17/25 13:40) FAINTED Medication List - Last Reconciled 06/17/25 by CLARE Lovett amitriptyline 25 mg PO DAILY aspirin 81 mg PO DAILY bisacodyl (Dulcolax (bisacodyl)) 10 mg (2 x 5 mg) PO BEDTIME cholecalciferol (vitamin D3) 25 mcg PO DAILY cinnamon bark (Cinnamon) 1,000 mg PO BID esomeprazole magnesium (Nexium) 40 mg PO DAILY gabapentin 600 mg PO DAILY levothyroxine 112 mcg PO DAILY losartan 25 mg PO DAILY metformin 2,000 mg PO BID metoprolol tartrate 12.5 mg (1/2 x 25 mg) PO BID mirabegron ER (Myrbetriq) 25 mg PO DAILY multivitamin 1 tab PO DAILY niacin 50 mg PO BEDTIME semaglutide (Ozempic) 0.25 mg (0.368 mL) subcut QWEEK simvastatin 40 mg PO BEDTIME 90 days Tobacco use date assessed: 06/17/25 Fall risk assessment: 1 Fall in past year Last assessed Fall Risk: 06/17/25 Dental Screening Dental Screen Date: 06/17/25 Did you have a dental visit in the last 12 months?: No Did you have a dental problem in the last 6 months where you did not have access to dental care?: No Was dental information given to patient?: Patient declined HPI hypothyroid/hld/htn HPI Details The patient is a 74-year-old female presenting with a review of recent lab results and medication concerns. The patient has a history of Type 2 Diabetes Mellitus, with a recent A1c level of 6.9, indicating a decrease from previous levels. She was previously on exenatide microsphere ER 2 mg qwk, which was changed to Ozempic due to insurance coverage issues, and she has not yet started the new medication. The patient reports neuropathy, for which she was prescribed gabapentin. She initially took 600 mg three times a day for nerve pain in her shoulder and neuropathy, but currently, she is on a 600 mg daily dose. She noted an increase in neuropathy symptoms when she ran out of gabapentin. The patient has a history of hiatal hernia, which has been surgically addressed twice, but recent imaging indicates its recurrence. She experiences heartburn more frequently now, despite previous surgeries to fix her esophagus and hernia. She continues to take Nexium for gastroesophageal reflux disease (GERD). 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 Diabetes type 2, uncontrolled Surgical History History of hysterectomy History of abdominal paracentesis History of esophagogastroduodenoscopy (EGD) History of colonoscopy History of repair of hiatal hernia History of cardiac catheterization Hx of hammer toe correction Hx of shoulder surgery Hx of tonsillectomy Hx laparoscopic cholecystectomy Hx of appendectomy Family History Brother Diabetes Father Lung cancer Mother HTN (hypertension) Social History Household Members: Family Housing: House Are you a primary landcare facilitator to a significant other at home: No Do you presently have visiting nurse or other home services: No Alcohol intake: current Alcohol intake frequency: holidays/special occasions only Patient Tobacco Use Status: Former Tobacco user Tobacco use type: Cigarette Years Smoked: 20 e-Cigarette/Vaping Use: Never Used Second Hand Smoke Exposure: Yes service: No Current occupational status: retired Cognitive needs: No Hearing needs: No Vision needs: Yes (Glasses) Questionnaire PHQ-9 Over the last 2 weeks, how often have you been bothered by any of the following problems? 1. Little interest or pleasure in doing things: not at all 2. Feeling down, depressed, or hopeless: not at all 3. Trouble falling or staying asleep, or sleeping too much: several days 4. Feeling tired or having little energy: several days 5. Poor appetite or overeating: several days 6. Feeling bad about yourself - or that you are a failure or have let yourself or your family down: not at all 7. Trouble concentrating on things, such as reading the newspaper or watching television: not at all 8. Moving or speaking so slowly that other people could have noticed. Or the opposite - being so fidgety or restless that you have been moving around a lot more than usual: not at all 9. Thoughts that you would be better off or of hurting yourself in some way: not at all Total score: 3 Depression Screening Interpretation: Negative Depression Screening Done: Yes Source: Developed by Drs. Hugh Sanon, Kajal Fuentes, Sam Padgett and colleagues, with an educational melissa from [employer]. Thrive Questionnaire Date Thrive assessed: 12/18/24 I am a: Patient What is your living situation today?: I have a steady place to live Within the past 12 months, did the food you bought not last and you didn't have the money to get more?: Never true Within the past 12 months, did you worry whether your food would run out before you got money to buy more?: Never true Do you have trouble paying for medicines?: No Do you have trouble getting transportation to medical appointments?: No Do you have trouble paying your heating and electricity bill?: No Do you have trouble taking care of your child, family member or friend?: No Do you have trouble with day-to-day activities such as bathing, preparing meals, shopping, managing finances, etc.?: No Are you currently unemployed and looking for a job?: No Are you interested in more education?: No Please select the resources that you would like help with: None Currently or been in a relationship where the following occur: No concerns reported THRIVE Score: 0 AUDIT C Alcohol Use Questionnaire (AUDIT-C) 1. How often do you have a drink containing alcohol?: Monthly or less 2. How many drinks containing alcohol do you have on a typical day when you are drinking?: 1 or 2 3. How often do you have six or more drinks on one occasion?: Never Total Score: 1 GHAZAL-7 AMB Questionnaire GHAZAL-7 Date GHAZAL - 7 assessed: 12/18/24 Feeling nervous, anxious, or on edge: 0 = Not at all Not being able to stop or control worryin = Not at all Worrying too much about different things: 0 = Not at all Trouble relaxin = Not at all Being so restless that it is hard to sit still: 0 = Not at all Becoming easily annoyed or irritable: 0 = Not at all Feeling afraid as if something awful might happen: 0 = Not at all Total GHAZAL-7 score (0-4 normal; 5-9 mild; 10-14 moderate; 15-21 severe): 0 Source: Developed by Drs. Hugh Sanon, Kajal Fuentes, aSm Padgett and colleagues, with an educational melissa from [employer]. Review of Systems Const Denies body aches, Denies chills, Denies fever(s), Denies headache(s) and Denies poor appetite Eyes Reports no additional complaints ENT Denies dysphagia, Denies dizziness, Denies headache(s) and Denies odynophagia Card Denies chest pain, Denies syncope, Denies irregular heart rhythm, Denies lightheadedness and Denies dyspnea Resp Denies cough and Denies dyspnea GI Denies abdominal pain, Reports constipation (improves with medication), Denies dysphagia, Reports heartburn (on and off depending on what she eats), Denies diarrhea, Denies nausea, Denies odynophagia and Denies vomiting Reports no additional complaints Musc Denies deformity, Reports arthralgias (bilateral knees) and Denies joint swelling Skin/Breast Reports system reviewed and no additional complaints, except as documented Neuro Denies dizziness, Denies syncope and Denies headache(s) Psych Reports no additional complaints Endo Denies cold intolerance and Denies heat intolerance Mark/Lymph Denies easy bleeding and Denies easy bruising Physical exam (Primary Care) Vital Signs: Last Vital Signs Temp 97.3 F 06/17/25 13:31 Pulse 73 06/17/25 13:31 BP 108/60 06/17/25 13:31 Pulse Ox 98 06/17/25 13:31 Oxygen Delivery Method Room Air 06/17/25 13:31 BMI result Body Mass Index 32.4 Tobacco/Smoking Status: Tobacco use Status Tobacco use date assessed 06/17/25 06/17/25 13:37 Patient Tobacco Use Status Former Tobacco user 06/17/25 13:37 Tobacco use type Cigarette 06/17/25 13:37 e-Cigarette/Vaping Use Never Used 06/17/25 13:37 PHQ-9: PHQ-9 Score PHQ-9: Total score 3 06/30/25 20:05 Depression Screening Interpretation: Negative Thrive Assessment: Date of Thrive Assessment Date Thrive assessed 12/18/24 06/17/25 13:37 Currently or been in a relationship where the following occur: No concerns reported Const General: cooperative, healthy appearing, comfortable and no acute distress Orientation/consciousness: patient oriented x3 HENMT Head: Yes normocephalic Ears: hearing grossly normal bilaterally General nose exam: Normal external nose present Eyes General: appearance normal, both eyes and all related structures Conjunctivae: conjunctivae normal Neck Neck: Yes full ROM and Yes no lymphadenopathy Resp Effort & Inspection: normal respiratory effort Auscultation: clear to auscultation bilaterally, no crackles, no rales, no rhonchi and no wheezes Cardio Rate: regular rate Rhythm: regular rhythm Heart sounds: S1 normal heart sound present, S2 normal heart sound present and no murmurs GI Inspection: Yes obesity Palpation (GI): Soft to palpation and nontender Auscultation: normal bowel sounds General: Yes no CVA tenderness Back/Spine/Pelvis Back: no CVA tenderness Skin General skin exam: no rashes or lesions noted Neuro General: patient oriented x3 Gait exam (Neuro): Normal gait present Extrem General: Yes normal to inspection, Yes full ROM and No edema Right upper extremity: full ROM Left upper extremity: full ROM Right lower extremity: full ROM and knee Details: no tenderness and no swelling; no edema Left lower extremity: full ROM and knee Details: no tenderness and no swelling; no edema Psych Affect: normal affect Attitude: cooperative Insight: Good insight present (Psych) Judgement: Good judgement present (Psych) Results Reviewed Results Reviewed: Laboratory Tests 06/15/25 06/15/25 10:19 10:23 WBC 8.6 RBC 4.34 Hgb 12.5 Hct 38.2 MCV 88.0 MCH 28.8 MCHC 32.7 RDW 13.2 Plt Count 230 MPV 10.3 Immature Gran % (Auto) 0.4 Sodium 142 Potassium 4.1 Chloride 102 Carbon Dioxide 29 Anion Gap 15 BUN 12 Creatinine 0.88 Estimated GFR > 60 Fasting Glucose 151 H Estimat Average Glucose 151 Hemoglobin A1c % 6.9 H Calcium 9.5 Total Bilirubin 0.7 AST 21 ALT 24 Alkaline Phosphatase 54 Total Protein 6.7 Albumin 3.8 Triglycerides 115 Cholesterol 117 LDL Cholesterol, Calc 47 HDL Cholesterol 47 25-OH Vitamin D Total 85.0 TSH 1.89 Free T4 1.03 Urine Color Yellow Urine Appearance Clear Urine pH 6.0 Ur Specific [place] 1.010 Urine Protein Negative Urine Glucose (UA) Negative Urine Ketones Negative Urine Blood Negative Urine Nitrite Negative Ur Leukocyte Esterase Trace H Urine RBC 0-2 Urine WBC 0-5 Ur Squamous Epith Cells 0-2 Urine Bacteria None Seen Hyaline Casts 0-2 Coding Level of Care Code Est Pt Level 4 (63620) Diagnoses Elevated TSH R79.89 Diabetes mellitus with coincident hypertension E11.9; I10 Atherosclerotic cardiovascular disease I25.10 Essential hypertension I10 Hypertension type: essential hypertension Diabetic polyneuropathy associated with type 2 diabetes mellitus E11.42 Uncontrolled type 2 diabetes mellitus with hyperglycemia E11.65 Glycemic state: with hyperglycemia Obesity (BMI 30-39.9) E66.9 Type 2 diabetes mellitus with unspecified complications E11.8 Acquired hypothyroidism E03.9 Hypothyroidism type: acquired First degree heart block I44.0 Time Spent (min) 39 Assessment & Plan Assessment & Plan (1) Elevated TSH: Code(s): R79.89 - Other specified abnormal findings of blood chemistry Category: Medical Plan: Tsh 1.89 and T4 1.03 Euthyroid will continue monitor (2) Diabetes mellitus with coincident hypertension: Code(s): E11.9 - Type 2 diabetes mellitus without complications; I10 - Essential (primary) hypertension Category: Medical (3) Atherosclerotic cardiovascular disease: Code(s): I25.10 - Atherosclerotic heart disease of [place] coronary artery without angina pectoris Category: Medical Plan: The patient had a cardiac catheterization in 2018 that shows 60% stenosis in the ostial PLV branch. Echocardiogram shows LVEF 65-70% with mild diastolic dysfunction. The patient is clinically stable and has no anginal symptoms. Continue aspirin, beta-blockers and statins. In the past, beta-shannon dosing was decreased. (4) Hypertension: Code(s): I10 - Essential (primary) hypertension Category: Medical Qualifiers: Hypertension type: essential hypertension Qualified Code(s): I10 - Essential (primary) hypertension (5) Diabetic polyneuropathy associated with type 2 diabetes mellitus: Code(s): E11.42 - Type 2 diabetes mellitus with diabetic polyneuropathy Category: Medical (6) Diabetes type 2, uncontrolled: Code(s): E11.65 - Type 2 diabetes mellitus with hyperglycemia Category: Medical Qualifiers: Glycemic state: with hyperglycemia Qualified Code(s): E11.65 - Type 2 diabetes mellitus with hyperglycemia (7) Obesity (BMI 30-39.9): Code(s): E66.9 - Obesity, unspecified Category: Medical (8) Type 2 diabetes mellitus with unspecified complications: Code(s): E11.8 - Type 2 diabetes mellitus with unspecified complications Category: Medical (9) Hypothyroidism: Code(s): E03.9 - Hypothyroidism, unspecified Category: Medical Qualifiers: Hypothyroidism type: acquired Qualified Code(s): E03.9 - Hypothyroidism, unspecified (10) First degree heart block: Code(s): I44.0 - Atrioventricular block, first degree Category: Medical Plan The patient will enhance diabetes control by adopting Metformin dosing adjustments from 1000mg once to BID aimed at reaching and maintaining target glycemic levels, limiting complications. Preventative interventions and medication counseling will manage her GERD and lifestyle-induced exacerbations. The patient was advised on cholesterol stabilization through diet to curb her elevated triglycerides. Close monitoring of her condition, notably the hiatal hernia and knee pain, remains crucial, prioritizing anti-inflammatory measures and potential interventions judged by symptom severity and frequency. We established follow-up for diabetes progression and response to the modified regimen in three months. The patient reports that her knee pain is not excruciating because she could walk long distance before feeling any soreness in her knees. The patient also does not want to depend on medication to fall a sleep and rather falling asleep naturally. Reinforced sleep hygiene. Continue cholecalciferol 25 mcg daily. Gabapentin 600 mg daily for nerve pain. Levothyroxine 112 mcg daily, TSH elevated, we repeat TSH along with T4 and advise after resulted. Furosemide 20 mg p.r.n.-reports leg swelling only in the summer months. Amitriptyline 25 mg daily ongoing for headaches. Metoprolol tartrate 12.5 mg b.i.d., losartan 25 mg daily ongoing for blood pressure management. Reinforced low-sodium diet. History of CAD continue aspirin 81 mg and simvastatin 40 mg at bedtime. The patient had a cardiac catheterization in 2018 that shows 60% stenosis in the ostial PLV branch. Echocardiogram shows LVEF 65-70% with mild diastolic dysfunction. The patient is clinically stable and has no anginal symptoms. Continue aspirin, beta-blockers and statins. In the past, beta-shannon dosing was decreased. Patient was informed and verbally consented to the use of an ambient scribe for clinic note documentation during this visit. Orders: Orders Comprehensive [place]. Panel Fast 3 Months I10 - Essential (primary) hypertension, I25.10 - Atherosclerotic heart disease of [place] coronary artery without angina pectoris, E78.5 - Hyperlipidemia, unspecified, E11.69 - Type 2 diabetes mellitus with other specified complication, E11.65 - Type 2 diabetes mellitus with hyperglycemia, Z79.4 - residential (current) use of insulin, E11.8 - Type 2 diabetes mellitus with unspecified complications, E66.9 - Obesity, unspecified, K44.9 - Diaphragmatic hernia without obstruction or gangrene UA CC w/rflx Micro + Cult 3 Months I10 - Essential (primary) hypertension, I25.10 - Atherosclerotic heart disease of [place] coronary artery without angina pectoris, E78.5 - Hyperlipidemia, unspecified, E11.69 - Type 2 diabetes mellitus with other specified complication, E11.65 - Type 2 diabetes mellitus with hyperglycemia, 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, E11.8 - Type 2 diabetes mellitus with unspecified complications, E66.9 - Obesity, unspecified, K44.9 - Diaphragmatic hernia without obstruction or gangrene Lipid Panel 3 Months I10 - Essential (primary) hypertension, I25.10 - Atherosclerotic heart disease of [place] coronary artery without angina pectoris, E78.5 - Hyperlipidemia, unspecified, E11.69 - Type 2 diabetes mellitus with other specified complication, E11.65 - Type 2 diabetes mellitus with hyperglycemia, 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, E11.8 - Type 2 diabetes mellitus with unspecified complications, E66.9 - Obesity, unspecified, K44.9 - Diaphragmatic hernia without obstruction or gangrene Complete Blood Count Auto Diff 3 Months I10 - Essential (primary) hypertension, I25.10 - Atherosclerotic heart disease of [place] coronary artery without angina pectoris, E78.5 - Hyperlipidemia, unspecified, E11.69 - Type 2 diabetes mellitus with other specified complication, E11.65 - Type 2 diabetes mellitus with hyperglycemia, Z79.4 - residential (current) use of insulin, E11.8 - Type 2 diabetes mellitus with unspecified complications, E66.9 - Obesity, unspecified, K44.9 - Diaphragmatic hernia without obstruction or gangrene TSH reflex Free T4 3 Months I10 - Essential (primary) hypertension, I25.10 - Atherosclerotic heart disease of [place] coronary artery without angina pectoris, E78.5 - Hyperlipidemia, unspecified, E11.69 - Type 2 diabetes mellitus with other specified complication, E11.65 - Type 2 diabetes mellitus with hyperglycemia, Z79.4 - residential (current) use of insulin, E11.8 - Type 2 diabetes mellitus with unspecified complications, E66.9 - Obesity, unspecified, K44.9 - Diaphragmatic hernia without obstruction or gangrene Hemoglobin A1c 3 Months I10 - Essential (primary) hypertension, I25.10 - Atherosclerotic heart disease of [place] coronary artery without angina pectoris, E78.5 - Hyperlipidemia, unspecified, E11.69 - Type 2 diabetes mellitus with other specified complication, E11.65 - Type 2 diabetes mellitus with hyperglycemia, Z79.4 - residential (current) use of insulin, E11.8 - Type 2 diabetes mellitus with unspecified complications, E66.9 - Obesity, unspecified, K44.9 - Diaphragmatic hernia without obstruction or gangrene Vitamin D 25-OH Total 3 Months I10 - Essential (primary) hypertension, I25.10 - Atherosclerotic heart disease of [place] coronary artery without angina pectoris, E78.5 - Hyperlipidemia, unspecified, E11.69 - Type 2 diabetes mellitus with other specified complication, E11.65 - Type 2 diabetes mellitus with hyperglycemia, 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
--- OUTSIDE RECORDS SUMMARY | 2025-06-17 14:12 | XMS_ITS | Clinical Summary ---
Author Organization [facility] Address [address] [place] [address] Phone Care Team Providers Care Hand Drawer In Name Role Phone Buddy Morrow MD Primary Care Provider [phone] Allergies Active Allergy Reactions Criticality Noted Date Comments Procaine 12/23/2017 Passes out Oxycodone Hives 12/23/2017 Hydrocodone-Acetaminophen Headaches 12/23/2017 Medications MULTIVITAMIN ORAL Take by mouth. Active omeprazole (PRILOSEC) 20 MG capsule Take 20 mg by mouth daily. Active CINNAMON BARK (CINNAMON ORAL) Take 1,000 mg by mouth 2 (two) times a day. Active FISH OIL/FLAX.OIL/E.SD IM/BCURR (FISH,FLAXSEED OIL-E.PRIM-BCURR ORAL) Take 1 capsule by mouth 2 (two) times a day. Active cholecalciferol (VITAMIN D3) 5,000 unit tablet Take by mouth daily. Active lisinopril (PRINIVIL,ZESTRIL ) 20 MG tablet Take 20 mg by mouth daily. Active aspirin 81 mg chewable tablet Take 81 mg by mouth daily. Active gabapentin (NEURONTIN) 600 MG tablet Take 600 mg by mouth 2 (two) times a day. Active amitriptyline (ELAVIL) 25 MG tablet Take 25 mg by mouth nightly. Active niacin 500 MG tablet Take 500 mg by mouth daily with breakfast. Active metFORMIN (GLUCOPHAGE) 500 MG tablet Take 500 mg by mouth daily with breakfast. 4 tablets Active levothyroxine (SYNTHROID, LEVOTHROID) 175 MCG tablet Take 175 mcg by mouth every morning. Active insulin glargine (LANTUS) 100 unit/mL injection vial Inject 50 Units under the skin nightly. Active exenatide (BYDUREON) 2 mg ER subcutaneous injection vial Inject 2 mg under the skin once a week. Active simvastatin (ZOCOR) 40 MG tablet Take 40 mg by mouth nightly. Active metoprolol succinate (TOPROL-XL) 100 MG 24 hr tablet Take 100 mg by mouth daily. Active b complex vitamins capsule Take 1 capsule by mouth daily. Active furosemide (LASIX) 40 MG tablet Take 40 mg by mouth. Active Active Problems Problem Noted Date Diagnosed Date Dyspnea on exertion 01/03/2018 Social History Tobacco Use Types Packs/Day Years Used Date Smoking Tobacco: Former Cigarettes Q uit: 1985 Smokeless Tobacco: Never Alcohol Use Standard Drinks/Week Comments Yes 0 (1 standard drink = 0.6 oz pur e alcohol) once a month Education Answer Date Recorded Are you interested in more education? Not on carlton e 03/25/2023 Are you concerned about learning? Not on file 03/25/2023 No 03/25/2023 No 03/25/2023 Digital Access Answer Date Recorded No 04/25/2023 No 04/25/2023 No 04/25/2023 Reliable internet access at home? Not on file 04/25/2023 Device with a working camera? Not on file Comments Unknown Sex and Gender Information Value Date Recorded Sex Assigned at Not on file Legal Sex Female 10:41 AM EST Gender Identity Not on file Sexual Orientation Not on file Last Filed Vital Signs Vital Sign Reading Time Taken Comments Blood Pressure 130/78 02/04/2020 2:27 PM EDT Pulse 59 02/04/2020 2:27 PM EDT Temperature 36.2 C (97.2 F) 01/03/2018 12:07 PM EST Respiratory Rate 12 01/03/2018 3:42 PM EST Oxygen Saturation 98% 02/04/2020 2:27 PM EDT Inhaled Oxygen Concentration - - Weight 100.2 kg (221 lb) 02/04/2020 2:27 PM EDT Height 166.4 cm (5' 5.5 ) 02/04/2020 2:27 PM EDT Body Mass Index 36.22 02/04/2020 2:27 PM EDT Plan of Treatment Health Maintenance Due Date Last Done Comments Adult Td,Tdap Booster 1948 LIPID PANEL 1948 TSH LEVEL 1948 DEPRESSION SCREENING 1960 SMOKING Hx and SMOKELESS TOB ACCO SCREENING 1961 HEPATITIS C SCREENING 1966 PNEUMOCOCCAL VACCINES (50+ y ears) (1 of 1 - PCV) 1998 ZOSTER VACCINES (1 of 2) 1998 OSTEOPOROSIS SCREENING INITI AL (ONE-TIME) 2013 CREATININE LEVEL 12/28/2018 12/28/2017 POTASSIUM LEVEL 12/28/2018 12/28/2017 RSV VACCINE (1 - 1-dose 75+ series) 2023 COVID-19 VACCINE (2 - 2023-2 5 season) 2024 02/15/2021 HEPATITIS A VACCINES Aged Out No long er eligible based on patient's age to complete this topic HIB VACCINES Aged Out No longer eligi ble based on patient's age to complete this topic MENINGOCOCCAL VACCINES (ACWY) Aged Out No longer eligible based on patient's age to complete this topic MENINGOCOCCAL VACCINES (B) Aged Out N o longer eligible based on patient's age to complete this topic Medical Devices Not on file Procedures Procedure Name Priority Date/Time Associated Diagnosis Comments BASIC METABOLIC PANEL Routine 12/28/2017 10:40 AM EST Atherosclerosis of [place] coronary artery without angina pectoris, unspecified whether [place] or transplanted heart from Last 3 Months or Most Recently Relevant to Health Maintenance Results * (ABNORMAL) Basic metabolic panel (12/28/2017 10:40 AM EST) SODIUM 140 133 - 146 mmol/L [facility] CHLORIDE 98 96 - 108 mmol/L [facility] POTASSIUM 4.4 3.3 - 5.1 mmol/L [facility] CO2 29 21 - 35 mmol/L [facility] BUN 14 6 - 19 mg/dL [facility] CREATININE 1.00 0.5 - 1.5 mg/dL [facility] GLUCOSE 133(H) 70 - 99 mg/dL [facility] CALCIUM 9.0 8.4 - 10.3 mg/dL [facility] EGFR 55(L) 60 - 1,000 mL/min/1.7 3m2 [facility] Comment:Abnormal if <60. If patient is -[place]un[place], multiply the result by 1.21. ANION GAP 17 10 - 20 mmol/L [facility] Blood 12/28/2017 10:4 0 AM EST 12/28/2017 10:46 AM EST us Anmol John DO LAB BLOOD ORDERABLES Final Re sult [facility] Organization Address City/State/ZIP Co de Phone Number [facility] [address] [place] [address] from Last 3 Months or Most Recently Relevant to Health Maintenance [place] [address] MEDICARE PART A & B Member Subscriber Plan / Payer (Ef fective 2013-Present) Name:Miriam Nogueira Member ID:[id number] Relation to Subscriber:Self Name:Miriam Nogueira Subscriber ID:[id number] Payer ID:[id number] Group ID:Not on file Type:Medicare Address: [facility] [employer] [facility] [address] [facility] [place] [address] [facility] [place] [address] [place] [address] MEDICARE PART A & B Member Subscriber Plan / Payer (Ef fective 2013-Present) Name:Miriam Nogueira Member ID:[id number] Relation to Subscriber:Self Name:Miriam Nogueira Subscriber ID:[id number] Payer ID:[id number] Group ID:Not on file Type:Medicare Address: [employer] [address] [place] [id number] [facility] [place] [address] [address] [place], [place] [address] MEDICARE PART A & B Member Subscriber Plan / Payer (Ef fective 2013-Present) Name:Miriam Nogueira Member ID:[id number] Relation to Subscriber:Self Name:Miriam Nogueira Subscriber ID:[id number] Payer ID:[id number] Group ID:Not on file Type:Medicare Address: [employer] [address] [facility] [place] [address] MEDICARE PART A & B [facility] Address: [facility] OFFICE OF COMMUNITY CARE ATTN:[facility] [address] [address] [place] [address] MEDICARE PART A & B [facility] [place] [address] MEDICARE PART A & B [facility] [place] [address] MEDICARE PART A & B [facility] [place] [address] MEDICARE PART A & B [facility] [place] [address] MEDICARE PART A & B [facility] Address: [facility] OFFICE OF [facility] CARE ATTN:[facility] CLAIMS [address] [address] [place] [address] Advance Directives For more information, please contact: [phone] (9AM - 5PM [facility], Tuesday-Tuesday) * Full Code (Confirmed) (Latest Code Status on File) Date Activated Date Inactivated Comments 01/03/2018 11:38 AM 01/03/2018 5:47 PM Question Answer Comments Code Discussion Comments: Dr John Care Teams Hand Drawer In Relationship Specialty Start Date End Date Buddy Morrow MD [address] [place] [address] [place] [address] PCP - General Internal Medicine 12/28/17 Additional Source Comments The information contained in this document represents components of the legal health record. It is not the complete legal health record.[facility]
--- OUTSIDE RECORDS SUMMARY | 2025-06-17 14:12 | XMS_ITS | Clinical Summary ---
Author Organization [facility] Address [address] [place] [address] Phone Care Team Providers Care Maritime Guard Name Role Phone Chang Diaz Poonam OPERATOR RECEPTIONIST Primary Care Provider [phone] Allergies Active Allergy Reactions Criticality Noted Date [...] Additional Information Patient not taking.Reported on 03/26/2025 Active Problems Problem Noted Date Diagnosed Date DM2 (diabetes mellitus, type 2) ([facility] V24, [facility] /[facility] V28) HTN (hypertension) Hypercholesterolemia Hypothyroid Resolved Problems Problem Noted Date Diagnosed Date Resolved Date Endometrial cancer ([facility] V24, [facility] V28) 03/05/20 25 03/11/2025 Encounters Date Type Department Care Team Description 05/21/2025 4:00 PM EDT Office Visit Breast Care [facility] [address] [facility] [address] [place] [address] Bessy Londono MD Endometrial cancer ([facility] V24, [facility] V28) (Primary Dx); Groin swelling; Localized swelling of left lower extremity; Postop check 03/26/2025 11:58 AM EDT - 03/26/2025 11:59 PM EDT Hospital Encounter [facility] Ultrasound [address] [place] [id number] Groin swelling; Localized swelling, mass and lump, left upper limb Discharge Disposition: Home or Self Care 03/26/2025 11:40 AM EDT Office Visit Breast Care [facility] [address] [facility] [address] [place] [phone] Bessy Londono MD Endometrial cancer ([facility] V24, [facility] V28) (Primary Dx); Groin swelling; Localized swelling of left lower extremity; Postop check from Last 3 Months Surgical History Surgery [...] atherosclerosis of unspecified type of vessel, little shell tribe or graft 07/25/2012 HTN (hypertension) 07/25/2012 Hypercholesterolemia 07/25/2012 DM2 (diabetes mellitus, type 2) ([facility]/H[facility] V24, CM S/[facility] V28) 07/25/2012 Hypothyroid 07/25/2012 Esophageal dysmotility Paraesophageal [...] Sign Reading Time Taken Comments Blood Pressure 147/97 05/21/2025 4:05 PM EDT Pulse 67 05/21/2025 4:05 PM EDT Temperature 36.2 C (97.2 F) 05/21/2025 4:05 PM EDT Respiratory Rate 20 03/11/2025 6:39 PM EDT Oxygen Saturation 100% 03/11/2025 6:39 PM EDT Inhaled Oxygen Concentration - - Weight 91.6 kg (202 lb) 05/21/2025 4:05 PM EDT Height 162.6 cm (5' 4 ) 03/05/2025 2:22 PM EDT Body Mass Index 34.67 03/05/2025 2:22 PM EDT Plan of Treatment Upcoming Encounters Date Type Department Care Team (Late st Contact Info) Description 11/12/2025 1:00 PM EST Office Visit [facility] [address] [facility] [address] [place] [phone] Bessy Londono MD [address] [place] [address] Health Maintenance Due Date Last Done Comments Diabetes: Annual Foot Exam 1958 Diabetes: Annual Retina Eye Exam 1960 Zoster Vaccines (1 of 2) 1967 Pneumococcal Vaccine: 50+ Years (2 of 2 - PCV) 10/13/2016 10/13/2015 Cholesterol Screening (Lipid Panel) 06/26/2024 Diabetes: Annual Urine Albumin-Creatinine Ratio (uACR) 06/26/2024 Diabetes: Blood Sugar Control Test (HGBA1C) 06/26/2024 Hepatitis C Screening 06/26/2024 Medicare Annual Wellness Visit 06/26/2024 Osteoporosis Screening (Bone Density Screening) 06/26/2024 Social Influencers of Health Screening 06/26/2024 Depression Screening 11/28/2024 COVID-19 Vaccine (7 - Moderna risk season) 2025 09/07/2024, 02/22/2024, 09/25/2022, Additional history exists Influenza Vaccine (#1) 2025 , 09/20/2023, 09/25/2022, Additional history exists Diabetes: Annual GFR (Glomerular Filtration Rate) 03/08/2026 03/08/2025 Hypertension/CHF/CAD Annual BMP Blood Test 03/08/2026 03/08/2025 Falls Risk Assessment 03/11/2026 03/11/2025 DTaP,Tdap,and Td Vaccines (2 - Td or Tdap) 05/17/2035 05/17/2025 RSV Immunization Adult Patients Completed 05/17/2025 HIB Vaccines Aged Out No longer eligi [...] swelling, mass and lump, left upper limb BASIC METABOLIC PANEL Routine 03/08/2025 11:06 AM EDT Endometrial cancer (CMS/HCC V24, CMS/HCC V28) from Last 3 Months or Most Recently Relevant to Health Maintenance Results * Vascular US duplex lower extremity [...] Signed Date: 03/26/2025 12:19 ET Workstation ID: [id number] Transcribed By: Self Edit Transcribed Date: 03/26/2025 [...] No focal fluid collection. Procedure Note Kamilah Shen MD - 03/26/2025 Ultrasound venous duplex left [...] Signed Date: 03/26/2025 12:19 ET Workstation ID: [id number] Transcribed By: Self Edit Transcribed Date: 03/26/2025 12:19 ET us Bessy Londono MD CV VASCULAR PROCEDURES Final Res ult * (ABNORMAL) Basic metabolic panel (03/08/2025 11:06 AM EDT) Sodium 139 133 - 145 mmol/L LAB CHEMISTRY METHOD 03/08/2025 11:58 AM EDT [facility] Potassium 3.3(L) 3.5 - 5.5 mmol/L LAB CHEMISTRY METHOD 03/08/2025 11:58 AM EDT [facility] Chloride 104 96 - 110 mmol/L LAB CHEMISTRY METHOD 03/08/2025 11:58 AM [facility] CO2 27 21 - 32 mmol/L LAB CHEMISTRY METHOD 03/08/2025 11:58 AM [facility] Anion Gap 8 3 - 11 LAB CHEMISTRY METHOD 03/08/2025 11:58 AM [facility] Glucose 196(H) 70 - 100 mg/dL LAB CHEMISTRY METHOD 03/08/2025 11:58 AM [facility] BUN 10 5 - 25 mg/dL LAB CHEMISTRY METHOD 03/08/2025 11:58 AM [facility] Creatinine 1.06 0.50 - 1.10 mg/dL LAB CHEMISTRY METHOD 03/08/2025 11:58 AM [facility] eGFR 55(L) >=60 mL/min/1. 73m2 LAB CHEMISTRY METHOD 03/08/2025 11:58 AM [facility] Comment:Calculation based on the Chronic Kidney Disease Epidemiology Collaboration (CKD-EPI) equation refit without adjustment for race. BUN/Creatinine Ratio 9.4 LAB CHEMISTRY METHOD 03/08/2025 11:58 AM [facility] Calcium 9.3 8.5 - 10.5 mg/dL LAB CHEMISTRY METHOD 03/08/2025 11:58 AM [facility] Blood Venous blood specimen / Unknown Venipuncture / Unknown 03/08/2025 11:06 AM EDT 03/08/2025 11:25 AM EDT us Bessy Londono MD LAB BLOOD ORDERABLES Final Resul t [facility] [address] [place] [address], from Last 3 Months or Most Recently Relevant to Health Maintenance Insurance [employer] MEDICARE [facility] Advance Directives Documents on File Type Date Recorded Patient Property Appraiser Expl anation Power of Car Usher 03/11/2025 12:58 PM HCP Power of Car Usher 03/11/2025 12:47 PM HEAL TH CARE PROXY(NOT SIGNED) Care Teams Maritime Guard Relationship Specialty Start Date End Date Chang Diaz FNP [address] [place] [phone] PCP - General Family Medicine 05/21/25
--- OUTSIDE RECORDS SUMMARY | 2025-06-17 14:12 | XMS_ITS | Patient Health Record ---
Author Organization [facility] Address [address], [place] [address] Care Team Providers Care Powder Truck Driver Name Role Phone Chang Diaz Primary Care Provider Benjamin West Unavailable [phone] Allergies Allergen (clinical drug ingredient) Drug/Non Drug [...] (HH) 7.2 HEMOGLOBIN A1C (GLYCOHEMOGLO BIN) Reviewed date:04/23/2025 01:32:10 PM Interpretation: Performing Lab: Notes/Report: HEMOGLOBIN A1C % (HH) 8.6 Reason For Referral No Information Medications Medication SIG (Take, Route, Frequency, Duration) Notes Start Date End Date Status Metoprolol Tartrate 50mg 1x a day Active Aspirin 81mg Active Naproxen 500mg prn PRN Activ e Jardiance Not-Taking Fish Oil Active Turmeric Curcumin Ac tive Gabapentin Active Vitamin D3 Active Bydureon Active Niacin Active Cinnamon Active Simvastatin 40mg daily Act gila Lopressor Active Lantus 25 units Subcutaneous Not-Taking Pantoprazole Sodium 40 MG 1 tablet Orally Once a day Active Metoclopramide HCl PRN A ctive Lisinopril 10 MG 1 tablet Orally Once a day; Duration: 30 day(s) Not-Taking Lasix PRN Active Extra Depth Orthopedic Shoes (1 Pair) with Customized Heat Molded Multidensity Innersoles (3 Pair) as directed Dx: IDDM/Polyneuropathy (E10.42), Hammertoe Foot Deformity (M20.41,M20.42), Preulcerative Skin Lesion(s) (L85.1) 06/26/2024 Active Levothyroxine Sodium 150 MCG 0.5 tablet every morning on an empty stomach Orally Once a day Active Omeprazole Not-Takin g Senokot Active metFORMIN HCl Active Amitriptyline HCl 25mg daily Active Immunizations Vaccine Route Administration Date Status Comme nts Influenza Unknown 11/15/2017 Administered Influenza Unknown 11/03/2018 Administered Influenza Unknown 09/03/2022 Administered Influenza Unknown 09/20/2023 Administered Pneumococcal Unknown 10/13/2015 Administered COVID-19 Moderna Vaccine Unknown 09/03/2022 Administere [...] Problem Status W/U Status Risk Notes Problem Other hammer toe(s) (acquired), right foot (M20.41) Active confirmed Response to treatment, Improvemen t Problem Acquired hammer toe of left foot ([id number] ) Other hammer toe(s) (acquired), left foot (M20.42) Active confirmed Response to treatment, Improvemen t Problem Polyneuropathy due to diabetes mellitus type I (284158483) 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 confirmed Vital Signs Blood pressure diastolic 65 mm Hg 04/23/2025 Height 5ft4in in 04/23/2025 Blood pressure systolic 130 mm Hg 04/23/2025 Weight 200 lbs 04/23/2025 BMI 34.33 kg/m2 04/23/2025 Procedures Procedure Date Ordered Date Performed Result Body Sit e 64455-ORSPCWG NAIL, 6 OR MORE 06/26/2024 N/A 82166-RGLJ SKIN LESIONS, OVER 4 06/26/2024 N/A 01828-PIOAHYM NAIL, 6 OR MORE 10/09/2024 N/A 92775-WXRD SKIN LESIONS, OVER 4 10/09/2024 N/A 07161-RXPDBGQ NAIL, 6 OR MORE 01/15/2025 N/A 71586-GSFE SKIN LESIONS, OVER 4 01/15/2025 N/A 49341-KFRSFQF NAIL, 6 OR MORE 04/23/2025 N/A 51342-UFHR SKIN LESIONS, OVER 4 04/23/2025 N/A Encounters Encounter Location Date Provider Diagnosis [address] [address] 06/26/2024 Benjamin Leti Type 1 diabetes mellitus with diabetic polyneuropathy E10.42 ; Tinea unguium B35.1 ; Other hammer toe(s) (acquired), right foot M20.41 and Other hammer toe(s) (acquired), left foot M20.[address] [address] 10/09/2024 Benjamin Leti Type 1 diabetes mellitus with diabetic polyneuropathy E10.42 and Tinea unguium B35.[address] [address] 01/15/2025 Benjamin Leti Type 1 diabetes mellitus with diabetic polyneuropathy E10.42 ; Other hammer toe(s) (acquired), right foot M20.41 ; Tinea unguium B35.1 and Other hammer toe(s) (acquired), left foot M20.[address] [address] 04/23/2025 Benjamin Leti Type 1 diabetes mellitus with [...] mellitus with diabetic polyneuropathy (ICD-10 - E10.42) 04/23/2025 Type 1 diabetes mellitus with diabetic polyneuropathy (ICD-10 - E10.42) 04/23/2025 Tinea unguium (ICD-10 - B35.1) 01/15/2025 Tinea unguium (ICD-10 - B35.1) 06/26/2024 [...] 02/11/2015 Hemoglobin A1c 12/02/2015 Hemoglobin A1c 06/03/2017 74106-PSPHFXQ NAIL, 6 OR MORE 04/23/2025 91728-BKWRGWV NAIL, 6 OR MORE 10/09/2024 09562-SSVRUXD NAIL, 6 OR MORE 01/15/2025 23954-NBPTBBU NAIL, 6 OR MORE 09/12/2020 88077-XLFEQUP NAIL, 6 OR MORE 12/12/2020 75181-DWEZCQH NAIL, 6 OR MORE 03/13/2021 81373-JICJKQZ NAIL, 6 OR MORE 06/12/2021 92264-FWJGEEB NAIL, 6 OR MORE 09/18/2021 34529-QVBDHBY NAIL, 6 OR MORE 12/18/2021 07494-HABULUS NAIL, 6 OR MORE 03/23/2022 98318-SOPMXMQ NAIL, 6 OR MORE 06/25/2022 35455-SDXRKEC NAIL, 6 OR MORE 09/24/2022 93587-BJRFYBW NAIL, 6 OR MORE 12/24/2022 46588-CSLMCXZ NAIL, 6 OR MORE 03/25/2023 49411-YPBXXTC NAIL, 6 OR MORE 06/24/2023 96450-YPCUALH NAIL, 6 OR MORE 09/27/2023 42939-QYPZLYV NAIL, 6 OR MORE 12/27/2023 35307-KTVRHPJ NAIL, 6 OR MORE 03/27/2024 99979-JSWYVTJ NAIL, 6 OR MORE 06/26/2024 78780-YCIFRQS NAIL, 6 OR MORE 08/22/2015 83552-WFPLNLV NAIL, 6 OR MORE 05/16/2015 36703-LGEMSCW NAIL, 6 OR MORE 02/11/2015 90328-HBWIRZL NAIL, 6 OR MORE 11/02/2013 48623-QWCAVOI NAIL, 6 OR MORE 02/01/2014 13816-AMESMNC NAIL, 6 OR MORE 05/10/2014 09166-DUENEKK NAIL, 6 OR MORE 08/13/2014 78912-WCZJGRH NAIL, 6 OR MORE 11/12/2014 01295-JDPXRNY NAIL, 6 OR MORE 07/27/2011 82681-TAFOPUO NAIL, 6 OR MORE 10/15/2011 66453-PVBXZND NAIL, 6 OR MORE 01/14/2012 73583-WKEEYKA NAIL, 6 OR MORE 04/11/2012 28546-DYHDSAK NAIL, 6 OR MORE 07/28/2012 89685-QOFXROM NAIL, 6 OR MORE 10/13/2012 82725-COEBXCK NAIL, 6 OR MORE 01/12/2013 65403-FOLJAXP NAIL, 6 OR MORE 04/13/2013 92361-IRJEKGY NAIL, 6 OR MORE 08/03/2013 77615-LTERKTV NAIL, 6 OR MORE 12/02/2015 45801-ZYTURQI NAIL, 6 OR MORE 03/02/2016 60982-YFYNZDV NAIL, 6 OR MORE 06/11/2016 72843-TGQAREU NAIL, 6 OR MORE 09/10/2016 79299-FQFUPZE NAIL, 6 OR MORE 12/10/2016 51571-TIFRWEL NAIL, 6 OR MORE 03/04/2017 04033-HGFGZPB NAIL, 6 OR MORE 06/07/2017 07796-BWDDELK NAIL, 6 OR MORE 09/06/2017 68672-WPNKOHN NAIL, 6 OR MORE 12/09/2017 36816-NLAOXZN NAIL, 6 OR MORE 03/10/2018 06166-BBMIAIY NAIL, 6 OR MORE 06/13/2018 96985-YSZBJNS NAIL, 6 OR MORE 09/12/2018 92207-VXHYQOB NAIL, 6 OR MORE 12/26/2018 20142-DUWHVGL NAIL, 6 OR MORE 03/27/2019 03893-PZFTZYF NAIL, 6 OR MORE 06/26/2019 74258-JHJTKRC NAIL, 6 OR MORE 09/25/2019 81978-VIAPLLR NAIL, 6 OR MORE 12/25/2019 23406-IEKDNVC NAIL, 6 OR MORE 06/13/2020 76727- Debride <25 sq cm 08/03/2013 61618-NSJA SKIN LESIONS, OVER 4 11/02/20 13 84488-QEOI SKIN LESIONS, OVER 4 11/12/20 14 10038-TDID SKIN LESIONS, OVER 4 08/13/20 14 10219-RMZB SKIN LESIONS, OVER 4 05/10/20 14 52687-IZXQ SKIN LESIONS, OVER 4 02/02/20 14 55971-JIGF SKIN LESIONS, OVER 4 02/12/20 15 28894-BEVX SKIN LESIONS, OVER 4 05/16/20 15 86979-SSPM SKIN LESIONS, OVER 4 08/22/20 15 23125-HTOR SKIN LESIONS, OVER 4 12/02/19 16 71107-VWNE SKIN LESIONS, OVER 4 06/13/20 20 74009-LQNN SKIN LESIONS, OVER 4 12/25/19 20 15227-DWJM SKIN LESIONS, OVER 4 09/25/20 19 98980-BXDD SKIN LESIONS, OVER 4 06/26/20 19 44777-PFNY SKIN LESIONS, OVER 4 03/27/20 19 69599-UVNH SKIN LESIONS, OVER 4 12/26/19 19 21349-GFNK SKIN LESIONS, OVER 4 09/12/20 18 16177-DUIB SKIN LESIONS, OVER 4 06/13/20 18 91187-ZIAV SKIN LESIONS, OVER 4 03/10/20 18 63430-QCVR SKIN LESIONS, OVER 4 12/09/19 18 91124-MOKZ SKIN LESIONS, OVER 4 09/06/20 17 68258-IXNY SKIN LESIONS, OVER 4 03/04/20 17 50251-HBKH SKIN LESIONS, OVER 4 06/07/20 17 83827-NFGO SKIN LESIONS, OVER 4 12/10/19 17 75488-FEKA SKIN LESIONS, OVER 4 09/10/20 16 38585-QEHG SKIN LESIONS, OVER 4 06/11/20 16 42541-PNRG SKIN LESIONS, OVER 4 03/02/20 16 16941-PVRP SKIN LESIONS, OVER 4 06/26/20 24 06594-BTZT SKIN LESIONS, OVER 4 03/27/20 24 70905-QRSO SKIN LESIONS, OVER 4 12/27/19 24 58310-IVFG SKIN LESIONS, OVER 4 09/27/20 23 46096-QHUF SKIN LESIONS, OVER 4 06/24/20 23 97533-NEFA SKIN LESIONS, OVER 4 03/25/20 39454-SUDF SKIN LESIONS, OVER 4 12/24/19 23 87093-YMYQ SKIN LESIONS, OVER 4 09/24/20 90451-WYHV SKIN LESIONS, OVER 4 06/25/20 58262-ZSVA SKIN LESIONS, OVER 4 03/23/20 98786-MOUF SKIN LESIONS, OVER 4 12/18/19 17494-UCQW SKIN LESIONS, OVER 4 09/18/20 21 07590-ONIA SKIN LESIONS, OVER 4 06/12/20 21 67129-ZFLL SKIN LESIONS, OVER 4 03/13/20 21 65046-GTTT SKIN LESIONS, OVER 4 12/12/19 21 77983-IBEQ SKIN LESIONS, OVER 4 09/12/20 20 45967-AOQI SKIN LESIONS, OVER 4 01/15/20 25 30837-ICKL SKIN LESIONS, OVER 4 10/09/20 24 08945-GCUG SKIN LESIONS, OVER 4 04/23/20 25 40970-LJGN SKIN LESIONS, 2 TO 4 07/27/20 11 43400-TQJS SKIN LESIONS, 2 TO 4 04/13/20 13 08503-ZGBX SKIN LESIONS, 2 TO 4 01/12/20 13 14396-BEIU SKIN LESIONS, 2 TO 4 10/13/20 12 63697-VIDL SKIN LESIONS, 2 TO 4 07/28/20 12 17056-TNAL SKIN LESIONS, 2 TO 4 04/11/20 12 79710-EAYY SKIN LESIONS, 2 TO 4 01/14/20 12 84755-XRAB SKIN LESIONS, 2 TO 4 10/15/20 11 HEMOGLOBIN A1C (GLYCOHEMOGLOBIN) 020 Next Appt Details Provider Name:Benjamin Landeros , 07/30/2025 02:30:00 PM, [address] [place], [address], Insurance Providers Payer Name Payer Address Payer Phone Subscriber Number Group Number Insured Name Patient Relationship to Insured Coverage Start Date Coverage End Date [employer] Medicare Adv-[id number] [address] [address] [place] [address] [id number] Miriam Henry Self - patient is the insured [facility] Claims [facility] Office of Community [facility] [address] [address] [place] [address] [id number] Miriam Henry Self - patient is the [...] cuff tear repair 04/26/2019 hiatal hernia repair 5 Cataract surgery 04/30/24 Esophageal recon 2023 Hospitalization History Reason Date(Month/Year) [facility] virus 11/21/2017 [facility], esophagus surgery 05/17/24 [facility] Hern[facility] flare up 02/27/2021 [facility]- Hiatal hernia flare up 05/21/19
== END 2025-06-17 13:54 | disposition home or self-care (01) ==
LOC: HO.HMCH 13:28
DX: R79.89 Other specified abnormal findings of blood chemistry (principal); E11.42 Type 2 diabetes mellitus with diabetic polyneuropathy; E11.65 Type 2 diabetes mellitus with hyperglycemia; I10 Essential (primary) hypertension; I25.10 Atherosclerotic heart disease of native coronary artery without angina pectoris; E66.9 Obesity, unspecified; E11.8 Type 2 diabetes mellitus with unspecified complications; E03.9 Hypothyroidism, unspecified; I44.0 Atrioventricular block, first degree

== ENCOUNTER → 2025-06-17 13:28 | Outpatient (BNVA) | payer MEDICARE, OTHER, SELFPAY | DX: R79.89 Other specified abnormal findings of blood chemistry (principal); E11.9 Type 2 diabetes mellitus without complications; I10 Essential (primary) hypertension; I25.10 Atherosclerotic heart disease of native coronary artery without angina pectoris; E11.42 Type 2 diabetes mellitus with diabetic polyneuropathy; E11.65 Type 2 diabetes mellitus with hyperglycemia; E66.9 Obesity, unspecified; E03.9 Hypothyroidism, unspecified; I44.0 Atrioventricular block, first degree | CPT/HCPCS: 99212 ==

== ENCOUNTER 2025-08-13 13:24 | Outpatient (AMB) | payer MEDICARE, OTHER, SELFPAY ==
--- NOTE | 2025-08-13 13:29 | A.OFFPC_ITS ---
Vital Signs 08/13/25 13:30 Height 5 ft 4 in Intake Visit Reasons: SAWV - see comments Allergies hydrocodone (From VICODIN) Allergy (Unknown, Verified 06/17/25 13:40) HEADACHE oxycodone (OXYCODONE) Allergy (Unknown, Verified 06/17/25 13:40) HIVES procaine (From NOVOCAIN) Allergy (Unknown, Verified 06/17/25 13:40) FAINTED Tobacco use date assessed: 06/17/25 Dental Screening Dental Screen Date: 06/17/25 [facility] Medical History Tubular adenoma of colon Incontinence Hx of esophageal ulcer (~04/2024) Dysphagia Hypoglycemia unawareness associated with type 2 diabetes mellitus Hyperlipidemia associated with type 2 diabetes mellitus Obesity Post-menopausal Screening for breast cancer Dizziness Pre-op exam Hiatal hernia (~04/2024) IDDM (insulin dependent diabetes mellitus) Pre-op exam Diabetic polyneuropathy associated with type 2 diabetes mellitus Obesity (BMI 30-39.9) Hypertension Hypothyroidism 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 Diabetes type 2, uncontrolled Surgical History History of hysterectomy History of abdominal paracentesis History of esophagogastroduodenoscopy (EGD) History of colonoscopy History of repair of hiatal hernia History of cardiac catheterization Hx of hammer toe correction Hx of shoulder surgery Hx of tonsillectomy Hx laparoscopic cholecystectomy Hx of appendectomy Family History Brother Diabetes Father Lung cancer Mother HTN (hypertension) Social History Household Members: Family Housing: House Are you a primary home care manager to a significant other at home: No Do you presently have visiting nurse or other home services: No Alcohol intake: current Alcohol intake frequency: holidays/special occasions only Patient Tobacco Use Status: Former Tobacco user Tobacco use type: Cigarette Years Smoked: 20 e-Cigarette/Vaping Use: Never Used Second Hand Smoke Exposure: Yes service: No Current occupational status: retired Cognitive needs: No Hearing needs: No Vision needs: Yes (Glasses) Questionnaire Thrive Questionnaire Date Thrive assessed: 06/17/25 I am a: Patient What is your living situation today?: I have a steady place to live Within the past 12 months, did the food you bought not last and you didn't have the money to get more?: Never true Within the past 12 months, did you worry whether your food would run out before you got money to buy more?: Never true Do you have trouble paying for medicines?: No Do you have trouble getting transportation to medical appointments?: No Do you have trouble paying your heating and electricity bill?: No Do you have trouble taking care of your child, family member or friend?: No Do you have trouble with day-to-day activities such as bathing, preparing meals, shopping, managing finances, etc.?: No Are you currently unemployed and looking for a job?: No Are you interested in more education?: No Please select the resources that you would like help with: None Currently or been in a relationship where the following occur: No concerns reported THRIVE Score: 0 GHAZAL-7 AMB Questionnaire GHAZAL-7 Date GHAZAL - 7 assessed: 12/18/24 Source: Developed by Drs. Hugh Sanon, Kajal Fuentes, Sam Padgett and colleagues, with an educational melissa from [employer]. Physical exam (Primary Care) Tobacco/Smoking Status: Tobacco use Status Tobacco use date assessed 06/17/25 06/17/25 13:37 Patient Tobacco Use Status Former Tobacco user 06/17/25 13:37 Tobacco use type Cigarette 06/17/25 13:37 e-Cigarette/Vaping Use Never Used 06/17/25 13:37 Thrive Assessment: Date of Thrive Assessment Date Thrive assessed 06/17/25 08/07/25 13:32 Currently or been in a relationship where the following occur: No concerns reported Coding
[2025-08-13 13:30] VITALS: BP 110/68; PULSE 82; TEMP 36.1; O2SAT 98; BMI 31.7
--- NOTE | 2025-08-13 13:34 | A.OFFVIS_ITS ---
Intake Vital Signs 08/13/25 13:30 08/13/25 13:39 Height 5 ft 4 in Weight 184 lb 8 oz BMI 31.7 31.7 BP 110/68 Blood Pressure Location Lt brachial Position Sitting Pulse 82 Pulse Source Pulse Oximeter Temp 97.0 F Temp Source Temporal Artery Scan Pulse Oximetry (%) 98 Oxygen Delivery Method Room Air Intake Visit Reasons: SAWV - see comments Allergies hydrocodone (From VICODIN) Allergy (Unknown, Verified 08/13/25 13:34) HEADACHE oxycodone (OXYCODONE) Allergy (Unknown, Verified 08/13/25 13:34) HIVES procaine (From NOVOCAIN) Allergy (Unknown, Verified 08/13/25 13:34) FAINTED Medication List - Last Reconciled 08/13/25 by Rosanne Villeda MD amitriptyline 25 mg PO DAILY aspirin 81 mg PO DAILY bisacodyl (Dulcolax (bisacodyl)) 10 mg (2 x 5 mg) PO BEDTIME calcium carbonate (Tums) 200 mg PO BID cholecalciferol (vitamin D3) 25 mcg PO DAILY cinnamon bark (Cinnamon) 1,000 mg PO BID esomeprazole magnesium (Nexium) 40 mg PO DAILY fish,bora,flax oils-om3,6,9no1 1,200 mg caps PO gabapentin 600 mg PO DAILY levothyroxine 112 mcg PO DAILY losartan 25 mg PO DAILY metformin 1,000 mg PO BID metoprolol tartrate 12.5 mg (1/2 x 25 mg) PO BID mirabegron ER (Myrbetriq) 25 mg PO DAILY multivitamin 1 tab PO DAILY niacin 50 mg PO BEDTIME semaglutide (Ozempic) 0.25 mg (0.368 mL) subcut QWEEK simvastatin 40 mg PO BEDTIME 90 days HPI SAWV - see comments HPI Details [place] of care: Hematology-Oncology [place] [facility], urology [facility], gynecology Dr. Valerie Morris, gastroenterology [facility] cardiology [facility], [facility], [facility] Medical History (Updated 08/13/25 @ 14:32 by Rosanne Villeda MD) Urinary incontinence UTI symptoms Obesity Elevated TSH Diabetes mellitus with coincident hypertension Hypoglycemia unawareness associated with type 2 diabetes mellitus Type 2 diabetes mellitus with unspecified complications correction (current) use of insulin Tubular adenoma of colon Hx of esophageal ulcer (~04/2024) Dysphagia Hyperlipidemia associated with type 2 diabetes mellitus Post-menopausal Screening for breast cancer Dizziness Pre-op exam Hiatal hernia (~04/2024) IDDM (insulin dependent diabetes mellitus) Pre-op exam Diabetic polyneuropathy associated with type 2 diabetes mellitus Obesity (BMI 30-39.9) Hypertension Hypothyroidism 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 Surgical History History of hysterectomy History of abdominal paracentesis History of esophagogastroduodenoscopy (EGD) History of colonoscopy History of repair of hiatal hernia History of cardiac catheterization Hx of hammer toe correction Hx of shoulder surgery Hx of tonsillectomy Hx laparoscopic cholecystectomy Hx of appendectomy Family History Brother Diabetes Father Lung cancer Mother HTN (hypertension) Social History (Updated 08/13/25 @ 14:20 by Rosanne Villeda MD) Household Members: Family Housing: House Are you a primary acute care certified nursing assistant to a significant other at home: No Do you presently have visiting nurse or other home services: No Alcohol intake: current Alcohol intake frequency: holidays/special occasions only Comment: once q 6 months 1 drink Patient Tobacco Use Status: Former Tobacco user Tobacco use type: Cigarette Years Smoked: 20 quit 1986 e-Cigarette/Vaping Use: Never Used Second Hand Smoke Exposure: Yes service: No Current occupational status: retired Cognitive needs: No Hearing needs: No Vision needs: Yes (Glasses) Questionnaire Medicare Wellness Checkup What is your age?: 80 or older What gender do you identify with?: female During the past 4 weeks, how much have you been bothered by emotional problems such as feeling anxious, depressed, irritable, sad or downhearted, and blue?: not at all During the past 4 weeks, has your physical & emotional health limited your social activities with family, friends, neighbors, or groups?: not at all During the past 4 weeks, how much bodily pain have you generally had?: no pain During the past 4 weeks, was someone available to help you if you needed & wanted help?: yes, as much as I wanted During the past 4 weeks, what was the hardest physical activity you could do for at least 2 minutes?: moderate Can you get to places out of walking distance without help? (For eg., can you travel alone on buses, taxis or drive your car?): Yes Can you go shopping for groceries or clothes without someone's help?: Yes Can you prepare your own meals?: Yes Can you do your housework without help?: Yes Because of any health problems, do you need the help of another person with your personal care needs such as eating, bathing, dressing or getting around the house?: No Can you handle your own money without help?: Yes During the past 4 weeks, how would you rate your health in general?: very good During the past 4 weeks how have things been going for you?: pretty well Are you having difficulties driving your car?: not applicable, I don't use a car Do you always fasten your seat belt when you are in a car?: yes, usually During past 4 weeks, have you been bothered by the following: never: Falling or dizzy when standing up, Sexual problems?, Teeth or denture problems?, Problems using the telephone? and Tiredness or fatigue? and sometimes: Trouble eating well? Have you fallen 2 or more times in the past year?: No Are you afraid of falling?: No Are you a smoker?: no During the past 4 weeks, how many drinks of wine, beer, or other alcoholic be verages did you have?: no alcohol at all Do you exercise for about 20 minutes 3 or more times a week?: no, I usually do not exercise this much Have you been given information to help with the following?: yes: Hazards in your house that might hurt you? and yes: Keeping track of your medications? How often do you have trouble taking medicines the way you have been told to take them?: I always take medicine as prescribed How confident are you that you can control & manage most of your health problems?: very confident What is your race?: White PHQ-9 Over the last 2 weeks, how often have you been bothered by any of the following problems? 1. Little interest or pleasure in doing things: not at all 2. Feeling down, depressed, or hopeless: not at all 3. Trouble falling or staying asleep, or sleeping too much: not at all 4. Feeling tired or having little energy: not at all 5. Poor appetite or overeating: not at all 6. Feeling bad about yourself - or that you are a failure or have let yourself or your family down: not at all 7. Trouble concentrating on things, such as reading the newspaper or watching television: not at all 8. Moving or speaking so slowly that other people could have noticed. Or the opposite - being so fidgety or restless that you have been moving around a lot more than usual: not at all 9. Thoughts that you would be better off or of hurting yourself in some way: not at all Total score: 0 Depression Screening Interpretation: Negative Depression Screening Done: Yes 10637 - PHQ-9 Billing: Yes Source: Developed by Drs. Hugh Sanon, Kajal Fuentes, Sam Padgtet and colleagues, with an educational melissa from [employer]. Review of Systems Const Denies poor appetite and Denies weakness Eyes Denies no additional complaints ENT Reports Normal hearing present, Denies dizziness, Denies nasal congestion, Denies tinnitus and Denies sore throat Card Denies chest pain, Denies syncope, Denies rapid heart rate and Denies dyspnea Resp Denies cough and Denies dyspnea GI Denies change in stool character, Reports constipation, Denies diarrhea, Denies nausea and Denies vomiting Denies urinary frequency, Denies difficulty voiding and Denies dysuria Neuro Reports Normal hearing present, Denies confusion, Denies dizziness, Denies syncope and Denies weakness Psych Denies confusion Physical Exam Vital Signs: Last Vital Signs Temp 97.0 F 08/13/25 13:30 Pulse 82 08/13/25 13:30 BP 110/68 08/13/25 13:30 Pulse Ox 98 08/13/25 13:30 Oxygen Delivery Method Room Air 08/13/25 13:30 BMI result Body Mass Index 31.7 Const General: alert and awake; No confusion Orientation/consciousness: No confusion HEENT Head: Yes normocephalic Ears: external ears normal and TM's normal bilaterally Face and sinus: Yes normal facial exam Mouth: moist mucous membranes Throat: Yes tonsils normal Eyes Conjunctivae: conjunctivae normal Pupils: Equal, round and reactive pupils present and Pupil accommodation reflex normal Direct Ophthalmoscopy: normal light reflex Neck Neck: No lymphadenopathy Thyroid: Thyroid normal Chest Chest palpation & inspection: normal inspection of the chest Resp Effort & Inspection: normal respiratory effort and no audible wheezes Auscultation: clear to auscultation bilaterally, no crackles, no wheezes and lung sounds not diminished Cardio Rate: regular rate Rhythm: regular rhythm Peripheral pulses: radial pulses present and dorsalis pedis present GI Palpation (GI): no masses Auscultation: normal bowel sounds and normoactive bowel sounds Rectal Exam - Female: deferred Skin General skin exam: no rashes or lesions noted Rashes: no rashes Neuro General: deep tendon reflexes 2+ bilaterally and No confusion Cranial nerves: Yes Equal, round and reactive pupils present, Yes Midline tongue present, Yes Normal hearing present and Yes Ability to bilaterally elevate shoulders present Cognition (Neuro): normal cognition Gait exam (Neuro): Normal gait present Motor exam (neuro): 5/5 motor strength present throughout Deep tendon reflexes (DTR's): Right brachioradialis reflex intensity grade: 2+, Left brachioradialis reflex intensity grade: 2+, Right patellar reflex intensity grade: 2+ and Left patellar reflex intensity grade: 2+ Extrem General: No edema Assessment & Plan Assessment & Plan (1) Medicare annual wellness visit, subsequent: Code(s): Z00.00 - Encounter for general adult medical examination without abnormal findings Plan: Patient is advised to eat healthy, keep well hydrated, keep active and have adequate sleep. (2) Hypertension: Code(s): I10 - Essential (primary) hypertension Qualifiers: Hypertension type: essential hypertension Qualified Code(s): I10 - Essential (primary) hypertension Plan: Continue with blood pressure medication. Decrease salt intake and exercise patient is taking losartan 25 mg once a day metoprolol 12.5 mg twice a day (3) Atherosclerotic cardiovascular disease: Code(s): I25.10 - Atherosclerotic heart disease of nikolai coronary artery without angina pectoris Plan: Control the cholesterol, weight, blood pressure, diabetes patient is on aspirin 81 mg once a day (4) 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: Code(s): E78.5 - Hyperlipidemia, unspecified Plan: Avoid fried foods, chicken skin, eggs, butter margarine, pastries and meat. Be it pork or beef they have a lot of cholesterol LDL goal of less than 70 and triglyceride of less than 150 patient is taking simvastatin 40 mg once a day (5) Type 2 diabetes mellitus with hyperglycemia: Comment: Dr. Bauer Code(s): E11.65 - Type 2 diabetes mellitus with hyperglycemia Plan: Decrease the amount of carbohydrate intake, pasta, bread, rice and potatoes are all sugar and that is aside from all the sweet stuff, remember that fruits are good but they are Sweet also. Hemoglobin A1c goal of less than 7.0 on placed on semaglutide, metformin a 1000 mg twice a day (6) Hypothyroidism: Code(s): E03.9 - Hypothyroidism, unspecified Qualifiers: Hypothyroidism type: acquired Qualified Code(s): E03.9 - Hypothyroidism, unspecified Plan: Continue with thyroid medication (7) Obesity (BMI 30-39.9): Code(s): E66.9 - Obesity, unspecified Plan: Diet and exercise (8) Incarcerated paraesophageal hernia: Comment: March 2021 status post paraesophageal hernia repair Dr. Dalton Code(s): K44.0 - Diaphragmatic hernia with obstruction, without gangrene Plan: Avoid the foods that causes that usually spicy foods, tomato products, juices, coffee, soda and foods that your sensitive to. After eating do not lie down, allow 3-4 hours before in lie down. And keep the head of bed above 30 degrees to avoid the acid from going up. (9) OAB (overactive bladder): Code(s): N32.81 - Overactive bladder Plan: Patient is following up with urology and has been placed on Myrbetriq (10) Endometrial cancer: Comment: Status post TAHBSO February 2025 Code(s): C54.1 - Malignant neoplasm of endometrium Plan: Continue to follow-up with Gynecologic Oncology Plan History of Present Illness The patient is a 74-year-old female presenting for an annual wellness visit. She has a history of diabetes mellitus, which is currently managed with semaglutide and metformin, with a recent hemoglobin A1c of 6.9 in May, indicating controlled blood glucose levels. Her blood sugar was noted to be 151 mg/dL at that time. The patient also has hypothyroidism, which is well-managed with levothyroxine, as her thyroid function tests are within normal limits. Hypertension is another chronic condition she deals with, controlled with losartan and metoprolol. Her blood pressure readings have been stable. She has hypercholesterolemia, managed with simvastatin, achieving an LDL cholesterol level of 47 mg/dL, which is below the target of 70 mg/dL. The patient has a history of osteoarthritis of the knee, which affects her mobility, although she denies needing a cane for ambulation. Coronary artery disease is part of her medical history, and she is on aspirin as part of her management plan. She has a history of tubular adenoma of the colon, with a recent colonoscopy performed in December 2024, showing benign findings. The patient was diagnosed with endometrial cancer and underwent a robot-assisted total laparoscopic hysterectomy with bilateral salpingo-oophorectomy and sentinel lymph node biopsy in February 2025. She follows up with urology for an overactive bladder and is on Myrbetriq for management. The patient has a history of paraesophageal hernia, which was repaired in March 2021, and she experiences occasional heartburn managed with Nexium and Tums. She reports a history of esophageal ulcer but denies any current symptoms related to it. Health Maintenance - Mammogram last performed in November 2024 - Bone density scan last performed in August 2023 - Colonoscopy performed in December 2024 with benign findings - Blood work in May 2025 showed normal blood count, normal electrolytes, and renal function - Urine test in February 2025 showed no proteinuria - Vaccinations: Flu shot recommended in August, shingles vaccine discussed but declined, tetanus up to date, RSV vaccine received, one pneumonia shot received in 2013 Social History - Alcohol use: Rarely consumes alcohol, approximately once every six months, limited to one drink - Smoking history: Former smoker, quit in 1985 - Exercise: Reports decreased physical activity, leading to mild exertional dyspnea - Diet: Avoids spicy foods, tomato products, and soda; consumes coffee sparingly Review of Systems - General: Denies fever, chills, or weight loss - Cardiovascular: Denies chest pain, palpitations, or syncope - Respiratory: Denies dyspnea, cough, or wheezing - Gastrointestinal: Reports occasional heartburn; denies nausea, vomiting, or abdominal pain - Genitourinary: Reports occasional urinary urgency; denies dysuria or hematuria - Neurological: Denies headaches, dizziness, or seizures - Musculoskeletal: Reports occasional joint pain; denies muscle weakness Physical Exam General: Cooperative, healthy appearing, comfortable, no acute distress and well developed Orientation: Patient oriented x3 Limitations: No limitations Head: Normal to inspection Ears: Hearing grossly normal bilaterally Nose: Normal external nose present Face and sinus: Normal facial exam Eyes: Appearance normal, both eyes and all related structures Neck: Normal visual inspection and Yes full ROM Respiratory: Normal respiratory effort and able to speak in complete sentences. Clear to auscultation bilaterally Cardiovascular: Regular rate and rhythm. Normal S1 and S2 GI: Normal to inspection. Soft to palpation and nontender Skin: No rashes or lesions noted Neuro: Patient oriented x3 Extremities: Normal to inspection Results - Labs: Blood work in May 2025 showed normal blood count, normal electrolytes, renal function, blood sugar 151 mg/dL, hemoglobin A1c 6.9 - Tests: Urine test in February 2025 showed no proteinuria - Imaging: Mammogram in November 2024, bone density scan in August 2023 - Procedures: Colonoscopy in December 2024 with benign findings Plan Patient was informed and verbally consented to the use of an ambient scribe for clinic note documentation during this visit. 1. Diabetes Mellitus The patient's diabetes mellitus is managed with semaglutide and metformin, aiming for a hemoglobin A1c goal of less than 7.0. Her recent A1c was 6.9, indicating good control, but dietary adjustments and regular monitoring are advised to maintain this level. 2. Hypertension Hypertension is controlled with losartan and metoprolol, with stable blood pressure readings noted during the visit. 3. Hypercholesterolemia The patient is on simvastatin, with an LDL cholesterol goal of less than 70 mg/dL, currently achieving a level of 47 mg/dL. 4. Hypothyroidism Hypothyroidism is managed with levothyroxine, with thyroid function tests showing normal results. 5. Coronary Artery Disease The patient is on aspirin 81 mg daily as part of her coronary artery disease management plan. 6. Osteoarthritis Of The Knee The patient reports osteoarthritis of the knee, affecting mobility, but denies needing a cane for ambulation. 7. Overactive Bladder The patient follows up with urology for overactive bladder and is managed with Myrbetriq. 8. Paraesophageal Hernia The patient had a paraesophageal hernia repair in March 2021 and manages occasional heartburn with Nexium and Tums. 9. Endometrial Cancer The patient underwent a robot-assisted total laparoscopic hysterectomy with bilateral salpingo-oophorectomy for endometrial cancer in February 2025. 10. Tubular Adenoma Of The Colon A recent colonoscopy in December 2024 showed benign findings, and follow-up is recommended in five years. 11. Esophageal Ulcer The patient has a history of esophageal ulcer but denies current symptoms, with no recent interventions noted. Discussion Notes During the visit, we discussed the management of the patient's chronic conditions, including diabetes, hypertension, and hypercholesterolemia, emphasizing the importance of medication adherence and lifestyle modifications. We reviewed her recent lab results, which showed good control of her diabetes and cholesterol levels. The patient was advised to continue her current medications and follow up with her specialists as needed. Patient Instructions - Continue taking all prescribed medications as directed. - Monitor blood sugar levels regularly and report any significant changes. - Maintain a healthy diet and exercise regularly to support overall health. - Schedule follow-up appointments with specialists as recommended. - Consider getting the flu shot in August and discuss other vaccinations with your healthcare provider. Orders: Orders XR DEXA axial skeleton Today M81.0 - Age-related osteoporosis without current pathological fracture, N95.0 - Postmenopausal bleeding Quality Reporting (2019) Depression/Bipolar (159/160/161/177) PHQ-9: Total score: 0 Coding Level of Care Code Medicare Subsequent (G0439) Diagnoses Medicare annual wellness visit, subsequent Z00.00 Essential hypertension I10 Hypertension type: essential hypertension Atherosclerotic cardiovascular disease I25.10 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 E78.5 Type 2 diabetes mellitus with hyperglycemia E11.65 Acquired hypothyroidism E03.9 Hypothyroidism type: acquired Obesity (BMI 30-39.9) E66.9 Incarcerated paraesophageal hernia K44.0 OAB (overactive bladder) N32.81 Endometrial cancer C54.1 Additional Codes PHQ-9 - 29952 - PHQ-9 Billing: Yes ([id number])
[2025-08-13 13:39] VITALS: BMI 31.7
--- OUTSIDE RECORDS SUMMARY | 2025-08-13 17:20 | XMS_ITS | Encounter Summary ---
Author Organization [facility] Address [address] [place] [address] Phone Care Team Providers Care Shuttle Fixer Name Role Phone Buddy Morrow MD Primary Care Provider [phone] Encounter Details Date Type Department Care Team (Latest Contact Info) Description 12/28/2017 Transcribe Orders [facility] [address] [place] [address] Anmol John, DO [address] [facility] [address] [place] [address] [email or web address] Atherosclerosis of [place] coronary artery without angina pectoris, unspecified whether [place] or transplanted heart (Primary Dx) Social History Tobacco Use Types Packs/Day Years Used Date Smoking Tobacco: Former Cigarettes Q uit: 1985 Smokeless Tobacco: Never Alcohol Use Standard Drinks/Week Comments Yes 0 (1 standard drink = 0.6 oz pur e alcohol) once a month Comments Unknown Sex and Gender Information Value Date Recorded Sex Assigned at Not on file Legal Sex Female 10:41 AM EST Gender Identity Not on file Sexual Orientation Not on file documented as of this encounter Plan of Treatment Not on file documented as of this encounter Results * (ABNORMAL) Basic metabolic panel (12/28/2017 10:40 AM EST) SODIUM 140 133 - 146 mmol/L [facility] CHLORIDE 98 96 - 108 mmol/L [facility] POTASSIUM 4.4 3.3 - 5.1 mmol/L [facility] CO2 29 21 - 35 mmol/L [facility] BUN 14 6 - 19 mg/dL [facility] CREATININE 1.00 0.5 - 1.5 mg/dL [facility] GLUCOSE 133(H) 70 - 99 mg/dL [facility] CALCIUM 9.0 8.4 - 10.3 mg/dL [facility] EGFR 55(L) 60 - 1,000 mL/min/1.7 3m2 [facility] Comment:Abnormal if <60. If patient is -Mauritanian, multiply the result by 1.21. ANION GAP 17 10 - 20 mmol/L [facility] Blood 12/28/2017 10:4 0 AM EST 12/28/2017 10:46 AM EST us Anmol John DO LAB BLOOD ORDERABLES Final Re sult [address] [address] * (ABNORMAL) CBC (12/28/2017 10:40 AM EST) WBC 6.49 3.40 - 11.20 K/uL [facility] RBC 4.91(H) 3.80 - 4.80 M/uL [facility] HGB 14.0 12.0 - 15.0 g/dL [facility] HCT 41.8 36.0 - 46.0 % [facility] PLT 231 130 - 400 K/uL [facility] MCV 85.1 79.0 - 98.0 fL [facility] MCH 28.5 27.0 - 34.8 pg [facility] MCHC 33.5 31.5 - 36.0 g/dL [facility] RDW 12.2 10.8 - 14.6 % [facility] MPV 11.0 9.4 - 12.4 fl [facility] NRBC 0.00 /100 WBCs [facility] ABSOLUTE NRBC 0.00 K/uL [facility] Blood 12/28/2017 10:4 0 AM EST 12/28/2017 10:46 AM EST us Anmol John DO LAB BLOOD ORDERABLES Final Re sult [address] [address] * PT-INR (12/28/2017 10:40 AM EST) PT 11.8 10.2 - 12.9 sec [facility] INR 1.0 0.9 - 1.1 [facility] Comment:Therapeutic range fo r oral Vitamin K antagonists: 2.0-3.5 Blood 12/28/2017 10:4 0 AM EST 12/28/2017 10:46 AM EST us Anmol John DO LAB BLOOD ORDERABLES Final Re sult [address] [address] documented in this encounter Visit Diagnoses Diagnosis Atherosclerosis of [place] coronary artery without angina pectoris, unspecified whether [place] or transplanted heart- Primary documented in this encounter Care Teams Shuttle Fixer Relationship Specialty Start Date End Date Buddy Morrow MD [address] [place] [address] [place] [id number] PCP - General Internal Medicine 12/28/17 documented as of this encounter Additional Source Comments The information contained in this document represents components of the legal health record. It is not the complete legal health record.[facility]
--- OUTSIDE RECORDS SUMMARY | 2025-08-13 17:20 | XMS_ITS | Clinical Summary ---
Author Organization [facility] Address [address] [place] [address] Phone Care Team Providers Care Singe Machine Operator Name Role Phone Buddy Morrow MD Primary Care Provider [phone] Allergies Active Allergy Reactions Criticality Noted Date Comments Procaine 12/23/2017 Passes out Oxycodone Hives 12/23/2017 Hydrocodone-Acetaminophen Headaches 12/23/2017 Medications MULTIVITAMIN ORAL Take by mouth. Active omeprazole (PRILOSEC) 20 MG capsule Take 20 mg by mouth daily. Active CINNAMON BARK (CINNAMON ORAL) Take 1,000 mg by mouth 2 (two) times a day. Active FISH OIL/FLAX.OIL/E.GA IM/BCURR (FISH,FLAXSEED OIL-E.PRIM-BCURR ORAL) Take 1 capsule [...] DEPRESSION SCREENING 1960 SMOKING Hx and SMOKELESS TOBACCO SCREENING 1961 HEPATITIS C SCREENING 1966 PNEUMOCOCCAL VACCINES (50+ years) (1 of 1 - PCV) 1998 ZOSTER VACCINES (1 of 2) 1998 OSTEOPOROSIS SCREENING INITIAL (ONE-TIME) 2013 CREATININE LEVEL 12/28/2018 12/28/2017 POTASSIUM LEVEL 12/28/2018 12/28/2017 RSV VACCINE (1 - 1-dose 75+ series) 2023 COVID-19 VACCINE (2 - season) 2024 02/15/2021 INFLUENZA VACCINE (#1) 2025 9, 11/03/2018, 11/15/2016, Additional history exists HEPATITIS A VACCINES Aged Out No long [...] Routine 12/28/2017 10:40 AM EST Atherosclerosis of yurok coronary artery without angina pectoris, unspecified whether yurok or transplanted heart from Last 3 Months or Most Recently Relevant to Health Maintenance Results * (ABNORMAL) Basic metabolic panel (12/28/2017 10:40 AM EST) SODIUM 140 133 - 146 mmol/L [facility] CHLORIDE 98 96 - 108 mmol/L [facility] POTASSIUM 4.4 3.3 - 5.1 mmol/L [facility] CO2 29 21 - 35 mmol/L [facility] BUN 14 6 - 19 mg/dL [facility] CREATININE 1.00 0.5 - 1.5 mg/dL [facility] GLUCOSE 133(H) 70 - 99 mg/dL [facility] CALCIUM 9.0 8.4 - 10.3 mg/dL [facility] EGFR 55(L) 60 - 1,000 mL/min/1.7 3m2 [facility] Comment:Abnormal if <60. If patient is -Nigerien, multiply the result by 1.21. ANION GAP 17 10 - 20 mmol/L [facility] Blood 12/28/2017 10:4 0 AM EST 12/28/2017 10:46 AM EST us Anmol John DO LAB BLOOD ORDERABLES Final Re sult [facility] [address] [place] [address] from Last 3 Months or Most Recently Relevant to Health Maintenance [place] [address] MEDICARE PART A & B [facility] [place] [address] [place] [address] MEDICARE PART A & [place] [address] MEDICARE PART A & [place] [address] MEDICARE PART A & B [facility] [place] [address] MEDICARE PART A & B [facility] [place] [address] MEDICARE PART A & B [facility] [place] [address] MEDICARE PART A & B [facility] [place] [address] MEDICARE PART A & B [facility] [place] [address] MEDICARE PART A & B [facility] [place] [address] Advance Directives For more information, please contact: [phone] (9AM - 5PM [facility], Tuesday-Tuesday) * Full Code (Confirmed) (Latest Code Status on File) Date Activated Date Inactivated Comments 01/03/2018 11:38 AM 01/03/2018 5:47 PM Question Answer Comments Code Discussion Comments: Dr John Care Teams Singe Machine Operator Relationship Specialty Start Date End Date Buddy Morrow MD [address] [place] [address] [place] [address] PCP - General Internal Medicine 12/28/17 Additional Source Comments The information contained in this document represents components of the legal health record. It is not the complete legal health record.[facility]
--- OUTSIDE RECORDS SUMMARY | 2025-08-13 17:20 | XMS_ITS | Patient Health Record ---
Author Organization [facility] Address [address] [place], [place] [address] Care Team Providers Care Pulpwood Dealer Name Role Phone Chang Diaz Primary Care Provider Benjamin West Unavailable [phone] Allergies Allergen (clinical drug ingredient) Drug/Non Drug [...] Lab: Notes/Report: HEMOGLOBIN A1C % (HH) 8.6 HEMOGLOBIN A1C (GLYCOHEMOGLO BIN) Reviewed date:07/30/2025 02:45:54 PM Interpretation: Performing Lab: Notes/Report: HEMOGLOBIN A1C % (HH) 6.9 Reason For Referral No Information Medications Medication SIG (Take, Route, Frequency, Duration) Notes Start Date End Date Status Cinnamon Active Fish Oil Active Gabapentin 600 MG 1 tablet Orally Once a day Active Lasix PRN Active Levothyroxine Sodium 112 MCG 1 capsule in the morning on an empty stomach Orally Once a day Active Lopressor Not-Taking Metoclopramide HCl PRN A ctive metFORMIN HCl Active Jardiance Not-Taking Aspirin 81mg Active Bydureon Not-Taking Amitriptyline HCl 25mg daily Active Simvastatin 40mg daily Act gila Turmeric Curcumin Ac tive Vitamin D3 Active Extra Depth Orthopedic Shoes (1 Pair) with Customized Heat Molded Multidensity Innersoles (3 Pair) as directed Dx: IDDM/Polyneuropathy (E10.42), Hammertoe Foot Deformity (M20.41,M20.42), Preulcerative Skin Lesion(s) (L85.1) 06/26/2024 Active Omeprazole Not-Takin g Ozempic (0.25 or 0.5 MG/DOSE) Active Lantus 25 units Subcutaneous Not-Taking Pantoprazole Sodium 40 MG 1 tablet Orally Once a day Active Lisinopril 10 MG 1 tablet Orally Once a day; Duration: 30 day(s) Not-Taking Senokot Active Metoprolol Tartrate 50mg 1x a day Active Naproxen 500mg prn PRN Not-T aking Niacin Active Immunizations Vaccine Route Administration Date Status Comme nts Influenza Unknown 11/15/2017 Administered Influenza Unknown 11/03/2018 Administered Influenza Unknown 09/03/2022 Administered Influenza Unknown 09/20/2023 Administered Influenza Unknown 08/28/2024 Administered Pneumococcal Unknown 10/13/2015 Administered COVID-19 Moderna [...] Problem Acquired hammer toe of right foot (1703620034494421 ) Other hammer toe(s) (acquired), right foot (M20.41) Active confirmed Response to treatment, Improvemen t Problem Acquired hammer toe of left foot (1240854396085259 ) Other hammer toe(s) (acquired), left foot (M20.42) Active confirmed Response to treatment, Improvemen t Problem Polyneuropathy due to diabetes mellitus type I (562105039) 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 confirmed Vital Signs Blood pressure diastolic 70 mm Hg 07/30/2025 Height 5ft4in in 07/30/2025 Blood pressure systolic 128 mm Hg 07/30/2025 Weight 185 lbs 07/30/2025 BMI 31.75 kg/m2 07/30/2025 Procedures Procedure Date Ordered Date Performed Result Body Sit e 38522-NBTKGNI NAIL, 6 OR MORE 10/09/2024 N/A 51604-CQVL SKIN LESIONS, OVER 4 10/09/2024 N/A 64138-IXJSEUG NAIL, 6 OR MORE 01/15/2025 N/A 88754-QKOA SKIN LESIONS, OVER 4 01/15/2025 N/A 30391-HEKQTWN NAIL, 6 OR MORE 04/23/2025 N/A 19448-EGOH SKIN LESIONS, OVER 4 04/23/2025 N/A 57016-NHAWAUM NAIL, 6 OR MORE 07/30/2025 N/A 27692-CIBJ SKIN LESIONS, OVER 4 07/30/2025 N/A Encounters Encounter Location Date Provider Diagnosis [address] [address] 10/09/2024 Benjamin Leti Type 1 diabetes mellitus with diabetic polyneuropathy E10.42 and Tinea unguium B35.[address] [address] 01/15/2025 Benjamin Leti Type 1 diabetes mellitus with diabetic polyneuropathy E10.42 ; Other hammer toe(s) (acquired), right foot M20.41 ; Tinea unguium B35.1 and Other hammer toe(s) (acquired), left foot M20.[address] [address] 04/23/2025 Benjamin Leti Type 1 diabetes mellitus with diabetic polyneuropathy E10.42 and Tinea unguium B35.[address] [address] 07/30/2025 Benjamin Leti Type 1 diabetes mellitus with [...] pdf (DIABETIC FOOT CARE INSTRUCTIONS. pdf) 01/15/2025 Type 1 diabetes mellitus with diabetic polyneuropathy (ICD-10 - E10.42) 04/23/2025 Type 1 diabetes mellitus with diabetic polyneuropathy (ICD-10 - E10.42) 04/23/2025 Tinea unguium (ICD-10 - B35.1) 07/30/2025 Type 1 diabetes mellitus with diabetic polyneuropathy (ICD-10 - E10.42) 07/30/2025 Tinea unguium (ICD-10 - B35.1) 01/15/2025 Tinea unguium (ICD-10 - B35.1) 01/15/2025 Other hammer toe(s) (acquired), left foot (ICD-10 - M20.42) 10/09/2024 Other Plan Of Treatment Pending Test Test Name Order Date Hemoglobin A1c 02/11/2015 Hemoglobin A1c 12/02/2015 Hemoglobin A1c 06/03/2017 63380-OPFEOKQ NAIL, 6 OR MORE 10/09/2024 39228-HYQPDWP NAIL, 6 OR MORE 01/15/2025 78995-BOEYUJN NAIL, 6 OR MORE 04/23/2025 34775-GZGOKSC NAIL, 6 OR MORE 07/30/2025 79933-VIFADTV NAIL, 6 OR MORE 09/12/2020 46988-ECQWXKE NAIL, 6 OR MORE 12/12/2020 21255-RUMWTGF NAIL, 6 OR MORE 03/13/2021 05224-GGHOMAJ NAIL, 6 OR MORE 06/12/2021 62988-WYDYZOG NAIL, 6 OR MORE 09/18/2021 76834-EPTBCDD NAIL, 6 OR MORE 12/18/2021 58937-FVZRYNJ NAIL, 6 OR MORE 03/23/2022 03416-JMFXAMW NAIL, 6 OR MORE 06/25/2022 81177-NJYTUAQ NAIL, 6 OR MORE 09/24/2022 55389-SKZLLTJ NAIL, 6 OR MORE 12/24/2022 32103-PCFRDBZ NAIL, 6 OR MORE 03/25/2023 11522-RUKCRSJ NAIL, 6 OR MORE 06/24/2023 41502-AFNJZRB NAIL, 6 OR MORE 09/27/2023 46846-SXFNYSZ NAIL, 6 OR MORE 12/27/2023 04074-IHOOSKE NAIL, 6 OR MORE 03/27/2024 52522-XASKOZJ NAIL, 6 OR MORE 06/26/2024 26876-JHVSTQR NAIL, 6 OR MORE 08/22/2015 88128-CFBHWPB NAIL, 6 OR MORE 05/16/2015 44679-SWQAQQX NAIL, 6 OR MORE 02/11/2015 88703-RJQXRFC NAIL, 6 OR MORE 11/02/2013 77206-STHAGEL NAIL, 6 OR MORE 02/01/2014 83164-TDFOCGI NAIL, 6 OR MORE 05/10/2014 06624-AMFGVHL NAIL, 6 OR MORE 08/13/2014 11881-HRRRNZT NAIL, 6 OR MORE 11/12/2014 45404-TBQBBRE NAIL, 6 OR MORE 07/27/2011 17586-ODOCQZZ NAIL, 6 OR MORE 10/15/2011 76767-YQZQPYN NAIL, 6 OR MORE 01/14/2012 35668-FNJPSID NAIL, 6 OR MORE 04/11/2012 05907-LDUKBRA NAIL, 6 OR MORE 07/28/2012 88224-CNJPUWB NAIL, 6 OR MORE 10/13/2012 96889-JCBADKD NAIL, 6 OR MORE 01/12/2013 72683-JKSPDOS NAIL, 6 OR MORE 04/13/2013 69723-APWIMPF NAIL, 6 OR MORE 08/03/2013 20579-FUURZRR NAIL, 6 OR MORE 12/02/2015 83993-QHMKJND NAIL, 6 OR MORE 03/02/2016 60006-PLCUOIR NAIL, 6 OR MORE 06/11/2016 42260-EYWSMRT NAIL, 6 OR MORE 09/10/2016 11970-NMWZGRG NAIL, 6 OR MORE 12/10/2016 04940-VWZUPBQ NAIL, 6 OR MORE 03/04/2017 14038-HGUFSKN NAIL, 6 OR MORE 06/07/2017 00412-VLOCGGW NAIL, 6 OR MORE 09/06/2017 54681-JQXSWED NAIL, 6 OR MORE 12/09/2017 50189-ABEVKQY NAIL, 6 OR MORE 03/10/2018 22442-UNSXPNI NAIL, 6 OR MORE 06/13/2018 64744-YXFHSSO NAIL, 6 OR MORE 09/12/2018 27167-RSYOZWC NAIL, 6 OR MORE 12/26/2018 24836-AFLLZHU NAIL, 6 OR MORE 03/27/2019 45205-IJSDOUI NAIL, 6 OR MORE 06/26/2019 03108-VJWZCLU NAIL, 6 OR MORE 09/25/2019 99073-UEPQOIY NAIL, 6 OR MORE 12/25/2019 34355-WDSHSCG NAIL, 6 OR MORE 06/13/2020 00694- Debride <25 sq cm 08/03/2013 86691-TTCC SKIN LESIONS, OVER 4 11/02/20 13 04065-ZQLW SKIN LESIONS, OVER 4 11/12/20 14 80935-IIFB SKIN LESIONS, OVER 4 08/13/20 14 83033-IWTE SKIN LESIONS, OVER 4 05/10/20 14 18380-IJJR SKIN LESIONS, OVER 4 02/02/20 14 87521-CRVF SKIN LESIONS, OVER 4 02/12/20 15 49110-KZHV SKIN LESIONS, OVER 4 05/16/20 15 27770-ZDSZ SKIN LESIONS, OVER 4 08/22/20 15 38917-CSAF SKIN LESIONS, OVER 4 12/02/19 16 96084-ZWCX SKIN LESIONS, OVER 4 06/13/20 20 96238-BZAV SKIN LESIONS, OVER 4 12/25/19 20 27800-PQDM SKIN LESIONS, OVER 4 09/25/20 19 27341-IWDV SKIN LESIONS, OVER 4 06/26/20 19 44440-JQWN SKIN LESIONS, OVER 4 03/27/20 19 97867-DVYA SKIN LESIONS, OVER 4 12/26/19 19 73036-ECOS SKIN LESIONS, OVER 4 09/12/20 18 75500-WWJX SKIN LESIONS, OVER 4 06/13/20 18 50384-MOVR SKIN LESIONS, OVER 4 03/10/20 18 52002-BCYH SKIN LESIONS, OVER 4 12/09/19 18 26610-QAOH SKIN LESIONS, OVER 4 09/06/20 17 12393-JPLT SKIN LESIONS, OVER 4 03/04/20 17 90294-RIDQ SKIN LESIONS, OVER 4 06/07/20 17 27099-UKQZ SKIN LESIONS, OVER 4 12/10/19 17 49361-VDEW SKIN LESIONS, OVER 4 09/10/20 16 70328-SGTV SKIN LESIONS, OVER 4 06/11/20 16 91219-ACQB SKIN LESIONS, OVER 4 03/02/20 16 19223-ISJA SKIN LESIONS, OVER 4 06/26/20 24 24016-XZBC SKIN LESIONS, OVER 4 03/27/20 01895-UOKS SKIN LESIONS, OVER 4 12/27/19 22870-GUBJ SKIN LESIONS, OVER 4 09/27/20 07865-QDJA SKIN LESIONS, OVER 4 06/24/20 25881-UMUP SKIN LESIONS, OVER 4 03/25/20 30009-UEZJ SKIN LESIONS, OVER 4 12/24/19 34816-MJOQ SKIN LESIONS, OVER 4 09/24/20 38596-FDKU SKIN LESIONS, OVER 4 06/25/20 93036-GPNN SKIN LESIONS, OVER 4 03/23/20 08763-RIBT SKIN LESIONS, OVER 4 12/18/19 39575-SSFO SKIN LESIONS, OVER 4 09/18/20 46593-WUZX SKIN LESIONS, OVER 4 06/12/20 48463-QLJB SKIN LESIONS, OVER 4 03/13/20 66365-WVAL SKIN LESIONS, OVER 4 12/12/19 74083-JLRA SKIN LESIONS, OVER 4 09/12/20 59464-HHWI SKIN LESIONS, OVER 4 07/30/20 25553-MUZS SKIN LESIONS, OVER 4 04/23/20 81784-KSPX SKIN LESIONS, OVER 4 01/15/20 25 47343-LEZA SKIN LESIONS, OVER 4 10/09/20 24 70416-QGEZ SKIN LESIONS, 2 TO 4 07/27/20 11 29346-DBBC SKIN LESIONS, 2 TO 4 04/13/20 13 07786-CFTZ SKIN LESIONS, 2 TO 4 01/12/20 13 49391-ABQR SKIN LESIONS, 2 TO 4 10/13/20 12 03301-VSXB SKIN LESIONS, 2 TO 4 07/28/20 12 25351-WXAH SKIN LESIONS, 2 TO 4 04/11/20 12 17645-GEXK SKIN LESIONS, 2 TO 4 01/14/20 12 94281-VZEM SKIN LESIONS, 2 TO 4 10/15/20 11 HEMOGLOBIN A1C (GLYCOHEMOGLOBIN) 020 Next Appt Details Provider Name:Benjamin Landeros , 11/15/2025 12:15:00 PM, [address] [place], [address], Insurance Providers Payer Name Payer Address Payer Phone Subscriber Number Group Number Insured Name Patient Relationship to Insured Coverage Start Date Coverage End Date [employer] Medicare Adv-[id number] [address] [address] [place] [address] [id number] Miriam Henry Self - patient is the insured [facility] Claims [facility] Office of Community Care [address] [address] [place] [address] [id number] Miriam Henry Self - patient is the [...] cuff tear repair 04/26/2019 hiatal hernia repair 5'21 Cataract surgery 04/30/24 Esophageal recon 2023 Hospitalization History Reason Date(Month/Year) [facility]- hiatal hernia surgery, esophagus surgery 05/17/24 [facility]Hi[facility] Hernia flare up 02/27/2021 [facility]- Hiatal hernia flare up 05/21/19 [facility] virus 11/21/2017
--- OUTSIDE RECORDS SUMMARY | 2025-08-13 17:20 | XMS_ITS | Clinical Summary ---
Author Organization [facility] Address [address] [place] [address] Phone Care Team Providers Care Cpc Coder Name Role Phone Chang Diaz Poonam FRYER OPERATOR Primary Care Provider Allergies Active Allergy Reactions Criticality Noted Date [...] Diagnosed Date DM2 (diabetes mellitus, type 2) ([facility], [facility] V28) HTN (hypertension) Hypercholesterolemia Hypothyroid Resolved Problems Problem Noted Date Diagnosed Date Resolved Date Endometrial cancer ([facility] V24, [facility] V28) 03/05/20 25 03/11/2025 Encounters Date Type Department Care Team Description 05/21/2025 4:00 PM EDT Office Visit [facility] Care [address] [address] Bessy Londono MD Endometrial cancer ([facility] V24, [facility] V28) (Primary Dx); Groin swelling; Localized swelling [...] Coronary atherosclerosis of unspecified type of vessel, [place] or graft 07/25/2012 HTN (hypertension) 07/25/2012 Hypercholesterolemia [...] Description 11/12/2025 1:00 PM EST Office Visit [facility] [address] [place] [address] Bessy Londono MD [address] [place] [address] Health Maintenance Due Date Last Done Comments [...] 11/28/2024 COVID-19 Vaccine (7 - Moderna risk 2023- season) 2025 09/07/2024, 02/22/2024, 09/25/2022, Additional history [...] Associated Diagnosis Comments BASIC METABOLIC PANEL Routine 03/08/2025 11:06 AM EDT Endometrial cancer ([facility] V24, [facility] V28) from Last 3 Months or Most Recently Relevant to Health Maintenance Results * (ABNORMAL) Basic metabolic panel (03/08/2025 11:06 AM EDT) Sodium 139 133 - 145 mmol/L LAB CHEMISTRY METHOD 03/08/2025 11:58 AM [facility] Potassium 3.3(L) 3.5 - 5.5 mmol/L LAB CHEMISTRY METHOD 03/08/2025 11:58 AM [facility] Chloride 104 96 - 110 mmol/L LAB CHEMISTRY METHOD 03/08/2025 11:58 AM [facility] CO2 27 21 - 32 mmol/L LAB CHEMISTRY METHOD 03/08/2025 11:58 AM [facility] Anion Gap 8 3 - 11 LAB CHEMISTRY METHOD 03/08/2025 11:58 AM [facility] Glucose 196(H) 70 - 100 mg/dL LAB CHEMISTRY METHOD 03/08/2025 11:58 AM [facility] BUN 10 5 - 25 mg/dL LAB CHEMISTRY METHOD 03/08/2025 11:58 AM [facility] Creatinine 1.06 0.50 - 1.10 mg/dL LAB CHEMISTRY METHOD 03/08/2025 11:58 AM EDT [facility] eGFR 55(L) >=60 mL/min/1. 73m2 LAB CHEMISTRY METHOD 03/08/2025 11:58 AM EDT [facility] Comment:Calculation based on the Chronic Kidney Disease Epidemiology Collaboration (CKD-EPI) equation refit without adjustment for race. BUN/Creatinine Ratio 9.4 LAB CHEMISTRY METHOD 03/08/2025 11:58 AM EDT [facility] Calcium 9.3 8.5 - 10.5 mg/dL LAB CHEMISTRY METHOD 03/08/2025 11:58 AM EDT [facility] Blood Venous blood specimen / Unknown Venipuncture / Unknown 03/08/2025 11:06 AM EDT 03/08/2025 11:25 AM EDT us Bessy Londono MD LAB BLOOD ORDERABLES Final Resul t [facility] [address] [place] [address], from Last 3 Months or Most Recently Relevant to Health Maintenance Insurance [employer] MEDICARE [facility] Advance Directives Documents on File Type Date Recorded Patient Workers Compensation Claims Adjuster Expl anation Power of Safe Deposit Clerk 03/11/2025 12:58 PM HCP Power of Safe Deposit Clerk 03/11/2025 12:47 PM [facility] PROXY(NOT SIGNED) Care Teams Cpc Coder Relationship Specialty Start Date End Date Chang Diaz FNP [address] [place] [address] PCP - General Family Medicine 05/21/25
--- OUTSIDE RECORDS SUMMARY | 2025-08-13 17:20 | XMS_ITS | Encounter Summary ---
Author Organization [facility] Address [address] [place] [address] Phone Care Team Providers Care Mailing Jogger Name Role Phone Buddy Morrow MD Primary Care Provider [phone] Encounter Details Date Type Department Care Team (Late st Contact Info) Description 01/03/2018 Procedure Pass [facility] [address] [place] [address] Social History Tobacco Use Types Packs/Day Years [...] on filedocumented in this encounter Care Teams Mailing Jogger Relationship Specialty Start Date End Date Buddy Morrow MD [address] [place] [address] [place] [address] PCP - General Internal Medicine 12/28/17 documented as of this encounter Additional Source Comments The information contained in this document represents components of the legal health record. It is not the complete legal health record.[facility]
== END 2025-08-13 15:58 | disposition home or self-care (01) ==
LOC: HO.HMCH 13:24
PROVIDERS: PCP Internal Medicine; Visit Provider Internal Medicine
DX: Z00.00 Encounter for general adult medical examination without abnormal findings (principal); E11.65 Type 2 diabetes mellitus with hyperglycemia; C54.1 Malignant neoplasm of endometrium; E66.9 Obesity, unspecified; Z68.31 Body mass index [BMI] 31.0-31.9, adult; I10 Essential (primary) hypertension; I25.10 Atherosclerotic heart disease of native coronary artery without angina pectoris; E78.5 Hyperlipidemia, unspecified; E03.9 Hypothyroidism, unspecified; K44.0 Diaphragmatic hernia with obstruction, without gangrene; N32.81 Overactive bladder

== ENCOUNTER → 2025-08-13 13:24 | Outpatient (BNVA) | payer MEDICARE, OTHER, SELFPAY | PROVIDERS: PCP Internal Medicine; Visit Provider Internal Medicine | DX: Z00.00 Encounter for general adult medical examination without abnormal findings (principal); I10 Essential (primary) hypertension; I25.10 Atherosclerotic heart disease of native coronary artery without angina pectoris; E11.65 Type 2 diabetes mellitus with hyperglycemia; E03.9 Hypothyroidism, unspecified; E66.9 Obesity, unspecified; K44.0 Diaphragmatic hernia with obstruction, without gangrene; N32.81 Overactive bladder; C54.1 Malignant neoplasm of endometrium; E78.00 Pure hypercholesterolemia, unspecified; Z86.0101 Personal history of adenomatous and serrated colon polyps; Z68.31 Body mass index [BMI] 31.0-31.9, adult | CPT/HCPCS: 96127 ==

== ENCOUNTER 2025-08-14 13:08 | Outpatient (AMB) | payer MEDICARE, OTHER, SELFPAY ==
[2025-08-14 13:14] VITALS: BP 120/62; PULSE 71; BMI 31.4
--- NOTE | 2025-08-14 13:14 | A.OFFVIS_ITS ---
Vital Signs 08/14/25 13:14 Height 5 ft 4 in Weight 182 lb 15.739 oz BMI 31.4 BP 120/62 Blood Pressure Location Lt brachial Position Sitting Pulse 71 Pulse Source Monitor Intake Visit Reasons: 1 yr f/up Allergies hydrocodone (From VICODIN) Allergy (Unknown, Verified 08/13/25 13:34) HEADACHE oxycodone (OXYCODONE) Allergy (Unknown, Verified 08/13/25 13:34) HIVES procaine (From NOVOCAIN) Allergy (Unknown, Verified 08/13/25 13:34) FAINTED Medication List - Last Reconciled 08/14/25 by Carson Bender MD amitriptyline 25 mg PO DAILY aspirin 81 mg PO DAILY bisacodyl (Dulcolax (bisacodyl)) 10 mg (2 x 5 mg) PO BEDTIME calcium carbonate (Tums) 200 mg PO BID cholecalciferol (vitamin D3) 25 mcg PO DAILY cinnamon bark (Cinnamon) 1,000 mg PO BID esomeprazole magnesium (Nexium) 40 mg PO DAILY fish,bora,flax oils-om3,6,9no1 1,200 mg caps PO gabapentin 600 mg PO DAILY levothyroxine 112 mcg PO DAILY losartan 25 mg PO DAILY metformin 1,000 mg PO BID metoprolol tartrate 12.5 mg (1/2 x 25 mg) PO BID mirabegron ER (Myrbetriq) 25 mg PO DAILY multivitamin 1 tab PO DAILY niacin 50 mg PO BEDTIME semaglutide (Ozempic) 0.25 mg (0.368 mL) subcut QWEEK simvastatin 40 mg PO BEDTIME 90 days HPI Comments Details: Miriam returns for follow-up regarding coronary disease. She used to see [facility] in the past. She has had cardiac catheterization few years ago. Otherwise, today's blood pressure seems high, but she states it is very labile and can be up or down. Some of the recorded blood pressures are on the lower side but today it is high. Variable numbers. Overall, she states she feels fine. No angina or shortness of breath. She has had dizziness in the past. [facility] Medical History (Updated 08/13/25 @ 14:32 by Rosanne Villeda MD) Urinary incontinence UTI symptoms Obesity Elevated TSH Diabetes mellitus with coincident hypertension Hypoglycemia unawareness associated with type 2 diabetes mellitus Type 2 diabetes mellitus with unspecified complications [facility] (current) use of insulin Tubular adenoma of colon Hx of esophageal ulcer (~04/2024) Dysphagia Hyperlipidemia associated with type 2 diabetes mellitus Post-menopausal Screening for breast cancer Dizziness Pre-op exam Hiatal hernia (~04/2024) IDDM (insulin dependent diabetes mellitus) Pre-op exam Diabetic polyneuropathy associated with type 2 diabetes mellitus Obesity (BMI 30-39.9) Hypertension Hypothyroidism 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 Surgical History History of hysterectomy History of abdominal paracentesis History of esophagogastroduodenoscopy (EGD) History of colonoscopy History of repair of hiatal hernia History of cardiac catheterization Hx of hammer toe correction Hx of shoulder surgery Hx of tonsillectomy Hx laparoscopic cholecystectomy Hx of appendectomy Family History Brother Diabetes Father Lung cancer Mother HTN (hypertension) Social History (Updated 08/13/25 @ 14:20 by Rosanne Villeda MD) Household Members: Family Housing: House Are you a primary manager long term care to a significant other at home: No Do you presently have visiting nurse or other home services: No Alcohol intake: current Alcohol intake frequency: holidays/special occasions only Comment: once q 6 months 1 drink Patient Tobacco Use Status: Former Tobacco user Tobacco use type: Cigarette Years Smoked: 20 quit 1985 e-Cigarette/Vaping Use: Never Used Second Hand Smoke Exposure: Yes service: No Current occupational status: retired Cognitive needs: No Hearing needs: No Vision needs: Yes (Glasses) Review of Systems Const Denies weakness ENT Denies dizziness Card Denies chest pain, Denies chest pain with activity, Denies syncope, Denies rapid heart rate, Denies pedal edema, Denies edema, Denies leg edema, Denies lightheadedness, Denies palpitations, Denies dyspnea, Denies dyspnea on exertion and Denies orthopnea Resp Denies cough, Denies dyspnea and Denies dyspnea on exertion GI Denies hematochezia and Denies change in stool character Musc Denies abnormal gait, Denies muscle cramps, Denies muscle weakness, Denies numbness, Denies radiating pain into limb and Denies tingling Neuro Denies abnormal gait, Denies dizziness, Denies syncope, Denies numbness, Denies tingling and Denies weakness Endo Denies palpitations Physical Exam Vital Signs: Last Vital Signs Pulse 71 08/14/25 13:14 BP 120/62 08/14/25 13:14 BMI result Body Mass Index 31.4 Const General: comfortable and no acute distress Orientation/consciousness: patient oriented x3 HEENT Other: Unremarkable Head: Yes normal to inspection Neck Neck: Yes normal visual inspection Chest Chest palpation & inspection: normal inspection of the chest Resp Auscultation: clear to auscultation bilaterally Cardio Palpation: normal PMI Heart sounds: S1 normal heart sound present, S2 normal heart sound present, no gallops, no murmurs and no rubs GI Palpation (GI): Soft to palpation Back/Spine/Pelvis Other: unremarkable Skin General skin exam: no rashes or lesions noted Neuro General: patient oriented x3 Extrem General: Yes normal to inspection Psych Mental Status: mental status grossly normal Office Procedures EKG Details: EKG with underlying sinus rhythm at 71/Min; VA prolongation to 284 milliseconds; normal corrected QT; no ischemic findings. 09447-Iphoqobbjrkkbeuhl, Complete Assessment & Plan Assessment & Plan (1) Atherosclerotic cardiovascular disease: Code(s): I25.10 - Atherosclerotic heart disease of [place] coronary artery without angina pectoris Category: Medical Plan: Cardiac catheterization from 2018 with 60% stenosis in the ostial PLV branch, but otherwise unremarkable. Echocardiogram with LVEF of 65-70% with mild diastolic dysfunction. Clinically, she has got no angina. Continue aspirin and statins. Due to prolonged VA, advised her to take once a day beta-shannon instead. However, she states she needs it for migraine and has taken it for decades- but she is willing to try once a day. If no migraine issues, possibly stop in the future. (2) Type 2 diabetes mellitus with unspecified complications: Code(s): E11.8 - Type 2 diabetes mellitus with unspecified complications Category: Medical Plan: On metformin. Hemoglobin A1c is 6.9%. Reasonable. (3) Essential hypertension: Code(s): I10 - Essential (primary) hypertension Category: Medical Plan: Stable. In the past, Losartan was added. (4) Other and unspecified hyperlipidemia: Code(s): E78.5 - Hyperlipidemia, unspecified Category: Medical Plan: On statins. LDL levels controlled. (5) First degree heart block: Code(s): I44.0 - Atrioventricular block, first degree Category: Medical Plan: Previously beta-shannon dose decreased but we can decrease further as discussed above. Plan Discussion Notes During the visit, we discussed the importance of adjusting the metoprolol dosage to once daily to prevent further slowing of cardiac conduction. We also reviewed the patient's significant weight loss and its positive impact on diabetes management. The patient was advised to continue monitoring her blood pressure and blood glucose levels regularly. Patient was informed and verbally consented to the use of an ambient scribe for clinic note documentation during this visit. Patient Instructions: - Take metoprolol once daily instead of twice. - Continue taking losartan as prescribed. - Monitor blood pressure and blood glucose levels regularly. - Maintain a balanced diet to support weight management. Coding Level of Care Code Est Pt Level 4 (51036) Complex EM visit Add On G2211 Diagnoses Atherosclerotic cardiovascular disease I25.10 Type 2 diabetes mellitus with unspecified complications E11.8 Essential hypertension I10 Other and unspecified hyperlipidemia E78.5 First degree heart block I44.0 CPT Codes EKG - CPT: 38577-Znrteievhrhljxhka, Complete ([id number])
--- OUTSIDE RECORDS SUMMARY | 2025-08-14 16:47 | XMS_ITS | Encounter Summary ---
Author Organization [facility] Address [address] [place] [address] Phone Care Team Providers Care Medical Records Receptionist Name Role Phone Buddy Morrow MD Primary Care Provider [phone] Encounter Details Date Type Department Care Team (Latest Contact Info) Description 12/28/2017 Transcribe Orders [facility] [address] [place] [address] Anmol John, DO [address] [facility] [address] [place] [address] [email or web address] Atherosclerosis of [place] coronary artery without angina pectoris, unspecified whether [place] or transplanted heart (Primary Dx) Social History [...] EST) SODIUM 140 133 - 146 mmol/L [facility] CHLORIDE 98 96 - 108 mmol/L [facility] POTASSIUM 4.4 3.3 - 5.1 mmol/L [facility] CO2 29 21 - 35 mmol/L [facility] BUN 14 6 - 19 mg/dL [facility] CREATININE 1.00 0.5 - 1.5 mg/dL [facility] GLUCOSE 133(H) 70 - 99 mg/dL [facility] CALCIUM 9.0 8.4 - 10.3 mg/dL [facility] EGFR 55(L) 60 - 1,000 mL/min/1.7 3m2 [facility] Comment:Abnormal if <60. If patient is -[place]auritanian, multiply the result by 1.21. ANION GAP 17 10 - 20 mmol/L [facility] Blood 12/28/2017 10:4 0 AM EST 12/28/2017 10:46 AM EST us Anmol John DO LAB BLOOD ORDERABLES Final Re sult [address] [address] * (ABNORMAL) CBC (12/28/2017 10:40 AM EST) WBC 6.49 3.40 - 11.20 K/uL [facility] RBC 4.91(H) 3.80 - 4.80 M/uL [facility] HGB 14.0 12.0 - 15.0 g/dL [facility] HCT 41.8 36.0 - 46.0 % [facility] PLT 231 130 - 400 K/uL [facility] MCV 85.1 79.0 - 98.0 fL [facility] MCH 28.5 27.0 - 34.8 pg [facility] MCHC 33.5 31.5 - 36.0 g/dL [facility] RDW 12.2 10.8 - 14.6 % [facility] MPV 11.0 9.4 - 12.4 fl [facility] NRBC 0.00 /100 WBCs [facility] ABSOLUTE NRBC 0.00 K/uL [facility] Blood 12/28/2017 10:4 0 AM EST 12/28/2017 10:46 AM EST us Anmol John DO LAB BLOOD ORDERABLES Final Re sult [address] [address] * PT-INR (12/28/2017 10:40 AM EST) PT 11.8 10.2 - 12.9 sec [facility] INR 1.0 0.9 - 1.1 [facility] Comment:Therapeutic range fo r oral Vitamin K antagonists: 2.0-3.5 Blood 12/28/2017 10:4 0 AM EST 12/28/2017 10:46 AM EST us Anmol John DO LAB BLOOD ORDERABLES Final Re sult [address] [address] documented in this encounter Visit Diagnoses Diagnosis Atherosclerosis of [place] coronary artery without angina pectoris, unspecified whether [place] or transplanted heart- Primary documented in this encounter Care Teams Medical Records Receptionist Relationship Specialty Start Date End Date Buddy Morrow MD [address] [place] [address] [place] [address] PCP - General Internal Medicine 12/28/17 documented as of this encounter Additional Source Comments The information contained in this document represents components of the legal health record. It is not the complete legal health record.[facility]
--- OUTSIDE RECORDS SUMMARY | 2025-08-14 16:47 | XMS_ITS | Encounter Summary ---
Author Organization [facility] Address [address] [place] [address] Phone Care Team Providers Care Popcorn Machine Operator Name Role Phone Buddy Morrow MD Primary Care Provider [phone] Encounter Details Date Type Department Care Team (Late st Contact Info) Description 01/03/2018 Procedure Pass [facility] [address] [place] [address] Social History Tobacco Use Types Packs/Day Years [...] on filedocumented in this encounter Care Teams Popcorn Machine Operator Relationship Specialty Start Date End Date Buddy Morrow MD [address] [place] [address] [place] [address] PCP - General Internal Medicine 12/28/17 documented as of this encounter Additional Source Comments The information contained in this document represents components of the legal health record. It is not the complete legal health record.[facility]
--- OUTSIDE RECORDS SUMMARY | 2025-08-14 16:47 | XMS_ITS | Clinical Summary ---
Author Organization [facility] Address [address] [place] [address] Phone Care Team Providers Care Supervisor Tower Name Role Phone Buddy Morrow MD Primary Care Provider Allergies Active Allergy Reactions Criticality Noted Date Comments Procaine 12/23/2017 Passes out Oxycodone Hives 12/23/2017 Hydrocodone-Acetaminophen Headaches 12/23/2017 Medications MULTIVITAMIN ORAL Take by mouth. Active omeprazole (PRILOSEC) 20 MG capsule Take 20 mg by mouth daily. Active CINNAMON BARK (CINNAMON ORAL) Take 1,000 mg by mouth 2 (two) times a day. Active FISH OIL/FLAX.OIL/E.CO IM/BCURR (FISH,FLAXSEED OIL-E.PRIM-BCURR ORAL) Take 1 capsule [...] Routine 12/28/2017 10:40 AM EST Atherosclerosis of [place] coronary artery without angina pectoris, unspecified whether [place] or transplanted heart from Last 3 Months or Most Recently Relevant to Health Maintenance Results * (ABNORMAL) Basic metabolic panel (12/28/2017 10:40 AM EST) SODIUM 140 133 - 146 mmol/L [facility] CHLORIDE 98 96 - 108 mmol/L [facility] POTASSIUM 4.4 3.3 - 5.1 mmol/L [facility] CO2 29 21 - 35 mmol/L [facility] BUN 14 6 - 19 mg/dL [facility] CREATININE 1.00 0.5 - 1.5 mg/dL [facility] GLUCOSE 133(H) 70 - 99 mg/dL [facility] CALCIUM 9.0 8.4 - 10.3 mg/dL [facility] EGFR 55(L) 60 - 1,000 mL/min/1.7 3m2 [facility] Comment:Abnormal if <60. If patient is -[place], multiply the result by 1.21. ANION GAP 17 10 - 20 mmol/L [facility] Blood 12/28/2017 10:4 0 AM EST 12/28/2017 10:46 AM EST us Anmol John DO LAB BLOOD ORDERABLES Final Re sult [facility] [address] [place] [address] from Last 3 Months or Most Recently Relevant to Health Maintenance [place] [address] MEDICARE PART A & [place] [facility] [place] [address] [place] [address] MEDICARE PART A & [place] [address] MEDICARE PART A & [place] [address] MEDICARE PART A & [place] [facility] [place] [address] MEDICARE PART A & [place] [facility] [place] [address] MEDICARE PART A & [place] [facility] [place] [address] MEDICARE PART A & [place] [facility] [place] [address] MEDICARE PART A & [place] [facility] [place] [address] MEDICARE PART A & [place] [facility] [place] [address] Advance Directives For more information, please contact: [phone] (9AM - 5PM [facility], Tuesday-Tuesday) * Full Code (Confirmed) (Latest Code Status on File) Date Activated Date Inactivated Comments 01/03/2018 11:38 AM 01/03/2018 5:47 PM Question Answer Comments Code Discussion Comments: Dr John Care Teams Supervisor Tower Relationship Specialty Start Date End Date Buddy Morrow MD [address] [place] [address] [place] [address] PCP - General Internal Medicine 12/28/17 Additional Source Comments The information contained in this document represents components of the legal health record. It is not the complete legal health record.[facility]
--- OUTSIDE RECORDS SUMMARY | 2025-08-14 16:47 | XMS_ITS | Patient Health Record ---
[facility] Address [address] [place], [place] [address] Care Team Providers Care Service Provider Name Role Phone Chang Diaz Primary Care Provider Benjamin West Unavailable [phone] Allergies Allergen (clinical drug ingredient) Drug/Non Drug [...] Problem Acquired hammer toe of right foot (9427130378767055 ) Other hammer toe(s) (acquired), right foot (M20.41) Active confirmed Response to treatment, Improvemen t Problem Acquired hammer toe of left foot ([id number] ) Other hammer toe(s) (acquired), left foot (M20.42) Active confirmed Response to treatment, Improvemen t Problem Polyneuropathy due to diabetes mellitus type I (858574374) 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 confirmed Vital Signs Blood pressure diastolic 70 mm Hg 07/30/2025 Height 5ft4in in 07/30/2025 Blood pressure systolic 128 mm Hg 07/30/2025 Weight 185 lbs 07/30/2025 BMI 31.75 kg/m2 07/30/2025 Procedures Procedure Date Ordered Date Performed Result Body Sit e 48390-XXXYPLZ NAIL, 6 OR MORE 10/09/2024 N/A 69965-TQDA SKIN LESIONS, OVER 4 10/09/2024 N/A 55504-BERGCSE NAIL, 6 OR MORE 01/15/2025 N/A 00615-AMVG SKIN LESIONS, OVER 4 01/15/2025 N/A 18324-YYNGKDA NAIL, 6 OR MORE 04/23/2025 N/A 15638-JTEG SKIN LESIONS, OVER 4 04/23/2025 N/A 82141-EEJWEQK NAIL, 6 OR MORE 07/30/2025 N/A 50768-DZVH SKIN LESIONS, OVER 4 07/30/2025 N/A Encounters Encounter Location Date Provider Diagnosis [address] [address] 10/09/2024 Benjamin Leti Type 1 diabetes mellitus with diabetic polyneuropathy E10.42 and Tinea unguium B35.[address] [address] 01/15/2025 Benjamin Leti Type 1 diabetes mellitus with diabetic polyneuropathy E10.42 ; Other hammer toe(s) (acquired), right foot M20.41 ; Tinea unguium B35.1 and Other hammer toe(s) (acquired), left foot M20.[address] [address] 04/23/2025 Benjamin Leti Type 1 diabetes mellitus with diabetic polyneuropathy E10.42 and Tinea unguium B35.[address] [address] 07/30/2025 Benjamin Leti Type 1 diabetes mellitus [...] 02/11/2015 Hemoglobin A1c 12/02/2015 Hemoglobin A1c 06/03/2017 12540-JCHMXND NAIL, 6 OR MORE 10/09/2024 09351-HBFCDSX NAIL, 6 OR MORE 01/15/2025 70013-TLRYBRJ NAIL, 6 OR MORE 04/23/2025 00398-INSDRVC NAIL, 6 OR MORE 07/30/2025 72111-UWCYSKG NAIL, 6 OR MORE 09/12/2020 77600-ZHXRMZO NAIL, 6 OR MORE 12/12/2020 36716-HKZTERM NAIL, 6 OR MORE 03/13/2021 43356-NGRGNWA NAIL, 6 OR MORE 06/12/2021 36552-WZWNTQF NAIL, 6 OR MORE 09/18/2021 31884-ODZGWTO NAIL, 6 OR MORE 12/18/2021 17940-VPWMJOK NAIL, 6 OR MORE 03/23/2022 87963-SKQOYLY NAIL, 6 OR MORE 06/25/2022 02324-YVAEJGS NAIL, 6 OR MORE 09/24/2022 95608-SGAYHHB NAIL, 6 OR MORE 12/24/2022 35157-PYAXXSU NAIL, 6 OR MORE 03/25/2023 01508-AQDEDRQ NAIL, 6 OR MORE 06/24/2023 53772-OXNUPYU NAIL, 6 OR MORE 09/27/2023 33137-AJIWWKI NAIL, 6 OR MORE 12/27/2023 82527-JWWLZIR NAIL, 6 OR MORE 03/27/2024 29208-KSEBQUY NAIL, 6 OR MORE 06/26/2024 74014-EQZLJWM NAIL, 6 OR MORE 08/22/2015 40404-DOAGXTY NAIL, 6 OR MORE 05/16/2015 90213-UTMGNLJ NAIL, 6 OR MORE 02/11/2015 68305-TKBYLAT NAIL, 6 OR MORE 11/02/2013 07405-DZYALQG NAIL, 6 OR MORE 02/01/2014 20037-QGHXUVR NAIL, 6 OR MORE 05/10/2014 56915-RTPGFZI NAIL, 6 OR MORE 08/13/2014 91491-ZNQJXXV NAIL, 6 OR MORE 11/12/2014 86086-ZMPDPTR NAIL, 6 OR MORE 07/27/2011 51373-IUQBCIP NAIL, 6 OR MORE 10/15/2011 06111-PUBLBTD NAIL, 6 OR MORE 01/14/2012 27817-CHDDJIS NAIL, 6 OR MORE 04/11/2012 77487-VVWRWBI NAIL, 6 OR MORE 07/28/2012 43058-LNIDOHB NAIL, 6 OR MORE 10/13/2012 81793-DVXUJVO NAIL, 6 OR MORE 01/12/2013 90547-PEIUFHX NAIL, 6 OR MORE 04/13/2013 03896-LSAYHZR NAIL, 6 OR MORE 08/03/2013 95625-LRPEWHK NAIL, 6 OR MORE 12/02/2015 01636-AUSWUQI NAIL, 6 OR MORE 03/02/2016 76119-OISMXHF NAIL, 6 OR MORE 06/11/2016 84126-LVHHHZP NAIL, 6 OR MORE 09/10/2016 15357-BFOTLKY NAIL, 6 OR MORE 12/10/2016 87106-UYNWRYO NAIL, 6 OR MORE 03/04/2017 42541-PPLQYKV NAIL, 6 OR MORE 06/07/2017 16413-IJENPED NAIL, 6 OR MORE 09/06/2017 27571-AHPMPLT NAIL, 6 OR MORE 12/09/2017 47699-KGCLOGN NAIL, 6 OR MORE 03/10/2018 83247-YQOHCEB NAIL, 6 OR MORE 06/13/2018 57456-JCPXVWC NAIL, 6 OR MORE 09/12/2018 47845-XQXLRNO NAIL, 6 OR MORE 12/26/2018 30505-ZYOBOAJ NAIL, 6 OR MORE 03/27/2019 59429-EVTGUHN NAIL, 6 OR MORE 06/26/2019 39136-ZUYLAPU NAIL, 6 OR MORE 09/25/2019 32011-CKIFAPL NAIL, 6 OR MORE 12/25/2019 45871-LFPNAOZ NAIL, 6 OR MORE 06/13/2020 95789- Debride <25 sq cm 08/03/2013 95201-JWXN SKIN LESIONS, OVER 4 11/02/20 13 58416-MXUD SKIN LESIONS, OVER 4 11/12/20 14 38194-WKZK SKIN LESIONS, OVER 4 08/13/20 14 79427-CJUJ SKIN LESIONS, OVER 4 05/10/20 14 60671-PTHD SKIN LESIONS, OVER 4 02/02/20 14 34205-ZFHJ SKIN LESIONS, OVER 4 02/12/20 15 86018-WPMG SKIN LESIONS, OVER 4 05/16/20 15 32097-NXKC SKIN LESIONS, OVER 4 08/22/20 15 31254-ECKM SKIN LESIONS, OVER 4 12/02/19 16 87051-GTTY SKIN LESIONS, OVER 4 06/13/20 20 71671-MXIH SKIN LESIONS, OVER 4 12/25/19 20 79755-QQOO SKIN LESIONS, OVER 4 09/25/20 19 04832-VFFZ SKIN LESIONS, OVER 4 06/26/20 19 27769-JSDW SKIN LESIONS, OVER 4 03/27/20 19 59442-AVFJ SKIN LESIONS, OVER 4 12/26/19 19 32610-LDAO SKIN LESIONS, OVER 4 09/12/20 18 80737-YJFM SKIN LESIONS, OVER 4 06/13/20 18 85068-UMXJ SKIN LESIONS, OVER 4 03/10/20 18 04722-DRXA SKIN LESIONS, OVER 4 12/09/19 18 42070-OIAG SKIN LESIONS, OVER 4 09/06/20 17 99917-FSAO SKIN LESIONS, OVER 4 03/04/20 17 66106-RMRZ SKIN LESIONS, OVER 4 06/07/20 17 65623-LJFN SKIN LESIONS, OVER 4 12/10/19 17 22672-OLVK SKIN LESIONS, OVER 4 09/10/20 16 52601-TSUB SKIN LESIONS, OVER 4 06/11/20 16 29359-IOKA SKIN LESIONS, OVER 4 03/02/20 16 97750-CEFK SKIN LESIONS, OVER 4 06/26/20 24 26284-OUTC SKIN LESIONS, OVER 4 03/27/20 26637-HKVV SKIN LESIONS, OVER 4 12/27/19 83778-XSSI SKIN LESIONS, OVER 4 09/27/20 95583-TRKU SKIN LESIONS, OVER 4 06/24/20 34728-XVUD SKIN LESIONS, OVER 4 03/25/20 93107-FCKS SKIN LESIONS, OVER 4 12/24/19 46285-XDSF SKIN LESIONS, OVER 4 09/24/20 90855-QLCE SKIN LESIONS, OVER 4 06/25/20 54116-AVMF SKIN LESIONS, OVER 4 03/23/20 95516-ORWY SKIN LESIONS, OVER 4 12/18/19 45210-THII SKIN LESIONS, OVER 4 09/18/20 77484-MDJY SKIN LESIONS, OVER 4 06/12/20 58896-CURE SKIN LESIONS, OVER 4 03/13/20 60488-OYFM SKIN LESIONS, OVER 4 12/12/19 24716-JMVH SKIN LESIONS, OVER 4 09/12/20 10585-SJLF SKIN LESIONS, OVER 4 07/30/20 81997-YEAD SKIN LESIONS, OVER 4 04/23/20 81590-DJBX SKIN LESIONS, OVER 4 01/15/20 25 75962-MUXB SKIN LESIONS, OVER 4 10/09/20 24 12337-VGIZ SKIN LESIONS, 2 TO 4 07/27/20 11 85361-GPRV SKIN LESIONS, 2 TO 4 04/13/20 13 72613-EQFI SKIN LESIONS, 2 TO 4 01/12/20 13 52353-QYZO SKIN LESIONS, 2 TO 4 10/13/20 12 40665-GTYU SKIN LESIONS, 2 TO 4 07/28/20 12 22524-RIKT SKIN LESIONS, 2 TO 4 04/11/20 12 53184-IATD SKIN LESIONS, 2 TO 4 01/14/20 12 90298-HMYZ SKIN LESIONS, 2 TO 4 10/15/20 11 HEMOGLOBIN A1C (GLYCOHEMOGLOBIN) 020 Next Appt Details Provider Name:Benjamin Landeros , 11/15/2025 12:15:00 PM, [address] [place], [address], Insurance Providers Payer Name Payer Address Payer Phone Subscriber Number Group Number Insured Name Patient Relationship to Insured Coverage Start Date Coverage End Date [employer] Medicare Adv-87448 [address] [address] [place] [address] [id number] Miriam Henry Self - patient is the insured [facility] Claims [facility] Office of Community Care [address] [address] [place] [address] [id number] Miriam Henry Self - patient is the [...] [facility], [facility] 05/17/24 [facility] flare up 02/27/2021 [facility]- Hiatal hernia flare up 05/21/19 [facility] virus 11/21/2017
--- OUTSIDE RECORDS SUMMARY | 2025-08-14 16:47 | XMS_ITS | Clinical Summary ---
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 Primary Care Provider Allergies Active Allergy Reactions [...] DM2 (diabetes mellitus, type 2) ([facility] V24, [facility] /[facility] V28) HTN (hypertension) Hypercholesterolemia Hypothyroid Resolved Problems Problem Noted Date Diagnosed Date Resolved Date Endometrial cancer ([facility] V24, [facility] V28) 03/05/20 25 03/11/2025 Encounters Date Type Department Care Team Description 05/21/2025 4:00 PM EDT Office Visit [facility] [address] [address] Bessy Londono MD Endometrial cancer ([facility] V24, [facility] V28) (Primary Dx); Groin swelling; [...] Coronary atherosclerosis of unspecified type of vessel, [place] or graft 07/25/2012 HTN (hypertension) 07/25/2012 Hypercholesterolemia [...] Description 11/12/2025 1:00 PM EST Office Visit [facility] [address] [place] [address] Bessy Londono MD [address] [place] [address] Health Maintenance Due Date Last Done Comments [...] Routine 03/08/2025 11:06 AM EDT Endometrial cancer ([facility] V24, [facility] V28) from Last 3 Months or Most Recently Relevant to Health Maintenance Results * (ABNORMAL) Basic metabolic panel (03/08/2025 11:06 AM EDT) Sodium 139 133 - 145 mmol/L LAB CHEMISTRY METHOD 03/08/2025 11:58 AM [facility] Potassium 3.3(L) 3.5 - 5.5 mmol/L LAB CHEMISTRY METHOD 03/08/2025 11:58 AM [facility] Chloride 104 96 - 110 mmol/L LAB CHEMISTRY METHOD 03/08/2025 11:58 AM [facility] CO2 27 21 - 32 mmol/L LAB CHEMISTRY METHOD 03/08/2025 11:58 AM [facility] Anion Gap 8 3 - 11 LAB CHEMISTRY METHOD 03/08/2025 11:58 AM [facility] Glucose 196(H) 70 - 100 mg/dL LAB CHEMISTRY METHOD 03/08/2025 11:58 AM [facility] BUN 10 5 - 25 mg/dL LAB CHEMISTRY METHOD 03/08/2025 11:58 AM [facility] Creatinine 1.06 0.50 - 1.10 mg/dL LAB CHEMISTRY METHOD 03/08/2025 11:58 AM EDT [facility] eGFR 55(L) >=60 mL/min/1. 73m2 LAB CHEMISTRY METHOD 03/08/2025 11:58 AM EDT [facility] Comment:Calculation based on the Chronic Kidney Disease Epidemiology Collaboration (CKD-EPI) equation refit without adjustment for race. BUN/Creatinine Ratio 9.4 LAB CHEMISTRY METHOD 03/08/2025 11:58 AM EDT [facility] Calcium 9.3 8.5 - 10.5 mg/dL LAB CHEMISTRY METHOD 03/08/2025 11:58 AM EDT [facility] Blood Venous blood specimen / Unknown Venipuncture / Unknown 03/08/2025 11:06 AM EDT 03/08/2025 11:25 AM EDT us Bessy Londono MD LAB BLOOD ORDERABLES Final Resul t [facility] [address] [place] [address], from Last 3 Months or Most Recently Relevant to Health Maintenance Insurance [employer] [facility] Advance Directives Documents on File Type Date Recorded Patient 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
== END 2025-08-14 13:30 | disposition home or self-care (01) ==
LOC: HO.HCS 13:10
PROVIDERS: PCP Internal Medicine; Visit Provider Internal Medicine
DX: I25.10 Atherosclerotic heart disease of native coronary artery without angina pectoris (principal); E11.8 Type 2 diabetes mellitus with unspecified complications; I10 Essential (primary) hypertension; E78.5 Hyperlipidemia, unspecified; I44.0 Atrioventricular block, first degree
CPT/HCPCS: 93010; 99214; G2211

== ENCOUNTER → 2025-08-14 13:08 | Outpatient (BNVA) | payer MEDICARE, OTHER, SELFPAY | PROVIDERS: PCP Internal Medicine; Visit Provider Internal Medicine | DX: I25.10 Atherosclerotic heart disease of native coronary artery without angina pectoris (principal); I44.0 Atrioventricular block, first degree; E11.8 Type 2 diabetes mellitus with unspecified complications; I10 Essential (primary) hypertension; E78.5 Hyperlipidemia, unspecified; Z87.891 Personal history of nicotine dependence | CPT/HCPCS: 93005; 99212 ==

== ENCOUNTER 2025-09-16 08:58 | Outpatient (REF) | payer MEDICARE, OTHER, SELFPAY ==
[2025-09-16 09:22] LABS: MANUAL DIFF FLAG NO
[2025-09-16 09:42] LABS: Hematocrit 39.5 % (37.0-47.0); Hemoglobin 12.9 g/dl (12.0-16.0); Imm Gran Abs Auto 0.02 X10*3/uL (0.00-0.03); Imm Gran Pct Auto 0.3 % (0.0-0.4); Lymphocytes Absolute Auto 2.6 X10*3/uL (1.2-4.9); Mean Corpuscular HGB Conc 32.7 g/dl (31.0-35.0); Mean Corpuscular Hemoglobin 29.1 pg (27.0-33.0); Mean Corpuscular Volume 89.0 fL (80.0-98.0); NRBC Abs Auto 0.000 X10*3/uL (0.0-0.012); NRBC Pct Auto 0.0 /100WBC (0.0-0.2); Platelet Count 259 X10*3/uL (160-400); Red Blood Count 4.44 X10*6/uL (4.20-5.50); White Blood Count 6.5 X10*3/uL (4.8-10.8)
[2025-09-16 09:52] LABS: Appearance Urine Clear; Glucose Urine UA Negative (Negative); PH 5.5 (5.0-9.0); Specific Gravity - Urine 1.025 (1.005-1.025); UMIC TRIGGER UACC YES
[2025-09-16 10:00] LABS: UACC Culture Trigger YES
[2025-09-16 10:18] LABS: Alanine Aminotransferase 33 U/L (0-31); Albumin Level 4.0 g/dL (3.5-5.0); Alkaline Phosphatase 51 U/L (39-117); Anion Gap 17 (12-20); Aspartate Amino Transferase 41 U/L (5-31); Blood Urea Nitrogen 13 mg/dL (9-16); Calcium 8.6 mg/dL (8.4-10.2); Carbon Dioxide 28 mmol/L (22-29); Chloride 102 mmol/L (96-108); Cholesterol 95 mg/dL (<200); Estimated Glomerular Filt Rate 54; HDL Cholesterol 41 mg/dL (>40); Potassium 4.0 mmol/L (3.3-5.1); Sodium 143 mmol/L (135-145); Total Protein 6.8 g/dL (6.5-8.0); Triglycerides 103 mg/dL (<150)
[2025-09-16 10:29] LABS: Free T4 (Free Thyroxine) 1.24 ng/dL (0.71-1.85)
== END 2025-09-16 08:59 | disposition home or self-care (01) ==
LOC: HO.LAB 08:58
PROVIDERS: PCP Internal Medicine
DX: I25.10 Atherosclerotic heart disease of native coronary artery without angina pectoris (principal); E11.69 Type 2 diabetes mellitus with other specified complication; E11.65 Type 2 diabetes mellitus with hyperglycemia; K44.9 Diaphragmatic hernia without obstruction or gangrene; E78.5 Hyperlipidemia, unspecified; E66.9 Obesity, unspecified; E03.9 Hypothyroidism, unspecified; I10 Essential (primary) hypertension; Z79.4 Long term (current) use of insulin; Z13.21 Encounter for screening for nutritional disorder
CPT/HCPCS: 36415; 80053; 80061; 81001; 82306; 83036; 84439; 84443; 85025; 87086

== ENCOUNTER 2025-09-17 10:47 | Outpatient (AMB) | payer MEDICARE, OTHER, SELFPAY ==
--- NOTE | 2025-09-17 10:59 | A.OFFPC_ITS ---
Vital Signs 09/17/25 11:19 Height 5 ft 4 in Weight 180 lb 2 oz BMI 30.9 BP 122/64 Blood Pressure Location Lt brachial Position Sitting Respiration 18 Pulse 73 Pulse Source Pulse Oximeter Temp 96.9 F Temp Source Temporal Artery Scan Pulse Oximetry (%) 96 Oxygen Delivery Method Room Air Intake Visit Reasons: hypothyroidism/DM/HTN Damage Assessor Required: No Accompanied by: Self / Same As Patient Allergies hydrocodone (From VICODIN) Allergy (Unknown, Verified 09/17/25 11:32) HEADACHE oxycodone (OXYCODONE) Allergy (Unknown, Verified 09/17/25 11:32) HIVES procaine (From NOVOCAIN) Allergy (Unknown, Verified 09/17/25 11:32) FAINTED Medication List - Last Reconciled 09/17/25 by CLARE Lovett amitriptyline 25 mg PO DAILY aspirin 81 mg PO DAILY bisacodyl (Dulcolax (bisacodyl)) 10 mg (2 x 5 mg) PO BEDTIME calcium carbonate (Tums) 200 mg PO BID cholecalciferol (vitamin D3) 25 mcg PO DAILY cinnamon bark (Cinnamon) 1,000 mg PO BID esomeprazole magnesium (Nexium) 40 mg PO DAILY fish,bora,flax oils-om3,6,9no1 1,200 mg caps PO gabapentin 600 mg PO DAILY levothyroxine 112 mcg PO DAILY losartan 25 mg PO DAILY metformin 1,000 mg PO BID metoprolol tartrate 12.5 mg (1/2 x 25 mg) PO BID mirabegron ER (Myrbetriq) 25 mg PO DAILY multivitamin 1 tab PO DAILY niacin 50 mg PO BEDTIME semaglutide (Ozempic) 0.25 mg (0.368 mL) subcut QWEEK simvastatin 40 mg PO BEDTIME 90 days Tobacco use date assessed: 09/17/25 Fall risk assessment: 1 Fall in past year Last assessed Fall Risk: 09/17/25 Dental Screening Dental Screen Date: 09/17/25 Did you have a dental visit in the last 12 months?: No Did you have a dental problem in the last 6 months where you did not have access to dental care?: No Was dental information given to patient?: No HPI hypothyroidism/DM/HTN HPI Details The patient is a 75-year-old female presenting for follow up appt She reports shortness of breath and dizziness. The shortness of breath occurs with minimal exertion and is associated with rhonchi in the lungs, though no prior lung issues or chest pain have been reported. Dizziness has recently developed without specific triggers, and there have been no falls or loss of consciousness. The patient has a history of hypertension, diabetes mellitus, hyperlipidemia, and thyroid disorder, all under control. Liver enzymes have shown minor fluctuations but remain within acceptable limits. Preventative care included an influenza vaccination during this visit. [facility] Medical History History of abdominal paracentesis Urinary incontinence UTI symptoms Obesity Elevated TSH Diabetes mellitus with coincident hypertension Hypoglycemia unawareness associated with type 2 diabetes mellitus Type 2 diabetes mellitus with unspecified complications halfway (current) use of insulin Tubular adenoma of colon Hx of esophageal ulcer (~04/2024) Dysphagia Hyperlipidemia associated with type 2 diabetes mellitus Post-menopausal Screening for breast cancer Dizziness Pre-op exam Hiatal hernia (~04/2024) IDDM (insulin dependent diabetes mellitus) Pre-op exam Diabetic polyneuropathy associated with type 2 diabetes mellitus Obesity (BMI 30-39.9) Hypertension Hypothyroidism 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 Surgical History History of hysterectomy History of esophagogastroduodenoscopy (EGD) History of colonoscopy History of repair of hiatal hernia History of cardiac catheterization Hx of hammer toe correction Hx of shoulder surgery Hx of tonsillectomy Hx laparoscopic cholecystectomy Hx of appendectomy Family History Brother Diabetes Father Lung cancer Mother HTN (hypertension) Social History Household Members: Family Housing: House Are you a primary home care rn to a significant other at home: No Do you presently have visiting nurse or other home services: No Alcohol intake: current Alcohol intake frequency: holidays/special occasions only Comment: once q 6 months 1 drink Patient Tobacco Use Status: Former Tobacco user Tobacco use type: Cigarette Years Smoked: 20 1985 e-Cigarette/Vaping Use: Never Used Second Hand Smoke Exposure: Yes service: No Current occupational status: retired Cognitive needs: No Hearing needs: No Vision needs: Yes (Glasses) Questionnaire Thrive Questionnaire Date Thrive assessed: 06/17/25 I am a: Patient What is your living situation today?: I have a steady place to live Within the past 12 months, did the food you bought not last and you didn't have the money to get more?: Never true Within the past 12 months, did you worry whether your food would run out before you got money to buy more?: Never true Do you have trouble paying for medicines?: No Do you have trouble getting transportation to medical appointments?: No Do you have trouble paying your heating and electricity bill?: No Do you have trouble taking care of your child, family member or friend?: No Do you have trouble with day-to-day activities such as bathing, preparing meals, shopping, managing finances, etc.?: No Are you currently unemployed and looking for a job?: No Are you interested in more education?: No Please select the resources that you would like help with: None Currently or been in a relationship where the following occur: No concerns reported THRIVE Score: 0 GHAZAL-7 AMB Questionnaire GHAZAL-7 Date GHAZAL - 7 assessed: 12/18/24 Source: Developed by Drs. Hugh Sanon, Kajal Fuentes, Sam Padgett and colleagues, with an educational melissa from [employer]. Review of Systems Const Denies body aches, Denies chills, Denies fever(s), Denies headache(s) and Denies poor appetite Eyes Reports no additional complaints ENT Denies dysphagia, Reports dizziness (on and off), Denies headache(s) and Denies odynophagia Card Denies chest pain, Denies syncope, Denies edema, Denies irregular heart rhythm, Denies lightheadedness, Denies dyspnea and Reports dyspnea on exertion (minimal) Resp Denies cough, Denies dyspnea and Reports dyspnea on exertion (minimal) GI Denies abdominal pain, Reports constipation (Improves with treatment), Denies dysphagia, Denies diarrhea, Denies nausea, Denies odynophagia and Denies vomiting Reports no additional complaints Musc Denies abnormal gait, Reports arthralgias (Bilateral knees) and Denies joint swelling Skin/Breast Reports system reviewed and no additional complaints, except as documented Neuro Denies Abnormal speech present, Denies abnormal gait, Reports dizziness (on and off), Denies syncope and Denies headache(s) Psych Reports no additional complaints Physical exam (Primary Care) Vital Signs: Last Vital Signs Temp 96.9 F 09/17/25 11:19 Pulse 73 09/17/25 11:19 Resp 18 09/17/25 11:19 BP 122/64 09/17/25 11:19 Pulse Ox 96 09/17/25 11:19 Oxygen Delivery Method Room Air 09/17/25 11:19 BMI result Body Mass Index 30.9 Tobacco/Smoking Status: Tobacco use Status Tobacco use date assessed 09/17/25 09/17/25 11:26 Patient Tobacco Use Status Former Tobacco user 09/17/25 10:59 Tobacco use type Cigarette 09/17/25 10:59 e-Cigarette/Vaping Use Never Used 09/17/25 10:59 Thrive Assessment: Date of Thrive Assessment Date Thrive assessed 06/17/25 09/17/25 10:59 Currently or been in a relationship where the following occur: No concerns reported Const General: healthy appearing, no acute distress, alert and awake Nutritional Appearance: well nourished Orientation/consciousness: oriented to person, oriented to place and oriented to time HENMT Ears: TM's normal bilaterally General nose exam: Normal nasal mucous membranes and turbinates present Eyes Conjunctivae: conjunctivae normal Sclerae: sclerae normal Pupils: Equal, round and reactive pupils present Neck Neck: Yes no lymphadenopathy and Yes no JVD Thyroid: Thyroid normal Carotids: no bruits Resp Effort & Inspection: normal respiratory effort and not tachypneic Auscultation: no crackles, no rales, rhonchi upper bilaterally and lower bilaterally and no wheezes Cardio Rate: regular rate Rhythm: regular rhythm Heart sounds: S1 normal heart sound present, S2 normal heart sound present, no murmurs and normal S1 and S2 GI Palpation (GI): Soft to palpation, nontender, no hepatomegaly and no splenomegaly Auscultation: normal bowel sounds Skin General skin exam: no rashes or lesions noted and dry skin Neuro General: oriented to person, oriented to place and oriented to time Cranial nerves: Yes Equal, round and reactive pupils present Speech: No Abnormal speech present Gait exam (Neuro): Normal gait present Motor exam (neuro): no tremor noted Extrem Right upper extremity: full ROM Left upper extremity: full ROM Right lower extremity: full ROM and knee Details: no tenderness and no swelling; no edema Left lower extremity: full ROM and knee Details: no tenderness and no swelling; no edema Psych Mental Status: mental status grossly normal Speech and movement: Normal speech and movement present Affect: normal affect Attitude: cooperative Thought process: Normal thought process present Results Reviewed Results Reviewed: Laboratory Tests 09/16/25 09/16/25 09:15 09:19 WBC 6.5 RBC 4.44 Hgb 12.9 Hct 39.5 MCV 89.0 MCH 29.1 MCHC 32.7 RDW 13.6 Plt Count 259 MPV 10.3 Sodium 143 Potassium 4.0 Chloride 102 Carbon Dioxide 28 Anion Gap 17 BUN 13 Creatinine 0.99 Estimated GFR 54 Fasting Glucose 103 H Estimat Average Glucose 128 Hemoglobin A1c % 6.1 H Calcium 8.6 D Total Bilirubin 0.4 AST 41 H ALT 33 H Alkaline Phosphatase 51 Total Protein 6.8 Albumin 4.0 Triglycerides 103 Cholesterol 95 LDL Cholesterol, Calc 34 HDL Cholesterol 41 25-OH Vitamin D Total 89.0 TSH 1.45 Free T4 1.24 Urine Color Yellow Urine Appearance Clear Urine pH 5.5 Ur Specific [place] 1.025 Urine Protein 30 (1+) H Urine Glucose (UA) Negative Urine Ketones Trace Urine Blood Negative Urine Nitrite Negative Ur Leukocyte Esterase Small (1+) H Urine RBC 0-2 Urine WBC 6-10 H Ur Squamous Epith Cells 3-5 Urine Bacteria None Seen Hyaline Casts 6-10 Coding Level of Care Code Est Pt Level 4 (93049) Diagnoses Primary osteoarthritis of right knee M17.11 Primary osteoarthritis of left knee M17.12 Essential hypertension I10 Hypertension type: essential hypertension Dyspnea on minimal exertion R06.09 Type 2 diabetes mellitus with hyperglycemia, without long-term current use of insulin E11.65 Diabetes mellitus terminal worker insulin use: without terminal worker use Acquired hypothyroidism E03.9 Hypothyroidism type: acquired Obesity (BMI 30-39.9) E66.9 OAB (overactive bladder) N32.81 Urinary incontinence, unspecified type R32 Urinary Incontinence type: unspecified incontinence Abnormal lung sounds R09.89 Gastroesophageal reflux disease, unspecified whether esophagitis present K21.9 Esophagitis presence: esophagitis presence not specified Time Spent (min) 38 Assessment & Plan Assessment & Plan (1) Primary osteoarthritis of right knee: Code(s): M17.11 - Unilateral primary osteoarthritis, right knee Category: Medical (2) Primary osteoarthritis of left knee: Code(s): M17.12 - Unilateral primary osteoarthritis, left knee Category: Medical (3) Hypertension: Code(s): I10 - Essential (primary) hypertension Category: Medical Qualifiers: Hypertension type: essential hypertension Qualified Code(s): I10 - Essential (primary) hypertension (4) Dyspnea on minimal exertion: Code(s): R06.09 - Other forms of dyspnea Category: Medical (5) Type 2 diabetes mellitus with hyperglycemia: Comment: Dr. Bauer Code(s): E11.65 - Type 2 diabetes mellitus with hyperglycemia Category: Medical Qualifiers: Diabetes mellitus senior care insulin use: without terminal worker use Qualified Code(s): E11.65 - Type 2 diabetes mellitus with hyperglycemia (6) Hypothyroidism: Code(s): E03.9 - Hypothyroidism, unspecified Category: Medical Qualifiers: Hypothyroidism type: acquired Qualified Code(s): E03.9 - Hypothyroidism, unspecified (7) Obesity (BMI 30-39.9): Code(s): E66.9 - Obesity, unspecified Category: Medical (8) OAB (overactive bladder): Code(s): N32.81 - Overactive bladder Category: Medical (9) Urinary incontinence: Code(s): R32 - Unspecified urinary incontinence Category: Medical Qualifiers: Urinary Incontinence type: unspecified incontinence Qualified Code(s): R32 - Unspecified urinary incontinence (10) Abnormal lung sounds: Code(s): R09.89 - Other specified symptoms and signs involving the circulatory and respiratory systems Category: Medical (11) GERD (gastroesophageal reflux disease): Code(s): K21.9 - Gastro-esophageal reflux disease without esophagitis Category: Medical Qualifiers: Esophagitis presence: esophagitis presence not specified Qualified Code(s): K21.9 - Gastro-esophageal reflux disease without esophagitis Plan Plan Patient was informed and verbally consented to the use of an ambient scribe for clinic note documentation during this visit. 1. Shortness Of Breath A chest X-ray has been ordered to investigate the cause of the shortness of breath and abnormal breath sounds. The patient is advised to monitor symptoms and seek emergency care if they worsen. 2. Dizziness The patient is advised to monitor dizziness and report any new symptoms or worsening of the condition. Ensure adequate hydration and rise slowing. The patient on has been ongoing, she is followed by cardiology. Labs have been unremarkable for the most part. 3. Elevated Liver Enzymes Liver enzymes will be monitored for any significant changes, though current levels are not concerning. Continue statin. Limit alcohol/drugs containing tylenonl or acetaminophen/fatty foods 4. Hypertension Blood pressure is currently well-controlled, and no changes to the management plan are necessary at this time. Continue metoprolol tartrate 12.5 mg b.i.d., losartan 25 mg daily 5. Diabetes Mellitus Diabetes management is stable, with recent A1c levels within target range. A1c 6.1% 6. Hyperlipidemia Cholesterol levels are well-managed, with no immediate concerns noted. Continue simvastatin 40 mg at bedtime 7. Thyroid Disorder Thyroid function tests are within normal limits, indicating stable management of the condition. Continue levothyroxine 112 mcg daily 8. Preventative Care: Influenza Vaccination The patient received an influenza vaccination as part of routine preventative care. Reinforced dietary restriction, continue Nexium 40 mg daily Continue gabapentin 600 mg daily for bilateral knee pain Continue Myrbetriq 25 mg daily follow up with Urology as scheduled Discussed dietary modification and activity as tolerated to aid weight loss Orders: Orders Comprehensive Met. Panel 3 Months E03.9 - Hypothyroidism, unspecified, E11.65 - Type 2 diabetes mellitus with hyperglycemia, E11.69 - Type 2 diabetes mellitus with other specified complication, E66.9 - Obesity, unspecified, E78.5 - Hyperlipidemia, unspecified, I10 - Essential (primary) hypertension, I25.10 - Atherosclerotic heart disease of [place] coronary artery without angina pectoris, R06.09 - Other forms of dyspnea, Z01.810 - Encounter for preprocedural cardiovascular examination Free T4 (Free Thyroxine) 3 Months E03.9 - Hypothyroidism, unspecified, E11.65 - Type 2 diabetes mellitus with hyperglycemia, E11.69 - Type 2 diabetes mellitus with other specified complication, E66.9 - Obesity, unspecified, E78.5 - Hyperlipidemia, unspecified, I10 - Essential (primary) hypertension, I25.10 - Atherosclerotic heart disease of [place] coronary artery without angina pectoris, R06.09 - Other forms of dyspnea, Z01.810 - Encounter for preprocedural cardiovascular examination Vitamin D 25-OH Total 3 Months E03.9 - Hypothyroidism, unspecified, E11.65 - Type 2 diabetes mellitus with hyperglycemia, E11.69 - Type 2 diabetes mellitus with other specified complication, E66.9 - Obesity, unspecified, E78.5 - Hyperlipidemia, unspecified, I10 - Essential (primary) hypertension, I25.10 - Atherosclerotic heart disease of [place] coronary artery without angina pectoris, R06.09 - Other forms of dyspnea, Z01.810 - Encounter for preprocedural cardiovascular examination CK, Total+Isoenzymes, Serum Today R06.09 - Other forms of dyspnea, R09.89 - Other specified symptoms and signs involving the circulatory and respiratory systems CRP High Sensitivity Today R06.09 - Other forms of dyspnea, R09.89 - Other specified symptoms and signs involving the circulatory and respiratory systems Erythrocyte Sedimentation Rate Today R06.09 - Other forms of dyspnea, R09.89 - Other specified symptoms and signs involving the circulatory and respiratory systems NT Pro B Type Natriuretic Pept Today R06.09 - Other forms of dyspnea, R09.89 - Other specified symptoms and signs involving the circulatory and respiratory systems XR chest 2V Today R06.09 - Other forms of dyspnea, R09.89 - Other specified symptoms and signs involving the circulatory and respiratory systems Hemoglobin A1c 3 Months E03.9 - Hypothyroidism, unspecified, E11.65 - Type 2 diabetes mellitus with hyperglycemia, E11.69 - Type 2 diabetes mellitus with other specified complication, E66.9 - Obesity, unspecified, E78.5 - Hyperlipidemia, unspecified, I10 - Essential (primary) hypertension, I25.10 - Atherosclerotic heart disease of [place] coronary artery without angina pectoris, R06.09 - Other forms of dyspnea, Z01.810 - Encounter for preprocedural cardiovascular examination Complete Blood Count Auto Diff 3 Months E03.9 - Hypothyroidism, unspecified, E 11.65 - Type 2 diabetes mellitus with hyperglycemia, E11.69 - Type 2 diabetes mellitus with other specified complication, E66.9 - Obesity, unspecified, E78.5 - Hyperlipidemia, unspecified, I10 - Essential (primary) hypertension, I25.10 - Atherosclerotic heart disease of [place] coronary artery without angina pectoris, R06.09 - Other forms of dyspnea, Z01.810 - Encounter for preprocedural cardiovascular examination Lipid Panel 3 Months E03.9 - Hypothyroidism, unspecified, E11.65 - Type 2 diabetes mellitus with hyperglycemia, E11.69 - Type 2 diabetes mellitus with other specified complication, E66.9 - Obesity, unspecified, E78.5 - Hyperlipidemia, unspecified, I10 - Essential (primary) hypertension, I25.10 - Atherosclerotic heart disease of [place] coronary artery without angina pectoris, R06.09 - Other forms of dyspnea, Z01.810 - Encounter for preprocedural cardiovascular examination TSH reflex Free T4 3 Months E03.9 - Hypothyroidism, unspecified, E11.65 - Type 2 diabetes mellitus with hyperglycemia, E11.69 - Type 2 diabetes mellitus with other specified complication, E66.9 - Obesity, unspecified, E78.5 - Hyperlipidemia, unspecified, I10 - Essential (primary) hypertension, I25.10 - Atherosclerotic heart disease of [place] coronary artery without angina pectoris, R06.09 - Other forms of dyspnea, Z01.810 - Encounter for preprocedural cardiovascular examination Patient Instructions: Patient to complete chest x-ray follow up labs for shortness of Breath an abnormal lung sounds. Follow up in 3 months or sooner chronic concerns
[2025-09-17 11:19] VITALS: BP 122/64; PULSE 73; RESP 18; TEMP 36.1; O2SAT 96; BMI 30.9
--- OUTSIDE RECORDS SUMMARY | 2025-09-17 13:10 | XMS_ITS | Clinical Summary ---
Author Organization [facility] Address [address] [place] [address] Phone Care Team Providers Care Bridal Stylist Sales Consultant Name Role Phone Buddy Morrow MD Primary Care Provider [phone] Allergies Active Allergy Reactions Criticality Noted Date Comments Procaine 12/23/2017 Passes out Oxycodone Hives 12/23/2017 Hydrocodone-Acetaminophen Headaches 12/23/2017 Medications MULTIVITAMIN ORAL Take by mouth. Active omeprazole (PRILOSEC) 20 MG capsule Take 20 mg by mouth daily. Active CINNAMON BARK (CINNAMON ORAL) Take 1,000 mg by mouth 2 (two) times a day. Active FISH OIL/FLAX.OIL/E.UT IM/BCURR (FISH,FLAXSEED OIL-E.PRIM-BCURR ORAL) Take 1 capsule [...] VACCINE (1 - 1-dose 75+ series) 2023 INFLUENZA VACCINE (#1) 2025 9, 11/03/2018, 11/15/2016, Additional history exists COVID-19 VACCINE (2 - 2024- season) 2025 02/15/2021 HEPATITIS A VACCINES Aged Out No [...] Routine 12/28/2017 10:40 AM EST Atherosclerosis of mentasta coronary artery without angina pectoris, unspecified whether mentasta or transplanted heart from Last 3 Months or Most Recently Relevant to Health Maintenance Results * (ABNORMAL) Basic metabolic panel (12/28/2017 10:40 AM EST) SODIUM 140 133 - 146 mmol/L [facility] CHLORIDE 98 96 - 108 mmol/L [facility] POTASSIUM 4.4 3.3 - 5.1 mmol/L [facility] CO2 29 21 - 35 mmol/L [facility] BUN 14 6 - 19 mg/dL [facility] CREATININE 1.00 0.5 - 1.5 mg/dL [facility] GLUCOSE 133(H) 70 - 99 mg/dL [facility] CALCIUM 9.0 8.4 - 10.3 mg/dL [facility] EGFR 55(L) 60 - 1,000 mL/min/1.7 3m2 [facility] Comment:Abnormal if <60. If patient is -Ivorian, multiply the result by 1.21. ANION GAP 17 10 - 20 mmol/L [facility] Blood 12/28/2017 10:4 0 AM EST 12/28/2017 10:46 AM EST us Anmol John DO LAB BLOOD ORDERABLES Final Re sult [facility] [address] [place] [address] from Last 3 Months or Most Recently Relevant to Health Maintenance [place] [address] MEDICARE PART A & [place] [address] [place] [address] MEDICARE PART A & [place] [address] [address]ICARE PART [place] [address] MEDICARE PART A & [place] [address] MEDICARE PART A & [place] [address] MEDICARE PART A & [place] [address] MEDICARE PART A & [place] [address] MEDICARE PART A & [place] [address] MEDICARE PART A & [place] [address] Advance Directives For more information, please contact: [phone] (9AM - 5PM [facility], Tuesday-Tuesday) * Full Code (Confirmed) (Latest Code Status on File) Date Activated Date Inactivated Comments 01/03/2018 11:38 AM 01/03/2018 5:47 PM Question Answer Comments Code Discussion Comments: Dr John Care Teams Bridal Stylist Sales Consultant Relationship Specialty Start Date End Date Buddy Morrow MD [address] [place] [address] [place] [address] PCP - General Internal Medicine 12/28/17 Additional Source Comments The information contained in this document represents components of the legal health record. It is not the complete legal health record.[facility]
--- OUTSIDE RECORDS SUMMARY | 2025-09-17 13:10 | XMS_ITS | Encounter Summary ---
Author Organization [facility] Address [address] [place] [address] Phone Care Team Providers Care Medical Scientist Name Role Phone Buddy Morrow MD Primary Care Provider [phone] Encounter Details Date Type Department Care Team (Late st Contact Info) Description 01/03/2018 Procedure Pass [facility]ovascular [facility] Interventional Radiology [address] [place] [address] Social History Tobacco Use Types Packs/Day Years [...] on filedocumented in this encounter Care Teams Medical Scientist Relationship Specialty Start Date End Date Buddy Morrow MD [address] [place] [address] [place] [address] PCP - General Internal Medicine 12/28/17 documented as of this encounter Additional Source Comments The information contained in this document represents components of the legal health record. It is not the complete legal health record.[facility]
--- OUTSIDE RECORDS SUMMARY | 2025-09-17 13:11 | XMS_ITS | Patient Health Record ---
Author Organization [facility] Address [address] [place], [place] [address] Care Team Providers Care Transition Teacher Name Role Phone Chang Diaz Primary Care Provider Benjamin West Unavailable [phone] Allergies Allergen (clinical drug ingredient) Drug/Non Drug [...] Problem Acquired hammer toe of right foot (4572983751191920 ) Other hammer toe(s) (acquired), right foot (M20.41) Active confirmed Response to treatment, Improvemen t Problem Acquired hammer toe of left foot ([id number] ) Other hammer toe(s) (acquired), left foot (M20.42) Active confirmed Response to treatment, Improvemen t Problem Polyneuropathy due to diabetes mellitus type I (634711891) 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 confirmed Vital Signs Blood pressure diastolic 70 mm Hg 07/30/2025 Height 5ft4in in 07/30/2025 Blood pressure systolic 128 mm Hg 07/30/2025 Weight 185 lbs 07/30/2025 BMI 31.75 kg/m2 07/30/2025 Procedures Procedure Date Ordered Date Performed Result Body Sit e 40841-YRFFBRA NAIL, 6 OR MORE 10/09/2024 N/A 26951-VLQY SKIN LESIONS, OVER 4 10/09/2024 N/A 24287-FLQJMBX NAIL, 6 OR MORE 01/15/2025 N/A 37787-AGYR SKIN LESIONS, OVER 4 01/15/2025 N/A 33249-QCRLLIT NAIL, 6 OR MORE 04/23/2025 N/A 61899-HKLP SKIN LESIONS, OVER 4 04/23/2025 N/A 31037-OWMDEUH NAIL, 6 OR MORE 07/30/2025 N/A 91191-FBXB SKIN LESIONS, OVER 4 07/30/2025 N/A Encounters Encounter Location Date Provider Diagnosis [address] [address] 10/09/2024 Benjamin Leti Type 1 diabetes mellitus with diabetic polyneuropathy E10.42 and Tinea unguium B35.[address] [address] 01/15/2025 Benjamin Leti Type 1 diabetes mellitus with diabetic polyneuropathy E10.42 ; Other hammer toe(s) (acquired), right foot M20.41 ; Tinea unguium B35.1 and Other hammer toe(s) (acquired), left foot M20.[address] [address] 04/23/2025 Benjamin Leti Type 1 diabetes mellitus with diabetic polyneuropathy E10.42 and Tinea unguium B35.[address] [address] 07/30/2025 Benjamin Leti Type 1 diabetes mellitus [...] 02/11/2015 Hemoglobin A1c 12/02/2015 Hemoglobin A1c 06/03/2017 20330-RHQLBXX NAIL, 6 OR MORE 10/09/2024 64084-AYWWMBO NAIL, 6 OR MORE 01/15/2025 44595-TLAHEVL NAIL, 6 OR MORE 04/23/2025 61776-YSESLZB NAIL, 6 OR MORE 07/30/2025 96881-ZRVGSFV NAIL, 6 OR MORE 09/12/2020 62270-EBLXBUO NAIL, 6 OR MORE 12/12/2020 63977-IGQKKYO NAIL, 6 OR MORE 03/13/2021 27199-GZYLROC NAIL, 6 OR MORE 06/12/2021 52126-IIXMJWT NAIL, 6 OR MORE 09/18/2021 19122-PIASYTF NAIL, 6 OR MORE 12/18/2021 47786-UEDBZME NAIL, 6 OR MORE 03/23/2022 30267-UHQEYFF NAIL, 6 OR MORE 06/25/2022 52552-TWXJIXL NAIL, 6 OR MORE 09/24/2022 41764-RUKNKLE NAIL, 6 OR MORE 12/24/2022 04494-MRJEVOI NAIL, 6 OR MORE 03/25/2023 69146-RQVBRTQ NAIL, 6 OR MORE 06/24/2023 82907-POJCHCX NAIL, 6 OR MORE 09/27/2023 41199-JNHHHUA NAIL, 6 OR MORE 12/27/2023 49578-JRFZPFO NAIL, 6 OR MORE 03/27/2024 27473-SNOALYI NAIL, 6 OR MORE 06/26/2024 73236-WZYUHWL NAIL, 6 OR MORE 08/22/2015 15871-SKAIMGU NAIL, 6 OR MORE 05/16/2015 92761-ZJHYROW NAIL, 6 OR MORE 02/11/2015 70294-ZLLPJQB NAIL, 6 OR MORE 11/02/2013 62702-GTKDDNI NAIL, 6 OR MORE 02/01/2014 32547-STNHHWO NAIL, 6 OR MORE 05/10/2014 98680-LMKRENP NAIL, 6 OR MORE 08/13/2014 01272-PVQERLP NAIL, 6 OR MORE 11/12/2014 72969-VIMWNIT NAIL, 6 OR MORE 07/27/2011 64788-UKXYVSB NAIL, 6 OR MORE 10/15/2011 03238-OZRZTGB NAIL, 6 OR MORE 01/14/2012 15428-HDQTUPG NAIL, 6 OR MORE 04/11/2012 69729-JOVQIUP NAIL, 6 OR MORE 07/28/2012 77569-OAOCUKO NAIL, 6 OR MORE 10/13/2012 31057-TRJVTAZ NAIL, 6 OR MORE 01/12/2013 14826-QUWYFYM NAIL, 6 OR MORE 04/13/2013 38796-GKMEEMB NAIL, 6 OR MORE 08/03/2013 77333-CVNYWSV NAIL, 6 OR MORE 12/02/2015 18294-MEYAHMT NAIL, 6 OR MORE 03/02/2016 89548-JRNMCIY NAIL, 6 OR MORE 06/11/2016 30817-UAEDJBL NAIL, 6 OR MORE 09/10/2016 72795-BRSJPWK NAIL, 6 OR MORE 12/10/2016 98983-JDTBQYQ NAIL, 6 OR MORE 03/04/2017 09668-CMTIZET NAIL, 6 OR MORE 06/07/2017 74409-JJXSZUC NAIL, 6 OR MORE 09/06/2017 51348-QFEQEPI NAIL, 6 OR MORE 12/09/2017 33797-ODDRHJP NAIL, 6 OR MORE 03/10/2018 63215-WRDXPPT NAIL, 6 OR MORE 06/13/2018 30333-UTLWYIV NAIL, 6 OR MORE 09/12/2018 19544-OWKVILB NAIL, 6 OR MORE 12/26/2018 99573-RJVYGTD NAIL, 6 OR MORE 03/27/2019 87073-FSRQVZG NAIL, 6 OR MORE 06/26/2019 81224-AVRNHYY NAIL, 6 OR MORE 09/25/2019 43143-UBEOZEW NAIL, 6 OR MORE 12/25/2019 44163-HWMNKIO NAIL, 6 OR MORE 06/13/2020 33142- Debride <25 sq cm 08/03/2013 55809-EVQZ SKIN LESIONS, OVER 4 11/02/20 13 52885-CHYS SKIN LESIONS, OVER 4 11/12/20 14 81340-FUZV SKIN LESIONS, OVER 4 08/13/20 14 97892-IRKX SKIN LESIONS, OVER 4 05/10/20 14 79192-ASAQ SKIN LESIONS, OVER 4 02/02/20 14 68309-EMGA SKIN LESIONS, OVER 4 02/12/20 15 31211-WXXJ SKIN LESIONS, OVER 4 05/16/20 15 11280-RTFM SKIN LESIONS, OVER 4 08/22/20 15 52597-OXGO SKIN LESIONS, OVER 4 12/02/19 16 40629-WARN SKIN LESIONS, OVER 4 06/13/20 20 93994-FQFR SKIN LESIONS, OVER 4 12/25/19 20 68981-TDTS SKIN LESIONS, OVER 4 09/25/20 19 51967-BXQM SKIN LESIONS, OVER 4 06/26/20 19 75152-GRRM SKIN LESIONS, OVER 4 03/27/20 19 26398-BNYH SKIN LESIONS, OVER 4 12/26/19 19 09217-IKQL SKIN LESIONS, OVER 4 09/12/20 18 51331-PDHS SKIN LESIONS, OVER 4 06/13/20 18 04230-YBQC SKIN LESIONS, OVER 4 03/10/20 18 54783-COHS SKIN LESIONS, OVER 4 12/09/19 18 61024-NLAV SKIN LESIONS, OVER 4 09/06/20 17 00211-LPZA SKIN LESIONS, OVER 4 03/04/20 17 41194-BWGH SKIN LESIONS, OVER 4 06/07/20 17 24776-WQLQ SKIN LESIONS, OVER 4 12/10/19 17 25080-JPJZ SKIN LESIONS, OVER 4 09/10/20 16 08636-LLJI SKIN LESIONS, OVER 4 06/11/20 16 40642-GFTP SKIN LESIONS, OVER 4 03/02/20 16 60787-ZBNI SKIN LESIONS, OVER 4 06/26/20 24 90554-QEZI SKIN LESIONS, OVER 4 03/27/20 39104-MNSW SKIN LESIONS, OVER 4 12/27/19 60574-YYFU SKIN LESIONS, OVER 4 09/27/20 61538-ZMKA SKIN LESIONS, OVER 4 06/24/20 22653-TBLK SKIN LESIONS, OVER 4 03/25/20 45806-AOOJ SKIN LESIONS, OVER 4 12/24/19 76349-GCPW SKIN LESIONS, OVER 4 09/24/20 79040-OSSI SKIN LESIONS, OVER 4 06/25/20 10066-PSMZ SKIN LESIONS, OVER 4 03/23/20 68795-DJJU SKIN LESIONS, OVER 4 12/18/19 28886-DRIW SKIN LESIONS, OVER 4 09/18/20 49032-FFHI SKIN LESIONS, OVER 4 06/12/20 73593-LRPC SKIN LESIONS, OVER 4 03/13/20 25889-CPLN SKIN LESIONS, OVER 4 12/12/19 65004-UVNH SKIN LESIONS, OVER 4 09/12/20 33816-YJJQ SKIN LESIONS, OVER 4 07/30/20 04206-GQUL SKIN LESIONS, OVER 4 04/23/20 75335-ZMQO SKIN LESIONS, OVER 4 01/15/20 25 40990-IULN SKIN LESIONS, OVER 4 10/09/20 24 27360-KTTL SKIN LESIONS, 2 TO 4 07/27/20 11 53785-UBNK SKIN LESIONS, 2 TO 4 04/13/20 13 35315-BODF SKIN LESIONS, 2 TO 4 01/12/20 13 83297-IQKV SKIN LESIONS, 2 TO 4 10/13/20 12 07389-SYXO SKIN LESIONS, 2 TO 4 07/28/20 12 26789-VJTD SKIN LESIONS, 2 TO 4 04/11/20 12 09625-ROKS SKIN LESIONS, 2 TO 4 01/14/20 12 56123-JVRS SKIN LESIONS, 2 TO 4 10/15/20 11 HEMOGLOBIN A1C (GLYCOHEMOGLOBIN) 020 Next Appt Details Provider Name:Benjamin Landeros , 11/15/2025 12:15:00 PM, [address] [place], [address], Insurance Providers Payer Name Payer Address Payer Phone Subscriber Number Group Number Insured Name Patient Relationship to Insured Coverage Start Date Coverage End Date [employer] Medicare Adv-54429 [address] [address] [place] [address] [id number] [address] Henry Self - patient is the insured [facility] Claims [facility] Office of Community Care [address] [address] [place] [address] [id number] Miriam Henry Self - patient is the [...] [facility], [facility] 05/17[facility]24 [facility] [place] [facility] up 02/27/2021 [facility]- Hiatal hernia flare up 05/21/19 [facility] virus 11/21/2017
--- OUTSIDE RECORDS SUMMARY | 2025-09-17 13:11 | XMS_ITS | Clinical Summary ---
Author Organization [facility] Address [address] [place] [address] Phone Care Team Providers Care Passenger Booking Clerk Name Role Phone Chang Diaz Poonam PRISM INSPECTOR Primary Care Provider [phone] Allergies Active Allergy Reactions Criticality Noted Date [...] Date DM2 (diabetes mellitus, type 2) ([facility] V24, CM /[facility] V28) HTN (hypertension) Hypercholesterolemia Hypothyroid Resolved Problems Problem Noted Date Diagnosed Date Resolved Date Endometrial cancer ([facility] V24, [facility] V28) 03/05/20 25 03/11/2025 Surgical History Surgery Date Site/Laterality Comments CHOLECYSTECTOMY [...] Coronary atherosclerosis of unspecified type of vessel, [place]monak or graft 07/25/2012 HTN (hypertension) 07/25/2012 Hypercholesterolemia [...] Safety Answer Date Record ed Physical Abuse Unrecognized value 03/11/2025 Verbal Abuse Unrecognized value 03/11/2025 Comments No Sex and Gender Information [...] Description 11/12/2025 1:00 PM EST Office Visit [facility] Care [facility] [address] [place] [address] Bessy Londono MD [address] [place] [address] Health Maintenance Due Date Last Done Comments [...] 03/08/2025 11:06 AM EDT Endometrial cancer ([facility] V24, [facility] V28) from Last 3 Months or Most Recently Relevant to Health Maintenance Results * (ABNORMAL) Basic metabolic panel (03/08/2025 11:06 AM EDT) Pathologist [facility] Sodium 139 133 - 145 mmol/L LAB [...] METHOD 03/08/2025 11:58 AM [facility] eGFR 55(L) >=60 mL/min/1. 73m2 LAB CHEMISTRY METHOD 03/08/2025 11:58 AM [facility] Comment:Calculation based on the Chronic Kidney Disease Epidemiology Collaboration (CKD-EPI) equation refit without adjustment for race. BUN/Creatinine Ratio 9.4 LAB CHEMISTRY METHOD 03/08/2025 11:58 AM EDT [facility] Calcium 9.3 8.5 - 10.5 mg/dL LAB CHEMISTRY METHOD 03/08/2025 11:58 AM EDT [facility] Blood Venous blood specimen / Unknown Venipuncture / Unknown 03/08/2025 11:06 AM EDT 03/08/2025 11:25 AM EDT us Bessy Londono MD LAB BLOOD ORDERABLES Final Resul t [facility] [address] [place] [address], from Last 3 Months or Most Recently Relevant to Health [place] [id number] [employer] [facility]IC[facility] Advance Directives Documents on File Type Date Recorded Patient Visual Merchandising Director Expl anation Power of Beating Machine Operator 03/11/2025 12:58 PM HCP Power of Beating Machine Operator 03/11/2025 12:47 PM HEAL TH CARE PROXY(NOT SIGNED) Care Teams Passenger Booking Clerk Relationship Specialty Start Date End Date Chang Diaz FNP [address] [place] [phone] PCP - General Family Medicine 05/21/25
--- OUTSIDE RECORDS SUMMARY | 2025-09-17 13:11 | XMS_ITS | Encounter Summary ---
Author Organization [facility] Address [address] [place] [address] Phone Care Team Providers Care Plant Reliability Engineer Name Role Phone Buddy Morrow MD Primary Care Provider [phone] Encounter Details Date Type Department Care Team (Latest Contact Info) Description 12/28/2017 Transcribe Orders [facility] [address] [place] [address] Anmol John, DO [address] [place] [address] [email or web address] Atherosclerosis of k[place] coronary artery without angina pectoris, unspecified whether kake or transplanted heart (Primary Dx) Social History [...] EST) SODIUM 140 133 - 146 mmol/L [facility] CHLORIDE 98 96 - 108 mmol/L [facility] POTASSIUM 4.4 3.3 - 5.1 mmol/L [facility] CO2 29 21 - 35 mmol/L [facility] BUN 14 6 - 19 mg/dL [facility] CREATININE 1.00 0.5 - 1.5 mg/dL [facility] GLUCOSE 133(H) 70 - 99 mg/dL [facility] CALCIUM 9.0 8.4 - 10.3 mg/dL [facility] EGFR 55(L) 60 - 1,000 mL/min/1.7 3m2 [facility] Comment:Abnormal if <60. If patient is -Turkmen, multiply the result by 1.21. ANION GAP 17 10 - 20 mmol/L [facility] Blood 12/28/2017 10:4 0 AM EST 12/28/2017 10:46 AM EST us Anmol John DO LAB BLOOD ORDERABLES Final Re sult [address] [address] * (ABNORMAL) CBC (12/28/2017 10:40 AM EST) WBC 6.49 3.40 - 11.20 K/uL [facility] RBC 4.91(H) 3.80 - 4.80 M/uL [facility] HGB 14.0 12.0 - 15.0 g/dL [facility] HCT 41.8 36.0 - 46.0 % [facility] PLT 231 130 - 400 K/uL [facility] MCV 85.1 79.0 - 98.0 fL [facility] MCH 28.5 27.0 - 34.8 pg [facility] MCHC 33.5 31.5 - 36.0 g/dL [facility] RDW 12.2 10.8 - 14.6 % [facility] MPV 11.0 9.4 - 12.4 fl [facility] NRBC 0.00 /100 WBCs [facility] ABSOLUTE NRBC 0.00 K/uL [facility] Blood 12/28/2017 10:4 0 AM EST 12/28/2017 10:46 AM EST us Anmol John DO LAB BLOOD ORDERABLES Final Re sult [address] [address] * PT-INR (12/28/2017 10:40 AM EST) PT 11.8 10.2 - 12.9 sec [facility] INR 1.0 0.9 - 1.1 [facility] Comment:Therapeutic range fo r oral Vitamin K antagonists: 2.0-3.5 Blood 12/28/2017 10:4 0 AM EST 12/28/2017 10:46 AM EST us Anmol John DO LAB BLOOD ORDERABLES Final Re sult [address] [address] documented in this encounter Visit Diagnoses Diagnosis Atherosclerosis of kake coronary artery without angina pectoris, unspecified whether kake or transplanted heart- Primary documented in this encounter Care Teams Plant Reliability Engineer Relationship Specialty Start Date End Date Buddy Morrow MD [address] [place] [address] [place] [address] PCP - General Internal Medicine 12/28/17 documented as of this encounter Additional Source Comments The information contained in this document represents components of the legal health record. It is not the complete legal health record.[facility]
== END 2025-09-17 11:54 | disposition home or self-care (01) ==
LOC: HO.HMCH 10:49
DX: E11.65 Type 2 diabetes mellitus with hyperglycemia (principal); M17.0 Bilateral primary osteoarthritis of knee; Z68.30 Body mass index [BMI] 30.0-30.9, adult; R06.09 Other forms of dyspnea; E66.9 Obesity, unspecified; I10 Essential (primary) hypertension; E03.9 Hypothyroidism, unspecified; N32.81 Overactive bladder; R32 Unspecified urinary incontinence; R09.89 Other specified symptoms and signs involving the circulatory and respiratory systems; K21.9 Gastro-esophageal reflux disease without esophagitis

== ENCOUNTER → 2025-09-17 10:47 | Outpatient (BNVA) | payer MEDICARE, OTHER, SELFPAY | DX: K21.9 Gastro-esophageal reflux disease without esophagitis (principal); I10 Essential (primary) hypertension; E03.9 Hypothyroidism, unspecified; R42 Dizziness and giddiness; M17.0 Bilateral primary osteoarthritis of knee; E11.65 Type 2 diabetes mellitus with hyperglycemia; E66.9 Obesity, unspecified; N32.81 Overactive bladder; R32 Unspecified urinary incontinence; R09.89 Other specified symptoms and signs involving the circulatory and respiratory systems; R79.89 Other specified abnormal findings of blood chemistry; Z68.30 Body mass index [BMI] 30.0-30.9, adult | CPT/HCPCS: 99212 ==

== ENCOUNTER 2025-09-20 10:13 | Outpatient (REF) | payer MEDICARE, OTHER, SELFPAY ==
--- NOTE | ~2025-09-20 | XR_ITS ---
EXAMINATION: XR CHEST CLINICAL INFORMATION: R09.89 - Other specified symptoms and signs involving the circulatory an... COMPARISON: X-ray 02/21/2025 TECHNIQUE: 2 views of the chest were obtained. FINDINGS: Heart size normal. Stable left hemidiaphragm elevation. Hazy opacities in the medial right lung base. No dense consolidation. No effusion. Stable pulmonary vascularity. Possible hiatal hernia. No pneumothorax. Thoracic spine degeneration. XR/XR chest 2V IMPRESSION: Right basilar hazy atelectasis/infiltrate. Electronically signed by: Valdez Rosenthal MD 09/20/2025 10:49 AM EDT
[2025-09-20 11:30] LABS: NT Pro B Type Natriuretic Pept 139.0 pg/mL (<300)
--- OUTSIDE RECORDS SUMMARY | 2025-09-20 11:40 | XMS_ITS | Clinical Summary ---
Author Organization [facility] Address [address] [place] [address] Phone Care Team Providers Care Lawn Specialist Name Role Phone Buddy Morrow MD Primary Care Provider [phone] Allergies Active Allergy Reactions Criticality Noted Date Comments Procaine 12/23/2017 Passes out Oxycodone Hives 12/23/2017 Hydrocodone-Acetaminophen Headaches 12/23/2017 Medications MULTIVITAMIN ORAL Take by mouth. Active omeprazole (PRILOSEC) 20 MG capsule Take 20 mg by mouth daily. Active CINNAMON BARK (CINNAMON ORAL) Take 1,000 mg by mouth 2 (two) times a day. Active FISH OIL/FLAX.OIL/E.NM IM/BCURR (FISH,FLAXSEED OIL-E.PRIM-BCURR ORAL) Take 1 capsule [...] Routine 12/28/2017 10:40 AM EST Atherosclerosis of [place] coronary artery without angina pectoris, unspecified whether [place] or transplanted heart from Last 3 Months or Most Recently Relevant to Health Maintenance Results * (ABNORMAL) Basic metabolic panel (12/28/2017 10:40 AM EST) SODIUM 140 133 - 146 mmol/L [facility] CHLORIDE 98 96 - 108 mmol/L [facility] POTASSIUM 4.4 3.3 - 5.1 mmol/L [facility] CO2 29 21 - 35 mmol/L [facility] BUN 14 6 - 19 mg/dL [facility] CREATININE 1.00 0.5 - 1.5 mg/dL [facility] GLUCOSE 133(H) 70 - 99 mg/dL [facility] CALCIUM 9.0 8.4 - 10.3 mg/dL [facility] EGFR 55(L) 60 - 1,000 mL/min/1.7 3m2 [facility] Comment:Abnormal if <60. If patient is -Spanish, multiply the result by 1.21. ANION GAP 17 10 - 20 mmol/L [facility] Blood 12/28/2017 10:4 0 AM EST 12/28/2017 10:46 AM EST us Anmol John DO LAB BLOOD ORDERABLES Final Re sult [facility] [address] [place] [address] from Last 3 Months or Most Recently Relevant to Health [place] [address] MEDICARE [address] [place] [address] [place] [address] [address] [place] [address] MEDICARE PART [address] [place] [address] MEDICARE PART A & [place] [address] MEDICARE PART A & [place] [address] MEDICARE PART A & [place] [address] MEDICARE PART A & [place] [address] MEDICARE PART A & [place] [address] MEDICARE PART A & [place] [address] Advance Directives For more information, please contact: [phone] (9AM - 5PM [facility], Tuesday-Tuesday) * Full Code (Confirmed) (Latest Code Status on File) Date Activated Date Inactivated Comments 01/03/2018 11:38 AM 01/03/2018 5:47 PM Question Answer Comments Code Discussion Comments: Dr John Care Teams Lawn Specialist Relationship Specialty Start Date End Date Buddy Morrow MD [address] [place] [address] [place] [address] PCP - General Internal Medicine 12/28/17 Additional Source Comments The information contained in this document represents components of the legal health record. It is not the complete legal health record.[facility]
--- OUTSIDE RECORDS SUMMARY | 2025-09-20 11:40 | XMS_ITS | Encounter Summary ---
Author Organization [facility] Address [address] [place] [address] Phone Care Team Providers Care Manager Sports Name Role Phone Buddy Morrow MD Primary Care Provider [phone] Encounter Details Date Type Department Care Team (Late st Contact Info) Description 01/03/2018 Procedure Pass [facility] [address] [place] [address] Social History Tobacco Use Types Packs/Day Years [...] on filedocumented in this encounter Care Teams Manager Sports Relationship Specialty Start Date End Date Buddy Morrow MD [address] [place] [address] [place] [address] PCP - General Internal Medicine 12/28/17 documented as of this encounter Additional Source Comments The information contained in this document represents components of the legal health record. It is not the complete legal health record.[facility]
--- OUTSIDE RECORDS SUMMARY | 2025-09-20 11:40 | XMS_ITS | Patient Health Record ---
[facility] Organization [facility] Address [address] [facility] [place], [place] [address] Care Team Providers Care Machinery Dismantler Name Role Phone Chang Diaz Primary Care Provider Benjamin West Unavailable [phone] Allergies Allergen (clinical drug ingredient) Drug/Non Drug [...] Problem Acquired hammer toe of right foot (8103350879975253 ) Other hammer toe(s) (acquired), right foot (M20.41) Active confirmed Response to treatment, Improvemen t Problem Acquired hammer toe of left foot (5970165277889567 ) Other hammer toe(s) (acquired), left foot (M20.42) Active confirmed Response to treatment, Improvemen t Problem Polyneuropathy due to diabetes mellitus type I (909891557) 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 confirmed Vital Signs Blood pressure diastolic 70 mm Hg 07/30/2025 Height 5ft4in in 07/30/2025 Blood pressure systolic 128 mm Hg 07/30/2025 Weight 185 lbs 07/30/2025 BMI 31.75 kg/m2 07/30/2025 Procedures Procedure Date Ordered Date Performed Result Body Sit e 41541-KFJRVEH NAIL, 6 OR MORE 10/09/2024 N/A 37313-RYBB SKIN LESIONS, OVER 4 10/09/2024 N/A 93293-GQTWZER NAIL, 6 OR MORE 01/15/2025 N/A 83943-WQFX SKIN LESIONS, OVER 4 01/15/2025 N/A 84197-BGFJTMY NAIL, 6 OR MORE 04/23/2025 N/A 91936-SYTO SKIN LESIONS, OVER 4 04/23/2025 N/A 60889-LHOEFRA NAIL, 6 OR MORE 07/30/2025 N/A 36781-AHZF SKIN LESIONS, OVER 4 07/30/2025 N/A Encounters Encounter Location Date Provider Diagnosis [address] [address] 10/09/2024 Benjamin Leti Type 1 diabetes mellitus with diabetic polyneuropathy E10.42 and Tinea unguium B35.[address] [address] 01/15/2025 Benjamin Leti Type 1 diabetes mellitus with diabetic polyneuropathy E10.42 ; Other hammer toe(s) (acquired), right foot M20.41 ; Tinea unguium B35.1 and Other hammer toe(s) (acquired), left foot M20.[address] [address] 04/23/2025 Benjamin Leti Type 1 diabetes mellitus with diabetic polyneuropathy E10.42 and Tinea unguium B35.[address] [address] 07/30/2025 Benjamin Leti Type 1 diabetes mellitus [...] 02/11/2015 Hemoglobin A1c 12/02/2015 Hemoglobin A1c 06/03/2017 68224-JSDYJAG NAIL, 6 OR MORE 10/09/2024 28659-QFZSUDZ NAIL, 6 OR MORE 01/15/2025 80923-JLWZTYQ NAIL, 6 OR MORE 04/23/2025 98770-RQTPNPE NAIL, 6 OR MORE 07/30/2025 84857-URRRNUF NAIL, 6 OR MORE 09/12/2020 58712-SNKVMSV NAIL, 6 OR MORE 12/12/2020 17046-YPCTDAH NAIL, 6 OR MORE 03/13/2021 14661-IUVWBXU NAIL, 6 OR MORE 06/12/2021 21424-ALRNUTG NAIL, 6 OR MORE 09/18/2021 21311-JGRIKEG NAIL, 6 OR MORE 12/18/2021 64533-LGAEPKU NAIL, 6 OR MORE 03/23/2022 56406-RNONWLR NAIL, 6 OR MORE 06/25/2022 64044-EVSEYQR NAIL, 6 OR MORE 09/24/2022 11457-QLJSCPL NAIL, 6 OR MORE 12/24/2022 43839-OAHNGZW NAIL, 6 OR MORE 03/25/2023 02320-KXYJRCD NAIL, 6 OR MORE 06/24/2023 02890-KEZSBYI NAIL, 6 OR MORE 09/27/2023 09804-IODKBQH NAIL, 6 OR MORE 12/27/2023 00232-QOBNISB NAIL, 6 OR MORE 03/27/2024 45182-JDQZBZQ NAIL, 6 OR MORE 06/26/2024 52047-IYYDPSV NAIL, 6 OR MORE 08/22/2015 63761-CHHHJYE NAIL, 6 OR MORE 05/16/2015 80656-NOPEVMH NAIL, 6 OR MORE 02/11/2015 05296-AHUVVUX NAIL, 6 OR MORE 11/02/2013 40550-JKTWWML NAIL, 6 OR MORE 02/01/2014 43809-OBZVTSW NAIL, 6 OR MORE 05/10/2014 64789-QNFBAVC NAIL, 6 OR MORE 08/13/2014 86134-PUCHQIJ NAIL, 6 OR MORE 11/12/2014 24597-IKCQMVS NAIL, 6 OR MORE 07/27/2011 80741-XDMKWQI NAIL, 6 OR MORE 10/15/2011 09272-RBNZNGI NAIL, 6 OR MORE 01/14/2012 44222-HRSWDUR NAIL, 6 OR MORE 04/11/2012 55202-JBWYUUB NAIL, 6 OR MORE 07/28/2012 11480-WXMSRSD NAIL, 6 OR MORE 10/13/2012 95201-PMXPJOH NAIL, 6 OR MORE 01/12/2013 14039-HRFBDJC NAIL, 6 OR MORE 04/13/2013 94278-NHABLCZ NAIL, 6 OR MORE 08/03/2013 05682-OSJNZQY NAIL, 6 OR MORE 12/02/2015 38986-YYSXQZU NAIL, 6 OR MORE 03/02/2016 21752-CMNAHVS NAIL, 6 OR MORE 06/11/2016 46245-KIGIZYW NAIL, 6 OR MORE 09/10/2016 14773-TLONQRM NAIL, 6 OR MORE 12/10/2016 69943-CTFBUDX NAIL, 6 OR MORE 03/04/2017 78850-RSTFRFH NAIL, 6 OR MORE 06/07/2017 54758-DWKYRUB NAIL, 6 OR MORE 09/06/2017 89877-ZSHVQUS NAIL, 6 OR MORE 12/09/2017 45762-VCNKEKI NAIL, 6 OR MORE 03/10/2018 50834-IIAXNXH NAIL, 6 OR MORE 06/13/2018 38644-FOHEHGH NAIL, 6 OR MORE 09/12/2018 83569-SWAKEEE NAIL, 6 OR MORE 12/26/2018 05747-VXHXSFN NAIL, 6 OR MORE 03/27/2019 89974-KYBAGHL NAIL, 6 OR MORE 06/26/2019 45595-FTWKXFS NAIL, 6 OR MORE 09/25/2019 32138-TREIUPP NAIL, 6 OR MORE 12/25/2019 40216-CIWIRJX NAIL, 6 OR MORE 06/13/2020 93895- Debride <25 sq cm 08/03/2013 75404-BAUG SKIN LESIONS, OVER 4 11/02/20 13 46186-KQGT SKIN LESIONS, OVER 4 11/12/20 14 76617-ATQO SKIN LESIONS, OVER 4 08/13/20 14 72277-NHYI SKIN LESIONS, OVER 4 05/10/20 14 00337-OSBN SKIN LESIONS, OVER 4 02/02/20 14 72624-UPRL SKIN LESIONS, OVER 4 02/12/20 15 50356-YNNP SKIN LESIONS, OVER 4 05/16/20 15 23764-UMNA SKIN LESIONS, OVER 4 08/22/20 15 82512-LPIU SKIN LESIONS, OVER 4 12/02/19 16 60747-YAYM SKIN LESIONS, OVER 4 06/13/20 20 58073-KREW SKIN LESIONS, OVER 4 12/25/19 20 62929-NLDD SKIN LESIONS, OVER 4 09/25/20 19 62692-DZCD SKIN LESIONS, OVER 4 06/26/20 19 18205-DAFL SKIN LESIONS, OVER 4 03/27/20 19 47303-MUAP SKIN LESIONS, OVER 4 12/26/19 19 16477-YQKH SKIN LESIONS, OVER 4 09/12/20 18 51063-LHLR SKIN LESIONS, OVER 4 06/13/20 18 44753-ZHIK SKIN LESIONS, OVER 4 03/10/20 18 24615-MZFH SKIN LESIONS, OVER 4 12/09/19 18 97690-GVDS SKIN LESIONS, OVER 4 09/06/20 17 63274-COPJ SKIN LESIONS, OVER 4 03/04/20 17 80618-UFLX SKIN LESIONS, OVER 4 06/07/20 17 43109-WNWI SKIN LESIONS, OVER 4 12/10/19 17 26442-WBAN SKIN LESIONS, OVER 4 09/10/20 16 65161-HBLY SKIN LESIONS, OVER 4 06/11/20 16 74176-GKVP SKIN LESIONS, OVER 4 03/02/20 16 00222-NYUQ SKIN LESIONS, OVER 4 06/26/20 24 14824-WZRQ SKIN LESIONS, OVER 4 03/27/20 53674-SXNV SKIN LESIONS, OVER 4 12/27/19 93534-HTZR SKIN LESIONS, OVER 4 09/27/20 11289-HJXZ SKIN LESIONS, OVER 4 06/24/20 73837-MZTY SKIN LESIONS, OVER 4 03/25/20 36957-EXIA SKIN LESIONS, OVER 4 12/24/19 08935-ETBT SKIN LESIONS, OVER 4 09/24/20 58334-HYNW SKIN LESIONS, OVER 4 06/25/20 65576-OCZY SKIN LESIONS, OVER 4 03/23/20 35411-PBFO SKIN LESIONS, OVER 4 12/18/19 16395-JNHO SKIN LESIONS, OVER 4 09/18/20 91904-CDCI SKIN LESIONS, OVER 4 06/12/20 93925-LZSA SKIN LESIONS, OVER 4 03/13/20 56683-LXVB SKIN LESIONS, OVER 4 12/12/19 79823-WUIY SKIN LESIONS, OVER 4 09/12/20 42727-UMOW SKIN LESIONS, OVER 4 07/30/20 06507-GUUV SKIN LESIONS, OVER 4 04/23/20 91373-BHFB SKIN LESIONS, OVER 4 01/15/20 25 67417-DBHG SKIN LESIONS, OVER 4 10/09/20 24 34596-ZZDY SKIN LESIONS, 2 TO 4 07/27/20 11 19995-KAUA SKIN LESIONS, 2 TO 4 04/13/20 13 10311-MKCZ SKIN LESIONS, 2 TO 4 01/12/20 13 92230-GIFW SKIN LESIONS, 2 TO 4 10/13/20 12 48081-UCVW SKIN LESIONS, 2 TO 4 07/28/20 12 35834-OWVM SKIN LESIONS, 2 TO 4 04/11/20 12 56709-SIBO SKIN LESIONS, 2 TO 4 01/14/20 12 48297-HZDW SKIN LESIONS, 2 TO 4 10/15/20 11 HEMOGLOBIN A1C (GLYCOHEMOGLOBIN) 020 Next Appt Details Provider Name:Benjamin Landeros , 11/15/2025 12:15:00 PM, [address] [place], [address], Insurance Providers Payer Name Payer Address Payer Phone Subscriber Number Group Number Insured Name Patient Relationship to Insured Coverage Start Date Coverage End Date [employer] Medicare Adv-[id number] [address] [address] [place] [address] [id number] Miriam Henry Self - patient is the insured [facility] Claims [facility] Office of Community Care [address] [address] [place] [address] [id number] Miriam Henry Self - patient is the [...] hiatal hernia surgery, esophagus surgery 05/17/24 [facility]-Hiatal Hernia flare up 02/27/2021 [facility]- Hiatal hernia flare up 05/21/19 [facility] virus 11/21/2017
--- OUTSIDE RECORDS SUMMARY | 2025-09-20 11:40 | XMS_ITS | Clinical Summary ---
Author Organization [facility] Address [address] [place] [address] Phone Care Team Providers Care Tubing Mill Operator Name Role Phone Chang Diaz Poonam MEDIA CENTER ASSISTANT Primary Care Provider Allergies Active Allergy Reactions [...] Diagnosed Date DM2 (diabetes mellitus, type 2) ([facility] V24, CM /[facility] V28) HTN (hypertension) Hypercholesterolemia Hypothyroid Resolved Problems Problem Noted Date Diagnosed Date Resolved Date Endometrial cancer ([facility] V24, [facility] V28) 03/05/20 25 03/11/2025 Surgical History [...] Coronary atherosclerosis of unspecified type of vessel, port gamble or graft 07/25/2012 HTN (hypertension) 07/25/2012 Hypercholesterolemia [...] Description 11/12/2025 1:00 PM EST Office Visit [facility] Care [facility] [address] [place] [address] Bessy Londono MD [address] [place] [address] Health Maintenance Due Date Last Done Comments [...] Routine 03/08/2025 11:06 AM EDT Endometrial cancer ([facility] V24, [facility] V28) from Last 3 Months or Most Recently Relevant to Health Maintenance Results * (ABNORMAL) Basic metabolic panel (03/08/2025 11:06 AM EDT) Pathologist [facility] Sodium 139 133 - 145 mmol/L LAB CHEMISTRY METHOD 03/08/2025 11:58 AM [facility] Potassium 3.3(L) 3.5 - 5.5 mmol/L LAB CHEMISTRY METHOD 03/08/2025 11:58 AM [facility] Chloride 104 96 - 110 mmol/L LAB CHEMISTRY METHOD 03/08/2025 11:58 AM [facility] CO2 27 21 - 32 mmol/L LAB CHEMISTRY METHOD 03/08/2025 11:58 AM [facility] Anion Gap 8 3 - 11 LAB CHEMISTRY METHOD 03/08/2025 11:58 AM [facility] Glucose 196(H) 70 - 100 mg/dL LAB CHEMISTRY METHOD 03/08/2025 11:58 AM [facility] BUN 10 5 - 25 mg/dL LAB CHEMISTRY METHOD 03/08/2025 11:58 AM [facility] Creatinine 1.06 0.50 - 1.10 mg/dL LAB CHEMISTRY METHOD 03/08/2025 11:58 AM [facility] eGFR 55(L) >=60 mL/min/1. 73m2 LAB CHEMISTRY METHOD 03/08/2025 11:58 AM [facility] Comment:Calculation based on the Chronic Kidney Disease Epidemiology Collaboration (CKD-EPI) equation refit without adjustment for race. BUN/Creatinine Ratio 9.4 LAB CHEMISTRY METHOD 03/08/2025 11:58 AM EDT [facility] Calcium 9.3 8.5 - 10.5 mg/dL LAB CHEMISTRY METHOD 03/08/2025 11:58 AM EDT [facility] Blood Venous blood specimen / Unknown Venipuncture / Unknown 03/08/2025 11:06 AM EDT 03/08/2025 11:25 AM EDT us Bessy Londono MD LAB BLOOD ORDERABLES Final Resul t [facility] ([facility]) [facility] [address] [place] [address], from Last 3 Months or Most Recently Relevant to Health [place] [id number] [employer] MEDICARE [facility] Advance Directives Documents on File Type Date Recorded Patient Curing Finisher Expl anation Power of Stripping Shovel Operator 03/11/2025 12:58 PM HCP Power of Stripping Shovel Operator 03/11/2025 12:47 PM HEAL TH CARE PROXY(NOT SIGNED) Care Teams Tubing Mill Operator Relationship Specialty Start Date End Date Chang Diaz FNP [address] [place] [phone] PCP - General Family Medicine 05/21/25
--- OUTSIDE RECORDS SUMMARY | 2025-09-20 11:41 | XMS_ITS | Encounter Summary ---
Author Organization [facility] Address [address] [place] [address] Phone Care Team Providers Care Principal Statistical Scientist Name Role Phone Buddy Morrow MD Primary Care Provider [phone] Encounter Details Date Type Department Care Team (Latest Contact Info) Description 12/28/2017 Transcribe Orders [facility] [address] [place] [address] Anmol John, DO [address] [facility] [address] [place] [address] [email or web address] Atherosclerosis of [place] coronary artery without angina pectoris, unspecified whether [place] or transplanted heart (Primary Dx) Social History [...] EST) SODIUM 140 133 - 146 mmol/L [facility] CHLORIDE 98 96 - 108 mmol/L [facility] POTASSIUM 4.4 3.3 - 5.1 mmol/L [facility] CO2 29 21 - 35 mmol/L [facility] BUN 14 6 - 19 mg/dL [facility] CREATININE 1.00 0.5 - 1.5 mg/dL [facility] GLUCOSE 133(H) 70 - 99 mg/dL [facility] CALCIUM 9.0 8.4 - 10.3 mg/dL [facility] EGFR 55(L) 60 - 1,000 mL/min/1.7 3m2 [facility] Comment:Abnormal if <60. If patient is -Jamaican, multiply the result by 1.21. ANION GAP 17 10 - 20 mmol/L [facility] Blood 12/28/2017 10:4 0 AM EST 12/28/2017 10:46 AM EST us Anmol John DO LAB BLOOD ORDERABLES Final Re sult [address] [address] * (ABNORMAL) CBC (12/28/2017 10:40 AM EST) WBC 6.49 3.40 - 11.20 K/uL [facility] RBC 4.91(H) 3.80 - 4.80 M/uL [facility] HGB 14.0 12.0 - 15.0 g/dL [facility] HCT 41.8 36.0 - 46.0 % [facility] PLT 231 130 - 400 K/uL [facility] MCV 85.1 79.0 - 98.0 fL [facility] MCH 28.5 27.0 - 34.8 pg [facility] MCHC 33.5 31.5 - 36.0 g/dL [facility] RDW 12.2 10.8 - 14.6 % [facility] MPV 11.0 9.4 - 12.4 fl [facility] NRBC 0.00 /100 WBCs [facility] ABSOLUTE NRBC 0.00 K/uL [facility] Blood 12/28/2017 10:4 0 AM EST 12/28/2017 10:46 AM EST us Anmol John DO LAB BLOOD ORDERABLES Final Re sult [address] [address] * PT-INR (12/28/2017 10:40 AM EST) PT 11.8 10.2 - 12.9 sec [facility] INR 1.0 0.9 - 1.1 [facility] Comment:Therapeutic range fo r oral Vitamin K antagonists: 2.0-3.5 Blood 12/28/2017 10:4 0 AM EST 12/28/2017 10:46 AM EST us Anmol John DO LAB BLOOD ORDERABLES Final Re sult [address] [address] documented in this encounter Visit Diagnoses Diagnosis Atherosclerosis of [place] coronary artery without angina pectoris, unspecified whether [place] or transplanted heart- Primary documented in this encounter Care Teams Principal Statistical Scientist Relationship Specialty Start Date End Date Buddy Morrow MD [address] [place] [address] [place] [address] PCP - General Internal Medicine 12/28/17 documented as of this encounter Additional Source Comments The information contained in this document represents components of the legal health record. It is not the complete legal health record.[facility]
[2025-09-27 17:53] LABS: CK-BB None Detected (None Detected); CK-MB 0 % (<5); CK-MM 100 % (95-100); Creatine Kinase,Total,Serum 28 U/L (18-225)
== END 2025-09-20 10:14 | disposition home or self-care (01) ==
LOC: HO.XRAY 10:13
PROVIDERS: PCP Internal Medicine
DX: R09.89 Other specified symptoms and signs involving the circulatory and respiratory systems (principal); R06.09 Other forms of dyspnea
CPT/HCPCS: 36415; 71046; 82552; 83880; 85652; 86141

== ENCOUNTER → 2025-09-20 10:29 | Outpatient (BNV) | payer MEDICARE, OTHER, SELFPAY | PROVIDERS: PCP Internal Medicine; Visit Provider Radiology Diagnostic Ultrasound | DX: R09.89 Other specified symptoms and signs involving the circulatory and respiratory systems (principal) | CPT/HCPCS: 71046 ==

== ENCOUNTER 2025-09-25 10:47 | Outpatient (REF) | payer MEDICARE, OTHER, SELFPAY ==
[2025-09-25 11:10] LABS: Appearance Urine Clear; Glucose Urine UA Negative (Negative); PH 5.5 (5.0-9.0); Specific Gravity - Urine 1.015 (1.005-1.025); UMIC TRIGGER UACC YES
--- OUTSIDE RECORDS SUMMARY | 2025-09-25 13:32 | XMS_ITS | Clinical Summary ---
Author Organization [facility] Address [address] [place] [address] Phone Care Team Providers Care Taper And Floater Name Role Phone Buddy Morrow MD Primary Care Provider [phone] Allergies Active Allergy Reactions Criticality Noted Date [...] Routine 12/28/2017 10:40 AM EST Atherosclerosis of [place] coronary artery without angina pectoris, unspecified whether [place] or transplanted heart from Last 3 Months or Most Recently Relevant to Health Maintenance Results * (ABNORMAL) Basic metabolic panel (12/28/2017 10:40 AM EST) SODIUM 140 133 - 146 mmol/L [facility] CHLORIDE 98 96 - 108 mmol/L [facility] POTASSIUM 4.4 3.3 - 5.1 mmol/L [facility] CO2 29 21 - 35 mmol/L [facility] BUN 14 6 - 19 mg/dL [facility] CREATININE 1.00 0.5 - 1.5 mg/dL [facility] GLUCOSE 133(H) 70 - 99 mg/dL [facility] CALCIUM 9.0 8.4 - 10.3 mg/dL [facility] EGFR 55(L) 60 - 1,000 mL/min/1.7 3m2 [facility] Comment:Abnormal if <60. If patient is -Colombian, multiply the result by 1.21. ANION GAP 17 10 - 20 mmol/L [facility] Blood 12/28/2017 10:4 0 AM EST 12/28/2017 10:46 AM EST us Anmol John DO LAB BLOOD ORDERABLES Final Re sult [facility] [address] [place] [address] from Last 3 Months or Most Recently Relevant to Health Maintenance [place] [address] MEDICARE PART A & B [facility] Address: [facility] OFFICE OF COMMUNITY CARE ATTN:[facility] [address] [address] [place] [address] [place] [address] MEDICARE PART A & [place] [address] MEDICARE PART A & [place] [address] MEDICARE PART A & B [facility] Address: [facility] OFFICE OF [facility] CARE ATTN: CLAIMS [address] [address] [place] [address] MEDICARE PART A & B [facility] Address[facility] ATTN:[facility] CLAIMS [address] [address] [place] [address] MEDICARE PART A & B [facility] Address: [facility] ATTN: CLAIMS [address] [address] [place] [address] MEDICARE PART A & B [facility] [place] [address] MEDICARE PART A & B [facility] [place] [address] MEDICARE PART A & B [facility] Address[facility] OFFICE OF COMMUNITY CARE ATTN:[facility] [address] [address] [place] [address] Advance Directives For more information, please contact: [phone] (9AM - 5PM [facility], Tuesday-Tuesday) * Full Code (Confirmed) (Latest Code Status on File) Date Activated Date Inactivated Comments 01/03/2018 11:38 AM 01/03/2018 5:47 PM Question Answer Comments Code Discussion Comments: Dr John Care Teams Taper And Floater Relationship Specialty Start Date End Date Buddy Morrow MD [address] [place] [address] [place] [address] PCP - General Internal Medicine 12/28/17 Additional Source Comments The information contained in this document represents components of the legal health record. It is not the complete legal health record.[facility]
--- OUTSIDE RECORDS SUMMARY | 2025-09-25 13:32 | XMS_ITS | Clinical Summary ---
Author Organization [facility] Address [address] [place] [address] Phone Care Team Providers Care Floor Covering Printer Assistant Name Role Phone Chang Diaz Poonam WEARING APPAREL PRESSER Primary Care Provider [phone] Allergies Active Allergy Reactions Criticality Noted Date [...] (diabetes mellitus, type 2) ([facility] V24, CM /[facility] V28) HTN (hypertension) Hypercholesterolemia Hypothyroid Resolved Problems Problem Noted Date Diagnosed Date Resolved Date Endometrial cancer ([facility] V24, [facility] V28) 03/05/20 25 03/11/2025 Surgical History Surgery [...] Coronary atherosclerosis of unspecified type of vessel, [place] or graft 07/25/2012 HTN (hypertension) 07/25/2012 Hypercholesterolemia [...] Description 11/12/2025 1:00 PM EST Office Visit [facility] Care [facility] [address] [place] [address] Bessy Londono MD [address] [place] [address] Health Maintenance Due Date Last Done Comments [...] Routine 03/08/2025 11:06 AM EDT Endometrial cancer ([facility] V24, [facility] V28) from Last 3 Months or Most Recently Relevant to Health Maintenance Results * (ABNORMAL) Basic metabolic panel (03/08/2025 11:06 AM EDT) Pathologist [facility] Sodium 139 133 - 145 mmol/L LAB CHEMISTRY METHOD 03/08/2025 11:58 AM [facility] Potassium 3.3(L) 3.5 - 5.5 mmol/L LAB CHEMISTRY METHOD 03/08/2025 11:58 AM [facility] Chloride 104 96 - 110 mmol/L LAB CHEMISTRY METHOD 03/08/2025 11:58 AM [facility] CO2 27 21 - 32 mmol/L LAB CHEMISTRY METHOD 03/08/2025 11:58 AM [facility] Anion Gap 8 3 - 11 LAB CHEMISTRY METHOD 03/08/2025 11:58 AM [facility] Glucose 196(H) 70 - 100 mg/dL LAB CHEMISTRY METHOD 03/08/2025 11:58 AM [facility] BUN 10 5 - 25 mg/dL LAB CHEMISTRY METHOD 03/08/2025 11:58 AM [facility] Creatinine 1.06 0.50 - 1.10 mg/dL LAB CHEMISTRY METHOD 03/08/2025 11:58 AM [facility] eGFR 55(L) >=60 mL/min/1. 73m2 LAB CHEMISTRY METHOD 03/08/2025 11:58 AM [facility] Comment:Calculation based on the Chronic Kidney Disease Epidemiology Collaboration (CKD-EPI) equation refit without adjustment for race. BUN/Creatinine Ratio 9.4 LAB CHEMISTRY METHOD 03/08/2025 11:58 AM EDT [facility] Calcium 9.3 8.5 - 10.5 mg/dL LAB CHEMISTRY METHOD 03/08/2025 11:58 AM EDT [facility] Blood Venous blood specimen / Unknown Venipuncture / Unknown 03/08/2025 11:06 AM EDT 03/08/2025 11:25 AM EDT us Bessy Londono MD LAB BLOOD ORDERABLES Final Resul t [facility] ([facility]) [facility] [address] [place] [address], from Last 3 Months or Most Recently Relevant to [place] [id number] [employer] MEDICARE [facility] Advance Directives Documents on File Type Date Recorded Patient Carpenter Labor Supervisor Expl anation Power of Line Servicer 03/11/2025 12:58 PM HCP Power of Line Servicer 03/11/2025 12:47 PM HEAL TH CARE PROXY(NOT SIGNED) Care Teams Floor Covering Printer Assistant Relationship Specialty Start Date End Date Chang Diaz FNP [address] [place] [phone] PCP - General Family Medicine 05/21/25
--- OUTSIDE RECORDS SUMMARY | 2025-09-25 13:32 | XMS_ITS | Encounter Summary ---
Author Organization [facility] Address [address] [place] [address] Phone Care Team Providers Care Mill Beam Fitter Name Role Phone Buddy Morrow MD Primary Care Provider [phone] Encounter Details Date Type Department Care Team (Late st Contact Info) Description 01/03/2018 Procedure Pass [facility] [address] [place] [address] Social History Tobacco Use Types Packs/Day Years [...] on filedocumented in this encounter Care Teams Mill Beam Fitter Relationship Specialty Start Date End Date Buddy Morrow MD [address] [place] [address] [place] [address] PCP - General Internal Medicine 12/28/17 documented as of this encounter Additional Source Comments The information contained in this document represents components of the legal health record. It is not the complete legal health record.[facility]
--- OUTSIDE RECORDS SUMMARY | 2025-09-25 13:33 | XMS_ITS | Patient Health Record ---
[facility] Address [address] [facility] [place], [place] [address] Care Team Providers Care Sole Cementer Name Role Phone Chang Diaz Primary Care Provider Benjamin West Unavailable [phone] Allergies Allergen (clinical drug ingredient) Drug/Non Drug [...] Problem Acquired hammer toe of right foot ([id number] ) Other hammer toe(s) (acquired), right foot (M20.41) Active confirmed Response to treatment, Improvemen t Problem Acquired hammer toe of left foot ([id number] ) Other hammer toe(s) (acquired), left foot (M20.42) Active confirmed Response to treatment, Improvemen t Problem Polyneuropathy due to diabetes mellitus type I (516373058) 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 confirmed Vital Signs Blood pressure diastolic 70 mm Hg 07/30/2025 Height 5ft4in in 07/30/2025 Blood pressure systolic 128 mm Hg 07/30/2025 Weight 185 lbs 07/30/2025 BMI 31.75 kg/m2 07/30/2025 Procedures Procedure Date Ordered Date Performed Result Body Sit e 10087-FQIZCPC NAIL, 6 OR MORE 10/09/2024 N/A 19182-WQYN SKIN LESIONS, OVER 4 10/09/2024 N/A 08703-LPFJHNI NAIL, 6 OR MORE 01/15/2025 N/A 38722-YLFD SKIN LESIONS, OVER 4 01/15/2025 N/A 03530-CEGYRBL NAIL, 6 OR MORE 04/23/2025 N/A 24372-QFYI SKIN LESIONS, OVER 4 04/23/2025 N/A 48690-UCGNSYU NAIL, 6 OR MORE 07/30/2025 N/A 26921-OPWB SKIN LESIONS, OVER 4 07/30/2025 N/A Encounters Encounter Location Date Provider Diagnosis [address] [address] 10/09/2024 Benjamin Leti Type 1 diabetes mellitus with diabetic polyneuropathy E10.42 and Tinea unguium B35.[address] [address] 01/15/2025 Benjamin Leti Type 1 diabetes mellitus with diabetic polyneuropathy E10.42 ; Other hammer toe(s) (acquired), right foot M20.41 ; Tinea unguium B35.1 and Other hammer toe(s) (acquired), left foot M20.[address] [address] 04/23/2025 Benjamin Leti Type 1 diabetes mellitus with diabetic polyneuropathy E10.42 and Tinea unguium B35.[address] [address] 07/30/2025 Benjamin Leti Type 1 diabetes mellitus [...] 02/11/2015 Hemoglobin A1c 12/02/2015 Hemoglobin A1c 06/03/2017 29531-CHPPVEI NAIL, 6 OR MORE 10/09/2024 61864-JHMISQU NAIL, 6 OR MORE 01/15/2025 18748-XUAQCTD NAIL, 6 OR MORE 04/23/2025 05924-DVXRSBF NAIL, 6 OR MORE 07/30/2025 61470-QALELWT NAIL, 6 OR MORE 09/12/2020 39026-VRQZVDD NAIL, 6 OR MORE 12/12/2020 53707-JGHGAZA NAIL, 6 OR MORE 03/13/2021 67879-DWHLXTO NAIL, 6 OR MORE 06/12/2021 24284-OMQTDXP NAIL, 6 OR MORE 09/18/2021 61292-HQCQAZK NAIL, 6 OR MORE 12/18/2021 95898-BRBUTCK NAIL, 6 OR MORE 03/23/2022 57264-CAPYEOH NAIL, 6 OR MORE 06/25/2022 75087-OQNYUHU NAIL, 6 OR MORE 09/24/2022 57213-QVULHFV NAIL, 6 OR MORE 12/24/2022 43757-QJCSRON NAIL, 6 OR MORE 03/25/2023 10104-GAPMFMY NAIL, 6 OR MORE 06/24/2023 93505-GZGOQWO NAIL, 6 OR MORE 09/27/2023 14108-SMIZPHC NAIL, 6 OR MORE 12/27/2023 43753-LFKDOYU NAIL, 6 OR MORE 03/27/2024 45223-MVEQCBH NAIL, 6 OR MORE 06/26/2024 21974-PYXFSNI NAIL, 6 OR MORE 08/22/2015 42483-FCZMNXP NAIL, 6 OR MORE 05/16/2015 71713-XGWLXRN NAIL, 6 OR MORE 02/11/2015 49975-VLOYWBC NAIL, 6 OR MORE 11/02/2013 37364-LCAUPAX NAIL, 6 OR MORE 02/01/2014 05173-ONUNLKE NAIL, 6 OR MORE 05/10/2014 86716-DNVKVUU NAIL, 6 OR MORE 08/13/2014 59825-XFZRPIM NAIL, 6 OR MORE 11/12/2014 18627-MILMUIG NAIL, 6 OR MORE 07/27/2011 46713-LFFSIZR NAIL, 6 OR MORE 10/15/2011 43862-LTETOFO NAIL, 6 OR MORE 01/14/2012 18956-XKODZSN NAIL, 6 OR MORE 04/11/2012 71093-ALZFFLN NAIL, 6 OR MORE 07/28/2012 71572-KPDRYXN NAIL, 6 OR MORE 10/13/2012 17557-QTIGZLK NAIL, 6 OR MORE 01/12/2013 64539-GCQOGOF NAIL, 6 OR MORE 04/13/2013 34299-PJQCAAT NAIL, 6 OR MORE 08/03/2013 57716-CTGOEYJ NAIL, 6 OR MORE 12/02/2015 52930-ASLUEAY NAIL, 6 OR MORE 03/02/2016 28510-AYAVFDC NAIL, 6 OR MORE 06/11/2016 24239-CPQAOAA NAIL, 6 OR MORE 09/10/2016 31384-NRZBRCC NAIL, 6 OR MORE 12/10/2016 45134-WCJXEMW NAIL, 6 OR MORE 03/04/2017 58089-CDWAYMB NAIL, 6 OR MORE 06/07/2017 84601-UZBFSPM NAIL, 6 OR MORE 09/06/2017 80035-XDPIDOH NAIL, 6 OR MORE 12/09/2017 63863-TABGVGQ NAIL, 6 OR MORE 03/10/2018 29691-MTLPPCI NAIL, 6 OR MORE 06/13/2018 34027-KRUWIWK NAIL, 6 OR MORE 09/12/2018 19908-FOVQIWA NAIL, 6 OR MORE 12/26/2018 29824-XBHVMYG NAIL, 6 OR MORE 03/27/2019 75093-OJCHTGX NAIL, 6 OR MORE 06/26/2019 37277-XKPIMTL NAIL, 6 OR MORE 09/25/2019 47530-OOHEOXE NAIL, 6 OR MORE 12/25/2019 00177-EGHCMQP NAIL, 6 OR MORE 06/13/2020 98071- Debride <25 sq cm 08/03/2013 59683-NUSJ SKIN LESIONS, OVER 4 11/02/20 13 96899-OXOJ SKIN LESIONS, OVER 4 11/12/20 14 79639-QHOE SKIN LESIONS, OVER 4 08/13/20 14 79670-LXQO SKIN LESIONS, OVER 4 05/10/20 14 18285-YWKE SKIN LESIONS, OVER 4 02/02/20 14 90157-CYVJ SKIN LESIONS, OVER 4 02/12/20 15 61139-MZKC SKIN LESIONS, OVER 4 05/16/20 15 42321-WWLZ SKIN LESIONS, OVER 4 08/22/20 15 52924-NRCG SKIN LESIONS, OVER 4 12/02/19 16 80587-TWMN SKIN LESIONS, OVER 4 06/13/20 20 18946-PGWI SKIN LESIONS, OVER 4 12/25/19 20 19775-RUPE SKIN LESIONS, OVER 4 09/25/20 19 78117-EOJS SKIN LESIONS, OVER 4 06/26/20 19 00506-QSVO SKIN LESIONS, OVER 4 03/27/20 19 31982-IQXP SKIN LESIONS, OVER 4 12/26/19 19 58310-DPJY SKIN LESIONS, OVER 4 09/12/20 18 33679-LMNF SKIN LESIONS, OVER 4 06/13/20 18 47801-DJGI SKIN LESIONS, OVER 4 03/10/20 18 12680-MZVR SKIN LESIONS, OVER 4 12/09/19 18 48921-USEX SKIN LESIONS, OVER 4 09/06/20 17 85118-BHMC SKIN LESIONS, OVER 4 03/04/20 17 99058-OSKD SKIN LESIONS, OVER 4 06/07/20 17 03613-CHQA SKIN LESIONS, OVER 4 12/10/19 17 19387-AMSE SKIN LESIONS, OVER 4 09/10/20 16 69291-UXNO SKIN LESIONS, OVER 4 06/11/20 16 97481-OFRM SKIN LESIONS, OVER 4 03/02/20 16 56742-WNST SKIN LESIONS, OVER 4 06/26/20 24 66707-SFTO SKIN LESIONS, OVER 4 03/27/20 01381-AZDA SKIN LESIONS, OVER 4 12/27/19 67570-ZLOD SKIN LESIONS, OVER 4 09/27/20 20737-VQCY SKIN LESIONS, OVER 4 06/24/20 23356-LCDB SKIN LESIONS, OVER 4 03/25/20 86903-DBWH SKIN LESIONS, OVER 4 12/24/19 54170-ITSM SKIN LESIONS, OVER 4 09/24/20 51629-SGPS SKIN LESIONS, OVER 4 06/25/20 20555-XFHH SKIN LESIONS, OVER 4 03/23/20 35353-WQHP SKIN LESIONS, OVER 4 12/18/19 16634-KQAR SKIN LESIONS, OVER 4 09/18/20 85316-RDXH SKIN LESIONS, OVER 4 06/12/20 29794-XHHE SKIN LESIONS, OVER 4 03/13/20 47008-VEBQ SKIN LESIONS, OVER 4 12/12/19 14196-MOOJ SKIN LESIONS, OVER 4 09/12/20 43006-RZUT SKIN LESIONS, OVER 4 07/30/20 80817-ENQA SKIN LESIONS, OVER 4 04/23/20 21958-BRBN SKIN LESIONS, OVER 4 01/15/20 25 55717-MHBM SKIN LESIONS, OVER 4 10/09/20 24 10466-UIOM SKIN LESIONS, 2 TO 4 07/27/20 11 73322-FCLF SKIN LESIONS, 2 TO 4 04/13/20 13 82480-AHIT SKIN LESIONS, 2 TO 4 01/12/20 13 63185-TPLU SKIN LESIONS, 2 TO 4 10/13/20 12 11281-JYUR SKIN LESIONS, 2 TO 4 07/28/20 12 48718-KJYI SKIN LESIONS, 2 TO 4 04/11/20 12 07309-UDVC SKIN LESIONS, 2 TO 4 01/14/20 12 74368-QAQQ SKIN LESIONS, 2 TO 4 10/15/20 11 HEMOGLOBIN A1C (GLYCOHEMOGLOBIN) 020 Next Appt Details Provider Name:Benjamin Landeros , 11/15/2025 12:15:00 PM, [address] [place], [address], Insurance Providers Payer Name Payer Address Payer Phone Subscriber Number Group Number Insured Name Patient Relationship to Insured Coverage Start Date Coverage End Date [employer] Medicare Adv-[id number] [address] [address] [place] [address] [id number] Miriam Henry Self - patient is the insured [facility] Claims [facility] Office of Community Care [address] [address] [place] [address] [id number] Miriam Henry Self - patient is the [...] [facility], [facility] 05[facility]17[facility]24 [facility] 02/27/2021 [facility]- Hiatal hernia flare up 05/21/19 [facility] virus 11/21/2017
--- OUTSIDE RECORDS SUMMARY | 2025-09-25 13:33 | XMS_ITS | Encounter Summary ---
Author Organization [facility] Address [address] [facility] [place] [address] Phone Care Team Providers Care Vacuum System Tester Name Role Phone Buddy Morrow MD Primary Care Provider Encounter Details Date Type Department Care Team (Latest Contact Info) Description 12/28/[address] [facility] [address] [place] [address] Anmol John, DO [address] [facility] [address] [place] [address] [email or web address] Atherosclerosis of [place] coronary artery without angina pectoris, unspecified whether [place] or transplanted heart (Primary Dx) Social History [...] EST) SODIUM 140 133 - 146 mmol/L [facility] CHLORIDE 98 96 - 108 mmol/L [facility] POTASSIUM 4.4 3.3 - 5.1 mmol/L [facility] CO2 29 21 - 35 mmol/L [facility] BUN 14 6 - 19 mg/dL [facility] CREATININE 1.00 0.5 - 1.5 mg/dL [facility] GLUCOSE 133(H) 70 - 99 mg/dL [facility] CALCIUM 9.0 8.4 - 10.3 mg/dL [facility] EGFR 55(L) 60 - 1,000 mL/min/1.7 3m2 [facility] Comment:Abnormal if <60. If patient is -Spanish, multiply the result by 1.21. ANION GAP 17 10 - 20 mmol/L [facility] Blood 12/28/2017 10:4 0 AM EST 12/28/2017 10:46 AM EST us Anmol John DO LAB BLOOD ORDERABLES Final Re sult [address] [address] * (ABNORMAL) CBC (12/28/2017 10:40 AM EST) WBC 6.49 3.40 - 11.20 K/uL [facility] RBC 4.91(H) 3.80 - 4.80 M/uL [facility] HGB 14.0 12.0 - 15.0 g/dL [facility] HCT 41.8 36.0 - 46.0 % [facility] PLT 231 130 - 400 K/uL [facility] MCV 85.1 79.0 - 98.0 fL [facility] MCH 28.5 27.0 - 34.8 pg [facility] MCHC 33.5 31.5 - 36.0 g/dL [facility] RDW 12.2 10.8 - 14.6 % [facility] MPV 11.0 9.4 - 12.4 fl [facility] NRBC 0.00 /100 WBCs [facility] ABSOLUTE NRBC 0.00 K/uL [facility] Blood 12/28/2017 10:4 0 AM EST 12/28/2017 10:46 AM EST us Anmol John DO LAB BLOOD ORDERABLES Final Re sult [address] [address] * PT-INR (12/28/2017 10:40 AM EST) PT 11.8 10.2 - 12.9 sec [facility] INR 1.0 0.9 - 1.1 [facility] Comment:Therapeutic range fo r oral Vitamin K antagonists: 2.0-3.5 Blood 12/28/2017 10:4 0 AM EST 12/28/2017 10:46 AM EST us Anmol John DO LAB BLOOD ORDERABLES Final Re sult [address] [address] documented in this encounter Visit Diagnoses Diagnosis Atherosclerosis of [place] coronary artery without angina pectoris, unspecified whether [place] or transplanted heart- Primary documented in this encounter Care Teams Vacuum System Tester Relationship Specialty Start Date End Date Buddy Morrow MD [address] [place] [address] [place] [address] PCP - General Internal Medicine 12/28/17 documented as of this encounter Additional Source Comments The information contained in this document represents components of the legal health record. It is not the complete legal health record.[facility]
== END 2025-09-25 10:48 | disposition home or self-care (01) ==
LOC: HO.LNP 10:47
DX: I10 Essential (primary) hypertension (principal); I25.10 Atherosclerotic heart disease of native coronary artery without angina pectoris; E11.65 Type 2 diabetes mellitus with hyperglycemia; E11.69 Type 2 diabetes mellitus with other specified complication; E78.5 Hyperlipidemia, unspecified; E66.9 Obesity, unspecified; K44.9 Diaphragmatic hernia without obstruction or gangrene; Z79.4 Long term (current) use of insulin
CPT/HCPCS: 81001

== ENCOUNTER 2025-10-14 12:54 | Outpatient (AMB) | payer MEDICARE, OTHER, SELFPAY ==
--- NOTE | 2025-10-14 13:13 | MHC.OFFVIS ---
Intake Visit Reasons: 6M follow up/ OAB Intake Note: Patient is present for 6m follow up/OAB Urology Medications: Amitriptyline, Myrbetriq Antibiotic Allergy:None Blood Thinner:Aspirin PVR:80ml Marketing Analytics Lead Required: No Allergies hydrocodone (From VICODIN) Allergy (Unknown, Verified 10/14/25 13:14) HEADACHE oxycodone (OXYCODONE) Allergy (Unknown, Verified 10/14/25 13:14) HIVES procaine (From NOVOCAIN) Allergy (Unknown, Verified 10/14/25 13:14) FAINTED Medication List - Last Reconciled 10/14/25 by Emily Overton MD amitriptyline 25 mg PO DAILY amoxicillin-pot clavulanate 875-125 mg 1 tab PO BID 7 days aspirin 81 mg PO DAILY azithromycin For 250 mg dose pack: take 500 mg today (day 1), then 250 mg for 4 days (days 2-5) PO bisacodyl (Dulcolax (bisacodyl)) 10 mg (2 x 5 mg) PO BEDTIME calcium carbonate (Tums) 200 mg PO BID cholecalciferol (vitamin D3) 25 mcg PO DAILY cinnamon bark (Cinnamon) 1,000 mg PO BID esomeprazole magnesium (Nexium) 40 mg PO DAILY fish,bora,flax oils-om3,6,9no1 1,200 mg caps PO gabapentin 600 mg PO DAILY levothyroxine 112 mcg PO DAILY losartan 25 mg PO DAILY metformin 1,000 mg PO BID metoprolol tartrate 12.5 mg (1/2 x 25 mg) PO BID mirabegron ER (Myrbetriq) 50 mg PO DAILY multivitamin 1 tab PO DAILY niacin 50 mg PO BEDTIME semaglutide (Ozempic) 0.25 mg (0.368 mL) subcut QWEEK simvastatin 40 mg PO BEDTIME 90 days HPI Comments Details: 10/14/25--Miriam is a 75-year-old female who is followed for overactive bladder symptoms she Myrbetriq 25 mg urinalysis today scan PVR 80 mL. History of Present Illness The patient is a 75-year-old female presenting with overactive bladder symptoms. She has been on Myrbetriq 25 mg for management, but reports that while it is effective, it does not always work well. There is a plan to increase the Myrbetriq dosage to 50 mg due to suboptimal control of symptoms at the current dose. Results - Urinalysis: Within normal limits - Bladder scan post-void residual: 80 mL Plan Overactive Bladder - Increase Myrbetriq dosage from 25 mg to 50 mg due to suboptimal symptom control. - Follow-up scheduled in 9 to 10 months to assess symptom management and medication efficacy. 04/11/25--74-year-old female who was initially evaluated 11/07/2024 for urinary symptoms of incontinence. She was prescribed Myrbetriq 25 mg daily. 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 She states a [place]on catheter was placed during that admission. Evaluation today she is unable to provide a urine specimen random bladder scan PVR 212 mL. She denies UTI symptoms. She states that she has noticed over 75% improvement in her bladder control, although she does get occasional urine leakage a couple times a week. We will continue Myrbetriq 25 mg daily follow-up in 6 months. 11/07/24--Miriam is a 74 year old female who is here for evaluation for urinary incontinence. Past Medical history significant for CAD, DM on diuretics prn. The patient complains of daytime urinary frequency, urinary incontinence, wears a pad, nocturia denies hematuria, dysuria, feeling of incomplete bladder emptying, history of kidney stones, I have discussed avoiding dietary bladder irritants, including to cut back on caffeine usage. The patient is unable to provide a urine sample. Bladder scan PVR minimal. She will leave urine sample at the lab later this week, trial of Myrbetriq. 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 Tubular adenoma of colon Hx of esophageal ulcer (~04/2024) Dysphagia Hyperlipidemia associated with type 2 diabetes mellitus Post-menopausal Screening for breast cancer Dizziness Pre-op exam Hiatal hernia (~04/2024) IDDM (insulin dependent diabetes mellitus) Pre-op exam Diabetic polyneuropathy associated with type 2 diabetes mellitus Obesity (BMI 30-39.9) Hypertension Hypothyroidism 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 Surgical History History of hysterectomy History of esophagogastroduodenoscopy (EGD) History of colonoscopy History of repair of hiatal hernia History of cardiac catheterization Hx of hammer toe correction Hx of shoulder surgery Hx of tonsillectomy Hx laparoscopic cholecystectomy Hx of appendectomy Family History Brother Diabetes Father Lung cancer Mother HTN (hypertension) Social History Household Members: Family Housing: House Are you a primary career services representative to a significant other at home: No Do you presently have visiting nurse or other home services: No Alcohol intake: current Alcohol intake frequency: holidays/special occasions only Comment: once q 6 months 1 drink Patient Tobacco Use Status: Former Tobacco user Tobacco use type: Cigarette Years Smoked: 20 quit 1985 e-Cigarette/Vaping Use: Never Used Second Hand Smoke Exposure: Yes service: No Current occupational status: retired Cognitive needs: No Hearing needs: No Vision needs: Yes (Glasses) Review of Systems Const All systems reviewed & are unremarkable except as noted in HPI and below Reports no additional complaints Eyes Reports no additional complaints ENT Reports no additional complaints Card Reports no additional complaints Resp Reports no additional complaints GI Reports no additional complaints Reports as per HPI Musc Reports no additional complaints Skin/Breast Reports system reviewed and no additional complaints, except as documented Neuro Reports no additional complaints Psych Reports no additional complaints Endo Reports no additional complaints Mark/Lymph Reports no additional complaints Aller/Immun Reports no additional complaints Assessment & Plan Assessment & Plan (1) Urinary incontinence: Code(s): R32 - Unspecified urinary incontinence Category: Medical Qualifiers: Urinary Incontinence type: unspecified incontinence Qualified Code(s): R32 - Unspecified urinary incontinence (2) Urinary frequency: Code(s): R35.0 - Frequency of micturition Category: Medical (3) OAB (overactive bladder): Code(s): N32.81 - Overactive bladder Category: Medical Plan Plan Overactive Bladder - Increase Myrbetriq dosage from 25 mg to 50 mg due to suboptimal symptom control. - Follow-up scheduled in 9 to 10 months to assess symptom management and medication efficacy. Medications: New mirabegron ER (Myrbetriq) 50 mg PO DAILY 90 tabs 3RF Discontinued mirabegron ER (Myrbetriq) Discontinued Reason: Doctor's Order 25 mg PO DAILY 90 tabs 3RF urine leakage Patient Instructions: The patient had an opportunity to ask questions regarding treatment plan. The patient expressed understanding and agreement with the above treatment plan. The patient is aware they should contact our office by phone for worsening of their current condition or the appearance of new symptoms. Compliance is encouraged with any medications and followup testing that is ordered. It is a privilege to be allowed the opportunity to participate in the urologic care of your patient. If you have any questions or concerns regarding treatment for the above conditions please do not hesitate to contact me. The office telephone contact is [phone]. This note is constructed in part using voice recognition software. While every effort has been made to ensure accuracy food and drug inspector errors may have been included. Yours sincerely, Emily Overton MD Scribe Plan - Not visible on output: Patient was informed and verbally consented to the use of an ambient scribe for clinic note documentation during this visit. Coding Level of Care Code Est Pt Level 4 (52584) Diagnoses Urinary incontinence, unspecified type R32 Urinary Incontinence type: unspecified incontinence Urinary frequency R35.0 OAB (overactive bladder) N32.81
== END 2025-10-14 13:45 | disposition home or self-care (01) ==
LOC: HO.HUSH 12:55
PROVIDERS: PCP Internal Medicine; Visit Provider Urology
DX: R32 Unspecified urinary incontinence (principal); R35.0 Frequency of micturition; N32.81 Overactive bladder; Z13.9 Encounter for screening, unspecified
CPT/HCPCS: 99214

== ENCOUNTER → 2025-10-14 12:54 | Outpatient (BNVA) | payer MEDICARE, OTHER, SELFPAY | PROVIDERS: PCP Internal Medicine; Visit Provider Urology | DX: R32 Unspecified urinary incontinence (principal); N32.81 Overactive bladder; R35.0 Frequency of micturition; Z13.9 Encounter for screening, unspecified | CPT/HCPCS: 51798; 81003; 99212 ==